=== PATIENT | female | born 1955 | race Caucasian/White ===

== ENCOUNTER 2023-11-24 10:09 | Outpatient (OUT) | payer MEDICARE, OTHER, SELFPAY ==
--- NOTE | 2023-11-24 | XR_ITS ---
The [address] [address] Patient Name: VIKTORIA HIDALGO MRN: [id number] date: 1955 Sex: F Assigned Patient Location: Current Patient Location: Accession/Order Number: [id number] Exam Date: 11/24/2023 10:10 Report Date: 11/25/2023 06:16 At the request of: JEEVAN RASCON Procedure: XR foot LT min 3V PROCEDURE: XR foot LT min 3V HISTORY: LEFT FOOT PAIN ; follow-up 5th metatarsal fracture COMPARISON: XR foot left 11/01/2023 FINDINGS: BONES:Stable mild medial displacement of the oblique fracture involving the neck of the 5th metatarsal. No appreciable callus formation or increased density of the fracture line. No articular surface involvement. Bunion formation of the first metatarsal head. SOFT TISSUES:Mild lateral soft tissue swelling. EFFUSION:None visible. OTHER: Negative. XR/XR foot LT min 3V IMPRESSION: 1. Stable 5th metatarsal fracture without radiographic evidence of bone healing. No change in alignment. Electronically authenticated by: SURI TUTTLE Date: 11/25/2023 06:16
== END 2023-11-24 10:10 | disposition home or self-care (01) ==
LOC: EC 10:09
PROVIDERS: PCP Family Medicine; Visit Provider Podiatrist Foot & Ankle Surgery
DX: M79.672 Pain in left foot (principal); S92.352A Displaced fracture of fifth metatarsal bone, left foot, initial encounter for closed fracture
CPT/HCPCS: 73630

== ENCOUNTER 2023-12-15 10:21 | Outpatient (OUT) | payer MEDICARE, OTHER, SELFPAY ==
--- NOTE | 2023-12-15 | XR_ITS ---
The [address] [address] Patient Name: VIKTORIA HIDALGO MRN: [id number] date: 1955 Sex: F Assigned Patient Location: Current Patient Location: Accession/Order Number: [id number] Exam Date: 12/15/2023 10:35 Report Date: 12/17/2023 04:33 At the request of: JEEVAN RASCON Procedure: XR foot CHEMA min 3V EXAMINATION: XR foot CHEMA min 3V HISTORY: BILATERAL FOOT PAIN COMPARISON: XR foot left 11/24/2023 FINDINGS: RIGHT FINDINGS: BONES: Mild degenerative change of the first metatarsophalangeal joint. Prominent calcaneal plantar spur. SOFT TISSUES: No visible soft tissue swelling. OTHER: Negative. LEFT FINDINGS: BONES: Mildly displaced oblique 5th metatarsal fracture with mild callus formation and slightly increased density of the fracture line. Mild bunion formation. Prominent calcaneal plantar spur. SOFT TISSUES: No visible soft tissue swelling. OTHER: Negative. XR/XR foot CHEMA min 3V IMPRESSION: RIGHT CONCLUSION: 1. Mild degenerative changes. No acute abnormality. LEFT CONCLUSION: 1. Stable mildly displaced 5th metatarsal fracture with evidence of early bone healing. No intra-articular extension. 2. Mild degenerative changes. Electronically authenticated by: SURI TUTTLE Date: 12/17/2023 04:33
--- OUTSIDE RECORDS SUMMARY | 2023-12-15 10:42 | XMS_ITS | CCD ---
Author Organization [facility] Care Team Providers Care Tool Maker Name Role Phone Svetlanadiogenesherber Benito S Primary Care Provider Wilmer Johnson Unavailable Unknown, Referring Provider Unavailable Unav ailable Unavailable Unavailable Unavailable Unavailable Unavailable Unavailable Inocencio Rosado Unavailable UNKNOWN, PCP Primary Care Unavailable Flower Nguyễn Attending Unavailable Flower Nguyễn Attending Unavailable Inocencio Rosado Primary Care Unavailab le TorFlower lan Attending Unavailable Inocencio Rosado Primary Care Unavailab le Torer, Ms. Crenshaw Attending Unavailable Torer, Ms. Crenshaw Referring Unavailable Ashlee, Dr. Inocencio Hairston Primary [facility] Unava ilable Torer, Ms. Crenshaw Attending Unavailable Toreliseo, Ms. Crenshaw Referring Unavailable Ashlee, Dr. Inocencio Hairston [facility] Care Unava ilable Torer, Ms. Crenshaw Referring Unavailable Torer, MsMaximiliano Crenshaw Attending Unavailable Ashlee, Dr. Inocencio Hairston Primary Care Unava ilable Torer, MsMaximiliano Crenshaw Referring Unavailable Torer, MsMaximiliano Crenshaw Attending Unavailable Ashlee, Dr. Inocencio Hairston [facility] Care Unava ilable Torer, Ms. Crenshaw Attending Unavailable Ashlee, Dr. Inocencio Hairston Primary [facility] Unava ilable Torer, MsMaximiliano Crenshaw Referring Unavailable Torer, MsMaximiliano Crenshaw Attending Unavailable Torer, MsMaximiliano Crenshaw Referring Unavailable Ashlee, Dr. Inocencio Hairston [facility] Unava ilable Torer, Ms. Crenshaw Attending Unavailable Torer, Ms. Crenshaw Referring Unavailable Cadigan, Dr. Inocencio Hairston [facility] Unava ilable Unavailable Unavailable Calderon, Dr. Aundrea Guadalupe Attending Vanessa vailable Calderon, Dr. Aundrea Guadalupe Referring Vanessa vailable Cadigan, Dr. Inocencio Hairston [facility] Unava ilable TORELISEO, TAMMI CAMPA Attending Unavailable TORELISEO, TAMMI CAMPA Referring Unavailable Cadigan, Dr. Inocencio Hairston [facility] Unava ilable Zoie Crump Attending Unavailable Zoie Crump Referring Unavailable Cadigan, Dr. Inocencio Hairston [facility] Unava ilable Astor, Ms. Griselda Attending Unavailable Cassius, Ms. Griselda Referring Unavailable Cadigan, Dr. Inocencio Hairston [facility] Unava ilable Yakelin Acosta Attending Unavailable Cassius, Ms. Griselda Referring Unavailable Cadigan, Dr. Inocencio Hairston [facility] Monique Unava ilable Cassius, Ms. Griselda Attending Unavailable Cassius, Ms. Griselda Referring Unavailable Cadigan, Dr. Inocencio Hairston [facility] Monique Unava ilable Cassius, Ms. Griselda Attending Unavailable Astor, Ms. Griselda Referring Unavailable Cadigan, Dr. Inocencio Hairston [facility] Unava ilable Astor, Ms. Griselda Attending Unavailable Cassius, Ms. Griselda Referring Unavailable Cadigan, Dr. Inocencio Hairston [facility] Unava ilable Zoie Crump Attending Unavailable Zoie Crump Referring Unavailable Cadigan, Dr. Inocencio Hairston [facility] Monique Unava ilable Karie, Ms. Cosme Jaeger Attending Unava ilable Zoie Crump Referring Unavailable Cadigan, Dr. Inocencio Hairston [facility] Monique Unava ilable Karie, Ms. Cosme Jaeger Attending Unava ilable Zoie Crump Referring Unavailable Cadigan, Dr. Inocencio Hairston [facility] Unava ilable Astor, Ms. Griselda Attending Unavailable Astor, Ms. Griselda Referring Unavailable Cadigan, Dr. Inocencio Hairston [facility] Unava ilable Eve Mccollum Attending Unavailable ProsEve wilkins Referring Unavailable Cadigan, Dr. Inocencio Hairston [facility] Unava ilable Cassius, Ms. Griselda Attending Unavailable Astor, Ms. Griselda Referring Unavailable Cadigan, Dr. Inocencio Hairston [facility] Unava ilable Cassius, Ms. Griselda Attending Unavailable Cassius, Ms. Griselda Referring Unavailable Cadigan, Dr. Inocencio Hairston [facility] Unava ilable Astor, Ms. Grieslda Attending Unavailable Astor, Ms. Griselda Referring Unavailable Cadigan, Dr. Inocencio Hairston [facility] Unava ilable Daniel Jimenez Attending Unavailable Cadigan, Dr. Inocencio Hairston Referring Unava ilable Cadigan, Dr. Inocencio Hairston [facility] Unava ilable Daniel Jimenez Attending Unavailable TORER, TAMMI SESAYIANA Referring Unavailable Cadigan, Dr. Inocencio Hairston [facility] Unava ilable Astor, Ms. Griselda Attending Unavailable Astor, Ms. Griselda Referring Unavailable Cadigan, Dr. Inocencio Hairston [facility] Unava ilable Prosak, Eve Attending Unavailable Prosak, Eve Referring Unavailable Cadigan, Dr. Inocencio Hairston [facility] Unava ilable Cassius, Ms. Griselda Attending Unavailable Cassius, Ms. Griselda Referring Unavailable Cadigan, Dr. Inocencio Hairston [facility] Unava ilable Prosak, Eve Attending Unavailable Prosak, Eve Referring Unavailable Cadigan, Dr. Inocencio Hairston [facility] Unava ilable Prosak, Eve Attending Unavailable Prosak, Eve Referring Unavailable Cadigan, Dr. Inocencio Hairston [facility] Unava ilable BRADESCA, PAC LISSA ELIANA Attending Unavai lable BRADESCA, PAC LISSA ELIANA Referring Unavai lable Cadigan, Dr. Inocencio Hairston [facility] Unava ilable Devon, Dr. Xavier Bianchi Attending Unavail able Trager, Dr. Xavier Bianchi Referring Unavail able Cadigan, Dr. Inocencio Hairston [facility] Unava ilable Trager, Dr. Xavier Bianchi Attending Unavail able Trager, Dr. Xavier Bianchi Referring Unavail able Cadigan, Dr. Inocencio Hairston [facility] Unava ilable BRADESCA, PAC LISSA ELIANA Attending Unavai lable BRADESCA, PAC LISSA ELIANA Referring Unavai lable Cadigan, Dr. Inocencio Hairston [facility] Unava ilable Astor, Ms. Griselda Attending Unavailable Cassius, Ms. Griselda Referring Unavailable Cadigan, Dr. Inocencio Hairston [facility] Unava ilable Cassius, Ms. Griselda Attending Unavailable Astor, Ms. Griselda Referring Unavailable Cadigan, Dr. Inoecncio Hairston Primary Care Unava ilable Cassius, . Griselda Attending Unavailable Astor, Ms. Griselda Referring Unavailable Cadigan, Dr. Inocencio Hairston Primary Care Unava ilable Astor, MsMaximiliano Villalobos Attending Unavailable Cassius, Ms. Griselda Referring Unavailable Cadigan, Dr. Inocencio Hairston Primary Care Unava ilable Astor, MsMaximiliano Villalobos Attending Unavailable Astor, Ms. Griselda Referring Unavailable Ashlee, Dr. Inocencio Hairston Primary Care MD Inocencio Austin Primary Care Provider ORLANDO Goff Attending Provider Ashu Goff Attending Unavailab Ashu Willis Admitting Unavailab caridad Rosado, Inocencio Gilmore Primary Care Unavailable Inocencio Rosado MD Primary Care Provider Inocencio Rosado MD Attending Unavailable Inocencio Rosado MD Primary Care Unavailable HOUSE, NICOLE P Primary Care Unavailable HOUSE, NICOLE P Primary Care Unavailable HOUSE, NICOLE P Primary Care Unavailable HOUSE, NICOLE P Primary Care Unavailable HOUSE, DO NICOLE P Admitting Unavailable HOUSE, DO NICOLE P Attending Unavailable Moser, Patricio L Attending Unavailable HOUSE, NICOLE P Primary Care Unavailable Moser, Patricio Silverio Admitting Unavailable HOUSE, DO NICOLE P Attending Unavailable HOUSE, NICOLE P Primary Care Unavailable HOUSE, DO NICOLE George Admitting Unavailable Inocencio Rosado MD Primary Care Unavailable Shell, Ashu Admitting Unavailable Ashu Goff Attending Unavailable HOUSE, NICOLE P Primary Care Unavailable HOUSE, DO NICOLE P Attending Unavailable HOUSE, DO NICOLE P Attending Unavailable Inocencio Rosado MD Primary Care Unavailable HOUSE, DO NICOLE P Admitting Unavailable HOUSE, DO NICOLE P Attending Unavailable HOUSE, NICOLE P Primary Care Unavailable Inocencio Rosado MD Attending Unavailable Inocencio Rosado MD Primary Care Unavailable Medications Current Medications Medication Drug Class(es) Dates Sig (Normalized) Sig (Original) azelastine hydrochloride 0.137 mg/actuat metered dose nasal spray (20 sources) Histamine-1 Receptor Antagonist Start: 09-10-2021 azelastine (Astelin) 137 mcg (0.1 %) nasal spray Administer into affected nostril(s). 0 09/10/2021 Active Start: 06-07-2017 End: 07-14-2021 Azelastine Discontinued 2 SP RAY INTRANASAL As Directed June 07, 2017 12:00am July 14, 2021 7:41am azelastine (ASTE MAKSIM) 0.1% nasal spray Use 1 Colt in each nostril as needed. 0 Active 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: Use 1 Colt in each nostril as needed. Calcium (20 sources) Phosphate Binder, Calcium Start: 06-07-2017 take 1 tablet by mouth three times daily Fy-N7-Hfa-Zinc-Buffer Operator- Cesar-Nehalem (Caltrate 600-D Plus Minerals) 600 mg calcium- 800 unit-40 mg Tablet,Chewable Active 1 TAB PO Three times daily June 07, 2017 12:00am Calcium + D TABS Quantity: 0 Refills: 0 Ordered: 16-Oct-2021 DO Active CALCIUM CITRATE-VITAMIN D3 ORAL (1 source) CALCIUM CITRATE-VITAMIN D3 ORAL Take by mouth. 0 Active cetirizine hydrochloride 10 mg oral tablet (20 sources) Histamine-1 Receptor Antagonist Start: 06-07-19 take 1 tablet by mouth every twenty-four hours as needed cetirizine (ZyrTEC) 10 mg tablet Take 1 tablet (10 mg) by mouth once daily as needed. 0 10/06/2021 Active cetirizine HCl ( ZYRTEC ORAL) Take by mouth. 0 Active 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: Take by mouth. chlorzoxazone 500 mg oral tablet (1 source) Muscle Relaxant Start: take 1 tablet by mouth four times daily as needed chlorzoxazone (PARAFON FORTE DSC) 500 mg tablet Indications: Migraine without aura and without status migrainosus, not intractable , Cervical paraspinal muscle spasm , Occipital neuralgia of right side Take 1 tablet by mouth four times daily as needed. 20 tablet 0 09/19/2021 Active Start: 09-19-2021 take 1 tablet by joey th four times daily as needed chlorzoxazone (PARAFON FORTE DSC) 500 mg tablet Indications: Migraine without aura and without status migrainosus, not intractable , Cervical paraspinal muscle spasm , Occipital neuralgia of right side Take 1 tablet by mouth four times daily as needed. 20 tablet 0 09/19/2021 Active 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: Take 1 tablet by joey th four times daily as needed. esomeprazole 40 mg delayed release oral capsule (1 source) Proton Pump Inhibitor Start: 3 take 1 capsule by mouth once daily esomeprazole (NexIUM) [address] capsule Take 1 capsule (40 mg) by mouth once daily. 0 06/04/2022 Active eszopiclone 3 mg oral tablet (20 sources) Start: 8 take 1 tablet by mouth once daily at bedtime Lunesta 3 mg tablet Take 1 tablet (3 mg) by mouth once daily at bedtime. 0 10/06/2021 Active eszopiclone (ROBERTO ESTA ORAL) Take by mouth. 0 Active 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: Take by mouth. ferrous sulfate 325 mg oral tablet (3 sources) Start: 07-14-2021 take 1 tablet by mouth twice daily Ferrous Sulfate (Iron (Ferrous Sulfate)) 325 mg (65 mg iron) Tablet Active 325 MG PO Twice daily July 13, 2021 11:00pm 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: 325 mg twice daily. LORazepam 0.5 mg oral tablet (20 sources) Benzodiazepine Start: 10-06-2021 take 1 tablet by mouth every twenty-four hours as needed Ativan 0.5 mg tablet Take 1 tablet (0.5 mg) by mouth once daily as needed. 0 10/06/2021 Active Start: 06-22-2021 LORazepam (ATI VAN) 0.5 mg 0.5 mg as needed. anxiety 0 06/22/2021 Active 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: 0.5 mg as needed. an xiety magnesium oxide 400 mg oral tablet (1 source) magnesium oxide (Mag-Ox) 400 mg tablet Take by mouth. 0 Active niacinamide 500 mg oral tablet (20 sources) Start: 10-06-2021 take 1 tablet by mouth once daily niacinamide 500 mg tablet Take 1 tablet (500 mg) by mouth once daily. 0 10/06/2021 Active Start: 07-14-2021 take 500 mg by mouth twice daily Niacinamide Active 500 MG PO Twice daily July 13, 2021 11:00pm NON FORMULARY (1 source) NON FORMULARY Vy epti 100 mg/ml intravenous solution infuse 300mg in 100 ml naci 0.9% iv over 30 min every 3 months 0 Active omeprazole 20 mg delayed release oral capsule (2 sources) Proton Pump Inhibitor Start: 07-14-2021 take 20 mg by mouth once daily Omeprazole Active 20 MG PO Daily July 13, 2021 11:00pm Start: 05-03-2021 Omeprazole 20 MG Oral Capsule Delayed Release Quantity: 90 Refills: 0 Ordered: 03-May-2021 DO Start : 03-May-2021 Active predniSONE 10 mg oral tablet (20 sources) Start: 09-24-2022 predniSONE (De ltasone) 10 mg tablet Take by mouth. 0 09/24/2022 Active Start: 09-24-2022 take 2 tablets by mo [facility] every other day, then take 4 tablets by mouth every other day, then take 3 tablets by mouth once daily, then take 2 tablets by mouth once daily predniSONE 10 MG Oral Tablet Take 60MG PO dailyX 2 days,50MG PO dailyx 2 days, 40MG PO dailyx 2 days, 30MG PO daily X2days, 20MG PO daily x2days,10MG PO x2 days Quantity: 45 Refills: 0 Ordered: 24-Sep-2022 Zoie Estrada Start : 24-Sep-2022 Active Start: 10-15-2021 take 2 tablets by mo uth every other day, then take 4 tablets by mouth every other day, then take 3 tablets by mouth once daily, then take 2 tablets by mouth once daily predniSONE 10 MG Oral Tablet Take 60MG PO dailyX 2 days,50MG PO dailyx 2 days, 40MG PO dailyx 2 days, 30MG PO daily X2days, 20MG PO daily x2days,10MG PO x2 days Quantity: 45 Refills: 0 Ordered: 17-Dec-2021 Zoie Estrada Start : 15-Oct-2021 Active Qulipta 60 mg tablet tablet (1 source) take 1 tablet by mouth once daily Qulipta 60 mg tablet tablet Take 1 tablet (60 mg) by mouth once daily. With or without food 0 Active RABEprazole sodium 20 mg delayed release oral tablet (20 sources) Proton Pump Inhibitor RABEprazol e (Aciphex) EC tablet Take by mouth. 0 Active RABEprazole Sodi um 20 MG Oral Tablet Delayed Release Quantity: 0 Refills: 0 Ordered: 12-Nov-2021 DO Active RABEprazole Sodi um 20 MG Oral Tablet Delayed Release Quantity: 0 Refills: 0 Ordered: 16-Oct-2021 DO Active topiramate 25 mg oral tablet (2 sources) Start: 07-14-2021 take 25 mg by mouth once daily Topiramate Active 25 MG PO Daily July 13, 2021 11:00pm Start: 06-18-2021 Topiramate 25 MG Oral Tablet Quantity: 60 Refills: 0 Ordered: 18-Jun-2021 DO Start : 18-Jun-2021 Complete verapamil hydrochloride 120 mg oral tablet (1 source) Calcium Channel [place] Start: 07-14-2021 take 120 mg by mouth once daily Verapamil Active 120 MG PO Daily July 13, 2021 11:00pm Completed/Discontinued Medications Medication Drug Class(es) Dates Sig (Normalized) Sig (Original) acetaminophen 325 mg / butalbital 50 mg oral tablet (4 sources) Barbiturate Start: 10-06-2021 Butalbital-Acetami nophen 50-325 MG Oral Tablet TAKE 1 TABLET EVERY 3-4 HOURS NEEDED FOR COMFORT. Quantity: 0 Refills: 0 Ordered: 06-Oct-2021 DO Start : 06-Oct-2021 Active butalb/acetaminophen/ caffeine (BUTALBITAL-ACETAMINO PHEN-CAFF ORAL) (1 source) Start: 07-03-2021 End: 08-06-2021 butalb/acetaminoph en/caffeine (BUTALBITAL-ACETAM INOPHEN-CAFF ORAL) calcium carb/vit D3/minerals (CALCIUM-VITAMIN D ORAL) (2 sources) calcium carb/vit D3/minerals (CALCIUM-VITAMIN D ORAL) Take by mouth. 0 Active 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: Take by mouth. calcium citrate 1190 mg / cholecalciferol 0.005 mg oral tablet (1 source) Vitamin D Start: 06-07-2017 End: 07-14-2021 take 1 tablet by mouth once daily Calcium Citrate-Vitamin D3 (Citracal Regular) 250 mg calcium- 200 unit Tablet Discontinued 1 TAB PO Daily June 07, 2017 12:00am July 14, 2021 7:45am Bouwxkt-Ymmrogqnm-Ecc rodriguez D 600-300-400 Oral Liquid (13 sources) Start: 10-06-2021 Calcium-Magnesium- Vitamin D 600-300-400 Oral Liquid Quantity: 0 Refills: 0 Ordered: 06-Oct-2021 DO Start : 13-Bruce-2022 Active ciprofloxacin 500 mg oral tablet (1 source) Quinolone Antimicrobial Start: 10-07-2021 Ciprofloxacin HCl - 500 MG Oral Tablet Quantity: 14 Refills: 0 Ordered: 07-Oct-2021 DO Start : 07-Oct-2021 Complete DULoxetine 60 mg delayed release oral capsule (1 source) Serotonin and Norepinephrine Reuptake Inhibitor Start: 07-01-2021 take 1 capsule by mouth at bedtime DULoxetine HCl - 60 MG Oral Capsule Delayed Release Particles take 1 capsule by mouth at bedtime Quantity: 30 Refills: 1 Ordered: 15-Oct-2021 Zoie Estrada Start : 01-Jul-2021 Active 1 ml eptinezumab-jjmr 100 mg/ml injection (13 sources) Start: 10-28-2022 Vyepti 100 MG/ML Intravenous Solution INFUSE 300 MG Intravenous Quantity: 0 Refills: 0 Ordered: 28-Oct-2022 Zoie Estrada Start : 28-Oct-2022 Complete Start: 06-11-2022 Vyepti 100 MG/ ML Intravenous Solution Infuse Vyepti 300mg (= 3mL) in 100ml NaCl 0.9% IV over 30 min every 3 months. Quantity: 3 Refills: 3 Ordered: 23-Sep-2022 Zoie Estrada Start : 11-Jun-2022 Active Please note increased dosage...failed beta-blockers, SSRI, anticonvulsant. Nurtec and injectable CGRP medications co-pays are greater than $500 per month Start: 06-11-2022 inject 100 mg intrav enously every month Vyepti 100 MG/ML Intravenous Solution Infuse 100mg (1ml) IV every 3 months Quantity: 1 Refills: 3 Ordered: 11-Jun-2022 Zoie Estrada Start : 11-Jun-2022 Active Failed beta-blockers, SSRI, anticonvulsant. Nurtec and injectable CGRP medications co-pays are greater than $500 per month escitalopram 10 mg oral tablet (1 source) Serotonin Reuptake Inhibitor Start: 06-07-2017 End: 07-14-2021 take 1 tablet by mouth once daily Escitalopram Oxalate (Lexapro) 10 mg Tablet Discontinued 10 MG PO Daily June 07, 2017 12:00am July 14, 2021 7:43am 1.5 ml fremanezumab-vfrm 150 mg/ml auto-injector (2 sources) Start: 06-08-2022 inject 225 mg by subcutaneous injection every month Ajovy 225 MG/1.5ML Subcutaneous Solution Auto-injector Take 225mg SC monthly Quantity: 1 Refills: 5 Ordered: 08-Jun-2022 Zoie Estrada Start : 08-Jun-2022 Active gabapentin 300 mg oral capsule (6 sources) Anti-epileptic Agent Start: 08-06-2021 End: 11-05-2021 take 1 capsule by mouth three times daily Gabapentin 300 MG Oral Capsule TAKE 1 CAPSULE 3 TIMES DAILY. Quantity: 0 Refills: 0 Ordered: 06-Oct-2021 DO Start : 06-Oct-2021 Active 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: Take 1 capsule at be dtime for 5-7 days, then increase to 1 capsule twice daily for 5-7 days, then increase to 1 capsule three times daily and continue hydrocortisone 25 mg/ml topical cream (1 source) Corticosteroid Start: 06-07-2017 End: 07-14-2021 Hydrocortisone Discontinued June 07, 2017 12:00am July 14, 2021 7:45am indomethacin 25 mg oral capsule (1 source) Nonsteroidal Anti-inflammator y Drug Start: 05-30-2021 Indomethacin 25 MG Oral Capsule Quantity: 126 Refills: 0 Ordered: 30-May-2021 DO Start : 30-May-2021 Complete ketorolac tromethamine 10 mg oral tablet (3 sources) Nonsteroidal Anti-inflammator y Drug, Cyclooxygenase Inhibitor Start: 10-15-2021 take 1 tablet by mouth every six hours at mealtime Ketorolac Tromethamine 10 MG Oral Tablet TAKE 1 TABLET EVERY 6 HOURS WITH FOOD. Quantity: 20 Refills: 0 Ordered: 15-Oct-2021 Zoie Estrada Start : 15-Oct-2021 Active Magnesium (20 sources) Magnesium TABS Quantity: 0 Refills: 0 Ordered: 16-Oct-2021 DO Active methylsulfonylmethane (2 sources) methylsulfonylme elizabeth (MSM ORAL) Take by mouth. 0 Active 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: Take by mouth. MSM CAPS (20 sources) MSM CAPS Quantit y: 0 Refills: 0 Ordered: 16-Oct-2021 DO Active NIACIN, BULK, MISC (2 sources) NIACIN, BULK, [place] SC Qulipta 60 MG Oral Tablet (20 sources) Start: 10-15-2021 take 1 tablet by mouth once daily Qulipta 60 MG Oral Tablet Take one Tablet daily with our without food Quantity: 90 Refills: 3 Ordered: 15-Oct-2021 Zoie Estrada Start : 15-Oct-2021 Active Failed beta-blockers, SSRIs, injectable CGRP's, topiramate, Effexor, gabapentin rimegepant 75 mg disintegrating oral tablet (1 source) Start: 06-03-2022 take 1 tablet by mouth every other day Nurtec 75 MG Oral Tablet Disintegrating Take 75mg PO every other day Quantity: 16 Refills: 5 Ordered: 03-Jun-2022 Zoie Estrada Start : 03-Jun-2022 Active Failed beta-blockers, SSRIs, topiramate, gabapentin, Effexor rizatriptan 10 mg oral tablet (15 sources) Serotonin-1b and Serotonin-1d Receptor Agonist Start: 10-06-2021 take 1 tablet by mouth every two hours as needed, then take 3 tablets by mouth every twenty-four hours as needed Rizatriptan Benzoate 10 MG Oral Tablet TAKE 1 TABLET AT ONSET OF HEADACHE. MAY REPEAT EVERY 2 HOURS NEEDED. MAXIMUM 3 TABLETS IN 24 HOURS. Quantity: 0 Refills: 0 Ordered: 06-Oct-2021 DO Start : 06-Oct-2021 Active Start: 08-06-2021 take 1 tablet by joey th every two hours as needed for headache rizatriptan (MAXALT) 10 mg tablet Indications: Migraine without aura and without status migrainosus, not intractable Take 1 tablet by mouth as needed for migraine headache (see administration instructions). AT ONSET OF HEADACHE. MAY REPEAT AFTER 2 HOURS. DO NOT TAKE MORE THAN 10 DAYS/MONTH. 12 tablet 2 08/06/2021 Active 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: Take 1 tablet by joey th as needed for migraine headache (see administration instructions). AT ONSET OF HEADACHE. MAY REPEAT AFTER 2 HOURS. DO NOT TAKE MORE THAN 10 DAYS/MONTH. 24 hr divalproex sodium 500 mg extended release oral tablet (5 sources) Mood Stabilizer, Anti-epileptic Agent Start: take 1 tablet by mouth at bedtime Divalproex Sodium ER 500 MG Oral Tablet Extended Release 24 Hour TAKE 1 TABLET AT BEDTIME. Quantity: 0 Refills: 0 Ordered: 06-Oct-2021 DO Start : 06-Oct-2021 Active Start: 07-25-2021 End: 08-06-2021 divalproex ER (DEPAKOTE ER) 500 mg 24 hr tablet 500 mg. 0 07/25/2021 08/06/2021 Discontinued 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: 500 mg. 24 hr venlafaxine 37.5 mg extended release oral capsule (20 sources) Serotonin and Norepinephrine Reuptake Inhibitor Start: 10-25-19 take 1 capsule by mouth once daily Venlafaxine HCl ER 37.5 MG Oral Capsule Extended Release 24 Hour Take 1 cap by mouth daily with 75mg effexor for a total dose of 112.5mg Quantity: 30 Refills: 1 Ordered: 24-Oct-2021 Joana Silverman Start : 24-Oct-2021 Active Start: 10-16-2021 take 1 capsule by mo uth once daily venlafaxine XR (Effexor-XR) 150 mg 24 hr capsule Take 1 capsule (150 mg) by mouth once daily. 0 10/16/2021 Active Start: 10-16-2021 take 1 capsule by mo uth once daily Venlafaxine HCl ER 75 MG Oral Capsule Extended Release 24 Hour take 1 capsule by mouth once daily Quantity: 30 Refills: 1 Ordered: 16-Oct-2021 Joana Silverman Start : 16-Oct-2021 Active Start: 10-06-2021 take 1 capsule by mo uth once daily at mealtime Effexor XR 37.5 MG Oral Capsule Extended Release 24 Hour TAKE 1 CAPSULE ONCE DAILY WITH FOOD. Quantity: 0 Refills: 0 Ordered: 06-Oct-2021 DO Start : 06-Oct-2021 Active Start: 07-14-2021 venlafaxine (E FFEXOR) 37.5 mg tablet Problems Active Problems Problem Classification Problem Date Documented Da te Episodic/Chronic Anxiety disorders (20 sources) Anxiety disorder; Translations: [Anxiety state, unspecified] Onset: 12-15-2021 Chronic Headache; including migraine (20 sources) Migraine without aura, not refractory ; Translations: [Migraine without aura, not intractable, without status migrainosus] Onset: 12-15-2021 Resolved: 04-06-2022 Chronic Mood disorders (1 source) Mood disorders; Translations: [Depression, unspecified] Onset: 12-15-2021 Nutritional deficiencies (12 sources) Vitamin D deficiency; Translations: [Unspecified vitamin D deficiency] Onset: 01-27-2023 01-27-2023 Chronic Other connective tissue disease (2 sources) Spasm of cervical paraspinous muscle; Translations: [Other muscle spasm] Episodic Other infections; including parasitic (20 sources) Late effects of other and unspecified infectious and parasitic diseases; 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 Other infections; including parasitic (20 sources) Personal history of other infectious and parasitic diseases; Translations: [Personal history of COVID-19] Episodic Residual codes; unclassified (20 sources) Obstructive sleep apnea syndrome; Translations: [Obstructive sleep apnea (adult)(pediatric)] Onset: 01-27-2023 Resolved: 04-06-2022 05-24-2023 Chronic Residual codes; unclassified (1 source) Obstructive sleep apnea (adult) (pediatric); Translations: [Obstructive sleep apnea (adult) (pediatric)] Onset: 12-15-2021 Chronic Residual codes; unclassified (1 source) Hypersomnia, unspecified; Translations: [Hypersomnia, unspecified] Onset: 10-06-2021 Chronic Residual codes; unclassified (1 source) Family history of cancer of colon; Translations: [Family history of malignant neoplasm of digestive organs] 06-08-2017 Episodic Spondylosis; intervertebral disc disorders; other back problems (20 sources) Cervico-occipital neuralgia; Translations: [Occipital neuralgia] Episodic Unclassified (2 sources) Personal history of COVID-19; Translations: [Personal history of COVID-19] Onset: 10-06-2021 Unclassified (1 source) Post COVID-19 condition, unspecified; Translations: [Post COVID-19 condition, unspecified] Onset: 04-06-2022 Unclassified (1 source) Ocular pain, right eye; Translations: [Ocular pain, right eye] Onset: 03-30-2023 Past or Other Problems Problem Classification Problem Date Documented Da te Episodic/Chronic Cardiac dysrhythmias (20 sources) Palpitations; Translations: [Palpitations] Onset: 10-06-2021 Episodic Conditions associated with dizziness or vertigo (20 sources) Lightheadedness; Translations: [Dizziness and giddiness] Onset: 12-15-2021 Episodic Malaise and fatigue (20 sources) Fatigue; Translations: [Other malaise and fatigue] Onset: 12-15-2021 01-27-2023 Episodic Mood disorders (20 sources) Depressive disorder; Translations: [Depressive disorder, not elsewhere classified] Resolved: 04-06-2022 Chronic Other bone disease and musculoskeletal deformities (15 sources) Ankylosis of sacroiliac joint; Translations: [Disorders of sacrum] Onset: 01-27-2023 01-27-2023 Episodic Other bone disease and musculoskeletal deformities (20 sources) Segmental and somatic dysfunction; Translations: [Nonallopathic lesions, thoracic region] Onset: 01-27-2023 01-27-2023 Episodic Other connective tissue disease (5 sources) Disorder of soft tissue; Translations: [Disorders of soft tissue, unspecified] Onset: 01-27-2023 01-27-2023 Episodic Other nervous system disorders (20 sources) Other symptoms and signs involving cognitive functions and awareness; Translations: [Cognitive changes] Onset: 12-15-2021 01-27-2023 Episodic Residual codes; unclassified (20 sources) Hypersomnia; Translations: [Hypersomnia, unspecified] Resolved: 04-06-2022 Chronic Residual codes; unclassified (20 sources) Generalized aches and pains; Translations: [Generalized pain] Onset: 01-27-2023 01-27-2023 Episodic Residual codes; unclassified (1 source) H/O: vertigo; Translations: [Personal history of other disorders of nervous system and sense organs] Resolved: 04-06-2022 Episodic Residual codes; unclassified (18 sources) History of palpitations; Translations: [Personal history of other diseases of circulatory system] Resolved: 04-06-2022 Episodic Residual codes; unclassified (1 source) Pain, unspecified; Translations: [Pain, unspecified] Onset: 10-06-2021 Episodic Residual codes; unclassified (10 sources) Reduced libido; Translations: [Decreased libido] Onset: 01-27-2023 01-27-2023 Episodic Residual codes; unclassified (10 sources) Postmenopausal state; Translations: [Asymptomatic postmenopausal status (age-related) (natural)] Onset: 01-27-2023 01-27-2023 Episodic Screening and history of mental health and substance abuse codes (20 sources) H/O: depression; Translations: [Personal history of other mental disorders] Resolved: 04-06-2022 Episodic Sprains and strains (5 sources) Strain of trapezius muscle; Translations: [Late effect of sprain and strain without mention of tendon injury] Onset: 01-27-2023 01-27-2023 Episodic Unclassified (1 source) Personal history of COVID-19; Translations: [Personal history of COVID-19] Onset: 10-06-2021 Unclassified (1 source) Onset: 05-24-2023 05-24-2023 Results Test Name Value Interpretation Reference Range Facility Coding Summaryon 11-30-2023 Coding Summary HTMLBase 64 EmwtqbbeIJf3tDh+PGhlYWQ+PE1F UHYtD57fzVCqsB8qX8WUMToYHqal VBTMCWjQYxSxkzMxHV8ztETdDMQb IC8+WD1sHYZmCdewrUUdr6G9lKG9 B34maz3oJDxfdBU5NYYdPvWtbivp n6yczMf7IXroKygaJrSu ANUbhL61LHJ8mW70Yf34vIZpgGNx r1bdhGv5UjUxCQTkOHB1fVkhYEyp g3SoYIAtI46hhQWxp5F9 SDPfnIktsXOaZtKlfYC9vS7cLHjh sfudd9hxhxbhIpq0fy98uKDnf2P4 wRE7J1JvcsZ8WBIefDXc McawvZRFwU5cznows0pnscpqEaRu VIMfDLd0FYu1FODqiQehJoCyZM56 XZR7JQJdumRlT0JrYEEp zYejFbS1g5R1Gw5FU8SYHiquQ5LV TUFSWTwvdGQ+ZN95yh26S3XrZdvo Lcg9TEQbIPB2xHF2iL3k AIZiDYxce7J3uIM2W0AiyrHvuu7j x6mmNCArGPskR94whTJbu2E6LZUw zEZ0KENzwXqkNsSrrB57 Oyc+YBLruWonb9HcCmuyl7syi1bk gKv6WqswSTVsfpWnnKtjGRB7v5Rt Ge9gXWKfvUK1rID4rL2r OuEmUxP1IJntJ886XiNpbUPzMkzi I79bZ8GloAZ+KOYtUem2SUZqpLuf WB2zR8BpHPHpovnxfHYw yThsNG0jNCLijojuNGXreI6yQIWq Y2o1XgRnTaD5SDhuE9YqKGEwngqq Bv62vO7kQpEyNiW8BOqi M5PhyrD3CMPawYWpLIguAPD9P86m h9Y4ZZUmWASlWSR7yQF2cM8tlRav bjogbGVmdDsgdmVydGlj NKirLPpwI847MUZoaOhqJjItCDmm ZyBEYXRlOiAgMDgvMDYvMjAyNDwv dGQ+LFVaONA3wNjvPHBj nXOuJTgdAx0qkCpwvRnbHD4iEYIt amqyQLIjfY0eBTPndBQjnYsxVA4k OANgrsdlk929JzCxBXL6 HAHmcGGtS2JlmR4cJkPgOKUxSSLw V5QfdVJhMPfoO804XAohVnZ6JGXq ehVcB6SfJVGjfIynGuX7 r4L0En6La2YisyklF0BctDJiPnGk IwqnHGy0Q0JmWfxrvXC+PA43IBJv TZ63MDe7LBU3rDuaNJle EKJtU5BjvU4sIqFjBSPdFRMuRdq+ PHRhYmxlIHdpZHRoPScxMDAlJyBz nYxzQM3cIu7hCVXbVHIk oMyxiCZxUiGjl0fsOJTzLNplYI8m dDbtZ5BgzDE7RFBta9e0Sl02X04a V9KqwJZ+SLMysYO4nKH4 jK4xCtGkJeN4VZgeU141DwKhjXMq Kkdyo7djb2dgmJv8AaS0QRUznzZm kWhkRYD6h2VyAh48D00x KIbmOJXvORVpIZAaZUCriCkryk9k aC2tDq3+VZNirUB4sUX1xO4vZwTp CgR9GTjgN065YuKbuQOo Bcqwa1tum0mbgSt0YoPbHNOfhrOd iEjfQKQ7q8SzNn29Y2OpsHbpj3Sp Ymt8ic53bGNjb4S8kWX3 T0CqTLRymvqntFIbwDiqME5iUSBd scpnTKGklF8oZWUoF9f9BfQjSuB4 XCweO2ShbaR5WJPqfNSf YSKgqAQEeS3honkus3habwbzOfNp FNGvQTh5YQr7NRDlpFvzQwNnOBP1 JhH0YVB8vESxsB5thNdu wrwuhA4jNba+NHN2eOEplRYKFJ5m OjwvdGQ+ULLiVAA6iCyqSLdaENDf yV8pWDGrZ1g0HzAxExV0 OGcfS4DxxrE3HPJlzLOoDFOyuKLQ fZ4wmpjwy6flpefaEaPyZTWiKVf9 NMw3JEQimCxtUeGaJCP0 NwT5BMC2xOScnA9czDvemenrvP3d Oyc+WlczvRxsLPT1JOd4U0OfWbk3 ZPWuuVpfTW1muGCtNItg Xf6qzAoyiWooGC0cEBHfxwimp013 VyLxk7toXRHtbXOkUKkhXOO4E15b d8E9OXXxAMGiQLB0gGL4 tY4ywKnitpsqzQKfuIijbhUfxSrr COqeNHngY327EMHmqFajRzGeIFj1 A3HtVjt0IEOgqVwoZM5i hDGeTMwfDc8fkBhzeXxsUT1sCMXf qdrjk321QdXpm3bzXQGebOEgEHwu RNP2O67mw4C0LQNiVTCf ZCF6wLH0jY1fuZnxfjiohNUyfOgg aqQrdEgcGJwaWSvoB459DWMiuHvg NkDyaRu1Y1GwFly2XODk hCkvWC2weKAsXNlbDr3bjHrgqQnx VU4pLQGgmufud903ScXgh5goPSIn pWHsOYpnBRI0F78xk8R4 HELoBCShCSU8xOS5vO7lbQuijalb yEXglGumfgNwdXvqTJrvFTlzQ204 IHRvcDsnPlBhdGllbnQg PWvlEIw2I8OzTxfgkCY+IK46VXEc JP17yKEijCYxz7nxxFn3VxGwXBZz WNK9sRxpOFvig8AbXMZn S98uwORkz9C5EUErlGfzwEWnOaEm fSA2uR6fYZrnkdbty3eniyfeZtoa m5eymv69hD33W47yNEml OZOrVOMnLLTjIQNceDqrsq1rxB9n Ii8+DXWkwYN8kNR1cN7yFMRtNvP1 JEvuK328BiShwYDdJvee x9kpi6xpuQv5YcY4GRVhbnNnfJmq AOT1t5EfIg60B92tPYoaZJFzTMNh HEZhGQKoiSygkg4kbI4g Ii8+CLUlcEB6tPN2fT9gUhGdJsC6 VQwwV766YpDbeQLwDipvL82zB4Og dXA+QOLtEgp9VIUitOgb BD3zdPQkOUnmPd9wNXJ4BuSfPqHo PGjxA2HmJLVikoytygulcNR9HAHu BPOxlF39Kl7gfKwvHCNh zNEKlU6eyydbk0nnmfozKjPiABSp EWk6HCr8XXUpfPvdDvBpQDB4FoF6 DYP5xPRucZ6qbQtvwmyy pL4gY6PjTSQglmdsOn76vT7yBtTx JzQ5TRpnUvn+B6TIA8sYMEHDJFrJ TSFJLj25R5CaIrq6NQIr kGkzHY9ciUJrOIgqVx5ngNguyHnk GQ0rYMXizrdjQDRneH0aBLKjlRSc tNmmHM5sPTQwamvrh438 VgSsOVG0DVVklUJjV7CsuV2rCoYl IGXoWRCjJ5TyoKUlREhqQ877BUha ZjD2SJIejrPpW4SgEHLs mIyfTrW2y3E8Ie0xXZ1rGG8eAGA2 FT42PP17eRKil1U0sUU3L5DpYZFv kxedeqyoiTV4LAHaMCDn pI19nLSsLQtoFu1nd2Z7o688JPWf AXAepC27Aa8adFdbMKPvcYTMfD2d nbeoy4wzotpsGaPcPJDs SEp4DWj5TQQcgPumJlHoQKN0HyS2 KDN2gUNnsH7uaUseftfmgS9mLso+ CzbaLZPylfF3C0LaDbr5 QNValLlwMC8gqHHbVWkbXw9jfYec wXwdUX2cSJZpyofwNCCqhH9vTOXj kPIqqSnlBP8sUXJgnoxb m696MhIvSYQ9ZOOmuJSoX3UykA9l ZwKdPFHsUGHtV3SdeTHxJIprR140 UJfkUjT5TPUmaeYhD9Pz BQCawCsrCmI1u0D5Xu6DFG9YKKP5 I0UfDjy3WNSurLlhTS6lcTFiTAqe Zy3rxGdbdMjfKB7hQAAu hkhqZZCjqJ7uJYXvvQYzkBsfVF6w AHNoehwcv602WqGeKSP3ATGfnWNw L7FfuT6pJxSkMUHrNETg K5DbiKBpVRanK436DBceEtM2JHXj ziFrP9CtVERyuAyqMwL7r0N9Wd8T UDwvdGQ+MD39et30I8Zr TrpmWak9RXSpNMT2gUT6sF6fPPFa DZkcm6V0gUG6G9DlvwRdkp1he4vr PSAnPHhlB84tqTCui6D9 DGBqgWE7BLTcdHczEzIgzO68Sts+ RHCbzFiew3NeBxpot2vvs3hepZj5 IjMwJSIgdmFsaWduPSJ0 m2XeZq56Q37bTCgeKJZcNCHyFVZf NWCmqIgdjf2xxC7zPw9+PGNvbCB3 yBQ0mY3lBiEyZtL2SPet P461YqLndHOuWoocg9dyc9tmzSq3 ZmSlWJPxaaUtnRkiNRN6j4TrCc46 L2MtsRlrl9HnSuq8sd45 tBLux8I6yKA8L0ZtTNMojrdhgEYd yVblGN4rBAIratboCUBnzM8eRSRg W1f7WsBmXfU2FIdtC5Ze ruV6TAJyrSTgSTPzvSYPwL3xheuj f0dqnaacGeKzCPNmSUz1JXn6GPOw cOoyQeVyYQY2VkM9OZD5 mGSbmR4fcBrifmudjX8aCng+UGh5 m5qqnPZdTX7jfDR0ZB50WG51rYDc z5H5gCU9Y5MrTZSzaydi pamouTB8YSZyBHZflB29Fw0akYus Hx8cEXXbCRD6WKQdjBMmC0QdsQ8n DmUpCGAlMMYfD4BfoXDm DFfxX580BFqyOvP4GYVxxhJzE0Rj XNAncMlqNoV2g9Y6Zu0VXV41KH22 QZ40tTBbp5J3rIR1E3In OHTsvfhhasijuHC8ZAXpSZEwxD88 Ml1kpMqjSw5lYXFeJAA2JQTfiKYb X9YysR3oQyAoIQMyGACm B8UirREkQWdsI879PFznBoA5VSGt dqLnM0QyEXUsfBekMyY1r0G9Xh4R Xy19AG24BG08lEDmj8I7 jWV2J7SvUOFwwpzzzfzaaSR6DHHp NOVsvY54Qp0esPevRk2bUWIiFAD6 GPDlkGTyE8FssK4sNkCx DQDsHLLxI9XamHKzMOedC026DFnz WyV0WGQzcqBaD0QkXCMkiCigKtO3 n3M8Jp5DVCczahf4J1Lf PjwvdHI+SE60DXHsMF31lSKhmOHs y1bgnGk0SpJoXQIsZAX0wYgkCBck c2GyYVQaW39hdWGmn2L7 IGN (more content not included)... [facility] Rad - Other Radiology Report on 11-25-2023 Rad - Other Radiology Report [id number] [facility] C Urineon 11-12-2023 C Urine Urine Culture ordere d as a result of parameters set on specific urine dip and urine microsopic results. >100,000 cfu/ml Escherichia coli ORGANISM EC SUSCEPTIBILITY ORGANISM ID: 1 ANTIBIOTIC INTERPRETATION YOLANDA STATUS ORGANISM ECEC Amik S <=16 Verified Amox/Cla S <=8/4 Verified Amp R >16 Verified Amp/Sul I 16/8 Verified Azt S <=4 Verified Cefaz S <=2 Verified Cefep S <=8 Verified Cefo S <=2 Verified Ceftaz S <=1 Verified Ceftri S <=1 Verified Cefur S <=4 Verified Cipro S <=1 Verified Ertap S <=0.5 Verified Gent S <=2 Verified Imi S <=1 Verified Levo S <=2 Verified Nitro S <=32 Verified Pip/Asaf S <=16 Verified Tetra R >8 Verified Tobra S <=4 Verified Tri/Sulf R >2/38 Verified Normal [facility] 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: Performed By: #### 6 [id number] ####[facility] (DEFAULT)[address] [place] [id number] ED Clinical Summaryon 2023 ED Clinical Summary [facility] ? Urgent Care [address] [place] [address] Clinical Summary PERSON INFORMATION Name: FLAQUITA ROBERTSON Age: 68 Years Sex: FEMALE : 1955 MRN: Acct#: Visit Reason: UC - Dysuria; URINARY FREQUENCY/PAIN, FLANK/PELVIC PAIN Arrival: 11/10/2023 19:27:17 Discharge: 11/10/2023 20:35:00 LOS: 000 01:08 Check In: 11/10/2023 19:27:17 Checkout: 11/10/2023 20:35:00 Address: [address] [place] [address] PCP: NICOLE PETERS DO PROVIDER INFORMATION Provider Role Assigned Unassigned Ashlee RN, Lisbeth ED Nurse 11/10/2023 19:29:13 Patricio Moser PA-C ED PA 11/10/2023 19:36:31 VITALS INFORMATION Vital Sign Triage Latest Temperature Tympanic Temperature Temporal Artery Pulse Rate O2 Sat 98 % 98 % Respiratory Rate Blood Pressure /85 mmHg /85 mmHg MEDICAL INFORMATION Medications Given: Allergy Information: No known allergies PHYSICIAN DOCUMENTATION DISCHARGE INFORMATION: Discharge Disposition: Home Discharge Location: Home PATIENT EDUCATION INFORMATION Instructions: Urinary Tract Infection, Adult, Rppg-rx-[id number] Follow-Up: With: Address: When: NICOLE PETERS [address] [place], [place] [id number] Business (1) Within 3 to 5 days DIAGNOSIS: UTI (urinary tract infection) Patient Understands: Yes - Patient/family/caregiver verbalizes understanding of instructions given Comment: Normal [facility] ED Patient Summaryon 024 ED Patient Summary [facility] ? Urgent Care [address] [place] [address] PATIENT DISCHARGE INSTRUCTIONS Patient Information Name: FLAQUITA ROBERTSON Age: 68 Years Date of : 1955 Reason For Visit: UC - Dysuria; URINARY FREQUENCY/PAIN, FLANK/PELVIC PAIN Arrival Time: 11/10/2023 19:27:17 Primary Care Physician: NICOLE PETERS DO Attending Physician: Patricio Moser PA-C Comment: Patient Education With: Address: When: NICOLE PETERS [address] [place] [id number] Business (1) Within 3 to 5 days Urinary Tract Infection, Adult A urinary tract infection (UTI) is an infection of any part of the urinary tract. The urinary tract includes: ? The kidneys. ? The ureters. ? The bladder. ? The urethra. These organs make, store, and get rid of pee (urine) in the body. What are the causes? This infection is caused by germs (bacteria) in your genital area. These germs grow and cause swelling (inflammation) of your urinary tract. What increases the risk? The following factors may make you more likely to develop this condition: ? Using a small, thin tube (catheter) to drain pee. ? Not being able to control when you pee or poop (incontinence). ? Being female. If you are female, these things can increase the risk: ? Using these methods to prevent : ? A medicine that kills sperm (spermicide). ? A device that blocks sperm (diaphragm). ? Having low levels of a female hormone (estrogen). ? Being . You are more likely to develop this condition if: ? You have genes that add to your risk. ? You are sexually active. ? You take antibiotic medicines. ? You have trouble peeing because of: ? A prostate that is bigger than normal, if you are male. ? A blockage in the part of your body that drains pee from the bladder. ? A kidney stone. ? A nerve condition that affects your bladder. ? Not getting enough to drink. ? Not peeing often enough. ? You have other conditions, such as: ? Diabetes. ? A weak disease-fighting system (immune system). ? Sickle cell disease. ? Gout. ? Injury of the spine. What are the signs or symptoms? Symptoms of this condition include: ? Needing to pee right away. ? Peeing small amounts often. ? Pain or burning when peeing. ? Blood in the pee. ? Pee that smells bad or not like normal. ? Trouble peeing. ? Pee that is cloudy. ? Fluid coming from the vagina, if you are female. ? Pain in the belly or lower back. Other symptoms include: ? Vomiting. ? Not feeling hungry. ? Feeling mixed up (confused). This may be the first symptom in older adults. ? Being tired and grouchy (irritable). ? A fever. ? Watery poop (diarrhea). How is this treated? ? Taking antibiotic medicine. ? Taking other medicines. ? Drinking enough water. In some cases, you may need to see a specialist. Follow these instructions at home: Medicines ? Take odpl-wzo-qtzhxio and prescription medicines only as told by your doctor. ? If you were prescribed an antibiotic medicine, take it as told by your doctor. Do not stop taking it even if you start to feel better. General instructions ? Make sure you: ? Pee until your bladder is empty. ? Do not hold pee for a long time. ? Empty your bladder after sex. ? Wipe from front to back after peeing or pooping if you are a female. Use each tissue one time when you wipe. ? Drink enough fluid to keep your pee pale yellow. ? Keep all follow-up visits. Contact a doctor if: ? You do not get better after 1?2 days. ? Your symptoms go away and then come back. Get help right away if: ? You have very bad back pain. ? You have very bad pain in your lower belly. ? You have a fever. ? You have chills. ? You feeling like you will vomit or you vomit. Summary ? A urinary tract infection (UTI) is an infection of any part of the urinary tract. ? This condition is caused by germs in your genital area. ? There are many risk factors for a UTI. ? Treatment includes antibiotic medicines. ? Drink enough fluid to keep your pee pale yellow. This information is not intended to replace advice given to you by your health care provider. Make sure you discuss any questions you have with your health care provider. Document Revised: 11/22/2020 Document Reviewed: 11/22/2020 [employer] Patient Education ? 2022 [employer] Medication Information: The exam and treatment you received today in the [facility] Emergency Department were for an urgent problem and are not intended as complete care. It is important for you to follow up with a doctor, nurse practitioner, or physician?s physician assistant primary care for ongoing care. If your symptoms become worse or you do not improve as expected and you are unable to reach your usual health care provider, you should return to the Emergency Depa (more content not included)... Normal [facility] UA [id number] 11-10-2023 UA Bacteria 1+ [facility] 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: Order Comment: Urina lysis Microscopic order added on by [employer] Rules system. Performed By: #### 6 [id number], [id number] ####[facility] (DEFAULT)[address] [place] [address] UA Mucous 1+ [facility] 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: Order Comment: Urina lysis Microscopic order added on by [employer] Rules system. Performed By: #### 6 [id number], [id number] ####[facility] (DEFAULT)[address] [place] [address] UA RBC >100 [facility] 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: Order Comment: Urina lysis Microscopic order added on by [employer] Rules system. Performed By: #### 6 [id number], [id number] ####[facility] (DEFAULT)[address] [place] [address] UA Squam Epi Few [facility] 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: Order Comment: Urina lysis Microscopic order added on by [employer] Rules system. Performed By: #### 6 [id number], [id number], [id number] ####[facility] (DEFAULT)[address] [place] [address] 04091 UA WBC >100 [facility] 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: Order Comment: Urina lysis Microscopic order added on by [employer] Rules system. Performed By: #### 6 [id number], [id number], [id number] ####[facility] (DEFAULT)[address] [place] [address] UA w Culture if Ind Standard on 11-10-2023 Breakpoint UA [facility] 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: Performed By: #### 6 [id number], [id number] ####[facility] (DEFAULT)[address] [place] [address] Color (U) Yellow [facility] 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: Performed By: #### 6 [id number], [id number], [id number] ####[facility] (DEFAULT)[address] [place] [address] Culture? Indicated Invalid Interpretation Code [facility] 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: Result Comment: Resu lt created by rule GL_MAGR_ADD_UA_CULT Result created by rule GL_MAGR_ADD_UA_CULT Result created by rule GL_MAGR_ADD_UA_CULT Performed By: #### 6 [id number], [id number], [id number] ####[facility] (DEFAULT)[address] [place] [address] Glucose (U) [Mass/Vol] Negative [facility] 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: Performed By: #### 6 [id number], [id number], [id number] ####[facility] (DEFAULT)[address] [place] [address]254 Ketones Ql (U) 15 [facility] 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: Performed By: #### 6 [id number], [id number], [id number] ####[facility] (DEFAULT)[address] [place] [address] Micro? Indicated Invalid Interpretation Code [facility] 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: Result Comment: Resu lt created by rule GL_MAGR_ADD_UA_MICRO Performed By: #### 6 [id number], [id number], [id number] ####[facility] (DEFAULT)[address] [place] [address]24 UA Bilirubin Negative [facility] 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: Performed By: #### 6 [id number], [id number], [id number] ####[facility] (DEFAULT)[address] [place] [address] UA Blood LARGE Abnormal NEGATIVE [facility] 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: Performed By: #### 6 [id number], [id number] ####[facility] (DEFAULT)[address] [place] [address]687 UA Clarity CLOUDY Abnormal CLEAR [facility] 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: Performed By: #### 6 [id number], [id number], [id number] ####[facility] (DEFAULT)[address] [place] [address]109 UA Leuk Est MODERATE Abnormal NEGATIVE [facility] 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: Performed By: #### 6 [id number], [id number], [id number] ####[facility] (DEFAULT)[address] [place] [address]7737 UA Nitrite Positive Abnormal NEGATIVE [facility] 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: Performed By: #### 6 [id number], [id number], [id number] ####[facility] (DEFAULT)[address] [place] [address] 99825 UA pH 6.0 Normal 5-8 [facility] 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: Performed By: #### 6 [id number], [id number], [id number] ####[facility] (DEFAULT)[address] [place] [address]377 UA Protein 100 Abnormal NEGATIVE [facility] 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: Performed By: #### 6 [id number], [id number], [id number] ####[facility] (DEFAULT)[address] [place] [address] 60862 UA Spec Grav >=1.030 Normal 1.001-1.[address] [place] [address] 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: Performed By: #### 6 [id number], [id number], [id number] ####[facility] (DEFAULT)[address] [place] [address] 24346 UA Urobilinogen 0.2 mg/dL Normal 0.2-1.0 [facility] 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: Performed By: #### 6 [id number], [id number], [id number] ####[facility] (DEFAULT)[address] [place] [address] Urine Source Clean Catch Normal [facility] 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: Performed By: #### [id number] ####[facility] (DEFAULT)[address] [place] [address] Urgent Care Note- Provideron 11-10-2023 Urgent Care Note- Provider Patient: FLAQUITA ROBERTSON Age: 68 years Sex: FEMALE : 1955 Associated Diagnoses: UTI (urinary tract infection) Author: Patricio Moser PA-C History of Present Illness This is a 68-year-old who presents to the urgent care with concerns of a possible urinary tract infection. She states she will get these on occasion. This reminds her of other episodes of this. She admits to increased urinary frequency, dysuria, urgency and sensation of incomplete emptying x 4 days. No fevers, chills or malaise. No chest pains or shortness of breath. No cough. No nausea, vomiting. There is mild right lower back pain today. No abdominal pain. No skin rashes or lesions. No vaginal discharge or bleeding. There are no other associated symptoms. Nothing makes the symptoms better or worse. Symptoms are described as gradual onset, moderate in nature and persisting. Health Status Allergies: Allergic Reactions (Selected) No known allergies. Medications: (Selected) Prescriptions Prescribed Hydrocort cream 2.5% topical: 1 keshia, TOP, TID, PRN: rash, 60 gm, 3 Refill(s) LORazepam 0.5 mg oral tablet: 0.5 mg = 1 tab(s), PO, BID, PRN: as needed for anxiety, 60 tab(s), 0 Refill(s) Lunesta 3 mg oral tablet: 3 mg = 1 tab(s), PO, Once a day (at bedtime), for 30 day(s), PRN: for insomnia, 30 tab(s), 0 Refill(s) Lunesta 3 mg oral tablet: 3 mg = 1 tab(s), PO, Once a day (at bedtime), for 30 day(s), PRN: for insomnia, 30 tab(s), 0 Refill(s) azelastine 137 mcg/inh (0.1%) nasal spray: 2 spray(s), Nasal, BID, 1 EA, 5 Refill(s) venlafaxine 150 mg oral capsule, extended release: 1 cap(s), Oral, Daily, 90 cap(s), 1 Refill(s) Documented Medications Documented Calcium 500+D: 1 tab(s), PO, TID, 0 Refill(s) Varios OTC supplements: PO, Daily, 0 Refill(s) ZyrTEC 10 mg oral tablet: 10 mg = 1 tab(s), PO, Daily, PRN: for allergy symptoms, 10 tab(s), 0 Refill(s) eptinezumab-jjmr 100 mg/mL intravenous solution: 0 Refill(s). Past Medical/ Family/ Social History Medical history: Resolved Asthma, extrinsic ([id number]): Resolved. Osteoporosis (628000386): Resolved. Fibroid, uterine ([id number]): Resolved. Abnormal weight gain (879504670): Resolved. Viral wart on right thumb (9114921298): Resolved. Sternoclavicular joint strain (848.41): Resolved. Migraine (71396549): Resolved. (986119678): Resolved. (836662707): Resolved. Acute maxillary sinusitis (108849106): Resolved. 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 Rectal bleeding (575709145): Resolved. Iron deficiency (26809353): Resolved. Antral gastritis (3898444): Resolved. Esophagitis, reflux (654566735): Resolved. Hemorrhoids (968674614): Resolved.. Surgical history: MRI of brain ([id number]) on 06/02/2021 at 65 Years. Colonoscopy ([id number]) on 04/07/2021 at 65 Years. EGD - Esophagogastroduodenoscopy ([id number]) on 04/07/2021 at 65 Years. Removal of mole of skin by excision ([id number]) in the month of 11/2020 at 65 Years. Excision of skin carcinoma ([id number]) in the month of 03/2020 at 64 Years. Mammogram - screening ([id number]) on 02/08/2020 at 64 Years. Bone density scan ([id number]) on 05/30/2018 at 62 Years. Comments: 06/02/2018 15:04 Angélica Cole LPN report scanned Mammogram - screening ([id number]) on 01/14/2018 at 62 Years. Comments: 01/17/2018 15:38 Angélica Mcrae LPN WNL Colonoscopy ([id number]) on 06/08/2017 at 61 Years. Comments: 06/10/2017 8:23 Angélica Cole LPN normal Bone density scan ([id number]) on 12/10/2015 at 60 Years. Comments: 01/14/2016 7:45 EDT - Allegra Rosado Osteopenia Colonoscopy ([id number]) on 06/01/2011 at 55 Years. Comments: 08/13/2015 12:16 EDT - Miguelina Patel normal Cardiac catheterization ([id number]) in 2007 at 52 Years. Colonoscopy ([id number]) in 2006 at 51 Years. Appendectomy ([id number]) in 1978 at 23 Years. Total hysterectomy ([id number]).. Family history: Primary malignant neoplasm of colon Father Grandparent Diabetes mellitus type 2 Father Osteoporosis Mother Depression Mother CVA - Cerebrovascular accident Grandparent Coronary artery disease Father Alzheimer disease Grandparent Dementia.... Mother Hypertension.... Mother . 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 [facility] [address] Urgent Care Record [facility] ? Urgent Care [address] [place] [address] PATIENT DISCHARGE INSTRUCTIONS Patient Information Name: FLAQUITA ROBERTSON Age: 68 Years Date of : 1955 Reason For Visit: UC - Dysuria; URINARY FREQUENCY/PAIN, FLANK/PELVIC PAIN Arrival Time: 11/10/2023 19:27:17 Primary Care Physician: NICOLE PETERS DO Attending Physician: Patricio Moser PA-C Comment: Visit Diagnosis: Diagnoses This Visit UC - Dysuria ([id number]) UTI (urinary tract infection) (N39.0) If you received any narcotics, sedation, or any other medication that causes drowsiness for the next 24 hours, unless otherwise directed: ? Do not drive a car. ? Do not operate machinery such as power tools, lawn mowers, drills, sewing machines, or stoves ? Avoid alcoholic beverages and drugs for allergies, nerves, or sleep ? Do not make important personal or business decisions or sign any legal documents With: Address: When: NICOLE PETERS [address] [place] [id number] Business (1) Within 3 to 5 days Medication Information: The exam and treatment you received today in the [facility] were for an urgent problem and are not intended as complete care. It is important for you to follow up with a doctor, nurse practitioner, or physician?s physician assistant primary care for ongoing care. If your symptoms become worse or you do not improve as expected and you are unable to reach your usual health care provider, you should return to the Emergency Department, we are available 24 hours a day. For those patients who have received Radiology results, the interpretation of your X-ray as given to you by our Urgent Care physician is only a preliminary report. The Radiologist will review your films and if there is a change in the diagnosis you will be notified by phone. Please make sure you have provided a working phone number so we can reach you if necessary. In the event that you had a lab culture while you were a patient in the Urgent Care, you will be notified by phone if there is a need to change your antibiotic. Please make sure you have provided a working phone number so we can reach you if necessary. [facility] has provided you with a complete list of medications post discharge. Please inform your commissions analyst/provider of your visit and for further instruction on these medications. Any specific questions regarding your chronic medications and dosages should be discussed with your primary care physician(s) and/or pharmacist. New Medications [id number], [address] [place] [id number], [phone] nitrofurantoin (Macrobid 100 mg oral capsule) 1 cap(s) Oral (given by mouth) 2 times per day for 7 Days. Refills: 0. phenazopyridine (Pyridium 200 mg oral tablet) 1 tab(s) Oral (given by mouth) 3 times per day for 2 Days. Refills: 0. Medications to Continue That Have Not Changed Other Medications azelastine nasal (azelastine 137 mcg/inh (0.1%) nasal spray) 2 spray(s) Nasal 2 times per day. Refills: 5. calcium-vitamin D (Calcium 500+D) 1 tab(s) Oral (given by mouth) 3 times per day. eptinezumab (eptinezumab-jjmr 100 mg/mL intravenous solution) eszopiclone (Lunesta 3 mg oral tablet) 1 tab(s) Oral (given by mouth) once a day (at bedtime) as needed for insomnia for 30 Days. Refills: 0. hydrocortisone topical (Hydrocort cream 2.5% topical) 1 keshia Topical (on the skin) 3 times per day as needed rash. Refills: 3. LORazepam (LORazepam 0.5 mg oral tablet) 1 tab(s) Oral (given by mouth) 2 times per day as needed as needed for anxiety. Refills: 0. meloxicam (meloxicam 15 mg oral tablet) 1 tab(s) Oral (given by mouth) every day. Template Non-Formulary (Varios OTC supplements) Oral (given by mouth) every day. venlafaxine (venlafaxine 150 mg oral capsule, extended release) 1 cap(s) Oral (given by mouth) every day. Refills: 1. Visit Information Allergies: Substance Reaction Symptoms Type Comments No known allergies Drug Vital Signs: Vitals and Measurements this Visit (last charted value for your 11/10/2023 visit) Vital Signs This Visit Temperature Oral: 36.8 DegC Peripheral Pulse Rate: 83 bpm Respiratory Rate: 18 br/min Systolic Blood Pressure: 137 mmHg Diastolic Blood Pressure: 85 mmHg SpO2: 98 % Oxygen Therapy: Room air Blood Pressure Method: Automatic Measurements This Visit Height/Length Measured: 152.4 cm Weight Measured: 74.84 kg Weight Dosin.840 kg Body Mass Index: 32.22 kg/m2 BSA Measured: 1.78 m2 Problems List: Problem Onset Comments Actinic keratoses Adult general medical examination Ankle pain Anxiety Cognitive dysfunction Depression Diverticulosis of colon Flexor Tenosynovitis Of Thumb Gastroesophageal reflux Insomnia Long COVID Migraine Osteopenia Rhinitis Right carpal tunnel syndrome Seborrheic keratoses Sleep apnea Patient Education (more content not included)... [facility] Coding Summaryon 09-30-2023 Coding Summary HTMLBase 64 QyapefkqCMe1oTz+PGhlYWQ+PE1F RAFtC20phRNghF4eD4PIACpORanm IOBCVLnKVyVlsoYnCL8jtCGoRCBj IC8+MZ1bQPEeCeyuhAWyp8U2gZL8 I85rwh0oTKsypAT9DVTmTpWgzfqe b8orsHc5XVdpAlvaGdMy JJPtoA16BOB7sP19Mp04zCYinZLy w6jpxEr1NqFzZNJfCPH1kRqrPLmp e4IrTGPcD95vjNYjk4P7 PGWriXilhICxGnOrrLJ2fS7sPCjh jjqni1vntqxtSxg1ob65bMCjg1G9 lTV3N4EryrX1AYIaaFZf VbsidFRUvT1zidwic4mnybsgOdMd QGKfPVd5FRx4JSDvsYhkJlKdWO25 OAO4MOBpknZwU1LvNWDs gEfoZrS2o6W0Ao4FO0RXZtnfY3FY TUFSWTwvdGQ+FN14pk60F1DaXakz Zhm7OCAtGAM2qOM7gI3j HBSgRVxxo9Y8qIR6P5ZwnxPvju7b f6ytLTIwKHziW77ziPPte1Q0EFRo iFE4EOOovKjrVwKcbB24 Oyc+JHShvAnwe1CxCqzeb4wbi8yp jHq6XpjdCXNipyThvAxiEUW2t3Ze Pl8qGLCwfKJ2fSD1bF0y QlNkJrV6QXdzX966RrSsaEVfUlzu D57yD1FvoXX+ABJoDhm1TPJdqSdh TY7kQ4OvXPJxqekfaRZa lMtvYC9pWQQrqzkfUJYggU6lQLCt D8a2ApIdWeU7JKohK2LoRVLahtmb Pv87nH2oMoJoZrI4HVbn Q7NmnaE1LOQxtDByIWtxDUM6X80a l9D2ZVYvSIFhGCW1cKP2oZ5mdWjc bjogbGVmdDsgdmVydGlj EZeiICdxP444DJDxyOzkMeCkAWez ZyBEYXRlOiAgMDYvMDYvMjAyNDwv dGQ+CKUrXBU5xMukXQWr bWLkCDloLn4ooEfhnNcoKV9eVIKc fjqlVKZttY8cNAUnlSNkdAhqRN5e HWRbfajde406KzSlINK4 SKUkbJKqE3VrrC3zHuPoSAHxEVSb A9XnmCKiRUgyN411CTumNrD3OXMf waZaH6CqGQXnwZndSiQ0 o1G1Py2Nw3BmpbbmJ6GxiNMcTjSe QuwoGMl3G7FtFvcamOP+KP08EXLk FB06DRv2NKT6fCfnPZin ATLmX9JtaS3pFoJfNNBgAIHrMyo+ PHRhYmxlIHdpZHRoPScxMDAlJyBz rQgvPO8lHa9aACUqDAWq hJdwcNNoFeXlp9faNENfEVinVJ7s ePfkK9XynUB8QQSot8q8Sf49Z40a N6CesNW+SJFloGW3cXD6 rV3ePhPaBzC3OWofZ883YnNosTUy Agswa3vst7ypbPp4ChK5WQZctoHx kMiwYVH1q0QlXz95U77x NPhsSGPhCFHtXIAtVYZuzGordf3g sQ5bNh4+VKJaoCS2oKP4jR8mHdLg RtO2QTnfD467GiVjeSGo Zwije1joz2uehTl7TwBzYLNlowEy ePwmUFI0s0OoPs81Y3EzeCygy5Iu Hzz3jr66jQMwr5S5iEX2 Q6GmHNOaqskowTSflXzhOO4kDYGn tgikUAKukO1jNTIbU1j8XmNqBaJ1 LXgiW7SfbwM3KWZbsYHg JRAgwEJGrJ5jgaitf8bouplzPzMv DJKxIJc5BNz0SRZpiXefLgJwWFD8 DhI6MVA1rLEbcE9uzHei oqencI6kAfl+KWH2mTSjoIUUXW4w OjwvdGQ+JSNaHBT0yFkkCJrbOPMc kP3tOIGcG7l9OmQuNjV6 UBytZ6VellB1IOFqhJFcCZHmzURL eR6uvhcna3rnllneCeHtSJMvZOe0 XPn5RBPhnXfsYyTwSCX7 RkE3NWY8eZZkwD6iaZgyxvsgsI5t Oyc+AruhaTplSDT8JYf6U1EkDmv4 SEXqfYnaLA8cpUSfVEkx Yr3abRkrkJrvXQ8dWMVfgvaub417 RuMnz4rgEZBysYYhBGqrQSL2C38n h7W3ACRrJRYuASM5pCW9 eR5uiItrosayfIWziPljukPawWvx ERpxPLutO550QBYgvZfhNnXmYNd0 I5KeWvu5PQVemOftDD7s bCPgTSxuVr5lrCcbgWkoHN9xHZWv gvyph353DtUah0lsYLAwqFLlMZjv XNN8H33cc7X6ERKaXGTh ALN9bIV4bR9biVvlsqkbvEEuqKom ozPpfPemQSvrDQhdE810ABBgeXsb QdVqjWs1V3TmHoa3PBFe vGezBM9miZMqEZxaAx8fzCnsjEax ZP2nCKDkfhjix203JqPxu4hbXPCk pVZwSMhgHYB2F22xn1E1 KBHlEBCuVYS7eJJ0fN6ivHcvddiu qAKeuYmpzkCzcNrcKFwiMEbkI418 IHRvcDsnPlBhdGllbnQg TDgcYFd7H3AcDzxfoNL+ZW08VRRi FR16iDShlRVat8jnaGq6SpEjNUMt SRK1jEyqNEmej4OhCROo G36aqMJqx1S5IVQzxCureASzTqJh xEA8aH1lDRsvstfsb5coknqqPgjp r7gmic33zH98Z75jGUel AQTlWLUwSLZqIZPgrMmubm8jwW1t Ii8+XSOihEW0xGA2sG3aYEScTfR6 XTltW878ElGvxPMcHiqn d8ijb1mvkTs8BeT4UHFbfcIyxBmi HIJ2m9BoUo07P34eARhdRMXiDOCv UNWmOLRccJltht6kiS9k Ii8+XXKnsKC6yUX5lX1jCyCiZxE5 RUydJ685BoQrcVNzAobvZ01oM4Sz dXA+BPZvNfo9GFWqgAaq IB6hnMJoFPqrUx4oZFJ0ZmVtNmIl BXxoY6KyTRPejzuylanjtZV4JFMj NJKgwN81Il6ysNabKDRq xVQFvX9eempnb7wmeqhiMbSxIFTw CAc9HGm4CKHlmRgjJmLtGYD9WsJ3 OZA8lIIekS3pzJhimfmt qT8eG5JkPLFuqjhzTx69yI6yPlWt WfZ9JAelSmk+E7ARW9zQWZMKVPsJ IYRJUc22K8RgMld0ZPVd kNkhAM6ewHXbTTxoOg2ebJcxjBrx DZ4pLQIanpfeXCMqvE6uVVKcjBCm uGmaZR7yPNOdpgfzr543 AbMtCFT5VGClrDQkY1RygE5eWtKs VXPpGXEvO9PncFZuECvtX248RNwv ErQ4EOVgohLtT3XnNMIw pGzzJpI2s1N7Cg3iZM6xQP9nQOM0 TZ27EM52gIIch6S8uKH6U4ZzTRIs ckfopxsbpAM8DVFoHNKf iC20eOWcZEppWf5in0H2q526VTOw GANorB68Ep2yqJaqEXHsbYVTsO9e eiehj3bzvlhvQqIoSADf ZVi0SJq2RXBhuNeyLgUuSMD6JaB7 PTW0qWEvaK8fbYsxvirjkD8wVqi+ QuuiMVHdzmT1V5UrBwq2 XLGstAimSN6luQSwEAbvSm3rxEtw kThxFL0kBXBthoecKZYheZ3pMWQd zRPmdAyfYO6bUFKvubge c194PdSsVVP0YELseZDhG4MpfC7o OkFqZEXvKVRbQ9AunAVwBFhxE525 BPikNkP8RMVxlgNaF5Cu HWYxuGkhUuT5y3U4Zw9MTS5AIVF2 J2HkRhq6LJHmtSkvYW9jnYDpXWud Rh0zrYowyHcnYY3uDJWd mhmbCORguN0hWYEwnOKmxOraMD1b SUPxaapid641SfFeYGP2RDWpbRSd B6RwvT9mQbMnCLEfESLn T3HciDRrWZuqE990AWidGqP4LJIu qpVjV5WpFFAkeFipGmC8q3R8Uh8B UDwvdGQ+LA67zq75K5Dr RcwoQwf1BFVpXUE2bKF2pX2lEOEy DBwom8J3gPQ5X8EpqkFgnz8du0cd GDIbSMbnH32eoNLrt6T9 XPBjkSG1BLYnpZhcJxVxuL22Bqp+ DRXehMusr5StOvncf3axv1yxbSl3 IjMwJSIgdmFsaWduPSJ0 p4NrSh74G60qNTvwWUJxHYIaAMQo FEUtuAdako0sdG7tVi7+PGNvbCB3 zHH3wV5lNaZlEeG0OMgp H087TeUbgHZoHsseq3xlg5zwxBs0 MfFsULIvndKqkNdnCPX1p3DeDd72 Z9PvvBtjb8JdQcu7rm53 fLSnm9H2lXS1S0SuHVNmnnvggTMp jGciQC5qPYGzaequNPDdeA5kBXMm V4k9KoFpGgJ8ABbsJ0Lo ikT2VOMruIRyGAHmzVCPgU3doyrj o1dmisnzXwHrLQOkGKt7GXn7VJRe oKshKmGbCHZ2JdJ2WEC1 uBTkrJ1lhJldqhjgqH7cPlz+UGh5 f3bbhNWoBG4poNQ1YB52GX48dEIv u6C2kOF3K9YtORMbpznl givkuFD5YNFnCKTauW09Ed8esQzp Bh5bFNDtIDH5XQFylMXvJ3DocC0p MbOoUBWmXOFtA9YfoZFd FNolB564WIoqAkY4OPSjpxUkP4Te CWVqgPdrAeC1a6K2Xn4SCJ65KF17 ZJ64dWLpx0H8tZF2Z9Ys NTYanzvjycvmyPZ8BEYoWXHbhE97 Bu0lcZkgWv8cQJQzALP4ZZLvaPHr D5YkeI4jLuZxOWUjRJVx N4DyrFNcHCrfD940YLdvLxP9DMTf gjSbT8VbKGJzaNzfIcB7h7V3Wf4M Dj86PB74OP28xSQgn9X6 wGL8L2BjYWUwvizeephiyTT3BWZf ZMAzyW23Hs5nfRjsMg8aEBLxGNH1 MWHraZUeT2OzpR4yVvNy CWIhJHWfE7ZizZSyAEutM322CHoj QoF1HAJepkIuR1HuVWReiNafNaV5 c9Q7Um3ACJjeygn9N0Tv PjwvdHI+MD81ZOXdDP59oMZksZIg u9jtpPb1NtKuDHGnEKL9pWyyLVxa h4AiUXTaI60doOVsi3D7 IGN (more content not included)... [facility] Reminder Messageson 09-28-19 24 Reminder Messages - From: NICOLE PETERS DO To: [facility] Clinical Pool ([facility]); Sent: 09/27/2023 14:04:18 EDT ! Show up: 09/27/2023 14:04:18 EDT Subject: Results Follow Up Actions: Call the patient with result(s) Due Date/Time: 09/28/2023 14:04:00 EDT Reminder Comments: looks good ...not gout Results: Date Result Name Value Ref Range 09/27/2023 11:20 Uric Acid 5.1 mg/dL (2.6 - 8.0) pt notified of results [facility] Uric Acidon 09-27-2023 Urate [Mass/Vol] 5.1 mg/dL Normal 2.6-8.0 [facility] 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: Performed By: #### [id number] ####[facility] (DEFAULT)[address] [place] [address] Documentationon 08-25-2023 Documentation [id number] Ling Robertson 1955 F Date Provider Department Center 08/25/2023 JuanjoseCRISTÓBAL [facility] Anthony Heal No family history on file [facility] Controlled Substances Agreem entson 06-29-2023 Controlled Substances Agreements [id number] [facility] Coding Summaryon 05-11-2023 Coding Summary HTMLBase 64 UotinzdcCAx3dEw+PGhlYWQ+PE1F PDJaA41baEKvwV0aS1XEFRxLHmgy UUVMDBnSOmQxbuAoFC1naPXxGQQe IC8+NP1yLWIfJyjpcZSrk2D5bAT6 T11uge4zZIdggCZ6OEYuTsMrgqio t0duqWx7APopTpiiEfTw ZSOjsU16ZNG1vG10Rs68qDOaiZUb o4ipgGt8BfNjAHOpINH6tAktZFco l3WwKBTgB04uoFGnr5E7 DUEyhZoenDVxYbXqpAY6eE0iYWle sqatv7cyojbkOns3lz20cXNux0X2 lJB0H2XptvO1AWDypVQn MnbvaITFvF2gibzwi6nafazdRjYu PKDwTQw0SCr5MEMknHwlZlIaQE20 EHJ8ANHonhGjH8PrVEPg yCetUnY3r2B5Cc9CO5HQJyfsC6BM TUFSWTwvdGQ+FC26ao34O6ScVjcw Maj6CXHxKQE7iSG7vO8k GMTdSOwey8D7zAU6K0TcjwXcgs8a j9zsKPVeWBsoG82jnNDzj0I3UZRc gQK7TDAxmTuyWqMccJ18 Oyc+WCCjjZyor7DgAoqix7ubx1nn bGa8LcnwXOYtmrOkxRxuPOJ0c0Mv Rz8sNOVaiIK6oLU0uD6v NdWaLdP8EXvyN541KqYhxVNlDkzr Q33rN4QnlMX+DAUmDua8GAWlyOgx AL3kC3RwZQBlcrgvfDHw fSmsES5wBTCpxinaNITgnD4bWOWt I7p0CkOxQcA9JJgzF9VdWJRtmnkt Nd67pP9mEeSeMrF2HVyv G7FvalT6ALQefWXuJDzgRDA1T19p q7K2JCSdXQLtGSA8yRG9dQ8zpSor bjogbGVmdDsgdmVydGlj PYwyWMqeT465ZVHkiOcmMrWwBPjn ZyBEYXRlOiAgMDEvMTYvMjAyNDwv dGQ+RBGvWOH3lWpjWAUt mUDuCRirCu8qhEoobDknLM7fCNSd siinUODihA0uEZOdpOFbwZcsCX5y BUHnamfgm838VpUjEIM0 NTQyfAKrI4MfjX5dKlRaUSLsHUQy W3JxuNUmRYeoQ114ATmwCmJ2SMCt afGcH3VsKXJucXkbWeF8 q1U4Dp0It6UxrtmoW1SrfASaHuTs OssaSBc0W8DoXjlopLY+TV09DUOy UM60VCj5RLG5pTysPEmt PHInD3PunK1sWdKkUFDtHKOoRvl+ PHRhYmxlIHdpZHRoPScxMDAlJyBz hPtzPM1ePr5yOHXeXRHo bAaqvBSqCaQcb5geKTKoALqlGA8c rJopJ5YgnDN0XIWkt3f5In22N08q R6IerEV+UKHmgPW9tJX2 vS1oQjMdHcW6SBbnC228SoEeeGQg Vgbno4ebp4lnnNh6NqG6EYCtwuVj lZbpMFR8h6ReRk39M49a TJksLICiPMApSTFmYBUyyXjjvg3t aG3bIj6+SMZfdMO7tLA8nL7jPlBy WcZ5ZJiiU153AlAebBEe Azxmq0tnr9gxlGt1CnCdSEIvftIi rLhrHUP4e8BpNg78J7NvlNxvu5Sn Gbx3ij39oTNjj3C9vWB6 J6RzDZIvldiqhHGktNokJK7cCAMq ftqwOPLomQ9hYYZuW4k0QpNlNzE5 IDneQ5NdalA1JYJdyIMe KLUfkQJMlI1gdwhit5bbtpwnMgAl QEDgJIo0MCm3LAYfhHcuZsGfOGM8 MbD3RJI8pTBlgM4ohPen vltldB9oRrq+OTK5wGZevWUBLI5r OjwvdGQ+KOFbGMV7qWriHVaqFRJu xT8uGABqS9r2SfGsRgW7 WPloE0JsxiB0YHAvrCPhLBMikOZD mL4skdzme3blmtndPpWvGKCvFRa5 FVr4VRLqaBdkQvLnXIV5 XsT1RXN6sJQrnC8faIwvhpkpnN8u Oyc+NsogmYizQHP6DHg8Y3QfSui2 WUPxpXtsAG3xjZZcNMnh Gv3beOaseXwkIY5kYOTskqbft818 QhKkz9myUJAgoUHlLUwhFFA5X64z t1T0FAWcWWOySZA0zFB2 iK3ksSmidpnkiHHvcHqhjtEivXat IChkZDgbJ747NHMioXqnGqKfKGh4 S3JaNco3UWRthGomPQ4h zOGtPPuuQr9ilNblmOglUY3rCKLq qpgzp899YmYha9gdJSUyqYBpIEtb QEM4R21jk9X5KRCyFADy WJQ4vUG2rM3snCianvvuiOKttVht crBunNfxLPfeYRhnI545EJNthCgw ZrGpxRp9K0OcMtd6ZYQp lNvjOW6naOYjMIrrBi8ciOoxfMxt OR9gQIOhfofhk086WdUtf6znEPEc wIRmHFiiBRW2S34wj4Z4 XLRvEEDwDQU3iKQ6qF2yvKkqlryt sDIdvBoxguLarXimOWrvZUsaT153 IHRvcDsnPlBhdGllbnQg HZriGIs3K0AgFmtdmSK+OU82YKXz TX97lAFadCBmi8eqkVy6RcChQZPr MON0bTacYIjki3FhQQMy H36fkYEdi3L0MRShoIizdDZpTxJd zUO4mX2gCOycxfqsi9chqqoaDtgh c8vlsk85oN14Y25cXGxn YPKkYGByQEGvQOZyxKtffy1wxW0k Ii8+SZKavHC1tRX7aZ4iFGScSyL1 ABfbG447MzRhrUByXdoa s8ixp5idhVl3OqJ2QDJzcvJguPej IGV9o9EdPn09U86gMWriMKOoLJQe EPKuKLKeiBzqxi4rfV1z Ii8+PIQqqKV3kON6wF3qIkHoDvC7 UCbiY644UkYxaKFqYmmbE89aF8Un dXA+TJRxDjh2DVWxmGrw CB1yuXIkMXtdWq0lLHG0RdGhMqWh UUwgW3MyYBHurexpjfdtsZE6BGMu WQBanP04Ar2tlTliONXj sZGRjP0rslkju3jhnjkwDzFoCVBk WBz4ZSd1LLKxeFdzAfHkMDL8LnL7 GUD7tLGgbJ1gxQnyaatg uP2sB3PwIMDyytvpRj71hI0yBsSu FjZ2BHamYrv+N9MCX1hEZKBTCXqD SUBTKn47A6PfGwx0MJUw dEceHN3bqSQjNHfrSs5cdJpvfWco SE0qLZHyssmzSTQnrQ0rWUNmkVQe eCnxTO9wJDWhqdqwj665 TuXfEAS6UMMnyNIzO3HazC9yKaLb MHFeSFFoJ1OhkHSlFNxcZ952YYpf QoS0FSSvlyTjP9ThOQPv mPwdSjL0y8N2Gx7kHM0sRS1pWAI6 MB32SL62vLWlf0N1jZA6Y1DjOHCv vmewxmiumDH8INHcSMGt dM44fMFwRQwjXf9qg4M3e816ZKFi IXHyzH09Bb2fcZcvVGKwcANZaI0l raohe2vqcjbiKiJbTZRq NQg8KXg9TTOmaSdoRlIaYTD2MrR5 OWP5gIVngV6qhBcvjymvnD4oJdx+ WmeaAQMffmM6D0WhElc0 PASxuKkdMR9gbPQnVNrnXp4hcVfs gYmvRJ8hEUFgcokxOQAepH8xAGPe hXNmpVkgZF8zRGZeqbti o412UlUzPWU3GVZdyVEzH3DvaY8a AaCgSUUnRPAzT3MmaVFqFCgcE792 DCbePzB8QIOvnpPrF7Zs CNLwpNxiAeJ1z0O2Yw4CHH1BMOH9 H9GzSlv7LVOikKiqIQ5ghDXoMMnz Cc8xkJxwmIsrQA3jZOYd ksunAZMtdR4qLGBkmDPgmGuzOJ2v VSYnvszkw751DtPrFSW6XAKcwHSz S6YjbL3rNdDwQWJgQQFf Z5NxfWNwLAgaJ350JOalRnX9WRLz ufWdI9BgXOZpaLqxZfU9p0Q9Xz3J UDwvdGQ+AK87ta05G1Zv YuaxDse0GKPsGUB0tJI8wM7iVMSh RArgt7M8dEY6V9LwzfUdlj3ro6ak GYWxRQbqR44vjRRrd2H9 SLQudQT2GYIgtUvgEdBxbY93Kzb+ AEIphUjuz2CuByfro8uex6qyvTk1 IjMwJSIgdmFsaWduPSJ0 q8FbOy55C42uSFqpQRTnQIToVKQk QWWobAeomq2nwU9rXn7+PGNvbCB3 aBC9uN3jKdLnEeE3RVmv B042ImRxkDGhVqpry8nrb9vvzZx7 TrOpRNTocoMimBmpQDU6c3MfKk75 A2EzyQget2IbQbj9vg88 rIXex9U9pFM3Y1NgJRQnnkvnqPUe xFqcWR6vENWejibxBEFulQ2fTSMs G4p8JfCkRfQ1NNuwU9Nv dzP3WPFrhCZwDHVtuLCWqL0jiyew b6jwincrOeOjQJJeHFa3OLd8BKEh iHsfJbXnPXE0MzY6BMU2 kIHhcB6wtYqpxuqwxF4vVzj+UGh5 d8hvxCQfMD8gwDP7LO98JY41oCHw v8L2oUE1L7PxULBzhdoj eypkzLD1ZYUdRTLbxQ73Lg6avYhp Js5rPTQhWZS8NCWysCJoT4VdzU2m UgFtUQKcWPWzO5LnmZQk YSsxN862LEgeAvV3DKPxpsCwN2Hx MXWguYkgNtE7t9C3Eg7ELG47SF15 MA00uTEnu6A5vQV8U4Lx YEYxzimjjbeboXZ5HRHeYBEebK34 Id4nsAvgYu9rUOXaGYT0AVXhpKOo M5UloP2hWmBeUARbVNDd B4YpbIVpJBaoV312VUviKaF4PBYg scTkE4GoCLLtpYcuUfX0j1K2Jw6P Ed16OY67CO94jODlv9V8 zCW4T0HyQISgaixdmekqoXU2RWLx FCOpcW94Yw9agPobEi0pTPEwKMC7 ATAicBSeJ7KfgO2gRfJs PICwOOSfQ6ScjMAjPNxpD342TPby NyH8XRRxcxUeI7UsDZMmzXsaItE1 w0L6Ay8LZMluexd5O8Bd PjwvdHI+FC60BRJuMD50sZKpyHEq b1zheVh3TwOkMGQeQYE3oTlbNRdm v8YqRXFtD44rzURyv9X0 IGN (more content not included)... Normal [facility] Reminder Messageson 05-11-19 24 Reminder Messages - From: NICOLE PETERS DO To: [facility] Clinical Pool ([facility] Sent: 05/05/2023 16:39:25 EST ! Show up: 05/05/2023 16:39:25 EST Subject: Results Follow Up Actions: Call the ordering provider with results Due Date/Time: 05/06/2023 16:38:00 EST Reminder Comments: some osteopenia not osteoporosis yet Results: Date Result Type Result Name 05/05/2023 15:48 Radiology BD Bone Density DEXA Study LVM to return call to office Patient called and notified of results. Left VM. [facility] Reminder Messageson 05-06-19 24 Reminder Messages - From: NICOLE PETERS DO To: [facility] Clinical Pool ([facility]); Sent: 05/06/2023 13:54:58 EST ! Show up: 05/06/2023 13:54:58 EST Subject: Results Follow Up Actions: Call the patient with result(s) Due Date/Time: 05/07/2023 13:54:00 EST Reminder Comments: Birads 1...totally normal mammo recheck 1 year Results: Date Result Type Result Name 05/06/2023 12:36 Radiology ID Mammo Screening 3D Bilateral. Patient called and notified of results. Left VM Normal [facility] Mammo Screening 3D Bilate ral.on 05-05-2023 ID Mammo Screening 3D Bilateral. CLINICAL HISTORY: Screening Mammogram COMPARISON: 04/09/2021 RESULT: 3-D tomosynthesis imaging of the bilateral breasts was performed. There are scattered fibroglandular densities. No suspicious mass, asymmetries, areas of architectural distortion or suspicious areas of microcalcifications. CAD analysis was performed and used in the interpretation. IMPRESSION: BI-RADS 1: NEGATIVE MAMMOGRAM. Follow-up: ROUTINE FOLLOW-UP MAMMOGRAPHY IS SUGGESTED IN ONE YEAR. Board Certified Radiologists. Accredited by the ACR and FDA. MAMMOGRAPHY IS VERY IMPORTANT TO YOUR HEALTH. THE [employer] GUIDELINES RECOMMEND THAT WOMEN 40 YEARS OF AGE AND OLDER SHOULD HAVE A MAMMOGRAM EVERY YEAR. A REMINDER LETTER WILL BE SENT AT THE APPROPRIATE TIME. THIS FACILITY UTILIZES A REMINDER SYSTEM TO ENSURE ALL PATIENTS RECEIVE REMINDER NOTIFICATIONS AT THE APPROPRIATE TIME BASED ON THE RECOMMENDATIONS OF THIS EXAM. THIS INCLUDES REMINDERS FOR ROUTINE SCREENING MAMMOGRAMS, DIAGNOSTIC MAMMOGRAMS IN WHICH THE PATIENT IS ASKED TO RETURN FOR ADDITIONAL VIEWS, OR OTHER BREAST IMAGING INTERVENTIONS WHEN APPROPRIATE. THE PATIENT WILL BE PLACED IN THE APPROPRIATE REMINDER SYSTEM INCLUDING A REMINDER AT THE APPROPRIATE TIME FOR ANY PENDING ADDITIONAL VIEWS. Final Signed (Electronic Signature): Inocencio Joshua MD 05/06/23 12:36 p Technologist: NIDA Assessment: 1-Negative Recommendation: Normal interval follow-up [facility] Coding Summaryon 04-01-2023 Coding Summary HTMLBase 64 LrzhigspZTb7sFl+PGhlYWQ+PE1F XIVsA88zaOCopX1kF6JLLLmBUwgp ABVFUYwUBvPhmsLiXA3bhCUmLIKm IC8+LG7zMZUkZawhgKVsy8F3mLE9 V46onc7hZBqqyEI7BQZvXrUfvbsm g9bodFv4RKnaDhkjNqTp EGRnyG90FHI6hP59Ms43aKHtsPIc i9cllSs8ImYzWDVtNJN7jWlmMVuz y9VpQDIfM19rrHDbq4H5 IJTtwGefjJQwDyDalTB3iQ4eXFgs pcmwa6pqvcvvJmo5mh67iDKhy2C9 sED1B6YnzgV3KFAgfQVn AnrmrSIFvL2gdxsat3egkbyeZaVf SXSlGXu0TZz4RCOhdJgzTcFrVA38 IRF3PHXpemDqE7CxDWQn sDvhUvU8x8E5Fs9JT6OADyxmF3EJ TUFSWTwvdGQ+YY72fb04R5IwZsrd Vly3CMOsSQA7xIH3lB3e NAXsUSpbr8H5rOE3R5CcpxLzfl5t b1daRISeTDqdP19yaMXsa0O1TFEp yRH2EZZclSnbXkAidZ46 Oyc+KAAmqNsly2WoEpuih6txj4zq eWp6VrbeVPSkurBbaQjvGJG5d6Gc Iw4dAKBtgZS1zAG5pY3i ToRsSlK4UQouG750OrHjfBClQihr O89wP5OhqHJ+ZMZnTtb9PPMvsIes FM8sX2CrQEPnkekmgAKb fAdhQR5rLGQkdxpuQORxqQ3pKQOq R0c6LlQkHcD3HQpiN7YaYVGsoxwg Vl15wL7dJxPbPmN4QOcw F6SldwS2BVUbiLMuBJsfMSR4C14q g5S6AYMbLLXvEYF3vEP2lI5pcNaf bjogbGVmdDsgdmVydGlj ZTjyFJqiN194UBSeeNupFiHaRGqf ZyBEYXRlOiAgMTIvMDcvMjAyMzwv dGQ+JVXpTRP1jLwnAFXl eEMkWVlnVa6glRbmtEcaGX3fFZQs vayoXTNhgR6eCPKdxRMeuGozYI1h SRJxviecg998GpHgZSV9 GXRpzXOqN8AeoK9bUcTbSVIsSHEr N9SqaVXqKMutA718ATrfSxN2LTDj xfRhK4AbLMOlvDfaHdD6 x7Q6Ns5Vr8NczemsK1BhkHXjFgWl LbzhWLq9W6UxMrjtqVP+RH11PAIg BJ40LJb2VCD8jMkhDApu IVPoD0EufK8yErAwPGDzEZVpJst+ PHRhYmxlIHdpZHRoPScxMDAlJyBz aXlnAY7sPe7vAGJzQKLw tIfciKDyIwSnm2hjUVJnSJceFX4k iEcgW4GrlAP9XRMsk7v1Zx49E50x C1YvfPQ+VCYxdZE9eGN6 eO0eAsWlPxC9OWjjA832PzZxiSTk Nooab7wcb5craId0FdZ2CSVddzIp eVjeAHV1j5ZwDm19K56g AWkpOLMzSYWvDHHuNFBfiRxujq4n hO4iMd4+MHBnjCI9dTU4pW6hCpPf BkK0IDfqR143HaZtoBWz Mxppb6oqj1mvzEa1KeGjYJXgogVm pLweDID6k8AkPd75X6OlrKqex6Fv Ebr5gd99jAPna3I9kBW8 X5ZrOMXpjwjjbIVvfWrjTX7bOCFp dkirGGYanG0eYOQeF1r0BsKfMyF2 TGytR8DixcF2VJExwLSj QTMxfXMMxL3ljydwv6iuzuczNbUm PNWyBGg8GTf0BCCvvFmcUwQcTEI6 YeZ6XXP4lOYldO0weVbb ndlmuC9qCql+KAI7wOJdzRWEPJ4p OjwvdGQ+PCOwHXY2hGnvZVueCZLv yN5vSCEmQ6y6TtLuBwW0 MUggX9KyjbJ0ZWMwjPQeEOVviUBW pT8iobfcc8eijqabRgSbGJUwXTe8 HPh2DJQgiNtqFxUuRZG4 AuK0OJW1jHXpvT7keWdfsvpppA2v Oyc+IavqmOiqAFV7TQy8M4GhIen3 FYCpfVzbSP3ixPZlJBgd Ua5zyOlzdHybIM3jGLBckdnzn488 UnEgy4enAGHfoSOrPIrvVWE6U91w t4C1RQIqZLSlUNL7eBM1 vM5cfDlvaxndzHSwePizzlBviSsq RFdgTVuxX077EBIgjBvbKgKgVBg1 N8LnTgc2HCNscQwyNY8y mWOqHWsbQq3rjCwcxPfyEC7oTFWx rmmmm318VhVvo8ybSEJrdFWnXZey YLX2K55on7Z0YJCdTRCf WYO4wDM8zE8ptVqiurptdNXpxLuh crUgmWetVTulPXwrO513PEAljDda XbUwzTs9J8RdZqm1APSn zHwgAA2uiCZzCSeeCf1hyNynsJbz EK7mDILvoserc494GuGjs2clLRKk cWAxJTxlISW5X90sl3M8 CAKnMLUtKME6hZD9yH7adKsjwuwu sITrvZqkivLgyFlyFQteFBbyR338 IHRvcDsnPlBhdGllbnQg UGtqMBf7X1TsGpuglBQ+UK56CWMh AP84aTRrxOLqm1iozKd7GfEiIMAs VDK8sUjgWLett3KaWJFe N69noZSwb1S7SQJrsMofmGNtGdPr yFB8jB0uBGatmumnz0tzrcrqTngm q7jaii44sJ97V62yWHsi TAQvEKCcSOQvJXPyoRjuau6bbY1g Ii8+HHBaaBL5hXF1mZ3dCCLaPxR5 MWymT962HeImyJUsAxus z9mga1juoNd9YxC7HNKzldIsmMgg ZLZ8j4CyMd59R75kPLxtPEAzQSYo MRCzTZDstXizds1vcT3h Ii8+FFRrtTI5uWL2dW2oPyPlJbM1 DQtbN496OyHxzSDxMsdrC35xE0Cj dXA+CGHpZde5QVMsnXyu AF4arXIlVChoRb7oVQC7DsDyAbUx NXtgF0VrWSZvnciecqorgIE3DBOe LKDpmD41Wd0upSsmPMMg hFHTsP5usztrt7caypamVhLqMDEt GIz7SNl2HQWgyRxoBlUgPYY9EzH8 STS2cUXegY5ukTylejeu kC1uP2NnEELmcwgcDj79aQ8qLaCm KqY1NPsxBmv+M5GVX1lAWHZJWXaC CVHMDk59H9DiRcn1BNGc rFliNA5znCIhMBmxUm5uiZdezWzq DV1fQOTgxbqvKXCqwV3cOJEyzGVq jDctPR7tGYGslfohk427 NhLjTAL8VQLftVMxS9TdsT7yZqOy UMJlEZFcV8OoeENjBQoeD602XNaw HnS9ZYTqcgCdR4PdJXQz cRsaLaK8a6N5Ab7iCA5mUR5xEOU7 KZ43YE59zSPva6W3uJM9D8DbSQWt gihmjjputBV7ARPzWWBo dK82eIRkOWsfBr0cw3P4p192JDYp KPTqzE31As0grNqdWGJteFXYiO2q wnbzm6vweiklImKlSDRj ZLs1LAo9DSOriVixZrUdBSP4VdP8 QPX3aXEtxU8kwYmpgmuekL0oJhs+ HnktTANsuzB6M7GfAbn3 WPGweKjfIC4goJKhCGmhUa7dhEfr uSinKE6wBUNgeiviEHGynQ2pJXPs ePGgwShiCI1bVDTxqrpd p067IsEhKHL3TRKkoWIwU2IweI0i GuZmLETrCROnB4FcsMFuLHjkJ072 STfjGgH8BRPlklVlS3Vv QRDmrGcyPzS4m4Z5Aj0ABG4PJBE8 H0MsCjv0NRVhxVsoYZ4zsLMrVSos Ui1veZulpKtiBY8jSZLb cjftGDVffV2iPQNdsBYwmUlaJF9w SLImuiwms469DhQgANE1CGJimTVo M0XyyB5iThBtKHEaMWTg E6VieGBxWMljS829KMuyApY4OYPp cyYkP9OzNCRgeTipBoA9u4L6Xj4I UDwvdGQ+PB80lt85P5Xs DhljOay4RWCxHZD5dMT4vB5aVMJm XKxyp4H0jGR9D9CcpmJtmb9ej9dg HAUqIPahF75klJCxk4K1 INWkmQG8OFKudKbbVwEelR04Ssv+ ZQEisPepw9MfZxcfu2wbt4yfmUs4 IjMwJSIgdmFsaWduPSJ0 j2IzVo65B54gSFkdTQRnVNFsKIUd QDUkeRkocq6djM6hPt0+PGNvbCB3 kZU3jB1aJwEvCkM3ZPeu A027HhImqSDrJzlkb2xhz1wbrHl9 ScPrBXIdwaPgcUpqAHT8b1EsHp91 G4BvlOfwd1FjDvb1cs16 nTZpi8X2cFB9P2YyRACnaevqeLWg lTfiKK2xNBHftxnpIFHgtY0uHYQa R6v9SgJgLkK7LJauR3Wm evU3NNCpyVMrNKHbiBLPeK7hfzxx o6ehlopfOeJiTDUeRZd4KFk2LFRa wIueMkTeEUK1JiC2SIU2 yCWuiD0rrFymqisjxQ3vSqr+UGh5 q6ozwGUsHW0hkRQ2TC45QL68hYGk b3J0cYL8J9DyEXBhjcxh houevPY0RDPjWLAbxV41Ur9jeBsd Yd6nWJBjNZB7CNRtwCHwU2SmvQ0e LtVdGYAwCQTbA0NcmSEc AHueQ485BHpoRdJ4NXQkczXsA5Kz OLVutGzeGtM2f7G9Wb5BSU94MO88 YZ76dWOzh2E2oXC4Q7Gx JSCiaithmzkalLM0YQUbDALawV20 Bp4nvBhbNv3tDJMtOGT5PVZysQId H5HlmY6tMjNpMNZfCFKt A4FijFGyZJgoU967QZkoViM8DPWd daLgJ0YlWLGktXrqTwH3g8K2Od1W Nf03GD05WH90gXQqd6W5 eBZ3L3IiVUFqpvvkaawtcOR4NNQd KOYrkG04Oh0kmRmzIo3iCBJtACV6 MQKlvJTqU0XfrM5nBwNw SREhOIDxN6YaaCNtRHgeX699DKwl QjN9MBEgcqSnC2KrHKUhuUqrNlK8 o3T0Of5LEHhmwgi0Y2Ra PjwvdHI+PE34ZBDqDV47xJMpzYYs n4eupWl6NkUfYVBgGOE5dXxpVWmk k1InHDQqD20cfXVko2A4 IGN (more content not included)... [facility] Coding Summary HTMLBase 64 BdwzppmjCOl6hZx+PGhlYWQ+PE1F WFBwN64cbXTirO3uO2TBMMkHBxgb ZAVZTAlTRaUwjfYjNX6tjIHzOXTo IC8+TB4eKBFdTmpxeCOpv5Z8mPK9 A33izt7kDHhuwGX8ZFWvWsOvcwmq c9haeHz6VVmnYfnvNvFa CNOyjX18IWP0tX51Qy60iOHwtUJf x9ktjVf1YnElYUKqAXS2vHgeEBea m4XgZRTvU91viNLts2K3 AVPrwWgtsWZrWxKkfVB2dI6iXRku oqkmh9mijkseMco6qb67jJCti8W2 kVE3Y9SdosK0DALfyQTo TxexcOKHuA1rdtwkw1enndcnKyZw FKJhMBh0PVe8LHYhzEihLyYjTL69 FWP7FKHhksSkE3FtRJKb vHovKwF6o6V7Xk6NG4PDZrkeP0QE TUFSWTwvdGQ+FM28mq32X9FhPbty Qye2PTGjURJ3cGP5nI5y EAIpDHztw8M3nBR5J5ZyqrPotz1c l6wkFNWpGWyoH12tcPAix9H3DJEm yPR0SFWzqFchZhVzcM65 Oyc+HODnkBjej9PqLkpqj3myp8nn kMp7XomgPGTuwfBceKftDQC1h9Fr Cv9mKCSelVJ0nLN2gO4z KbGuOhI5OKtvZ089KiUldSZxKtac Q39lW4TypUL+WTJeLik7OKFxsNsy IM0xT1XwZJLawtosrINz zUrmVQ1yMHDzhznwFHEukN9jQEQv R7v0NoVdPoO5LXkcQ9XiJLMfywlw Hm27dM0aXtHpDxJ5FJti K3QdhrP2UXGxkZHcSGoeYEO0L66t q1S4WQVqPBWqRQE7aJX6lW9ciTsh bjogbGVmdDsgdmVydGlj DEwnXRsuB324MAAxdXvnCtUrYEoa ZyBEYXRlOiAgMTIvMDcvMjAyMzwv dGQ+LMQtTVZ0bAhpFZWd zBPtHNoqDx7guCxckKjfAN0fADJw ekjqXDHadU5dNTGouJXacRmhIL3f RRNmktnpx459LcViUZE5 FSVxgMTjQ2EhwS2iPnKqCRXdHFKo V5FzgXUcQYbgG486NOqaDdI5DCRv kpAkW0HoCQUmqBfzChE6 w9W6Yt8Ux4UxjkafV2NqvRPkVxSh EcjfUMh4Q2EgVmlwaWN+JP16CDSo IK20BEv8NQY1rGsgGWmx NBOzW4PrfM0wXgZvVNAbHLPcFlu+ PHRhYmxlIHdpZHRoPScxMDAlJyBz uGwyLZ7bBp9nEQEkVYPt aWetiDNpBoUzd3baHWFbPRuyYY9n bIdsG8MpwHV9DYZrn8m8Kj84S52d W2VozAS+VIBttXP5pQN7 rK7aTyGrIlJ7QBkvR936VoCleOYe Ettym6dwe6vpjVw8GqQ0ZACospXc xLvyDIV9z8MdAt05X20x RBvzMWTiAUEcBNJdSTUboUhydd3l sM5gCz5+UVShnON6yVD4gG7jHtGb KhD2UOusM493MgJoiJQb Pafhv4icp1ytlQa2SmMmDMFbloAs bNhuNVQ3k9HeRt07B7IsyEvqv3Au Lmb3bh98wVMgp8A3qUV5 O3QwIPGmswymkPJwyHsxNA9bWUTu oobyBJKpeI9oNOEaF3g1XeXdIrH9 KOjfO8QpqbQ7RZNhgGWv FWOshINNvN3vuwpkd2resrvaJnJr YQAnYVf9TWw0OHJjhEkqYyEbMKT5 QmJ0HTV6rOBaeF6upMtg reprnJ4aUet+AWS9jMUugUMNUZ7u OjwvdGQ+PCPsQXA4nKwrWPoyUTTf iL1aSIBoI4f5SyHyEfD3 NIkxL6ZuydO0KKDpqLHhINVdlWAP rO3wrxnvl8cbssxaVnOxVGDnLBi5 FHq5ICHpcRnwMnFuIDU7 WvU8RJD5sABpgX7pjLhfudbjgO3r Oyc+HwkunIsuYLD8JTw8R8HiNzr1 DEAulQnuJY2xqCHqBIsj Xm1dcBuivNchWH1uMXNkfpmmj764 BjYfe2coCGPqxGZeUTacHNI6I10m s4O5SWFtKLYbAXV0iPQ1 jF6yzLspjvjljPNgxYifhlIwsOvz IAczQQopR668GUPmaYpoFsUyZZl9 N9KrWtz1XXWjcZinXO1s aYBsPHfdVg4xxHuljZgpGM0oHLYi ahfiz233AfVdb8mwXNBhiKKeKFml IYK9I18yd1V9AQDaKQRg MWL0zAP4pI4ykSmezjfgcDIklRrp hcRzcXmgKDyrUMlqK593LYUsbMjn MoPonPe9Z1DtTmi5FSZo aLvdTS0viBZzIBjxJp8vyAruhDwf SR1lFZRlufhdh515QpWgh0ayZQLy cLUmKUdgKHG1Y70aj4S5 VZWaCONbVEU5pQD4lZ9wtStsuvpe hNUuwDfbcrLmeCprHHgkFFcyQ889 IHRvcDsnPlBhdGllbnQg BKlgRLt2E1IqXbcezTJ+NL12DXLe ZN03wXMfmDGyv4eyfSy3PwWqYEFk GLJ8rCfzYVkgc6TpEKHh M95wyWKxw6K3TZCigNdjcCVcScSf vIH9xM4aFIvdpyfeh5vlvdtiMhme o7wxzv21oM23X88yQCyl RZFrJPLqFOVfDPLfbZcxpw8reR9d Ii8+OANzfHA1nPU5cI5eCHRyBmD1 NPjyG094MxXifSDlDqlr p2syh8jwhPn8CfH8LQWlcxYxsJyj HLR3z6OlXw84Z48gFPwjCMWzDCVz ORNhOKIvnRybfh1loV2m Ii8+HHOcuOI3aAB9cX1gKwGkYjO4 YDybS171XyWggUBvZumbA61sV5Rs dXA+BEAbSdx1MPCgqJst MK6udAKqOOytCw7xBOB7MrQmPnPk NFxjN3DcLWTboecvhklxyUZ4IHQz HORfjG04Vv1hlFvyWTSn rLAWyE1gmltly6ytnoxpAfOgCHXy QEr2LYz8QLAjfDizDvEcDLJ6AfT0 OTM5yFEqyQ7yvJzajjwv cN4aM6FyBQTgvhmtDi19lX5iGsYl GjS6WMdcYat+O7SIR3xVHJZJQUhF BEQAWk60Y0MjPkb2UDPu rTraKB4cqXBwBBqmNf6shBobiJfj RF3dBLUnjmjsHZMnrW2bYRHifZXx xVcaJD2fODElmvhkl354 IoQqLYX5SZXbyHEwL4ReiH1pSsAy YYIhWIFeK3UdnFJjQOyfY914FAiv WkY0PQBfzqXtG5LjBFVh sGmoOtI8x3L8Ud9kMN4mGG5rMAS9 KK45FA76jPCwb3W3tHU4Q0ItIYCx qanmoekjhLY8RRQtKOQx xW15mYUpXRceWa7lo3U8y877EQPp CGWpsK78Ga9opAloUYJjhOMTyB2x ogebu2jfgmysVmIoAPMx LTs5SYt8RPCfjLthNzMfFBZ3YhZ5 XQL2iACxzH3mvWevxktwyS4lLym+ OnugFFHcsjS9P3AdXdh2 VUWhcZmiEA5quJRaLYgtUk1ulNpb sDvuFF5aZWQdppqrJONfuV1gRUTo jTYdhYioHR9vFVFwqnls a318QaZbTNA5DTQvlPJiJ9ZgnG1i DgYbEWCdGKHlI6CnsKNuWQdwX950 ARgiKqF2ACExdbHaD0Sd FAEioPsqTlQ0b3B5Fq0SYZ6XIHQ6 R6WsOyz3QWUnzOjcOG7hvWWwNRuf Vm1auDvwiLvnPH9eDSRh titmCYCxuX5vTCTxmFJraZnsCI7p VJVmjgxby118QfLbKKU4IVLzwGRm D4VcgZ2eJeVoJNDaQNBb A6VgfURvJUbtN844CZdnRfV8RDHg udXjR3ZoIWAwcRmoReW6k6Q3Ic7U UDwvdGQ+DI73vt38Z6Ll SgtvQno6QATgKMY2fJR4aX6rKKZe FXnes7M3cBB2D7JlvdHlso1jt7pd KQPlKYvlC13bzWDwn4Q5 IPFauIH6NTZzmDfkPjNjnS17Wmc+ MEDprVkmt9OsXoled9gtd0vwlCs2 IjMwJSIgdmFsaWduPSJ0 s3JrFk07O22vGTpwRMXfJDSlAXNc VKCouKurdl0fnN4uKk2+PGNvbCB3 iIY8rC5ePaTaAwX4WJrb B283McEvyDElUlprd0qli9eheXm8 IdTwIVWzxbPpcLseHRU8v3IjUo01 N9WzqLlzc8CyTzw0tc76 sSFtm5U1aOS1L7SpJCXrikbtfLLn fQwfHQ2fTOIdgzdlZZWbgZ5sMHJi H4v4ZmFuIxS9CMheR0Kb bpV3AFUpsJCaXSEbwSHYhD6tlxpo h0vxscanLbWnFAZbASy8RWo0AGPw yPmdExQrMYA3DtV3HAU9 wCIliK2ucGxdtlqplJ9eLxp+UGh5 w0myiLYpGT2ktPF6FW50WG44rIBc c4P7wXA9V7FhSKRjrhau ioiedVP5OFUhGNHeuZ04Or2xuKbo Fe3tMKWdUKQ2NMGjcBPyO4ZdnH6u ItEiCVUmVGMtG4IrvLJu FCngJ480JWptMaH7GCYbooYiQ7Aj GNVdrOtaAqH4k5C1Sd9FZY73LT29 VI93fPAdh3U9oJP5L9Tl KPOtrcfcrdbycGW8AXUfWUNwlZ39 Xn1dnTkvAv6qLPQxXKI9ARPouSJc A9WziK3qEcIeGQZfIURf B6VqhEGkFJbpR996QZgbBfO9OCRl rmUeJ4YpVZQnnLtsKiL3t7L7Ec0P Yj73NR76CB31yGOba9J0 fEV5R1XnAKXykszwxowukFC5RIRk RHLimE05Io2ybFyhIu3lCIPgEPQ7 LOFlbEOzW6GnkY1aCcOd QNByQBHoK8TdhVIiVMllU556OHyd GxD5SUZkjhXkB8ZvILDtyPxlHiU2 l8G8Xs0DVYpyknx9T4Wt PjwvdHI+BW29IUUfVD81oYXzrEQc n0qbpUl7OrMrYNIdBRD2rTbcEPyw f6XeOCMuF16tmHFha6N7 IGN (more content not included)... Normal [facility] MR head/brain wo/w conon MR head/brain wo/w con [facility] [place] [address] MRI Report Signed Patient: Flaquita Robertson MR#: [id number] 47 : 1955 Acct:[id number] Age/Sex: 67 / F ADM Date: 03/30/23 Loc: MR Room: Type: [facility] Attending Dr: Ashu Goff OD Copies to: Ashu Goff OD Ordering Provider: Ashu Goff OD Date of Service: 03/30/23 MR/MR head/brain wo/w con: H57.11 ([id number]) MR/MR orbit wo/w con: H57.11 MR orbit wo/w con, MR head/brain wo/w con 03/30/2023 6:17 PM SIGN AND SYMPTOMS: Pain in right orbit with visual disturbances PROTOCOL: Multiplanar multisequence MR images of the brain were obtained with and without IV contrast CONTRAST: 15 mL of intravenous ProHance COMPARISON: 06/02/2021 FINDINGS: Extra axial spaces: There is mild diffuse age-related mild loss similar to the prior exam. Hemorrhage: None. Ventricular system: Within normal limits. Basal cisterns: Within normal limits and not effaced. Cerebral parenchyma: Periventricular and subcortical white matter T2 and FLAIR hyperintense foci are noted similar to the prior exam. Midline shift: None.. Cerebellum: Within normal limits. Brainstem: Within normal limits. OTHER: Calvarium: Normal marrow signal. Vascular system: Satisfactory flow voids within the anterior and posterior circulation. Visualized Paranasal sinuses: Within normal limits. Visualized Orbits: Within normal limits. Visualized upper cervical spine: Within normal limits. Sella and skull base: Within normal limits. MR/MR orbit wo/w con IMPRESSION: No acute intracranial pathology or abnormal postcontrast enhancement. The orbits are within normal limits. Periventricular and subcortical white matter T2 and FLAIR hyperintense foci are noted similar to the prior exam. Mild diffuse age-related cortical atrophy is redemonstrated. Impression dictated by: Diaz Quintero M.D.03/31/2023 9:24 AM Dictation Location: [place] [address] Transcribed By: [facility] 03/31/23923 Dictated By: Diaz Quintero II, MD 03/31/23903 Signed By: 03/31/23923 [facility] .Auto Diff 03-30-2023 Auto Bertie % 9 % Normal 05-07 [facility] 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: Performed By: #### 1 [id number], [id number], [id number], 84426826, 3777371, 8865097 ####[facility] (DEFAULT)[address] [place] [address] 28644 Baso Abs# 0.0 x10 Normal 0.0-0.2 [facility] 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: Performed By: #### 1 [id number], 5352224377, 2764269097, 10400564, 0836878, 4564072 ####[facility] (DEFAULT)[address] [place] [address] 08828 Basophils/100 WBC (Bld) 0.9 % Normal 0.2-2.0 [facility] 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: Performed By: #### 1 [id number], [id number], 4572233881, 93719731, 0219281, 6640077 ####[facility] (DEFAULT)[address] [place] [address] 42666 Eos Abs# 0.1 x10 Normal 0.0-0.4 [facility] 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: Performed By: #### 1 1549896, 6271097007, 5770112594, 99658568, 5561187, 9611875 ####[facility] (DEFAULT)[address] [place] [address] 29819 Eosinophils/100 WBC (Bld) 1.8 % Normal 0.9-4.0 [facility] 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: Performed By: #### 1 3382601, 5456613221, 3962458870, 86418135, 8547355, 9577404 ####[facility] (DEFAULT)[address] [place] [address] Lymph Abs# 1.8 x10 Normal 1.3-2.9 [facility] 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: Performed By: #### 1 8166865, 6278494171, 6564892420, 59226651, 8180062, 1227199 ####[facility] (DEFAULT)[address] [place] [address] Lymphocytes/100 WBC (Bld) 33 % Normal 14-48 [facility] 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: Performed By: #### 1 4542353, 6779038045, 5107983751, 30760944, 5160579, 3970143 ####[facility] (DEFAULT)[address] [place] [address] Bertie Abs# 0.5 x10 Normal 0.0-0.8 [facility] 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: Performed By: #### 1 8026575, 1004077309, 4965513258, 31918577, 8630422, 7315338 ####[facility] (DEFAULT)[address] [place] [address] Neut Abs# 3.0 x10 Normal 1.5-9.2 [facility] 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: Performed By: #### 1 8040939, 8895436039, 3805310644, 79281650, 8364178, 9757446 ####[facility] (DEFAULT)[address] [place] [address] Neutrophils/100 WBC (Bld) 55 % Normal 44-88 [facility] 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: Performed By: #### 1 9321283, 7972779915, 2468255440, 49003238, 9322062, 8900178 ####[facility] (DEFAULT)[address] [place] [address] CBC w/ Auto Diffon 3 Erythrocyte distribution width (RBC) [Ratio] 13.7 % Normal 11.5-15.0 [facility] 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: Performed By: #### 1 9604817, 5759542649, 4994305978, 57352304, 0709661, 4436101 ####[facility] (DEFAULT)[address] [place] [address] Hematocrit (Bld) [Volume fraction] 43.7 % High 33.7-40.4 [facility] 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: Performed By: #### 1 8744022, 1992810247, 5887514496, 33268061, 4077113, 0044103 ####[facility] (DEFAULT)[address] [place] [address] Hemoglobin (Bld) [Mass/Vol] 14.6 g/dL Normal 11.3-15.9 [facility] 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: Performed By: #### 1 5866955, 1717064380, 7503739858, 89703027, 1630256, 0211109 ####[facility] (DEFAULT)[address] [place] [address] Man Diff? Auto Invalid Interpretation Code [facility] 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: Performed By: #### 1 5509652, 8045099244, 5121156688, 03427900, 9652863, 6855423 ####[facility] (DEFAULT)[address] [place] [address] 70118 MCH (RBC) [Entitic mass] 32 pg Normal 24-34 [facility] 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: Performed By: #### 1 6610432, 5811868958, 5005532083, 25579230, 6595043, 8185793 ####[facility] (DEFAULT)[address] [place] [address] 49441 MCHC (RBC) [Mass/Vol] 33 g/dL Normal 26-37 [facility] 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: Performed By: #### 1 2687333, 4859219560, 7056580718, 32154804, 2537916, 6525797 ####[facility] (DEFAULT)[address] [place] [address] 41025 MCV (RBC) [Entitic vol] 95 fL Normal 81-100 [facility] 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: Performed By: #### 1 9535818, 5461915189, 7844800244, 87139903, 4565682, 1398786 ####[facility] (DEFAULT)[address] [place] [address] 27807 Platelet 305 x10 Normal 138-427 [facility] 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: Performed By: #### 1 3939886, 6812750467, 9777289205, 12932202, 4486120, 8559716 ####[facility] (DEFAULT)[address] [place] [address] 70958 Platelet mean volume (Bld) [Entitic vol] 7.8 fL Normal 6.3-10.2 [facility] 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: Performed By: #### 1 3152959, 1998117395, 5388436311, 04549503, 6368246, 8284000 ####[facility] (DEFAULT)[address] [place] [address] 74493 RBC 4.62 x10 Normal 3.70-5.30 [facility] 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: Performed By: #### 1 1189151, 3883703949, 6971621383, 21145845, 5269802, 4423035 ####[facility] (DEFAULT)[address] [place] [address] 08753 WBC 5.5 x10 Normal 3.5-10.5 [facility] 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: Performed By: #### 1 3689764, 5107493480, 4230767411, 69786777, 7595833, 8399233 ####[facility] (DEFAULT)[address] [place] [address] 26191 CMP Standardon 03-30-2023 eGFR Non AA >60 Invalid Interpretation Code [facility] 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: Performed By: #### 1 5435165, 6843215325, 3527447106, 25732654, 4525323, 8453477 ####[facility] (DEFAULT)[address] [place] [address] 77634 eGFR AA >60 Invalid Interpretation Code [facility] 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: Performed By: #### 1 6426313, 2212936857, 4192864615, 55158738, 3020438, 3447207 ####[facility] (DEFAULT)[address] [place] [address] 69207 Albumin [Mass/Vol] 4.0 g/dL Normal 3.5-5.0 [facility] 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: Performed By: #### 1 3027028, 7917799672, 6776089436, 06057311, 9390542, 6271835 ####[facility] (DEFAULT)[address] [place] [address] 81054 Albumin/Globulin [Mass ratio] 1.1 {ratio} Low 1.4-2.6 [facility] 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: Performed By: #### 1 5598870, 8103741330, 1988591393, 20183198, 1282580, 0614753 ####[facility] (DEFAULT)[address] [place] [address] 44475 Alk Phos 79 IU/L Normal 32-91 [facility] 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: Performed By: #### 1 2036297, 8327216420, 1266583678, 22821262, 8993037, 5781001 ####[facility] (DEFAULT)[address] [place] [address] 21974 ALT [Catalytic activity/Vol] 31.0 U/L Normal 14.0-54.0 [facility] 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: Performed By: #### 1 9596513, 5374568888, 3448175833, 79401631, 6360280, 1731461 ####[facility] (DEFAULT)[address] [place] [address] 42480 Anion gap [Moles/Vol] 9.6 mmol/L Normal 5.0-19.0 [facility] 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: Performed By: #### 1 5647830, 1800308492, 9144539225, 76072248, 5035546, 3938509 ####[facility] (DEFAULT)[address] [place] [address] 73799 AST [Catalytic activity/Vol] 25 U/L Normal 15-41 [facility] 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: Performed By: #### 1 2349962, 7260429208, 2309482130, 68146738, 6943287, 6097485 ####[facility] (DEFAULT)[address] [place] [address] 49171 Bili Total 0.6 mg/dL Normal 0.3-1.2 [facility] 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: Performed By: #### 1 8328944, 3389458076, 2993586683, 31210068, 1433375, 9427224 ####[facility] (DEFAULT)[address] [place] [address] 97836 Calcium [Mass/Vol] 8.9 mg/dL Normal 8.9-10.3 [facility] 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: Performed By: #### 1 8216185, 4176449550, 9588505169, 08661958, 2531735, 1297916 ####[facility] (DEFAULT)[address] [place] [address] 66926 Chloride [Moles/Vol] 109 mmol/L Normal 101-111 [facility] 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: Performed By: #### 1 [id number], [id number], 4650453932, 86678333, 4481305, 1849694 ####[facility] (DEFAULT)[address] [place] [address] 83347 CO2 [Moles/Vol] 26 mmol/L Normal 21-32 [facility] 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: Performed By: #### 1 [id number], [id number], 9845809187, 04478573, 0565079, 8639355 ####[facility] (DEFAULT)[address] [place] [address] 17520 Creatinine [Mass/Vol] 0.78 mg/dL Normal 0.60-1.30 [facility] 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: Performed By: #### 1 [id number], [id number], 1118780527, 25033541, 4492664, 6983999 ####[facility] (DEFAULT)[address] [place] [address] 64357 Globulin (S) [Mass/Vol] 3.5 g/dL Normal 1.5-4.3 [facility] 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: Performed By: #### 1 [id number], 7402305887, 4548104004, 49392530, 3955849, 2714023 ####[facility] (DEFAULT)[address] [place] [address] 74454 Glucose [Mass/Vol] 104.0 mg/dL Normal 74.0-118.0 [facility] 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: Performed By: #### 1 [id number], [id number], 6656671485, 31029398, 7671454, 2928657 ####[facility] (DEFAULT)[address] [place] [address] 28049 Osmolality 282 mOsm/L Invalid Interpretation Code [facility] 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: Performed By: #### 1 5784493, [id number], 2518763962, 62776308, 5024055, 3036030 ####[facility] (DEFAULT)[address] [place] [address] 67508 Potassium [Moles/Vol] 4.6 mmol/L Normal 3.6-5.1 [facility] 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: Performed By: #### 1 8640866, 7035165216, 8999810918, 08928895, 1795084, 9495807 ####[facility] (DEFAULT)[address] [place] [address] 60101 Protein [Mass/Vol] 7.5 g/dL Normal 6.5-8.1 [facility] 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: Performed By: #### 1 1543786, [id number], 6015173650, 51673800, 0546801, 1910382 ####[facility] (DEFAULT)[address] [place] [address] 81766 Sodium [Moles/Vol] 140.0 mmol/L Normal 136.0-144 . 0 [facility] 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: Performed By: #### 1 6463446, 1899190056, 2178850308, 04071428, 2994591, 2681853 ####[facility] (DEFAULT)[address] [place] [address] 72979 Urea nitrogen [Mass/Vol] 18 mg/dL Normal 8-26 [facility] 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: Performed By: #### 1 4073778, 0371822254, 8725904500, 82061736, 6516197, 5095884 ####[facility] (DEFAULT)[address] [place] [address] 35211 Urea nitrogen/Creatinine [Mass ratio] 23.0 mg/mg High 4.6-16.2 [facility] 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: Performed By: #### 1 6037484, 1593446759, 1122993492, 92163230, 0626489, 5234738 ####[facility] (DEFAULT)[address] [place] [address] 70069 CRPon 03-30-2023 CRP 0.5 mg/dL Normal <=0.5 [facility] 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: Performed By: #### 2 [id number], 6976492 #### [facility] (DEFAULT) [address] [place] [address] 52960 Creatinine (Bld) [Mass/Vol]O rdered By: Ashu Goff on 03-30-2023 Creatinine [Mass/Vol] 0.7 mg/dL 0.6-1.3 [facility] 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: ER/ESD physician is notified/shown all ISTAT results.Critical values may be confirmed by laboratory testing ifdeemed necessary by ER attending doctor. ISTAT XRay CREon 03-30-2023 Creatinine [Mass/Vol] 0.7 mg/dL Normal 0.6-1.3 [facility] 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: Result Comment: ER/E SD physician is notified/shown all ISTAT results. Critical values may be confirmed by laboratory testing if deemed necessary by ER attending doctor. Performed By: #### I SCRE #### [facility] [address] ISTAT GFR > 60.0 Normal [facility] 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: Result Comment: PERF ORMED BY: [place] [address] PATHOLOGIST [employer] SONNY CORDERO M.D. Performed By: #### I SCRE #### [address] Lipid Panel Standardon 03-30 Cholesterol [Mass/Vol] 251.0 mg/dL High 66.0-200.0 [facility] 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: Performed By: #### 1 [id number], [id number], 6141082530, 68563510, 2440578, 7868456 ####[facility] (DEFAULT)[address] [place] [address] 67544 Cholesterol in HDL [Mass/Vol] 71 mg/dL Normal 40-71 [facility] 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: Performed By: #### 1 6740073, 7514692853, 1524294539, 70042934, 0294167, 1914399 ####[facility] (DEFAULT)[address] [place] [address] 01251 Cholesterol in LDL [Mass/Vol] 156 mg/dL High 1-100 [facility] 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: Performed By: #### 1 3782079, 6086106962, 0442224371, 30555650, 9040058, 0583651 ####[facility] (DEFAULT)[address] [place] [address] 00919 Cholesterol.total/Ch olesterol in HDL [Mass ratio] 3.5 {ratio} Normal 0.0-4.5 [facility] 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: Performed By: #### 1 [id number], 2829406769, 6763750332, 57421229, 3183685, 0370502 ####[facility] (DEFAULT)[address] [place] [address] 35975 Triglyceride [Mass/Vol] 118.0 mg/dL Normal 0.0-150.0 [facility] 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: Performed By: #### 1 7735818, 1024586745, 1521543633, 78092627, 3525183, 4837331 ####[facility] (DEFAULT)[address] [place] [address] VLDL. 24 mg/dL Normal 5-40 [facility] 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: Performed By: #### 1 6089760, 6434550313, 1931532898, 15477375, 7631297, 3239826 ####[facility] (DEFAULT)[address] [place] [address] No Panel InformationOrdered By: Ashu Goff on 03-30-2023 Bedside Estimated GFR (eGFR) > 60.0 [facility] Provider Orderson 03-30-2023 Provider Orders [id number] Normal [facility] Reminder Messageson 03-30-20 Reminder Messages - From: NICOLE PETERS DO To: [facility] Clinical Pool ([facility]); Sent: 03/30/2023 12:31:24 EST ! Show up: 03/30/2023 12:31:24 EST Subject: Results Follow Up Actions: Call the patient with result(s) Due Date/Time: 03/31/2023 12:30:00 EST Reminder Comments: cholesterol a bit high. otherwise looks okay Results: Date Result Name Ind Value Ref Range 03/30/2023 10:18 Sodium Level 140.0 mmol/L (136.0 - 144.0) 03/30/2023 10:18 Potassium Level 4.6 mmol/L (3.6 - 5.1) 03/30/2023 10:18 Chloride Level 109 mmol/L (101 - 111) 03/30/2023 10:18 CO2 26 mmol/L (21 - 32) 03/30/2023 10:18 Anion Gap 9.6 mmol/L (5.0 - 19.0) 03/30/2023 10:18 Glucose Level 104.0 mg/dL (74.0 - 118.0) 03/30/2023 10:18 BUN 18 mg/dL (8 - 26) 03/30/2023 10:18 Creatinine Level 0.78 mg/dL (0.60 - 1.30) 03/30/2023 10:18 BUN/Creat Ratio ((H)) 23.0 (4.6 - 16.2) 03/30/2023 10:18 eGFR AA >60 mL/min/1.73m2 03/30/2023 10:18 eGFR Non AA >60 mL/min/1.73m2 03/30/2023 10:18 Calcium Level 8.9 mg/dL (8.9 - 10.3) 03/30/2023 10:18 Bili Total 0.6 mg/dL (0.3 - 1.2) 03/30/2023 10:18 Alk Phos 79 IU/L (32 - 91) 03/30/2023 10:18 AST/SGOT 25 IU/L (15 - 41) 03/30/2023 10:18 ALT/SGPT 31.0 IU/L (14.0 - 54.0) 03/30/2023 10:18 Protein Total 7.5 gm/dL (6.5 - 8.1) 03/30/2023 10:18 Albumin Level 4.0 gm/dL (3.5 - 5.0) 03/30/2023 10:18 Globulin 3.5 gm/dL (1.5 - 4.3) 03/30/2023 10:18 A/G Ratio ((L)) 1.1 (1.4 - 2.6) 03/30/2023 10:18 Osmolality 282 mOsm/L 03/30/2023 10:18 Cholesterol ((H)) 251.0 mg/dL (66.0 - 200.0) 03/30/2023 10:18 HDL 71 mg/dL (40 - 71) 03/30/2023 10:18 Chol/HDL Ratio 3.5 (0.0 - 4.5) 03/30/2023 10:18 LDL ((H)) 156 mg/dL (1 - 100) 03/30/2023 10:18 Trig 118.0 mg/dL (0.0 - 150.0) 03/30/2023 10:18 VLDL. 24 mg/dL (5 - 40) 03/30/2023 10:18 T4 7.56 mcg/dL (6.09 - 12.23) 03/30/2023 10:18 TSH 2.02 mcIU/mL (0.45 - 5.33) 03/30/2023 10:18 WBC 5.5 x103/mcL (3.5 - 10.5) 03/30/2023 10:18 RBC 4.62 x106/mcL (3.70 - 5.30) 03/30/2023 10:18 Hgb 14.6 gm/dL (11.3 - 15.9) 03/30/2023 10:18 Hct ((H)) 43.7 % (33.7 - 40.4) 03/30/2023 10:18 MCV 95 fL (81 - 100) 03/30/2023 10:18 MCH 32 pg (24 - 34) 03/30/2023 10:18 MCHC 33 gm/dL (26 - 37) 03/30/2023 10:18 RDW 13.7 % (11.5 - 15.0) 03/30/2023 10:18 Platelet 305 x103/mcL (138 - 427) 03/30/2023 10:18 MPV 7.8 fL (6.3 - 10.2) 03/30/2023 10:18 Auto Neut % 55 % (44 - 88) 03/30/2023 10:18 Auto Lymph % 33 % (14 - 48) 03/30/2023 10:18 Auto Bertie % 9 % (1 - 12) 03/30/2023 10:18 Auto Eos % 1.8 % (0.9 - 4.0) 03/30/2023 10:18 Auto Baso % 0.9 % (0.2 - 2.0) 03/30/2023 10:18 Neut Abs# 3.0 x103/mcL (1.5 - 9.2) 03/30/2023 10:18 Lymph Abs# 1.8 x103/mcL (1.3 - 2.9) 03/30/2023 10:18 Bertie Abs# 0.5 x103/mcL (0.0 - 0.8) 03/30/2023 10:18 Eos Abs# 0.1 x103/mcL (0.0 - 0.4) 03/30/2023 10:18 Baso Abs# 0.0 x103/mcL (0.0 - 0.2) Patient called and notified of results. Verbalized understanding. Normal [facility] Sed Rateon 03-30-2023 Sed Rate 11 mm/hr Normal 0-20 [facility] 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: Performed By: #### 2 [id number] #### [facility] (DEFAULT) [address] [place] [address] T4, Totalon 03-30-2023 T4 [Mass/Vol] 7.56 ug/dL Normal 6.09-12.23 [facility] 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: Performed By: #### 1 [id number] ####[facility] (DEFAULT)[address] [place] [id number] TSHon 03-30-2023 TSH Qn 2.02 m[IU]/L Normal 0.45-5.33 [facility] 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: Performed By: #### 1 [id number] ####[facility] (DEFAULT)[address] [place] [address] Controlled Substances Agreem entson 12-24-2022 Controlled Substances Agreements [id number] Normal [facility] Infusion Flowsheeton 023 Infusion Flowsheet 130/79 MG-Amb ulato ry Infusion [place] [address] DO Work Phone: Infusion Flowsheet 82 1 MG-Amb ulato ry Infusion [facility] [address] DO Work Phone: Infusion Flowsheet 16 1 MG-Amb ulato ry Infusion [facility] 1600 DO Work Phone: Infusion Flowsheet 96.8 1 MG-Amb ulato ry Infusion [facility] 1600 DO Work Phone: Infusion Flowsheet 95 1 MG-Amb ulato ry Infusion [facility] 1600 DO Work Phone: Infusion Flowsheet 300 MG VYEPTI MG- Ambulato ry Infusion [facility] 1600 DO Work Phone: Infusion Flowsheet NORMAL SALINE 125 ML MG-Ambulato ry Infusion [place] [address] DO Work Phone: Infusion Flowsheet ZERO MEDICATION WASTED MG-Ambulato ry Infusion [place] [address] DO Work Phone: Infusion Flowsheet INFUSION COMPLETE. L INE FLUSHED WITH 30 ML NORMAL SALINE MG-Ambulato ry Infusion [place] [address] DO Work Phone: Infusion Flowsheet LM MG-Amb ulato ry Infusion [place] [address] DO Work Phone: Infusion Flowsheet VYEPTI 300 MG MG- Ambulato ry Infusion [place] [address] DO Work Phone: Infusion Flowsheet NORMAL SALINE 100 ML MG-Ambulato ry Infusion [place] [address] DO Work Phone: Infusion Flowsheet Infusion Started MG-Ambulato ry Infusion [place] [address] DO Work Phone: Infusion Flowsheet 200 ML//HR MG-Amb ulato ry Infusion [place] [address] DO Work Phone: Infusion Flowsheet PT WITHOUT SIGNS OR SYMPTOMS OF REACTION MG-Ambulato ry Infusion [place] [address] DO Work Phone: Infusion Flowsheet LM MG-Amb ulato ry Infusion [place] [address] DO Work Phone: Nurse Visit (Infusion-Inject ion Services)on 10-28-2022 Nurse Visit (Infusion-Injection Services) Orders-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 Patient is here for Infusion. Name of Medication: VYEPTI 300 MG. Diagnosis Assessed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 mobility/ROM, improved posture and improved knowledge and understanding of condition. Patient was able to complete today's treatment with some difficulty. Adult Risk Screening Initial Fall Risk Screening: FLAQUITA has not fallen in the last 6 months. FLAQUITA does not have a fear of falling. She does not need assistance with sitting, standing or walking. Does not need assistance walking in her home. She does not need assistance in an unfamiliar setting. The patient is not using an assistive device. Please identify location of pain: Right muscle tension headache. 10/10 at worst. Pain Quality: aching. Insurance Insurance reviewed Visit number: 6 Approved number of visits: 6 Authorization not required after evaluation Subjective Patient reports:. Reports her dizziness is still a lot better. Headaches: 0-10 to 3/10 at worst Much better . Home program performing as directed: Yes. Precautions: Fall Risk: none History of Migraines. Objective Ortho No dizziness today. ROM / Joint Mobility (Range of Motion in degrees) Cervical: ([place]: P! Denotes Pain with Movement) Side Flexion: R Active 43, L Active 43. Rotation: R Active 72, L Active 74. Treatment Time in clinic started at 9:15 am Time in clinic ended at 10:00 am Total time in clinic is 45 minutes. Total timed code time is 40 minutes. Therapeutic exercise (19394): timed minutes 30, units 2 . UBE 3 min fwd. 1.0 level Pulleys: [address] pec stretches in door 2 x 30 sec each Midrows: new peace TT 15 x pulldowns: new PTT 15 x Shld add 0-60 PTT 12 x each Shlds ER / IR resistive Iso: PTT 15 x each each arm R UT stretches: 3 x 30 sec NT R Levator stretches: 3 x 30 sec NT added Lemperts maneuver to HEP. Manual Therapy (54154): timed minutes 10, units 1 . STM to rigjht Scalenes, Levator, UT suboccipital releases with gentle traction includes vestibular testing . 'Scores and Scales' Signatures Electronically signed by : Manish Kramer PT; May 04 2022 12:25PM EST (Author) Normal [facility] Office Visit (Formerly [facility])on 04-13-2022 Follow-up visit Diagnoses/Problems Assessed Personal history of COVID-19 (V12.09) (Z86.16) 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) Fatigue (780.79) (R53.83) Patient Discussion/Summary Frequency of visits: Return as needed for sx management; treatment recommendation may change depending on the severity and/or duration of symptoms. Diet/lifestyle suggestions: Drink enough water over the next few days Please feel free to contact me with any questions or concerns Please note: Dictation software was used while completing this note and may contain spelling, grammatical, and/or syntax errors. Please contact me with any questions. To clinicians, I am always happy to partner with you in the care of your patients. Do not hesitate to call the office or contact me directly regarding any further consultations or with questions regarding the plan of care outlined or patient progress. Chief Complaint cc: migraine History of Present Illness cc: migraine Patient continues to improve, stating that she feels so much better ; she rates her pain today as 3/10; she noted having 2 weeks of very low pain while she was on vacation in [place]; returning to [place], she is feeling a slight increase in pain due to the weather Her dizziness has improved with PT, and patient noted that she has her last PT visit in approximately 3 weeks She was also discharged from the COVID recovery clinic because of all of her positive progress, and was told to return if her symptoms worsen Initial intake (10/08/2021) Pt came in today seeking treatment for her chronic migraine as well as lingering COVID-19 symptoms; she was referred by Flower Nguyễn CNP, from the COVID recovery clinic; please refer to 's notes for more extensive details Patient was diagnosed with COVID 03/16; amongst her lingering symptoms, her main complaint is migraine; patient stated that the pain level varies in intensity throughout the day, though it is generally worse at the end of the day; she stated that she is sensitive to light and noise, and migraine episodes generally cause nausea, vomiting, lightheadedness, and disorientation; the pain is primarily on her right side; she rates her pain today as 4/10; patient reports having tried Emgality, Ajovy, and Ubrelvy She has been seen by a headache specialist at [facility], who diagnosed her with occipital neuralgia; she stated that she did 5 weeks of PT, and then plateaued ; the PT also attempted dry needling , which she found ineffective; she stated that she will be getting a second opinion with neurology next week; patient also visited a chiropractor in [place] who is a cervical specialist ; she was told that her neck was off by 3 degrees but after her adjustment she is now aligned Patient also complains of ongoing sleep issues, coughing diagnosed as reflux, mood swings, and fatigue and noted that she is getting a second opinion with neurology next week Active Problems Problems Body aches (780.96) (R52) Cognitive changes (799.59) (R41.89) Fatigue (780.79) (R53.83) Light headed (780.4) (R42) MYRIAM (obstructive sleep apnea) (327.23) (G47.33) Personal history of COVID-19 (V12.09) (Z86.16) 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) Vertigo (780.4) (R42) Personal history of COVID-19 (V12.09) (Z86.16) Migraines (346.90) (G43.909) 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) Personal history of COVID-19 (V12.09) (Z86.16) Migraines (346.90) (G43.909) 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) Migraines (346.90) (G43.909) 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) Migraines (346.90) (G43.909) Palpitations (785.1) (R00.2) Vertigo (780.4) (R42) Vertigo (780.4) (R42) Past Medical History Problems History of anxiety disorder (V11.8) (Z86.59) Resolved Date: 06 Apr 2022 History of depression (V11.8) (Z86.59) Resolved Date: 06 Apr 2022 History of palpitations (V12.59) (Z87.898) Resolved Date: 06 Apr 2022 History of Hypersomnolence (780.54) (G47.10) Resolved Date: 06 Apr 2022 History of MDD (major depressive disorder), recurrent episode (296.30) (F33.9) Resolved Date: 06 Apr 2022 History of Migraines (346.90) (G43.909) Resolved Date: 06 Apr 2022 History of Mild obstructive sleep apnea (327.23) (G47.33) Resolved Date: 06 Apr 2022 Surgical History Problems History of Appendectomy History of Colonoscopy History of Endoscopy History of Hysterectomy History of Oophorectomy bilateral History of Tonsillectomy with adenoidectomy History of Tubal ligation Family History Mother Family history of depression (V17.0) (Z81.8) mother with history of ECT tx Father Family history of Family history of congestive heart failure (V17.49) (Z82.49) Family history of malignant neoplasm of colon (V16.0) (Z80.0) Family history of Type 2 diabetes, diet controlled Sister Family history of depression ( (more content not included)... Normal [facility] PT Progress Noteon 2 PT Progress Note Therapy Diagnosis Assessed Vertigo (780.4) (R42) Plan 1 more visit in 3 weeks. Progress with POC, as tolerated. Assessment No dizziness with any change of position after second Adelaide's trial.. Patient would benefit from P.T. to continue to address impairments in order to improve vestibular function,strength, flexibility, posture, and body mechanics, and to decrease symptoms and increase overall function. Response to treatment: decreased pain, improved joint mobility/ROM, improved posture and improved knowledge and understanding of condition. Patient was able to complete today's treatment with some difficulty. Adult Risk Screening Initial Fall Risk Screening: FLAQUITA has not fallen in the last 6 months. FLAQUITA does not have a fear of falling. She does not need assistance with sitting, standing or walking. Does not need assistance walking in her home. She does not need assistance in an unfamiliar setting. The patient is not using an assistive device. Please identify location of pain: Right muscle tension headache. 10/10 at worst. Pain Quality: aching. Insurance Insurance reviewed Visit number: 5 Approved number of visits: 6 Authorization not required after evaluation Subjective Patient reports:. Reports her dizziness is still a lot better. Still occasional dizziness with sitting up that is very short-lived. Home program performing as directed: Yes. Precautions: Fall Risk: none History of Migraines. Objective Ortho positive Hallpike [place] for right ear horizontal BPPV. added Lemperts maneuver to HEP. Treatment Time in clinic started at 8:30 am Time in clinic ended at 9:15 am Total time in clinic is 45 minutes. Total timed code time is 40 minutes. Therapeutic exercise (28813): timed minutes 25, units 2 . UBE 3 min fwd. 1.0 level Pulleys: [address] pec stretches in door 2 x 30 sec each Midrows: new peace TT 15 x pulldowns: new peace TT 15 x Shld add 0-60 new peace TT 12 x each Shlds ER / IR resistive Iso: peace TT 15 x each each arm R UT stretches: 3 x 30 sec NT R Levator stretches: 3 x 30 sec NT added Lemperts maneuver to HEP. Manual Therapy (61752): timed minutes 15, units 1 . Lemperts maneuver 2x for right ear. includes vestibular testing . 'Scores and Scales' Signatures Electronically signed by : Manish Kramer PT; Apr 13 2022 9:26AM EST (Author) [facility] ( [facility])on 04-06-2022 SARS-CoV-2 (COVID-19) RNA NEHA+probe Ql (Unsp spec) Diagnoses/Problems Assessed Personal history of COVID-19 (V12.09) (Z86.16) 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) Orders SocHx: Never smoker Tobacco Use Screening; Status:Complete; Done: [id number] Perform:Not Applicable;Ordered; For:SocHx: Never smoker; Ordered By:Julita Acosta; Patient Discussion/Summary It was my pleasure seeing you in the COVID Recovery Clinic today. I am glad your symptoms have improved! Please continue your current recovery strategies and follow-up with us as needed. 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 Inocencio Rosado, Neurologist Dr. Wilmer Carrillo and TAMMI Crump and Dr. Villalta at [facility], Psychiatry Dr. Tejeda, [facility] Young, Psychology Cristóbal Garcia, Sleep Medicine Dr. Jimenez Survey scores: 09/2021 -> 03/2022 PHQ-9: 21 -> 7 CARL-7: 9 -> 3 Sleep Wellness: 9 snores -> 14 FSS average: 5.778 -> 2.778 Modified ECog average: 2.333 -> 2.167 MOCA: Overall Health: [age]yo female with h/o COVID-19 in February 2021, anxiety and depression, GERD, obesity, insomnia, migraines, occipital neuralgia, presents for follow-up at the [facility] Recovery Clinic reporting significant improvement in her post-COVID headaches, cognitive changes, vertigo, fatigue, anxiety and depression. Much improved overall Acupuncture most helpful Medications are helping as well Working with PT on vestibular rehab, going well, wishes she had done it sooner Has CPAP for the past month, wearing it nightly, sleeping better, no improvement in regards to energy during the day Meeting with marine mammal trainer twice per week to exercise [place] notices improvement on cognitive abilities Not 100% pain free, still 1-2/10, can still function, that helps with mood and energy levels Still has to pace herself, this is helpful Weather changes seem to affect her symptoms Relevant Hx: -05/2021 ED for headache and panic attack -07/2021 Neurology at [facility] for headaches suspects cervical paraspinal mm spasms as cause of right-sided occipital neuralgia that seems to be triggering recurrence of migrainous headaches with autonomic features, started gabapentin, future options include CHRISTELLE block or cervical facet block through pain management -09/2021 Neurology for second opinion regarding headaches, plan to titrate down Effexor and gabapentin, OK to resume Cymbalta, prescribed prednisone taper and 5-day course of ketorolac along with Qulipta -10/2021 [facility] recommended probiotic, mindfulness, bety chi, pacing, sleep hygiene, acupuncture -10/2021 Psychiatry increased Effexor, encouraged CBT -11/2021 Neurology notes significant improvement on Qulipta -12/2021 Sleep Medicine ordered Autopap and recommended weight loss -02/2022 Psychiatry notes improvement in anxiety and depression, continue treatment for at least 1 year before attempting titration -02/2022 PT vestibular rehab notes improvement Imaging: -03/2021 CXR clear -05/2021 MRI/MRV brain shows chronic age-related neurodegenerative changes, no acute findings -06/2021 CT C-spine shows mild vertebral malalighnment, disc space narrowing and degenerative changes, anterior epidural defects r/t posterior disc bulging in the lower thoracic and lumbar spine -09/2021 HSAT shows mild MYRIAM with O2 everette 82.3% -10/2021 quality assurance monitor final normal Blood work: -06/2021 spinal tap -08/2021 ferritin 50, iron studies, CBC/D with Hct 42.8%, TPO, thyroglobulin Antb -09/2021 CMP, Vitamin D 39, TSH, CRP, CBC/D with Hct 45.3%, ESR, Mag, Corisol, BACILIO, SPEP shows asymmetrical gamma, CCp Ab elevated, Tryptase, Vitamin B1, Vitamin B6 Exercise: 30 minutes twice per week Diet: Weight pre/post-COVID: 150/160 -> 165lbs -> 165lbs Substance use: denies Social: Family Hx: DM, CAD, rectal CA, HTN, depression Surgical Hx: hysterectomy 2001, squamous cell carcinoma 2020 Scores and Scales MOCA [id number] 12:46PM IF NO, USE SLUMS EXAM Visuospatial/ Executive (5) Naming (3) I have been Certified to use this cognitive screening instrument, via training on [email or web address].org.Yes Memory (0)0 Attention: Read List of Digits (2)2 Attention: Read List of Letters (1)1 Attention: Serial Sevens (3)3 Language: Repeat (2)1 Language: Fluency (1)0 Abstraction (2)2 Delayed Recall (5)4 Orientation (6)6 Total Score (30)19 Comments:Modified [place] Active Problems Problems Body aches (780.96) (R52) Cognitive changes (799.59) (R41.89) Fatigue (780.79) (R53.83) Light headed (780.4) (R42) MYRIAM (obstructive sleep apnea) (327.23) (G47.33) Personal history of COVID-19 (V12.09) (Z86.16) Post-acute sequelae of (more content not included)... Normal [facility] PT Progress Noteon 2 PT Progress Note Therapy Diagnosis Assessed History of vertigo (V12.49) (Z87.898) Plan Progress with POC, as tolerated. Assessment No dizziness with any change of position after second Adelaide's trial.. Patient would benefit from P.T. to continue to address impairments in order to improve vestibular function,strength, flexibility, posture, and body mechanics, and to decrease symptoms and increase overall function. Response to treatment: decreased pain, improved joint mobility/ROM, improved posture and improved knowledge and understanding of condition. Patient was able to complete today's treatment with some difficulty. Adult Risk Screening Initial Fall Risk Screening: FLAQUITA has not fallen in the last 6 months. FLAQUITA does not have a fear of falling. She does not need assistance with sitting, standing or walking. Does not need assistance walking in her home. She does not need assistance in an unfamiliar setting. The patient is not using an assistive device. Please identify location of pain: Right muscle tension headache. 10/10 at worst. Pain Quality: aching. Insurance Insurance reviewed Visit number: 4 Approved number of visits: 6 Authorization not required after evaluation Subjective Patient reports:. Reports her dizziness has been a lot better. Still occasional dizziness with sitting up that is very short-lived. Home program performing as directed: Partially. Precautions: Fall Risk: none History of Migraines. Objective Ortho positive Hallpike [place] for right ear BPPV Patient 20 mins late for session today. Treatment Time in clinic started at 9:25 am Time in clinic ended at 10:00 am Total time in clinic is 25 minutes. Total timed code time is 25 minutes. Manual Therapy (90986): timed minutes 25, units 2 . Adelaide's maneuver x 2 for right posterior canal BPPV. 'Scores and Scales' Signatures Electronically signed by : Manish Kramer, PT; Apr 06 2022 12:34PM EST (Author) Normal [email or web address] Tobacco Screening.on 022 Fall risk assessment a) No falls within the last year Rehab Services-[facility] Work Phone: Tobacco use status [facility] b) No [facility] Work Phone: Office Visit (Former[facility])on 03-11-2022 Follow-up visit Diagnoses/Problems Assessed Migraines (346.90) (G43.909) Patient Discussion/Summary Frequency of visits: Return as needed for sx management; treatment recommendation may change depending on the severity and/or duration of symptoms. Diet/lifestyle suggestions: Drink enough water over the next few days Please feel free to contact me with any questions or concerns Please note: Dictation software was used while completing this note and may contain spelling, grammatical, and/or syntax errors. Please contact me with any questions. To clinicians, I am always happy to partner with you in the care of your patients. Do not hesitate to call the office or contact me directly regarding any further consultations or with questions regarding the plan of care outlined or patient progress. Chief Complaint cc: migraine History of Present Illness cc: migraine Patient stated that she is doing well overall She rates her headache as 3/10 today; she also noted that her dizziness has improved Patient stated that she had a tough week, activity ibarra , and notes that she is feeling exhausted She has also started using her CPAP since her last visit, and is still adjusting to it Patient saw her PCP yesterday and has been switched to Nexium 40 mg; she will be starting that med today Initial intake (10/08/2021) Pt came in today seeking treatment for her chronic migraine as well as lingering COVID-19 symptoms; she was referred by Flower Nguyễn CNP, from the COVID recovery clinic; please refer to 's notes for more extensive details Patient was diagnosed with COVID 03/16; amongst her lingering symptoms, her main complaint is migraine; patient stated that the pain level varies in intensity throughout the day, though it is generally worse at the end of the day; she stated that she is sensitive to light and noise, and migraine episodes generally cause nausea, vomiting, lightheadedness, and disorientation; the pain is primarily on her right side; she rates her pain today as 4/10; patient reports having tried Emgality, Ajovy, and Ubrelvy She has been seen by a headache specialist at [facility], who diagnosed her with occipital neuralgia; she stated that she did 5 weeks of PT, and then plateaued ; the PT also attempted dry needling , which she found ineffective; she stated that she will be getting a second opinion with neurology next week; patient also visited a chiropractor in [place] who is a cervical specialist ; she was told that her neck was off by 3 degrees but after her adjustment she is now aligned Patient also complains of ongoing sleep issues, coughing diagnosed as reflux, mood swings, and fatigue and noted that she is getting a second opinion with neurology next week Active Problems Problems Anxiety disorder, unspecified (300.00) (F41.9) Body aches (780.96) (R52) Cognitive changes (799.59) (R41.89) Depression (311) (F32.A) Fatigue (780.79) (R53.83) Hypersomnolence (780.54) (G47.10) Light headed (780.4) (R42) MDD (major depressive disorder), recurrent episode (296.30) (F33.9) Migraines (346.90) (G43.909) Mild obstructive sleep apnea (327.23) (G47.33) MYRIAM (obstructive sleep apnea) (327.23) (G47.33) Palpitations (785.1) (R00.2) Personal history of COVID-19 (V12.09) (Z86.16) 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) Vertigo (780.4) (R42) Personal history of COVID-19 (V12.09) (Z86.16) Migraines (346.90) (G43.909) 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) Personal history of COVID-19 (V12.09) (Z86.16) Migraines (346.90) (G43.909) 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 No Known Drug Allergies Recorded By: Ashley Key; 10/06/2021 1:19:30 PM Current Meds Medication NameInstruction Ativan 0.5 MG Oral TabletTAKE 1 TABLET DAILY NEEDED. Azelastine HCl - 137 MCG/SPRAY Nasal Solution Calcium + D TABS Lunesta 3 MG Oral TabletTAKE 1 TABLET AT BEDTIME. Magnesium TABS MSM CAPS Niacinamide 500 MG Oral TabletTAKE 1 TABLET DAILY DIRECTED. predniSONE 10 MG Oral TabletTake 60MG PO dailyX 2 days,50MG PO dailyx 2 days, 40MG PO dailyx 2 days, 30MG PO daily X2days, 20MG PO daily x2days,10MG PO x2 days Qulipta 60 MG Oral TabletTake one Tablet daily with our without food RABEprazole Sodium 20 MG Oral Tablet Delayed Release Venlafaxine HCl ER 150 MG Oral Capsule Extended Release 24 (more content not included)... Normal [facility] PT Progress Noteon 2 PT Progress Note Therapy Diagnosis Assessed Vertigo (780.4) (R42) Plan Progress with POC, as tolerated. Assessment No dizziness with any change of position today. C1 thru C4 FRSR. all corrected with METs decreased tone right UT, Levator, SCM, Suboccipitals, Scalenes after manual therapy with improved cervical AROM. Patient would benefit from P.T. to continue to address impairments in order to improve vestibular function,strength, flexibility, posture, and body mechanics, and to decrease symptoms and increase overall function. Response to treatment: decreased pain, improved joint mobility/ROM, improved posture and improved knowledge and understanding of condition. Adult Risk Screening Initial Fall Risk Screening: FLAQUITA has not fallen in the last 6 months. FLAQUITA does not have a fear of falling. She does not need assistance with sitting, standing or walking. Does not need assistance walking in her home. She does not need assistance in an unfamiliar setting. The patient is not using an assistive device. Please identify location of pain: Right muscle tension headache. 10/10 at worst. Pain Quality: aching. Insurance Insurance reviewed Visit number: 3 Approved number of visits: 6 Authorization not required after evaluation Subjective Patient reports:. Reports her dizziness has been a lot better. 2/10 right sided headache today, but that has become much better. Home program performing as directed: Partially. Precautions: Fall Risk: none History of Migraines. Objective Ortho C1 thru C4 FRSR. increased tone right UT, Levator, SCM, Suboccipitals, Scalenes. Negative Hallpike [place] for left posterior BPPV. Issued HEP: 3 way pec stretches in the doorway, mid-rows, pull-downs, and shoulder reactive IR and ER isometrics. Treatment Time in clinic started at 8:30 am Time in clinic ended at 9:15 am Total time in clinic is 45 minutes. Total timed code time is 40 minutes. Therapeutic exercise (59522): timed minutes 25, units 2 . Pulleys: [address] pec stretches in door 2 x 30 sec each Midrows: PTT 12 x pulldowns: PTT 12 x Shlds ER / IR resistive Iso: PTT 10 x each each arm R UT stretches: 3 x 30 sec R Levator stretches: 3 x 30 sec. Manual Therapy (46305): timed minutes 15, units 1 . C1 thru C4 FRSR. corrections with METs STM right UT, Levator, SCM, Suboccipitals, Scalenes. 'Scores and Scales' Signatures Electronically signed by : Manish Kramer PT; Mar 11 2022 9:34AM EST (Author) Normal [facility] Office Visit (Formerly [facility])on 03-04-2022 Follow-up visit Diagnoses/Problems Assessed Migraines (346.90) (G43.909) Personal history of COVID-19 (V12.09) (Z86.16) 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) Patient Discussion/Summary Frequency of visits: Return as needed for sx management; treatment recommendation may change depending on the severity and/or duration of symptoms. Diet/lifestyle suggestions: Drink enough water over the next few days Please feel free to contact me with any questions or concerns Please note: Dictation software was used while completing this note and may contain spelling, grammatical, and/or syntax errors. Please contact me with any questions. To clinicians, I am always happy to partner with you in the care of your patients. Do not hesitate to call the office or contact me directly regarding any further consultations or with questions regarding the plan of care outlined or patient progress. Chief Complaint cc: migraine History of Present Illness cc: migraine Patient stated that her head has been improving ; she noted that she has more days where she feels better than days where she feels worse; she is not 100% pain-free , but has made significant improvements She has resumed taking Q lift, noting that she is having no adverse side effects She also described her vertigo as better , though she still occasionally has dizzy spells; patient stated when she performs exercises given by her PT the vertigo resolves Initial intake (10/08/2021) Pt came in today seeking treatment for her chronic migraine as well as lingering COVID-19 symptoms; she was referred by Flower Nguyễn CNP, from the COVID recovery clinic; please refer to 's notes for more extensive details Patient was diagnosed with COVID 03/16; amongst her lingering symptoms, her main complaint is migraine; patient stated that the pain level varies in intensity throughout the day, though it is generally worse at the end of the day; she stated that she is sensitive to light and noise, and migraine episodes generally cause nausea, vomiting, lightheadedness, and disorientation; the pain is primarily on her right side; she rates her pain today as 4/10; patient reports having tried Emgality, Ajovy, and Ubrelvy She has been seen by a headache specialist at [facility], who diagnosed her with occipital neuralgia; she stated that she did 5 weeks of PT, and then plateaued ; the PT also attempted dry needling , which she found ineffective; she stated that she will be getting a second opinion with neurology next week; patient also visited a chiropractor in [place] who is a cervical specialist ; she was told that her neck was off by 3 degrees but after her adjustment she is now aligned Patient also complains of ongoing sleep issues, coughing diagnosed as reflux, mood swings, and fatigue and noted that she is getting a second opinion with neurology next week Active Problems Problems Anxiety disorder, unspecified (300.00) (F41.9) Body aches (780.96) (R52) Cognitive changes (799.59) (R41.89) Depression (311) (F32.A) Fatigue (780.79) (R53.83) Hypersomnolence (780.54) (G47.10) Light headed (780.4) (R42) MDD (major depressive disorder), recurrent episode (296.30) (F33.9) Migraines (346.90) (G43.909) Mild obstructive sleep apnea (327.23) (G47.33) MYRIAM (obstructive sleep apnea) (327.23) (G47.33) Palpitations (785.1) (R00.2) Personal history of COVID-19 (V12.09) (Z86.16) 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) Vertigo (780.4) (R42) Personal history of COVID-19 (V12.09) (Z86.16) Migraines (346.90) (G43.909) 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) Personal history of COVID-19 (V12.09) (Z86.16) Migraines (346.90) (G43.909) 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 No Known Drug Allergies Recorded By: Ashley Key; 10/06/2021 1:19:30 PM Current Meds Medication NameInstruction Ativan 0.5 MG Oral TabletTAKE 1 TABLET DAILY NEEDED. Azelastine HCl - 137 MCG/SPRAY Nasal Solution Calcium + D TABS Lunesta 3 MG Oral TabletTAKE 1 TABLET AT BEDTIME. Magnesium TABS MSM CAPS Niacinamide 500 MG Oral TabletTAKE 1 TABLET DAILY DIRECTED. predniSONE 10 MG Oral TabletTake 60MG PO dailyX 2 days,50MG PO dailyx 2 days, 40MG PO dailyx 2 days, 30MG PO daily X2days, 20MG PO daily x2days,10MG PO x2 days Qulipta 60 MG Oral TabletTake one Tablet daily (more content not included)... Normal [facility] PT Progress Noteon 2 PT Progress Note Therapy Diagnosis Assessed Vertigo (780.4) (R42) Plan Progress with POC, as tolerated. Assessment No dizziness with any change of position with second Adelaide's maneuver. O/A FSL, C1 thru C4 FRSR. all corrected with METs decreased tone right UT, Levator, SCM, Suboccipitals, Scalenes after manual therapy with improved cervical AROM. Patient would benefit from P.T. to continue to address impairments in order to improve vestibular function,strength, flexibility, posture, and body mechanics, and to decrease symptoms and increase overall function. Response to treatment: decreased pain, improved joint mobility/ROM, improved posture and improved knowledge and understanding of condition. Adult Risk Screening Initial Fall Risk Screening: FLAQUITA has not fallen in the last 6 months. FLAQUITA does not have a fear of falling. She does not need assistance with sitting, standing or walking. Does not need assistance walking in her home. She does not need assistance in an unfamiliar setting. The patient is not using an assistive device. Please identify location of pain: Right muscle tension headache. 10/10 at worst. Pain Quality: aching. Insurance Insurance reviewed Visit number: 2 Approved number of visits: 6 Authorization not required after evaluation Subjective Patient reports:. Reports her dizziness has been a lot better. 2/10 headache today, but that has become much better. Home program performing as directed: Partially. Precautions: Fall Risk: none History of Migraines. Objective Ortho O/A FSL, C1 thru C4 FRSR. increased tone right UT, Levator, SCM, Suboccipitals, Scalenes. Positive Hallpike [place] for left posterior BPPV. Added right UT stretches to HEP. Treatment Time in clinic started at 8:30 am Time in clinic ended at 9:05 am Total time in clinic is 35 minutes. Total timed code time is 30 minutes. Manual Therapy (14112): timed minutes 30, units 2 . Adelaide's maneuver 2 trials for left BPPV. O/A FSL, C1 thru C4 FRSR. corrections with METs STM right UT, Levator, SCM, Suboccipitals, Scalenes. 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) Orders Anxiety disorder, unspecified, MDD (major depressive disorder), recurrent episode, Post-acute sequelae of COVID-19 (PASC) Renew: Venlafaxine HCl ER 150 MG Oral Capsule Extended Release 24 Hour (Effexor XR); TAKE ONE CAPSULE BY MOUTH DAILY Patient Discussion/Summary Plan - continue effexor ER 150mg 1 cap PO QAM refilled 30 day supply 4 refills - Follow up with physical health providers as scheduled - Patient encouraged to follow up with individual therapy (CBT) as scheduled - Follow up Friday June 03, 2022 at 11am virtual with this policy writer typist - May follow up sooner if experiences worsening symptoms by calling Psychiatry at - Patient verbalized an understanding to call [facility] at ([facility]), 211, or 911/go to the nearest emergency room if experiences thoughts of harm to self or others. Medication: venlafaxine ER. Medication Consent:. Risks, benefits, and potential side effects were reviewed. Patient/Guardian Consent:. Patient expressed understanding and consent obtained. Provider Impressions MDD/anxiety unspecified, post acute sequelae of COVID infection probable CARL Stable. Patient is being seen for follow up for MDD/unspecified anxiety with post acute sequelae of COVID infection and she reports managing her mood/anxiety/pain issues better with the use of medications, following up with her physical health providers/individual therapist, and improved self care activities. She denies any substance use. Plan discussed to continue effexor ER 150mg at the current dose. discussed recommendation is to achieve symptom stability for 1 year prior to discussing any titrating off the medication, which she verbalizes an understanding. She is encouraged to keep following up with her individual therapist and physical health provider appointments as scheduled. Imminent risk of harm to self or others at this time is low. Protective factors include family/responsibilities and patient's motivation to get better. Chief Complaint An interactive audio and video telecommunication system which permits real time communications between the patient (at the originating site) and provider (at the distant site) was utilized to provide this telehealth service. Verbal consent was requested and obtained from FLAQUITA ROBERTSON on this date, 03/02/2022 09:30 AM , for a telehealth visit. Start Time: 930 End Time: 951 Duration: 21 minutes Patient identified by name, , and address. CC: it's going well History of Present Illness Patient is being seen for follow up for MDD/anxiety unspecified, post acute sequelae of COVID infection last seen November 12, 2021. Patient states it's going well. Patient states things are improving. She is still waiting for her first pain free day, but instead of her pain ranging from an 8-10, her highs currently are around 5-6, which she states is much improved . She is having more energy, has some days she can tackle quite a few projects, but the following day she pays for it. Overall, things are going much better. Her mental health is a work in progress. She is meeting with her therapist weekly and loves it. They have been discussing trauma starting from her childhood to present and reviewing current things that are brewing . She has been learning new tools to help her handle things that are bothering her. Patient feels her depression/anxiety have been manageable. If her pain gets to the 5-6 range, she finds herself getting frustrated, but overall she feels that has been better. Mindfulness has been helpful where she identifies she is always tense, which she feels resulted from when her passed. She is working on trying to figure out how to release/relax. Sleep is a work in progress . She has started using a CPAP machine this past week, where she has used it twice. Patient is totaling about 8 hours of sleep, but it is in increments, so she hopes the CPAP helps her get more hours at the same time. Her energy levels are hit or miss , but overall she feels it is improved. Patient states her appetite remains the same/good, but she is still trying to lose some weight. She is meeting with a color strainer once a week and this week she is increasing to twice a week. Patient has found she enjoys water aerobics so she is trying to get to a class weekly. She has also found she enjoys knitting and she has been connecting more with her sister over it by texting. She denies any issues with SI/HI/psychotic or elevated mood symptoms. Patient denies any substance use. She is taking the venlafaxine 150mg daily as scheduled and she denies any side effectgs. Patient has been curious about decreasing her venlafaxine as she is feeling good at this time, so she is not sure if she should leave the medication the same (more content not included)... 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 Diet/lifestyle suggestions: Drink enough water over the next few days Please feel free to contact me with any questions or concerns Please note: Dictation software was used while completing this note and may contain spelling, grammatical, and/or syntax errors. Please contact me with any questions. To clinicians, I am always happy to partner with you in the care of your patients. Do not hesitate to call the office or contact me directly regarding any further consultations or with questions regarding the plan of care outlined or patient progress. Chief Complaint cc: migraine History of Present Illness cc: migraine Patient stated that her head pain is currently 3/10, and is experiencing some mild vertigo She noted that her GI issues may have been caused by Qulipta; she has been taking it for approximately 4 months, and has not taken it for 1 week and is noticing a difference Patient leaves tomorrow on vacation for 1 week in [place] Initial intake (10/08/2021) Pt came in today seeking treatment for her chronic migraine as well as lingering COVID-19 symptoms; she was referred by Flower Nguyễn CNP, from the COVID recovery clinic; please refer to 's notes for more extensive details Patient was diagnosed with COVID 03/16; amongst her lingering symptoms, her main complaint is migraine; patient stated that the pain level varies in intensity throughout the day, though it is generally worse at the end of the day; she stated that she is sensitive to light and noise, and migraine episodes generally cause nausea, vomiting, lightheadedness, and disorientation; the pain is primarily on her right side; she rates her pain today as 4/10; patient reports having tried Emgality, Ajovy, and Ubrelvy She has been seen by a headache specialist at [facility], who diagnosed her with occipital neuralgia; she stated that she did 5 weeks of PT, and then plateaued ; the PT also attempted dry needling , which she found ineffective; she stated that she will be getting a second opinion with neurology next week; patient also visited a chiropractor in [place] who is a cervical specialist ; she was told that her neck was off by 3 degrees but after her adjustment she is now aligned Patient also complains of ongoing sleep issues, coughing diagnosed as reflux, mood swings, and fatigue and noted that she is getting a second opinion with neurology next week *Active Problems Problems Anxiety disorder, unspecified (300.00) (F41.9) Body aches (780.96) (R52) Cognitive changes (799.59) (R41.89) Depression (311) (F32.A) Fatigue (780.79) (R53.83) Hypersomnolence (780.54) (G47.10) Light headed (780.4) (R42) MDD (major depressive disorder), recurrent episode (296.30) (F33.9) Mild obstructive sleep apnea (327.23) (G47.33) MYRIAM (obstructive sleep apnea) (327.23) (G47.33) Palpitations (785.1) (R00.2) Personal history of COVID-19 (V12.09) (Z86.16) Migraines (346.90) (G43.909) 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) Personal history of COVID-19 (V12.09) (Z86.16) Migraines (346.90) (G43.909) 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 No Known Drug Allergies Recorded By: Ashley Key; 10/06/2021 1:19:30 PM Current Meds Medication NameInstruction Ativan 0.5 MG Oral TabletTAKE 1 TABLET DAILY NEEDED. Azelastine HCl - 137 MCG/SPRAY Nasal Solution Calcium + D TABS Lunesta 3 MG Oral TabletTAKE 1 TABLET AT BEDTIME. Magnesium TABS MSM CAPS Niacinamide 500 MG Oral TabletTAKE 1 TABLET DAILY DIRECTED. predniSONE 10 MG Oral TabletTake 60MG PO dailyX 2 days,50MG PO dailyx 2 days, 40MG PO dailyx 2 days, 30MG PO daily X2days, 20MG PO daily x2days,10MG PO x2 days Qulipta 60 MG Oral TabletTake one Tablet daily with our without food RABEprazole Sodium 20 MG Oral Tablet Delayed Release Venlafaxine HCl ER 150 MG Oral Capsule Extended Release 24 HourTAKE ONE CAPSULE BY MOUTH DAILY ZyrTEC Allergy 10 MG Oral TabletTAKE 1 TABLET DAILY NEEDED. Physical Exam Patient had a negative entrance screeni (more content not included)... 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 Diet/lifestyle suggestions: Drink enough water over the next few days Please feel free to contact me with any questions or concerns Please note: Dictation software was used while completing this note and may contain spelling, grammatical, and/or syntax errors. Please contact me with any questions. To clinicians, I am always happy to partner with you in the care of your patients. Do not hesitate to call the office or contact me directly regarding any further consultations or with questions regarding the plan of care outlined or patient progress. Chief Complaint cc: migraine History of Present Illness cc: migraine Patient stated that her head pain is currently low , rating it 3/10 She noted that her vertigo is not so good ; she saw vestibular PT, noting that it went fine ; the PT found issues on her right side; she will be seeing PT 1 time per week for 6 weeks She also noted that her GI symptoms have improved since her last visit Initial intake (10/08/2021) Pt came in today seeking treatment for her chronic migraine as well as lingering COVID-19 symptoms; she was referred by Flower Nguyễn CNP, from the COVID recovery clinic; please refer to 's notes for more extensive details Patient was diagnosed with COVID 03/16; amongst her lingering symptoms, her main complaint is migraine; patient stated that the pain level varies in intensity throughout the day, though it is generally worse at the end of the day; she stated that she is sensitive to light and noise, and migraine episodes generally cause nausea, vomiting, lightheadedness, and disorientation; the pain is primarily on her right side; she rates her pain today as 4/10; patient reports having tried Emgality, Ajovy, and Ubrelvy She has been seen by a headache specialist at [facility], who diagnosed her with occipital neuralgia; she stated that she did 5 weeks of PT, and then plateaued ; the PT also attempted dry needling , which she found ineffective; she stated that she will be getting a second opinion with neurology next week; patient also visited a chiropractor in [place] who is a cervical specialist ; she was told that her neck was off by 3 degrees but after her adjustment she is now aligned Patient also complains of ongoing sleep issues, coughing diagnosed as reflux, mood swings, and fatigue and noted that she is getting a second opinion with neurology next week Active Problems Problems Anxiety disorder, unspecified (300.00) (F41.9) Body aches (780.96) (R52) Cognitive changes (799.59) (R41.89) Depression (311) (F32.A) Fatigue (780.79) (R53.83) Hypersomnolence (780.54) (G47.10) Light headed (780.4) (R42) MDD (major depressive disorder), recurrent episode (296.30) (F33.9) Migraines (346.90) (G43.909) Mild obstructive sleep apnea (327.23) (G47.33) MYRIAM (obstructive sleep apnea) (327.23) (G47.33) Palpitations (785.1) (R00.2) Personal history of COVID-19 (V12.09) (Z86.16) 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) Vertigo (780.4) (R42) Personal history of COVID-19 (V12.09) (Z86.16) Migraines (346.90) (G43.909) 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 No Known Drug Allergies Recorded By: Ashley Key; 10/06/2021 1:19:30 PM Current Meds Medication NameInstruction Ativan 0.5 MG Oral TabletTAKE 1 TABLET DAILY NEEDED. Azelastine HCl - 137 MCG/SPRAY Nasal Solution Calcium + D TABS Lunesta 3 MG Oral TabletTAKE 1 TABLET AT BEDTIME. Magnesium TABS MSM CAPS Niacinamide 500 MG Oral TabletTAKE 1 TABLET DAILY DIRECTED. predniSONE 10 MG Oral TabletTake 60MG PO dailyX 2 days,50MG PO dailyx 2 days, 40MG PO dailyx 2 days, 30MG PO daily X2days, 20MG PO daily x2days,10MG PO x2 days Qulipta 60 MG Oral TabletTake one Tablet daily with our without food RABEprazole Sodium 20 MG Oral Tablet Delayed Release Venlafaxine HCl ER 150 MG Oral Capsule Extended Release 24 HourTAKE ONE CAPSULE BY MOUTH DAILY ZyrTEC Allergy 10 MG Oral TabletTAKE 1 TABLET DAILY NEEDED. Physical Exam Patient had a negative entrance screening in (more content not included)... Normal [facility] PT Initial Evaluationon 10- PT Initial Evaluation Therapy Diagnosis Assessed Vertigo (780.4) (R42) Plan of Care Goals: Goals set and discussed today. By discharge FLAQUITA ROBERTSON will achieve the following goals: 1) Patient will report a 90 % improvement in dizziness with any change of position. 2) Patient's cervical AROM Rotation will improve to at least 65 degrees, and Sidebending will improve to at least 35 degrees bilaterally. 3) Patient will be independent with home program in order to advance function while at home. 4) Patient will report no more than 2/10 headache at 2 consecutive visits. 5) Patient will sit and stand with improved head and shoulder posture to decrease strain on cervical spine and improve vestibular function. Planned interventions include: canalith repositioning, cryotherapy, dry needling, education/instruction, electrical stimulation, gait training, home program, hot pack, kinesiotaping, manual therapy, mechanical traction, neuromuscular re-education, therapeutic activities, therapeutic exercises, ultrasound and vasopneumatic device w/ cold. Frequency and duration: 1 time(s) a week, for 6 weeks, for 6 visits. Potential to achieve rehab goals is good Plan of care was developed with input and agreement by the patient. Assessment Right ear posterior canal BPPV with testing today, possible horizontal canal, as well. No dizziness with any change of position following two trials of Adelaide's maneuver. Patient would benefit from P.T. to address impairments in order to improve vestibular function, flexibility, posture, and body mechanics, to decrease headache symptoms and increase overall function. Interdisciplinary Team Communication: Physical Therapy and MD . Clinical Presentation: Stable and/or uncomplicated characteristics. Level of Complexity: low Problem List: activity limitations, decreased functional level, decreased knowledge of HEP, dizziness/vertigo, flexibility, pain, posture, range of motion/joint mobility, sensory and strength. Reason For Visit Initial Evaluation . Patient is a 66 y/o female, who presented to the clinic today for a Physical therapy evaluation, with complaints of dizziness, nausea, and headaches, that began in February of last year, after being diagnosed with COVID. Referred by: Flower Nguyễn, [employer]LECT[employer]STRUCTION PROJECT MANAGER Adult Risk Screening Initial Fall Risk Screening: FLAQUITA has not fallen in the last 6 months. FLAQUITA does not have a fear of falling. She does not need assistance with sitting, standing or walking. Does not need assistance walking in her home. She does not need assistance in an unfamiliar setting. The patient is not using an assistive device. Pain Scale: On a scale of 0 to 10, the patient rates the pain at 5. Please identify location of pain: Right muscle tension headache. 10/10 at worst. Pain Quality: aching. Insurance Insurance reviewed Visit number: 1 Approved number of visits: 6 Authorization not required after evaluation Subjective Current Episode of Functional Impairment and/or Pain Date of onset: 02-24-2021 Mechanism of Injury: insidious onset . Patient reports right headache 5/10 pain levels at rest and 10/10 at worst. Describes pain as intense ache. Light and noise sensitive, . Pain Exacerbating Factors: repetitive motion . Light and noise sensitive. Pain Relieving Factors: rest, over the counter medication and lying. Precautions: Fall Risk: none History of Migraines. Functional Assessment Prior level of function: Independent. Functional limitations: work related responsibilities , participation in hobbies , sitting up from supine, participation in leisure activities and participation in home management . Dominant Hand: right. Exercise: She does not exercise. Patient stated goal(s) for treatment include:. Help with my dizziness and headaches. . 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 Current Status: unchanged. Patient Awareness: Patient is aware of her diagnosis and prognosis. Living Environment: multi-story home and stairs with rails. Social Support: lives with spouse. Objective Ortho Forward bend test: veer to right Hallpike-Luis Miguel Down right: upward rotational nystagmus Hallpike-[place] Down left: negative Hallpike-Luis Miguel Up right: horizontal nystagmus to right Hallpike-[place] Up left: right horizontal nystagmus Head turns Right: dizziness without nystagmus Head turns Left: dizziness without nystagmus Eye movement Right normal tracking, Left, Superior, Inferior nys with return. Cervical AROM: Flexion,32 Extension 48, Sidebending R. 31 L.42 Rotation R. decreased L. Palpation:increased tone right SCM, Suboccipitals, Scalenes. Treatment Time in clinic started at 9:15 am Time in clinic ended at 10:00 am Total time in clinic is 45 minutes. Total timed code time is 0 minutes. Treatment Performed Today:. Adelaide's maneuver x 2 for right posterior canal. Issued HEP: side-lying to each side 3x for 30 seconds with 30 second sit between 3 right then 3 left, Nodding (more content not included)... 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 Treatment recommendation may change depending on the severity and/or duration of symptoms. Diet/lifestyle suggestions: Drink enough water over the next few days Please feel free to contact me with any questions or concerns Please note: Dictation software was used while completing this note and may contain spelling, grammatical, and/or syntax errors. Please contact me with any questions. To clinicians, I am always happy to partner with you in the care of your patients. Do not hesitate to call the office or contact me directly regarding any further consultations or with questions regarding the plan of care outlined or patient progress. Chief Complaint cc: migraine History of Present Illness cc: migraine Patient stated that her migraines have been so much better ; she noted having more days with less pain, rating today is 2/10 She is experiencing slight vertigo today, though has noticed improvement; she has vestibular testing on Wednesday She also noted that her GI symptoms have begun to improve somewhat; she still experiencing nausea and reflux but cannot find any pattern, i.e. food; patient is taking omeprazole, but she is unsure if it is still effective Initial intake (10/08/2021) Pt came in today seeking treatment for her chronic migraine as well as lingering COVID-19 symptoms; she was referred by Flower Nguyễn CNP, from the COVID recovery clinic; please refer to 's notes for more extensive details Patient was diagnosed with COVID 03/16; amongst her lingering symptoms, her main complaint is migraine; patient stated that the pain level varies in intensity throughout the day, though it is generally worse at the end of the day; she stated that she is sensitive to light and noise, and migraine episodes generally cause nausea, vomiting, lightheadedness, and disorientation; the pain is primarily on her right side; she rates her pain today as 4/10; patient reports having tried Emgality, Ajovy, and Ubrelvy She has been seen by a headache specialist at [facility], who diagnosed her with occipital neuralgia; she stated that she did 5 weeks of PT, and then plateaued ; the PT also attempted dry needling , which she found ineffective; she stated that she will be getting a second opinion with neurology next week; patient also visited a chiropractor in [place] who is a cervical specialist ; she was told that her neck was off by 3 degrees but after her adjustment she is now aligned Patient also complains of ongoing sleep issues, coughing diagnosed as reflux, mood swings, and fatigue and noted that she is getting a second opinion with neurology next week Active Problems Problems Anxiety disorder, unspecified (300.00) (F41.9) Body aches (780.96) (R52) Cognitive changes (799.59) (R41.89) Depression (311) (F32.A) Fatigue (780.79) (R53.83) Hypersomnolence (780.54) (G47.10) Light headed (780.4) (R42) MDD (major depressive disorder), recurrent episode (296.30) (F33.9) Migraines (346.90) (G43.909) Mild obstructive sleep apnea (327.23) (G47.33) MYRIAM (obstructive sleep apnea) (327.23) (G47.33) Palpitations (785.1) (R00.2) Personal history of COVID-19 (V12.09) (Z86.16) 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) Vertigo (780.4) (R42) Personal history of COVID-19 (V12.09) (Z86.16) Migraines (346.90) (G43.909) 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 No Known Drug Allergies Recorded By: Ashley Key; 10/06/2021 1:19:30 PM Current Meds Medication NameInstruction Ativan 0.5 MG Oral TabletTAKE 1 TABLET DAILY NEEDED. Azelastine HCl - 137 MCG/SPRAY Nasal Solution Calcium + D TABS Lunesta 3 MG Oral TabletTAKE 1 TABLET AT BEDTIME. Magnesium TABS MSM CAPS Niacinamide 500 MG Oral TabletTAKE 1 TABLET DAILY DIRECTED. predniSONE 10 MG Oral TabletTake 60MG PO dailyX 2 days,50MG PO dailyx 2 days, 40MG PO dailyx 2 days, 30MG PO daily X2days, 20MG PO daily x2days,10MG PO x2 days Qulipta 60 MG Oral TabletTake one Tablet daily with our without food RABEprazole Sodium 20 MG Oral Tablet Delayed Release Venlafaxine HCl ER 150 MG Oral Capsule Extende (more content not included)... Normal [facility] Chart Updateon 01-27-2022 Chart Update Diagnoses/Problems Vertigo (780.4) (R42) Orders Vertigo Physical Therapy - Vestibular Referral Evaluation and Treatment Evaluate AND Treat Status: Hold For - Scheduling Requested for: 27Jan2022 Ordered;For: Vertigo; Ordered By: Flower Nguyễn Performed: Due: [id number] Chart Update Patient requests referral to PT for vestibular rehab to address vertigo Signatures Electronically signed by : JOSSE Cardona; Jan 27 2022 6:04AM EST (Author) Normal [facility] Office Visit (Formerly [facility])on 01-27-2022 Follow-up visit Diagnoses/Problems Assessed Migraines (346.90) (G43.909) Personal history of COVID-19 (V12.09) (Z86.16) 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 Treatment recommendation may change depending on the severity and/or duration of symptoms. Diet/lifestyle suggestions: Drink enough water over the next few days Please feel free to contact me with any questions or concerns Please note: Dictation software was used while completing this note and may contain spelling, grammatical, and/or syntax errors. Please contact me with any questions. To clinicians, I am always happy to partner with you in the care of your patients. Do not hesitate to call the office or contact me directly regarding any further consultations or with questions regarding the plan of care outlined or patient progress. Chief Complaint cc: migraine History of Present Illness cc: migraine Patient stated that she felt like she was still on the struggle bus over the weekend, though she noted her pain began to improve yesterday and is feeling okay today; she rates her migraine pain 2/10 today She noted that the most prevalent issue today is her vertigo Patient has begun a knitting project, which she is enjoying, but is noting some difficulty with continued brain fog and cognitive function Initial intake (10/08/2021) Pt came in today seeking treatment for her chronic migraine as well as lingering COVID-19 symptoms; she was referred by Flower Nguyễn CNP, from the COVID recovery clinic; please refer to 's notes for more extensive details Patient was diagnosed with COVID 03/16; amongst her lingering symptoms, her main complaint is migraine; patient stated that the pain level varies in intensity throughout the day, though it is generally worse at the end of the day; she stated that she is sensitive to light and noise, and migraine episodes generally cause nausea, vomiting, lightheadedness, and disorientation; the pain is primarily on her right side; she rates her pain today as 4/10; patient reports having tried Emgality, Ajovy, and Ubrelvy She has been seen by a headache specialist at [facility], who diagnosed her with occipital neuralgia; she stated that she did 5 weeks of PT, and then plateaued ; the PT also attempted dry needling , which she found ineffective; she stated that she will be getting a second opinion with neurology next week; patient also visited a chiropractor in [place] who is a cervical specialist ; she was told that her neck was off by 3 degrees but after her adjustment she is now aligned Patient also complains of ongoing sleep issues, coughing diagnosed as reflux, mood swings, and fatigue and noted that she is getting a second opinion with neurology next week *Active Problems Problems Anxiety disorder, unspecified (300.00) (F41.9) Body aches (780.96) (R52) Cognitive changes (799.59) (R41.89) Depression (311) (F32.A) Fatigue (780.79) (R53.83) Hypersomnolence (780.54) (G47.10) Light headed (780.4) (R42) MDD (major depressive disorder), recurrent episode (296.30) (F33.9) Mild obstructive sleep apnea (327.23) (G47.33) MYRIAM (obstructive sleep apnea) (327.23) (G47.33) Palpitations (785.1) (R00.2) Vertigo (780.4) (R42) Personal history of COVID-19 (V12.09) (Z86.16) Migraines (346.90) (G43.909) 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 No Known Drug Allergies Recorded By: Ashley Key; 10/06/2021 1:19:30 PM Current Meds Medication NameInstruction Ativan 0.5 MG Oral TabletTAKE 1 TABLET DAILY NEEDED. Azelastine HCl - 137 MCG/SPRAY Nasal Solution Calcium + D TABS Lunesta 3 MG Oral TabletTAKE 1 TABLET AT BEDTIME. Magnesium TABS MSM CAPS Niacinamide 500 MG Oral TabletTAKE 1 TABLET DAILY DIRECTED. predniSONE 10 MG Oral TabletTake 60MG PO dailyX 2 days,50MG PO dailyx 2 days, 40MG PO dailyx 2 days, 30MG PO daily X2days, 20MG PO daily x2days,10MG PO x2 days Qulipta 60 MG Oral TabletTake one Tablet daily with our without food RABEprazole Sodium 20 MG Oral Tablet Delayed Release Venlafaxine HCl ER 150 MG Oral Capsule Extended Release 24 HourTAKE ONE CAPSULE BY MOUTH DAILY ZyrTEC Allergy 10 MG Oral TabletTAKE 1 TABLET DAILY NEEDED. Physical Exam Patient had a negative entrance screening including te (more content not included)... 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 Treatment recommendation may change depending on the severity and/or duration of symptoms. Diet/lifestyle suggestions: Drink enough water over the next few days Please feel free to contact me with any questions or concerns Please note: Dictation software was used while completing this note and may contain spelling, grammatical, and/or syntax errors. Please contact me with any questions. To clinicians, I am always happy to partner with you in the care of your patients. Do not hesitate to call the office or contact me directly regarding any further consultations or with questions regarding the plan of care outlined or patient progress. Chief Complaint cc: migraine History of Present Illness cc: migraine Patient stated that her pain has increased, especially to do not having regular acupuncture treatments in the past few weeks; she describes having no pain-free days since February She stated that she is experiencing a migraine today, and continues to be frustrated with her lack of improvement in pain Initial intake (10/08/2021) Pt came in today seeking treatment for her chronic migraine as well as lingering COVID-19 symptoms; she was referred by Flower Nguyễn CNP, from the COVID recovery clinic; please refer to 's notes for more extensive details Patient was diagnosed with COVID 03/16; amongst her lingering symptoms, her main complaint is migraine; patient stated that the pain level varies in intensity throughout the day, though it is generally worse at the end of the day; she stated that she is sensitive to light and noise, and migraine episodes generally cause nausea, vomiting, lightheadedness, and disorientation; the pain is primarily on her right side; she rates her pain today as 4/10; patient reports having tried Emgality, Ajovy, and Ubrelvy She has been seen by a headache specialist at [facility], who diagnosed her with occipital neuralgia; she stated that she did 5 weeks of PT, and then plateaued ; the PT also attempted dry needling , which she found ineffective; she stated that she will be getting a second opinion with neurology next week; patient also visited a chiropractor in [place] who is a cervical specialist ; she was told that her neck was off by 3 degrees but after her adjustment she is now aligned Patient also complains of ongoing sleep issues, coughing diagnosed as reflux, mood swings, and fatigue and noted that she is getting a second opinion with neurology next week *Active Problems Problems Anxiety disorder, unspecified (300.00) (F41.9) Body aches (780.96) (R52) Cognitive changes (799.59) (R41.89) Depression (311) (F32.A) Fatigue (780.79) (R53.83) Hypersomnolence (780.54) (G47.10) Light headed (780.4) (R42) MDD (major depressive disorder), recurrent episode (296.30) (F33.9) Migraines (346.90) (G43.909) Mild obstructive sleep apnea (327.23) (G47.33) MYRIAM (obstructive sleep apnea) (327.23) (G47.33) Palpitations (785.1) (R00.2) Personal history of COVID-19 (V12.09) (Z86.16) 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 No Known Drug Allergies Recorded By: Ashley Key; 10/06/2021 1:19:30 PM Current Meds Medication NameInstruction Ativan 0.5 MG Oral TabletTAKE 1 TABLET DAILY NEEDED. Azelastine HCl - 137 MCG/SPRAY Nasal Solution Calcium + D TABS Lunesta 3 MG Oral TabletTAKE 1 TABLET AT BEDTIME. Magnesium TABS MSM CAPS Niacinamide 500 MG Oral TabletTAKE 1 TABLET DAILY DIRECTED. predniSONE 10 MG Oral TabletTake 60MG PO dailyX 2 days,50MG PO dailyx 2 days, 40MG PO dailyx 2 days, 30MG PO daily X2days, 20MG PO daily x2days,10MG PO x2 days Qulipta 60 MG Oral TabletTake one Tablet daily with our without food RABEprazole Sodium 20 MG Oral Tablet Delayed Release Venlafaxine HCl ER 150 MG Oral Capsule Extended Release 24 HourTAKE ONE CAPSULE BY MOUTH DAILY ZyrTEC Allergy 10 MG Oral TabletTAKE 1 TABLET DAILY NEEDED. Physical Exam Patient had a negative entrance screening including temperature and symptom check for COVID-19. Procedure Acupuncture points: B LIV4 R LIV8 L LU5 B KM Immune x2 B ST36 R GB4 (more content not included)... Normal [facility] Office Visit (Sleep Medicine )on 01-12-2022 Follow-up visit Diagnoses/Problems Assessed MYRIAM (obstructive sleep apnea) (327.23) (G47.33) Orders MYRIAM (obstructive sleep apnea) Positive Airway Pressure (PAP) Therapy; Status:Active; Requested for:12Jan2022; Perform:(Preferred) [employer]; Due:[id number];Ordered; For:MYRIAM (obstructive sleep apnea); Ordered By:Daniel Jimenez; Staff Performing Instructions (new machine setup only) : Please fax patient's demographics, current insurance information, recent testing (home sleep apnea test, in-lab sleep study, or oximetry test), and signed clinic note summary along with this order to the corresponding DME company. Additional Instructions to DME : Please enroll patient's name in [facility] or [employer] if applicable. Performing Instructions to DME Supplier : For new machine setup or recent adjustment of current PAP settings, please fax 30-day PAP adherence download data to the office. Heated PAP tubing ([id number]), non-heated PAP tubing ([id number]) - 1 per 6 months : Yes Water chamber (A7046), Non-disposable filters (A7039) (if applicable) - 1 per 6 months : Yes Headgear used with PAP mask (A7035), Chin Strap (A7036) - 1 per 6 months : Yes Full face cushions (A7031) - 1 per month : Yes Nasal cushions (A7032), nasal pillows (A7033), disposable filters (A7038) - 2 per month : Yes Nasal mask (A7034), Pillow mask (A7034), Full face mask (A7030) - 1 per 3 months : Yes New PAP supplies: Order / Replace as needed, whichever is applicable, as per insurance schedule : Yes Heated Humidification (E0562) (applies only if PAP device is ordered) : Yes Pressure range in cm H2O : 5-15 AutoCPAP (E0601) : Yes Order Type : New setter cold rolling machine, new PAP supplies, and PAP education Length of Need : 99 months Patient Discussion/Summary It was good to see you today! Obstructive Sleep Apnea (MYRIAM) is a disorder characterized by recurrent apneas during sleep despite efforts to breathe. It is due to upper airway obstruction. These respiratory pauses may induce high levels of carbon dioxide or low oxygen levels. Cardiac arrhythmia and elevation of blood pressure in the body and the lungs may occur. Frequent partial arousals occur during a nights sleep resulting in sleep deprivation and daytime sleepiness. It has been associated with an increased risk of cardiovascular disease, stroke, hypertension, and insulin resistance. Positional therapy was advised. Avoid sleeping on your back. Diet, exercise, and weight loss were encouraged. Avoid alcohol late in the evening as it can make sleep apnea worse. Avoid driving and operating heavy equipment while sleepy. Drowsy driving may lead to life-threatening motor vehicle accident. Treatment options for sleep apnea include weight loss, positional therapy, PAP therapy, oral appliance therapy, and surgery. Please use your machine every time you sleep to feel your best. Insurance expects at least 4 hours of use 5 out of 7 nights per week. Call [facility] at [phone] for any questions or concerns. As a general guideline, please replace your: -CPAP cushions every 2-4 weeks -CPAP mask every 3-6 months -CPAP hose every 3-6 months -Filter every 2-4 weeks -CPAP/BiPAP/ASV replacements every 5-7+ years Bring all equipment with you to follow-up appointments. Follow up: I would like to see you back in 4 months or sooner as needed to see how you are doing. For Questions and Concerns: In case of difficulty with your PAP device or mask interface, please FIRST contact your [employer] company. [employer] can be reached at [phone]. For questions concerning your SLEEP CLINIC appointment: Call [phone] . SLEEP LAB [phone] or [phone]. CAUTIONS for New PAP users: 1. You should know the CMS compliance criteria if you have Medicare or Medicaid. We must see you back between 30 and 90 days from the time you receive your PAP device. Otherwise, your PAP device will be reclaimed by your PAP vendor at 90 days. 2. You must also use your PAP device for more than 4 hours 70% of the time (21 days for a period of 30 days). If you fail all three trials (90 days), your PAP device will be reclaimed. Many insurance companies also follow the same compliance rule. 3. You may be able to swap masks with your PAP vendor within 30 days without being charged for a new mask from the time you receive your PAP device. You should take the advantage of this offer if you have a hard time finding the right mask, as there are many mask options. Please do not get discouraged if you do not like the first one! 4. You must clean your PAP device regularly per instructions from your PAP vendor. Helpful Web Sites: For patients with ALL SLEEP DISORDERS: [employer] (more content not included)... Normal [facility] Tobacco Screening.on 022 Fall risk assessment a) No falls within the last year [facility] Work Phone: Tobacco use status [facility] b) No [facility] Work Phone: Office Visit (Neuro-General) on 12-17-2021 Follow-up visit Patient Discussion/S haritha Discussed role of medicine, importance of taking medications, potential risks, benefits, and precautions to be taken. Reviewed sleep hygiene and dietary modifications. Follow-up in 6 months. Diagnoses/Problems Assessed Migraines (346.90) (G43.909) Orders Migraines Renew: predniSONE 10 MG Oral Tablet; Take 60MG PO dailyX 2 days,50MG PO dailyx 2 days, 40MG PO dailyx 2 days, 30MG PO daily X2days, 20MG PO daily x2days,10MG PO x2 days Chief Complaint Migraine Neurologic Evaluation. An interactive audio and video telecommunication system which permits real time communications between the patient (at the originating site) and provider (at the distant site) was utilized to provide this telehealth service. Verbal consent was requested and obtained from FLAQUITA ROBERTSON on this date, 12/17/2021 09:30 AM , for a telehealth visit. History of Present Illness Patient being assessed today for follow-up of migraines. Patient reports that her migraine activity has significantly improved and when she gets a breakthrough headache it is a minor headaches that she is able to manage easily. Denies any side effects from the Qulipta. Would like to continue the Qulipta as she has been taking it. Discussed role of medicine, controlled substance policy,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 Zhukhary DO Work Phone: [facility] 05-24-2023 15:01-0500 Body weight 76.93 kg Daniel Zhukhary DO Work Phone: [facility] 05-24-2023 15:01-0500 Diastolic blood pressure 95 mm[Hg] Daniel Zhukhary DO Work Phone: [facility] 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: had a stressful morning 05-24-2023 15:01-0500 Heart rate 76 /min Daniel Zhukhary DO Work Phone: [facility] 05-24-2023 15:01-0500 Respiratory rate 18 /min Daniel Zhukhary DO Work Phone: [facility] 05-24-2023 15:01-0500 SaO2% (BldA) [Mass fraction] 97 % Daniel Andersonary DO Work Phone: [facility] 05-24-2023 15:01-0500 Systolic blood pressure 159 mm[Hg] Daniel Andersonary DO Work Phone: [facility] 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: had a stressful morning 10-28-2022 11:00-0400 Body temperature 98.8 [degF] Inocencio Rosado Work Phone: [facility] [place] [address] DO Work Phone: 10-28-2022 11:00-0400 Diastolic blood pressure 90 mm[Hg] Inocencio Rosado Work Phone: [facility] [place] [address] DO Work Phone: 10-28-2022 11:00-0400 Heart rate 86 /min Inocencio Rosado Work Phone: [facility] [place] [address] DO Work Phone: 10-28-2022 11:00-0400 Respiratory rate 16 /min Inocencio Rosado Work Phone: [facility] [place] [address] DO Work Phone: 10-28-2022 11:00-0400 SaO2% (BldA) [Mass fraction] 96 % Inocencio G Ashlee Work Phone: [facility] [place] [address] DO Work Phone: 10-28-2022 11:00-0400 Systolic blood pressure 136 mm[Hg] Inocencio G Ashlee Work Phone: [facility] [place] [address] DO Work Phone: 07-29-2022 11:00-0400 Body mass index (BMI) [Ratio] 33.54 kg/m2 Inocencio G Ashlee Work Phone: [facility] [place] [address] DO Work Phone: 07-29-2022 11:00-0400 Body surface area Derived from formula 1.75 m2 Inocencio Rosado Work Phone: [facility] [address] DO Work Phone: 07-29-2022 11:00-0400 Body temperature 97.9 [degF] Inocencio G Ashlee Work Phone: [facility] [address] DO Work Phone: 07-29-2022 11:00-0400 Body weight 77.9 kg Inocencio G Ashlee Work Phone: [facility] [place] [address] DO Work Phone: 07-29-2022 11:00-0400 Diastolic blood pressure 80 mm[Hg] Inocencio Rosado Work Phone: [facility] [address] DO Work Phone: 07-29-2022 11:00-0400 Heart rate 79 /min Inocencio Rosado Work Phone: [facility] [address] DO Work Phone: 07-29-2022 11:00-0400 Respiratory rate 16 /min Inocencio Rosado Work Phone: [facility] [place] [address] DO Work Phone: 07-29-2022 11:00-0400 SaO2% (BldA) [Mass fraction] 99 % Inocencio Rosado Work Phone: [facility] [place] [address] DO Work Phone: 07-29-2022 11:00-0400 Systolic blood pressure 138 mm[Hg] Inocencio Rosado Work Phone: [facility] [place] [address] DO Work Phone: 05-11-2022 11:19-0500 Body height 152.4 cm Inocencio Rosado Work Phone: [facility] [facility] Work Phone: 05-11-2022 11:19-0500 Body mass index (BMI) [Ratio] 32.22 kg/m2 Inocencio Rosado Work Phone: [facility] [facility] Work Phone: 05-11-2022 11:19-0500 Body surface area Derived from formula 1.72 m2 Inocencio Rosado Work Phone: [facility] [facility] Work Phone: 05-11-2022 11:19-0500 Body weight 74.84 kg Inocencio Rosado Work Phone: [facility] [facility] Work Phone: 05-11-2022 11:19-0500 Diastolic blood pressure 91 mm[Hg] Inocencio Rosado Work Phone: [facility] [facility] Work Phone: 05-11-2022 11:19-0500 Heart rate 80 /min Inocencio Rosado Work Phone: [facility] [facility] Work Phone: 05-11-2022 11:19-0500 Respiratory rate 18 /min Inocencio Rosado Work Phone: [facility] [facility] Work Phone: 05-11-2022 11:19-0500 SaO2% (BldA) [Mass fraction] 98 % Inocencio Rosado Work Phone: [facility] [facility] Work Phone: 05-11-2022 11:19-0500 Systolic blood pressure 149 mm[Hg] Inocencio Rosado Work Phone: [facility] [facility] Work Phone: 05-11-2022 11:19-0500 0 1 Inocencio Rosado Work Phone: [facility] Work Phone: 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: [facility] 04-06-2022 11:45-0500 Body height 152.4 cm Inocencio Rosado Work Phone: [facility] Work Phone: 04-06-2022 11:45-0500 Body mass index (BMI) [Ratio] 32.81 kg/m2 Inocencio Rosado Work Phone: [facility] Work Phone: 04-06-2022 11:45-0500 Body surface area Derived from formula 1.73 m2 Inocencio Rosado [facility] Work Phone: 04-06-2022 11:45-0500 Body temperature 96.8 [degF] Inocencio Rosado Work Phone: [facility] Work Phone: 04-06-2022 11:45-0500 Body weight 76.2 kg [facility]ocencio [facility] Work Phone: 04-06-2022 11:45-0500 Diastolic blood pressure 95 mm[Hg] Inocencio Rosado [facility] Work Phone: 04-06-2022 11:45-0500 Heart rate 77 /min Inocencio Rosado [facility] Work Phone: 04-06-2022 11:45-0500 Respiratory rate 16 /min Inocencio Rosado [facility] Work Phone: 04-06-2022 11:45-0500 SaO2% (BldA) [Mass fraction] 99 % Inocencio Rosado [facility] Work Phone: 04-06-2022 11:45-0500 Systolic blood pressure 139 mm[Hg] Inocencio Rosado [facility] Work Phone: 01-12-2022 11:11-0400 Body mass index (BMI) [Ratio] 32.03 kg/m2 Inocencio Rosado Work Phone: [facility] Work Phone: 01-12-2022 11:11-0400 Body surface area Derived from formula 1.72 m2 Inocencio G Jonahchristiano Work Phone: [facility] Work Phone: 01-12-2022 11:11-0400 Body weight 74.39 kg Inocencio Rosado Work Phone: [facility] Work Phone: 01-12-2022 11:11-0400 Diastolic blood pressure 97 mm[Hg] Inocencio Rosado Work Phone: [facility] Work Phone: 01-12-2022 11:11-0400 Heart rate 91 /min Inocencio Rosado Work Phone: [facility] Work Phone: 01-12-2022 11:11-0400 SaO2% (BldA) [Mass fraction] 97 % Inocencio Rosado Work Phone: [facility] Work Phone: 01-12-2022 11:11-0400 Systolic blood pressure 135 mm[Hg] Inocencio Rosado Work Phone: [facility] Work Phone: 01-12-2022 11:11-0400 0 1 Inocencio Rosado Work Phone: [facility] Work Phone: 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: [facility] 12-15-2021 11:40-0400 Body height 152.4 cm Inocencio Rosado Work Phone: [facility] [address] [place] Work Phone: 12-15-2021 11:40-0400 Body mass index (BMI) [Ratio] 32.03 kg/m2 Inocencio Rosado Work Phone: [facility] [address] [place] Work Phone: 12-15-2021 11:40-0400 Body surface area Derived from formula 1.72 m2 Inocencio Rosado Work Phone: [facility] [place] Work Phone: 12-15-2021 11:40-0400 Body temperature 97.8 [degF] Inocencio Rosado Work Phone: [facility] [place] Work Phone: 12-15-2021 11:40-0400 Body weight 74.39 kg Inocencio Rosado Work Phone: [facility] [address] [place] Work Phone: 12-15-2021 11:40-0400 Diastolic blood pressure 89 mm[Hg] Inocencio Rosado Work Phone: [facility] [address] [place] Work Phone: 12-15-2021 11:40-0400 Heart rate 75 /min Inocencio Rosado Work Phone: [facility] [address] [place] Work Phone: 12-15-2021 11:40-0400 SaO2% (BldA) [Mass fraction] 97 % Inocencio Rosado Work Phone: [facility] [address] [place] Work Phone: 12-15-2021 11:40-0400 Systolic blood pressure 136 mm[Hg] Inocencio Rosado Work Phone: [facility] [address] [place] Work Phone: 10-16-2021 15:42-0400 Body height 152.4 cm Referring Provider Unknown [employer] Work Phone: 10-16-2021 15:42-0400 Body mass index (BMI) [Ratio] 32.22 kg/m2 Referring Provider Unknown [employer] Work Phone: 10-16-2021 15:42-0400 Body surface area Derived from formula 1.72 m2 Referring Provider Unknown [employer] Work Phone: 10-16-2021 15:42-0400 Body weight 74.84 kg Referring Provider Unknown [facility] Work Phone: 10-06-2021 12:49-0400 Body height 152.4 cm Referring Provider Unknown [facility] [address] [place] Work Phone: 10-06-2021 12:49-0400 Body mass index (BMI) [Ratio] 32.22 kg/m2 Referring Provider Unknown [facility] [address] [place] Work Phone: 10-06-2021 12:49-0400 Body surface area Derived from formula 1.72 m2 Referring Provider Unknown [facility] [address] [place] Work Phone: 10-06-2021 12:49-0400 Body temperature 98 [degF] Referring Provider Unknown [facility] [address] [place] Work Phone: 10-06-2021 12:49-0400 Body weight 74.84 kg Referring Provider Unknown [facility] [address] [place] Work Phone: 10-06-2021 12:49-0400 Diastolic blood pressure 87 mm[Hg] Referring Provider Unknown [facility] [address] [place] Work Phone: 10-06-2021 12:49-0400 Heart rate 96 /min Referring Provider Unknown [facility] [address] [place] Work Phone: 10-06-2021 12:49-0400 SaO2% (BldA) [Mass fraction] 99 % Referring Provider Unknown [facility] [address] [place] Work Phone: 10-06-2021 12:49-0400 Systolic blood pressure 126 mm[Hg] Referring Provider Unknown [facility] [address] [place] Work Phone: 08-06-2021 09:10-0400 Body height 152.4 cm Nancy Villalta DO Work Phone: [facility] 08-06-2021 09:10-0400 Body weight 74.84 kg Nancy Villalta DO Work Phone: [facility] 08-06-2021 09:10-0400 Diastolic blood pressure 83 mm[Hg] Nancy Villalta DO Work Phone: [facility] 08-06-2021 09:10-0400 Heart rate 91 /min Nancy Villalta DO Work Phone: [facility] 08-06-2021 09:10-0400 Systolic blood pressure 143 mm[Hg] Nancy Villalta DO Work Phone: [facility] Encounters Encounter Date Encounter Type Care Provider Facility Start: 11-10-2023 End: 11-10-2023 ambulatory Patricio Moser Facility:[facility] Start: 10-12-2023 End: 10-12-2023 ambulatory NICOLE P FRAN Facility:[facility] Start: 10-11-2023 End: 10-11-2023 ambulatory NICOLE P HOUSE Facility:[facility] Start: 10-07-2023 End: 10-07-2023 ambulatory NICOLE P HOUSE Facility:[facility] Start: 09-27-2023 End: 09-27-2023 ambulatory NICOLE P FRAN Facility:[facility] Start: 06-29-2023 End: 06-29-2023 ambulatory DO NICOLE P HOUSE Facility:[facility] Start: 05-24-2023 End: 05-24-2023 Office outpatient visit 15 minutes Daniel Jimenez DO Work Phone: [facility] 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: MYRIAM (obstructive sle ep apnea) (Primary Dx) Start: 05-05-2023 End: 05-05-2023 ambulatory DO NICOLE P FRAN Facility:[facility] Start: 03-30-2023 End: 03-30-2023 ambulatory Ashu Goff Facility:[facility] Start: 03-30-2023 End: 03-30-2023 ambulatory MD Inocencio Rosado Work Phone: [facility] Work Phone: Start: 03-30-2023 End: 03-30-2023 Patient encounter procedure MD Inocencio Rosado Work Phone: [facility] [place] Work Phone: Start: 03-30-2023 End: 03-30-2023 ambulatory Inocencio Rosado MD Facility:[facility] Start: 03-30-2023 End: 03-30-2023 ambulatory Inocencio Rosado MD Facility:[facility] Start: 12-24-2022 End: 12-24-2022 ambulatory Inocencio Rosado MD Facility:[facility] Start: 10-28-2022 Patient encounter procedure Inocencio Rosado Work Phone: [facility] 6[address] DO Work Phone: Start: 10-28-2022 ambulatory Ms. Cosme Dawn hangjerri Karie Facility: Start: 10-22-2022 ambulatory Eve Prosak Facility:[id number] Start: 09-24-2022 AUDIT Inocencio Blanchard an Work Phone: YD-Stvuzilmr-Iaacxbrd [address] Work Phone: Start: 09-23-2022 AUDIT Inocencio Blanchard an Work Phone: IX-Lxspjtsng-Jidyxtsn [address] Work Phone: Start: 09-17-2022 ambulatory Eve Prosak Facility:[id number] Start: 09-01-2022 ambulatory Eve Prosak Facility:[id number] Start: 07-29-2022 ambulatory Ms. Griselda Hammonds Facil ity:[id number] Start: 07-29-2022 Patient encounter procedure Inocencio Rosado Work Phone: [facility] [place] 1202 DO Work Phone: Start: 07-29-2022 ambulatory Ms. Cosme Dawn hangjerri Arundedra Facility: Start: 07-15-2022 Patient encounter procedure Inocencio Rosado Work Phone: [facility] Work Phone: Start: 07-15-2022 ambulatory PAC LISSA KELLI YOUNG Facility:[id number] Start: 06-11-2022 AUDIT Inocencio Blanchard an Work Phone: DS-Llfxuevnz-Clboyuph [address] Work Phone: Start: 06-10-2022 TRA, Provider : Griselda Hammonds, Status: Pen, Time: 5:00 PM Inocencio Rosado Work Phone: ED-Wjtzxnpru-Lhkhnpnw [address] Work Phone: Start: 06-10-2022 FUV, Provider: Lissa Young, Status: Pen, Time: 4:00 PM Inocencio Rosado Work Phone: AG-Wkowdskib-Fhpnqdkd [address] Work Phone: Start: 06-10-2022 Office outpatient vi sit 40 minutes Inocencio Rosado Work Phone: [facility] Work Phone: Start: 06-10-2022 Patient encounter procedure Inocencio Rosado Work Phone: [facility] Work Phone: Start: 06-10-2022 ambulatory Ms. Griselda Hammonds [facility] ity:[id number] Start: 06-10-2022 MERLE, Provider: Xavier Osorio, Status: Pen, Time: 2:20 PM Inocencio Rosado Work Phone: BR-Prymrnzau-Pnzixrpe [address] Work Phone: Start: 06-08-2022 AUDIT Inocencio Blanchard an Work Phone: AK-Grlmfnhzp-Gcbkpzim [address] Work Phone: Start: 06-03-2022 Office outpatient vi sit 25 minutes Inocencio Rosado Work Phone: FL-Fyhrahssn-Ssamaziy [address] Work Phone: Start: 06-03-2022 ambulatory Zoie Crump Facility:[id number] Start: 05-29-2022 Office outpatient ne w 30 minutes Inocencio Rosado Work Phone: [facility] Work Phone: Start: 05-29-[address] Xavier Osorio Facility:[id number] Start: 05-25-2022 ambulatory Ms. Griselda Hammonds Facil ity:[id number] Start: 05-11-2022 ambulatory Nardine Justinary Facilit y:[id number] Start: 05-11-2022 Current tobacco non-user cad cap copd pv dm Inocencio Rosado Work Phone: [facility] [facility] Work Phone: Start: 05-04-2022 ambulatory Ms. Griselda Hammonds Facil ity:[id number] Start: 05-04-2022 ambulatory Ms. Flower Nguyễn Facil ity:[id number] Start: 05-04-2022 Patient encounter procedure Inocencio Rosado Work [facility] Work Phone: Start: 04-13-2022 ambulatory Ms. Griselda Hammonds Facil ity:[id number] Start: 04-13-2022 ambulatory Ms. Flower Nguyễn Facil ity:[id number] Start: 04-13-2022 Patient encounter procedure [facility]ocencio Rosado [facility] Work Phone: Start: 04-06-2022 ambulatory Flower Nguyễn Facility: [facility][note 3] Start: 04-06-2022 ambulatory Ms. Flower Nguyễn Facil ity:[id number] Start: 04-06-2022 Patient encounter procedure [facility]ocencio Rosado [facility] Work Phone: Start: 03-11-2022 ambulatory Ms. Griselda Hammonds Facil ity:[id number] Start: 03-11-2022 ambulatory Ms. Flower Nguyễn Facil ity:[id number] Start: 03-11-2022 Patient encounter procedure Inocencio Rosado Work Phone: [facility] Work Phone: Start: 03-04-2022 TRA, Provider : Griselda Hammonds, Status: Pen, Time: 11:00 AM Inocencio Rosado Work Phone: [facility] [address] [place] Work Phone: Start: 03-04-2022 ambulatory Ms. Griselda Hammonds Facil ity:[id number] Start: 03-04-2022 Patient encounter procedure Inocencio Rosado Work Phone: [facility] Work Phone: Start: 03-04-2022 PTFUADULT4, Provider : Manish Kramer, Status: Pen, Time: 8:30 AM Inocencio G Jonahchristiano Work Phone: [facility] [address] [place] Work Phone: Start: 03-04-2022 ambulatory Ms. Flower Castillo ity:[id number] Start: 03-02-2022 Office outpatient vi sit 15 minutes Inocencio G Jonahchristiano Work Phone: [facility] [address] [place] Work Phone: Start: 02-18-2022 ambulatory Ms. Flower Castillo ity:[id number] Start: 02-18-2022 PTFUADULT4, Provider : Manish Kramer, Status: Pen, Time: 9:15 AM Inocencio G Jonahchristiano Work Phone: [facility] Work Phone: Start: 02-17-2022 ambulatory Ms. Griselda Hammonds Facil ity:[id number] Start: 02-17-2022 Patient encounter procedure Inocencio Gilmore Jonahchristiano Work Phone: [facility] Work Phone: Start: 02-09-2022 Patient encounter procedure Inocencio Mckenziechristiano Work Phone: [facility] Work Phone: Start: 02-09-2022 ambulatory Ms. Griselda Hammonds Facil ity:[id number] Start: 02-09-2022 Patient encounter procedure Inocencio Gilmore Jonahchristiano Work Phone: [facility] Work Phone: Start: 02-09-2022 ambulatory Ms. Flower Nguyễn Facil ity:[id number] Start: 02-05-2022 ambulatory Ms. Griselda Hammonds Facil ity:[id number] Start: 01-27-2022 AUDIT Inocencio Blanchard an Work Phone: [facility] Work Phone: Start: 01-27-2022 ambulatory Ms. Griselda Hammonds Facil ity:[id number] Start: 01-20-2022 Patient encounter procedure Inocencio Mckenziechristiano Work Phone: [facility] Work Phone: Start: 01-20-2022 ambulatory Ms. Griselda Hammonds Facil ity:[id number] Start: 01-13-2022 Rx Renewal Inocencio Blanchard an Work Phone: [facility]-[address]fe[address] [place] Work Phone: Start: 01-12-2022 Current tobacco non-user cad cap copd pv dm Inocencio Rosado Work Phone: [facility] [address] [place] Work Phone: Start: 01-12-2022 ambulatory Nardine Barbara Facilit [id number] Start: 12-17-2021 RICK, Provider : Zoie Crump, Status: Pen, Time: 9:30 AM Inocencio Rosado Work Phone: [facility] 130 [place] Work Phone: Start: 12-17-2021 ambulatory Zoie Crump Facility:[id number] [phone] Start: 12-16-2021 ambulatory Ms. Griselda Hammonds Facil [id number] Start: 12-16-2021 TRA, Provider : Griselda Hammonds, Status: Pen, Time: 10:30 AM Inocencio Rosado Work Phone: [facility] 130 [place] Work Phone: Start: 12-16-2021 Patient encounter procedure Inocencio Rosado Work Phone: Puneet Ross [facility] Work Phone: Start: 12-15-2021 Patient encounter procedure Inocencio Rosado Work Phone: [facility] 130 [place] Work Phone: Start: 12-15-2021 ambulatory Flower Nguyễn Facility: [facility][note 3] Start: 11-21-[address] Aundrea goode Calderon Facility: Start: 11-18-2021 ambulatory Ms. Griselda Hammonds Facil [id number] Start: 11-18-2021 Patient encounter procedure Inocencio Rosado Work Phone: Puneet Ross [facility] Work Phone: Start: 11-12-2021 Patient encounter procedure Inocencio Rosado Work Phone: Puneet Ross [facility] Work Phone: Start: 11-12-2021 ambulatory [facility] Facility:[facility] Start: 11-04-2021 ambulatory Ms. Griselda Hammonds Facil [id number] Start: 11-04-2021 Patient encounter procedure Inocencio Rosado Work Phone: Located within [facility] [address] [place] Work Phone: Start: 11-04-2021 ambulatory TAMMI NGUYỄN Facil ity: Start: 10-24-2021 Office outpatient ne w 60 minutes Referring Provider Unknown [facility] Work Phone: Start: 10-24-2021 Telephone encounter Referring Provider Unknown [facility] [address] [place] Work Phone: Start: 10-17-2021 Patient encounter procedure Referring Provider Unknown [facility] 130 [place] Work Phone: Start: 10-16-2021 VIRTIFFANY, Provider : Joana Tejeda, Status: Pen, Time: 3:00 PM Referring Provider Unknown UA-Erbxnkgix-Utznwjkr B 101 Work Phone: Start: 10-16-2021 FUVACUPUNC, Provider : Griselda Hammonds, Status: Pen, Time: 11:30 AM Referring Provider Unknown XF-Kxiskvosb-Eelacvlk B 101 Work Phone: Start: 10-15-2021 Office outpatient ne w 45 minutes Referring Provider Unknown QC-Rlyiinemu-Nnitpayh B 101 Work Phone: Start: 10-08-2021 AUDIT Referring Prov ider Unknown -Pulm [facility] 3100 Work Phone: Start: 10-08-2021 NPVACUPUNC, Provider : Griselda Hammonds, Status: Pen, Time: 1:00 PM Referring Provider Unknown [facility] 130 [place] Work Phone: Start: 10-08-2021 Patient encounter procedure Referring Provider Unknown [facility] Work Phone: Start: 10-06-2021 Patient encounter procedure Referring Provider Unknown [facility] 130 [place] Work Phone: Start: 10-06-2021 ambulatory PCP UNKNOWN Facility:[facility] Start: 09-19-2021 Orders Only Nancy Wetzel Work Phone: Neurology 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: Migraine without aur a and without status migrainosus, not intractable (Primary Dx); Cervical paraspinal muscle spasm; Occipital neuralgia of right side Start: 08-06-2021 End: 08-06-2021 Patient encounter procedure Nancy Villalta DO Work Phone: Neurology 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: Occipital neuralgia of right side (Primary Dx); Cervical paraspinal muscle spasm; Migraine without aura and without status migrainosus, not intractable Start: 07-24-2021 Telephone encounter Neurology Provid er Neurology 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: Received Outside Med ical Records (Imaging reports) Start: 07-15-2021 Telephone encounter Neurology Provid er Neurology 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: Received Outside Med ical Records ([facility] referral to Headache & Facial Pain) Procedures Date Procedure Procedure Detail Performing Clinician Start: 10-01-2022 Follow-up visit Start: 07-29-2022 Follow-up visit Start: 07-30-2021 Adult depression scr eening assessment Nancy Villalta DO Work Phone: Start: 04-07-2021 Colonoscopy Daniel franco DO Work Phone: Start: 02-08-2020 Mammography Daniel franco DO Work Phone: Appendectomy Inocencio graff Work Phone: Colonoscopy Inocencio graff Work Phone: Endoscopy Inocencio graff Work Phone: Hysterectomy Referring Provi bailey Unknown Ligation of fallopian tube D magali Rosado Work Phone: Tonsillectomy and adenoidectomy Inocencio Rosado Work Phone: Plan of Treatment Date Care Activity Detail Author Start: 04-07-2031 Screening for malignant neoplasm of colon [facility] Start: 11-18-2025 DTaP/Tdap/Td Vaccines (2 - Td or Tdap) DTaP/Tdap/Td Vaccines (2 - Td or Tdap) [facility] Start: 07-30-2023 End: 07-30-2023 ambulatory 07/30/2023 11:00 AM EDT Infusion [facility] [address] [place] [address] [facility] Start: 05-10-2023 FUV, Provider: Daniel Jimenez, Status: Pen, Time: 11:00 AM FUV, Provider: Daniel Jimenez, Status: Pen, Time: 11:00 AM MG-Pulm [facility] 2300 Work Phone: Start: 03-30-2023 MR Orbit WO and W contrast IV [facility] Start: 03-30-2023 MRI of orbit with contrast MR orbit wo/w con [facility] Start: 03-30-2023 MR Unspecified body region [facility] Start: 03-30-2023 MRI of head MR head/brain wo/w [facility] Start: 01-28-2023 [id number], Provider: Prerna [facility] [id number], Status: Pen, Time: 11:00 AM [id number], Provider: Prerna [facility] [id number], Status: Pen, Time: 11:00 AM MG-Ambulatory Infusion [facility] [address] [place] Work Phone: Start: 12-25-2022 COVID-19 Vaccine () COVID-19 Vaccine () [facility] Start: 11-12-2022 FUVACUPUNC, Provider: Griselda Hammonds, Status: Pen, Time: 11:00 AM FUVACUPUNC, Provider: Griselda Hammonds, Status: Pen, Time: 11:00 AM IW-Qejxriagz-Vfuyehzy B 101 Work Phone: Start: 11-12-2022 FUVCHIRO, Provider: Eve Mccollum, Status: Pen, Time: 10:40 AM FUVCHIRO, Provider: Eve Mccollum, Status: Pen, Time: 10:40 AM DH-Zeczcszfy-Ytgvmhyl B 101 Work Phone: Start: 10-28-2022 [id number], Provider: Prerna [facility] [id number], Status: Pen, Time: 11:00 AM [id number], Provider: Prerna [facility] [id number], Status: Pen, Time: 11:00 AM MG-Ambulatory [facility]fusion [facility] [address] [place] Work Phone: Start: 10-22-2022 FUVACUPUNC, Provider: Astor,Griselda, Status: Pen, Time: 11:30 AM FUVACUPUNC, Provider: Griselda Hammonds, Status: Pen, Time: 11:30 AM EN-Ivvazxmkb-Tqpccctg B 101 Work Phone: Start: 10-22-2022 FUVCHIRO, Provider: Eve Mccollum, Status: Pen, Time: 11:00 AM FUVCHIRO, Provider: Eve Mccollum, Status: Pen, Time: 11:00 AM NL-Cuulzgqlw-Vxurhpee B 101 Work Phone: Start: 10-01-2022 FUVACUPUNC, Provider: Griselda Hammonds, Status: Pen, Time: 11:00 AM FUVACUPUNC, Provider: Griselda Hammonds, Status: Pen, Time: 11:00 AM [facility] Work Phone: Start: 10-01-2022 FUVCHINII, Provider: Eve Mccollum, Status: Pen, Time: 10:20 AM FUVCHIRO, Provider: Eve Mccollum, Status: Pen, Time: 10:20 AM [facility] Work Phone: Start: 09-17-2022 FUVACUPUNC, Provider: Griselda Hammonds, Status: Pen, Time: 11:00 AM FUVACUPUNC, Provider: Griselda Hammonds, Status: Pen, Time: 11:00 AM [email or web address] Work Phone: Start: 09-17-2022 FUVCHIRO, Provider: Eve Mccollum, Status: Pen, Time: 10:20 AM FUVCHIRO, Provider: Eve Mccollum, Status: Pen, Time: 10:20 AM [email or web address] Work Phone: Start: 09-01-2022 FUVACUPUNC, Provider: Griselda Hammonds, Status: Pen, Time: 12:00 PM FUVACUPUNC, Provider: Griselda Hammonds, Status: Pen, Time: 12:00 PM [facility] Work Phone: Start: 09-01-2022 FUVCHIRO, Provider: Eve Mccollum, Status: Pen, Time: 11:40 AM FUVCHIRO, Provider: Eve Mccollum, Status: Pen, Time: 11:40 AM [employer] Phone: Start: 08-20-2022 FUVACUPUNC, Provider: Griselda Hammonds, Status: Pen, Time: 2:00 PM FUVACUPUNC, Provider: Griselda Hammonds, Status: Pen, Time: 2:00 PM [employer] Phone: Start: 08-20-2022 FUVCHINII, Provider: Eve Mccollum, Status: Pen, Time: 1:40 PM FUVCHIRO, Provider: Eve Mccollum, Status: Pen, Time: 1:40 PM [employer] Phone: Start: 07-30-2022 Adult depression screening assessment DEPRESSION SCREENING [facility] Start: 07-29-2022 FUVACUPUNC, Provider: Griselda Hammonds, Status: Pen, Time: 3:00 PM FUVACUPUNC, Provider: Griselda Hammonds, Status: Pen, Time: 3:00 PM [employer] Phone: Start: 07-29-2022 FUVCHINII, Provider: Eve Mccollum, Status: Pen, Time: 2:20 PM FUVCHIRO, Provider: Eve Mccollum, Status: Pen, Time: 2:20 PM [employer] Phone: Start: 07-15-2022 FUVACUPUNC, Provider: Griselda Hammonds, Status: Pen, Time: 12:30 PM FUVACUPUNC, Provider: Griselda Hammonds, Status: Pen, Time: 12:30 PM [employer] Phone: Start: 07-15-2022 MARCELLAVCSTEPHEN, Provider: Xavier Osorio, Status: Pen, Time: 12:00 PM FUVCHIRO, Provider: Xavier Osorio, Status: Pen, Time: 12:00 PM [facility] Work Phone: Start: 07-03-2022 FUVCHIRO, Provider: Xavier Osorio, Status: Pen, Time: 2:20 PM FUVCHIRO, Provider: Xavier Osorio, Status: Pen, Time: 2:20 PM [facility] [address] Work Phone: Start: 07-01-2022 FUVACUPUNC, Provider: Griselda Hammonds, Status: Pen, Time: 3:00 PM FUVACUPUNC, Provider: Griselda Hammonds, Status: Pen, Time: 3:00 PM [facility] Work Phone: Start: 07-01-2022 FUVCHIRO, Provider: Xavier Osorio, Status: Pen, Time: 2:40 PM FUVCHIRO, Provider: Xavier Osorio, Status: Pen, Time: 2:40 PM [facility] Work Phone: Start: 06-10-2022 FUVACUPUNC, Provider: Griselda Hammonds, Status: Pen, Time: 5:00 PM FUVACUPUNC, Provider: Griselda Hammonds, Status: Pen, Time: 5:00 PM [facility] Work Phone: Start: 06-10-2022 FUV, Provider: Lissa Young, Status: Pen, Time: 4:00 PM FUV, Provider: Lissa Young, Status: Pen, Time: 4:00 PM MP-Kwesi [facility] Work Phone: Start: 06-10-2022 FUVCHIRO, Provider: Xavier Osorio, Status: Pen, Time: 2:20 PM FUVCHIRO, Provider: Xavier Osorio, Status: Pen, Time: 2:20 PM [facility] Work Phone: Start: 02-08-2023 VIRFUVHOME, Provider: Joana Tejeda, Status: Pen, Time: 11:00 AM VIRFUVHOME, Provider: Joana Tejeda, Status: Pen, Time: 11:[address] Work Phone: Start: 06-03-2022 VIRFUVHOME, Provider: Zoie Crump, Status: Pen, Time: 9:30 AM VIRFUVHOME, Provider: Zoie Crump, Status: Pen, Time: 9:30 AM [facility] Work Phone: Start: 05-25-2022 FUVACUPUNC, Provider: Griselda Hammonds, Status: Pen, Time: 11:00 AM FUVACUPUNC, Provider: Griselda Hammonds, Status: Pen, Time: 11:00 AM [facility] Work Phone: Start: 05-11-2022 FUV, Provider: Daniel Jimenez, Status: Pen, Time: 11:00 AM FUV, Provider: Daniel Jimenez, Status: Pen, Time: 11:00 AM -Pulmonary [address] Work Phone: Start: 05-04-2022 FUVACUPUNC, Provider: Griselda Hammonds, Status: Pen, Time: 12:00 PM FUVACUPUNC, Provider: Griselda Hammonds, Status: Pen, Time: 12:00 PM [facility] Work Phone: Start: 05-04-2022 PTFUADULT4, Provider: Manish Kramer, Status: Pen, Time: 9:15 AM PTFUADULT4, Provider: Manish Kramer, Status: Pen, Time: 9:15 AM [facility] Work Phone: Start: 04-22-2022 PTFUADULT4, Provider: Manish Kramer, Status: Pen, Time: 8:30 AM PTFUADULT4, Provider: Manish Kramer, Status: Pen, Time: 8:30 AM [facility] Work Phone: Start: 04-13-2022 FUVACUPUNC, Provider: Griselda Hammonds, Status: Pen, Time: 11:00 AM FUVACUPUNC, Provider: Griselda Hammonds, Status: Pen, Time: 11:00 AM [facility] Work Phone: Start: 04-13-2022 PTFUADULT4, Provider: Manish Kramer, Status: Pen, Time: 8:30 AM PTFUADULT4, Provider: Manish Kramer, Status: Pen, Time: 8:30 AM [facility] Work Phone: Start: 04-06-2022 Patient encounter procedure FUVCOVID, Provider: [facility],[id number], Status: Pen, Time: 11:[address] [facility] [address] [place] Work Phone: Start: 04-06-2022 PTFUADULT4, Provider: Manish Kramer, Status: Pen, Time: 9:15 AM PTFUADULT4, Provider: Manish Kramer, Status: Pen, Time: 9:15 AM [facility] Work Phone: Start: 04-01-2022 PTFUADULT4, Provider: Manish Kramer, Status: Pen, Time: 2:00 PM PTFUADULT4, Provider: Manish Kramer, Status: Pen, Time: 2:00 PM [facility] Work Phone: Start: 04-01-2022 FUVACUPUNC, Provider: Griselda Hammonds, Status: Pen, Time: 10:30 AM FUVACUPUNC, Provider: Griselda Hammonds, Status: Pen, Time: 10:30 AM [facility] Work Phone: Start: 04-01-2022 PTFUADULT4, Provider: Manish Kramer, Status: Pen, Time: 8:30 AM PTFUADULT4, Provider: Manish Kramer, Status: Pen, Time: 8:30 AM [facility] Work Phone: Start: 03-11-2022 FUVACUPUNC, Provider: Griselda Hammonds, Status: Pen, Time: 11:00 AM FUVACUPUNC, Provider: Griselda Hammonds, Status: Pen, Time: 11:00 AM [facility] Work Phone: Start: 03-11-2022 PTFUADULT4, Provider: Manish Kramer, Status: Pen, Time: 8:30 AM PTFUADULT4, Provider: Manish Kramer, Status: Pen, Time: 8:30 AM [facility] Work Phone: Start: 03-05-2022 FUVACUPUNC, Provider: Griselda Hammonds, Status: Pen, Time: 11:00 AM FUVACUPUNC, Provider: Griselda Hammonds, Status: Pen, Time: 11:00 AM [facility] Work Phone: Start: 03-04-2022 FUVACUPUNC, Provider: Griselda Hammonds, Status: Pen, Time: 11:00 AM FUVACUPUNC, Provider: Griselda Hammonds, Status: Pen, Time: 11:00 AM [facility] Work Phone: Start: 03-04-2022 PTFUADULT4, Provider: Manish Kramer, Status: Pen, Time: 8:30 AM PTFUADULT4, Provider: Manish Kramer, Status: Pen, Time: 8:30 AM [facility] Work Phone: Start: 03-02-2022 VIRFUVHOME, Provider: Joana Tejeda, Status: Pen, Time: 9:30 AM VIRFUVHOME, Provider: Joana Tejeda, Status: Pen, Time: 9:30 [address] Work Phone: Start: 02-17-2022 FUVACUPUNC, Provider: Griselda Hammonds, Status: Pen, Time: 11:00 AM FUVACUPUNC, Provider: Griselda Hammonds, Status: Pen, Time: 11:00 AM [facility] Work Phone: Start: 02-10-2022 FUVACUPUNC, Provider: Griselda Hammonds, Status: Pen, Time: 2:30 PM FUVACUPUNC, Provider: Griselda Hammonds, Status: Pen, Time: 2:30 PM [facility] Work Phone: Start: 02-09-2022 PTEVAADULT, Provider: Manish Kramer, Status: Pen, Time: 9:15 AM PTEVAADULT, Provider: Manish Kramer, Status: Pen, Time: 9:15 AM [facility] Work Phone: Start: 02-05-2022 FUVACUPUNC, Provider: Griselda Hammonds, Status: Pen, Time: 10:30 AM FUVACUPUNC, Provider: Griselda Hammonds, Status: Pen, Time: 10:30 AM [facility] Work Phone: Start: 01-27-2022 FUVACUPUNC, Provider: Griselda Hammonds, Status: Pen, Time: 10:30 AM FUVACUPUNC, Provider: Griselda aHmmonds, Status: Pen, Time: 10:30 AM [facility] Work Phone: Start: 01-20-2022 FUVACUPUNC, Provider: Griselda Hammonds, Status: Pen, Time: 3:00 PM FUVACUPUNC, Provider: Griselda Hammonds, Status: Pen, Time: 3:00 PM [facility] Work Phone: Start: 01-12-2022 NPV, Provider: Daniel Jimenez, Status: Pen, Time: 11:00 AM NPV, Provider: Daniel Jimenez, Status: Pen, Time: 11:00 AM [facility] 250 DO Work Phone: Start: 12-24-2021 VIRFUVHOME, Provider: Joana Tejeda, Status: Pen, Time: 8:00 AM VIRFUVHOME, Provider: Joana Tejeda, Status: Pen, Time: 8:00 AM [facility] Work Phone: Start: 12-17-2021 VIRFUVHOME, Provider: Zoie Crump, Status: Pen, Time: 9:30 AM VIRFUVHOME, Provider: Zoie Crump, Status: Pen, Time: 9:30 AM YC-Ailvoyhxe-Pqnjyvah B 101 Work Phone: Start: 12-16-2021 FUVACUPUNC, Provider: Griselda Hammonds, Status: Pen, Time: 10:30 AM FUVACUPUNC, Provider: Griselda Hammonds, Status: Pen, Time: 10:30 AM [facility] Work Phone: Start: 12-15-2021 Patient encounter procedure FUVCOVID, Provider: [id number] [facility] RM1,[id number], Status: Pen, Time: 11:30 AM [facility] [address] [place] Work Phone: Start: 12-11-2021 NPV, Provider: Daniel Jimenez, Status: Pen, Time: 11:30 AM NPV, Provider: Daniel Jimenez, Status: Pen, Time: 11:30 AM [facility] Work Phone: Start: 12-02-2021 FUVACUPUNC, Provider: Griselda Hammonds, Status: Pen, Time: 10:30 AM FUVACUPUNC, Provider: Griselda Hammonds, Status: Pen, Time: 10:30 AM [facility] Work Phone: Start: 11-25-2021 FUVACUPUNC, Provider: Griselda Hammonds, Status: Pen, Time: 10:00 AM FUVACUPUNC, Provider: Griselda Hammonds, Status: Pen, Time: 10:00 AM [facility] Work Phone: Start: 11-18-2021 FUVACUPUNC, Provider: Griselda Hammonds, Status: Pen, Time: 10:30 AM FUVACUPUNC, Provider: Griselda Hammonds, Status: Pen, Time: 10:30 AM MG-Pulm [facility] 3100 Work Phone: Start: 11-12-2021 VIRFUVHOME, Provider: Joana Tejeda, Status: Pen, Time: 3:30 PM VIRFUVHOME, Provider: Joana Tejeda, Status: Pen, Time: 3:30 PM [facility] Work Phone: Start: 11-12-2021 FUVACUPUNC, Provider: Yakelin Acosta, Status: Pen, Time: 10:00 AM FUVACUPUNC, Provider: Yakelin Acosta, Status: Pen, Time: 10:00 AM MG-Pulm [facility] 3100 Work Phone: Start: 11-04-2021 FUVACUPUNC, Provider: Griselda Hammonds, Status: Pen, Time: 1:30 PM FUVACUPUNC, Provider: Griselda Hammonds, Status: Pen, Time: 1:30 PM MG-Pulm [facility] 3100 Work Phone: Start: 11-04-2021 HOLTER MON, Provider: RAINA ROOT SENIOR RESEARCH MANAGER 1,[id number], Status: Pen, Time: 10:30 AM HOLTER MON, Provider: RAINA ROOT SENIOR RESEARCH MANAGER 1,[id number], Status: Pen, Time: 10:30 AM [facility] [address] [place] Work Phone: Start: 10-24-2021 VIRNPVHOME, Provider: Lissa Young, Status: Pen, Time: 2:00 PM VIRNPVHOME, Provider: Lissa Young, Status: Pen, Time: 2:[address] Work Phone: Start: 10-16-2021 VIRNPVPAPIE, Provider: Joana Tejeda, Status: Pen, Time: 3:00 PM VIRNPVKIARRA, Provider: Joana Tejeda, Status: Pen, Time: 3:00 PM [facility] Work Phone: Start: 10-16-2021 FUVACUPUNC, Provider: Griselda Hammonds, Status: Pen, Time: 11:30 AM FUVACUPUNC, Provider: Griselda Hammonds, Status: Pen, Time: 11:30 AM -[facility] 3100 Work Phone: Start: 10-14-2021 NPVGENERAL, Provider: Xavier Mai, Status: Pen, Time: 8:30 AM NPVGENERAL, Provider: Xavier Mai, Status: Pen, Time: 8:[address] Work Phone: Start: 04-26-2021 ADVANCE DIRECTIVE DISCUSSION ADVANCE DIRECTIVE DISCUSSION [facility] Start: 02-07-2021 Screening for malignant neoplasm of breast Mammogram [facility] Start: 12-25-2020 Influenza vaccination INFLUENZA (#1) [facility] Start: 11-29-2020 COVID-19 VACCINE (3 - Booster for Pfizer series) COVID-19 VACCINE (3 - Booster for Pfizer series) [facility] Start: 09-13-2020 BONE DENSITY BONE DENSITY [facility] Start: 09-13-2020 PNEUMOCOCCAL: 65+ (1 - PCV) PNEUMOCOCCAL: 65+ (1 - PCV) [facility] Start: 09-13-2020 PNEUMOVAX AGE 65 AND OVER WITH 5YR LOOKBACK (#1) PNEUMOVAX AGE 65 AND OVER WITH 5YR LOOKBACK (#1) [facility] Start: 09-13-2005 SHINGRIX VACCINE (1 of 2) SHINGRIX VACCINE (1 of 2) [facility] Start: 09-13-2005 Zoster Vaccines (1 of 2) Zoster Vaccines (1 of 2) [facility] Start: 09-13-2000 COLOGUARD (FIT-DNA) COLOGUARD (FIT-DNA) [facility] Start: 09-13-2000 Colonoscopy COLONOSCOPY [facility] Start: 09-13-2000 COLORECTAL CANCER SCREENING COLORECTAL CANCER SCREENING [facility] Start: 09-13-[address] COLONOGRAPHY [facility] Start: 09-13-2000 DIABETES SCREEN DIABETES SCREEN [facility] Start: 09-13-2000 FECAL OCCULT BLOOD FECAL OCCULT BLOOD [facility] Start: 09-13-2000 LIPID SCREEN LIPID SCREEN [facility] Start: 09-13-2000 SIGMOIDOSCOPY SIGMOIDOSCOPY [facility] Start: 1995 Mammography MAMMOGRAM [facility] Start: 09-13-1974 Urine microalbumin profile DTAP,TDAP,TD (1 - Tdap) [facility] Start: 09-13-1973 Diabetes mellitus screening Diabetes Screening [facility] Start: 09-13-1973 HEPATITIS C SCREENING HEPATITIS C SCREENING [facility] Start: 09-13-1973 Hepatitis C screening Hepatitis C Screening [facility] Start: 09-13-1973 HIV SCREENING HIV SCREENING [facility] Start: 1967 Adult depression screening assessment DEPRESSION SCREENING [facility] Start: 09-13-1960 COVID-19 VACCINE (1) COVID-19 VACCINE (1) [facility] Start: 1955 Lipid panel Lipid Panel [facility] Start: 1955 Medicare Annual Wellness Visit Medicare Annual Wellness Visit (AWV) [facility] Start: 1955 Screening for malignant neoplasm of colon [facility] Start: 1955 Screening for osteoporosis Bone Density Scan [facility] Immunizations Immunization Date Immunization Notes Care Provider Fa cili 03-10-2022 Fluad Quadrivalent 0 .5 ML Intramuscular Prefilled Syringe Inocencio Rosado Work Phone: [facility] 03-10-2022 pneumococcal polysaccharide vaccine, 23 valent Inocencio Rosado Work Phone: [facility] 02-04-2022 Pfizer COVID-19 Vac Bivalent 30 MCG/0.3ML Intramuscular Suspension Inocencio Rosado Work Phone: [facility] Work Phone: 08-08-2021 Comirnaty 30 MCG/0.3 ML Intramuscular Suspension Referring Provider Unknown [facility] [address] [place] Work Phone: 08-08-2021 Pfizer-BioNTech COVI D-19 Vacc 30 MCG/0.3ML Intramuscular Suspension Referring Provider Unknown [facility] [address] [place] Work Phone: 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: Series: 01-24-2021 Fluad Quadrivalent 0 .5 ML Intramuscular Prefilled Syringe Referring Provider Unknown [facility] 01-24-2021 influenza, seasonal, injectable MD Inocencio Rosado Work Phone: [facility] 01-24-2021 pneumococcal conjuga te vaccine, 13 valent Referring Provider Unknown [facility] 06-29-2020 Pfizer-BioNTech COVI D-19 Vacc 30 MCG/0.3ML Intramuscular Suspension Referring Provider Unknown [facility] 06-08-2020 Pfizer-BioNTech COVI D-19 Vacc 30 MCG/0.3ML Intramuscular Suspension Referring Provider Unknown [facility] 01-24-2020 influenza, injectabl e, quadrivalent, preservative free Referring Provider Unknown [facility] Payers Date Payer Category Payer Self-pay [id number] 2022 Medicare [id number] 2022 Unknown [id number] 2020 Medicare MEDICARE MEDICAR E A AND B [id number] 2020-Present [phone] [address] [address] [place] [address] Medicare [id number]. [id number] 2020 Medicare [id number]. 1.13.647.2.7.3. [id number] 2020 Unknown MMO MMO MEDICARE SUPPLEMENT [id number] 2020-Present [phone] [address] [place] [address] Indemnity [id number] [id number]. [id number] 1955 Unknown [id number] 2.16.840.1.869770.3.579.2. 1955 Unknown [id number] 2.16.840.1.219358.3.579.2. 1955 Unknown [id number] 2.16.840.1.136222.3.579.2. 1955 Unknown [id number] 2.16.840.1.722419.3.579.2.1067 1955 Unknown [id number] 2.16.840.1.978726.3.579.2.1067 1955 Unknown [id number] 2.16.840.1.948062.3.579.2.1067 1955 Unknown [id number] 2.16.840.1.512077.3.579.2.1067 1955 Unknown [id number] 2.16.840.1.246636.3.579.2.1067 1955 Unknown [id number] 2.16.840.1.859971.3.579.2.1067 1955 Unknown [id number] 2.16.840.1.388053.3.579.2.1067 1955 Unknown [id number] 2.16.840.1.074750.3.579.2. 1955 Unknown [id number] 2.16.840.1.166057.3.579.2. 1955 Unknown [id number] 2.16.840.1.918592.3.579.2. 1955 Unknown [id number] 2.16.840.1.654533.3.579.2. 1955 Unknown [id number] 2.16.840.1.915316.3.579.2. 1955 Unknown [id number] 2.16.840.1.431903.3.579.2. 1955 Unknown [id number] 2.16.840.1.513045.3.579.2. 1955 Unknown [id number] 2.16.840.1.290369.3.579.2. 1955 Unknown [id number] 2.16.840.1.657967.3.579.2. 1955 Unknown [id number] 2.16.840.1.956404.3.579.2. 1955 Unknown [id number] 2.840.1.633066.3.579.2. 1955 Unknown [id number] 2.16840.1.722909.3.579.2. 1955 Unknown [id number] 2..840.1.367910.3.579.2. 1955 Unknown [id number] 2.16.840.1.484105.3.579.2. 1955 Unknown [id number] 2.16.840.1.710816.3.579.2. 1955 Unknown [id number] 2.16840.1.919950.3.579.2. 1955 Unknown [id number] 2.16.840.1.835301.3.579.2. 1955 Unknown [id number] 2.16.840.1.119805.3.579.2. 1955 Unknown [id number] 2.16.840.1.457605.3.579.2. 1955 Unknown [id number] 2.16.840.1.461378.3.579.2.356 1955 Unknown [id number] 2.16.840.1.250252.3.579.2.356 1955 Unknown [id number] 2.16.840.1.621865.3.579.2. 1955 Unknown [id number] 2.16.840.1.707951.3.579.2. 1955 Unknown [id number] 2.16.840.1.604347.3.579.2. 1955 Unknown [id number] 2.16840.1.929797.3.579.2. 1955 Unknown [id number] 2.16840.1.142035.3.579.2. 1955 Unknown [id number] 2.840.1.761173.3.579.2. 1955 Unknown [id number] 2.16840.1.804752.3.579.2. 1955 Unknown [id number] 2.16840.1.041676.3.579.2. 1955 Unknown [id number] 2.16840.1.548851.3.579.2. 1955 Unknown [id number] 2.16840.1.642203.3.579.2. 1955 Unknown [id number] 2.16.840.1.198019.3.579.2. 1955 Unknown [id number] 2.16.840.1.453029.3.579.2. 1955 Unknown [id number] 2.16.840.1.474234.3.579.2. 1955 Unknown [id number] 2.16840.1.366135.3.579.2. 1955 Unknown [id number] 2.16.840.1.749677.3.579.2.718 1955 Unknown [id number] 2.16.840.1.430462.3.579.2.8 1955 Unknown [id number] 2.16.840.1.887128.3.579.2. 1955 Unknown [id number] 2.16.840.1.577871.3.579.2.8 1955 Unknown [id number] 2.16.840.1.141924.3.579.2.8 1955 Unknown [id number] 2.16.840.1.012449.3.579.2. Self-pay 112 Self-pay 1234 Unknown Unknown [id number] 2.16.840.1.574602.3.579.2.531 Social History Date Type Detail Facility Tobacco smoking stat us FLIS Tobacco smoking consumption unknown [facility] Start: 1955 Sex Assigned At Not on file [facility] Start: 07-08-2021 End: 05-24-2023 Exposure to SARS-CoV-2 (event) Not sure [facility] Start: 08-06-2021 End: 05-24-2023 Tobacco smoking status FLIS Never smoked tobacco [facility] Start: 08-06-2021 End: 05-24-2023 Tobacco use and exposure Smokeless tobacco non-user [facility] Start: 1955 Sex Assigned At Female [facility] Work Phone: 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 Work Phone: Start: 05-24-2023 Alcohol Comment ocassionally [facility] Work Phone: Gender identity Not on file [facility] Work Phone: Start: 01-11-2023 Sexual orientation Choose not to dis close [facility] Work Phone: Clinical Notes 02-24-2021 to 12-08-2023 Daniel Jimenez, DO - 05/24/2023 3:00 PM ESTPatient InstructionsPatient InstructionsNancy Villalta, DO - 08/06/2021 9:30 AM EDTTelephone Encounter - Joy Kearney - 07/24/2021 4:36 PM EDT Note Date & Type Note Facility 12-08-2023 Note - From: NICOLE PETERS DO To: [facility] Clinical Pool ([facility]); Sent: 12/07/2023 14:53:55 EDT Subject: FW: Medication Management Due Date/Time: 12/08/2023 14:28:00 EDT Caller Name: ROCKY CHAR; Caller Number: , --------- [id number] To: NICOLE PETERS DO Sent: December 07, 2023 1:28:26 PM CDT Subject: Medication Management Due: December 08, 2023 10:00:01 AM CDT On Hold Pending Signature Drug: eszopiclone (eszopiclone 3 mg oral tablet), TAKE 1 TABLET BY MOUTH AT BEDTIME NEEDED FOR INSOMNIA Quantity: 30 tab(s) Days Supply: 0 Refills: 0 Substitutions Allowed Notes from Pharmacy: Dispensed Drug: eszopiclone (eszopiclone 3 mg oral tablet), TAKE 1 TABLET BY MOUTH AT BEDTIME NEEDED FOR INSOMNIA Quantity: 30 tab(s) Days Supply: 30 Refills: 0 Substitutions Allowed Notes from Pharmacy: On Hold Pending Signature Drug: LORazepam (LORazepam 0.5 mg oral tablet), TAKE 1 TABLET BY MOUTH 2 TIMES A DAY NEEDED FOR ANXIETY Quantity: 60 tab(s) Days Supply: 0 Refills: 0 Substitutions Allowed Notes from Pharmacy: Dispensed Drug: LORazepam (LORazepam 0.5 mg oral tablet), TAKE 1 TABLET BY MOUTH 2 TIMES A DAY NEEDED FOR ANXIETY Quantity: 60 tab(s) Days Supply: 30 Refills: 0 Substitutions Allowed Notes from Pharmacy: --------- From: Radha Ferraro To: [facility] [id number] Sent: 12/08/2023 13:52:25 EDT Subject: FW: Medication Management Not Approved: proposed to provider eszopiclone (ESZOPICLONE 3 MG TABLET) TAKE 1 TABLET BY MOUTH AT BEDTIME NEEDED FOR INSOMNIA Qty: 30 tab(s) Days Supply: 30 Refills: 0 Substitutions Allowed Route To Pharmacy - [facility] [id number] Signed by Radha Ferraro Not Approved: proposed to provider LORazepam (LORazepam 0.5 MG TABLET) TAKE 1 TABLET BY MOUTH 2 TIMES A DAY NEEDED FOR ANXIETY Qty: 60 tab(s) Days Supply: 30 Refills: 0 Substitutions Allowed Route To [facility] [id number] Signed by Radha Ferraro [facility] 11-10-2023 Note Patient Education Ma terials Follows:and Gynecology Urinary Tract Infection, Adult A urinary tract infection (UTI) is an infection of any part of the urinary tract. The urinary tract includes: ? The kidneys. ? The ureters. ? The bladder. ? The urethra. These organs make, store, and get rid of pee (urine) in the body. What are the causes? This infection is caused by germs (bacteria) in your genital area. These germs grow and cause swelling (inflammation) of your urinary tract. What increases the risk? The following factors may make you more likely to develop this condition: ? Using a small, thin tube (catheter) to drain pee. ? Not being able to control when you pee or poop (incontinence). ? Being female. If you are female, these things can increase the risk: ? Using these methods to prevent : ? A medicine that kills sperm (spermicide). ? A device that blocks sperm (diaphragm). ? Having low levels of a female hormone (estrogen). ? Being . You are more likely to develop this condition if: ? You have genes that add to your risk. ? You are sexually active. ? You take antibiotic medicines. ? You have trouble peeing because of: ? A prostate that is bigger than normal, if you are male. ? A blockage in the part of your body that drains pee from the bladder. ? A kidney stone. ? A nerve condition that affects your bladder. ? Not getting enough to drink. ? Not peeing often enough. ? You have other conditions, such as: ? Diabetes. ? A weak disease-fighting system (immune system). ? Sickle cell disease. ? Gout. ? Injury of the spine. What are the signs or symptoms? Symptoms of this condition include: ? Needing to pee right away. ? Peeing small amounts often. ? Pain or burning when peeing. ? Blood in the pee. ? Pee that smells bad or not like normal. ? Trouble peeing. ? Pee that is cloudy. ? Fluid coming from the vagina, if you are female. ? Pain in the belly or lower back. Other symptoms include: ? Vomiting. ? Not feeling hungry. ? Feeling mixed up (confused). This may be the first symptom in older adults. ? Being tired and grouchy (irritable). ? A fever. ? Watery poop (diarrhea). How is this treated? ? Taking antibiotic medicine. ? Taking other medicines. ? Drinking enough water. In some cases, you may need to see a specialist. Follow these instructions at home: Medicines ? Take izoh-qau-pvlgguu and prescription medicines only as told by your doctor. ? If you were prescribed an antibiotic medicine, take it as told by your doctor. Do not stop taking it even if you start to feel better. General instructions ? Make sure you: ? Pee until your bladder is empty. ? Do not hold pee for a long time. ? Empty your bladder after sex. ? Wipe from front to back after peeing or pooping if you are a female. Use each tissue one time when you wipe. ? Drink enough fluid to keep your pee pale yellow. ? Keep all follow-up visits. Contact a doctor if: ? You do not get better after 1?2 days. ? Your symptoms go away and then come back. Get help right away if: ? You have very bad back pain. ? You have very bad pain in your lower belly. ? You have a fever. ? You have chills. ? You feeling like you will vomit or you vomit. Summary ? A urinary tract infection (UTI) is an infection of any part of the urinary tract. ? This condition is caused by germs in your genital area. ? There are many risk factors for a UTI. ? Treatment includes antibiotic medicines. ? Drink enough fluid to keep your pee pale yellow. This information is not intended to replace advice given to you by your health care provider. Make sure you discuss any questions you have with your health care provider. Document Revised: 11/22/2020 Document Reviewed: 11/22/2020 [employer] Patient Education ? 2022 [place]. [facility] 11-08-2023 Note - From: NICOLE PETERS DO To: [facility] Clinical Pool ([facility]); Sent: 11/08/2023 07:40:19 EDT Subject: FW: Medication Management Due Date/Time: 11/08/2023 21:09:00 EDT Caller Name: FLAQUITA ROBERTSON; Caller Number: H , --------- [facility] [id number] To: NICOLE PETERS DO Sent: November 07, 2023 8:09:49 PM CDT Subject: Medication Management Due: November 08, 2023 12:07:33 AM CDT On Hold Pending Signature Drug: eszopiclone (eszopiclone 3 mg oral tablet), TAKE 1 TABLET BY MOUTH AT BEDTIME NEEDED FOR INSOMNIA Quantity: 30 tab(s) Days Supply: 0 Refills: 0 Substitutions Allowed Notes from Pharmacy: Dispensed Drug: eszopiclone (eszopiclone 3 mg oral tablet), TAKE 1 TABLET BY MOUTH AT BEDTIME NEEDED FOR INSOMNIA Quantity: 30 tab(s) Days Supply: 30 Refills: 0 Substitutions Allowed Notes from Pharmacy: --------- From: Radha Ferraro To: [facility] [id number] Sent: 11/08/2023 08:28:25 EDT Subject: FW: Medication Management Not Approved: proposed to provider eszopiclone (ESZOPICLONE 3 MG TABLET) TAKE 1 TABLET BY MOUTH AT BEDTIME NEEDED FOR INSOMNIA Qty: 30 tab(s) Days Supply: 30 Refills: 0 Substitutions Allowed Route To Pharmacy - [facility] [id number] Signed by Radha Ferraro [facility] 11-03-2023 Note - From: NICOLE PETERS DO To: [facility] Clinical Pool ([facility]); Sent: 11/03/2023 07:34:17 EDT Subject: FW: Medication Management Due Date/Time: 11/03/2023 17:13:00 EDT Caller Name: FLAQUITA ROBERTSON; Caller Number: H , --------- [facility] [id number] To: NICOLE PETERS DO Sent: November 02, 2023 4:13:46 PM CDT Subject: Medication Management Due: November 03, 2023 12:02:00 AM CDT On Hold Pending Signature Drug: LORazepam (LORazepam 0.5 mg oral tablet), TAKE 1 TABLET BY MOUTH 2 TIMES A DAY NEEDED FOR ANXIETY Quantity: 60 tab(s) Days Supply: 0 Refills: 0 Substitutions Allowed Notes from Pharmacy: Dispensed Drug: LORazepam (LORazepam 0.5 mg oral tablet), TAKE 1 TABLET BY MOUTH 2 TIMES A DAY NEEDED FOR ANXIETY Quantity: 60 tab(s) Days Supply: 30 Refills: 0 Substitutions Allowed Notes from Pharmacy: --------- From: Griselda Smith MA To: [facility] [id number] Sent: 11/03/2023 08:43:22 EDT Subject: FW: Medication Management Not Approved: Refill not appropriate, proposal sent to provider LORazepam (LORazepam 0.5 MG TABLET) TAKE 1 TABLET BY MOUTH 2 TIMES A DAY NEEDED FOR ANXIETY Qty: 60 tab(s) Days Supply: 30 Refills: 0 Substitutions Allowed Route To [facility]acy [facility]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 been seen by a headache specialist at [facility], who diagnosed her with occipital neuralgia; she stated that she did 5 weeks of PT, and then plateaued ; the PT also attempted dry needling , which she found ineffective; she stated that she will be getting a second opinion with neurology next week; patient also visited a chiropractor in [place] who is a cervical specialist ; she was told that her neck was off by 3 degrees but after her adjustment she is now aligned Patient also complains of ongoing sleep issues, coughing diagnosed as reflux, mood swings, and fatigueand noted that she is getting a second opinion with neurology next week [employer] Phone: 08-03-2021 History of Present illness Narrative cc: migrainePatient stated that she is not so great today; she stated that she is currently experiencing a migraine, most likely due to stress; patient stated that her mother has dementia, and she has been busy taking care of her, which has been difficultPatient stated that she is currently experiencing pain on the right side of her head, rating it 4/10; she noted that her migraines had been improving until she needed to take some time away from treatment in order to care for her mother; she also mentioned that she is feeling nauseated as well as stressed kind of all over She had an appointment yesterday with the COVID recovery clinic, noting that she has made good progress , however stress can exacerbate her long COVID symptomsInitial intake (10/08/2021)Pt came in today seeking treatment for her chronic migraine as well as lingering COVID-19 symptoms; she was referred by Flower Nguyễn CNP, from the COVID recovery clinic; please refer to 's notes for more extensive detailsPatient was diagnosed with COVID 03/16; amongst her lingering symptoms, her main complaint is migraine; patient stated that the pain level varies in intensity throughout the day, though it is generally worse at the end of the day; she stated that she is sensitive to light and noise, and migraine episodes generally cause nausea, vomiting, lightheadedness, and disorientation; the pain is primarily on her right side; she rates her pain today as 4/10; patient reports having tried Emgality, Ajovy, and UbrelvyShe has been seen by a headache specialist at [facility], who diagnosed her with occipital neuralgia; she stated that she did 5 weeks of PT, and then plateaued ; the PT also attempted dry needling , which she found ineffective; she stated that she will be getting a second opinion with neurology next week; patient also visited a chiropractor in [place] who is a cervical specialist ; she was told that her neck was off by 3 degrees but after her adjustment she is now aligned Patient also complains of ongoing sleep issues, coughing diagnosed as reflux, mood swings, and fatigueand noted that she is getting a second opinion with neurology next week [employer] Phone: 07-25-2021 History of Present illness Narrative Patient being assessed today for initial evaluation and second opinion regarding migraine headaches. Patient's was being followed by [facility] neurology and was last seen in July by them. She is now seeking a second opinion as she has had no relief. Patient reports that she had a history of migraines 30 years ago and then was diagnosed with COVID in February 2021 and since that time she has had a headache every day. It varies in intensity and increases throughout the day. The intensity also increases with any type of activity. She states that it is behind her right eye or the right amish area and describes it as an aching and burning sensation. Endorses nausea. Endorses vomiting. Endorses photophobia. Endorses phonophobia. Endorses lightheadedness. Denies vision changes. Endorses speech and language deficits. Denies numbness and tingling. She has tried multiple pharmaceutical interventions in the past. These include beta-wilmar, Depakote, Emgality, Ajovy, butalbital, Ubrelvy which have all been ineffective. She is currently on Effexor, gabapentin, rizatriptan all of which are ineffective. We will titrate her down to discontinue the Effexor as well as the gabapentin. Verbally explained this to patient who verbalized understanding. Okay for patient to resume the Cymbalta that she was previously taking. Patient also had CT, MRI, MRV, lumbar puncture and she reports those were all within normal limits. Patient also is established with [facility] and receives acupuncture and has a second appointment pending with them. In order to try to break her daily cycle that she has been would like to try her on a high dose of tapering prednisone and a 5-day course of ketorolac. We will also try her on preventative of Qulipta. Discussed role of medicine, controlled substance policy, abuse potential, importance of taking medications, potential risks, benefits, and precautions to be taken. Reviewed sleep hygiene and dietary modifications. Follow-up in 2 to 3 months.This note was created with voice recognition software and was not corrected for typographical or grammatical errors [id number] [employer] Phone: 07-24-2021 Miscellaneous Notes Received reports from CT myelogram of complete spine. Uploaded to chart in [employer]. documented in this encounter [facility] 07-15-2021 Miscellaneous Notes Images from the original note were not included. OSH NI referral from Dr. Wilmer Carrillo, [facility], [place], [place] DX: intractable headache,migraines, borderline intracranial hypotension RFV: Evaluate and treat Scheduling instructions: Patient can see first available Headache specialist Patient to have CT myelogram spine [facility] with Dr. Ingrid. Outside records will be uploaded to chart in Scanned Docs. documented in this encounter [facility] 06-05-2021 History of Present illness Narrative cc: migrainePatient stated that she feels her pain levels are lowering overall , and that she is seeing benefit and improvement with acupuncture; she stated that her pain level is approximately 2/10, elevating to 4/10, but then reduces back to 2/10She stated that driving does make her migraines worse, and that she is experiencing some pain todayShe also noted that her venlafaxine was increased last week to 150 mg; patient reports no adverse side effectsPatient mentioned that her stress levels are currently elevated, noting that her fell and bruised his ribInitial intake (10/08/2021)Pt came in today seeking treatment for her chronic migraine as well as lingering COVID-19 symptoms; she was referred by Flower Nguyễn CNP, from the COVID recovery clinic; please refer to 's notes for more extensive detailsPatient was diagnosed with COVID 03/16; amongst her lingering symptoms, her main complaint is migraine; patient stated that the pain level varies in intensity throughout the day, though it is generally worse at the end of the day; she stated that she is sensitive to light and noise, and migraine episodes generally cause nausea, vomiting, lightheadedness, and disorientation; the pain is primarily on her right side; she rates her pain today as 4/10; patient reports having tried Emgality, Ajovy, and UbrelvyShe has been seen by a headache specialist at [facility], who diagnosed her with occipital neuralgia; she stated that she did 5 weeks of PT, and then plateaued ; the PT also attempted dry needling , which she found ineffective; she stated that she will be getting a second opinion with neurology next week; patient also visited a chiropractor in [place] who is a cervical specialist ; she was told that her neck was off by 3 degrees but after her adjustment she is now aligned Patient also complains of ongoing sleep issues, coughing diagnosed as reflux, mood swings, and fatigueand noted that she is getting a second opinion with neurology next week [facility] [address] [facility] Phone: 02-24-2021 History of Present illness Narrative Covid-19 infection date: 02/24/2021 (sx: cough, fatigue, headache - no hospitalization, treated with monoclonal antibody infusion in [place])Covid-19 vaccine status: Pfizer 06/07/20, 06/29/20, 08/08/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 Inocencio Rosado, local Neurologist Dr. Wilmer Carrillo, Francisca Taylor, [employer]LECT[employer] PROJECT MANAGER, [facility] scores:PHQ-9: 21GAD-7: 9Sleep Wellness: 9 snoresFSS average: 5.778Modified ECog average: 2.333MOCA: yo female with h/o COVID-19 in February 2021, anxiety and depression, GERD, obesity, insomnia, migraines, occipital neuralgia, presents to establish care at [facility] with c/o fatigue, body aches, migraines, cognitive changes, feeling disoriented/light headed, nausea, vertigo, depression, palpitations.Fatigue, can sleep all day, tries to stay busy but has to lay down, yesterday was laying down or sleeping most of the daySleeps well at night, 45% rested in the morning, snores, snoring arouses her from deep sleep occasionally, not waking up SOBHad sleep apnea test 6 years ago due to snoring and insomnia, was normalHas taken sleeping pills for a long time and wanted to get off of thisShe is on gabapentin which made her tired when she first took this, prescribed by NeurologyAlso went through PT for occipital neuralgiaMigraine pain on right forehead, light sensitivity, noise sensitivity, feels light headed and disorientedFeels that bracing herself for migraines brought on occipital neuralgiaPT treatments included massage, exercises, dry needlingMassage therapist once per month, specializes in cranial massage therapyContacted Dr. Villalta to let him know that there is not significant change, responded that they could increase the gabapentin but this is making her tired, so prescribed muscle relaxer which is not helpingFUV is in October with Neurology [facility] 20s, then were stress related, lasted 24 hours and resolvedDaily headaches since COVID is causing her to feel stressed and depressedWhen pain level is severe then she feels hyper/agitated, was diagnosed with panic attack in ED at one of these episodes and was prescribed Ativan PRN, used 40tabs since prescription in that panic is brought on by severity of pain, cannot tolerate it any longerDenies SI as she cannot do this to her familyPrior to COVID, she was on Cymbalta for depression and anxiety, Neurology switched this to Effexor to help with headaches, feels this is not effective enough for depression so dose was increased, still not adequately treating mood and not improving headachesHad her vision checked, vision fluctuates, sometimes goes without glasses due to migraines, sometimes uses stronger glassesVison in right is being affected more so than the leftCognitive changes, describes them as word finding difficulties, cannot do math without calculator anymore, cannot keep checkbooks to balance at home and work, prior to COVID she was much more fluid in her speechCognitive changes seem to be worse when she is fatiguedFeeling disoriented at times as well, describes this as feeling light headed, sometimes dizzy, unbalanced, gait is offFeeling disoriented/light headed happens out of nowhere, when she tilts her head back or is at the salon and when she stands up, or when she hugs her and then he steps away, also gets light headed when things are moving in her environment, has to close her eyesDue to current headaches cannot undergo vestibular rehab at this timeHad several CT scans MRI/MRV, spinal tap and looking for leaks in her spinal columnMedications that have been tried and are not effective: prednisone, propranolol, toradol, Phenergan, Adjovy, verapamil, topiramate, indomethacin, emgality, ubrelvy, Ativan, reglanUsed to exercise with Dez, yoga, bety chi, pilates, HIT but has not been able to do this since COVID, Gained weight, cannot fit clothes anymore, would like to restart exercises with a marine mammal trainer who specializes in helping patients with BOX SEALING MACHINE FEEDER dysfunctionHas to lay on her left, cannot lay on her right side due to headacheOverall has been suffering from body aches since COVID, unsure if r/t more sedentary lifeNausea occurs when she is feeling light headedConstipation eased up since not taking iron supplements anymoreWas on iron supplements due to hemorrhoid bleedingBack on omeprazole due to inflammation in stomach and related coughing and acid reflux, follows with PCP on thatTinnitus is not new, has dissipatedDidn t lose taste or smellNo respiratory problemsOccasional palpitations or heart racing, not correlated with feeling light headedHeart racing happens 10 times in a month, sitting down and all of a sudden feels her heart racing, at times with activity as wellAlso notices that when she is activeRelevant Hx:-05/2021 ED for headache and panic attack-07/2021 Neurology at [facility] for headaches suspects cervical paraspinal mm spasms as cause of right-sided occipital neuralgia that seems to be triggering recurrence of migrainous headaches with autonomic features, started gabapentin, future options include CHRISTELLE block or cervical facet block through pain managementImaging:-03/2021 CXR clear-05/2021 MRI/MRV brain shows chronic age-related neurodegenerative changes, no acute findings-06/2021 CT C-spine shows mild vertebral malalighnment, disc space narrowing and degenerative changes, anterior epidural defects r/t posterior disc bulging in the lower thoracic and lumbar spineBlood work:-06/2021 spinal tap-08/2021 ferritin 50, iron studies, CBC/D with Hct 42.8%, TPO, thyroglobulin AntbExercise: 0Diet:Weight pre/post-COVID: 150/160Substance use: deniesSocial: marriedFamily Hx: DM, CAD, rectal CA, HTN, depressionSurgical Hx: hysterectomy 2001, squamous cell carcinoma [facility] [address] [place] Work Phone: 02-24-2021 History of Present illness Narrative Covid-19 infection date: 02/24/2021 (sx: cough, fatigue, headache - no hospitalization, treated with monoclonal antibody infusion in [place])Covid-19 vaccine status: [employer] 06/07/20, 06/29/20, 08/08/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 Inocencio Rosado, local Neurologist Dr. Wilmer Carrillo, Francisca Taylor, ELECTRICAL CONSTRUCTION PROJECT MANAGER, [facility] scores:PHQ-9: 21GAD-7: 9Sleep Wellness: 9 snoresFSS average: 5.778Modified ECog average: 2.333MOCA: 6yo female with h/o COVID-19 in February 2021, anxiety and depression, GERD, obesity, insomnia, migraines, occipital neuralgia, [facility] with c/o fatigue, body aches, migraines, cognitive changes, feeling disoriented/light headed, nausea, vertigo, depression, palpitations.Fatigue, can sleep all day, tries to stay busy but has to lay down, yesterday was laying down or sleeping most of the daySleeps well at night, 45% rested in the morning, snores, snoring arouses her from deep sleep occasionally, not waking up SOBHad sleep apnea test 6 years ago due to snoring and insomnia, was normalHas taken sleeping pills for a long time and wanted to get off of thisShe is on gabapentin which made her tired when she first took this, prescribed by NeurologyAlso went through PT for occipital neuralgiaMigraine pain on right forehead, light sensitivity, noise sensitivity, feels light headed and disorientedFeels that bracing herself for migraines brought on occipital neuralgiaPT treatments included massage, exercises, dry needlingMassage therapist once per month, specializes in cranial massage therapyContacted Dr. Villalta to let him know that there is not significant change, responded that they could increase the gabapentin but this is making her tired, so prescribed muscle relaxer which is not helpingFUV is in October with Neurology at [facility] but [place] [facility] [place] [facility] opinion [place] her late teens/early 20s, then were stress related, lasted 24 hours and resolvedDaily headaches since COVID is causing her to feel stressed and depressedWhen pain level is severe then she feels hyper/agitated, was diagnosed with panic attack in ED at one of these episodes and was prescribed Ativan PRN, used 40tabs since prescription in JulyFe that panic is brought on by severity of pain, cannot tolerate it any longerDenies SI as she cannot do this to her familyPrior to [place], she was on Cymbalta for depression and anxiety, Neurology switched this to Effexor to help with headaches, feels this is not effective enough for depression so dose was increased, still not adequately treating mood and not improving headachesHad her vision checked, vision fluctuates, sometimes goes without glasses due to migraines, sometimes uses stronger glassesVison in right is being affected more so than the leftCognitive changes, describes them as word finding difficulties, cannot do math without calculator anymore, cannot keep checkbooks to balance at home and work, prior to COVID she was much more fluid in her speechCognitive changes seem to be worse when she is fatiguedFeeling disoriented at times as well, describes this as feeling light headed, sometimes dizzy, unbalanced, gait is offFeeling disoriented/light headed happens out of nowhere, when she tilts her head back or is at the salon and when she stands up, or when she hugs her and then he steps away, also gets light headed when things are moving in her environment, has to close her eyesDue to current headaches cannot undergo vestibular rehab at this timeHad several CT scans MRI/MRV, spinal tap and looking for leaks in her spinal columnMedications that have been tried and are not effective: prednisone, propranolol, toradol, Phenergan, Adjovy, verapamil, topiramate, indomethacin, emgality, ubrelvy, Ativan, reglanUsed to exercise with Dez, yoga, bety chi, pilates, HIT but has not been able to do this since COVID, Gained weight, cannot fit clothes anymore, would like to restart exercises with a marine mammal trainer who specializes in helping patients with BOX SEALING MACHINE FEEDER dysfunctionHas to lay on her left, cannot lay on her right side due to headacheOverall has been suffering from body aches since COVID, unsure if r/t more sedentary lifeNausea occurs when she is feeling light headedConstipation eased up since not taking iron supplements anymoreWas on iron supplements due to hemorrhoid bleedingBack on omeprazole due to inflammation in stomach and related coughing and acid reflux, follows with PCP on thatTinnitus is not new, has dissipatedDidn t lose taste or smellNo respiratory problemsOccasional palpitations or heart racing, not correlated with feeling light headedHeart racing happens 10 times in a month, sitting down and all of a sudden feels her heart racing, at times with activity as wellAlso notices that when she is activeRelevant Hx:-05/2021 ED for headache and panic attack-07/2021 Neurology at [facility] for headaches suspects cervical paraspinal mm spasms as cause of right-sided occipital neuralgia that seems to be triggering recurrence of migrainous headaches with autonomic features, started gabapentin, future options include CHRISTELLE block or cervical facet block through pain managementImaging:-03/2021 CXR clear-05/2021 MRI/MRV brain shows chronic age-related neurodegenerative changes, no acute findings-06/2021 CT C-spine shows mild vertebral malalighnment, disc space narrowing and degenerative changes, anterior epidural defects r/t posterior disc bulging in the lower thoracic and lumbar spineBlood work:-06/2021 spinal tap-08/2021 ferritin 50, iron studies, CBC/D with Hct 42.8%, TPO, thyroglobulin AntbExercise: 0Diet:Weight pre/post-COVID: 150/160Substance use: deniesSocial: marriedFamily Hx: DM, CAD, rectal CA, HTN, depressionSurgical Hx: hysterectomy 2001, squamous cell carcinoma 2020 [facility] Work Phone: 02-24-2021 History of Present illness Narrative Covid-19 infection date: 02/24/2021 (sx: cough, fatigue, headache - no hospitalization, treated with monoclonal antibody infusion in [place])Covid-19 vaccine status: Pfizer 06/07/20, 06/29/20, 08/08/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 Inocencio Rosado, local Neurologist Dr. Wilmer Carrillo, Francisca Taylor, ELECTRICAL CONSTRUCTION PROJECT MANAGER, [facility] scores:PHQ-9: 21GAD-7: 9Sleep Wellness: 9 snoresFSS average: 5.778Modified ECog average: 2.333MOCA: [age]yo female with h/o COVID-19 in February 2021, anxiety and depression, GERD, obesity, insomnia, migraines, occipital neuralgia, [facility] with c/o fatigue, body aches, migraines, cognitive changes, feeling disoriented/light headed, nausea, vertigo, depression, palpitations.Fatigue, can sleep all day, tries to stay busy but has to lay down, yesterday was laying down or sleeping most of the daySleeps well at night, 45% rested in the morning, snores, snoring arouses her from deep sleep occasionally, not waking up SOBHad sleep apnea test 6 years ago due to snoring and insomnia, was normalHas taken sleeping pills for a long time and wanted to get off of thisShe is on gabapentin which made her tired when she first took this, prescribed by NeurologyAlso went through PT for occipital neuralgiaMigraine pain on right forehead, light sensitivity, noise sensitivity, feels light headed and disorientedFeels that bracing herself for migraines brought on occipital neuralgiaPT treatments included massage, exercises, dry needlingMassage therapist once per month, specializes in cranial massage therapyContacted Dr. Villalta to let him know that there is not significant change, responded that they could increase the gabapentin but this is making her tired, so prescribed muscle relaxer which is not helpingFUV is in October with Neurology at [facility] but [facility] 20s, then were stress related, lasted 24 hours and resolvedDaily headaches since COVID is causing her to feel stressed and depressedWhen pain level is severe then she feels hyper/agitated, was diagnosed with panic attack in ED at one of these episodes and was prescribed Ativan PRN, used 40tabs since prescription in JulyFeels that panic is brought on by severity of pain, cannot tolerate it any longerDenies SI as she cannot do this to her familyPrior to COVID, she was on Cymbalta for depression and anxiety, Neurology switched this to Effexor to help with headaches, feels this is not effective enough for depression so dose was increased, still not adequately treating mood and not improving headachesHad her vision checked, vision fluctuates, sometimes goes without glasses due to migraines, sometimes uses stronger glassesVison in right is being affected more so than the leftCognitive changes, describes them as word finding difficulties, cannot do math without calculator anymore, cannot keep checkbooks to balance at home and work, prior to COVID she was much more fluid in her speechCognitive changes seem to be worse when she is fatiguedFeeling disoriented at times as well, describes this as feeling light headed, sometimes dizzy, unbalanced, gait is offFeeling disoriented/light headed happens out of nowhere, when she tilts her head back or is at the salon and when she stands up, or when she hugs her and then he steps away, also gets light headed when things are moving in her environment, has to close her eyesDue to current headaches cannot undergo vestibular rehab at this timeHad several CT scans MRI/MRV, spinal tap and looking for leaks in her spinal columnMedications that have been tried and are not effective: prednisone, propranolol, toradol, Phenergan, Adjovy, verapamil, topiramate, indomethacin, emgality, ubrelvy, Ativan, reglanUsed to exercise with Dez, yoga, bety chi, pilates, HIT but has not been able to do this since COVID, Gained weight, cannot fit clothes anymore, would like to restart exercises with a marine mammal trainer who specializes in helping patients with BOX SEALING MACHINE FEEDER dysfunctionHas to lay on her left, cannot lay on her right side due to headacheOverall has been suffering from body aches since COVID, unsure if r/t more sedentary lifeNausea occurs when she is feeling light headedConstipation eased up since not taking iron supplements anymoreWas on iron supplements due to hemorrhoid bleedingBack on omeprazole due to inflammation in stomach and related coughing and acid reflux, follows with PCP on thatTinnitus is not new, has dissipatedDidn t lose taste or smellNo respiratory problemsOccasional palpitations or heart racing, not correlated with feeling light headedHeart racing happens 10 times in a month, sitting down and all of a sudden feels her heart racing, at times with activity as wellAlso notices that when she is activeRelevant Hx:-05/2021 ED for headache and panic attack-07/2021 Neurology at [facility] for headaches suspects cervical paraspinal mm spasms as cause of right-sided occipital neuralgia that seems to be triggering recurrence of migrainous headaches with autonomic features, started gabapentin, future options include CHRISTELLE block or cervical facet block through pain managementImaging:-03/2021 CXR clear-05/2021 MRI/MRV brain shows chronic age-related neurodegenerative changes, no acute findings-06/2021 CT C-spine shows mild vertebral malalighnment, disc space narrowing and degenerative changes, anterior epidural defects r/t posterior disc bulging in the lower thoracic and lumbar spineBlood work:-06/2021 spinal tap-08/2021 ferritin 50, iron studies, CBC/D with Hct 42.8%, TPO, thyroglobulin AntbExercise: 0Diet:Weight pre/post-COVID: 150/160Substance use: deniesSocial: marriedFamily Hx: DM, CAD, rectal CA, HTN, depressionSurgical Hx: hysterectomy 2001, squamous cell carcinoma 2020 [facility] Work Phone: 02-24-2021 History of Present illness Narrative 66 y/o female with PMH anxiety, depression, migraines, insomnia, PASC presents for initial consultation. Referred by covid clinic, Erlin Nguyễn. 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 Lives with . Two children (42, 41- both live out of state). Accompanied by daughter, Radha. Social Support- familySchedule: unable to go to office since covid 02/2021 due to cognitive limitations and migraines.Goal of Visit: reduce chronic migraines- Tried acup and chiroSomatic Complaints:- Covi 02/24/2021- cough, fatigue, h/a- no hospitalization- tx with monoclonal antibody infusion- Migraines- right sided, associated with swelling to the right side of the face, upper back/neck tightness which led to occipital neuralgia.Since covid infection, has not had a day without pain. Pain level is 5-8/10 daily- nothing has been effective. Has tried many medications, PT with dry needling, massage, craniosacral massage. Activity causes symptoms to worsen- even with talking, thinking. Improves with sunglasses, noise reduction.- Trembling in arms and legs spontaneously.- weight gain- 10 lbs- fatigue- can sleep all day- nausea, heartburn- prior to covid, had belching, then after covid, she developed smoker's cough - Diarrhea and constipation- hx anemia, needed iron causing constipation; mild inflammation in esophagus and stomach per patient- started rabeprazoleSleep Hygiene: averages 8-10 hours, low energy levels. Sometimes has to sleep during the day (uses this as an escape). Sleep onset- 30+ minutes. Maintenance- 2-3x per night naturally, listens to audiobook. Recommend worrying journal. Wind down- video games on her phone. Coffee- one in AM. Discussed importance of sleep optimization for healing and recovery.Physical Activity: none. Used to be very active- 2-3x per week, HIIT, dez, jazzercise, yoga.Stress Management: Mom had a nervous break down when she was 16 y/o, and she had to take care of her younger sisters. of first . when young, two children by age 23, [place]-- felt depression begin. 2009- Dad had end-of-life health issues, and she was able to help him out. Granddaughter in [place] with Down syndrome and heart issues- had open heart surgery. 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 Sees psychiatrist and will see therapist for CBT and biofeedback.Discussed autonomic nervous system, acute vs. chronic stress in the body, neuroscience of mindfulness, and different mindfulness practices.Toxic Substance Use: noneNutrition: Interested in keto diet- discussed pros/cons. Daughter asked if certain food triggers could be aggravating migraines.Breakfast- protein shake with almond milk, PB2 or oatmeal with cinnamon, almond milk, berriesLunch- spinach salad with chicken, feta cheese, and blueberries with strawberry balsamic vinegarDinner- protein (pork, chicken, salmon, tilapia) an vegSnacks- yogurt, walnuts, [id number]-5-9 glasses of water; 1-2 coffees [facility] [address] [facility] Phone: 02-24-2021 History of Present illness Narrative Covid-19 infection date: 02/24/2021 (sx: cough, fatigue, headache - no hospitalization, treated with monoclonal antibody infusion in [place])Covid-19 vaccine status: Pfizer 06/07/20, 06/29/20, 08/08/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 Inocencio Rosado, local Neurologist Dr. Wilmer Carrillo, Francisca Taylor, ELECTRICAL CONSTRUCTION PROJECT MANAGER, [facility] scores:PHQ-9: 21GAD-7: 9Sleep Wellness: 9 snoresFSS average: 5.778Modified ECog average: 2.333MOCA: yo female with h/o COVID-19 in February 2021, anxiety and depression, GERD, obesity, insomnia, migraines, occipital neuralgia, [facility] with c/o fatigue, body aches, migraines, cognitive changes, feeling disoriented/light headed, nausea, vertigo, depression, palpitations.Fatigue, can sleep all day, tries to stay busy but has to lay down, yesterday was laying down or sleeping most of the daySleeps well at night, 45% rested in the morning, snores, snoring arouses her from deep sleep occasionally, not waking up SOBHad sleep apnea test 6 years ago due to snoring and insomnia, was normalHas taken sleeping pills for a long time and wanted to get off of thisShe is on gabapentin which made her tired when she first took this, prescribed by NeurologyAlso went through PT for occipital neuralgiaMigraine pain on right forehead, light sensitivity, noise sensitivity, feels light headed and disorientedFeels that bracing herself for migraines brought on occipital neuralgiaPT treatments included massage, exercises, dry needlingMassage therapist once per month, specializes in cranial massage therapyContacted Dr. Villalta to let him know that there is not significant change, responded that they could increase the gabapentin but this is making her tired, so prescribed muscle relaxer which is not helpingFUV is in October with Neurology at [facility] but [facility] 20s, then were stress related, lasted 24 hours and resolvedDaily headaches since COVID is causing her to feel stressed and depressedWhen pain level is severe then she feels hyper/agitated, was diagnosed with panic attack in ED at one of these episodes and was prescribed Ativan PRN, used 40tabs since prescription in JulyFeels that panic is brought on by severity of pain, cannot tolerate it any longerDenies SI as she cannot do this to her familyPrior to COVID, she was on Cymbalta for depression and anxiety, Neurology switched this to Effexor to help with headaches, feels this is not effective enough for depression so dose was increased, still not adequately treating mood and not improving headachesHad her vision checked, vision fluctuates, sometimes goes without glasses due to migraines, sometimes uses stronger glassesVison in right is being affected more so than the leftCognitive changes, describes them as word finding difficulties, cannot do math without calculator anymore, cannot keep checkbooks to balance at home and work, prior to COVID she was much more fluid in her speechCognitive changes seem to be worse when she is fatiguedFeeling disoriented at times as well, describes this as feeling light headed, sometimes dizzy, unbalanced, gait is offFeeling disoriented/light headed happens out of nowhere, when she tilts her head back or is at the salon and when she stands up, or when she hugs her and then he steps away, also gets light headed when things are moving in her environment, has to close her eyesDue to current headaches cannot undergo vestibular rehab at this timeHad several CT scans MRI/MRV, spinal tap and looking for leaks in her spinal columnMedications that have been tried and are not effective: prednisone, propranolol, toradol, Phenergan, Adjovy, verapamil, topiramate, indomethacin, emgality, ubrelvy, Ativan, reglanUsed to exercise with Dez, yoga, bety chi, pilates, HIT but has not been able to do this since COVID, Gained weight, cannot fit clothes anymore, would like to restart exercises with a marine mammal trainer who specializes in helping patients with BOX SEALING MACHINE FEEDER dysfunctionHas to lay on her left, cannot lay on her right side due to headacheOverall has been suffering from body aches since COVID, unsure if r/t more sedentary lifeNausea occurs when she is feeling light headedConstipation eased up since not taking iron supplements anymoreWas on iron supplements due to hemorrhoid bleedingBack on omeprazole due to inflammation in stomach and related coughing and acid reflux, follows with PCP on thatTinnitus is not new, has dissipatedDidn t lose taste or smellNo respiratory problemsOccasional palpitations or heart racing, not correlated with feeling light headedHeart racing happens 10 times in a month, sitting down and all of a sudden feels her heart racing, at times with activity as wellAlso notices that when she is activeRelevant Hx:-05/2021 ED for headache and panic attack-07/2021 Neurology at [facility] for headaches suspects cervical paraspinal mm spasms as cause of right-sided occipital neuralgia that seems to be triggering recurrence of migrainous headaches with autonomic features, started gabapentin, future options include CHRISTELLE block or cervical facet block through pain managementImaging:-03/2021 CXR clear-05/2021 MRI/MRV brain shows chronic age-related neurodegenerative changes, no acute findings-06/2021 CT C-spine shows mild vertebral malalighnment, disc space narrowing and degenerative changes, anterior epidural defects r/t posterior disc bulging in the lower thoracic and lumbar spineBlood work:-06/2021 spinal tap-08/2021 ferritin 50, iron studies, CBC/D with Hct 42.8%, TPO, thyroglobulin AntbExercise: 0Diet:Weight pre/post-COVID: 150/160Substance use: deniesSocial: marriedFamily Hx: DM, CAD, rectal CA, HTN, depressionSurgical Hx: hysterectomy 2001, squamous cell carcinoma 2020 [facility] Work Phone: Chief complaint Narrative - Reported HeadacheNeurologic Evaluation.An interactive audio and video telecommunication system which permits real time communications between the patient (at the originating site) and provider (at the distant site) was utilized to provide this telehealth service.Verbal consent was requested and obtained from FLAQUITA ROBERTSON on this date, 10/15/2021 10:30 AM , for a telehealth visit. [id number] [address] Work Phone: Chief complaint Narrative - Reported 1 vpcyThe patient was cleared by a COVID-19 screening questionnaire and temperature scan, which showed temperature at or below 99.5F [facility] Work Phone: Chief complaint Narrative - Reported MigraineNeurologic Evaluation.An interactive audio and video telecommunication system which permits real time communications between the patient (at the originating site) and provider (at the distant site) was utilized to provide this telehealth service.Verbal consent was requested and obtained from FLAQUITA ROBERTSON on this date, 06/03/2022 09:30 AM , for a telehealth visit. PM-Xvhubqtuw[facility]vqf[facility] Work Phone: Chief complaint Narrative - Reported 2 vpcyThe patient was cleared by a COVID-19 screening questionnaire and temperature scan, which showed temperature at or below 99.5F [facility] Work Phone: Chief complaint Narrative - Reported Visit 3 MedicareThe patient was cleared by a COVID-19 screening questionnaire upon entry to the suite.Please note: Voice to text software was used when completing this note. While the note was proofread, portions may include grammatical errors. Please contact me with any questions/concerns as it relates to these types of errors. [employer] Work Phone: Evaluation note Diagnosis Occipital neuralgia of right side- Primary Cervical paraspinal muscle spasm Spasm of muscle Migraine without aura and without status migrainosus, not intractable Migraine without aura, without mention of intractable migraine without mention of status migrainosus documented in this encounter [facility] Diagnosis Migraine without aura and without status migrainosus, not intractable- Primary Migraine without aura, without mention of intractable migraine without mention of status migrainosus Cervical paraspinal muscle spasm Spasm of muscle Occipital neuralgia of right side documented in this encounter [facility] noteNo assessment information availableOhio[facility] Work Phone: Evaluation note* Diagnosis MYRIAM (obstructive sleep apnea)- Primary Obstructive sleep apnea (adult) (pediatric) documented in this encounter [facility] Work Phone: History of Present illness Narrative* cc: migraine * Pt came in today seeking treatment for her chronic migraine as well as lingering COVID-19 symptoms;she was referred by Flower Nguyễn CNP, from the COVID recovery clinic; please refer to 's notes for more extensive details * Patient was diagnosed with COVID 03/16; amongst her lingering symptoms, her main complaint is migraine; patient stated that the pain level varies in intensity throughout the day, though it is generally worse at the end of the day; she stated that she is sensitive to light and noise, and migraine epi sodes generally cause nausea, vomiting, lightheadedness, and disorientation; the pain is primarily on her right side; she rates her pain today as 4/10; patient reports having tried Emgality, Ajovy, and Ubrelvy * She has been seen by a headache specialist at [facility], who diagnosed her with occipital neuralgia; she stated that she did 5 weeks of PT, and then plateaued ; the PT also attempted dry needling , whichshe found ineffective; she stated that she will be getting a second opinion with neurology [place]; patient also visited a chiropractor in [place] who is a cervical specialist ; she was told that her neck was off by 3 degrees but after her adjustment she is now aligned * Patient also complains of ongoing sleep issues, coughing diagnosed as reflux, mood swings, and fatigue * and noted that she is getting a second opinion with neurology next week [facility] Work Phone: History of Present illness Narrative* 66 year F with pmhx including depression, migraines, vertigo, GERD, seasonal allergies, s/p COVID. * Patient had a sleep study due to migraines and snoring. * Patient is on Lunesta, it helps her fall asleep faster and stay asleep. * She tried Ambien it helped her fall asleep faster but not stay asleep thus it was stopped. * Tried otc meds but they did not help. * Weekdays/Work/School Days: usual bed time: 11pm, usual wake time: 8am and falls asleep at about: 11:30pm . * Weekends/Off Work/Vacation Days: same as above schedule. 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 * Naps:. 2x per week, around afternoon, 1-2hrs. Naps are refreshing. * SLEEP DURATION: 8hrs. * SLEEP INITIATION: Takes 30min to fall asleep. but varies. * SLEEP MAINTENANCE: 1-5x per night; variable lengths. * Problems staying asleep associated with nocturia and unknown. * BREATHING DURING SLEEP: Snoring during sleep. No witnessed apneas. No gasping/choking for air. Nasal congestion during sleep. on azelastine . No nocturnal gastroesophageal reflux. No nocturnal cough. * Sleep Positioning: side. * MORNING SYMPTOMS: Morning headaches. No morning dry mouth. No morning sore throat. Unrefreshing sleep. Patient denies stimulant use. * DAYTIME: Daytime sleepiness. sometimes . Fatigue. sometimes . No drowsy driving. No history of car accidents due to drowsy driving. * CAFFEINE USAGE: rarely. * HYPERSOMNIA: No sleep paralysis. No cataplexy. No sleep related hallucinations. * LEGS AT NIGHT: No symptoms of restless legs syndrome (RLS). * MOVEMENTS IN SLEEP: No bruxism (teeth grinding). * PARASOMNIA: No sleeptalking. No sleepwalking. Does not act out of dream. No nightmares. -Pulmonary Medicine-[address] Work Phone: History of Present illness Narrative* Right ear posterior canal BPPV with testing today, possible horizontal canal, as well. * No dizziness with any change of position following two trials of Adelaide's maneuver. * Patient would benefit from P.T. to address impairments in order to improve vestibular function, flexibility, posture, and body mechanics, to decrease headache symptoms and increase overall function. * Interdisciplinary Team Communication: Physical Therapy and MD . * Clinical Presentation: Stable and/or uncomplicated characteristics. * Level of Complexity: low * Problem List: activity limitations, decreased functional level, decreased knowledge of HEP, dizziness/vertigo, flexibility, pain, posture, range of motion/joint mobility, sensory and strength. [facility] Work Phone: History of Present illness Narrative* cc: migraine * Patient stated that her head pain is currently low , rating it 3/10 * She noted that her vertigo is not so good ; she saw vestibular PT, noting that it went fine ; thePT found issues on her right side; she will be seeing PT 1 time per week for 6 weeks * She also noted that her GI symptoms have improved since her last visit * Initial intake (10/08/2021) * Pt came in today seeking treatment for her chronic migraine as well as lingering COVID-19 symptoms;she was referred by Flower Nguyễn CNP, from the COVID recovery clinic; please refer to 's notes for more extensive details * Patient was diagnosed with COVID 03/16; amongst her lingering symptoms, her main complaint is migraine; patient stated that the pain level varies in intensity throughout the day, though it is generally worse at the end of the day; she stated that she is sensitive to light and noise, and migraine epi sodes generally cause nausea, vomiting, lightheadedness, and disorientation; the pain is primarily on her right side; she rates her pain today as 4/10; patient reports having tried Emgality, Ajovy, and Ubrelvy * She has been seen by a headache specialist at [facility], who diagnosed her with occipital neuralgia; she stated that she did 5 weeks of PT, and then plateaued ; the PT also attempted dry needling , whichshe found ineffective; she stated that she will be getting a second opinion with neurology next [place]; patient also visited a chiropractor in [place] who is a cervical specialist ; she was told that her neck was off by 3 degrees but after her adjustment she is now aligned * Patient also complains of ongoing sleep issues, coughing diagnosed as reflux, mood swings, and fatigue * and noted that she is getting a second opinion with neurology next week [employer] [facility] Work Phone: History of Present illness Narrative* cc: migraine * Patient stated that her head pain is currently 3/10, and is experiencing some mild vertigo * She noted that her GI issues may have been caused by Qulipta; she has been taking it for approximately 4 months, and has not taken it for 1 week and is noticing a difference * Patient leaves tomorrow on vacation for 1 week in [place] * Initial intake (10/08/2021) * Pt came in today seeking treatment for her chronic migraine as well as lingering COVID-19 symptoms;she was referred by Flower Nguyễn CNP, from the COVID recovery clinic; please refer to 's notes for more extensive details * Patient was diagnosed with COVID 03/16; amongst her lingering symptoms, her main complaint is migraine; patient stated that the pain level varies in intensity throughout the day, though it is generally worse at the end of the day; she stated that she is sensitive to light and noise, and migraine epi sodes generally cause nausea, vomiting, lightheadedness, and disorientation; the pain is primarily on her right side; she rates her pain today as 4/10; patient reports having tried Emgality, Ajovy, and Ubrelvy * She has been seen by a headache specialist at [facility], who diagnosed her with occipital neuralgia; she stated that she did 5 weeks of PT, and then plateaued ; the PT also attempted dry needling , whichshe found ineffective; she stated that she will be getting a second opinion with neurology next [place]; patient also visited a chiropractor in [place] who is a cervical specialist ; she was told that her neck was off by 3 degrees but after her adjustment she is now aligned * Patient also complains of ongoing sleep issues, coughing diagnosed as reflux, mood swings, and fatigue * and noted that she is getting a second opinion with neurology next week [facility] Work Phone: History of Present illness Narrative* No dizziness with any change of position with second Adelaide's maneuver. * O/A FSL, C1 thru C4 FRSR. all corrected with METs * decreased tone right UT, Levator, SCM, Suboccipitals, Scalenes after manual therapy with improved cervical AROM. * Patient would benefit from P.T. to continue to address impairments in order to improve vestibular function,strength, flexibility, posture, and body mechanics, and to decrease symptoms and increase overall function. * Response to treatment: decreased pain, improved joint mobility/ROM, improved posture and improved knowledge and understanding of condition. [facility] Work Phone: history of Present illness Narrative* No dizziness with any change of position today. * C1 thru C4 FRSR. all corrected with METs * decreased tone right UT, Levator, SCM, Suboccipitals, Scalenes after manual therapy with improved cervical AROM. * Patient would benefit from P.T. to continue to address impairments in order to improve vestibular function,strength, flexibility, posture, and body mechanics, and to decrease symptoms and increase overall function. * Response to treatment: decreased pain, improved joint mobility/ROM, improved posture and improved knowledge and understanding of condition. [facility] Work Phone: history of Present illness Narrative* No dizziness with any change of position after second Adelaide's trial.. * Patient would benefit from P.T. to continue to address impairments in order to improve vestibular function,strength, flexibility, posture, and body mechanics, and to decrease symptoms and increase overall function. * Response to treatment: decreased pain, improved joint mobility/ROM, improved posture and improved knowledge and understanding of condition. * Patient was able to complete today's treatment with some difficulty. [facility] Work Phone: history of Present illness Narrative* No dizziness with any change of position after second Adelaide's trial.. * Patient would benefit from P.T. to continue to address impairments in order to improve vestibular function,strength, flexibility, posture, and body mechanics, and to decrease symptoms and increase overall function. * Response to treatment: decreased pain, improved joint mobility/ROM, improved posture and improved knowledge and understanding of condition. * Patient was able to complete today's treatment with some difficulty. [facility] Work Phone: history of Present illness Narrative* No dizziness with any change of position today. * Patient has met most goals and is independent with their home program progression. * They are being discharged to their [facility]. * Response to treatment: decreased pain, improved joint mobility/ROM, improved posture and improved knowledge and understanding of condition. * Patient was able to complete today's treatment with some difficulty. [facility] Work Phone: history of Present illness Narrative* 66 year F with pmhx including depression, migraines, vertigo, GERD, seasonal allergies, s/p COVID. * Patient had a sleep study due to migraines and snoring. * Patient is on Lunesta, it helps her fall asleep faster and stay asleep. * She tried Ambien it helped her fall asleep faster but not stay asleep thus it was stopped. * Tried otc meds but they did not help. * Today,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 Comments:mother with history of ECT tx; Status:Active Family history of congestive heart failure: Father(V17.49, Z82.49) Status:Active : Father Status:Active Unknown Family Member Name Dates Details Family history of depression : Mother, Sister(V17.0, Z81.8) Comments:mother with history of ECT tx; Status:Active Family history of congestive heart failure: Father(V17.49, Z82.49) Status:Active : Father Status:Active Unknown Family Member Name Dates Details Family history of depression : Mother, Sister(V17.0, Z81.8) Comments:mother with history of ECT tx; Status:Active Family history of congestive heart failure: Father(V17.49, Z82.49) Status:Active : Father Status:Active Unknown Family Member Name Dates Details Family history of depression : Mother, Sister(V17.0, Z81.8) Comments:mother with history of ECT tx; Status:Active Family history of congestive heart failure: Father(V17.49, Z82.49) Status:Active : Father Status:Active Unknown Family Member Name Dates Details Family history of depression : Mother, Sister(V17.0, Z81.8) Comments:mother with history of ECT tx; Status:Active Family history of congestive heart failure: Father(V17.49, Z82.49) Status:Active : Father Status:Active Unknown Family Member Name Dates Details Family history of depression : Mother, Sister(V17.0, Z81.8) Comments:mother with history of ECT tx; Status:Active Family history of congestive heart failure: Father(V17.49, Z82.49) Status:Active : Father Status:Active Unknown Family Member Name Dates Details Family history of depression : Mother, Sister(V17.0, Z81.8) Comments:mother with history of ECT tx; Status:Active Family history of congestive heart failure: Father(V17.49, Z82.49) Status:Active : Father Status:Active Unknown Family Member Name Dates Details Family history of depression : Mother, Sister(V17.0, Z81.8) Comments:mother with history of ECT tx; Status:Active Family history of congestive heart failure: Father(V17.49, Z82.49) Status:Active : Father Status:Active Unknown Family Member Name Dates Details Family history of depression : Mother, Sister(V17.0, Z81.8) Comments:mother with history of ECT tx; Status:Active Family history of congestive heart failure: Father(V17.49, Z82.49) Status:Active : Father Status:Active Unknown Family Member Name Dates Details Family history of depression : Mother, Sister(V17.0, Z81.8) Comments:mother with history of ECT tx; Status:Active Family history of congestive heart failure: Father(V17.49, Z82.49) Status:Active : Father Status:Active Family history of malignant neoplasm of colon: Father(V16.0, Z80.0) Status:Active Type 2 diabetes, diet contro lled: Father Status:Active Unknown Family Member Name Dates Details Family history of depression : Mother, Sister(V17.0, Z81.8) Comments:mother with history of ECT tx; Status:Active Family history of congestive heart failure: Father(V17.49, Z82.49) Status:Active : Father Status:Active Family history of malignant neoplasm of colon: Father(V16.0, Z80.0) Status:Active Type 2 diabetes, diet contro lled: Father Status:Active Unknown Family Member Name Dates Details Family history of depression : Mother, Sister(V17.0, Z81.8) Comments:mother with history of ECT tx; Status:Active Family history of congestive heart failure: Father(V17.49, Z82.49) Status:Active : Father Status:Active Family history of malignant neoplasm of colon: Father(V16.0, Z80.0) Status:Active Type 2 diabetes, diet contro lled: Father Status:Active Unknown Family Member Name Dates Details Family history of depression : Mother, Sister(V17.0, Z81.8) Comments:mother with history of ECT tx; Status:Active Family history of congestive heart failure: Father(V17.49, Z82.49) Status:Active : Father Status:Active Family history of malignant neoplasm of colon: Father(V16.0, Z80.0) Status:Active Type 2 diabetes, diet contro lled: Father Status:Active Unknown Family Member Name Dates Details Family history of depression : Mother, Sister(V17.0, Z81.8) Comments:mother with history of ECT tx; Status:Active Family history of congestive heart failure: Father(V17.49, Z82.49) Status:Active : Father Status:Active Family history of malignant neoplasm of colon: Father(V16.0, Z80.0) Status:Active Type 2 diabetes, diet contro lled: Father Status:Active Unknown Family Member Name Dates Details Family history of depression : Mother, Sister(V17.0, Z81.8) Comments:mother with history of ECT tx; Status:Active Family history of congestive heart failure: Father(V17.49, Z82.49) Status:Active : Father Status:Active Family history of malignant neoplasm of colon: Father(V16.0, Z80.0) Status:Active Type 2 diabetes, diet contro lled: Father Status:Active Unknown Family Member Name Dates Details Family history of depression : Mother, Sister(V17.0, Z81.8) Comments:mother with history of ECT tx; Status:Active Family history of congestive heart failure: Father(V17.49, Z82.49) Status:Active : Father Status:Active Family history of malignant neoplasm of colon: Father(V16.0, Z80.0) Status:Active Type 2 diabetes, diet contro lled: Father Status:Active Unknown Family Member Name Dates Details Family history of depression : Mother, Sister(V17.0, Z81.8) Comments:mother with history of ECT tx; Status:Active Family history of congestive heart failure: Father(V17.49, Z82.49) Status:Active : Father Status:Active Family history of malignant neoplasm of colon: Father(V16.0, Z80.0) Status:Active Type 2 diabetes, diet contro lled: Father Status:Active Unknown Family Member Name Dates Details Family history of depression : Mother, Sister(V17.0, Z81.8) Comments:mother with history of ECT tx; Status:Active Family history of congestive heart failure: Father(V17.49, Z82.49) Status:Active : Father Status:Active Family history of malignant neoplasm of colon: Father(V16.0, Z80.0) Status:Active Type 2 diabetes, diet contro lled: Father Status:Active Unknown Family Member Name Dates Details Family history of depression : Mother, Sister(V17.0, Z81.8) Comments:mother with history of ECT tx; Status:Active Family history of congestive heart failure: Father(V17.49, Z82.49) Status:Active : Father Status:Active Family history of malignant neoplasm of colon: Father(V16.0, Z80.0) Status:Active Type 2 diabetes, diet contro lled: Father Status:Active Unknown Family Member Name Dates Details Family history of depression : Mother, Sister(V17.0, Z81.8) Comments:mother with history of ECT tx; Status:Active Family history of congestive heart failure: Father(V17.49, Z82.49) Status:Active : Father Status:Active Family history of malignant neoplasm of colon: Father(V16.0, Z80.0) Status:Active Type 2 diabetes, diet contro lled: Father Status:Active Unknown Family Member Name Dates Details Family history of depression : Mother, Sister(V17.0, Z81.8) Comments:mother with history of ECT tx; Status:Active Family history of congestive heart failure: Father(V17.49, Z82.49) Status:Active : Father Status:Active Family history of malignant neoplasm of colon: Father(V16.0, Z80.0) Status:Active Type 2 diabetes, diet contro lled: Father Status:Active Unknown Family Member Name Dates Details Family history of depression : Mother, Sister(V17.0, Z81.8) Comments:mother with history of ECT tx; Status:Active Family history of congestive heart failure: Father(V17.49, Z82.49) Status:Active : Father Status:Active Family history of malignant neoplasm of colon: Father(V16.0, Z80.0) Status:Active Type 2 diabetes, diet contro lled: Father Status:Active Unknown Family Member Name Dates Details Family history of depression : Mother, Sister(V17.0, Z81.8) Comments:mother with history of ECT tx; Status:Active Family history of congestive heart failure: Father(V17.49, Z82.49) Status:Active : Father Status:Active Family history of malignant neoplasm of colon: Father(V16.0, Z80.0) Status:Active Type 2 diabetes, diet contro lled: Father Status:Active Unknown Family Member Name Dates Details Family history of depression : Mother, Sister(V17.0, Z81.8) Comments:mother with history of ECT tx; Status:Active Family history of congestive heart failure: Father(V17.49, Z82.49) Status:Active : Father Status:Active Family history of malignant neoplasm of colon: Father(V16.0, Z80.0) Status:Active Type 2 diabetes, diet contro lled: Father Status:Active Unknown Family Member Name Dates Details Family history of depression : Mother, Sister(V17.0, Z81.8) Comments:mother with history of ECT tx; Status:Active Family history of congestive heart failure: Father(V17.49, Z82.49) Status:Active : Father Status:Active Family history of malignant neoplasm of colon: Father(V16.0, Z80.0) Status:Active Type 2 diabetes, diet contro lled: Father Status:Active Unknown Family Member Name Dates Details Family history of depression : Mother, Sister(V17.0, Z81.8) Comments:mother with history of ECT tx; Status:Active Family history of congestive heart failure: Father(V17.49, Z82.49) Status:Active : Father Status:Active Family history of malignant neoplasm of colon: Father(V16.0, Z80.0) Status:Active Type 2 diabetes, diet contro lled: Father Status:Active Unknown Family Member Name Dates Details Family history of depression : Mother, Sister(V17.0, Z81.8) Comments:mother with history of ECT tx; Status:Active Family history of congestive heart failure: Father(V17.49, Z82.49) Status:Active : Father Status:Active Family history of malignant neoplasm of colon: Father(V16.0, Z80.0) Status:Active Type 2 diabetes, diet contro lled: Father Status:Active Advance Directives No Advanced Directives Records Found Advance Directive Response Recorded Date/ Time Advance Directives No June 02, 2017 2:55pm Chief Complaint 02/24/21 brain fog, headache different in severity, swelling in face with headaches on right side, light and sound sensitivity, vomiting, muscle/joint pain with exercise, swollen glands, fatigue, slurring and slow speech when experiencing pain, extreme cognitive issues,02/24/21 brain fog, headache different in severity, swelling in face with headaches on right side, light and sound sensitivity, vomiting, muscle/joint pain with exercise, swollen glands, fatigue, slurring and slow speech when experiencing pain, extreme cognitive issues,02/24/21 brain fog, headache different in severity, swelling in face with headaches on right side, light and sound sensitivity, vomiting, muscle/joint pain with exercise, swollen glands, fatigue, slurring and slow speech when experiencing pain, extreme cognitive issues,cc: /01/21 brain fog, headache different in severity, swelling in face with headaches on right side, l ight and sound sensitivity, vomiting, muscle/joint pain with exercise, swollen glands, fatigue, slurring and slow speech when experiencing pain, extreme cognitive issues,02/24/21 brain fog, headache different in severity, swelling in face with headaches on right side, light and sound sensitivity, vomiting, muscle/joint pain with exercise, swollen glands, fatigue, slurring and slow speech when experiencing pain, extreme cognitive issues,cc: migrainecc: migraine FUV: Symptoms are improving , pain has lessened,cc: migrainereview sleep study cc: migrainecc: migrainecc: migrainesleep apnea66 y/o female presents for follow upcc: migraine Chief Complaint and Reason for Visit Chief Complaint r51.9 Additional Source Comments Source Comments (unrecognize d section and content) In the event this informatio n is protected by the Federal Confidentiality of Alcohol and Drug Abuse Patient Records regulations: The Federal rules restrict any use of the information to criminally investigate or prosecute any alcohol or drug abuse patient.[facility] the event this information is protected by the Federal Confidentiality of Alcohol and Drug Abuse Patient Records regulations: The Federal rules restrict any use of the information to criminally investigate or prosecute any alcohol or drug abuse patient.[facility] the event this information is protected by the Federal Confidentiality of Alcohol and Drug Abuse Patient Records regulations: The Federal rules restrict any use of the information to criminally investigate or prosecute any alcohol or drug abuse patient.[facility] the event this information is protected by the Federal Confidentiality of Alcohol and Drug Abuse Patient Records regulations: The Federal rules restrict any use of the information to criminally investigate or prosecute any alcohol or drug abuse patient.[facility] Reason for Visit (unrecogniz ed section and content) Reason Comments Received Outside Medical Records O[facility] NI referral to Headache & Facial Pain Reason Comments Received Outside Medical Records Imaging reports Reason Comments New Patient Reason Comments Follow-up Everything is good w ith cpap machine supplies are good will order supplies soon Care Teams (unrecognized sec tion and content) Tool Maker Relationship Specialty Start Date End Date Benito Diaz [address] [place] [address] PCP - General 08/04/00 [address] [place], [place] [id number] [place] Referring Team Neurology 07/15/21 Tool Maker Relationship Specialty Start Date End Date Benito Diaz [address] [place] [address] PCP - General 08/04/00 Wilmer Carrillo [address] [place] [address] NI Referring Team Neurology 07/15/21 Tool Maker Relationship Specialty Start Date End Date Benito Diaz [address] [place] [address] PCP - General 08/04/00 Wilmer Carrillo [address] [place], [place] [id number] NI Referring Team Neurology 07/15/21 Tool Maker Relationship Specialty Start Date End Date Benito Diaz [address] [place] [address] PCP - General 08/04/00 Wilmer Carrillo [address] [place], [place] [id number] NI Referring Team Neurology 07/15/21 Team Status: Active Member Role Status Dates Inocencio Rosado MD Primary Care Provider Active Team Status: Inactive Member Role Status Dates Inocencio Rosado MD Primary Care Provider Active Ashu Goff , OD Attending Provider Active Tool Maker Relationship Specialty Start Date End Date Inocencio Rosado MD [address] [place] [address] [place] [address] PCP - General 04/26/99 INFORMATION SOURCE (unrecogn ized section and content) DATE CREATED AUTHOR 08/27/2021 [facility] DATE CREATED AUTHOR AUTHOR'S ORGANIZ ATION 04/15/2022 [facility] DATE CREATED AUTHOR AUTHOR'S ORGANIZ ATION 05/06/2022 [facility] DATE CREATED AUTHOR AUTHOR'S ORGANIZ ATION 10/28/2022 [facility] DATE CREATED AUTHOR AUTHOR'S ORGANIZ ATION 11/13/2022 [employer] DATE CREATED AUTHOR AUTHOR'S ORGANIZ ATION 04/07/2023 [facility] DATE CREATED AUTHOR AUTHOR'S ORGANIZ ATION 08/26/2023 [facility] DATE CREATED AUTHOR AUTHOR'S ORGANIZ ATION 12/09/2023 [facility] Goals (unrecognized section and content) Goals may be documented in a n alternate section FOR RECORDS PERTAINING TO PATIENTS WHO ARE OR HAVE BEEN ENROLLED IN A CHEMICAL DEPENDENCY/SUBSTANCEABUSE PROGRAM, SOME INFORMATION MAY BE OMITTED. This clinical summary was aggregated from multiple sources. Caution should be exercised in using it in the provision of clinical care. This summary normalizes information from multiple sources, and as a consequence, information in this document may materially change the coding, format and clinical context of patient data. In addition, data may be omitted in some cases. CLINICAL DECISIONS SHOULD BE BASED ON THE PRIMARY CLINICAL RECORDS. [employer] provides no warranty or guarantee of the accuracy or completeness of information in this document.
== END 2023-12-15 10:22 | disposition home or self-care (01) ==
LOC: EC 10:22
PROVIDERS: PCP Family Medicine; Visit Provider Podiatrist Foot & Ankle Surgery
DX: M79.672 Pain in left foot (principal); S92.352D Displaced fracture of fifth metatarsal bone, left foot, subsequent encounter for fracture with routine healing
CPT/HCPCS: 73630

== ENCOUNTER 2024-01-25 10:31 | Outpatient (OUT) | payer MEDICARE, OTHER, SELFPAY ==
--- NOTE | 2024-01-25 | XR_ITS ---
The [address] [address] Patient Name: VIKTORIA HIDALGO MRN: [id number] date: 1955 Sex: F Assigned Patient Location: Current Patient Location: Accession/Order Number: [id number] Exam Date: 01/25/2024 10:32 Report Date: 01/26/2024 07:26 At the request of: JEEVAN RASCON Procedure: XR foot LT min 3V PROCEDURE: XR foot LT min 3V COMPARISON: 11/24/2023 HISTORY: LEFT FOOT PAIN FINDINGS: BONES:Stable displaced oblique fracture through the distal diaphysis of the fifth metatarsal with distraction up to 2.7 mm. Some minimal bone formation proximally with partial bony bridging. Degenerative changes most significant first metatarsal-phalangeal joint. Moderate enthesopathic spurring plantar calcaneus SOFT TISSUES:Negative. No visible soft tissue swelling. EFFUSION:None visible. OTHER: Negative. XR/XR foot LT min 3V IMPRESSION: Minimal interval healing of a fifth metatarsal fracture Electronically authenticated by: DARREN LUNA Date: 01/26/2024 07:26
--- OUTSIDE RECORDS SUMMARY | 2024-01-25 10:54 | XMS_ITS | CCD ---
Author Organization [facility] Care Team Providers Care Coding Tech Name Role Phone Svetlanadiogenesherber Benito S Primary [...] Referring Unavailable Ashlee, Dr. Inocencio Hairston Primary [facility] Unava ilable Torer, Ms. Crenshaw Attending Unavailable Toreliseo, Ms. Crenshaw Referring Unavailable Ashlee, Dr. Inocencio Hairston [facility] Care Unava ilable Torer, Ms. Crenshaw Referring Unavailable Torer, MsMaximiliano Crenshaw Attending Unavailable Ashlee, Dr. Inocencio Hairston Primary Care Unava ilable Torer, MsMaximiliano Crenshaw Referring Unavailable Torer, MsMaximiliano Crenshaw Attending Unavailable Ashlee, Dr. Inocencio Hairston [facility] Care Unava ilable Torer, Ms. Crenshaw Attending Unavailable Ashlee, Dr. Inocencio Hairston Primary [facility] Unava ilable Torer, MsMaximiliano Crenshaw Referring Unavailable Torer, MsMaximiliano Crenshaw Attending Unavailable Torer, MsMaximiliano Crenshaw Referring Unavailable Ashlee, Dr. Inocencio Hairston [facility] Unava ilable Torer, Ms. Crenshaw Attending Unavailable Torer, Ms. Crenshaw Referring Unavailable Cadigan, Dr. Inocencio Hairston [facility] Unava ilable Unavailable Unavailable Calderon, Dr. Aundrea Guadalupe Attending Vanessa vailable Calderon, Dr. Aundrea Guadalupe Referring Vanessa vailable Cadigan, Dr. Inocencio Hairston [facility] Unava ilable TORELISEO, TAMMI CAMPA Attending Unavailable TORELISEO, TAMMI CAMPA Referring Unavailable Cadigan, Dr. Inocencio Hairston [facility] Unava ilable Zoie Tejeda Attending Unavailable Zoie Tejeda Referring Unavailable Cadigan, Dr. Inocencio Hairston [facility] Unava ilable [place], Ms. Griselda Attending Unavailable Cassius, Ms. Griselda Referring Unavailable Cadigan, Dr. Inocencio Hairston [facility] Unava ilable Yakelin Acosta Attending Unavailable Cassius, Ms. Griselda Referring Unavailable Cadigan, Dr. Inocencio Hairston [facility] Monique Unava ilable Cassius, Ms. Griselda Attending Unavailable Cassius, Ms. Griselda Referring Unavailable Cadigan, Dr. Inocencio Hairston [facility] Monique Unava ilable Cassius, Ms. Griselda Attending Unavailable [place], Ms. Griselda Referring Unavailable Cadigan, Dr. Inocencio Hairston [facility] Unava ilable [place], Ms. Griselda Attending Unavailable Cassius, Ms. Griselda Referring Unavailable Cadigan, Dr. Inocencio Hairston [facility] Unava ilable Zoie Tejeda Attending Unavailable Zoie Tejeda Referring Unavailable Cadigan, Dr. Inocencio Hairston [facility] Monique Unava ilable Karie, Ms. Cosme Jaeger Attending Unava ilable Zoie Tejeda Referring Unavailable Cadigan, Dr. Inocencio Hairston [facility] Monique Unava ilable Karie, Ms. Cosme Jaeger Attending Unava ilable Zoie Tejeda Referring Unavailable Cadigan, Dr. Inocencio Hairston [facility] Unava ilable [place], Ms. Griselda Attending Unavailable [place], Ms. Griselda Referring Unavailable Cadigan, Dr. Inocencio Hairston [facility] Unava ilable Eve Mccollum Attending Unavailable ProsEve wilkins Referring Unavailable Cadigan, Dr. Inocencio Hairston [facility] Unava ilable Cassius, Ms. Griselda Attending Unavailable [place], Ms. Griselda Referring Unavailable Cadigan, Dr. Inocencio Hairston [facility] Unava ilable Cassius, Ms. Griselda Attending Unavailable Cassius, Ms. Griselda Referring Unavailable Cadigan, Dr. Inocencio Hairston [facility] Unava ilable [place], Ms. Griselda Attending Unavailable [place], Ms. Griselda Referring Unavailable Cadigan, Dr. Inocencio Hairston [facility] Unava ilable Daniel Jimenez Attending Unavailable Cadigan, Dr. Inocencio Hairston Referring Unava ilable Cadigan, Dr. Inocencio Hairston [facility] Unava ilable Daniel Jimenez Attending Unavailable TORER, TAMMI SESAYIANA Referring Unavailable Cadigan, Dr. Inocencio Hairston [facility] Unava ilable [place], Ms. Griselda Attending Unavailable [place], Ms. Griselda Referring Unavailable Cadigan, Dr. Inocencio Hairston [facility] Unava ilable Prosak, Eve Attending Unavailable Prosak, Eve Referring Unavailable Cadigan, Dr. Inocencio Hairston [facility] Unava ilable Cassius, Ms. Griselda Attending Unavailable Cassius, Ms. Griselda Referring Unavailable Cadigan, Dr. Inocencio Hairston [facility] Unava ilable Prosak, Eve Attending Unavailable Prosak, Eve Referring Unavailable Cadigan, Dr. Inocencio Hairston [facility] Unava ilable Prosak, Eve Attending Unavailable Prosak, Eve Referring Unavailable Cadigan, Dr. Inocencio Hairston [facility] Unava ilable BRADESCA, PAC LISSA ELIANA Attending Unavai lable BRADESCA, PAC LISSA ELIANA Referring Unavai lable Cadigan, Dr. Inocencio Hairston [facility] Unava ilable Devon, Dr. Xavier Bianchi Attending Unavail able Trager, Dr. Xavier Bianchi Referring Unavail able Cadigan, Dr. Inocencio Hairston [facility] Unava ilable Trager, Dr. Xavier Bianchi Attending Unavail able Trager, Dr. Xavier Bianchi Referring Unavail able Cadigan, Dr. Inocencio Hairston [facility] Unava ilable BRADESCA, PAC LISSA ELIANA Attending Unavai lable BRADESCA, PAC LISSA ELIANA Referring Unavai lable Cadigan, Dr. Inocencio Hairston [facility] Unava ilable [place], Ms. Griselda Attending Unavailable Cassius, Ms. Griselda Referring Unavailable Cadigan, Dr. Inocencio Hairston [facility] Unava ilable Cassius, Ms. Griselda Attending Unavailable [place], Ms. Griselda Referring Unavailable Cadigan, Dr. Inocencio Hairston Primary Care Unava ilable Cassius, Ms. Griselda Attending Unavailable [place], Ms. Griselda Referring Unavailable Ashlee, Dr. Inocencio Hairston Primary Care Unava ilable [place], Ms. Griselda Attending Unavailable Cassius, Ms. Griselda Referring Unavailable Cadchristiano, Dr. Inocencio Hairston Primary Care Unava ilable [place], Ms. Griselda Attending Unavailable [place], Ms. Griselad Referring Unavailable Ashlee, Dr. Inocencio Hairston Primary Care MD Inocencio Austin Primary Care Provider ORLANDO Goff Attending Provider [phone] Ashu Goff Attending Unavailab Ashu Willis Admitting Unavailab caridad Rosado, Inocencio Gilmore Primary Care Unavailable Inocencio Rosado MD Primary Care Provider HOUSE, NICOLE P Primary Care Unavailable HOUSE, NICOLE P Primary Care Unavailable HOUSE, DO NICOLE Vazquez Attending Unavailable Inocencio Rosado MD Primary Care Unavailable HOUSE, DO NICOLE P Admitting Unavailable Moser, Patricio Silverio Attending Unavailable HOUSE, NICOLE P Primary Care Unavailable Moser, Patricio L Admitting Unavailable HOUSE, NICOLE P Primary Care Unavailable HOUSE, DO NICOLE P Admitting Unavailable HOUSE, DO NICOLE P Attending Unavailable HOUSE, DO NICOLE P Attending Unavailable HOUSE, DO NICOLE P Admitting Unavailable HOUSE, NICOLE P Primary Care Unavailable HOUSE, NICOLE P Primary Care Unavailable Inocencio Rosado MD Primary Care Unavailable Shell, Ashu Admitting Unavailable Ashu Goff Attending Unavailable HOUSE, NICOLE P Primary Care Unavailable HOUSE, DO NICOLE P Attending Unavailable HOUSE, DO NICOLE P Attending Unavailable HOUSE, NICOLE P Primary Care Unavailable Inocencio Rosado MD Attending Unavailable Inocencio Rosado MD Primary Care Unavailable HOUSE, NICOLE P Primary Care Unavailable HOUSE, DO NICOLE George Attending Unavailable Medications Current Medications Medication Drug Class(es) [...] (ASTE MAKSIM) 0.1% nasal spray Use 1 [place] in each nostril as needed. 0 Active 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: Use 1 [place] in each nostril as needed. Calcium (20 sources) Phosphate Binder, Calcium Start: 06-07-2017 take 1 tablet by mouth three times daily [id number]-Zinc-Residential Appliance Repair Technician- Cesar-[place] (Caltrate 600-D Plus Minerals) 600 mg calcium- 800 unit-40 mg Tablet,Chewable Active 1 TAB PO Three times daily June 07, 2017 12:00am Calcium + D TABS Quantity: 0 Refills: 0 Ordered: 16-Oct-2021 DO Active CALCIUM CITRATE-VITAMIN D3 ORAL (1 source) CALCIUM CITRATE-VITAMIN D3 ORAL Take by mouth. 0 Active cetirizine hydrochloride 10 mg oral tablet (20 sources) Histamine-1 Receptor Antagonist Start: 06-07-19 18 take 1 tablet by mouth every twenty-four [...] Start: 09-24-2022 take 2 tablets by mo [facility] every other day, then take 4 tablets [...] Start: 10-15-2021 take 2 tablets by mo [facility] every other day, then take 4 tablets [...] 07, 2017 12:00am July 14, 2021 7:45am Tysrhzi-Zokbhgkcp-Zjo rodriguez D 600-300-400 Oral Liquid (13 sources) Start: 10-06-2021 Calcium-Magnesium- Vitamin D 600-300-400 Oral Liquid Quantity: 0 Refills: 0 Ordered: 06-Oct-2021 DO Start : 06-Oct-2021 Active ciprofloxacin 500 mg oral tablet (1 [...] NIACIN, BULK, MISC (2 sources) NIACIN, BULK, WI SC Qulipta 60 MG Oral Tablet (20 sources) Start: 10-15-2021 take 1 tablet by mouth once daily Qulipta 60 MG Oral Tablet Take one Tablet daily with our without food Quantity: 90 Refills: 3 Ordered: 15-Oct-2021 Theron LOAIZA, Zoie Start : 15-Oct-2021 Active Failed beta-blockers, SSRIs, injectable CGRP's, topiramate, Effexor, gabapentin rimegepant 75 mg disintegrating oral tablet (1 source) Start: 06-03-2022 take 1 tablet by mouth every other day Nurtec 75 MG Oral Tablet Disintegrating Take 75mg PO every other day Quantity: 16 Refills: 5 Ordered: 03-Jun-2022 Theron ZAYAS-TAMMI, Zoie Start : 03-Jun-2022 Active Failed beta-blockers, SSRIs, [...] Test Name Value Interpretation Reference Range Facility Rad - Other Radiology Report on 12-20-2023 Rad - Other Radiology Report [id number] 11-30-2023 Coding Summary HTMLBase 64 JwjjkuygMLm9pBo+PGhlYWQ+PE1F DXKgV26piZPvvD5pN6SZTMhIOdwd ISMJEQqWJxUwwyDcFS7nxXVgFKGj IC8+GS3aENJnWrflkUWqm2X0pJJ9 W84boy0jCZpinVX9VZJrFwXwgqwj p8zwcPj8FNvjUtoyLcIa JYTmmK44ASB2yU82Zi52iWXejXRl j1ysqSj0HtYwTVLuZAO0jXtgYMdh t0NeULHeF78eiOOqi1D9 THSkwSoywAWvGtJhzCH3qC1dPQzs sevgh2crbrdoMcc6cr68qSBcw7F9 nST5X9PgsiW9KMBpmWHt QdymoRMOwK1vtwxna0pknriySoIw PDWxZZv9JKk0LQHsuFxrDnAiJW14 BDG9GRNziuVsX4EbJIWd qTgxEnO5p6M0Sl0VI4PFOqaxY9LY TUFSWTwvdGQ+YV68wm08F2TtKzit Gss0CAEnFYJ3gCH8qQ8z VKVmBCkia5B5nMN5A8HhepQihd5u l1xqEVUtIQtfJ26khEJaj1E2GOTt kYG6DAJmkMpcHkZbfI74 Oyc+BZGriChmd9QnPqdjz0tlx0mi sUe4RvhzRBJonfThfKojYZF8s6Hu Zi8iBXZnyLS8eJD8lR7e ErOoHtD8JJmwD315LmUmlFKaOuzx P79uE2EfyVD+UBBjDpa1GJXqiQlc XE7lX1RrLWZatdtgvWWx qMtgKK2gJZXgrfviSMColT2iTFSf K7o4XhRiOzO3EVskI6ToJCScvmyk Qn13dP6tJlYkOvG3IVbo J9FniyZ7DZBjtRDzRKldBIU3F12u w4M7RMHyKDPzFLP5hRR0cX5gvKrw bjogbGVmdDsgdmVydGlj OXufBMueF243MJLucJnnItMgOIdx ZyBEYXRlOiAgMDgvMDYvMjAyNDwv dGQ+BOZrIWY1dDjrOPZs lFDpKBxqTi9hbWqxcIcaWT6oHKDu ylfhWGYrtJ0zSRMjzNFpwPviCB7p ZBXuhxpon853ItGjLRO3 BZGpkRYfX4KkdO1rNwJdVIDbWJAg I1CfuGEoJVqnZ401QJzjXtR3ONKo itOcB0BbCUJhjYthRgU5 y5M9Oj3Hi2WtpsgmO5ZwaALhBhLq CvkyWZx9L3IrVtvcqHI+RJ93AYJj BR41BGb0UCM1tAomULam TQCcY6AufF4jTlOoUPFuSMWvYjo+ PHRhYmxlIHdpZHRoPScxMDAlJyBz dEntNR9dDv7cSKViSCCv mTmzsIYrFwCzx6xjNSMaRZxhQG9j sSxsY8QiyJS0KORwt9p7Ef71X69i H8QqaBB+PJDzsAE5nTH3 pI6rLeHjYrT5ZNlvI836FuYsxAUl Nytok7sak7ppgAh7ZsM4RWWlbnKk zQfiBOJ8a1UsLr90G65i THjhDAVfRBOuAYInACBbaOueed1h dF3qDo7+OZMlrJS1jFQ5kK6wEtMy IyN5YVioD995IeYqkXHg Kswgz2fwz5bhgJt5AqXdNEFaudJt sYigAVG1a4IuUg35J4CukOwoq4Ux Oci2eg63jNTns3E4vHB4 M4TtGWWkkspddFBlwTlfJI2vBQOr ysrdYOOrdF2nFZGxA8f3ZjHhSuS5 URzkX9CzalW3AANubUDr WZNibBECkQ8hogvsb9kjpbskPrSv MOAaHHy7CLi5OQOpfTwpSmHsJQC5 HhJ5ZQT1yUJhoH2tsQfu qmmwwT1kMdr+OEA5bUKrhPXPRQ5v OjwvdGQ+DZXsCDY7hIzjYBfrTEHg hG7aNGNvP4f7DyRzIbZ4 NQuzN0BsmqJ2ZYKodCUcDUTyyXII zL0ryveya2iocxruOtVhAFFhHEc6 KBj5XMKajHlaEfPvGVE3 OjT8BOT0jAYdvI5kxQvxxanpqW5t Oyc+SdtcmFxaJNV1VKy3D5JbPdt3 NQQjbWdoAK0yuZOdSWcx Gq3amGdynTmdZU3rXSRmsseis651 RgPlw7alLANkaCTqEIzaGYP2D36k g8W1WCGfHPZuJBP1cGH7 vW8ndNvbxzwguAMzpMaemnZrsKmr EOupDOdqJ669LIFmpXgnCtRnGIp3 S3DiTyo6RIWntUfbQY0a lYYfYCihVb4jvDayaRgyTD9pYQOq ypurp367GeJlb0ndVPUhvPJaBZdp WPN1L18uf9G8UAGkCCHg DJL3eLE4wN3rzPakughozBBqvUlk rkJjtAnqKWmwEJevR035UKMnbCuo WjSjwBx4G7IsPkx4VMDa iAckJM9skVWkAQviBj0aeVulxXfy VI1lLYRdwqohi924EgQuy9kgIMVp gBXwBQzxWUF7J92no4O2 XPPaCCReZIQ3kPP8nC3fhXfovqgf yWYjwEaxxbPfxKyuWFkaCYedJ001 IHRvcDsnPlBhdGllbnQg PRthYHx5M9VmSxwpaTN+SG42GGOz YH80oYNloQAkk4pdfWe4EmUsMPAd TMI2fLoaYYlsv4LtTHFq O73pgCFlc8Q9SZGquXpufBEjDkKd zKE7kL8yJSlnarzmh9xothabOdnk q3ihtb42sP47X93xJNpm EWAvANFmQGEjODBusPdwmy7emI2e Ii8+SAFzmLL6aKE6gE0uMXHcOuN7 MRuaO658DbNnzKGwQedn j3tpt9qxeZy7DjI2DLXyqmRrkGng ZEI1e0BqYv26I51aSEagPYJsFIHw VLSeITQcuGyxdv1ssE0k Ii8+YDYzpPS4hZY1sC9mJuSqPnK8 RHrmQ297HfKkgRFoBprqG43gG5Cq dXA+PVBcDbq3FYQdhHkf DG8hvUAgLSokQs2kFIW5SyNkVwMm FGmiV5GtAEWgdpieatmngXE8IIUu RUSpwX25Vz5csNuoVJAg tVOPlA5poyjyy3ujfuotUnYoGWTu VRd3XXo8MTHmtHcrJeSbCLE7DcF0 VTF0gUDlzT3wuAksxnbn iL5tC6RuNDWnlcypRw56vT3pIkWo IlD1DVdjWts+G9CZH9dTCFJQVJnB RUNKRv67I0DcPmx1IFGl mFrwSL3xkWIlHKniGt4qbCkkpEst FC6nNXVsptmcWCDyjI8sZYAzzRDk tPrePS6iPGCvjjjej090 MfVmGDV9EGObsGKlG2FdbE3vAgQm WLOtJOMlD6KrqKQpYBtwW545DEkk PxD9GFYyylIuZ6OqVHRd pNpeGnC1g9Q6Ss4gWM6uEC8yHBF4 BC52SJ84nCZka1V9kKA9J2PqYMCk estdbrbozJB4XLAfPNQt eO11rANbSNskHl0vt1N7h109VGMe IUYqdH38Lo0niEfqGYNblPXLiC4p kyaem1mrnwraCrErTNDi DQw4MHf1DLYwlOxqTsVsSZK7ShY6 JMR5qPSkmG8laJulzbglqW2rUyk+ AideLMTwdiL6Q7NhXya3 PAZwbZbmWI4kaYWnCSwdEl1xkSxm lGduGM6aXWOpkozsLCHlzF9oLJDy wRDtvTvtFD8oHMYcvutg z391CpVjIFW6YTNzrUUzF7VupP7b WuGiGGIcKNTkY8PsgXMwENxoR563 KCigYbK8EOSjihNmU2Tz XAJfoAryWlT6l1W8Iv6NEC9AFZE1 T0LdFcn2LROkaPdkHY8afSEeRFqt Vn5juLrumHypGC8pRDVy cymwAKLekX4hWQPteNBdbRsySY0l FOJeilzbf283PwAcFSG8VFGxhXHw W2OikZ8fQrNpRNRxPYJp F0QnsRChAVguK608LEqiTrL2QYEi unSpP4FiDQPxoNcoIqM2b2P5Hn7R UDwvdGQ+YV63wj32F7Up DynhPiw4ADOuWST6mWP5lZ8xADQm DIlnk4L9eSS6U7AcbyPsah9si7cm UNFqQMqfK21teWTvi6M9 JTHgvDS6QDLhoRfuTqKziY52Bns+ ATOpvZlsq5KwWxcdi3wxq5pwjZx3 IjMwJSIgdmFsaWduPSJ0 n9QcCp34U61nGNzgAPIpSYIyUSBj XXXyzWwicv5uoV9eOt1+PGNvbCB3 iLP9iK8tNiWsUlG1EBdw S828VbRdeFPzXgrzd5bpv4gmdGq5 VuQwKSBewiMhuRzfAUJ5j4YvDf79 C8DfvWqfw6InGog3wy75 zXIts1C8rKB3Y6FqMHMwutycdXGg mTnxCK3oPOHoemldWTNpvM9sOIKp C0z7DmCuAcM1LVxmA9Uc hrY9VEZcqYNeNZCjiQIEhL1ohvhd u0djixcoRpTpXMVoJCt9WRb1NEGd sPkjCiTzGOZ5OcY6SLP4 eJDkbY2igFghjeefhF8jQeh+UGh5 v0vfdZNzIM8fmGF4NY85RF96yMCs a3D5gQG1A8NoLXJcdfoi wggdwNB8OAWwAFHerG87Ve7cfQpe Nh4pTIQtJMK3AXTftBBbK6KawT4z OtOrCITgWMTfW8XdqDAl OGbfR308LDkeYfF9XIPuidIaS2Iy ENAvaWnuSxC7f5J9Sn1SEV44YY66 WV76yGKhq7J5zFC5W2Qm SQHykohmhxiabLV5FXNjXAHkxM57 Sc1xcAsmXd8aXBHsRKU3ZUQcoTNx A1XthG9zZoPaXYNsBVAy G4WlgOQjBEtfY454CYupFkY8NYKb ueGiR7UaCBKuzDjcZzI5s2Z8Cg9Z Rx27UX04TO10jZVsl6E7 dTV9A0IwRRLeajqrcybnlSR9FJBp QKResZ75Jm3lhBbyWs4rCHHlDFO4 GSZniKRhD0ZgqZ8jRrDp HXUfUUUrC6UelNWwUPurV765GMak DhB9MMZtvhGuV2SuTPCteFvqDpP5 c6K3Gr0TTUofzai0O3Tl PjwvdHI+UF76YLWlPL78uBSclEQw i0ctrDz3DgWsUUKcIJZ9eWumKYlx u5SiFCMvO43cyJVfo8S5 IGN (more content not included)... [facility] Rad - Other Radiology Report on 11-25-2023 Rad - Other Radiology Report [id number] [facility] C Urineon 11-12-2023 C Urine Urine Culture [...] <=4 Verified Tri/Sulf R >2/38 Verified Normal [facility] 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: Performed By: #### 6 [id number] ####[facility] (DEFAULT)[address] [place] [id number] ED Clinical Summaryon 2023 ED Clinical Summary [facility] ? Urgent Care [address] [place] [address] Clinical Summary PERSON INFORMATION Name: FLAQUITA ROBERTSON Age: 68 Years Sex: FEMALE : 1955 MRN: Acct#: Visit Reason: UC - Dysuria; URINARY FREQUENCY/PAIN, FLANK/PELVIC PAIN Arrival: 11/10/2023 19:27:17 Discharge: 11/10/2023 20:35:00 LOS: 000 01:08 Check In: 11/10/2023 19:27:17 Checkout: 11/10/2023 20:35:00 Address: [address] [place] [address] PCP: NICOLE PETERS DO PROVIDER INFORMATION Provider Role Assigned Unassigned Ashlee RN, Lisbeth ED Nurse 11/10/2023 19:29:13 Patricio Moser-C ED PA 11/10/2023 19:36:31 VITALS INFORMATION Vital Sign Triage Latest Temperature Tympanic Temperature Temporal Artery Pulse Rate O2 Sat 98 % 98 % Respiratory Rate Blood Pressure /85 mmHg /85 mmHg MEDICAL INFORMATION Medications Given: Allergy Information: No known allergies PHYSICIAN DOCUMENTATION DISCHARGE INFORMATION: Discharge Disposition: Home Discharge Location: Home PATIENT EDUCATION INFORMATION Instructions: Urinary Tract Infection, Adult, Yhed-zu-Cuer Follow-Up: With: Address: When: NICOLE PETERS [address] [place] [address] [phone] Business (1) Within 3 to 5 days DIAGNOSIS: UTI (urinary tract infection) Patient Understands: Yes - Patient/family/caregiver verbalizes understanding of instructions given Comment: Normal [facility] ED Patient Summaryon 024 ED Patient Summary [facility] ? Urgent Care [address] [place] [address] PATIENT DISCHARGE INSTRUCTIONS Patient Information Name: FLAQUITA ROBERTSON Age: 68 Years Date of : 1955 Reason For Visit: UC - Dysuria; URINARY FREQUENCY/PAIN, FLANK/PELVIC PAIN Arrival Time: 11/10/2023 19:27:17 Primary Care Physician: NICOLE PETERS DO Attending Physician: Patricio Moser PA-C Comment: Patient Education With: Address: When: NICOLE PETERS [address] [place] [phone] Business (1) Within 3 to 5 days [...] these instructions at home: Medicines ? Take dqsp-sux-mszlcja and prescription medicines only as told by [...] provider. Document Revised: 11/22/2020 Document Reviewed: 11/22/2020 Else[employer] Padded Room Patient Education ? 2022 [employer] Medication Information: The exam and treatment you received today in the [facility] Emergency Department were for an urgent problem and are not intended as complete care. It is important for you to follow up with a doctor, nurse practitioner, or physician?s esl instructional assistant for ongoing care. If your symptoms become worse or you do not improve as expected and you are unable to reach your usual health care provider, you should return to the Emergency Dep[facility] (more content not included)... [facility] UA Hyvgr5zj 11-10-2023 UA Bacteria 1+ [facility] 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: Order Comment: Urina lysis Microscopic order added on by [employer] Expert Rules system. Performed By: #### 6 [id number] ####[facility] (DEFAULT)[address] [place] [address] UA Mucous 1+ [facility] 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: Order Comment: Urina lysis Microscopic order added on by [employer] Expert Rules system. Performed By: #### 6 [id number], [id number] ####[facility] (DEFAULT)[address] [place] [address] UA RBC >[address] [facility] 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: Order Comment: Urina lysis Microscopic order added on by [employer] Expert Rules system. Performed By: #### 6 [id number], [id number] ####[facility] (DEFAULT)[address] [place] [address] UA Squam Epi Few [facility] 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: Order Comment: Urina lysis Microscopic order added on by [employer] Expert Rules system. Performed By: #### 6 [id number], [id number] ####[facility] (DEFAULT)[address] [place] [address] UA WBC >[address] [facility] 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: Order Comment: Urina lysis Microscopic order added on by [employer] Rules system. Performed By: #### 6 [id number], [id number] ####[facility] (DEFAULT)[address] [place] [address] UA w Culture if Ind Standard on 11-10-2023 Breakpoint UA [facility] 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: Performed By: #### 6 [id number], [id number] ####[facility] (DEFAULT)[address] [place] [address] Color (U) Yellow Normal [facility] 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: Performed By: #### 6 [id number], [id number] ####[facility] (DEFAULT)[address] [place] [address] Culture? Indicated Invalid Interpretation Code [facility] 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: Result Comment: Resu lt created by rule GL_MAGR_ADD_UA_CULT Result created by rule GL_MAGR_ADD_UA_CULT Result created by rule GL_MAGR_ADD_UA_CULT Performed By: #### 6 [id number], [id number] ####[facility] (DEFAULT)[address] [place] [address] Glucose (U) [Mass/Vol] Negative [facility] 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: Performed By: #### 6 [id number], [id number] ####[facility] (DEFAULT)[address] [place] [address] Ketones Ql (U) [address] [facility] 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: Performed By: #### 6 [id number], [id number], [id number] ####[facility] (DEFAULT)[address] [place] [address] Micro? Indicated Invalid Interpretation Code [facility] 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: Result Comment: Resu lt created by rule GL_MAGR_ADD_UA_MICRO Performed By: #### 6 [id number], [id number], [id number] ####[facility] (DEFAULT)[address] [place] [address] 23191 UA Bilirubin Negative Normal [facility] 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: Performed By: #### 6 [id number], [id number], [id number] ####[facility] (DEFAULT)[address] [place] [address] 98322 UA Blood LARGE Abnormal NEGATIVE [facility] 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: Performed By: #### 6 [id number], [id number], [id number] ####[facility] (DEFAULT)[address] [place] [address] 23271 UA Clarity CLOUDY Abnormal CLEAR [facility] 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: Performed By: #### 6 [id number], [id number], [id number] ####[facility] (DEFAULT)[address] [place] [address] 79514 UA Leuk Est MODERATE Abnormal NEGATIVE [facility] 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: Performed By: #### 6 [id number], [id number], [id number] ####[facility] (DEFAULT)[address] [place] [address] 43058 UA Nitrite Positive Abnormal NEGATIVE [facility] 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: Performed By: #### 6 [id number], [id number], [id number] ####[facility] (DEFAULT)[address] [place] [address] 74512 UA pH 6.0 Normal 5-8 [facility] 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: Performed By: #### 6 [id number], [id number], [id number] ####[facility] (DEFAULT)[address] [place] [address] 51571 UA Protein 100 Abnormal NEGATIVE [facility] 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: Performed By: #### 6 [id number], [id number], [id number] ####[facility] (DEFAULT)[address] [place] [address] 29675 UA Spec Grav >=1.030 Normal 1.001-1.[address] [place] [address] 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: Performed By: #### 6 [id number], [id number], [id number] ####[facility] (DEFAULT)[address] [place] [address] 44552 UA Urobilinogen 0.2 mg/dL Normal 0.2-1.0 [facility] 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: Performed By: #### 6 [id number], [id number], [id number] ####[facility] (DEFAULT)[address] [place] [address] Urine Source Clean Catch Normal [facility] 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: Performed By: #### 6 [id number], [id number], [id number] ####[facility] (DEFAULT)[address] [place] [address] Urgent Care Note- Provideron 11-10-2023 Urgent Care [...] Social History Medical history: Resolved Asthma, extrinsic ([id number]): Resolved. Osteoporosis ([id number]): Resolved. Fibroid, uterine ([id number]): Resolved. Abnormal weight gain ([id number]): Resolved. Viral wart on right thumb ([id number]): Resolved. Sternoclavicular joint strain (848.41): Resolved. Migraine (91873671): Resolved. (584359265): Resolved. (070909815): Resolved. Acute maxillary sinusitis (732355442): Resolved. 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 Rectal bleeding (471796359): Resolved. Iron deficiency (99647103): Resolved. Antral gastritis (3698927): Resolved. Esophagitis, reflux (288226967): Resolved. Hemorrhoids (391095227): Resolved.. Surgical history: MRI of brain (6927238256) on 06/02/2021 at 65 Years. Colonoscopy ([id number]) on 04/07/2021 at 65 Years. EGD - Esophagogastroduodenoscopy (8641763980) on 04/07/2021 at 65 Years. Removal of mole of skin by excision (893474015) in the month of 11/2020 at 65 Years. Excision of skin carcinoma (402533570) in the month of 03/2020 at 64 Years. Mammogram - screening ([id number]) on 02/08/2020 at 64 Years. Bone density scan ([id number]) on 05/30/2018 at 62 Years. Comments: 06/02/2018 15:04 Angélica Cole LPN report scanned Mammogram - screening ([id number]) on 01/14/2018 at 62 Years. Comments: 01/17/2018 15:38 Angélica Mcrae LPN WNL Colonoscopy ([id number]) on 06/08/2017 at 61 Years. Comments: 06/10/2017 8:23 Angélica Cole LPN normal Bone density scan ([id number]) on 12/10/2015 at 60 Years. Comments: 01/14/2016 7:45 EDT - Allegra Rosado Osteopenia Colonoscopy ([id number]) on 06/01/2011 at 55 Years. Comments: 08/13/2015 12:16 EDT - Miguelina Patel normal Cardiac catheterization (36143814) in 2007 at 52 Years. Colonoscopy (618762100) in 2006 at 51 Years. Appendectomy (127038423) in 1978 at 23 Years. Total hysterectomy (884287264).. Family history: Primary malignant neoplasm of colon Father Grandparent Diabetes mellitus type 2 Father Osteoporosis Mother Depression Mother CVA - Cerebrovascular accident Grandparent Coronary artery disease Father Alzheimer disease Grandparent Dementia.... Mother Hypertension.... Mother . 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 Normal [facility] [address] Urgent Care Record [facility] ? Urgent Care [address] [place] [address] PATIENT DISCHARGE INSTRUCTIONS Patient Information Name: FLAQUITA ROBERTSON Age: 68 Years Date of : 1955 Reason For Visit: UC - Dysuria; URINARY FREQUENCY/PAIN, FLANK/PELVIC PAIN Arrival Time: 11/10/2023 19:27:17 Primary Care Physician: NICOLE PETERS DO Attending Physician: Patricio Moser PA-C Comment: Visit Diagnosis: Diagnoses This Visit UC - Dysuria ([id number]) UTI (urinary tract infection) (N39.0) If you [...] legal documents With: Address: When: NICOLE PETERS [address] [place] [id number] Business (1) Within 3 to 5 days Medication Information: The exam and treatment you received today in the [facility] were for an urgent problem and are not intended as complete care. It is important for you to follow up with a doctor, nurse practitioner, or physician?s esl instructional assistant for ongoing care. If your symptoms become [...] so we can reach you if necessary. [facility] has provided you with a complete list of medications post discharge. Please inform your network services project manager/provider of your visit and for further instruction on these medications. Any specific questions regarding your chronic medications and dosages should be discussed with your primary care physician(s) and/or pharmacist. New Medications [id number], [address], [place] [id number], [phone] nitrofurantoin (Macrobid 100 mg oral capsule) 1 [...] apnea Patient Education (more content not included)... [facility] Coding Summaryon 09-30-2023 Coding Summary HTMLBase 64 TxybytvjNOv3yWk+PGhlYWQ+PE1F VFNrI99iaIGscE8wG8CYTGvQSubb ZEYUCWjOYdFdnuThME1mlIWdYKKm IC8+HC3vBOLrAtfaaCWvu7O7aHE1 Q67qew2bFYmkzBE3UOVcVtSpsyww l9rzxAs3GJjmPyicJpHn GYTxjG46BDH7fM69Lj41iOTkbNNr a3nhsFk1OoJeRHPsUOS9wAvjLQql j7YuLCDgJ14peWEci4I3 XBLtaPcbtRVeGmQcvYA6zT3dJXjp qfkpv2fthjlnYkt2dj15mSCsz3Y2 tGZ3A0MlfhV0CJRmzORw AypurTWOoR9ccljvv9vmyseyDwUp GJNiBJg1JIv9JVPliCbrNqOoDD22 ZAV5QOZtleXkN9MqMQUg oStaMfQ0g9X9Cd2IQ3QETafkD3HD TUFSWTwvdGQ+JP31by57N0NjUrbp Wun6FEDvLSJ2kBC3rJ4i MFXmFPvbu0Q0yMZ6T5RidlXmrk1f f3auWEGgWJdiO15bjDUsj5Y8ARJu hDY5STPamBplLpAdfG04 Oyc+WHHfoYbxd5TtLkmbr6ink0zx iXx7TepgCJJgkwAsjTutBRF4v5Qq Yv8uUBFbrUG0zYL5jL7o HeZmVwX7DHnlB034NgCghCUtBgvs B99yW2CjvFO+RDVhRqa9VSUsdGnj SX5gJ9GqBFVthkfqbNVk gVgxEB9cAVDugitxHPPxuO4mIEWs Z8r6SdRhDvL5PIklE9FtHQRftavi Qp00mO4bZaCqRoZ1VQhj T1VlftL6OTJjhMBhUJboSMB2V69b u3F2FXRpJDHhOMA0sXF4xF9ndEpj bjogbGVmdDsgdmVydGlj MDhsQGztW162KPSloLpkPzMnWGak ZyBEYXRlOiAgMDYvMDYvMjAyNDwv dGQ+VGFoSKH0cLvfLXEr aXFvZOrwKu0zbOlebAiiIH1wGZXm bjeoQFMpsH6kZSPebTRhfTgvQC8f IFCvyjmpn731VsDaZPM8 JYYbhOKxD8PmpU3hDtDqDMMxIQQk E5TasLEvBKjrS665LCbpTyW9QZUr fjWmM4JgTVLbcJxqZtH1 h9R3Eq4Rw2IewbcwF1JktVBxWaLv WodrEAi3N5JkXdzdbZZ+NS49VQLz DZ67BDn9RCR8yFwjKXek IRFpB0KwjE4eSvCxWLIdEGEpLks+ PHRhYmxlIHdpZHRoPScxMDAlJyBz bWfbCG9eVo5nLZShSXJn uKxevBNcUhIvt2mzWEKwHQbzDO1y mLzlT0KukSC7POLjy2r1Sd07X85q N5ClvYJ+LPDllQP6lWA7 gI6fSvAbHhP2LEwdR143LlQjpHMf Htgay6zqi7flfBy0YdI5BLMxqrFt gAmwSUH2i8IvDq60W04d FUhyMWRiIFFiGDYbJHUgoLyhin3y tB2gCq0+NDLucWC9pWO6mF6kVjOy SyP0DWooP426ZiZemXZs Fxhqs3xes3zxpBt1SnOwMVUfdsYv lDwpHAA9j0MoPq38L9RrnZbnn1Ng Ena2en07lDXqi3V9nCU9 R4CnSLBchzcbuNTfuFmrHD6rXVUu olwiHBTutC7zZQIaA6q8OgZhHcC4 ADrkV3PjxdA2OVZftTMz RRNtyGJGzS8bmfdwu0bdwmvjThPs XATwVLy5THa2VOMfoGbbNdAiGWG6 HwF4KGN4sKDurG4bvNfk nvunvZ7gWhb+WGA7vTAnjMNKEJ9k OjwvdGQ+IGKkDXQ3fBggHCihQTAk qL7lVNZiU2l2SsSqEnA9 VLwwL2IckuC6HIQcuVNvFZArcWCA xT8oqwxgf8hjpufrPwIbPZQtAUs3 SRf7TFJwjMicCpUpIPA2 WnZ9NUL6gAOubU9umGrpgkvbfL8l Oyc+IjutpQumTWI2IBj1Z5WiJfr2 BNChtZvzNO2yePXiEIzw Tc8neHugsNpeZR5sDAUisnyfm797 KbLfz5xcHIPseIDpKVccZQZ7Y89h n3Q2OSMlUNPlNJD6nQZ6 qC8pmWlvpioqbZKnfXsbmnYnyQlp ADidZVrvR972VLFwnKpmFwYnIJc8 D6LdZnz4GGNkjEugMU0t wZIhOPvmIi3eiEltgZomKR1uCLLx sqrgv731YtBtv0nuRWOhiBLrHIhb OKD6Y83af6N6JNDdRUHb PWI5lAM8nE7bwRmyvmvcoAYbbPkl ynSkiXnhULlfOPisS445MBGpoFzc OjZhxXj5T4FpAnm8KIHq hHyiPY9bpURdTDmcOk7cyZzgqCgp TG6sORTgislys175GpByr2rdHRSi nCEqORsyHQB4S77kd8Q7 URTqHCGsBES7qBH0xE8qcPkolgyd mEDwvJmjgeBsxTykXFkyIGamT254 IHRvcDsnPlBhdGllbnQg VErvIMs0Z5XvObnlpMV+PT45SELh GF23zEAfaFTby3qvqDx7NkZzTMZx YKW1nKuzRUsxz9WiWUBn P29weZVwo1I6DFYywUlizGRlTuWq vAL1oT6qQWxqyfaiu8aogojeFstv l0ssti81sH90C03dLBtt MBAnFWBeNDPwFYBtePdpbr3heZ0y Ii8+QKEpoNV7qNX4mB0qRDMgLdM2 SHykN216WmVwyDKtPnvk z9kud1yklBh0AvV0RQGdbxSkjWtz UTP6b9MzQu10T57fQXvgRHPqPZRb HRYgKCWttBrfgv7owW3i Ii8+CUKpgXE9zJX0aM2dIpRpKdD4 ZDvgF474DzTtgOYmHveiC17lB3Wp dXA+ZYVfZqb9VSDxaWvg JI5djVZeMJhbAf6wLKC4JxBuInJt IVfuO1DlUECybbwjztoraBR2OUCl YESmtM93Aw0bhDduTYRh uQLXkJ3aqkgzw8wfolbtGdPcNARv MSf5MIb4FFGbvMbrFuSsWKB9CzQ4 WHQ4xPOinZ9haUrxwtnd mQ8qQ5UsVDIcckacTr78jX7dInHu VvI2TMusGyl+R8STP5kEUEOMAOcW GOPSWa85B2VzYoy9XPVs fFklWY1ysAAjPLaqKi8wqKhiqJxh WJ9tFJVepuffZRBwyR5cRURktEZz kDiuPR4xEVMqpfudm731 OmOoVBF2CWSjvGPaJ8KhtB7eFpUq FGDsZPLsW2GjeJAtSOqeC197EPkl VmJ9FMTjruHtQ4QuNZVh jQpaKrY8r8J1Bd4zBX4vMD5fVJV3 FH55ZC66tEOkj2F6lSU3X8GhUEEb cbgtrwxwgFT2VHZtQEGg bW85lOAjPAjuHi8xg7W3z713BTAd YQZlaX19Dg7liTyxFRZnsRYAeV6h kmpps3adhivpArVkIALr TLg2UQw1IQOszMblQgWyQCQ2PmY0 HCH4bRTjeP8ypLqtrzbpuF3bKio+ NucjUUEyynN8X1DhMxv5 XKTbaQdlUJ1ifCMbVCncHt3lpNsy hUfaEJ9zUJFbxzqoJCRgoS9xVGRv dCRcqNhgHS6fCTDtzzxm b702BpSdAST1IJMbwWTuY1ZqhE1l YpEdAOQmGZPbS0LijFRkBIvyP682 NBilFaF2PMUkyyKwK9Fg FKYboFwgGpU7n6Q9Gq9YRN7XRHG5 H9MeXin9LQWcpRmzDL7gtTFlWPxf Ke2vjSnneTfvUW5qLUGf kwprUTSetO1xGFAraIYmrBzpHJ7x QGUjegkzy063HhOzXBO8KRGceVAs V4GolQ8zZaKvNRWaWVHe C5BqwPOsFGitM127ALorUqH8YOMh axPcR9ZiXRGfjJouRvN0j3I0Nd6K UDwvdGQ+JR95az07D0Nm XkpgFvn8ZCUpBDN1eHB4eB5yKZAu ZFpbo8I6gWM4Y3BsiwQnjw2hf3rp DQDqBSajO86lcSUst4M2 EMFqmUJ1MJRxtBpsRpCgdW91Ruv+ WFOyaByvt9CwFkcjb9cth0stoLy3 IjMwJSIgdmFsaWduPSJ0 b8QaZa01X35xIWfzIJNlWATyXNUl UVOrdLftyh0caX1eIy0+PGNvbCB3 vRK1yS3kCdTwThD2WGum Q284KsHihGWiRczcz3rwf5dquJc3 QjIpYBIgflLxjGprZYV3p9HtVx21 F0XczDgwt7XzDmy8lx34 eTFac1G4fQJ9M6BpZJWvtqpunNMs jWkyZR2hAEBdwuepNRDnvN4vRDBb A7y1GsReEbO7VVvsY1Lb vcY8KZJzsUIpUZXeyHMCoP2paczm b0pxavmrImHaWLNoHPo4DCr0URMm vDqwFsFwOWS3XmZ8NON4 hAGhoX5qtZnztsmnsE2uRtr+UGh5 f8katLMcNL0ryUW0CV75LV55fMCy k1Q4fXH5O5NySIDehbmy afiuwML6JMEwDXBguL37Ej8zbYhx Rq5lGSNpLWU7VRWwrOTlF1TjzB8a LkEgILKgFJBkH9LziVJz COknM712QCwjCvR5DLPjksKxM3Bs NLIhkOpbVmO6h5E3Kn0IDP19TS70 ZG65eEOim7C8zLP5B1Zr ZFSxdygqujvopFC1CWXiFRSqmE68 Cd0pgQsxSr0sQBFrELV6DJMllGFe S7RiyC8jIhDsKWJdJKHi T7TefCThABhxU818SVutSlZ6LTFn qqPlL3JmTZTgmDphTmD1x4D3Wb1E Ik96WW85DJ21hBAaz1R5 mLW6N1NnFOZbinrstqyfaFB8IHYv FULvuJ48Tr7nbLubEd0tICCkZJP5 ABIcmPRmH6IbuX8hBhLq BEUlMEAhW7TjhPSdPYnxB956SBdk LnB6WBGepyBmX2KzRTXscCjsViR3 n4R1Kq0QFZofezh9Y4Ko PjwvdHI+RL68DGKsCL44aELngPPn l3xflYw1TrIgRZRdFGX2cUakDBsg e8MhIRGqX42fyCSjn6J7 IGN (more content not included)... Normal [facility] Reminder Messageson 09-28-19 24 Reminder Messages - From: NICOLE PETERS DO To: [facility] Clinical Pool ([facility]); Sent: 09/27/2023 14:04:18 EDT ! Show up: 09/27/2023 14:04:18 EDT Subject: Results Follow Up Actions: Call the patient with result(s) Due Date/Time: 09/28/2023 14:04:00 EDT Reminder Comments: looks good ...not gout Results: Date Result Name Value Ref Range 09/27/2023 11:20 Uric Acid 5.1 mg/dL (2.6 - 8.0) pt notified of results [facility] Uric Acidon 09-27-2023 Urate [Mass/Vol] 5.1 mg/dL Normal 2.6-8.0 [facility] 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: Performed By: #### [id number] ####[facility] (DEFAULT)[address] [place] [address] Documentationon 08-25-2023 Documentation [id number] Ling Robertson 1955 F Date Provider Department Center 08/25/2023 [facility] Anthony Heal No family history on file Normal [facility] Controlled Substances Agreem entson 06-29-2023 Controlled Substances Agreements [id number] [facility] Coding Summaryon 05-11-2023 Coding Summary HTMLBase 64 WwuifwrmDKz8yXb+PGhlYWQ+PE1F IDWnT22vgEMizB4jK4PPUGbUHzcx BOHANWaMSxHfefAmQH6mgGLxZPHq IC8+HJ8uDNEdQkdzrXIxo5I2jMD1 S43jeb1bDFfwdCC5UIVmJnZxrurj x9fqpFj4NZzlNuywUfNd VFCqqG41VEG5uF04Tu90eICrkHXg f7ardVy7FfWySSPiWYK0pLhiBUom t4GeVFJhR14sfBJja6X2 NQQwnNkmtAGgFqZcrPM5dC2sXCht bfmac6pdmcpjUsl8jo39eJBhp2M2 uFS3L4QdunH8ZTXwlUZh BnahrVRRzN2ctqrem8yetkroTfKb SQEuKMs6DDr8UFYskHktBrWyKS66 NPY3RVRisrNbE1FcUMZk pUyfTxM0z1E9It7AI6WKVzlhW0JH TUFSWTwvdGQ+GR43vm53W1GrArag Ezg6MNVrUGV4nGU6zD7q PKBfRFvae0T0eNU9T5PqkxZvcw6n y3zzJWTsQWmqJ30ctIWtb6L3VEVv eSY4DNPbjJtxZfCdqB14 Oyc+JKAhbMhdh8FcDvaxp6mrf9ad jXk6GshgTYVbkgGbiOgbZXU8d9Ra Wx2eLINswSU5iLN9rJ4t GfCzNbC5HYgwM511UkHjaOBnWata M92cM9LajUI+RRPtOau0RKAgiSdz IJ0oO1CxTKVvwffwiWLx wAwtDR5jUMErvixkXTKoaT8jSLVx Z8i1HfYhDqE6DSzsA6BwZBHawbod Ef14hJ5yRiAyDkR8UXib R4AdklZ2HYOalTQkDWcmFDZ0S02d g3F7MFYuSOOtZYL8rCG0gQ6daXwd bjogbGVmdDsgdmVydGlj ETlqVNlaC766BEHmuYsqTaYmVMxo ZyBEYXRlOiAgMDEvMTYvMjAyNDwv dGQ+VYVhLNE2oTfvKCXh fDLxIUrvJc1laCttgDsvJE9xTMYl nvgkHYHohV1tQTCgoBKivKsmGQ9y IUUtpaxxq121MfPoWQI7 OGMutXTnG9WkcH0nSjWsLIEyVEHd E7NpnMOsAUatL799OOzqEkI5HHBf exHiQ7OkSXLfcUjvWnQ6 s8S4Kp0Oi3NegrzyX7ReiPPrKlZu PqinZKk1E7VyIqluuEO+YJ84UXLa CN73AVi7QGF4nWsbSAgv ILLgR8NucE5tDaFaVUFkYQSrLic+ PHRhYmxlIHdpZHRoPScxMDAlJyBz cNtfDM1xMe4fNLTaZMVq fBihzUNpQnKrn2hqOOWwPAkfTR9y sHthQ3JmrXD1IEClc6f1Qn49D47n E5AlzWY+WUQjvPK2eHK4 mD4xBfJiCqF5PKbyA913SsQonFYn Amard1qts3rsmWi4ZpC4EYRjbmZc nNikCZJ8y9RlEk01X95j APryKTBaNLOeVJOsATLscQrthg5x zM7fYz8+RXXqaNS4lHS6iY7sKzFh DbA0IUevF937UoEscYHf Xlnrf9eck4jjlIe4QsSmKTScvuUq tZtkYZE8g7AdLr91Q7HlkFlro3Wq Dqt2st62bZSeo9M5pNW0 V3XqUZGdfygpfKSjaWbdHN5pPJJe isdpGSBfdE0pGSEeK5x9EdHfTbK3 ATewY6CtioD8WUKmfQVz FOYxgJZMdT8gutehd1byzwzxRcDy SNWwQWf5YRn8GSTadTbfMfFsMTZ4 QhF3TGN3dJZnaZ6cgRzu xancxZ9oXrb+EOF4xXUwxBPLLP1k OjwvdGQ+LHQcXDH4eJjoZEqhUOHg bW7gUZTkC1d4AaQnHmX0 BTgdF2AyhcX0XCMjfPGkQNHoeXVW gM6twjgri5tkmlkgEfFkXVLhPEt5 TUt1LQQprKrvRsAgVZT9 LuV1IWZ7pOKekS4cbVoddkcccJ8m Oyc+JugcwFwqTSC0CXc3C1ItRod9 MKOcxWknAJ9ofSDsWGsr Ab5loMokcVaeEV1nKMUyvomea583 ShVmr3vhYRXuuPQeTMfcOGS1Z91f m9K8VRDbXUJzLNL0aFX3 tH8hkMnwdkvfxXNsiDzzgaXbqIsn FSwnCVkgD333EBCmbSguRuGsOYf5 A6IdEdo3VEFqvIqlAI5o zUDeCHafDh5ybCzprJwxYB9sONId mhlpu144WcIgw1ziUKTpnEJjAHtg AHJ2B07tj7X7SUJvTZNm YAT2iWR4sQ2nkZvfxzjedRVkvPge dsBizMroCCzrBFkcV701TSCbpLly YpSzbKr9F5XfGqj7NYXt cGpfGQ6urMObNBhuJy0gbShwoMtp KE6lSASipokyd630UeUvr8glYWYu mDZiIKyrJES0M76hh5M0 NTNsXPDwTSG3kUQ2tR6imDcwufld sLOftRsukzEtkKjrROpkHJnhO426 IHRvcDsnPlBhdGllbnQg DGvfMAx5M0CdRdurlOI+CO76HVZb RO78tLDsvOCup3nezQw5EuRiLSNz IFM8xIfbKIvuw1PyBBVa N34uiVJjy0L2KSXwnCrtuMMpDfNl sTB0pU1eZZazgngvl3lbbmxiQajo t6cjqi71eE50R34wRWea OOQeMIZaICOkBPPbyXnsay1ptG6z Ii8+YADwkLP1mOD5eN6jQQIxSeD8 KObfU774PaRwiGTeErtr h6ygl6xtmGd7DrQ8KSKxxhMmoGxk YVB6d4IoCo35W25xVHdqWMIbEGFl RUKcGCHilZfymo4mgY0c Ii8+PFJcrBX8hPV3xW5zUnIqRwG3 FKfjU927DaRwrJIxKzihA33zI0Rs dXA+GZLzWqm3ZNRqsLha TS2bxJIoMAwuJw3nWNG1KkLuUpYl YQxfS5UdYPYhbqeehggytVI7YXBy URRddJ46Lj5qzFvuGBZf pNCZeL5miubdl3hzrjudNzMhQRIw GJu4TEg4USYdwMurClXqZHH1FnH5 PXR2vTBheY7lqDxjvomr dG3dX6EoTYWxzhpoUo48fK7sCcEm UyB6GQarFtj+U0ADF1fOETSUAMhB SMRXRp64A0DpNed5XAVf oMznHF8zvWApZPxdBa6leXrebAot EO4aQJIbhwazNRRbjE1vFUHvlHUy zDvdXH1cXINjymtzs837 SnFfNQP5DRWppAYvD0TphG5lDwZf WSLfSTLcV5GahCJxXDemA131GLtm WzS8INEekyFvH3ItXNKl yEsxIpJ6t0J1Sv9oFH0xUY9rHTM1 VM08TS77zKLvy5D1mAJ0S2UtOWNq pbcaqwpdgTN7TDSeATNo wH87nGCnXMikFp6uu0B4f081BOUt KSRyyF64Fi5yjWzoHRPjdHGZeI7t vsspb1fquuqfWsKmRPHx TUf0CMq4UFJpkGrtZwRhUGT1SzB4 QFF2eGOwuL5olRwpsyfzrZ4tJum+ OxedMBTytjY4N7YvJfr8 HCZoqBpmNG4igZCfUVffWn3caBgz nOpwQK1cNKOjioyuLJAxvU4cDLXt xOAwzQzwMK7jORWtvnih k867FeWzKPA2TMGcyPSxM4AipF3n XxGbCZUlWYEsR9CmtELsYTqzJ646 XLftNoX6ZKGlpuVhB6Jn QEPknKfcDbB4f7E8Gm0IGW1JQLX7 O9RzYks0BMEfaLkfDH7siBQyUDxu Da5kzPkggKpuDH6zZWPk zhcaJDTpkH7oYMAywQYouUwyJD9s LAEvbucqb995QjXvNTA3THEfiSDn G5XjtJ0mQeBmFQBqYQSq A5CipAOmVFdvJ621WAbyFlB8IJKz xbJkW6XkEQCaiZzeUxZ7u2C6Hg3D UDwvdGQ+VG36ca67Y9Or AphvBrw4OYZcUAV4eIR1tW2vFWBu GQzdx0O3eHZ5F2NbpiJiwv6lu3wo QOGlFVcsV22dnESgu6C6 OEOwyBY6VYKuiBrvRdHicQ04Jja+ WIAieKwef8RgGdixn5hcd8tcrTc5 IjMwJSIgdmFsaWduPSJ0 b8QdPw63M34oAOppSXYbGBOlAORq NLPuzSiukp2caN9rNn4+PGNvbCB3 uYL0bG8nZlZfJtN8XSna U597IsPtbRMiRsqoh8deo8tflIp6 CaVtNNWrysFqjTwbYJK0q5LmUz53 I7JfuCuog3AlOui0er76 uBHrs7K2iKU3T9HkQJNmvucbeUZs zTnwTC9dDHAkmmjqKIYwdM5zTCVd D5a8QnNjLsA8GMakY4Fy xtR9OALdxQMwBIYndDHRmQ8nublc o9rjrpgoUtSuDOZiOYm9QCs7SIAs vWbuJzAiMOB0KbB3RFY0 vPRsnL7otUtgmlldmV0oGkc+UGh5 a0wjfZRnOR8hbUQ8RG38DX32xRDx f3F3pGO1M4GnCSIgmrgw imwxmTH8WFRfQSViiT85Ll6jaKnh Hk2rLBEbGWL8OSQwmBKlI2JqyM3q OaGzBMWsLZZmY9XxxYEr YMnrO011CWkwFwH9RDEkepPmU1Ll RZHfpQcwOkD3z1K4Zy4BZM36NL78 ID43bJTul5R5mOY4X7Xo BZAftfisqlahvLI1TJKtHUQxhR85 Nd9agIcoHj4gTATeLBO9BOVnyZTo L4EixB2bAlStBZGfGYNy B3FdcCDwWNqtH257LBhhNwI3WNIh scMnV3MsTNPyuNpqSmH2l8H9Kv3W Ur06UV44FS35fKDwk5H1 aPN6A5VkYVHqxtookvsnhYJ9NAMw SWDzwJ07Ov1vfCcmBq4dELJkUUL6 ELNukZHnB4YusO2oUdVu GWQhUXHvS4CznGErZHvqW496OPzx AvV9XMGvejXfT4SbSJKkjXfhJpO1 j0J9It9QAPpwwpz3U0Nq PjwvdHI+YJ05PZVxPU22tMJflIGf d5hmaYn7BeRyXNKxPAU5iLomOHnv u5KfHBWaF12qiCNnd7E7 IGN (more content not included)... Normal [facility] Reminder Messageson 05-11-19 24 Reminder Messages - From: NIOCLE PETERS DO To: [facility] Clinical Pool ([facility]); Sent: 05/05/2023 16:39:25 EST ! Show up: 05/05/2023 16:39:25 EST Subject: Results Follow Up Actions: Call the ordering provider with results Due Date/Time: 05/06/2023 16:38:00 EST Reminder Comments: some osteopenia not osteoporosis yet Results: Date Result Type Result Name 05/05/2023 15:48 Radiology BD Bone Density DEXA Study LVM to return call to office Patient called and notified of results. Left VM. Normal [facility] Reminder Messageson 05-06-19 Reminder Messages - From: NICOLE PETERS DO To: [facility] Clinical Pool ([email or web address]); Sent: 05/06/2023 13:54:58 EST ! Show up: 05/06/2023 13:54:58 EST Subject: Results Follow Up Actions: Call the patient with result(s) Due Date/Time: 05/07/2023 13:54:00 EST Reminder Comments: Birads 1...totally normal mammo recheck 1 year Results: Date Result Type Result Name 05/06/2023 12:36 Radiology MA Mammo Screening 3D Bilateral. Patient called and notified of results. Left VM Normal [facility] Mammo Screening 3D Bilate ral.on 05-05-2023 MA Mammo Screening 3D Bilateral. CLINICAL HISTORY: Screening [...] IS VERY IMPORTANT TO YOUR HEALTH. THE [employer] GUIDELINES RECOMMEND THAT WOMEN 40 [...] NIDA Assessment: 1-Negative Recommendation: Normal interval follow-up [facility] Coding Summaryon 04-01-2023 Coding Summary HTMLBase 64 PcfzamalMEb6cBv+PGhlYWQ+PE1F EIBxD47whDHomR1qN3VGKVdODnfo VFSAFZyCOhQjbgXqER1gfIJyJEIj IC8+FP7mYJSkSqaxtICjq7D3pGD5 G54yab0xAImlpLS2SPXhVmBniqji m7ijsDg7TLbgYstrBfLq MTYzrC51ONM0cB12Ap07oGOgvWQm z8xurMn6LxSaMHLsAFM3xMtpBFht m4XtPYCqO03bqXWwg3H7 SNJfzJzmbJQqSbIwqAL2tL0nHRov mkwoa4arsgxxCpp8cq76wBYpj8Y7 dNE0K5SjraN1MACuyYCg FeiijKHAkF4xpvjru7oavycoPdYo SBUkZNy6UOj4YVLkiGjiWrUpQY13 KIQ5TCLtcqAiX5XkMCTy iNjaXpW3a6G6Fh3XU9JEWhzjT8BK TUFSWTwvdGQ+KA55gi01M8WeFxvu Rrk8MWNtTIP4dUS4jK2y VDXkZUtoe5B1eMV3Y4RukkVwjf8x t2czUCLqEClxH63fwAHwc9G4LHJk iAD2AQKagNzfPgGarM07 Oyc+CCYkyWpmm7PdSmaqw2xmz7yy aHg8BhedKMCdvgKmmWgbMGI4h5Hy Bf7zMFQueIO8xMD7oV1x FiPmJvO0IPmfG886JyAldSWqMzql P31fB8AjlMX+ZOBqOek7STCmbJku MM4gN4JcBBTjyvszlVGz tJmsHN2qSCNdecorPGYuwG6lROLw G8t0UxPzYmM6CVknG2AfHAUsvnmr Ur33sP7mHmGzKeX1FAbf U3UissP2CATwgMIfJPjeNFG0V06f e9M0WTWqZGYdBIF5tFF2jL8ccAle bjogbGVmdDsgdmVydGlj KQrvNVapO304GOWcwZspRgStQCii ZyBEYXRlOiAgMTIvMDcvMjAyMzwv dGQ+EYNbCWK0oOmhKYRb pKYoLTcmRa9vqUtgkAezJC6dXWFr cxreSGQyzK0nZPJwtIRgdWzlYZ0o LZBpvescp969EmHkMWP0 NXZxfNYpP0AfcW2iDaRdWYXrOUWz F0WpqNYfZHjyX626ASsaQaN7NANk ghQtX7VtLAFldFxbAbN7 l7G1Qs9Hs3AlkcbrE9XjmSOzQdHs VyfyDXv6G3XkFsjwbNJ+HW80PJGb ZD64SJd4VMV3fKduDPet KUEhK8UcoQ7eOlQoFIIbAQSwIlo+ PHRhYmxlIHdpZHRoPScxMDAlJyBz vUugYX9nSy3zVXAlGWDt vBiuiRNiYiHwf1cjIJChYHttYW5d wFlhY4FdvSG9GLGpo5d8Sb52Y52r A1WyxQR+PKKxjWQ3xPM7 bS0zNrWxMzK0SEsmC910LwRrtBGy Onwtb2flu9hhtTb6UbD0LYDycyWx cAklGGA3m4WeVw11I19e GFfoYNYgAPZtTIPiDNSugGhaxe9y qG6eGq0+JPIoqMD7yMM2dO6hZtZs HdO7SCkhA258LaWbjGIa Uhstl9nwm3rtuEm4BzXsPVPcimJx dYfnNUR7k8BqJh58R5CyjEihw2Xi Xxe6dk82dXJvy5O9lCZ0 T7TsGBEkiahanOZbjPptPM1jDODz obqhQGLakY7pJNGoU6f7OkKpBeL1 FNpqK5SyypI2TRLhyEUw YTMiaMGXlM3rjplau9yiiwasNeJi LUXpBRs0RGs4AYAgzLwkXkXuTRP4 XeA5NAN7zABdwJ2jsEjz fcuorW2lSzw+OEZ1aMMsiLAHIL0f OjwvdGQ+DDShXOF5gXyrRRufDLOz mF8xFTRnX7h0RzGvCqP6 AWxvL1WijhT8BONsnYQxLNUeqOQV uC7bkjtxd8bhqrmjMsTkOCIhGTr3 RIn2OFBtoBqxYtZzZPK6 GaJ4YNS5sCGrqP7ugMaieomjlO1v Oyc+SpdfyUpeNDY1JOt0B5XwWsu2 RTLcrNauVN8szLAxMYuz Ph4pjIfzjFdySB9fVUQtsylhg701 GqQyz9fwVEDaeIJrPRlyKDR7V16d g3D5JUUhWEBzNIC9kLP9 kV4rbJkyiubmqYErqUoxmuPxaEtt PWlhMNzzO687MTUsrYkyYbXyQKj8 U9FpWcd4DWWxqXaeQC8a tLRmIFpvSe9fdTgofChfEU5mBIXy pnxlh791HdTju4nrPKZotXBeMTdi ZFK8F73vf9D1QUPyMYOp KIW9sLI9nO8dlKcfftrioKWbgCqq deXkfLrrLImsTRhxS233TZSwwSiz FjGhdSq6Q3RfSbm0FKHe jFvcAH3snMQnHEqgHc4kgEzzrJmg GF4nJFDgngzwt815JgGbv9bvWTCn pDLnETqmSDZ5N44sr8M5 LSOdQTWqEHT7dCW5wZ1hrAmsoafb gPOvuElxsrAqaJmaHBpuWOnhY040 IHRvcDsnPlBhdGllbnQg AMrwLPu6D5WrLyokwPD+EV51DJGc PK26uYPwjMFzn8cdpMu6BrQeEYRj UDQ0cLxxUFgpx5OtPSRm X46ieDAex0K7GKJkhFhehRWiQpFf iVB9nJ5bNTzrnbrxs1cffxsqPwfx f6fgbk27jT38C06gTGbw DFBlHKHnIKWePGCkdQzunz6vbB4t Ii8+HULfhWE7rBJ3oZ0tWHTeMbK7 CJlfH508ThBbjGAkJblk j7ukr7jpnMa8CqD8KNYmcoQilXxf MXL0f2OyGr40D48iDMcvKWAfRELu NDZpPFSgzYraci3gsV2x Ii8+ZIZbqVB6nNL9vZ8gNqJuBpJ5 JDvnB602CnRifWLhWbyyM24uW9Ps dXA+TTKtEec9TMNueBix PH6svTBsBWgrLl6wMDU4NqClTbYs EBsiW5DjTNYqtkiyutbmxRS3WWZw WOBpmS84Ef2qlEzrUTDp pOTCiU6ryzsfy8mcdtnvSvTdRYNg HFh2ODv2SDTpcAqfNaRlQKS2VbD3 XIE7dIUumM5ppSjwsare zD4wS2FjYGClwyflBy25kI3gRnQi LxL9YZjmZqu+X7GYW7aOURDPSJxM JJBERq12S5ZiIio9RXOb eKoaNS9lxFBtUVvhFq4ptGrbcLfg CU4lBDFyaaxsPUTqlU6eURZftKSf aWubDS1eZBXrgwoxz828 QcDgRZD8LNBywIOlY6BunK3aHgDj OCFiXMEkK5IptZYyDEjqV071HMrf OmO1DFRclxLwM1CpDVTp zVgcMuK2w5D8Zn4nYG9tXF5fIYG5 AF03PR38tHWlo6X9uHQ0J2KyAHAw wuqghpobfAB8LTMeLOJx aV41bFReQFmhHh9ot1A1v935NWVv OUDtsO08Tt9zyMamPEYqlDJRjI9o zkvrt2rtpkkgHzHaBYXc IYz3ESd6MHPakVbaVcKxIKI1HpU2 NUM9tVLifK0fyGjmcwoyqV6vKtp+ JtxqQEZlmvD5J8KgFgd4 FSFyoXbuDA2dbROmOCweMy7rtMhg fDzgIY2kZKGgwllfWRIxoG1qQPFi nUJznHidZB4nFHIwnzgf z267YhMmGZM2KHSdzFRlT4SuxZ7o QdQxGTChWDKnO5MnoDNsFIigG309 RTlwDwO9ESGrwvBfC0Sd DRPnjPpuAoL8g5I8Kg6JNE1YBFA8 E7FyIsb2MSQgeYmdYI3oyHNmGBob Fo7qaVgedVnjRC8oYTDi tmcwZIHyqQ7kYAQfmSHycZueEL9l WYMqqawad443DsWjMEX0LGAodBSk N1FbwR2vOaWnKVIlMSOs J1JgxUDyQEvkF310XUenJsX8ZEZh jqGqR3RaXJKonVlfDbZ3s2S4It1P UDwvdGQ+CN74of16V5Rw ZhgzZph0UEOfKYH9sYZ0bN6kWFFc ECsfb0T7cOQ3Q0MbmxGzfn1ii0fi OSIbCOqiA52rmWYvv8N0 PPKzdYR2TANviKmwVzJmvQ66Fgi+ YNNgwKlop4FyEsggq3fsr8emrJc1 IjMwJSIgdmFsaWduPSJ0 v8VxFq17W14dSOrwNJAoHNHyFNEn ZPLpuBmfbd3pyQ6kNn8+PGNvbCB3 mXZ1vV3kClTcFyU4KUez L415MwIiaZCjLslps6una1mdePd1 HfXmWEWgcwWtlCrzDNO7z5EeAi04 Q9PenEtvq7VnPmn9ug99 xYMbr7C9dOJ3Y9ZgYQJqyzxreTXp vKboOA9iUGBjtedsAEMjpA4kHOFe S9z2PxNtQrT1HNkmI7Kh vlY7NVSrzFSsMDMlrDRLlB3nyspi p1akihseAeVfHHCdNDn1YLy1MZSo dDgkQmQnTXL6PxD1JKN0 mRRboD8vbCiequcffM3mNdk+UGh5 a0iixBAfYO8rlUW3ME36FC40aMAu e8A7bBW7E9NgYWTfffjc kjdbrJG4VUFiJXMdyD62Go1tfVyw Ti1kGREhIWU5SQTgyYLhF4KdoJ4a FzSqLVEjBCTrV2WwlHRm TAlnR518NVgzZoT6FUCaulJtW3Yc HVZrzXtdWoR6s4T4Zy7OXA12OY04 XX12iAXrs5C4dVA8V5Mh UMRlkaumjdehiTF1EQGdVKExyJ33 Us0kkRxkSf0oOTSiLDA7FOWapRUr U5NidF9nJtBaYTVlEQVt C2WjkGLmLFizQ408SSgeXgJ2FHZy qzQaC4SzZNFqxSasUpI5p8N0Ju1P Vh27YZ20CM48jDShn5N2 pIT2U2HmEIChznogfpgdrKP5VYBk MBVqaD86Bl9lrUghVc9tBJHlVWX1 CBSzhMLlO5GbrF1cWuMi FRBeELRxJ0IocAWgVKpsU757HTrd AvZ4RDGuraKbY1VmSUHxdWjfWvB4 y2V0Yu2GDSzimrl8B9Op PjwvdHI+AE99IUMiXN37aOQpdKJj n0nmfPv5JuCdVHRiZVW6yVpyXWsh g2GbHSSvC91qsKHxt2J9 IGN (more content not included)... [facility] Coding Summary HTMLBase 64 NelcffhvUYu1iDf+PGhlYWQ+PE1F JVOcV82eoROdlV7sZ5XRYZmIRooo UMONYWnZOiZhvsYoLT1cuNQeHKJp IC8+LZ6sFAZwSuoxkILjx5F4bQH9 K66fsc5iIQmfuIA4QPGaUxVlbkes c9muwVz6COuqBwcsWrRa VNKfcP45DIP7mN32Qb84dLJcoFHp b2dbgKc9ZuKjINAyZVY3uUubQFsy m8UpOWDnQ71pkXHtu9P9 ZSVjxLfxxHLlMkHjiVH4uC9pCMqe xuask4bdsrldWhw9vu57zEVby1S5 eCC6A8WsgbD6KKIrlYWq UyygaGZDjN0qcdtlx8vyywneTzJk TNTeZEp8KZe3MYLvuSidNgFiCF34 GKB6TGCzmgGaT4GuIYQm nBlkNhB1l2L3Lw2TX2EKFqagQ7JI TUFSWTwvdGQ+OK48jj31F4MxQzfp Uni5FVLzRSK5oLK9iM5o AAWwLVvxj3D5ySK6Y2JgccJrmx4j s2xoMVBoGXdlL28nwMBgr7F7JEZn xSP5CUGeeGhiSzFjgT30 Oyc+CVMfpLlji1SvYxmeu1fbd0py wVc5LwobWDSzlvHihHxeBIH3i9Qd Te8uLDAbnIB0rOG5eF7z KgOwWvW1RAxlI246AlMhiZAaBpnq C93dI6HnrDG+XORiMpr7IIFtsRoj HN0xK2SgHYKinvqowWMv mYxfQP7uGPHilmqlNQDpeN9qYLFp X7k5ViLyXdF3VOiaP9UpPADzbfmz Jc92nC9rHzYkEsW9FAca L8VadiP7XZMqpURtCNlhBWG8R12n z4B2OUDoFIUsRQJ4xOT5qE2ynVxz bjogbGVmdDsgdmVydGlj GTajTPywO160WSVigJlkOoSuIUzn ZyBEYXRlOiAgMTIvMDcvMjAyMzwv dGQ+HHDeWJE3pGnuLAXc lIGdPAmaTg1gyGlowUsxUM4aTJHh wybhVDAqdI2qDEErxYTpiGisRS6b CZGukquau848EcUmJHC8 SSCnpCHmG3EwcH1jDkEkVKJdGZAx F9BzbFMeWMzcT865UCqgGpN5NEJd juAxI8UtGZIomXwfZyQ8 y3N5Rp3Zb2VfkhuyE5JcnMRkDxUc SgmlHGo6K9UpQzxxcZT+TQ87SXHb HW50KGe3NGG2oLysFIsz MLXcD8BmvZ1kOlCbKSDtZYVmXwo+ PHRhYmxlIHdpZHRoPScxMDAlJyBz hVvuFS9mUs6qSRCdUOXu zZrbiKPaTlClc2yfMGJuYOvmUA7s gEetM9OkxSK1NQYgd9s5Xd86M32a E1DxyBZ+BWFskIR2mED2 gY5qDmDaEtC4XAwlN993BxNdvJEd Hxjng0vhi6mkrYo3AyV3EDXkykVj lKpmZFK0c9TaSg48D30o SSjcJRLoINPxHLPqPMLyfTptmi0m yA6uQc2+LDRohYM4qNM2xB1nMcEq HfJ8WXkiY409HyEkmUKt Qyyrr9vvf8mciSk9SyGtXIIjutCm hMgaNNO2j8ChRu56R3QaiVnjp5Jj Oym0fz63vIHrv3X0qQF0 L2AvFANkugomcNMefUrnKJ5vVWWs dewrTFQlkJ8mBBFlB3i2PwNzFqR5 LUsnP3LufaI3WMTxoSEs LQLkfGOMyU2lghbtp0sdwgydZuCu COAjYKj7QEg7MOUnuZcyYtWmCMK6 AoW8GLQ5sZZhyA4tjNsj onghxY3eKki+XPK3pCSjgYBGPH6o OjwvdGQ+XXXvIRL2zNqjCWjnQXSk dL7jDSRkW7i3TuTlXcZ9 ZNzbN7GcskH4NTOujYLjULHhzFZB sM4mymoxq8zcefkbEtGdVLIaNFz0 GKd2PJYvoQuzWnBnGIC6 GdE3BVR3xFSpuB8grIadudxwdW8w Oyc+PbpywLqwGGF4KRr0S8RkJep4 IDPdlVymBV2oqEUdARii Vy3hrPteyQktXY0xILHlseeot064 ZvCts7ewMBQhfHGwUVzrRVV8P89f v4G5SQSsWSRqJVQ7zMF7 aD1xpUzqqtuzaWKyjUsoeyQcnFbw DKulSEcnA207XYDgtQkjHyEtYZw6 P2KiEib0CFUqtEjtQK5n bIIqCIdqEb6zqYfuwPzkPC2mDGUd zcomf714IpWex4hsCGJpeDMeZLqw PFZ6M60az9Z5GYMtBHEk VQI4uQP1uL9fsOynxlrdaMWozVdr vzCdwLbbBBjzXSriA812ZHMxeElw BkCskRh5L3KiWuj3VYAz yHmfIJ8taCDzCEpyHc1otXfstMmr FP5nLDHihrysx736RtXxb8emURXd gXVkZFjcYUV1B12nh4H8 FJViDXDnIEH3aJL4wQ7bjTjybmku dNEiwSsduuZhvGrgJUuhIAgpX346 IHRvcDsnPlBhdGllbnQg BMabNJw0A8VkGradsKP+FI97FOSf XS78iZAnhCMrk1dfuJl7WjOxCKXf TRG8zCnoZCacm6TkNAMy J36geVGum0S3TQOazXhqyJYiPeRs aGS1lY1tZCrraluqd3fmflarEkow p1siut94tT99F21pNGqy ZPKdRJMuFGHmZEIzfSockm3adF1u Ii8+MQWcmKL3pZT8aH7cQNOdEuK9 CDpcI314UqGixHLgXiea q8yof3kqqQn4RsD1KYLrzjQeuSun JYN5f5WpJb93A61xFTumNLKwPORt FNBgVEOjgOmzva6zcS7h Ii8+ZFOnpEM4rDC9qX5mQfIxFcA9 CAjrD448JxMwfDXgQgajO40gQ7Ub dXA+VVJuPya8DBKngUcz TS8daDGwMDeuMj4kZZY8JyUnOqUl TQahS6RuCDNyvbtulcmqkZU7JGSz FYQgzB31Ye9ixYteMOAp vOBCrG6efsmcl3mrkpeqFtDyVKCt NVj4EPx8RLSsvKgdMsKbBAG2UeZ3 ZFT4kKIruV2duQznobkv iC7xW5KbBGJxrzkpDa07qW4jDnTx GpV6DBrcLda+W4DVA8jIZCLGYRlC SAFVPx50D4VpJuh0ENLn yShcNW4deBOpLDvdRf1plVyjdBuz BC3gGVQindfkYHLvhK8cROOmbPIs kYnnOJ6gHALyqhxol415 MrZfUUZ0DMOtoHEpN2JujJ7oUgWs SJPlLUObK6YtkEAhHAtyP360OZhq TqR7GQWxnnVwO5ExVXPu wWsdJbO0s8N8Dm1kKA2nOZ7rFON5 XT87EU80aKSxb7O4dMK2L4MkFMGu ditzbdvxlIQ1BBWsUOSk pM96hJVeLUjwUu7mz9J7g332FJNb QVLeiY40Dw6dlUxjTUYeiSRBkL0d rduth3hxwglkGqPkBCYe FXb0MRk0YKNriIohLuMdMGM3WvF0 MMD3gRYelG5rxIicxgyidG9lBae+ NycvAIOoitC0Z9CkOdb1 BPDvdRewWU0qoQAmYRveYj8gdMcq uGbhOA7gXHVeopziZDIkzI1zJDDy sUItyTbkLU9rFKSnevgt f787KrYeZRW8ICMpyFMoQ3XvmF4m CzEvIPPqCCExB9WgpZXxUGdgH648 FVuyBfS1YPEvskMiI2Vu VZLicBszVqF3t9X3Iw1MAR4AWVP3 J7HjSlk6LYRgnJszWF9vuMDcCJah Wv0yxOpthKyhGZ4aUZLi kowfNVQxmS8bAMOxkDHrjKxfIA8u KIDgnfzvh903NgIjCGI5BCDaqUDy O9QooD6tRgKrTHOdGFKb J7DcxMWaJXkzD812KSqwOeM4UTKy yqDrC8LjQPLziVwsWgL1x0G9Tj0J UDwvdGQ+NW10jk08N5Xr WenzNya0WAMaWVO1jES8wM5uJHFo KTffm4H9qYB4J2WlbaZkhh4nq5ad VZOvNGtvN76doQTex0B7 KWPbxMW9ZVFmxPgkOvBviP30Teg+ RBOtaSkhc7CkDafss4fci6sqhFb6 IjMwJSIgdmFsaWduPSJ0 s4GlKj77F47sMEjiZXSvFEJpWXVx AHLkuLsfte1yiO0uTj1+PGNvbCB3 hFB9kM3hBnLbQdP6KLfp G546ZvFfgRKmGvllk7tbf3trnIk2 FhKfMMJmseBcmFiiAOT0c3ZmUz17 E0JfcQymg3ZkXnf1el21 hYJdm9L5uZR5K3BpSLMdgdvdgYBl qJheLA5yYUBahodnBWJhiF4nSNHg S1a2VjMpTmQ1FDksS4Bv bpP2JXIpoCGwRAFjgFOSmF4mcnxd a0bxahlaOtCkTMCvXKp2VJv1RNRg uLorUcGtCNF2JtR7TAP0 qOExoE8fnZkrhtzcdO0nJpy+UGh5 m0mijYVuYT9lrXA6QL42DS25tYBo d7J0qKR6O3YzNXKwldxp jxeksFD9WARdACNvdF28Ed9wzEdr Oo9uFINsOQK0UGIaeLHaP3YwfZ9o VhVkPEJcWYNnK0LhpEKw PSfuT357UCccTkP5OIHzmxHjN4Ny RXYdfNtdTdV8q4D4Lb5TUV71RF63 EM58gBCye6J9jFC9O7Ku HJTucajuvwikhDN9VVLnULQydP73 Ls7abCdmVa5rWBBqCXZ8XLTacQCh S7NxwH7lIaPdLGWbSYHy D9OpgDTfOVotU664DQqbKlQ8JLPw ttZgH9QjXDLkbTyaUeJ5k5X2Xb1P Hk85IZ05OM01eWGgq2R2 bFH4A2MwQONawjtiuoxghRO1NPLt ZJMtiP21Rm1ocDszOg1uTVUnGKO9 SYCylSJpM6FkeY0mEnGc HXIkHZJrK8DdlNUePRfqA583VZih WpK5ZYUyacQeI0GkNUSlcBrbVkI1 w0M9Wq2ISGwjhlp8Z3Qa PjwvdHI+GW14ZOHdPT28qYGcnNKc m2medYj6BnTnCCNqFSF4aDdjCZme o5DdPSEiY93dbEHaa4X2 IGN (more content not included)... Normal [facility] MR head/brain wo/w conon MR head/brain wo/w con [facility] [place] [address] MRI Report Signed Patient: Flaquita Robertson MR#: [id number] 47 : 1955 Acct:[id number] Age/Sex: 67 / F ADM Date: 03/30/23 Loc: Room: Type: [facility] Attending Dr: Ashu Goff OD Copies to: Ahsu Goff OD Ordering Provider: Ashu Goff OD Date of Service: 03/30/23 MR/MR head/brain wo/w con: H57.11 ([id number]) MR/MR orbit wo/w con: H57.11 MR orbit [...] Diaz Quintero M.D.03/31/2023 9:24 AM Dictation Location: [place] [address] Transcribed By: [facility] 03/31/23923 Dictated By: Diaz Quintero II, MD 03/31/23903 Signed By: 03/31/23923 [facility] .Auto Diff 03-30-2023 Auto Gage % 9 % Normal 05-07 [facility] 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: Performed By: #### 1 [id number], [id number], 3373421800, 51130800, 6820697, 5854708 ####[facility] (DEFAULT)[address] [place] [address] Baso Abs# 0.0 x10 Normal 0.0-0.2 [facility] 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: Performed By: #### 1 6584622, 1873885302, 3026720455, 89131923, 4413418, 9392908 ####[facility] (DEFAULT)[address] [place] [address] Basophils/100 WBC (Bld) 0.9 % Normal 0.2-2.0 [facility] 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: Performed By: #### 1 9495086, 9876219465, 8246192134, 67080626, 3150114, 8158000 ####[facility] (DEFAULT)[address] [place] [address]479 Eos Abs# 0.1 x10 Normal 0.0-0.4 [facility] 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: Performed By: #### 1 4965694, 4538335677, 4821293594, 26478631, 5734363, 4786279 ####[facility] (DEFAULT)[address] [place] [address] Eosinophils/100 WBC (Bld) 1.8 % Normal 0.9-4.0 [facility] 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: Performed By: #### 1 8083941, 6816909903, 9090169208, 29629930, 2111096, 7018995 ####[facility] (DEFAULT)[address] [place] [address] 61996 Lymph Abs# 1.8 x10 Normal 1.3-2.9 [facility] 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: Performed By: #### 1 9836927, 0671169337, 5692457751, 78558453, 0548637, 0632146 ####[facility] (DEFAULT)[address] [place] [address] 15111 Lymphocytes/100 WBC (Bld) 33 % Normal 14-48 [facility] 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: Performed By: #### 1 5608964, 2222095723, 4594543870, 35386043, 8737383, 0917158 ####[facility] (DEFAULT)[address] [place] [address] Gage Abs# 0.5 x10 Normal 0.0-0.8 [facility] 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: Performed By: #### 1 2275740, 4408283361, 2374494241, 07614505, 5500799, 0049503 ####[facility] (DEFAULT)[address] [place] [address] Neut Abs# 3.0 x10 Normal 1.5-9.2 [facility] 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: Performed By: #### 1 6062417, 9439669846, 1387865815, 15167167, 5573346, 3012637 ####[facility] (DEFAULT)[address] [place] [address] Neutrophils/100 WBC (Bld) 55 % Normal 44-88 [facility] 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: Performed By: #### 1 2143257, 2021058103, 9332944092, 45174418, 9993065, 9659243 ####[facility] (DEFAULT)[address] [place] [address] CBC w/ Auto Diffon 3 Erythrocyte distribution width (RBC) [Ratio] 13.7 % Normal 11.5-15.0 [facility] 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: Performed By: #### 1 7507986, 9502663611, 7356979525, 43880764, 3338449, 6781748 ####[facility] (DEFAULT)[address] [place] [address] Hematocrit (Bld) [Volume fraction] 43.7 % High 33.7-40.4 [facility] 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: Performed By: #### 1 3398088, 8968225326, 6043275553, 41406846, 9600472, 2999805 ####[facility] (DEFAULT)[address] [place] [address] Hemoglobin (Bld) [Mass/Vol] 14.6 g/dL Normal 11.3-15.9 [facility] 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: Performed By: #### 1 5242213, 5877874388, 1076436315, 71973935, 6559383, 6220976 ####[facility] (DEFAULT)[address] [place] [address] Man Diff? Auto Invalid Interpretation Code [facility] 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: Performed By: #### 1 7592633, 5827349482, 9770809939, 80907349, 7104502, 5514322 ####[facility] (DEFAULT)[address] [place] [address] MCH (RBC) [Entitic mass] 32 pg Normal 24-34 [facility] 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: Performed By: #### 1 6399423, 7306319940, 2347731084, 54265624, 7796034, 2075112 ####[facility] (DEFAULT)[address] [place] [address] 29677 MCHC (RBC) [Mass/Vol] 33 g/dL Normal 26-37 [facility] 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: Performed By: #### 1 9249775, 1721915529, 4688711253, 46016620, 7949982, 9809604 ####[facility] (DEFAULT)[address] [place] [address] MCV (RBC) [Entitic vol] 95 fL Normal 81-100 [facility] 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: Performed By: #### 1 1664159, 5326482172, 3681595980, 08492990, 5208150, 1294728 ####[facility] (DEFAULT)[address] [place] [address] Platelet 305 x10 Normal 138-427 [facility] 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: Performed By: #### 1 5421339, 7290895001, 7109614049, 62492135, 1252890, 0365713 ####[facility] (DEFAULT)[address] [place] [address] Platelet mean volume (Bld) [Entitic vol] 7.8 fL Normal 6.3-10.2 [facility] 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: Performed By: #### 1 5163865, 6095105288, 4243296369, 67697178, 1585886, 6140436 ####[facility] (DEFAULT)[address] [place] [address] RBC 4.62 x10 Normal 3.70-5.30 [facility] 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: Performed By: #### 1 4199854, 2442974371, 4625136593, 64389268, 8306277, 3816381 ####[facility] (DEFAULT)[address] [place] [address] WBC 5.5 x10 Normal 3.5-10.5 [facility] 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: Performed By: #### 1 7343056, 2035659987, 4871156054, 84083902, 8534372, 8670609 ####[facility] (DEFAULT)[address] [place] [address] Standardon 03-30-2023 eGFR Non AA >60 Invalid Interpretation Code [facility] 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: Performed By: #### 1 6427970, 2274790645, 1123343015, 60232711, 9402674, 3807503 ####[facility] (DEFAULT)[address] [place] [address] 57774 eGFR AA >60 Invalid Interpretation Code [facility] 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: Performed By: #### 1 8214305, 1698741934, 9462231888, 31386627, 8998257, 1301444 ####[facility] (DEFAULT)[address] [place] [address] Albumin [Mass/Vol] 4.0 g/dL Normal 3.5-5.0 [facility] 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: Performed By: #### 1 5451713, 3728247868, 3840960670, 86770782, 0850525, 1391769 ####[facility] (DEFAULT)[address] [place] [address] Albumin/Globulin [Mass ratio] 1.1 {ratio} Low 1.4-2.6 [facility] 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: Performed By: #### 1 2657274, 7563281458, 9799968537, 19798240, 9240591, 9340676 ####[facility] (DEFAULT)[address] [place] [address] 11735 Alk Phos 79 IU/L Normal 32-91 [facility] 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: Performed By: #### 1 7168589, 2371222665, 9101569192, 02870015, 4740892, 3290731 ####[facility] (DEFAULT)[address] [place] [address] 82307 ALT [Catalytic activity/Vol] 31.0 U/L Normal 14.0-54.0 [facility] 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: Performed By: #### 1 2741411, 0800777279, 7021187182, 75721647, 8569362, 9621701 ####[facility] (DEFAULT)[address] [place] [address] 74634 Anion gap [Moles/Vol] 9.6 mmol/L Normal 5.0-19.0 [facility] 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: Performed By: #### 1 3426094, 8187514695, 7876308217, 41963073, 5579024, 2934293 ####[facility] (DEFAULT)[address] [place] [address] 82356 AST [Catalytic activity/Vol] 25 U/L Normal 15-41 [facility] 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: Performed By: #### 1 2890647, 7976345841, 2687755739, 65415219, 4636901, 5433216 ####[facility] (DEFAULT)[address] [place] [address] 43374 Bili Total 0.6 mg/dL Normal 0.3-1.2 [facility] 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: Performed By: #### 1 4141653, 4009517260, 3393457347, 77634532, 7920258, 3760132 ####[facility] (DEFAULT)[address] [place] [address] 82468 Calcium [Mass/Vol] 8.9 mg/dL Normal 8.9-10.3 [facility] 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: Performed By: #### 1 6700861, 7185962747, 7050356073, 29016577, 6318816, 1948609 ####[facility] (DEFAULT)[address] [place] [address] 69451 Chloride [Moles/Vol] 109 mmol/L Normal 101-111 [facility] 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: Performed By: #### 1 0914314, 7004951212, 7907930094, 19721488, 6302833, 1740244 ####[facility] (DEFAULT)[address] [place] [address] 14627 CO2 [Moles/Vol] 26 mmol/L Normal 21-32 [facility] 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: Performed By: #### 1 3737529, 4622515697, 5936907444, 95318376, 8464266, 8905155 ####[facility] (DEFAULT)[address] [place] [address] 98147 Creatinine [Mass/Vol] 0.78 mg/dL Normal 0.60-1.30 [facility] 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: Performed By: #### 1 7565848, 4075956607, 8318429147, 63934626, 7639073, 5806718 ####[facility] (DEFAULT)[address] [place] [address] 38415 Globulin (S) [Mass/Vol] 3.5 g/dL Normal 1.5-4.3 [facility] 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: Performed By: #### 1 7115420, 1282961785, 2970195053, 84758294, 9151691, 6164611 ####[facility] (DEFAULT)[address] [place] [address] 78035 Glucose [Mass/Vol] 104.0 mg/dL Normal 74.0-118.0 [facility] 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: Performed By: #### 1 8002493, 9052220017, 2571462981, 43863598, 8766511, 1680646 ####[facility] (DEFAULT)[address] [place] [address] 14248 Osmolality 282 mOsm/L Invalid Interpretation Code [facility] 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: Performed By: #### 1 0780562, 1536903930, 5315018808, 94841208, 9722616, 6921866 ####[facility] (DEFAULT)[address] [place] [address] 33689 Potassium [Moles/Vol] 4.6 mmol/L Normal 3.6-5.1 [facility] 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: Performed By: #### 1 2333718, 3117754823, 0137700570, 57552938, 8611937, 0868807 ####[facility] (DEFAULT)[address] [place] [address] 15134 Protein [Mass/Vol] 7.5 g/dL Normal 6.5-8.1 [facility] 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: Performed By: #### 1 9639401, 1514912072, 1824405869, 13169164, 6580559, 0933565 ####[facility] (DEFAULT)[address] [place] [address] 64465 Sodium [Moles/Vol] 140.0 mmol/L Normal 136.0-144 . 0 [facility] 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: Performed By: #### 1 0788886, 5178964542, 9516825714, 47708383, 4296150, 1987145 ####[facility] (DEFAULT)[address] [place] [address] 85630 Urea nitrogen [Mass/Vol] 18 mg/dL Normal 8-26 [facility] 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: Performed By: #### 1 6567606, 7791600525, 7704839710, 86323947, 4029392, 9118091 ####[facility] (DEFAULT)[address] [place] [address] 38945 Urea nitrogen/Creatinine [Mass ratio] 23.0 mg/mg High 4.6-16.2 [facility] 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: Performed By: #### 1 8789268, 5415325317, 6706331574, 80527638, 9247470, 0087218 ####[facility] (DEFAULT)[address] [place] [address] 42909 CRPon 03-30-2023 CRP 0.5 mg/dL Normal <=0.5 [facility] 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: Performed By: #### 2 163118, 9294002 #### [facility] (DEFAULT) [address] [place] [address] 05318 Creatinine (Bld) [Mass/Vol]O rdered By: Ashu Goff on 03-30-2023 Creatinine [Mass/Vol] 0.7 mg/dL 0.6-1.3 [facility] 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: ER/ESD physician is notified/shown all ISTAT results.Critical values may be confirmed by laboratory testing ifdeemed necessary by ER attending doctor. ISTAT XRay CREon 03-30-2023 Creatinine [Mass/Vol] 0.7 mg/dL Normal 0.6-1.3 [facility] 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: Result Comment: ER/E SD physician is notified/shown all ISTAT results. Critical values may be confirmed by laboratory testing if deemed necessary by ER attending doctor. Performed By: #### I SCRE #### [facility] [address] ISTAT GFR > 60.0 Normal [facility] 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: Result Comment: PERF ORMED BY: [address] [place] [address] PATHOLOGIST [employer]OMOTIVE GENERATOR REPAIRER SONNY CORDERO M.D. Performed By: #### I SCRE #### [facility] [address] Lipid Panel Standardon 03-30 Cholesterol [Mass/Vol] 251.0 mg/dL High 66.0-200.0 [facility] 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: Performed By: #### 1 1618771, 6859782945, 1487771093, 69717590, 3261606, 0931764 ####[facility] (DEFAULT)[address] [place] [address] 37434 Cholesterol in HDL [Mass/Vol] 71 mg/dL Normal 40-71 [facility] 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: Performed By: #### 1 9160282, 1618132109, 5145176984, 80692900, 6908035, 7348835 ####[facility] (DEFAULT)[address] [place] [address] 38280 Cholesterol in LDL [Mass/Vol] 156 mg/dL High 1-100 [facility] 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: Performed By: #### 1 1064483, 8532382178, 0225379360, 89438014, 0705526, 0006636 ####[facility] (DEFAULT)[address] [place] [address] 88776 Cholesterol.total/Ch olesterol in HDL [Mass ratio] 3.5 {ratio} Normal 0.0-4.5 [facility] 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: Performed By: #### 1 9822557, 9267485211, 2511631808, 21236655, 7306705, 3993458 ####[facility] (DEFAULT)[address] [place] [address] 67433 Triglyceride [Mass/Vol] 118.0 mg/dL Normal 0.0-150.0 [facility] 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: Performed By: #### 1 5376959, 4763297320, 6753534665, 07765992, 4584444, 4405803 ####[facility] (DEFAULT)[address] [place] [address] VLDL. 24 mg/dL Normal 5-40 [facility] 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: Performed By: #### 1 5127149, 6610284029, 3132666026, 80490400, 9186177, 2696640 ####[facility] (DEFAULT)[address] [place] [address] No Panel InformationOrdered By: Ashu Goff on 03-30-2023 Bedside Estimated GFR (eGFR) > 60.0 [facility] Provider Orderson 03-30-2023 Provider Orders [id number] Normal [facility] Reminder Messageson 03-30-20 Reminder Messages - From: NICOLE PETERS DO To: [facility] Clinical Pool ([facility]); Sent: 03/30/2023 12:31:24 EST ! Show up: [...] % (14 - 48) 03/30/2023 10:18 Auto Gage % 9 % (1 - 12) 03/30/2023 10:18 Auto Eos % 1.8 % (0.9 - 4.0) 03/30/2023 10:18 Auto Baso % 0.9 % (0.2 - 2.0) 03/30/2023 10:18 Neut Abs# 3.0 x103/mcL (1.5 - 9.2) 03/30/2023 10:18 Lymph Abs# 1.8 x103/mcL (1.3 - 2.9) 03/30/2023 10:18 Gage Abs# 0.5 x103/mcL (0.0 - 0.8) 03/30/2023 10:18 Eos Abs# 0.1 x103/mcL (0.0 - 0.4) 03/30/2023 10:18 Baso Abs# 0.0 x103/mcL (0.0 - 0.2) Patient called and notified of results. Verbalized understanding. Normal [facility] Sed Rateon 03-30-2023 Sed Rate 11 mm/hr Normal 0-20 [facility] 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: Performed By: #### 2 789781, 1067847 #### [facility] (DEFAULT) [address] [place] [address] 96329 T4, Totalon 03-30-2023 T4 [Mass/Vol] 7.56 ug/dL Normal 6.09-12.23 [facility] 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: Performed By: #### 1 8247223, 9394085098, 6993077096, 52919961, 2820560, 0241461 ####[facility] (DEFAULT)[address] [place] [address] 33687 TSHon 03-30-2023 TSH Qn 2.02 m[IU]/L Normal 0.45-5.33 [facility] 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: Performed By: #### 1 7900907, 2057982180, [id number] ####[facility] (DEFAULT)[address] [place] [id number] Infusion Flowsheeton 023 Infusion Flowsheet 130/79 [facility] [place] [address] DO Work Phone: Infusion Flowsheet 82 1 [facility] [place] [address] DO Work Phone: Infusion Flowsheet 16 1 [facility]fusion [place] [address] DO Work Phone: Infusion Flowsheet 96.8 1 [facility]fusion [place] [address] DO Work Phone: Infusion Flowsheet 95 1 [facility]fusion [place] [address] DO Work Phone: Infusion Flowsheet 300 MG VYEPTI [facility]- [facility]fusion [place] [address] DO Work Phone: Infusion Flowsheet NORMAL SALINE 125 ML [facility] [place] [address] DO Work Phone: Infusion Flowsheet ZERO MEDICATION WASTED [facility] [place] [address] DO Work Phone: Infusion Flowsheet INFUSION COMPLETE. L INE FLUSHED WITH 30 ML NORMAL SALINE [facility] [place] [address] DO Work Phone: Infusion Flowsheet LM [facility]fusion [place] [address] DO Work Phone: Infusion Flowsheet VYEPTI 300 MG [facility] Infusion [place] [address] DO Work Phone: Infusion Flowsheet NORMAL SALINE 100 ML [facility] [place] [address] DO Work Phone: Infusion Flowsheet Infusion Started [facility] [place] [address] DO Work Phone: Infusion Flowsheet 200 ML//HR [facility]fusion [place] [address] DO Work Phone: Infusion Flowsheet PT WITHOUT SIGNS OR SYMPTOMS OF REACTION [facility] [place] [address] DO Work Phone: Infusion Flowsheet LM [facility]fusion [place] [address] DO Work Phone: Nurse Visit (Infusion-Inject ion Services)on 10-28-2022 Nurse Visit (Infusion-Injection Services) Orders-[employer] Medications Administered: Vyepti 100 MG/ML Intravenous Solution Rx By: Zoie Tejeda;For: Migraines; Dose of 300 MG; Intravenous; ROCHELLE = N; Administered by: Bibiana Bower R.N.: 10/28/2022 11:15:00 AM; Last Updated By: Bibiana [...] TABLET DAILY NEEDED. Vitals Vital Signs Recorded: [id number] 11:00AM Mdfmgwyqgau74.8 F Heart Rate86 Nkllqygszbn02 Cfjzghps068, LUE, Sitting Hlunvadfe02, LUE, Sitting O2 Boikfhuqid39, RA Pre-Procedure Checklist Pre-Procedure Checklist Allergies were [...] infusion. Infusion Procedure PT PROVIDED WITH WRITTEN ([employer] PT EDUCATION SHEET) AND VERBAL EDUCATION REGARDING MEDICATION GIVEN. VERIFIED MEDICATION NAME WITH PATIENT AND DISCUSSED REASON FOR USE. BRIEFLY DISCUSSED HOW MEDICATION WORKS AND EDUCATED ON GOAL OF TREATMENT, FREQUENCY OF TREATMENT, ADVERSE RXN'S AND COMMON SIDE EFFECTS TO MONITOR FOR. INSTRUCTED PT TO ASSURE THAT ALL PROVIDERS INCLUDING DENTIS (more content not included)... Normal [employer] [facility] [...] upon patient improvement. Chief Complaint Visit 6 2022 Medicare Please note: Voice to text [...] back pain. She does workout with a operational trainer twice a week and tries to stay [...] leak and has visited several providers including [facility] (more content not included)... Normal [employer] Office Visit ([facility])on 10-22-2022 Follow-up visit Diagnoses/Problems Assessed Other [...] not effective she will consider returning to [facility], though her co-pay is preventatively high [...] been seen by a headache specialist at [facility], who diagnosed her with occipital neuralgia; she stated that she did 5 weeks of PT, and then plateaued ; the PT also attempted dry needling , which she found ineffective; she stated that she will be getting a second opinion with neurology next week; patient also visited a chiropractor in [place] who is a cervical specialist ; she [...] stiff, sharp and deep. Pre-Treatment Pain Level: 08/03. Flaquita presents today for the follow-up chiropractic [...] back pain. She does workout with a operational trainer twice a week and tries to stay [...] visited s (more content not included)... Normal [employer] Office Visit ([facility])on 09-17-2022 Follow-up visit Diagnoses/Problems Assessed Other [...] been seen by a headache specialist at [facility], who diagnosed her with occipital neuralgia; she stated that she did 5 weeks of PT, and then plateaued ; the PT also attempted dry needling , which she found ineffective; she stated that she will be getting a second opinion with neurology next week; patient also visited a chiropractor in [place] who is a cervical specialist ; she [...] Segmental an (more content not included)... Normal [facility] Office Visit (CMT - Chiropra ctic [...] back pain. She does workout with a operational trainer twice a week and tries to stay [...] in February 2021. Is under care with [facility] recovery clinic. Had extensive imaging and testing [...] some treatmen (more content not included)... [facility]on 09-01-2022 Follow-up visit Diagnoses/Problems Assessed Other [...] been seen by a headache specialist at [facility], who diagnosed her with occipital neuralgia; she stated that she did 5 weeks of PT, and then plateaued ; the PT also attempted dry needling , which she found ineffective; she stated that she will be getting a second opinion with neurology next week; patient also visited a chiropractor in [place] who is a cervical specialist ; she [...] (V11.8) (Z86.59) (more content not included)... Normal [facility] Infusion Flowsheeton 07-29- 023 Infusion Flowsheet 15 MIN POST INFUSION WAIT TIME COMPLETED. PT WITHOUT ILL S/S. [facility] [place] [address] DO Work Phone: Infusion Flowsheet CQ [facility] [place] [address] DO Work Phone: Infusion Flowsheet 113/74 [facility] [place] [address] DO Work Phone: Infusion Flowsheet 70 1 [facility] [place] [address] DO Work Phone: Infusion Flowsheet 16 1 [facility] [place] [address] DO Work Phone: Infusion Flowsheet 98.2 1 [facility] [place] [address] DO Work Phone: [phone] Infusion Flowsheet 100 1 [facility] [place] [address] DO Work Phone: Infusion Flowsheet VYEPTI 100 MG [facility] [place] [address] DO Work Phone: Infusion Flowsheet NS 100 ML [facility] [place] [address] DO Work Phone: Infusion Flowsheet Infusion Stopped [facility] [place] [address] DO Work Phone: Infusion Flowsheet ZERO [facility] [place] [address] DO Work Phone: [phone] Infusion Flowsheet DENIES ILL S/SX. NS 30 ML FLUSH GIVEN. 15 MIN POST INFUSION WAIT TIME BEGINGS. [facility] [place] [address] DO Work Phone: Infusion Flowsheet VYEPTI 100 MG [facility] [place] [address] DO Work Phone: Infusion Flowsheet NS 100 ML [facility] [place] [address] DO Work Phone: Infusion Flowsheet Infusion Started [facility] [place] [address] DO Work Phone: Infusion Flowsheet 200 ML/HR [facility] [place] [address] DO Work Phone: Infusion Flowsheet DENIES ILL S/S. MIGR YAHAIRA . [facility] [place] [address] DO Work Phone: Nurse Visit (Infusion-Inject ion Services)on 07-29-2022 Nurse Visit (Infusion-Injection Services) Orders-Cook Fish Eggs Medications Administered: Vyepti 100 MG/ML Intravenous Solution Rx By: Zoie Tejeda;For: Migraines; Dose of 100 MG; Intravenous; ROCHELLE = N; Administered by: Rebecca HarringtonN.: 07/29/2022 11:15:00 AM MED SUPPLIED BY [facility]. Reason For Visit PT HERE FOR VYEPTI 100 MG IV INFUSION. Ordered by ZOIE TEJEDA MD. FLAQUITA ROBERTSON accompanied by: SELF. Patient is here [...] TABLET DAILY NEEDED. Vitals Vital Signs Recorded: [id number] 11:00AM Cajmgsblslm68.9 F Heart Rate79 Zaopuuduztp24 Lpfuxixv845 Weaoknpcy42 Cbeygr295 lb 11.79 oz BMI Owmroecrbh85.54 kg/m2 BSA Calculated1.75 O2 Kewlutjspj41, RA Pre-Procedure Checklist Pre-Procedure Checklist Allergies were [...] complaint. Infusion Procedure PT PROVIDED WITH WRITTEN ([employer] PT EDUCATION SHEET) AND VERBAL EDUCATION REGARDING [...] IV s (more content not included)... Normal [facility] Office Visit (CMT - Chiropra ctic [...] back pain. She does workout with a operational trainer twice a week and tries to stay [...] content not included)... Normal [facility] Office Visit ([facility])on 07-29-2022 Follow-up visit Diagnoses/Problems Assessed Migraines [...] been seen by a headache specialist at [facility], who diagnosed her with occipital neuralgia; she stated that she did 5 weeks of PT, and then plateaued ; the PT also attempted dry needling , which she found ineffective; she stated that she will be getting a second opinion with neurology next week; patient also visited a chiropractor in [place] who is a cervical specialist ; she [...] heart failure (more content not included)... 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 Based on the patient's subjective complaints along [...] (780.79) (R53.83 (more content not included)... Normal [facility] Office Visit ([facility])on 07-15-2022 Follow-up visit Diagnoses/Problems Assessed Migraines [...] been seen by a headache specialist at [facility], who diagnosed her with occipital neuralgia; she stated that she did 5 weeks of PT, and then plateaued ; the PT also attempted dry needling , which she found ineffective; she stated that she will be getting a second opinion with neurology next week; patient also visited a chiropractor in [place] who is a cervical specialist ; she [...] (Z78.9) Ma (more content not included)... Normal [facility] Office Visit ([facility])on 06-10-2022 Follow-up visit Diagnoses/Problems Assessed Migraines [...] been seen by a headache specialist at 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 Rarely consumes alcohol [...] Complete Blood Count + Differential; Status:Active; Requested for:61Blg0402; Comprehensive Metabolic Panel; Status:Active; Requested for:11Fjp3037; Folate, Serum; Status:Active; Requested for:81Rdn4508; Insulin, Fasting; Status:Active; Requested for:58Gkb2530; TSH WITH REFLEX TO FREE T4 IF ABNORMAL; Status:Active; Requested for:07Cts3155; Vitamin B12, Serum; Status:Active; Requested for:92Xea7014; Low libido, Post-menopausal Sexual Medicine Referral Evaluation and Treatment Evaluate AND Treat Status: Hold For - Scheduling Requested for: 81Dts7878 Vitamin D deficiency Vitamin D 25-Hydroxy; Status:Active; Requested for:55Brm8755; Migraines (346.90) (G43.909) Post-acute sequelae of COVID-19 [...] presents for follow up History of Present Swajcjx8 y/o female with PMH anxiety, depression, migraines, insomnia, PASC presents for follow up. [facility] 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 Lives with . [...] no major impact on fatigue - Sees dog trainer- started pilates, TRX- twice weekly - [...] swelling to (more content not included)... 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 Based on the patient's subjective complaints along [...] of depression (more content not included)... Normal [facility] Office Visit ([facility])on 05-25-2022 Follow-up visit Diagnoses/Problems Assessed Post-acute [...] struggling Patient has been working with a operational trainer; she was using the Pilates reformer which [...] been seen by a headache specialist at 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 Normal [facility] Office Visit (Sleep Medicine )on 05-11-2022 Follow-up [...] DME : Please enroll patient's name in [employer] or [employer] if applicable. Performing Instructions to DME Supplier [...] out of 7 nights per week. Call [facility] at [phone] for any questions or concerns. As a [...] or mask interface, please FIRST contact your [employer] company. [employer]. can be reached at [phone]. For questions concerning your SLEEP CLINIC appointment: Call [phone] . SLEEP LAB [phone] or [phone]. CAUTIONS for New PAP users: 1. You should know the [facility] compliance criteria if you have Medicare or [...] Sites: For patients with ALL SLEEP DISORDERS: [place] [employer] http://sleepeducation.org; or National Sleep Foundation: https://sleepfoundation.org For (more content not included)... Normal [facility] Tobacco Screening.on 023 Fall risk assessment a) No falls within the last year [facility] [address] Work Phone: Tobacco use status CPHS b) No [facility] [address] Work Phone: Office Visit ([facility])on 05-04-2022 Follow-up visit Diagnoses/Problems Assessed Fatigue [...] been seen by a headache specialist at 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 Normal [facility] PT Progress Noteon 3 PT Progress Note No report was sent Normal [facility] PT Progress Note Therapy Diagnosis Assessed Vertigo [...] code time is 40 minutes. Therapeutic exercise (81751): timed minutes 30, units 2 . UBE [...] added Lemperts maneuver to HEP. Manual Therapy (94513): timed minutes 10, units 1 . STM to rigjht Scalenes, Levator, UT suboccipital releases with gentle traction includes vestibular testing . 'Scores and Scales' Signatures Electronically signed by : Manish Kramer, PT; May 04 2022 12:25PM EST (Author) Normal [facility] Office Visit ([facility])on 04-13-2022 Follow-up visit Diagnoses/Problems Assessed Personal [...] pain while she was on vacation in [place]; returning to [place], she is feeling a slight increase in [...] been seen by a headache specialist at [facility], who diagnosed her with occipital neuralgia; she stated that she did 5 weeks of PT, and then plateaued ; the PT also attempted dry needling , which she found ineffective; she stated that she will be getting a second opinion with neurology next week; patient also visited a chiropractor in [place] who is a cervical specialist ; she [...] History of Migraines. Objective Ortho positive Hallpike [place] for right ear horizontal BPPV. added Lemperts maneuver to HEP. Treatment Time in clinic started at 8:30 am Time in clinic ended at 9:15 am Total time in clinic is 45 minutes. Total timed code time is 40 minutes. Therapeutic exercise (72310): timed minutes 25, units 2 . UBE [...] added Lemperts maneuver to HEP. Manual Therapy (12216): timed minutes 15, units 1 . 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 Inocencio Rosado, Neurologist Dr. Wilmer Carrillo and TAMMI Tejeda and Dr. Villalta at [facility], Psychiatry Dr. Tejeda, [facility] PRAVIN Young, Psychology Cristóbal Garcia, Sleep Medicine [...] to energy during the day Meeting with dog trainer twice per week to exercise [place] notices improvement on cognitive abilities Not 100% pain free, still 1-2/10, can still function, that helps with mood and energy levels Still has to pace herself, this is helpful Weather changes seem to affect her symptoms Relevant Hx: -05/2021 ED for headache and panic attack -07/2021 Neurology at 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 Blood work: -06/2021 spinal tap -08/2021 [...] cell carcinoma 2020 Scores and Scales MOCA [id number] 12:46PM IF NO, USE SLUMS EXAM Visuospatial/ Executive (5) Naming (3) I have been Certified to use this cognitive screening instrument, via training on www.mocatest.org.Yes Memory (0)0 Attention: Read List of Digits (2)2 Attention: Read List of Letters (1)1 Attention: Serial Sevens (3)3 Language: Repeat (2)1 Language: Fluency (1)0 Abstraction (2)2 Delayed Recall (5)4 Orientation (6)6 Total Score (30)19 Comments:Modified [place] Active Problems Problems Body aches (780.96) (R52) [...] History of Migraines. Objective Ortho positive Hallpike [place] for right ear BPPV Patient 20 mins late for session today. Treatment Time in clinic started at 9:25 am Time in clinic ended at 10:00 am Total time in clinic is 25 minutes. Total timed code time is 25 minutes. Manual Therapy (41262): timed minutes 25, units 2 . Adelaide's maneuver x 2 for right posterior canal BPPV. 'Scores and Scales' Signatures Electronically signed by : Manish Kramer, PT; Apr 06 2022 12:34PM EST (Author) Normal [facility] Tobacco Screening.on Fall risk assessment a) No falls within the last year [facility] Work Phone: Tobacco use status CPHS b) No [facility] Work Phone: Office Visit ([facility])on 03-11-2022 Follow-up visit Diagnoses/Problems Assessed Migraines [...] been seen by a headache specialist at [facility], who diagnosed her with occipital neuralgia; she stated that she did 5 weeks of PT, and then plateaued ; the PT also attempted dry needling , which she found ineffective; she stated that she will be getting a second opinion with neurology next week; patient also visited a chiropractor in [place] who is a cervical specialist ; she [...] Release 24 (more content not included)... Normal [facility] PT Progress Noteon 2 PT Progress Note [...] UT, Levator, SCM, Suboccipitals, Scalenes. Negative Hallpike [place] for left posterior BPPV. Issued HEP: 3 way pec stretches in the doorway, mid-rows, pull-downs, and shoulder reactive IR and ER isometrics. Treatment Time in clinic started at 8:30 am Time in clinic ended at 9:15 am Total time in clinic is 45 minutes. Total timed code time is 40 minutes. Therapeutic exercise (86819): timed minutes 25, units 2 . Pulleys: [address] pec stretches in door 2 x 30 sec each Midrows: PTT 12 x pulldowns: PTT 12 x Shlds ER / IR resistive Iso: PTT 10 x each each arm R UT stretches: 3 x 30 sec R Levator stretches: 3 x 30 sec. Manual Therapy (96102): timed minutes 15, units 1 . C1 thru C4 FRSR. corrections with METs STM right UT, Levator, SCM, Suboccipitals, Scalenes. 'Scores and Scales' Signatures Electronically signed by : Manish Kramer PT; Mar 11 2022 9:34AM EST (Author) Normal [facility] Office Visit ([facility])on 03-04-2022 Follow-up visit Diagnoses/Problems Assessed Migraines [...] been seen by a headache specialist at [facility], who diagnosed her with occipital neuralgia; she stated that she did 5 weeks of PT, and then plateaued ; the PT also attempted dry needling , which she found ineffective; she stated that she will be getting a second opinion with neurology next week; patient also visited a chiropractor in [place] who is a cervical specialist ; she [...] Tablet daily (more content not included)... Normal [facility] PT Progress Noteon 2 PT Progress [...] UT, Levator, SCM, Suboccipitals, Scalenes. Positive Hallpike [place] for left posterior BPPV. Added right UT stretches to HEP. Treatment Time in clinic started at 8:30 am Time in clinic ended at 9:05 am Total time in clinic is 35 minutes. Total timed code time is 30 minutes. Manual Therapy (17044): timed minutes 30, units 2 . Adelaide's maneuver 2 trials for left BPPV. O/A FSL, C1 thru C4 FRSR. corrections with METs STM right UT, Levator, SCM, Suboccipitals, Scalenes. 'Scores and Scales' Signatures Electronically signed by : Manish Kramer, PT; Mar 04 2022 9:50AM EST (Author) Normal [facility] Psychiatry Adulton 2 Psychiatry Adult Diagnoses/Problems Assessed [...] 03, 2022 at 11am virtual with this designer/writer - May follow up sooner if experiences worsening symptoms by calling Psychiatry at - Patient verbalized an understanding to call [facility] at ([place]), 211, or 911/go to the nearest emergency [...] some weight. She is meeting with a operational trainer once a week and this week she [...] the same (more content not included)... Normal [facility] PT Progress Noteon 2 PT Progress Note No report was sent Normal [facility] Office Visit ([facility])on 02-17-2022 Follow-up visit Diagnoses/Problems Assessed Migraines [...] tomorrow on vacation for 1 week in [place] Initial intake (10/08/2021) Pt came in today [...] been seen by a headache specialist at [facility], who diagnosed her with occipital neuralgia; she stated that she did 5 weeks of PT, and then plateaued ; the PT also attempted dry needling , which she found ineffective; she stated that she will be getting a second opinion with neurology next week; patient also visited a chiropractor in [place] who is a cervical specialist ; she [...] entrance screeni (more content not included)... Normal [facility] Office Visit ([facility])on 02-09-2022 Follow-up visit Diagnoses/Problems Assessed Migraines [...] been seen by a headache specialist at [facility], who diagnosed her with occipital neuralgia; she stated that she did 5 weeks of PT, and then plateaued ; the PT also attempted dry needling , which she found ineffective; she stated that she will be getting a second opinion with neurology next week; patient also visited a chiropractor in [place] who is a cervical specialist ; she [...] screening in (more content not included)... Normal [facility] PT Initial Evaluationon 10- PT Initial [...] diagnosed with COVID. Referred by: Flower Nguyễn, BALANCE WHEEL MOTION INSPECTOR Adult Risk Screening Initial Fall Risk Screening: [...] dizziness and headaches. . Work Status: occupation: [employer]. Current Status: unchanged. Patient Awareness: Patient is aware of her diagnosis and prognosis. Living Environment: multi-story home and stairs with rails. Social Support: lives with spouse. Objective Ortho Forward bend test: veer to right Hallpike-Luis Miguel Down right: upward rotational nystagmus Hallpike[place] Down left: negative Hallpike[place] Up right: horizontal nystagmus to right Hallpike-Luis Miguel Up left: right horizontal nystagmus Head turns [...] left, Nodding (more content not included)... Normal [facility] Office Visit ([facility])on 02-05-2022 Follow-up visit Diagnoses/Problems Assessed Migraines [...] been seen by a headache specialist at [facility], who diagnosed her with occipital neuralgia; she stated that she did 5 weeks of PT, and then plateaued ; the PT also attempted dry needling , which she found ineffective; she stated that she will be getting a second opinion with neurology next week; patient also visited a chiropractor in [place] who is a cervical specialist ; she [...] Capsule Extende (more content not included)... Normal [facility] Chart Updateon 01-27-2022 Chart Update Diagnoses/Problems Vertigo (780.4) (R42) Orders Vertigo Physical Therapy - Vestibular Referral Evaluation and Treatment Evaluate AND Treat Status: Hold For - Scheduling Requested for: 27Jan2022 Ordered;For: Vertigo; Ordered By: Flower Nguyễn Performed: Due: [id number] Chart Update Patient requests referral to PT for vestibular rehab to address vertigo Signatures Electronically signed by : JOSSE Cardona; Jan 27 2022 6:04AM EST (Author) Normal [facility] Office Visit ([facility])on 01-27-2022 Follow-up visit Diagnoses/Problems Assessed Migraines [...] been seen by a headache specialist at [facility], who diagnosed her with occipital neuralgia; she stated that she did 5 weeks of PT, and then plateaued ; the PT also attempted dry needling , which she found ineffective; she stated that she will be getting a second opinion with neurology next week; patient also visited a chiropractor in [place] who is a cervical specialist ; she [...] including te (more content not included)... Normal [facility] Office Visit ([facility])on 01-20-2022 Follow-up visit Diagnoses/Problems Assessed Migraines [...] been seen by a headache specialist at [facility], who diagnosed her with occipital neuralgia; she stated that she did 5 weeks of PT, and then plateaued ; the PT also attempted dry needling , which she found ineffective; she stated that she will be getting a second opinion with neurology next week; patient also visited a chiropractor in [place] who is a cervical specialist ; she [...] R GB4 (more content not included)... Normal [facility] Office Visit (Sleep Medicine )on 01-12-2022 Follow-up visit Diagnoses/Problems Assessed MYRIAM (obstructive sleep apnea) (327.23) (G47.33) Orders MYRIAM (obstructive sleep apnea) Positive Airway Pressure (PAP) Therapy; Status:Active; Requested for:12Jan2022; Perform:(Preferred) [employer]; Due:[id number];Ordered; For:MYRIAM (obstructive sleep apnea); Ordered By:Daniel Jimenez; [...] (E0601) : Yes Order Type : New tapering machine operator, new PAP supplies, and PAP education Length [...] out of 7 nights per week. Call [facility] at [phone] for any questions or concerns. As a [...] or mask interface, please FIRST contact your [employer]. [employer] can be reached at [phone]. For questions concerning your SLEEP CLINIC appointment: Call [phone] . SLEEP LAB [phone] or [phone]. CAUTIONS for New PAP users: 1. You [...] Sites: For patients with ALL SLEEP DISORDERS: [place] Academy [employer] Sleep Medicin (more content not included)... Normal [facility] Tobacco Screening.on 022 Fall risk assessment a) No falls within the last year [facility] Work Phone: Tobacco use status CPHS b) No [facility] Work Phone: Office Visit (Neuro-General) on [...] Signatures Electronically signed by : JOSSE Mir; Dec 17 2021 9:43AM EST (Author) Normal [facility] Office Visit ([facility])on 12-16-2021 Follow-up visit Diagnoses/Problems Assessed Migraines [...] been seen by a headache specialist at [facility], who diagnosed her with occipital neuralgia; she stated that she did 5 weeks of PT, and then plateaued ; the PT also attempted dry needling , which she found ineffective; she stated that she will be getting a second opinion with neurology next week; patient also visited a chiropractor in [place] who is a cervical specialist ; she [...] DAILY NEE (more content not included)... Normal [employer] Office Visit ( [facility])on [...] to follow closely with neurology, Psychiatry, Psychology, [facility], Sleep Medicine, and their recommendations -consider vestibular [...] Thinking Changes after COVID-19 here: [email or web address] We will call you with the results of your tests. Further recommendations will follow based on testing results and your symptoms. Please return to [facility] in 3-6 months, call [phone] if needed. Please also consider attending PICS support group for long-COVID and post-ICU patients. To contact support group, email [email or web address] or call [phone] Chief Complaint FUV: Symptoms are improving , pain has lessened, Adult Risk Screening Spiritual and Cultural: Patient Declined. Initial Fall Risk Screening: FLAQUITA has not fallen in the last 6 months. 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 Inocencio Rosado, Neurologist Dr. Wilmer Carrillo and BALANCE WHEEL MOTION INSPECTOR Theron and Dr. Villalta at [facility], Francisca Taylor, BALANCE WHEEL MOTION INSPECTOR, Psychiatry Dr. Tejeda, [facility] Neela, Psychology Cristóbal Garcia Survey scores: [...] dissipated Rel (more content not included)... Normal [employer] Office Visit ([facility])on 11-18-2021 Follow-up visit Diagnoses/Problems Assessed Migraines [...] been seen by a headache specialist at [facility], who diagnosed her with occipital neuralgia; she stated that she did 5 weeks of PT, and then plateaued ; the PT also attempted dry needling , which she found ineffective; she stated that she will be getting a second opinion with neurology next week; patient also visited a chiropractor in [place] who is a cervical specialist ; she [...] GB41, L SJ5 TDP lamp: feet, 20min [place] in: 15 Needle (more content not included)... Normal [employer] MOCA (Colver Cognitive Ass essment)on 10-06-2021 MOCA (Zander Cognitive Assessment) Yes COVID Recovery [facility] an [address] [place] Work Phone: [phone] MOCA (Colver Cognitive Assessment) 19 1 COVID Recovery [facility] an [address] [place] Work Phone: MOCA (Colver Cognitive Assessment) 6 1 COVID Recovery [facility] an [address] [place] Work Phone: MOCA (Zander Cognitive Assessment) 0 1 COVID Recovery [facility] an [address] [place] Work Phone: [phone] MOCA (Zander Cognitive Assessment) 1 1 COVID Recovery [facility] an [address] [place] Work Phone: [phone] MOCA (Zander Cognitive Assessment) 4 1 COVID Recovery [facility] an [address] [place] Work Phone: MOCA (Zander Cognitive Assessment) Modified [place] COVID Recovery [facility] an [address] [place] Work Phone: MOCA (Zander Cognitive Assessment) 3 1 COVID [facility] an [address] [place] Work Phone: MOCA (Zander Cognitive Assessment) 2 1 COVID Recovery [facility] an [address] [place] Work Phone: CNOVon 08-06-2021 CNOV Office Visit (NHMNS2 ) FLAQUITA ROBERTSON ([id number]) 1955 F Date Time Provider Department 08/06/21 9:30 AM [facility]ALTA [facility] During your visit today, we recorded the following information about you: Pulse Blood pressure Weight Height 91/minute 143/83 74.8 kg 1.524 m Nancy Villalta DO 08/06/2021 10:46 AM Addendum Headache and Facial Pain Section [facility] [address] [place] [address] Referring: SELF PCP: Benito Diaz MD Neurology [...] unable to work - 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 Normal [facility] Nicolas 07-24-2021 CNPN Telephone (NIQ) FLAQUITA ROBERTSON ([id number]) 1955 F Date Time Provider Department 07/24/21 NEUROLOGY PROVIDER NIQ During your visit today, [...] Encounter Status:Closed by JOY KEARNEY on 07/24/21 [facility] CNPNon 07-15-2021 CNPN Telephone (NIQ) FLAQUITA ROBERTSON ([id number]) 1955 F Date Time Provider Department 07/15/21 NEUROLOGY PROVIDER NIQ During your visit today, we recorded the following information about you: Joy Kearney 07/15/2021 4:05 PM Signed OSH NI referral from Dr. Wilmer Carrillo, [facility], [place], [place] DX: intractable headache,migraines, borderline intracranial hypotension RFV: Evaluate and treat Scheduling instructions: Patient can see first available Headache specialist Patient to have CT myelogram spine at [facility] with Dr. Quintero. Outside records will be uploaded to chart in Scanned Docs. Allergies As of Date: 07/15/2021 (Not on File) Date Reviewed: Never Reviewed Reason for Visit: Received Outside Medical Records [[id number]] Cmt: OSH NI referral to Headache AND Facial Pain Problem List As Of Date: 07/15/2021 (None) Encounter Status:Closed by JOY KEARNEY on 07/15/21 [facility] Vital Signs Date Time Vital Sign Value Performing Clinician Facility 05-24-2023 15:01-0500 Body height 152.4 cm Daniel Jimenez DO Work Phone: [facility] 05-24-2023 15:01-0500 Body mass index (BMI) [Ratio] 33.12 kg/m2 Naralberta Zakhary DO Work Phone: [facility] 05-24-2023 15:01-0500 Body weight 76.93 kg Daniel Zhukhary DO Work Phone: [facility] 05-24-2023 15:01-0500 Diastolic blood pressure 95 mm[Hg] Daniel Zakhary DO Work Phone: [facility] 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: had a stressful morning 05-24-2023 15:01-0500 Heart rate 76 /min Daniel Zhukhary DO Work Phone: [facility] 05-24-2023 15:01-0500 Respiratory rate 18 /min Daniel Zakhary DO Work Phone: [facility] 05-24-2023 15:01-0500 SaO2% (BldA) [Mass fraction] 97 % Daniel Jimenez DO Work Phone: [facility] 05-24-2023 15:01-0500 Systolic blood pressure 159 mm[Hg] Daniel Andersonary DO Work Phone: [facility] 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: had a stressful morning 10-28-2022 11:00-0400 Body temperature 98.8 [degF] Inocencio Rosado Work Phone: [facility] [place] [address] DO Work Phone: 10-28-2022 11:00-0400 Diastolic blood pressure 90 mm[Hg] Inocencio Rosado Work Phone: [facility] [place] [address] DO Work Phone: 10-28-2022 11:00-0400 Heart rate 86 /min Inocencio Rosado Work Phone: [facility] [place] [address] DO Work Phone: 10-28-2022 11:00-0400 Respiratory rate 16 /min Inocencio G Cadigan Work Phone: [facility] [address] DO Work Phone: 10-28-2022 11:00-0400 SaO2% (BldA) [Mass fraction] 96 % Inocencio G Ashlee Work Phone: [facility] [address] DO Work Phone: 10-28-2022 11:00-0400 Systolic blood pressure 136 mm[Hg] Inocencio G Ashlee Work Phone: [facility] [address] DO Work Phone: 07-29-2022 11:00-0400 Body mass index (BMI) [Ratio] 33.54 kg/m2 Inocencio G Ashlee Work Phone: [facility] [address] DO Work Phone: 07-29-2022 11:00-0400 Body surface area Derived from formula 1.75 m2 Inocencio Rosado Work Phone: [facility] [address] DO Work Phone: 07-29-2022 11:00-0400 Body temperature 97.9 [degF] Inocencio G Ashlee Work Phone: [facility] [address] DO Work Phone: 07-29-2022 11:00-0400 Body weight 77.9 kg Inocencio G Ashlee Work Phone: [facility] [address] DO Work Phone: 07-29-2022 11:00-0400 Diastolic blood pressure 80 mm[Hg] Inocencio Rosado Work Phone: [facility] [address] DO Work Phone: 07-29-2022 11:00-0400 Heart rate 79 /min Inocencio Rosado Work Phone: [facility] [place] [address] DO Work Phone: 07-29-2022 11:00-0400 Respiratory rate 16 /min Inocencio Gilmore Ashlee Work Phone: [facility] [address] DO Work Phone: 07-29-2022 11:00-0400 SaO2% (BldA) [Mass fraction] 99 % Inocencio Gilmore Ashlee Work Phone: [facility] [place] [address] DO Work Phone: 07-29-2022 11:00-0400 Systolic blood pressure 138 mm[Hg] Inocencio Gilmore Ashlee Work Phone: [facility] [place] [address] DO Work Phone: 05-11-2022 11:19-0500 Body height 152.4 cm Inocencio Gilmore Ashlee Work Phone: [facility] [address]00 Work Phone: 05-11-2022 11:19-0500 Body mass index (BMI) [Ratio] 32.22 kg/m2 Inocencio G Ashlee Work Phone: [facility] [address]00 Work Phone: 05-11-2022 11:19-0500 Body surface area Derived from formula 1.72 m2 Inocencio Mando Ashlee Work Phone: [facility] [address]00 Work Phone: 05-11-2022 11:19-0500 Body weight 74.84 kg Inocencio G Ashlee Work Phone: [facility] Work Phone: 05-11-2022 11:19-0500 Diastolic blood pressure 91 mm[Hg] Inocencio Mando Ashlee Work Phone: [facility] [address]00 Work Phone: 05-11-2022 11:19-0500 Heart rate 80 /min Inocencio Rosado Work Phone: [facility] [facility] Work Phone: 05-11-2022 11:19-0500 Respiratory rate 18 /min Inocencio Rosado Work Phone: [facility] [facility] Work Phone: 05-11-2022 11:19-0500 SaO2% (BldA) [Mass fraction] 98 % Inocencio Rosado Work Phone: [facility] [address]00 Work Phone: 05-11-2022 11:19-0500 Systolic blood pressure 149 mm[Hg] Inocencio Rosado Work Phone: [facility] Work Phone: 05-11-2022 11:19-0500 0 1 Inocencio Rosado Work Phone: [facility] [facility]00 Work Phone: 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: [facility] 04-06-2022 11:45-0500 Body height 152.4 cm Inocencio Rosado [facility]: [facility] Work Phone: 04-06-2022 11:45-0500 Body mass index (BMI) [Ratio] 32.81 kg/m2 Inocencio Rosado Work Phone: [facility] Work Phone: 04-06-2022 11:45-0500 Body surface area Derived from formula 1.73 m2 Inocencio Rosado Work Phone: [facility] Work Phone: 04-06-2022 11:45-0500 Body temperature 96.8 [degF] Inocencio Rosado Work Phone: [facility] Work Phone: 04-06-2022 11:45-0500 Body weight 76.2 kg Inocencio Rosado Work Phone: [facility] Work Phone: 04-06-2022 11:45-0500 Diastolic blood pressure 95 mm[Hg] Inocencio Rosado Work Phone: [facility] Work Phone: 04-06-2022 11:45-0500 Heart rate 77 /min Inocencio Rosado Work Phone: [facility] Work Phone: 04-06-2022 11:45-0500 Respiratory rate 16 /min Inocencio Rosado Work Phone: [facility] Work Phone: 04-06-2022 11:45-0500 SaO2% (BldA) [Mass fraction] 99 % Inocencio Rosado Work Phone: [facility] Work Phone: 04-06-2022 11:45-0500 Systolic blood pressure 139 mm[Hg] Inocencio Rosado Work Phone: [facility] Work Phone: 01-12-2022 11:11-0400 Body mass index (BMI) [Ratio] 32.03 kg/m2 Inocencio Rosado Work Phone: [facility] [address] [place] Work Phone: 01-12-2022 11:11-0400 Body surface area Derived from formula 1.72 m2 Inocencio Rosado Work Phone: [facility] Work Phone: 01-12-2022 11:11-0400 [...] fraction] 97 % Inocencio Rosado Work Phone: [facility] Work Phone: 01-12-2022 11:11-0400 Systolic blood pressure 135 mm[Hg] Inocencio Rosado Work Phone: [facility] Work Phone: 01-12-2022 11:11-0400 0 1 Inocencio Rosado Work Phone: [facility] [address] [place] Work Phone: 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: [facility] 12-15-2021 11:40-0400 Body height 152.4 cm Inocencio Rosado Work Phone: [facility] [address] [place] Work Phone: 12-15-2021 11:40-0400 Body mass index (BMI) [Ratio] 32.03 kg/m2 Inocencio Rosado Work Phone: [facility] [address] [place] Work Phone: 12-15-2021 11:40-0400 Body surface area Derived from formula 1.72 m2 Inocencio Rosado Work Phone: [facility] [address] [place] Work Phone: 12-15-2021 11:40-0400 Body temperature 97.8 [degF] Inocencio G Ashlee [facility] [address] [place] Work Phone: 12-15-2021 11:40-0400 Body weight 74.39 kg Inocencio Rosado Work Phone: [facility] [address] [place] Work Phone: 12-15-2021 11:40-0400 Diastolic blood pressure 89 mm[Hg] Inocencio Rosado Work Phone: [facility] [address] [place] Work Phone: 12-15-2021 11:40-0400 Heart rate 75 /min Inocencio Rosado Work Phone: [facility] [address] [place] Work Phone: 12-15-2021 11:40-0400 SaO2% (BldA) [Mass fraction] 97 % Inocencio Mando Rosado Work Phone: [facility] [address] [place] Work Phone: 12-15-2021 11:40-0400 Systolic blood pressure 136 mm[Hg] Inocencio Rosado Work Phone: [facility] [address] [place] Work Phone: 10-16-2021 15:42-0400 Body height 152.4 cm Referring Provider Unknown [employer] Work Phone: 10-16-2021 15:42-0400 Body mass index (BMI) [Ratio] 32.22 kg/m2 Referring Provider Unknown [employer] Work Phone: 10-16-2021 15:42-0400 Body surface area Derived from formula 1.72 m2 Referring Provider Unknown [employer] [facility] Work Phone: 10-16-2021 15:42-0400 Body weight 74.84 kg Referring Provider Unknown Pune[facility] Work Phone: 10-06-2021 12:49-0400 Body height 152.4 cm Referring Provider Unknown [facility] [address] [place] Work Phone: 10-06-2021 12:49-0400 Body mass index (BMI) [Ratio] 32.22 kg/m2 Referring Provider Unknown [facility] [address] [place] Work Phone: 10-06-2021 12:49-0400 Body surface area Derived from formula 1.72 m2 Referring Provider Unknown [facility] [address] [place] Work Phone: 10-06-2021 12:49-0400 Body temperature 98 [degF] Referring Provider Unknown [facility] [address] [place] Work Phone: 10-06-2021 12:49-0400 Body weight 74.84 kg Referring Provider Unknown [facility] [address] [place] Work Phone: 10-06-2021 12:49-0400 Diastolic blood pressure 87 mm[Hg] Referring Provider Unknown [facility] [address] [place] Work Phone: 10-06-2021 12:49-0400 Heart rate 96 /min Referring Provider Unknown [facility] [address] [place] Work Phone: 10-06-2021 12:49-0400 SaO2% (BldA) [Mass fraction] 99 % Referring Provider Unknown [facility] [address] [place] Work Phone: 10-06-2021 12:49-0400 Systolic blood pressure 126 mm[Hg] Referring Provider Unknown [facility] [address] [place] Work Phone: 08-06-2021 09:10-0400 Body height 152.4 cm Nancy Villalta DO Work Phone: [facility] 08-06-2021 09:10-0400 Body weight 74.84 kg Nancy Villalta DO Work Phone: [facility] 08-06-2021 09:10-0400 Diastolic blood pressure 83 mm[Hg] Nancy Villalta DO Work Phone: [facility] 08-06-2021 09:10-0400 Heart rate 91 /min Nancy Villalta DO Work Phone: [facility] 08-06-2021 09:10-0400 Systolic blood pressure 143 mm[Hg] Nancy Villalta DO Work Phone: [facility] Encounters Encounter Date Encounter Type Care Provider Facility Start: 12-28-2023 End: 12-28-2023 ambulatory NICOLE P FRAN Facility:[facility] Start: 11-10-2023 End: 11-10-2023 ambulatory Patricio Moser Facility:[facility] Start: 10-12-2023 End: 10-12-2023 ambulatory NICOLE P FRAN Facility:[facility] Start: 10-11-2023 End: 10-11-2023 ambulatory NICOLE P HOUSE Facility:[facility] Start: 10-07-2023 End: 10-07-2023 ambulatory NICOLE P HOUSE Facility:[facility] Start: 09-27-2023 End: 09-27-2023 ambulatory NICOLE P HOUSE Facility:[facility] Start: 06-29-2023 End: 06-29-2023 ambulatory DO NICOLE P HOUSE Facility:[facility] Start: 05-24-2023 End: 05-24-2023 Office outpatient visit 15 minutes Daniel Jimenez DO Work Phone: [facility] 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: MYRIAM (obstructive sle ep apnea) (Primary Dx) Start: 05-05-2023 End: 05-05-2023 ambulatory DO NICOLE P FRAN Facility:[facility] Start: 03-30-2023 End: 03-30-2023 ambulatory Ashu Goff Facility:[facility] Start: 03-30-2023 End: 03-30-2023 ambulatory MD Inocencio Rosado Work Phone: [facility] Work Phone: Start: 03-30-2023 End: 03-30-2023 Patient encounter procedure MD Inocencio Rosado Work Phone: [facility] Work Phone: Start: 03-30-2023 End: 03-30-2023 ambulatory Inocencio Rosado MD Facility:[facility] Start: 03-30-2023 End: 03-30-2023 ambulatory Inocencio Rosado MD Facility:[facility] Start: 10-28-2022 Patient encounter procedure Inocencio Rosado Work Phone: [facility] [place] 3[address] DO Work Phone: Start: 10-28-2022 ambulatory Ms. Cosme Dawn randy Tiwari Facility: Start: 10-22-2022 ambulatory Eve Prosak Facility:[id number] Start: 09-24-2022 AUDIT Inocencio Blanchard an Work Phone: RF-Inzrdgysn-Ifixtkzq B 101 Work Phone: Start: 09-23-2022 AUDIT Inocencio Blanchard an Work Phone: EQ-Eqrflkmwi-Ufttdtkz B 101 Work Phone: Start: 09-17-2022 ambulatory Eve Prosak Facility:[id number] Start: 09-01-2022 ambulatory Eve Prosak Facility:[id number] Start: 07-29-2022 ambulatory Ms. Griselda Hammonds [facility] ity:[id number] Start: 07-29-2022 Patient encounter procedure Inocencio Rosado Work Phone: [facility] [place] 6[address] DO Work Phone: Start: 07-29-2022 ambulatory Ms. Cosme Dawn hangjerri Karie Facility: Start: 07-15-2022 Patient encounter procedure Inocencio Rosado Work Phone: [facility] Work Phone: Start: 07-15-2022 ambulatory PAC LISSAHIGINIO YOUNG Facility:[id number] Start: 06-11-2022 AUDIT Inocencio Blanchard an Work Phone: JX-Atwxnftui-Esetlulk B [address] Work Phone: Start: 06-10-2022 TRA, Provider : Griselda Hammonds, Status: Pen, Time: 5:00 PM Inocencio Rosado Work Phone: PG-Lapzzssid-Lfbjzanz B [address] Work Phone: Start: 06-10-2022 FUV, Provider: Lissa Young, Status: Pen, Time: 4:00 PM Inocencio Rosado Work Phone: IN-Qsnffldjk-Hdxodydf B 101 Work Phone: Start: 06-10-2022 Office outpatient vi sit 40 minutes Inocencio Rosado Work Phone: [facility] Work Phone: Start: 06-10-2022 Patient encounter procedure Inocencio Rosado Work Phone: [employer] Work Phone: Start: 06-10-2022 ambulatory Ms. Griselda Hammonds [facility] ity:[id number] Start: 06-10-2022 MERLE, Provider: Xavier Osorio, Status: Pen, Time: 2:20 PM Inocencio Rosado Work Phone: TV-Mvisyoghu-Hwunjwjq B [address] Work Phone: Start: 06-08-2022 AUDIT Inocencio Blanchard an Work Phone: PR-Yivwhieas-Pnnpwtsr B 101 Work Phone: Start: 06-03-2022 Office outpatient vi sit 25 minutes Inocencio Rosado Work Phone: YF-Hvsaaiwny-Tkpngejx B 101 Work Phone: Start: 06-03-2022 ambulatory Zoienavneet Tejeda Facility:9 [id number] Start: 05-29-2022 Office outpatient ne w 30 minutes Inocencio Rosado Work Phone: [facility] Work Phone: Start: 05-29-[address] Xavier Osorio Facility:[id number] Start: 05-25-2022 ambulatory Ms. Griselda Hammonds Facil ity:[id number] Start: 05-11-2022 ambulatory Daniel Jimenez Facilit y:[id number] Start: 05-11-2022 Current tobacco non-user cad cap copd pv dm Inocencio Rosado Work Phone: [facility] 2300 Work Phone: Start: 05-04-2022 ambulatory Ms. Griselda Hammonds Facil ity:[id number] Start: 05-04-2022 ambulatory Ms. Flower Nguyễn Facil ity:[id number] Start: 05-04-2022 Patient encounter procedure Inocencio Rosado [facility]: [facility] Work Phone: Start: 04-13-2022 ambulatory Ms. Griselda Hammonds Facil ity:[id number] Start: 04-13-2022 ambulatory Ms. Flower Nguyễn Facil ity:[id number] Start: 04-13-2022 Patient encounter procedure Inocencio Rosado Work Phone: [facility] Work Phone: Start: 04-06-2022 ambulatory Flower Nguyễn Facility: [facility] Start: 04-06-2022 ambulatory Ms. Flower Nguyễn Facil ity:[id number] Start: 04-06-2022 Patient encounter procedure Inocencio Rosado Work [facility]: [facility] Work Phone: Start: 03-11-2022 ambulatory Ms. Grisleda Hammonds Facil ity:[id number] Start: 03-11-2022 ambulatory Ms. Flower Nguyễn Facil ity:[id number] Start: 03-11-2022 Patient encounter procedure Inocencio Rosado Work Phone: [facility] Work Phone: Start: 03-04-2022 TRA, Provider : Griselda Hammonds, Status: Pen, Time: 11:00 AM Inocencio Rosado Work Phone: [facility] [address] [place] Work Phone: Start: 03-04-2022 ambulatory Ms. Griselda Hammonds Facil ity:[id number] Start: 03-04-2022 Patient encounter procedure Inocencio Rosado Work Phone: [facility] Work Phone: Start: 03-04-2022 PTFUADULT4, Provider : Manish Kramer, Status: Pen, Time: 8:30 AM Inocencio Rosado Work Phone: [facility] [address] [place] Work Phone: Start: 03-04-2022 ambulatory Ms. Flower Castillo ity:[id number] Start: 03-02-2022 Office outpatient vi sit 15 minutes Inocencio Rosado Work Phone: [facility] [address] [place] Work Phone: Start: 02-18-2022 ambulatory Ms. Flower Castillo ity:[id number] Start: 02-18-2022 PTFUADULT4, Provider : Manish Kramer, Status: Pen, Time: 9:15 AM Inocencio Rosado Work Phone: [facility] Work Phone: Start: 02-17-2022 ambulatory Ms. Griselda Hammonds Facil ity:[id number] Start: 02-17-2022 Patient encounter procedure Inocencio Rosado Work Phone: [facility] Work Phone: Start: 02-09-2022 Patient encounter procedure Inocencio Rosado Work Phone: [facility] Work Phone: Start: 02-09-2022 ambulatory Ms. Griselda Hammonds Facil ity:[id number] Start: 02-09-2022 Patient encounter procedure [facility]ocencio Rosado [facility] Work Phone: Start: 02-09-2022 ambulatory Ms. Flower Nguyễn Facil ity:[id number] Start: 02-05-2022 ambulatory Ms. Griselda Hammonds Facil ity:[id number] Start: 01-27-2022 AUDIT Inocencio Blanchard an Work Phone: [facility] Work Phone: Start: 01-27-2022 ambulatory Ms. Griselda Hammonds Facil ity:[id number] Start: 01-20-2022 Patient encounter procedure Inocencio Rosado Work Phone: [facility] Work Phone: Start: 01-20-2022 ambulatory Ms. Griselda Hammonds Facil ity:[id number] Start: 01-13-2022 Rx Renewal Inocencio Blanchard marco Work Phone: [facility]zzp[facility]Jvvqoh [facility] Work Phone: Start: 01-12-2022 Current tobacco non-user cad cap copd pv dm Inocencio Rosado Work Phone: [facility] [place] Work Phone: Start: 01-12-2022 ambulatory Nardine Barbara Facilit y:[id number] Start: 12-17-2021 RICK, Provider : Zoie Tejeda, Status: Pen, Time: 9:30 AM Inocencio Rosado Work Phone: [facility] [address] [place] Work Phone: Start: 12-17-2021 ambulatory Zoie Tejeda Facility:[id number] [phone] Start: 12-16-2021 ambulatory Ms. Griselda Hammonds Facil ity:[id number] Start: 12-16-2021 WILLEMUNC, Provider : Griselda Hammonds, Status: Pen, Time: 10:30 AM Inocencio Rosado Work Phone: [facility] [address] [place] Work Phone: Start: 12-16-2021 Patient encounter procedure Inocencio Rosado Work Phone: Puneet Ross [facility] Work Phone: Start: 12-15-2021 Patient encounter procedure Inocencio Rosado Work Phone: [facility] 130 [place] Work Phone: Start: 12-15-2021 ambulatory Flower Nguyễn Facility: [facility] Start: 11-21-[address] Aundrea Calderon Facility: Start: 11-18-2021 ambulatory Ms. Griselda Hammonds Facil ity:[id number] Start: 11-18-2021 Patient encounter procedure Inocencio Rosado Work Phone: Puneet Ross [facility] Work Phone: Start: 11-12-2021 Patient encounter procedure Inocencio Rosado Work Phone: Puneet Ross [facility] Work Phone: Start: 11-12-2021 ambulatory [facility] Facility:[facility] Start: 11-04-2021 ambulatory Ms. Griselda Hammonds Facil ity:[id number] Start: 11-04-2021 Patient encounter procedure Inocencio Rosado Work Phone: [facility] [address] [place] Work Phone: Start: 11-04-2021 ambulatory [employer] INSPECTOR LOKESH JANAKELISEO Facil ity: Start: 10-24-2021 Office outpatient ne w 60 minutes Referring Provider Unknown [facility] Work Phone: Start: 10-24-2021 Telephone encounter Referring Provider Unknown [facility] [address] [place] Work Phone: Start: 10-17-2021 Patient encounter procedure Referring Provider Unknown [facility] 130 [place] Work Phone: Start: 10-16-2021 VIRNPVKIARRA, Provider : Joana Tejeda, Status: Pen, Time: 3:00 PM Referring Provider Unknown WQ-Alxhgkhgc-Dngykkap B 101 Work Phone: Start: 10-16-2021 FUVACUPUNC, Provider : Griselda Hammonds, Status: Pen, Time: 11:30 AM Referring Provider Unknown XW-Jcqowvyst-Rpbaaxau B 101 Work Phone: Start: 10-15-2021 Office outpatient ne w 45 minutes Referring Provider Unknown WV-Sxvzuvxkc-Lmvkqsfq B 101 Work Phone: Start: 10-08-2021 AUDIT Referring Prov ider Unknown -[facility] 3100 Work Phone: Start: 10-08-2021 NPVACUPUNC, Provider : Griselda Hammonds, Status: Pen, Time: 1:00 PM Referring Provider Unknown [facility] [address] [place] Work Phone: Start: 10-08-2021 Patient encounter procedure Referring Provider Unknown [facility] Work Phone: Start: 10-06-2021 Patient encounter procedure Referring Provider Unknown [facility] 130 [place] Work Phone: Start: 10-06-2021 ambulatory PCP UNKNOWN Facility:[facility] Start: 09-19-2021 Orders Only Nancy Wetzel [...] 04-07-2031 Screening for malignant neoplasm of colon [facility] Start: 11-18-2025 DTaP/Tdap/Td Vaccines (2 - Td or Tdap) DTaP/Tdap/Td Vaccines (2 - Td or Tdap) [facility] Start: 07-30-2023 End: 07-30-2023 ambulatory 07/30/2023 11:[address] [facility] [address] [place] [address] [facility] Start: 05-10-2023 FUV, Provider: Daniel Jimenez, Status: Pen, Time: 11:00 AM FUV, Provider: Daniel Jimenez, Status: Pen, Time: 11:00 AM MG-P[facility] 2300 Work Phone: Start: 03-30-2023 MR Orbit WO and W contrast IV [facility] Start: 03-30-2023 MRI of orbit with contrast MR orbit wo/w con [facility] Start: 03-30-2023 MR Unspecified body region [facility] Start: 03-30-2023 MRI of head MR head/brain wo/w [facility] Start: 01-28-2023 [id number], Provider: Vivienne HULL INFUSION ROOM [id number], Status: Pen, Time: 11:00 AM [id number], Provider: Vivienne HULL INFUSION ROOM 01,[id number], Status: Pen, Time: 11:00 AM MG-Ambulatory Infusion [facility] [address] DO Work Phone: Start: 12-25-2022 COVID-19 Vaccine () COVID-19 Vaccine () [facility] Start: 11-12-2022 FUVACUPUNC, Provider: Griselda Hammonds, Status: Pen, Time: 11:00 AM FUVACUPUNC, Provider: Griselda Hammonds, Status: Pen, Time: 11:00 AM JN-Kwtgamrwi-Obvuxuzu B 101 Work Phone: Start: 11-12-2022 FUVCHIRO, Provider: Eve Mccollum, Status: Pen, Time: 10:40 AM FUVCHIRO, Provider: Eve Mccollum, Status: Pen, Time: 10:40 AM QK-Uxkclrfim-Rjojazch B 101 Work Phone: Start: 10-28-2022 [id number], Provider: Vivienne HULL INFUSION ROOM [id number], Status: Pen, Time: 11:00 AM [id number], Provider: Vivienne HULL INFUSION ROOM 04,[id number], Status: Pen, Time: 11:00 AM MG-Ambulatory Infusion Center-[facility] [address] [place] Work Phone: Start: 10-22-2022 FUVACUPUNC, Provider: Griselda Hammonds, Status: Pen, Time: 11:30 AM FUVACUPUNC, Provider: Griselda Hammonds, Status: Pen, Time: 11:30 AM TN-Lcldhcdmw-Diaifrzo B 101 Work Phone: Start: 10-22-2022 FUVCHIRO, Provider: Eve Mccollum, Status: Pen, Time: 11:00 AM FUVCHIRO, Provider: Eve Mccollum, Status: Pen, Time: 11:00 AM AQ-Piuqapntb-Wkrtntgx B 101 Work Phone: Start: 10-01-2022 FUVACUPUNC, Provider: Griselda Hammonds, Status: Pen, Time: 11:00 AM FUVACUPUNC, Provider: Griselda Hammonds, Status: Pen, Time: 11:00 AM [facility] Work Phone: Start: 10-01-2022 FUVCHIRO, Provider: Eve Mccollum, Status: Pen, Time: 10:20 AM FUVCHIRO, Provider: Eve Mccollum, Status: Pen, Time: 10:20 AM [facility] Work Phone: Start: 09-17-2022 FUVACUPUNC, Provider: Griselda Hammonds, Status: Pen, Time: 11:00 AM FUVACUPUNC, Provider: Griselda Hammonds, Status: Pen, Time: 11:00 AM [facility] Work Phone: Start: 09-17-2022 FUVCHIRO, Provider: Eve Mccollum, Status: Pen, Time: 10:20 AM FUVCHIRO, Provider: Eve Mccollum, Status: Pen, Time: 10:20 AM [facility] Work Phone: Start: 09-01-2022 FUVACUPUNC, Provider: Griselda Hammonds, Status: Pen, Time: 12:00 PM FUVACUPUNC, Provider: Griselda Hammonds, Status: Pen, Time: 12:00 PM [facility] Work Phone: Start: 09-01-2022 FUVCHIRO, Provider: Eve Mccollum, Status: Pen, Time: 11:40 AM FUVCHIRO, Provider: Eve Mccollum, Status: Pen, Time: 11:40 AM Kuaidi Dache Phone: Start: 08-20-2022 FUVACUPUNC, Provider: Griselda Hammonds, Status: Pen, Time: 2:00 PM FUVACUPUNC, Provider: Griselda Hammonds, Status: Pen, Time: 2:00 PM Kua[facility] Dache Phone: Start: 08-20-2022 FUVCHIRO, Provider: Eve Mccollum, Status: Pen, Time: 1:40 PM FUVCHIRO, Provider: Eve Mccollum, Status: Pen, Time: 1:40 PM Kuaidi Dache Phone: Start: 07-30-2022 Adult depression screening assessment DEPRESSION SCREENING [facility] Start: 07-29-2022 FUVACUPUNC, Provider: Griselda Hammonds, Status: Pen, Time: 3:00 PM FUVACUPUNC, Provider: Griselda Hammonds, Status: Pen, Time: 3:00 PM Kuaidi Dache Phone: Start: 07-29-2022 FUVCHIRO, Provider: Eve Mccollum, Status: Pen, Time: 2:20 PM FUVCHIRO, Provider: Eve Mccollum, Status: Pen, Time: 2:20 PM K[facility] Dache Phone: Start: 07-15-2022 FUVACUPUNC, Provider: Griselda Hammonds, Status: Pen, Time: 12:30 PM FUVACUPUNC, Provider: Griselda Hammonds, Status: Pen, Time: 12:30 PM Kuaidi Dache Phone: Start: 07-15-2022 FUVCHIRO, Provider: Xavier Osorio, Status: Pen, Time: 12:00 PM FUVCHIRO, Provider: Xavier Osorio, Status: Pen, Time: 12:00 PM [facility] Work Phone: Start: 07-03-2022 FUVCHIRO, Provider: Xavier Osorio, Status: Pen, Time: 2:20 PM FUVCHIRO, Provider: Xavier Osorio, Status: Pen, Time: 2:20 PM [facility] [address] Work Phone: Start: 07-01-2022 FUVACUPUNC, Provider: Griselda Hammonds, Status: Pen, Time: 3:00 PM FUVACUPUNC, Provider: Griselda Hammonds, Status: Pen, Time: 3:00 PM [facility] Work Phone: Start: 07-01-2022 FUVCHIRO, Provider: Xavier Osorio, Status: Pen, Time: 2:40 PM FUVCHIRO, Provider: Xavier Osorio, Status: Pen, Time: 2:40 PM [facility] Work Phone: Start: 06-10-2022 FUVACUPUNC, Provider: Griselda Hammonds, Status: Pen, Time: 5:00 PM FUVACUPUNC, Provider: Griselda Hammonds, Status: Pen, Time: 5:00 PM [facility] Work Phone: Start: 06-10-2022 FUV, Provider: Lissa Young, Status: Pen, Time: 4:00 PM FUV, Provider: Lissa Young, Status: Pen, Time: 4:00 PM [facility] Work Phone: Start: 06-10-2022 FUVCHIRO, Provider: Xavier Osorio, Status: Pen, Time: 2:20 PM FUVCHIRO, Provider: Xavier Osorio, Status: Pen, Time: 2:20 PM [facility] Work Phone: Start: 06-03-2022 RICK, Provider: Joy,Joana, Status: Pen, Time: 11:00 AM VIRFUVHOME, Provider: Joana Tejeda, Status: Pen, Time: 11:[address] Work Phone: Start: 06-03-2022 VIRFUVHOME, Provider: Zoie Tejeda, Status: Pen, Time: 9:30 AM VIRFUVHOME, Provider: Zoie Tejeda, Status: Pen, Time: 9:30 AM [facility] Work Phone: Start: 05-25-2022 FUVACUPUNC, Provider: Griselda Hammonds, Status: Pen, Time: 11:00 AM FUVACUPUNC, Provider: Griselda Hammonds, Status: Pen, Time: 11:00 AM [facility] Work Phone: Start: 05-11-2022 FUV, Provider: Daniel Jimenez, Status: Pen, Time: 11:00 AM FUV, Provider: Daniel Jimenez, Status: Pen, Time: 11:00 AM -Pulmonary Medicine[address] Work Phone: Start: 05-04-2022 FUVACUPUNC, Provider: Griselda Hammonds, Status: Pen, Time: 12:00 PM FUVACUPUNC, Provider: Griselda Hammonds, Status: Pen, Time: 12:00 PM [facility] Work Phone: Start: 05-04-2022 PTFUADULT4, Provider: Manish Kramer, Status: Pen, Time: 9:15 AM PTFUADULT4, Provider: Manish Kramer, Status: Pen, Time: 9:15 AM [facility] Work Phone: Start: 04-22-2022 PTFUADULT4, Provider: Manish Kramer, Status: Pen, Time: 8:30 AM PTFUADULT4, Provider: Manish Kramer, Status: Pen, Time: 8:30 AM [facility] Work Phone: Start: 04-13-2022 FUVACUPUNC, Provider: Griselda Hammonds, Status: Pen, Time: 11:00 AM FUVACUPUNC, Provider: Griselda Hammonds, Status: Pen, Time: 11:00 AM [facility] Work Phone: Start: 04-13-2022 PTFUADULT4, Provider: Manish Kramer, Status: Pen, Time: 8:30 AM PTFUADULT4, Provider: Manish Kramer, Status: Pen, Time: 8:30 AM [facility] Work Phone: Start: 04-06-2022 Patient encounter procedure FUVCOVID, Provider: [facility],[id number], Status: Pen, Time: 11:30 AM COVID [address] Work Phone: Start: 04-06-2022 PTFUADULT4, Provider: Manish Kramer, Status: Pen, Time: 9:15 AM PTFUADULT4, Provider: Manish Kramer, Status: Pen, Time: 9:15 AM [facility] Work Phone: Start: 04-01-2022 PTFUADULT4, Provider: Manish Kramer, Status: Pen, Time: 2:00 PM PTFUADULT4, Provider: Manish Kramer, Status: Pen, Time: 2:00 PM [facility] Work Phone: Start: 04-01-2022 FUVACUPUNC, Provider: Griselda Hammonds, Status: Pen, Time: 10:30 AM FUVACUPUNC, Provider: Griselda Hammonds, Status: Pen, Time: 10:30 AM [facility] Work Phone: Start: 04-01-2022 PTFUADULT4, Provider: Manish Kramer, Status: Pen, Time: 8:30 AM PTFUADULT4, Provider: Manish Kramer, Status: Pen, Time: 8:30 AM [facility] Work Phone: Start: 03-11-2022 FUVACUPUNC, Provider: Griselda Hammonds, Status: Pen, Time: 11:00 AM FUVACUPUNC, Provider: Griselda Hammonds, Status: Pen, Time: 11:00 AM Rehab [facility] Work Phone: Start: 03-11-2022 PTFUADULT4, Provider: Manish Kramer, Status: Pen, Time: 8:30 AM PTFUADULT4, Provider: Manish Kramer, Status: Pen, Time: 8:30 AM [facility] Work Phone: Start: 03-05-2022 FUVACUPUNC, Provider: Griselda Hammonds, Status: Pen, Time: 11:00 AM FUVACUPUNC, Provider: Griselda Hammonds, Status: Pen, Time: 11:00 AM [facility] Work Phone: Start: 03-04-2022 FUVACUPUNC, Provider: Griselda Hammonds, Status: Pen, Time: 11:00 AM FUVACUPUNC, Provider: Griselda Hammonds, Status: Pen, Time: 11:00 AM Rehab [facility] Work Phone: Start: 03-04-2022 PTFUADULT4, Provider: Manish Kramer, Status: Pen, Time: 8:30 AM PTFUADULT4, Provider: Manish Kramer, Status: Pen, Time: 8:30 AM Rehab [facility] Work Phone: Start: 03-02-2022 VIRFUVHOME, Provider: Joana Tejeda, Status: Pen, Time: 9:30 AM VIRFUVHOME, Provider: Joana Tejeda, Status: Pen, Time: 9:[address] Work Phone: Start: 10-25-2022 FUVACUPUNC, Provider: Griselda Hammonds, Status: Pen, Time: 11:00 AM FUVACUPUNC, Provider: Griselda Hammonds, Status: Pen, Time: 11:00 AM [facility] Work Phone: Start: 02-10-2022 FUVACUPUNC, Provider: Griselda Hammonds, Status: Pen, Time: 2:30 PM FUVACUPUNC, Provider: Griselda Hammonds, Status: Pen, Time: 2:30 PM [facility] Work Phone: Start: 02-09-2022 PTEVAADULT, Provider: Manish Kramer, Status: Pen, Time: 9:15 AM PTEVAADULT, Provider: Manish Kramer, Status: Pen, Time: 9:15 AM [facility] Work Phone: Start: 02-05-2022 FUVACUPUNC, Provider: Griselda Hammonds, Status: Pen, Time: 10:30 AM FUVACUPUNC, Provider: Griselda Hammonds, Status: Pen, Time: 10:30 AM [facility] Work Phone: Start: 01-27-2022 FUVACUPUNC, Provider: Griselda Hammonds, Status: Pen, Time: 10:30 AM FUVACUPUNC, Provider: Griselda Hammonds, Status: Pen, Time: 10:30 AM [facility] Work Phone: Start: 01-20-2022 FUVACUPUNC, Provider: Griselda Hammonds, Status: Pen, Time: 3:00 PM FUVACUPUNC, Provider: Griselda Hammonds, Status: Pen, Time: 3:00 PM [facility] Work Phone: Start: 01-12-2022 NPV, Provider: Daniel Jimenez, Status: Pen, Time: 11:00 AM NPV, Provider: Daniel Jimenez, Status: Pen, Time: 11:00 AM [facility] 250 DO Work Phone: Start: 12-24-2021 VIRFUVHOME, Provider: Joana Tejeda, Status: Pen, Time: 8:00 AM VIRFUVHOME, Provider: Joana Tejeda, Status: Pen, Time: 8:00 AM [facility] Work Phone: Start: 12-17-2021 VIRFUVHOME, Provider: Zoie Tejeda, Status: Pen, Time: 9:30 AM VIRFUVHOME, Provider: Zoie Tejeda, Status: Pen, Time: 9:30 AM FH-Qdydicmpz-Udkmyhwu B 101 Work Phone: Start: 12-16-2021 FUVACUPUNC, Provider: Griselda Hammonds, Status: Pen, Time: 10:30 AM FUVACUPUNC, Provider: Griselda Hammonds, Status: Pen, Time: 10:30 AM [facility] Work Phone: Start: 12-15-2021 Patient encounter procedure FUVCOVID, Provider[id number] [facility],[id number], Status: Pen, Time: 11:30 AM [facility] 130 [place] Work Phone: Start: 12-11-2021 NPV, Provider: Daniel Jimenez, Status: Pen, Time: 11:30 AM NPV, Provider: Daniel Jimenez, Status: Pen, Time: 11:30 AM [facility] Work Phone: Start: 12-02-2021 FUVACUPUNC, Provider: Griselda Hammonds, Status: Pen, Time: 10:30 AM FUVACUPUNC, Provider: Griselda Hammonds, Status: Pen, Time: 10:30 AM [facility] Work Phone: Start: 11-25-2021 FUVACUPUNC, Provider: Griselda Hammonds, Status: Pen, Time: 10:00 AM FUVACUPUNC, Provider: Griselda Hammonds, Status: Pen, Time: 10:00 AM [facility] Work Phone: Start: 11-18-2021 FUVACUPUNC, Provider: Griselda Hammonds, Status: Pen, Time: 10:30 AM FUVACUPUNC, Provider: Griselda Hammonds, Status: Pen, Time: 10:30 AM MG-Pulm [facility] 3100 Work Phone: Start: 11-12-2021 VIRFUVHOME, Provider: Joana Tejeda, Status: Pen, Time: 3:30 PM VIRFUVHOME, Provider: Joana Tejeda, Status: Pen, Time: 3:30 PM [facility] Work Phone: Start: 11-12-2021 FUVACUPUNC, Provider: Yakelin Acosta, Status: Pen, Time: 10:00 AM FUVACUPUNC, Provider: Yakelin Acosta, Status: Pen, Time: 10:00 AM MG-Pulm [facility] 3100 Work Phone: Start: 11-04-2021 FUVACUPUNC, Provider: Griselda Hammonds, Status: Pen, Time: 1:30 PM FUVACUPUNC, Provider: Griselda Hammonds, Status: Pen, Time: 1:30 PM MG-Pulm [facility] 3100 Work Phone: Start: 11-04-2021 HOLTER MON, Provider: RAINA ROOT TRAY SERVER 1,[id number], Status: Pen, Time: 10:30 AM [facility], Provider: RAINA ROOT TRAY SERVER 1,[id number], Status: Pen, Time: 10:30 AM [facility] [address] [place] Work Phone: Start: 10-24-2021 VIRNPVHOME, Provider: Lissa Young, Status: Pen, Time: 2:00 PM VIRNPVHOME, Provider: Lissa Young, Status: Pen, Time: 2:00 PM [facility] [address] [place] Work Phone: Start: 10-16-2021 VIRNPVPAPIE, Provider: Joana Tejeda, Status: Pen, Time: 3:00 PM VIRARLENEVKIARRA, Provider: Joana Tejeda, Status: Pen, Time: 3:00 PM [facility] Work Phone: Start: 10-16-2021 FUVACUPUNC, Provider: Griselda Hammonds, Status: Pen, Time: 11:30 AM FUVACUPUNC, Provider: Griselda Hammonds, Status: Pen, Time: 11:30 AM MG-Pulm [facility] 3100 Work Phone: Start: 10-14-2021 NPVGENERAL, Provider: Xavier Mai, Status: Pen, Time: 8:30 AM NPVGENERAL, Provider: Xavier Mai, Status: Pen, Time: 8:[address] Work Phone: Start: 04-26-2021 ADVANCE DIRECTIVE DISCUSSION ADVANCE DIRECTIVE DISCUSSION [facility] Start: 02-07-2021 Screening for malignant neoplasm of breast Mammogram [facility] Start: 12-25-2020 Influenza vaccination INFLUENZA (#1) [facility] Start: 11-29-2020 COVID-19 VACCINE (3 - Booster for Pfizer series) COVID-19 VACCINE (3 - Booster for Pfizer series) [facility] Start: 09-13-2020 BONE DENSITY BONE DENSITY [facility] Start: 09-13-2020 PNEUMOCOCCAL: 65+ (1 - PCV) PNEUMOCOCCAL: 65+ (1 - PCV) [facility] Start: 09-13-2020 PNEUMOVAX AGE 65 AND OVER WITH 5YR LOOKBACK (#1) PNEUMOVAX AGE 65 AND OVER WITH 5YR LOOKBACK (#1) [facility] Start: 09-13-2005 SHINGRIX VACCINE (1 of 2) SHINGRIX VACCINE (1 of 2) [facility] Start: 09-13-2005 Zoster Vaccines (1 of 2) Zoster Vaccines (1 of 2) [facility] Start: 09-13-2000 COLOGUARD (FIT-DNA) COLOGUARD (FIT-DNA) [facility] Start: 09-13-2000 Colonoscopy COLONOSCOPY [facility] Start: 09-13-2000 COLORECTAL CANCER SCREENING COLORECTAL CANCER SCREENING [facility] Start: 09-13-[address] COLONOGRAPHY [facility] Start: 09-13-2000 DIABETES SCREEN DIABETES SCREEN [facility] Start: 09-13-2000 FECAL OCCULT BLOOD FECAL OCCULT BLOOD [facility] Start: 09-13-2000 LIPID SCREEN LIPID SCREEN [facility] Start: 09-13-2000 SIGMOIDOSCOPY SIGMOIDOSCOPY [facility] Start: 1995 Mammography MAMMOGRAM [facility] Start: 09-13-1974 Urine microalbumin profile DTAP,TDAP,TD (1 - Tdap) [facility] Start: 09-13-1973 Diabetes mellitus screening Diabetes Screening [facility] Start: 09-13-1973 HEPATITIS C SCREENING HEPATITIS C SCREENING [facility] Start: 09-13-1973 Hepatitis C screening Hepatitis C Screening [facility] Start: 09-13-1973 HIV SCREENING HIV SCREENING [facility] Start: 1967 Adult depression screening assessment DEPRESSION SCREENING [facility] Start: 09-13-1960 COVID-19 VACCINE (1) COVID-19 VACCINE (1) [facility] Start: 1955 Lipid panel Lipid Panel [facility] Start: 1955 Medicare Annual Wellness Visit Medicare Annual Wellness Visit (AWV) [facility] Start: 1955 Screening for malignant neoplasm of colon [facility] Start: 1955 Screening for osteoporosis Bone Density Scan [facility] Immunizations Immunization Date Immunization Notes Care Provider Fa cilijeffery 03-10-2022 Fluad Quadrivalent 0 .5 ML Intramuscular Prefilled Syringe Inocencio Rosado Work Phone: [facility] 03-10-2022 pneumococcal polysaccharide vaccine, 23 valent Inocencio Rosado Work Phone: [facility] 02-04-2022 Pfizer COVID-19 Vac Bivalent 30 MCG/0.3ML Intramuscular Suspension Inocencio Rosado Work Phone: [facility] Work Phone: 04-15-2022 Comirnaty 30 MCG/0.3 ML Intramuscular Suspension Referring Provider Unknown [facility] [address] [place] Work Phone: 08-08-2021 Pfizer-BioNTech COVI D-19 Vacc 30 MCG/0.3ML Intramuscular Suspension Referring Provider Unknown [facility] 130 [place] Work Phone: 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: Series: 01-24-2021 Fluad Quadrivalent 0 .5 ML Intramuscular Prefilled Syringe Referring Provider Unknown [facility] 01-24-2021 influenza, seasonal, injectable MD Inocencio Rosado Work Phone: [facility] 01-24-2021 pneumococcal conjuga te vaccine, 13 valent Referring Provider Unknown [facility] 06-29-2020 Pfizer-BioNTech COVI D-19 Vacc 30 MCG/0.3ML Intramuscular Suspension Referring Provider Unknown [facility] 06-08-2020 Pfizer-BioNTech COVI D-19 Vacc 30 MCG/0.3ML Intramuscular Suspension Referring Provider Unknown [facility] 01-24-2020 influenza, injectabl e, quadrivalent, preservative free Referring Provider Unknown [facility] Payers Date Payer Category Payer Self-pay [id number] 2022 Medicare [id number] 2022 Unknown [id number] 2020 Medicare MEDICARE MEDICAR E A AND B [id number] 2020-Present [phone] [address] [address] [place] [address] Medicare [id number] 2020 Medicare [id number] 2020 Unknown MMO MMO MEDICARE SUPPLEMENT [id number] 2020-Present [phone] [address] [place] [address] Indemnity [id number] 1955 Unknown [id number] [id number]. 1955 Unknown [id number] [id number]. 1955 Unknown [id number] [id number]. 1955 Unknown [id number] [id number] 1955 Unknown [id number] 1955 Unknown [id number] [id number] 1955 Unknown [id number] [id number] 1955 Unknown [id number] [id number] 1955 Unknown [id number] [id number] 1955 Unknown [id number] [id number] 1955 Unknown [id number] [id number]. 1955 Unknown [id number] 2.16.840.1.931039.3.579.2. 1955 Unknown [id number] 2.16.840.1.548089.3.579.2. 1955 Unknown [id number] 2.16.840.1.449713.3.579.2. 1955 Unknown [id number] 2.16.840.1.866497.3.579.2. 1955 Unknown [id number] 2.16.840.1.611793.3.579.2. 1955 Unknown [id number] 2.16.840.1.193760.3.579.2. 1955 Unknown [id number] 2.840.1.852765.3.579.2. 1955 Unknown [id number] 2.16.840.1.695441.3.579.2. 1955 Unknown [id number] 2.840.1.208711.3.579.2. 1955 Unknown [id number] 2.840.1.985282.3.579.2. 1955 Unknown [id number] 2.840.1.800503.3.579.2. 1955 Unknown [id number] 2.840.1.589306.3.579.2. 1955 Unknown [id number] 2.840.1.098206.3.579.2. 1955 Unknown [id number] 2.840.1.739094.3.579.2. 1955 Unknown [id number] 2.840.1.671427.3.579.2. 1955 Unknown [id number] 2.840.1.287245.3.579.2. 1955 Unknown [id number] 2.16840.1.251207.3.579.2. 1955 Unknown [id number] 2.16.840.1.090429.3.579.2. 1955 Unknown [id number] 2.840.1.741168.3.579.2. 1955 Unknown [id number] 2.16840.1.628313.3.579.2.356 1955 Unknown [id number] 2.16840.1.560157.3.579.2. 1955 Unknown [id number] 2.840.1.282813.3.579.2. 1955 Unknown [id number] 2.16840.1.987876.3.579.2. 1955 Unknown [id number] 2.840.1.818667.3.579.2. 1955 Unknown [id number] 2.840.1.165816.3.579.2. 1955 Unknown [id number] 2.840.1.366333.3.579.2. 1955 Unknown [id number] 2.840.1.417673.3.579.2. 1955 Unknown [id number] 2.840.1.299062.3.579.2. 1955 Unknown [id number] 2.840.1.066865.3.579.2. 1955 Unknown [id number] 2.840.1.503758.3.579.2. 1955 Unknown [id number] 2.840.1.926030.3.579.2. 1955 Unknown [id number] 2.16840.1.355137.3.579.2. 1955 Unknown [id number] 2.840.1.231817.3.579.2. 1955 Unknown [id number] 2.840.1.260434.3.579.2. 1955 Unknown [id number] 2.16.840.1.614457.3.579.2.718 1955 Unknown [id number] 2.16.840.1.067302.3.579.2.718 1955 Unknown [id number] 2.16.840.1.745852.3.579.2.8 1955 Unknown [id number] 2.16.840.1.755059.3.579.2.8 1955 Unknown [id number] 2.16.840.1.119726.3.579.2.8 1955 Unknown [id number] 2.16.840.1.761209.3.579.2. Self-pay 112 Self-pay 1234 Unknown Unknown [id number] 2.16.840.1.461230.3.579.2.531 Social History Date Type Detail Facility Tobacco smoking stat us ORIS Tobacco smoking consumption unknown [facility] Start: 1955 Sex Assigned At Not on file [facility] Start: 07-08-2021 End: 05-24-2023 Exposure to SARS-CoV-2 (event) Not sure [facility] Start: 08-06-2021 End: 05-24-2023 Tobacco smoking status ORIS Never smoked tobacco [facility] Start: 08-06-2021 End: 05-24-2023 Tobacco use and exposure Smokeless tobacco non-user [facility] Start: 1955 Sex Assigned At Female [facility] Work Phone: 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: 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 [employer]; Start: 05-24-2023 Alcohol intake Current drinke r of alcohol (finding) [facility] Work Phone: Start: 05-24-2023 Alcohol Comment ocassionally [facility] Work Phone: Gender identity Not on file [facility] Work Phone: Start: 01-11-2023 Sexual orientation Choose not to dis close [facility] Work Phone: Clinical Notes 02-24-2021 to 01-10-2024 Daniel Jimenez, DO - 05/24/2023 3:00 PM ESTPatient InstructionsPatient InstructionsNancy Villalta, DO - 08/06/2021 9:30 AM EDTTelephone Encounter - Joy Kearney - 07/24/2021 4:36 PM EDT Note Date & Type Note Facility 01-10-2024 Note - From: NICOLE PETERS DO To: [facility] Sent: 01/07/2024 16:24:13 EDT Subject: FW: Medication Management Due Date/Time: 01/08/2024 10:38:00 EDT Caller Name: FLAQUITA ROBERTSON; Caller Number: , --------- From: [facility] [id number] To: NICOLE PETERS DO Sent: January 07, 2024 9:38:48 AM CDT Subject: Medication Management Due: January 08, 2024 12:14:44 AM CDT On Hold Pending Signature Drug: [...] from Pharmacy: On Hold Pending Signature Drug: eszopiclone (eszopiclone [...] Pharmacy: --------- From: Griselda Smith MA To: [facility] [id number] Sent: 01/10/2024 08:17:36 EDT Subject: FW: Medication Management Not Approved: Refill not appropriate, Proposal sent to provider eszopiclone (ESZOPICLONE 3 MG TABLET) TAKE 1 TABLET BY MOUTH AT BEDTIME NEEDED FOR INSOMNIA Qty: 30 tab(s) Days Supply: 30 Refills: 0 Substitutions Allowed Route To Pharmacy - [facility] [id number] Signed by Griselda Smith MA Not Approved: Refill not appropriate, Proposal sent to provider LORazepam (LORazepam 0.5 MG TABLET) TAKE 1 TABLET BY MOUTH 2 TIMES A DAY NEEDED FOR ANXIETY Qty: 60 tab(s) Days Supply: 30 Refills: 0 Substitutions Allowed Route To [facility] - [facility] [id number] Signed by Griselda Smith MA [facility] 12-08-2023 Note - From: NICOLE PETERS DO To: [facility] Clinical Pool ([facility]); Sent: 12/07/2023 14:53:55 EDT Subject: FW: Medication Management Due Date/Time: 12/08/2023 14:28:00 EDT Caller Name: ROCKY CHAR; Caller Number: , --------- From: [facility] [phone] To: NICOLE PETERS DO Sent: December 07, [...] from Pharmacy: --------- From: Radha Ferraro To: [facility] [id number] Sent: 12/08/2023 13:52:25 EDT Subject: FW: Medication Management Not Approved: proposed to provider eszopiclone (ESZOPICLONE 3 MG TABLET) TAKE 1 TABLET BY MOUTH AT BEDTIME NEEDED FOR INSOMNIA Qty: 30 tab(s) Days Supply: 30 Refills: 0 Substitutions Allowed Route To Pharmacy - [facility] [id number] Signed by Radha Ferraro Not Approved: proposed to provider LORazepam (LORazepam 0.5 MG TABLET) TAKE 1 TABLET BY MOUTH 2 TIMES A DAY NEEDED FOR ANXIETY Qty: 60 tab(s) Days Supply: 30 Refills: 0 Substitutions Allowed Route To Pharmacy - [facility] [id number] Signed by Radha Ferraro [facility] 11-10-2023 Note Patient Education Ma terials [...] these instructions at home: Medicines ? Take lbey-hxv-bmnrdzp and prescription medicines only as told by [...] provider. Document Revised: 11/22/2020 Document Reviewed: 11/22/2020 [employer] Patient Education ? 2022 [employer]. [facility] 11-08-2023 Note - From: NICOLE PETERS DO To: [facility] Clinical Pool ([facility]); Sent: 11/08/2023 07:40:19 EDT Subject: FW: Medication Management Due Date/Time: 11/08/2023 21:09:00 EDT Caller Name: FLAQUITA ROBERTSON; Caller Number: , M --------- From: [facility] [id number] To: NICOLE PETERS DO Sent: November 07, [...] from Pharmacy: --------- From: Radha Ferraro To: [facility] [id number] Sent: 11/08/2023 08:28:25 EDT Subject: FW: Medication Management Not Approved: proposed to provider eszopiclone (ESZOPICLONE 3 MG TABLET) TAKE 1 TABLET BY MOUTH AT BEDTIME NEEDED FOR INSOMNIA Qty: 30 tab(s) Days Supply: 30 Refills: 0 Substitutions Allowed Route To Pharmacy - [facility] [id number] Signed by Radha Ferraro [facility] 11-03-2023 Note - From: NICOLE PETERS DO To: [facility] Clinical Pool ([facility]); Sent: 11/03/2023 07:34:17 EDT Subject: FW: Medication Management Due Date/Time: 11/03/2023 17:13:00 EDT Caller Name: FLAQUITA ROBERTSON; Caller Number: , --------- From: [facility] [id number] To: NICOLE PETERS DO Sent: November 02, [...] Pharmacy: --------- From: Griselda Smith MA To: [facility] [id number] Sent: 11/03/2023 08:43:22 EDT Subject: FW: Medication Management Not Approved: Refill not appropriate, proposal sent to provider LORazepam (LORazepam 0.5 MG TABLET) TAKE 1 TABLET BY MOUTH 2 TIMES A DAY NEEDED FOR ANXIETY Qty: 60 tab(s) Days Supply: 30 Refills: 0 Substitutions Allowed Route To Pharmacy - [facility] [id number] Signed by Griselda Smith MA [facility] 09-26-2023 Note Entered by IDALIA PETERS DO on September 26, 2023 18:58:33 EDT From: NICOLE PETERS DO To: [facility] [id number] Sent: 09/26/2023 18:58:33 EDT Subject: Medication Management Submitted: Complete:venlafaxine (Effexor XR 150 mg oral capsule, extended release) Signed by NICOLE PETERS DO 09/26/2023 18:58:00 EDT Approved with modifications: venlafaxine (VENLAFAXINE HCL ER 150 MG CAP) TAKE 1 CAPSULE BY MOUTH DAILY Qty: 90 cap(s) Days Supply: 90 Refills: 1 Substitutions Allowed Route To Pharmacy - [facility] [id number] --------- From: [facility] [id number] To: NICOLE PETERS DO Sent: September 24, [...] 0 Substitutions Allowed Notes from Pharmacy: --------- [facility] 08-25-2023 Note Discharge/Transfer N ote Type [...] (electronically signed on 08/25/2023 at 9:11 AM) [facility] 08-05-2023 Note - From: NICOLE PETERS DO To: [facility] Clinical Pool ([facility]); Sent: 08/05/2023 13:18:50 EDT Subject: FW: Medication Management Due Date/Time: 08/06/2023 13:17:00 EDT Caller Name: FLAQUITA ROBERTSON; Caller Number: , --------- From: [facility] [id number] To: NICOLE PETERS DO Sent: August 05, [...] from Pharmacy: --------- From: Griselda Smith To: [facility] [id number] Sent: 08/05/2023 15:50:09 EDT Subject: FW: Medication Management Not Approved: Refill not appropriate, proposal sent to provider LORazepam (LORazepam 0.5 MG TABLET) TAKE 1 TABLET BY MOUTH TWICE A DAY NEEDED FOR ANXIETY Qty: 60 tab(s) Days Supply: 30 Refills: 0 Substitutions Allowed Route To Pharmacy - [facility] [id number] Signed by Griselda Smith [facility] 05-24-2023 History of Present illness Narrative Patient: Flaquita Robertson [id number] : 1955 -- AGE 67 y.o. Provider: DO Caren Celeste [facility] Service Date: 05/24/2023 [facility] Follow Visit Note HISTORY OF PRESENT ILLNESS HISTORY OF PRESENT ILLNESS Flaquita Robertson is a 67 y.o. 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 Preferred sleeping position: SLEEP POSITION: supine [...] conditions (11/05/2021). She is following up at [facility] for an evaluation of [...] sooner as needed. documented in this encounter [facility] Work Phone: 05-24-2023 Instructions Daniel Jimenez DO - 05/24/2023 3:00 PM EST Images from the original note were not included. [facility] DO [address] [facility] [address] [facility] [address] NAME: Flaquita Robertson DATE: 05/24/2023 Your Sleep Provider Today: Daniel Jimenez DO Your Primary Care Physician: Inocencio Rosado MD Your Referring Provider: No ref. provider found DIAGNOSIS: Thank you for coming to the Sleep Medicine Clinic today! Your sleep medicine provider today was: Daniel Jimenez DO Below is a summary of your [...] or as your insurance allows from your [employer] company. Replacement cushions for your PAP mask can be requested monthly if airseals are an issue. - Remember to clean your mask, tubings, and water chamber regularly as instructed. - Avoid driving or operating heavy machinery when drowsy. A person driving while sleepy is five (5) times more likely to have an accident. If you feel sleepy, well puller head and take a short power nap (sleep for less than 30 minutes). Otherwise, ask somebody to drive you. IMPORTANT INFORMATION Call 911 for medical emergencies. Our offices are generally open from Wednesday-Wednesday, 9 am - 5 pm. If you need to get in touch with me, you may either call me and my team(number is below) or you can use [email or web address]. If a referral for a test, for CPAP, or for another specialist was made, and you have not heard about scheduling this within a week, please call scheduling at [phone]). If you are unable to make your [...] Medicine Clinic Appointments (for Pediatric Sleep Clinic): [phone] - option 1 Appointments (for Adult Sleep Clinic): [phone]) - option 2 Appointments (For Sleep Studies): [phone]) - option 3 Behavioral Sleep Medicine: [phone] Sleep Surgery: [phone] ENT (Otolaryngology): [phone] Headache Clinic (Neurology): [phone] Neurology: [phone] Psychiatry: [phone] Pulmonary Function Testing (PFT) Center: [phone] Pulmonary Medicine: [phone] [employer] (DME): [employer] (DME): [phone] [facility] (DME): [phone] OUR ADULT SLEEP MEDICINE TEAM Please do not hesitate to call the office or sleep nurse with any questions between appointments: Adult Sleep Nurses (Lexy Paulino, EDILMA and Dilcia Jones RN): For clinical questions and refilling prescriptions: [phone] Email sleep diaries and other documents at: Adult Sleep Medicine Secretaries: Joy Sage (For Cece/Calderon/Krise/Strohl/Yeh/A dams): P: [phone] F: [phone] Arlette Ordonez (For Cisneros/Guggensofialer): P: Darya Salcedo (For Jurcevic/Blank): P: [phone] F: [phone] Chica Hairston (For [place]): P: [phone] F: [phone] Kellee Ray (For Carri/Amy/Zakhary): P: [phone] F: [phone] Yoko Ibanez (For Estrada/Deleon): P: [phone] F: [phone] Adult Sleep Medicine Advanced Practice Providers: Jim Arzola ([place], [place]) Shantell Reyes ([facility]) Miguelina Mike CNP ([place], [place], [place]) Gia De La Garza CNP ([place], [place], [place]) Loan Phan ([place], [place], [place]) Twila Deleon BALANCE WHEEL MOTION INSPECTOR ([place], [place]) OUR SLEEP TESTING LOCATIONS Our team will contact you to schedule your sleep study, however, you can contact us as follow: Main Phone Line (scheduling only): [phone] ([phone]), option 3 Adult and Pediatric Locations [facility] (6 years and older): [facility] - 4th floor ([address] [place] [address]) After hours line: [phone] [facility] (Main campus: All ages): [facility], 6th floor. After hours line: [phone] [place] (5 years and older; younger considered on oiuz-xh-rhup basis): [address]; [address], [address]. Scheduling After hours line: [phone] [place] (6 years and older): [address]; [address]; [address] [place] (6 years and older): [address] [facility] [address], [address] After hours line: [phone] [place] (13 years and older) in [place]: [address], 2nd floor After hours line: [phone] [place] (13 year and older): [address] After hours line: [phone] Adult Only Locations: Aishwarya (18 years and older): [address] [facility], 2nd floor [place] (18 years and older): [address] [facility]; 4th floor After hours line: [phone] Victor Manuel Sanders (18 years and older) at [place]: [address] [facility] After hours line: [phone] CONTACTING YOUR SLEEP MEDICINE PROVIDER Send a message directly to your provider through My Chart , which is the email service through your Records Account: [email or web address] Call [phone] and leave a message. One of the administrative assistants will forward the message to your sleep medicine provider through My Chart and/or email. Your sleep medicine provider for this visit was: Daniel Jimenez DO documented in this encounter [facility] Work Phone: 05-05-2023 Note HISTORY: Bone [...] Inocencio Joshua MD 05/05/23 3:48 pm Technologist: [facility] 04-27-2023 Note Entered by CIARAN SMITH on April 27, 2023 16:16:29 EST From: LILIBETH SMITH To: 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, who diagnosed her with occipital neuralgia; she stated that she did 5 weeks of PT, and then plateaued ; the PT also attempted dry needling , which she found ineffective; she stated that she will be getting a second opinion with neurology next week; patient also visited a chiropractor in [place] who is a cervical specialist ; she was told that her neck was off by 3 degrees but after her adjustment she is now aligned Patient also complains of ongoing sleep issues, coughing diagnosed as reflux, mood swings, and fatigueand noted that she is getting a second opinion with neurology next week [facility] [employer] Phone: 05-29-2022 History of Present illness Narrative Pre-Treatment Pain Level: 4/10.Neck and upper back pain 05/29/2022 -patient reports [...] no difference to her headache as well [facility] Work Phone: 05-04-2022 Note Therapy Diagnosis Assessed Vertigo [...] progression. They are being discharged to their [facility]. Response to treatment: decreased pain, improved joint [...] code time is 40 minutes. Therapeutic exercise (54680): timed minutes 30, units 2 . UBE [...] added Lemperts maneuver to HEP. Manual Therapy (57238): timed minutes 10, units 1 . STM to rigjht Scalenes, Levator, [place] suboccipital releases with gentle traction includes vestibular testing . 'Scores and Scales' Signatures Electronically signed by : Manish Kramer PT; May 04 2022 12:25PM EST (Author) [employer] 03-02-2022 Chief complaint Narrative - Reported An [...] name, , and address.CC: it's going well [address] Work Phone: 11-12-2021 History of Present illness [...] some weight. She is meeting with a operational trainer once a week and this week she [...] end of the day. She appreciates this designer/writer increasing the dose for the effexor. She [...] lives close to her mother is working senior project leader/team lead, which leaves the patient to care for [...] and is currently wearing a heart monitor. [address] Work Phone: 10-24-2021 Chief complaint Narrative [...] visit.66 y/o female presents for initial consultation. -[employer] Phone: 08-06-2021 Note HNO ID: [id number] Author: Nancy Villalta, DO Service: ? 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 [facility] 08-06-2021 Instructions Nancy Villalta, - 08/06/2021 [...] buy supplements cheaper (especially Coenzyme Q10) at www.[employer] or at [employer]. General Headache Instructions: 1) Maintain a headache diary; learn to identify and avoid triggers. 2) Limit use of acute treatments (cohy-gbp-lpkkwzu medications, triptans, etc.) to no more than [...] Zeynep Beth, Mug/A+W Root Beer, Minute [place]id [place], Slice are okay)) -Foods containing nitrates (deli meat, ham, corrales, sausage, hot dogs) -Tyramine (aged cheese; can only have Omani cheese, cottage cheese, Velveeta and fresh mozarella (most pizza uses aged mozarella)) -MSG (East Timorese/ foods, Doritos, all flavored chips and Ramen [...] Feverfew: Feverfew is a common garden herb [place] to [place] and popular in [facility] as a treatment for disorders typically controlled [...] The main way of communication is by Physiqt rather than phone lines, so if you have not signed up, please do so. Physiqt is also the way that you can [...] sentences, rather than multiple paragraphs of discussion. MyChart is not meant for, safe, or efficient [...] offering to allow you to have a agbe-al-ppcz conversation with your doctor for 15 minutes [...] WEBCAM CONNECTED: 1. Go to the URL: [email or web address] 2. Click on Sign Up and Create a patient account for yourself. 3. Please also follow the links to Test My Computer . 4. Follow the steps suggested, testing your Internet Speed, Webcam, Microphone, Speaker, and your video software. 5. Please make sure your video software is up-to-date. This is a safe, [facility] approved download, and will not harm your computer. ON AN IPHONE, IPAD, OR ANDROID DEVICE: 1. Open up the [employer] ([employer]) or Radialpoint and search [facility] Express Care Online. 2. Download and Install the Application. 3. Tap on Sign Up and create a patient account for yourself. 4. Please use an e-mail address that you frequently check, as you will receive an e-mail appointment from [facility] Express Care Online. Find our user guide, here: [email or web address] Important: Don t forget your password you [...] be connected to the provider. Please call [phone] prior to your visit if you have any questions regarding technology! documented in this encounter [facility] 08-06-2021 History of Present illness Narrative Images from the original note were not included. 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 Coordination: Finger-to- nose-finger intact bilaterally and Pyez-dm-hspi intact bilaterally. Gait: normal-based. IMPRESSION: Flaquita Robertson [...] August 25, 2021 documented in this encounter [facility] 08-03-2021 History of Present illness Narrative SELF PAY-----Baseline is 08/03, when she left acupuncture pain was 2/10. [...] been seen by a headache specialist at [facility], who diagnosed her with occipital neuralgia; she stated that she did 5 weeks of PT, and then plateaued ; the PT also attempted dry needling , which she found ineffective; she stated that she will be getting a second opinion with neurology next week; patient also visited a chiropractor in [place] who is a cervical specialist ; she was told that her neck was off by 3 degrees but after her adjustment she is now aligned Patient also complains of ongoing sleep issues, coughing diagnosed as reflux, mood swings, and fatigueand noted that she is getting a second opinion with neurology next week [facility] [employer] Phone: 08-03-2021 History of Present illness Narrative [...] been seen by a headache specialist at [facility], who diagnosed her with occipital neuralgia; she stated that she did 5 weeks of PT, and then plateaued ; the PT also attempted dry needling , which she found ineffective; she stated that she will be getting a second opinion with neurology next week; patient also visited a chiropractor in [place] who is a cervical specialist ; she was told that her neck was off by 3 degrees but after her adjustment she is now aligned Patient also complains of ongoing sleep issues, coughing diagnosed as reflux, mood swings, and fatigueand noted that she is getting a second opinion with neurology next week [employer] [employer] Phone: 08-03-2021 History of Present illness Narrative [...] been seen by a headache specialist at [facility], who diagnosed her with occipital neuralgia; she stated that she did 5 weeks of PT, and then plateaued ; the PT also attempted dry needling , which she found ineffective; she stated that she will be getting a second opinion with neurology next week; patient also visited a chiropractor in [place] who is a cervical specialist ; she was told that her neck was off by 3 degrees but after her adjustment she is now aligned Patient also complains of ongoing sleep issues, coughing diagnosed as reflux, mood swings, and fatigueand noted that she is getting a second opinion with neurology next week DONNIE-Kw[facility] [employer] [facility] [facility] Phone: 07-25-2021 History of Present illness Narrative Patient being assessed today for initial evaluation and second opinion regarding migraine headaches. Patient's was being followed by [facility] neurology and was last seen in [...] behind her right eye or the right baptism area and describes it as an aching [...] normal limits. Patient also is established with [facility] and receives acupuncture and has a second [...] not corrected for typographical or grammatical errors TR-Orlllwrgg-Uulcqbln [address] Work Phone: 07-24-2021 Miscellaneous Notes Received reports from CT myelogram of complete spine. Uploaded to chart in Scanned Docs. documented in this encounter [facility] 07-15-2021 Miscellaneous Notes Images from the original note were not included. OSH NI referral from Dr. Wilmer Carrillo, [facility], [place], [place] DX: intractable headache,migraines, borderline intracranial hypotension RFV: Evaluate and treat Scheduling instructions: Patient can see first available Headache specialist Patient to have CT myelogram spine at [facility] with Dr. Quintero. Outside records will be uploaded to chart in Scanned Docs. documented in this encounter [facility] 06-05-2021 History of Present illness Narrative cc: [...] been seen by a headache specialist at [facility], who diagnosed her with occipital neuralgia; she stated that she did 5 weeks of PT, and then plateaued ; the PT also attempted dry needling , which she found ineffective; she stated that she will be getting a second opinion with neurology next week; patient also visited a chiropractor in [place] who is a cervical specialist ; she was told that her neck was off by 3 degrees but after her adjustment she is now aligned Patient also complains of ongoing sleep issues, coughing diagnosed as reflux, mood swings, and fatigueand noted that she is getting a second opinion with neurology next week [facility] Phone: 02-24-2021 History of Present illness Narrative Covid-19 infection date: 02/24/2021 (sx: cough, fatigue, headache - no hospitalization, treated with monoclonal antibody infusion in [place])Covid-19 vaccine status: Pfizer 06/07/20, 06/29/20, 08/08/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 Inocencio Rosado, local Neurologist Dr. Wilmer Carrillo, Francisca Taylor, BALANCE WHEEL MOTION INSPECTOR, [facility]:PHQ-9: 21GAD-7: 9Sleep Wellness: 9 snoresFSS average: [...] helpingFUV is in October with Neurology at [facility], then were [...] would like to restart exercises with a dog trainer who specializes in helping patients with CHEMISTRY QUALITY CONTROL TECHNICIAN dysfunctionHas to lay on her left, cannot [...] for headache and panic attack-07/2021 Neurology at 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 Inocencio Rosado, local Neurologist Dr. Wilmer Carrillo, Francisca Taylor, BALANCE WHEEL MOTION INSPECTOR, [facility]:PHQ-9: 21GAD-7: 9Sleep Wellness: 9 snoresFSS average: [...] helpingFUV is in October with Neurology at [facility] but [facility]/early 20s, then were [...] would like to restart exercises with a dog trainer who specializes in helping patients with CHEMISTRY QUALITY CONTROL TECHNICIAN dysfunctionHas to lay on her left, cannot [...] for headache and panic attack-07/2021 Neurology at 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 Inocencio Rosado, local Neurologist Dr. Wilmer Carrillo, Francisca Taylor, BALANCE WHEEL MOTION INSPECTOR, [facility]:PHQ-9: 21GAD-7: 9Sleep Wellness: 9 snoresFSS average: [...] helpingFUV is in October with Neurology at [facility] but [facility]/early 20s, then were [...] would like to restart exercises with a dog trainer who specializes in helping patients with CHEMISTRY QUALITY CONTROL TECHNICIAN dysfunctionHas to lay on her left, cannot [...] for headache and panic attack-07/2021 Neurology at [facility] for headaches suspects cervical paraspinal mm [...] Hx: hysterectomy 2001, squamous cell carcinoma 2020 [facility] Work Phone: 02-24-2021 History of Present illness Narrative 66 y/o female with PMH anxiety, depression, migraines, insomnia, PASC presents for initial consultation. Referred by covid clinic, Erlin Nguyễn. 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 Lives with . [...] able to help him out. Granddaughter in [place] with Down syndrome and heart issues- had open heart surgery. 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 Inocencio Rosado, local Neurologist Dr. Wilmer Carrillo, Francisca Taylor, BALANCE WHEEL MOTION INSPECTOR, [facility]:PHQ-9: 21GAD-7: 9Sleep Wellness: 9 snoresFSS average: 5.778Modified ECog average: 2.333MOCA: /[age]yo female with h/o COVID-19 in February 2021, [...] helpingFUV is in October with Neurology at [facility] but [facility]/early 20s, then were [...] not been able to do this since [place], Gained weight, cannot fit clothes anymore, would like to restart exercises with a dog trainer who specializes in helping patients with CHEMISTRY QUALITY CONTROL TECHNICIAN dysfunctionHas to lay on her left, cannot lay on her right side due to headacheOveraashish has been suffering from body aches since [place], unsure if r/t more sedentary lifeNausea occurs [...] for headache and panic attack-07/2021 Neurology at [facility] for headaches suspects cervical paraspinal mm [...] Hx: hysterectomy 2001, squamous cell carcinoma 2020 [facility] Work Phone: Chief complaint Narrative - Reported HeadacheNeurologic Evaluation.An interactive audio and video telecommunication system which permits real time communications between the patient (at the originating site) and provider (at the distant site) was utilized to provide this telehealth service.Verbal consent was requested and obtained from FLAQUITA ROBERTSON on this date, 10/15/2021 10:30 AM , for a telehealth visit. PM-Oxijaryvg-Xvdstuls B [address] Work Phone: Chief complaint Narrative - Reported 1 vpcyThe patient was cleared by a COVID-19 screening questionnaire and temperature scan, which showed temperature at or below 99.5F -[facility] Work Phone: Chief complaint Narrative - Reported MigraineNeurologic Evaluation.An interactive audio and video telecommunication system which permits real time communications between the patient (at the originating site) and provider (at the distant site) was utilized to provide this telehealth service.Verbal consent was requested and obtained from FLAQUITA ROBERTSON on this date, 06/03/2022 09:30 AM , for a telehealth visit. XG-Bvposemaw-Metafmsd B [address] Work Phone: Chief complaint Narrative - Reported 2 vpcyThe patient was cleared by a COVID-19 screening questionnaire and temperature scan, which showed temperature at or below 99.5F -[facility] Work Phone: Chief complaint Narrative - Reported Visit 3 MedicareThe patient was cleared by a COVID-19 screening questionnaire upon entry to the suite.Please note: Voice to text software was used when completing this note. While the note was proofread, portions may include grammatical errors. Please contact me with any questions/concerns as it relates to these types of errors. -[facility] Work Phone: Evaluation note Diagnosis Occipital neuralgia of right side- Primary Cervical paraspinal muscle spasm Spasm of muscle Migraine without aura and without status migrainosus, not intractable Migraine without aura, without mention of intractable migraine without mention of status migrainosus documented [facility] Diagnosis Migraine without aura and without status migrainosus, not intractable- Primary Migraine without aura, without mention of intractable migraine without mention of status migrainosus Cervical paraspinal muscle spasm Spasm of muscle Occipital neuralgia of right side documented in this encounter [facility] noteNo assessment information availableSt. [facility] Work Phone: Evaluation note* Diagnosis MYRIAM (obstructive sleep apnea)- Primary Obstructive sleep apnea (adult) (pediatric) documented in this encounter [facility] Work Phone: History of Present illness [...] been seen by a headache specialist at [facility], who diagnosed her with occipital neuralgia; she stated that she did 5 weeks of PT, and then plateaued ; the PT also attempted dry needling , whichshe found ineffective; she stated that she will be getting a second opinion with neurology next w tuscarora; patient also visited a chiropractor in [place] who is a cervical specialist ; she was told that her neck was off by 3 degrees but after her adjustment she is now aligned * Patient also complains of ongoing sleep issues, coughing diagnosed as reflux, mood swings, and fatigue * and noted that she is getting a second opinion with neurology next week [facility] [employer] Phone: History of Present illness Narrative* 66 [...] 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 * Naps:. 2x per week, around [...] act out of dream. No nightmares. -[facility]-[address] Work Phone: History of Present illness [...] of motion/joint mobility, sensory and strength. [facility] Work Phone: History of Present illness Narrative* [...] been seen by a headache specialist at [facility], who diagnosed her with occipital neuralgia; she stated that she did 5 weeks of PT, and then plateaued ; the PT also attempted dry needling , whichshe found ineffective; she stated that she will be getting a second opinion with neurology next w tuscarora; patient also visited a chiropractor in [place] who is a cervical specialist ; she was told that her neck was off by 3 degrees but after her adjustment she is now aligned * Patient also complains of ongoing sleep issues, coughing diagnosed as reflux, mood swings, and fatigue * and noted that she is getting a second opinion with neurology next week [facility] Phone: History of Present illness Narrative* cc: [...] tomorrow on vacation for 1 week in [place] * Initial intake (10/08/2021) * Pt came [...] been seen by a headache specialist at [facility], who diagnosed her with occipital neuralgia; she stated that she did 5 weeks of PT, and then plateaued ; the PT also attempted dry needling , whichshe found ineffective; she stated that she will be getting a second opinion with neurology next w tuscarora; patient also visited a chiropractor in [place] who is a cervical specialist ; she was told that her neck was off by 3 degrees but after her adjustment she is now aligned * Patient also complains of ongoing sleep issues, coughing diagnosed as reflux, mood swings, and fatigue * and noted that she is getting a second opinion with neurology next [facility] Work Phone: History of Present illness [...] and improved knowledge and understanding of condition. [facility] Work Phone: history of Present illness Narrative* [...] and improved knowledge and understanding of condition. [facility] Work Phone: history of Present illness [...] to complete today's treatment with some difficulty. [facility] Work Phone: history of Present illness Narrative* [...] to complete today's treatment with some difficulty. [facility] Work Phone: History of Present illness Narrative* No dizziness with any change of position today. * Patient has met most goals and is independent with their home program progression. * They are being discharged to their [facility]. * Response to treatment: decreased pain, improved joint mobility/ROM, improved posture and improved knowledge and understanding of condition. * Patient was able to complete today's treatment with some difficulty. 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 * Naps:. 2x per week, around [...] decreased nocturnal awakenings and decreasedsnoring/ choking/ gasping. [facility] Work Phone: History of Present illness [...] issues patient had to pay over $800 [id number] for a 1 month prescription of the [...] was not corrected for typographical orgrammatical errors EX-Cwjiactbt-Qhoprqde B [address] Work Phone: History of Present illness Narrative* 66 y/o female with PMH anxiety, depression, migraines, insomnia, PASC presents for initial consultation. Referred by covut clinicErlin. 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 Lives with . [...] major impact on fatigue * - Sees dog trainer- started pilates, TRX- twice weekly * [...] able to help him out. Granddaughter in [place] with Down syndrome and heart issues- had open heart surgery. 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 Sees psychiatrist and [...] * Drinks-6-8 glasses of water; 1-2 coffees MP-[facility] [employer] Phone: History of Present illness Narrative* 66 y/o female with PMH anxiety, depression, migraines, insomnia, PASC presents for follow up. Referred by covid clinic, Erlin Nguyễn. 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 Lives with . Two children (42, 41- both live out of state). Accompanied by daughter, Radha. Social Support- family * Successes: * - [...] major impact on fatigue * - Sees dog trainer- started pilates, TRX- twice weekly * - Recognizes HR elevates quickly with exertion, so needs to modify exercise routine * - Has Feel Better in Five book, although has not yet read it * - Rarely uses ativan * - Taking C multivitamin with 500 mg Turmeric, and 1200 [...] able to help him out. Granddaughter in [place] with Down syndrome and heart issues- had open heart surgery. 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 Sees psychiatrist and [...] * Drinks-6-8 glasses of water; 1-2 coffees>>> [facility] Work Phone: History of Present illness Narrative* Pre-Treatment [...] in February 2021. Is under care with [facility] recovery clinic. Had extensive imaging and testing [...] no difference to her headache as well [facility] Work Phone: History of Present illness Narrative* [...] history? No contraindications based on patient's history [facility] [address] Work Phone: History of Present illness Narrative* Pain is described as ache, stiff, sharp and deep. * Pre-Treatment Pain Level: 6/10. * Flaquita presents today for the follow-up [...] back pain. She does workout with a operational trainer twice a week and tries to stay [...] in February 2021. Is under care with [facility] recovery clinic. Had extensive imaging and testing [...] no difference to her headache as well [facility] Phone: History of Present illness Narrative* Pre-Procedure [...] history? No contraindications based on patient's history -[facility] [address] Work Phone: History of [...] history? No contraindications based on patient's history ID-Hzdzvnszg-Tbqltaft B [address] Work Phone: Reason for visit Narrative* Initial Evaluation . Patient is a 66 y/o female, who presented to the clinic today for a Physical therapy evaluation, with complaints of dizziness, nausea, and headaches, that began in February of last year, after being diagnosed with COVID. * Referred by: Flower Nguyễn CNP [facility] Work Phone: Reason for Referral Specialty Diagnoses / Procedures Referred By Manpreet deluca Referred To Contact [facility] Diagnoses Occipital neuralgia of right side Cervical paraspinal muscle spasm Procedures CONSULT TO PHYSICAL THERAPY PHYSICAL THERAPY EVALUATION HIGH COMPLEX 45 MINS Neur Headache [address] [place] [address] [facility] [place] [address] [place] [address] Referral ID Status Reason Start Date Expiration Date Visits Requested Visits Authorized [id number] Pending Review PCP Requested Referral Auto-Generate d [...] or prosecute any alcohol or drug abuse patient.[facility] the event this information is protected by the Federal Confidentiality of Alcohol and Drug Abuse Patient Records regulations: The Federal rules restrict any use of the information to criminally investigate or prosecute any alcohol or drug abuse patient.[facility] the event this information is protected by the Federal Confidentiality of Alcohol and Drug Abuse Patient Records regulations: The Federal rules restrict any use of the information to criminally investigate or prosecute any alcohol or drug abuse patient.[facility] the event this information is protected by the Federal Confidentiality of Alcohol and Drug Abuse Patient Records regulations: The Federal rules restrict any use of the information to criminally investigate or prosecute any alcohol or drug abuse patient.[facility] Reason for Visit (unrecogniz ed section and content) Reason Comments Received Outside Medical Records OSH NI referral to Headache & Facial Pain Reason Comments Received Outside Medical Records Imaging reports Reason Comments New Patient Reason Comments Follow-up Everything is good w ith cpap machine supplies are good will order supplies soon Care Teams (unrecognized sec tion and content) Coding Tech Relationship Specialty Start Date End Date Benito Diaz [address] [place] [address] PCP - General 08/04/00 Wilmer Carrillo [address] [place] [address] NI Referring Team Neurology 07/15/21 Coding Tech Relationship Specialty Start Date End Date Benito Diaz [address] [place] [address] PCP - General 08/04/00 Wilmer Carrillo [address] [place] [address] NI Referring Team Neurology 07/15/21 Coding Tech Relationship Specialty Start Date End Date Benito Diaz [address] [place] [address] PCP - General 08/04/00 Wilmer Carrillo [address] [place] [address] NI Referring Team Neurology 07/15/21 Coding Tech Relationship Specialty Start Date End Date Gaganherber Benito S [address] [place] [address] PCP - General 08/04/00 Wilmer Carrillo [address] [place] [address] NI Referring Team Neurology 07/15/21 Team Status: Active Member Role Status Dates Inocencio Rosado MD Primary Care Provider Active Team Status: Inactive Member Role Status Dates Inocencio Rosado MD Primary Care Provider Active Ashu Goff OD Attending Provider Active Coding Tech Relationship Specialty Start Date End Date Inocencio Rosado MD [address] [place] [address] PCP - General 04/26/99 INFORMATION SOURCE (unrecogn ized section and content) DATE CREATED AUTHOR 08/27/2021 [facility] DATE CREATED AUTHOR AUTHOR'S ORGANIZ ATION 04/15/2022 [facility] DATE CREATED AUTHOR AUTHOR'S ORGANIZ ATION 05/06/2022 [facility] DATE CREATED AUTHOR AUTHOR'S ORGANIZ ATION 10/28/2022 [facility] DATE CREATED AUTHOR AUTHOR'S ORGANIZ ATION 11/13/2022 [facility] DATE CREATED AUTHOR AUTHOR'S ORGANIZ ATION 04/07/2023 [facility] DATE CREATED AUTHOR AUTHOR'S ORGANIZ ATION 08/26/2023 [facility] DATE CREATED AUTHOR AUTHOR'S ORGANIZ ATION 01/11/2024 [facility] l Goals (unrecognized section and content) Goals [...] BE BASED ON THE PRIMARY CLINICAL RECORDS. [facility]. provides no warranty or guarantee of the accuracy or completeness of information in this document.
== END 2024-01-25 10:32 | disposition home or self-care (01) ==
LOC: EC 10:31
PROVIDERS: PCP Family Medicine; Visit Provider Podiatrist Foot & Ankle Surgery
DX: M79.672 Pain in left foot (principal); S92.352D Displaced fracture of fifth metatarsal bone, left foot, subsequent encounter for fracture with routine healing
CPT/HCPCS: 73630

== ENCOUNTER 2024-03-29 09:52 | Outpatient (OUT) | payer MEDICARE, OTHER, SELFPAY ==
--- NOTE | 2024-03-29 | XR_ITS ---
The [address] [address] Patient Name: VIKTORIA HIDALGO MRN: [id number] date: 1955 Sex: F Assigned Patient Location: [facility] Current Patient Location: Accession/Order Number: [id number] Exam Date: 03/29/2024 09:53 Report Date: 03/30/2024 05:52 At the request of: JEEVAN RASCON Procedure: XR foot LT min 3V PROCEDURE: XR foot LT min 3V HISTORY: LEFT FOOT PAIN COMPARISON: XR foot left 01/25/2024, 02/08/2024 FINDINGS: BONES:Prior oblique fracture of 5th metatarsal diaphysis with increasing bone density and callus formation at site of fracture. Stable alignment with only mild medial displacement. SOFT TISSUES:No visible soft tissue swelling. EFFUSION:None visible. OTHER: Negative. XR/XR foot LT min 3V IMPRESSION: 1. Stable alignment and ongoing bone healing of 5th metatarsal fracture. Electronically authenticated by: SURI TUTTLE Date: 03/30/2024 05:52
--- OUTSIDE RECORDS SUMMARY | 2024-03-29 10:14 | XMS_ITS | CCD ---
Author Organization [facility] Care Team Providers Care Document Control Specialist Name Role Phone Svetlanadiogenesherber Benito S Primary [...] Referring Unavailable Ashlee, Dr. Inocencio Hairston Primary [facility] Unava ilable Torer, Ms. Crenshaw Attending Unavailable Toreliseo, Ms. Crenshaw Referring Unavailable Ashlee, Dr. Inocencio Hairston [facility] Care Unava ilable Torer, Ms. Crenshaw Referring Unavailable Torer, MsMaximiliano Crenshaw Attending Unavailable Ashlee, Dr. Inocencio Hairston Primary Care Unava ilable Torer, MsMaximiliano Crenshaw Referring Unavailable Torer, MsMaximiliano Crenshaw Attending Unavailable Ashlee, Dr. Inocencio Hairston [facility] Care Unava ilable Torer, Ms. Crenshaw Attending Unavailable Ashlee, Dr. Inocencio Hairston Primary [facility] Unava ilable Torer, MsMaximiliano Crenshaw Referring Unavailable Torer, MsMaximiliano Crenshaw Attending Unavailable Torer, MsMaximiliano Crenshaw Referring Unavailable Ashlee, Dr. Inocencio Hairston [facility] Unava ilable Torer, Ms. Crenshaw Attending Unavailable Torer, Ms. Crenshaw Referring Unavailable Cadigan, Dr. Inocencio Hairston [facility] Unava ilable Unavailable Unavailable Calderon, Dr. Aundrea Guadalupe Attending Vanessa vailable Calderon, Dr. Aundrea Guadalupe Referring Vanessa vailable Cadigan, Dr. Inocencio Hairston [facility] Unava ilable TORELISEO, TMAMI CAMPA Attending Unavailable TORELISEO, TAMMI CAMPA Referring Unavailable Cadigan, Dr. Inocencio Hairston [facility] Unava ilable Zoie Tejeda Attending Unavailable Zoie Tejeda Referring Unavailable Cadigan, Dr. Inocencio Hairston [facility] Unava ilable Cassius, Ms. Griselda Attending Unavailable Wyandotte, Ms. Griselda Referring Unavailable Cadigan, Dr. Inocencio Hairston [facility] Unava ilable Yakelin Acosta Attending Unavailable Cassius, Ms. Griselda Referring Unavailable Cadigan, Dr. Inocencio Hairston [facility] Monique Unava ilable Cassius, Ms. Griselda Attending Unavailable [place], Ms. Griselda Referring Unavailable Cadigan, Dr. Inocencio Hairston [facility] Monique Unava ilable Cassius, Ms. Griselda Attending Unavailable [place], Ms. Griselda Referring Unavailable Cadigan, Dr. Inocencio Hairston [facility] Unava ilable [place], Ms. Griselda Attending Unavailable [place], Ms. Griselda Referring Unavailable Cadigan, Dr. Inocencio Hairston [facility] Unava ilable Zoie Tejeda Attending Unavailable Zoie Tejeda Referring Unavailable Cadigan, Dr. Inocencio Hairston [facility] Monique Unava ilable Karie, Ms. Cosme Jaeger Attending Unava ilable Zoie Tejeda Referring Unavailable Cadigan, Dr. Inocencio Hairston [facility] Monique Unava ilable Karie, Ms. Cosme Jaeger Attending Unava ilable Zoie Tejeda Referring Unavailable Cadigan, Dr. Inocencio Hairston [facility] Unava ilable Cassius, Ms. Griselda Attending Unavailable Cassius, Ms. Griselda Referring Unavailable Cadigan, Dr. Inocencio Hairston [facility] Unava ilable Eve Mccollum Attending Unavailable ProsEve wilkins Referring Unavailable Cadigan, Dr. Inocencio Hairston [facility] Unava ilable Cassius, Ms. Griselda Attending Unavailable Cassius, Ms. Griselda Referring Unavailable Cadigan, Dr. Inocencio Hairston [facility] Unava ilable Cassius, Ms. Griselda Attending Unavailable [place], Ms. Griselda Referring Unavailable Cadigan, Dr. Inocencio Hairston [facility] Unava ilable [place], Ms. Griselda Attending Unavailable Cassius, Ms. Griselda Referring Unavailable Cadigan, Dr. Inocencio Hairston [facility] Unava ilable Daniel Jimenez Attending Unavailable Cadigan, Dr. Inocencio Hairston Referring Unava ilable Cadigan, Dr. Inocencio Hairston [facility] Unava ilable Daniel Jimenez Attending Unavailable TORER, TAMMI SESAYIANA Referring Unavailable Cadigan, Dr. Inocencio Hairston [facility] Unava ilable Cassius, Ms. Griselda Attending Unavailable [place], Ms. Griselda Referring Unavailable Cadigan, Dr. Inocencio Hairston [facility] Unava ilable Prosak, Eve Attending Unavailable Prosak, Eve Referring Unavailable Cadigan, Dr. Inocencio Hairston [facility] Unava ilable Cassius, Ms. Griselda Attending Unavailable [place], Ms. Griselda Referring Unavailable Cadigan, Dr. Inocencio Hairston [facility] Unava ilable Prosak, Eve Attending Unavailable Prosak, Eve Referring Unavailable Cadigan, Dr. Inocencio Hairston [facility] Unava ilable Prosak, Eve Attending Unavailable Prosak, Eve Referring Unavailable Cadigan, Dr. Inocencio Hairston [facility] Unava ilable BRADESCA, PAC LISSA ELIANA Attending Unavai lable BRADESCA, PAC LISSA ELIANA Referring Unavai lable Cadigan, Dr. Inocencio Hairston [facility] Unava ilable Devon, Dr. Xavier Bianchi Attending Unavail able Trager, Dr. Xavier Bianchi Referring Unavail able Cadigan, Dr. Inocencio Hairston [facility] Unava ilable Trager, Dr. Xavier Bianchi Attending Unavail able Trager, Dr. Xavier Bianchi Referring Unavail able Cadigan, Dr. Inocencio Hairston [facility] Unava ilable BRADESCA, PAC LISSA ELIANA Attending Unavai lable BRADESCA, PAC LISSA ELIANA Referring Unavai lable Cadigan, Dr. Inocencio Hairston [facility] Unava ilable Cassius, Ms. Griselda Attending Unavailable [place], Ms. Griselda Referring Unavailable Cadigan, Dr. Inocencio Hairston [facility] Unava ilable [place], Ms. Griselda Attending Unavailable Cassius, Ms. Grsielda Referring Unavailable Cadigan, Dr. Inocencio Hairston Primary Care Unava ilable Cassius, . Griselda Attending Unavailable [place], Ms. Griselda Referring Unavailable Cadigan, Dr. Inocencio Hairston Primary Care Unava ilable Cassius, MsMaximiliano Villalobos Attending Unavailable [place], Ms. Griselda Referring Unavailable Cadigan, Dr. Inocencio Hairston Primary Care Unava ilable [place], MsMaximiliano Villalobos Attending Unavailable [place], Ms. Griselda Referring Unavailable Ashlee, Dr. Inocencio [...] Unavailable Inocencio Rosado MD Primary Care Unavailable Ashu Goff Admitting Unavailable Ashu Goff Attending Unavailable HOUSE, DO NICOLE P Attending Unavailable HOUSE, DO NICOLE P Admitting Unavailable HOUSE, NICOLE P Primary Care Unavailable Jean-Claude, Francesco P Primary Care Unavailable Jean-Claude, Francesco P Primary Care Unavailable [facility], Mendoza Tapia Admitting [facility]available [facility] Mendoza Tapia Attending Unavailable HOUSE, NICOLE P Primary Care Unavailable Ehsan, Patricio Silverio Admitting Unavailable Ehsan, Patricio Silverio Attending Unavailable Jean-Claude, Francesco P Attending Unavailable Jean-Claude, Francesco P Primary Care Unavailable HOUSE, NICOLE P Primary Care Unavailable Jean-Claude, Francesco P Attending Unavailable HOUSE, DO NICOLE Vazquez Attending Unavailable Inocencio Rosado MD Primary Care Unavailable HOUSE, DO NICOLE Vazquez Admitting Unavailable Inocencio Rosado MD Attending Unavailable Inocencio Rosado MD Primary Care Unavailable HOUSE, DO NICOLE P Attending Unavailable HOUSE, NICOLE P Primary Care Unavailable HOUSE, NICOLE P Primary Care Unavailable HOUSE, NICOLE P Primary Care Unavailable Medications Current Medications Medication Drug Class(es) Dates Sig (Normalized) Sig (Original) azelastine hydrochloride 0.137 mg/actuat metered dose nasal spray (20 sources) Histamine-1 Receptor Antagonist Start: 09-10-2021 azelastine (Astelin) 137 mcg (0.1 %) nasal spray Administer into affected nostril(s). 09/10/2021 Active Start: 06-07-2017 End: 07-14-2021 Azelastine Discontinued 2 SP RAY INTRANASAL As Directed June 07, 2017 12:00am July 14, 2021 7:41am azelastine (ASTE MAKSIM) 0.1% nasal spray Use 1 Dalton in each nostril as needed. 0 Active 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: Use 1 Dalton in each nostril as needed. Calcium (20 sources) Phosphate Binder, Calcium Start: 06-07-2017 take 1 tablet by mouth three times daily Kt-K7-Vhe-Zinc-Bedspread Inspector- Cesar-Rut[place] (Caltrate 600-D Plus Minerals) 600 mg calcium- 800 unit-40 mg Tablet,Chewable Active 1 TAB PO Three times daily June 07, 2017 12:00am Calcium + D TABS Quantity: 0 Refills: 0 Ordered: 16-Oct-2021 DO Active CALCIUM CITRATE-VITAMIN D3 O RAL (2 sources) CALCIUM CITRATE- VITAMIN D3 ORAL Take by mouth. Active CALCIUM CITRATE- VITAMIN D3 ORAL Take by mouth. 0 Active cetirizine hydrochloride 10 mg oral tablet (20 sources) Histamine-1 Receptor Antagonist Start: 06-07-2017 take 1 tablet by mouth every twenty-four hours as needed cetirizine (ZyrTEC) 10 mg tablet Take 1 tablet (10 mg) by mouth once daily as needed. 10/06/2021 Active cetirizine HCl ( ZYRTEC ORAL) Take by mouth. 0 Active 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: Take by mouth. chlorzoxazone 500 mg oral tablet (1 source) Muscle Relaxant Start: 2 take 1 tablet by mouth four times daily as needed chlorzoxazone (PARAFON FORTE DSC) 500 mg tablet Indications: Migraine without aura and without status migrainosus, not intractable , Cervical paraspinal muscle spasm , Occipital neuralgia of right side Take 1 tablet by mouth four times daily as needed. 20 tablet 0 09/19/2021 Active Start: 09-19-2021 take 1 tablet by joey four times daily as needed chlorzoxazone (PARAFON FORTE DSC) 500 mg tablet Indications: Migraine without aura and without status migrainosus, not intractable , Cervical paraspinal muscle spasm , Occipital neuralgia of right side Take 1 tablet by mouth four times daily as needed. 20 tablet 0 09/19/2021 Active 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: Take 1 tablet by [facility] four times daily as needed. esomeprazole 40 mg delayed release oral capsule (2 sources) Proton Pump Inhibitor Start: 3 take 1 capsule by mouth once daily esomeprazole (NexIUM) [address] capsule Take 1 capsule (40 mg) by mouth once daily. 06/04/2022 Active eszopiclone 3 mg oral tablet (20 sources) Start: 8 take 1 tablet by mouth once daily at bedtime Lunesta 3 mg tablet Take 1 tablet (3 mg) by mouth once daily at bedtime. 10/06/2021 Active eszopiclone (ROBERTO ESTA ORAL) Take [...] mg) by mouth once daily as needed. 10/06/2021 Active Start: 06-22-2021 LORazepam (ATI VAN) 0.5 mg 0.5 mg as needed. anxiety 0 06/22/2021 Active 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: 0.5 mg as needed. an xiety magnesium oxide 400 mg oral tablet (2 sources) magnesium oxide (Mag-Ox) 400 mg tablet Take by mouth. Active methylPREDNISolone (1 source) Corticosteroid Start: 2023 End: 2023 methylPREDNISolone (Medrol Dospak) 4 mg tablets Indications: Migraine without aura and without status migrainosus, not intractable Follow schedule on package instructions 21 tablet 01/31/2024 02/07/2024 Active niacinamide 500 mg oral tablet (20 sources) Start: 2021 take 1 tablet by mouth once daily niacinamide 500 mg tablet Take 1 tablet (500 mg) by mouth once daily. 10/06/2021 Active Start: 07-14-2021 take 500 mg by mouth twice daily Niacinamide Active 500 MG PO Twice daily July 13, 2021 11:00pm NON FORMULARY (2 sources) NON FORMULARY Vy epti 100 mg/ml intravenous solution infuse 300mg in 100 ml naci 0.9% iv over 30 min every 3 months Active NON FORMULARY Vy epti 100 mg/ml intravenous [...] ltasone) 10 mg tablet Take by mouth. 09/24/2022 Active Start: 09-24-2022 take 2 tablets by mo uth every [...] 15-Oct-2021 Active Qulipta 60 mg tablet tablet (2 sources) take 1 tablet by joey th once daily Qulipta 60 mg tablet tablet Take 1 tablet (60 mg) by mouth once daily. With or without food Active take 1 tablet by mouth once jory y Qulipta 60 mg tablet tablet Take 1 tablet (60 mg) by mouth once daily. With or without food 0 Active RABEprazole sodium 20 mg delayed release oral tablet (20 sources) Proton Pump Inhibitor RABEprazol e (Aciphex) EC tablet Take by mouth. Active RABEprazole Sodi um 20 MG Oral [...] 07, 2017 12:00am July 14, 2021 7:45am Lrbrkbh-Voecsbfre-Odx rodriguez D 600-300-400 Oral Liquid (13 sources) [...] NIACIN, BULK, MISC (2 sources) NIACIN, BULK, [place] SC Qulipta 60 MG Oral Tablet (20 [...] Start: 10-16-2021 take 1 capsule by mo ut once daily venlafaxine XR (Effexor-XR) 150 mg 24 hr capsule Take 1 capsule (150 mg) by mouth once daily. 10/16/2021 Active Start: 10-16-2021 take 1 capsule by mo uth once daily Venlafaxine HCl ER 75 MG Oral Capsule Extended Release 24 Hour take 1 capsule by mouth once daily Quantity: 30 Refills: 1 Ordered: 16-Oct-2021 Joana Silverman Start : 16-Oct-2021 Active Start: 10-06-2021 take 1 capsule by mo [facility] once daily at mealtime Effexor XR 37.5 [...] Translations: [Depression, unspecified] Onset: 12-15-2021 Nutritional deficiencies (13 sources) Vitamin D deficiency; Translations: [Unspecified vitamin [...] Chronic Other bone disease and musculoskeletal deformities (16 sources) Ankylosis of sacroiliac joint; Translations: [Disorders of sacrum] Onset: 01-27-2023 01-27-2023 Episodic Other bone disease and musculoskeletal deformities (20 sources) Segmental and somatic dysfunction; Translations: [Nonallopathic lesions, thoracic region] Onset: 01-27-2023 01-27-2023 Episodic Other connective tissue disease (6 sources) Disorder of soft tissue; Translations: [Disorders [...] unspecified] Onset: 10-06-2021 Episodic Residual codes; unclassified (11 sources) Reduced libido; Translations: [Decreased libido] Onset: 01-27-2023 01-27-2023 Episodic Residual codes; unclassified (11 sources) Postmenopausal state; Translations: [Asymptomatic postmenopausal status (age-related) (natural)] Onset: 01-27-2023 01-27-2023 Episodic Screening and history of mental health and substance abuse codes (20 sources) H/O: depression; Translations: [Personal history of other mental disorders] Resolved: 04-06-2022 Episodic Sprains and strains (6 sources) Strain of trapezius muscle; Translations: [Late effect of sprain and strain without mention of tendon injury] Onset: 01-27-2023 01-27-2023 Episodic Unclassified (1 source) Personal history of COVID-19; Translations: [Personal history of COVID-19] Onset: 10-06-2021 Unclassified (2 sources) Onset: 05-24-2023 05-24-2023 Results Test Name Value Interpretation Reference Range Facility QuantiFERON-TB Gold Pluson 1 05-03-2023 QuantiFERON Incubation Incubation performed. Invalid Interpretation Code [facility] 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: Result Comment: Perf ormed At: [facility] [address] [id number] Rocky Giang PhD Ph:[phone] Performed By: #### 4 [id number] #### [facility] (DEFAULT) [address] [place] [address] QuantiFERON-TB Gold Plus Negative Invalid Interpretation Code Negative [facility] 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: Result Comment: No r esponse to M tuberculosis antigens detected. Infection with M tuberculosis is unlikely, but high risk individuals should be considered for additional testing (ATS/IDSA/CDC Clinical Practice Guidelines, 2017). The reference range is an Antigen minus Nil result of <0.35 IU/mL. Chemiluminescence immunoassay methodology Performed At: [facility] [id number] Rocky Giang PhD Ph:[phone] Performed By: #### 5 [id number] #### [facility] ([facility] [address] [place] [address] Coding Summaryon 02-10-2024 Coding Summary HTMLBase 64 VzjpxbluBVk0rXy+PGhlYWQ+PE1F IZHrF12rdAIvrL8fE4OJMYkAWnfy KSGIKUkPXmGhoqVeLC5rhEIzCSAv IC8+QB6wDTSrYzpjlAAap1Y3kTT9 G55qtn5rFZmifUY3VDVtTsQizemw u1ipxEw5YLzmTlkrRoTn FHMqjY31TWM4gU06Pa81zQJjvWWd x7chjXj1TjRbSQDdKLX8pNenZJef q1CiYANbU09mnPJre7U0 NNLuoHbpqHYzZzZmiNV4bX5gAWak mnira3igcyjgNjn1uj79bYIpa5E5 jPC4B0VcslW8JFQwkEWt CxfdtPZUzM6kvlqrh9cgpsnbQmBj FDTuGAv1NLo9PIKycPnmWwSkSV49 UMY4JCSeigGpP5HxMMAn yLtoEgA0w9T7Lz1FA6YUQnjtC4WI TUFSWTwvdGQ+AW12oi42W1JhDgdh Klk4LERhTOU3fVI3rI7s CPVpGKpze1Z7pLO8W3ElhxRozt0h i1zuHFNhPVxsZ80kqCIiq3L9QVRg zAY6QPOiaGqjKtJkxI31 Oyc+GHDsdRqbn4UmPkivj5sbl5jy iCz0QmvoMGGecgQppAioJPE3e6Xe Oa1gMLUwrYM9jIA0sM4b BbKpRpU7CFykB091BiDfnTFhBhrs P07eJ7VzwGQ+JLBvUns3EVJnqFtv XZ7pW0GzQJQagfplrIJd hXpsOY1zKNKwgqjuVRYeoE4wFFMm T3q1WlGoVkU8VBdgQ3WqZJEtwqix Wv70gQ8aKlVjLxJ7SSsd D2QfwkN3OGFzkEPoNWmqMHN8V16c e2A3KQYqFMEiSUA4kAC0oO1ukBcx bjogbGVmdDsgdmVydGlj XEtqCOxgE919HODszZqeYyYaAVni ZyBEYXRlOiAgMTAvMTcvMjAyNDwv dGQ+FWFgMJG6lUjiSOFx bIUwEKlxQz3iwWnrkImuZR3eIKDm byixPEKaeH7zKVPriOPfoFlhHT2c HGVjiecbh490SuGjIGN2 AFExaHAuJ9GrcN7oIgOlMJBsUAZi D2UovKMhLOnmS522SQskVfH2TPUo ysNmR7FgEZGgdGujCeB2 a2U8Sv8Hu6GlrqegJ9OniUMdVcXc QxvrSDs4G2AsPeakjGN+HK05GNKj RN90UOq9MLL5bOuxLEvl RGFjK3DmvE5lXjObZYKuDRAaIxd+ PHRhYmxlIHdpZHRoPScxMDAlJyBz vAhrVS3qCn4bHIBiCFYv tZhucCUxHrAly8imMEJyUImgVJ8q cDbnD1FtfLY8ZLUxt7u0Dr53M26w V4CukDY+QQVhtAU2kYX9 fE4bKnDtCzB8RRlkL884JcAhmSLl Eatlx1uey2vmtEv8YpH7TPFucgLd tWbzVYK8o2OnXp97I89q WLlzBVKqCBPxMFUhENNilHdior4t hX2uOg1+NYTxfGC6oFZ6hK5yJaEd JxB9PDxbH123BeLbmJNa Gwmmi3fmz5ouqEt5FoWjRGVypqFq fAmfOJZ5z0TpBw10I2AfdQxbs2Qx Mcx9lx97rKKyk8I3jCF1 W0WfJOPpdauywCWsfQfeUF8rCKMg iirrNJIfhI9wEYKjQ6j0TaUdOzE3 QSgnM7TaniA3LOXzqVPt EBHkxKBNaO3fznpni2yuhckdWzTc GMCnPRo3EOf0EKPkoOpqHpCnUWI2 GdY4ITM3lHMwzC9zdMbv yapzaH9zLbu+HWU0pUQwpGRNXM6m OjwvdGQ+MSOlSLE3aJkdVXqvWUZy tN8iEFKvG2a8IaZzQbC4 FVitI5AojcY3TRQliWHkZJPlfIKY qL7kktlpx6tytkvzHnSlKGPwDUq8 SRw1UCOqmDtsQhUiYEQ0 EnC8CHW2cQCvjI9luVxnlplhhD4q Oyc+OiuidOqkCYH1IXl8K0HhLes5 QNQqwPmkIL7wzTOqSLjj Uv1knMszjGhlII0rDDTuxkpss280 ZdZap1vsHOOuhMLnDZiaVEJ9D98d f1J5LXPqLMQcWGE5hZQ3 wE7nsSbatlzyhRNjoSwjcbEwxCsl UIgpLCcqO966VBEorEcvMnVsWId3 R8GkZit7RFDryEdyZL6a bVHwCUkpUc6kyNetrUxlYT1zBUMl cyycp685GsXtb1fqDTVrsFOlMZji ZIF4Y25qd5M1BMNoWWFm UHT3xVE9uL0ftMmriktupAIyyAqe wjTswZlmYXeqUXdcY346IEGclMeh UlNmpGf4O1WlDho8ZDSz qLydQS7phPFuQKsqVc3dhZjmpBhf JI0dSQOoswmbq193FbRuj5olHNAz eQKtDYylGBD1C58sc2L1 RAYlXJInBZQ5wKK3oV2waRyhidbi pRKdaEwfwtNzmVmfSDyjQCzuI666 IHRvcDsnPlBhdGllbnQg YMwsRRc2P8UiBmpzrOC+VZ28MWMk HJ91uSJdgWRyk7jgsGc6NuVkVDVj TMN0sNajBIvrb2PlNBSo Y62ixLHzp2I7TOUngEsexCXxAuAa yJX2mU7xFFauslwey9mtzsvpZtor g0upqo21pK24U04cDWel WCWeJCYwJEZzBPYjxJmmff6egZ6f Ii8+NQPjqVZ2gMK0oE8hKFCbEzQ0 EDsqG575HxNejTNrFhmx b0kvy3knsDz7QlK6JXUfupNfkJpd KAE3u5CuEg48K26rYScpGMNpGUVl JRIzBIVbcVtbcs1vgI5d Ii8+OXXhvTV4ySK5wW7rXcIaFsW4 EJaaR692OvJwfGPrIbtbD92yJ9Sm dXA+SPDxSzi6FHLwvOvc AU8ulJCjVGelLl0hORA5SjEaXjWr PTzaX0TeABLsgyksgxfprVE1BURa YZJmmV19Ff6dhAjzPZNu xUEHyD1buuaak4utxrjaXyQpNIDl TXu6ECl3MWEcuVjjUeFsBOB9TmJ7 BNV3uYPvjX2hdDovoftv zL4hL0FiDQRwbwuxJy07gX6wUmSq RiX5ZUymUvn+Z6NLM7rBFEUNTPpY IAGUXe63I7KoDwl5PVUt zDnrBH7jmYLoRJbfUe3oxJjseBmk NE6cBUGqszjbUZFgtT4kDIOxqAZz kLgxWV1yPDXzbylbp473 NlOaEQV6SZHihNIdI3UbcF4pCyEm VJQdPSDdP2WahAGiLWeaW689KLci DxT5JMPjhbRcL9BkOLEq vAmsImB1f7J7Qe1mMF0gHZ9lICC0 XJ42ZG69sXJuy0P4cOV9R4TmPYAp vrqskrtvvEG9TPVgGEQx bO45wGKcYDxmVv3db3A6w007SWGe OBMvgW45Kl9dcSlaSFWunEWUsY7j psabu9tkuqblXcEdJCDp YSi4CZb7TNBahCqsHdDxPSD7ZyQ0 NBD2eUKapQ8wqCvqcgwroK5fFtd+ ZayhARZwdtQ9W9HyPyv8 LIHyvOtxMV3qaFPxHHidSh3naMvi tBmvBM1hFVSvqyvsSXWcpX5pYUXy sUQblYgySL1oMRRntonj v894MtRbZOE0SFYfhOTzP7McnC1i LrMiCPTbYCZcC3OdjKSxXJyvH137 WPuvQlA1LJUdxcUaF8Uu FQCfyRcqAsC4y8U9Vd9OUM7PEIU3 Z5GcZwa5DIRekWafBJ6faIYvPCme Ej4fqOzpsAjeBJ2gQOBs uvyzXHHkpP9hYQRgcQPhgDpuTZ6o GARpvxvmb922BwPcHUK0QPHbuKWt Q8EsxF8jNlGmPKNcVBOk S3EvpJPoSHmkV331WLsjKiJ0YAUv txWyT4JeSFYdjKupHpB0g5E2Rx4B UDwvdGQ+KE97qh71C4Au ObdyTnx5EIBdUNS0yJI8tE3sAXVp ITvjk6G3uUB3W6ZdtuGbga9zl2vc SQDhLDvtH34cdDWoo2N5 QKFutHG3QXNapAgfJpZxfC05Umo+ LSWhaRvyp8HpHdbzy4plz9cpzZm1 IjMwJSIgdmFsaWduPSJ0 z4NyYl95I01aVMgjMHRrEPQwYMGj QHWiuFysel6niQ9uBf9+PGNvbCB3 uAR6cO9mEbKcWeX1SSxl C549UiGkuVYvRymkm7dnc7pzrNi6 SuLwDNFxypAgcHaqIOE4y6QfZb11 E3EcwWhhs2NlMbf1qw41 kFNkk9V8vXD3R8QiQCFrozuxkQYb pFjiXD7gVTRywgdpGVPriT1sRXWd A9m7JfIdZjV3TIjbF1Qy nnZ7LLBvqEDgUPZakHWXwY2tpryk d8yndfpzErYhMDLzQWb7FJg8UYCx nWqsFsTiUGK5XxB3QSP8 eWKzjC9lxBqpalkbhI0vOeu+UGh5 j2subSLaJL9euXV4HK66OU05jFPq j6L2zQI9S6ZqSYQzasdw xkrtbJY9MNGmUFUwfN34Sj5isCnl Rq0dBGNkZPR7MDWxqGNaB4LelK7m GsQuNDMvKMGtR0PfnRUh RZuyA871UXylPyR9KXTfudAhD2As FAYykWadZnZ0t5L2Uq5QZM10RF57 DJ85mXMso0C9cMD1H9Hq FYAhqdpvfrrfmSZ1XCDsEMAbmO22 Ez4frJhtAi6vTOXlIGG6TYKipMXp W9PkrE2qIjBfTCIbJAWe C4PidOOuVPbcA900GRnaMrE3VOHi wnKfB4BuUSNuoMhkQxD2v2W4Zv6G Sy36LU79XO69eZQsh2O0 vBP1L7NmHRUybsonompfnWP8EGBb YEGtbL38Fo7guMiuUs4xCXFwCRX8 OBEdrIXpC9GlvS5ePrOu TEXuKZSlD1GscZOjVStpQ117IPhd ZwG7YINniaNlQ0NmFKJmjUgdEsA1 o6P7Ry5WZRaffws7V5Yg PjwvdHI+WI69ISCmOV41pVLcdSBk d2whuWn3MoBxRJVdIPU6sKffLRzi u7DdEOLwP27muYRda8W1 IGN (more content not included)... [facility] Provider Orderson 02-08-2024 Provider Orders [id number] Rad - Other Radiology Report [id number]#1.00[facility] Rad - Other Radiology Report on 12-20-2023 Rad - Other Radiology Report [id number]#1.00[facility] Coding Summaryon 11-30-2023 Coding Summary HTMLBase 64 ChgdskjfDRz3aHl+PGhlYWQ+PE1F GBEkC97mrEFlnW2kN0TYZJtMQapp ARWBJDoPLsKuepLgHG2hbHTcJYFb IC8+QP9yDVPsQtffpSGrj6O5dJW0 L71gvp7vTQvngRU5RDRuVtGzxwys u5gmrFo8JVubBvxsLmKz CXIahR69HDF6aT73Zo31oFXvnHZl q4nmhLd6UnWiKDZfWGN4bJwdBWyl p8CbJMMoG77pfWWsh8C7 CEPyxRgpcOUjFeYkgBF7hZ0aFDoq dudcq3dnzxccTsb7dk20lMEwf0U2 hHI1O8PjnzX0HRKplTSo DfqejMQQqH0jmfhoj2qjicuxNeHv QOJjOXj8ZTu2WPEwaQvtIaIdCK61 ZOZ7WYXbcwOnE3IlLWCr iFmpHsD1g6O6It4BY5GMZswsL7VT TUFSWTwvdGQ+QJ85gi30D0FxCxia Seq5UHEkYKG7kWX6lF3t DERwIVdln6V9iIN8X4RtneDszf8s x8zpRVOkBPqyR77zhXLwm2K3OUZa vDK4SPPweJrdBoDrpT02 Oyc+BMSgcEgxn2AqVcgll0asu2gl dGs5SfokUBUmraMdbXrtRPW6w3Dj Vm0kNNAydNL6pDG1yI2r DtRfRdK7UJdhM328UvZxjCEvQjhm H33tO7SnxLQ+SLFkYtq1FTWjuKvz KT2iI9NsPYXwjsxkpPMu uDkjTM7iYQQteurvKECppH4bGAMj E2m5TgXqXbK1KDeiO6KnOYUwxhbz Rs30sR3hXdPeKfR1NXbi Z2GqhlV7AFHtmJPaTBqlSSK4S55t o6M5OVWiJGAqOFR6aPK9fQ2bcCyu bjogbGVmdDsgdmVydGlj HVrnOPpnS925RAWjiBrcIyMzINsb ZyBEYXRlOiAgMDgvMDYvMjAyNDwv dGQ+BVQlONJ1iBecCZTy aIOdHGylBh8uhPrvxTmpYE2vLEUt qdtcCKDajA1uBODhrLLlmXmkDN9l UQOannlip111MhAvZLV7 XGKgdPCeI2MoyQ7vUbPfJXAhRJSa G4DstUPyOGtlS479JQgdYbA9HXEi xfOfC5ChMPGiwHrcWrM5 m5G0Xa4Zd1PiatdzT1OssUEeJaEk GioxRJp6X2PlDxvhnLR+XS10KQRt IW12HXt6YYN2eGofYClt QTDwB3ShyU3pXvOzYNVnQTGzMer+ PHRhYmxlIHdpZHRoPScxMDAlJyBz wYeoSP1gTl6gXTKlCTQz wKwtdVAmYlOhv9skSPRhLKpuPP8f rWdoY8ApvXD4WYGkq4h2Dr44L06o C5SdcHK+ZYMwyXQ8pCR8 kN0oSiZbDxM9RXukA979ElCmxRYz Mcimo3vsc8frgYg9MhK2UCFkzuWm yPmaQPK0w1YtPp95I41j EYnaDXRhNQVoNSPpGCWtaMlvot0c pW6eYb0+SOZulZD4lPT9gO4aDpYk TfK0JLzxK090ChPtoNHb Bmwub9mar0yxgGs0LvNvWMAvfpTd zNtfTYO9z7ScGs55G3XclUyrj6Cy Udc6pa24xYBrh1H9vTQ3 N7FmQQGpcfwiaJUvuIpaHZ3tBDKv bzxtGAPyuJ5uRLXuL1f3BuHoQrI6 NQvxC0ZecsJ9JBAzeIHs XTLukWAHeO0fjqcuz8klxuanQdYp LLXxFSi8MCt8LASnzNxaHvMqKMB0 NfC4AFK3nMOecP1wfIhm vbevpG4aFcz+ICH5bYTfeKUHQA6c OjwvdGQ+TSRrEMJ2cIojAIspNYEz eT8aMFEkE4g7LoTuGzB9 NUjpS2JceqE8EPBsrPOvYTNocGJX dS3eigtrg6nqlnsaLkBmQGMmANr5 LYt1OCIeuSixLwCzDCO0 SzE4ODU7nLBjuY6ozHqkfybleD9y Oyc+SynrlOhuOKN1TPv3I7KiQrr8 YJEzbYztHJ4lkJKnCFcq Gh6vbCpudSzsKZ4qNMLqdloee776 OnSzs0dmLUKojMTiYClvFIQ9Z75i c6V3UOGjRTSxEDU3sDQ2 lU7vsQvkjzpcvWBduDyiqxOrlAmv ZZjeQEagC254QQKsfFbtXoAfPOx9 Z1NcJbp8VMWipVrrEE3u tEKiFYgwPm2kwFiwwDisCF3bRDHr wqvcw213PhDom9swSMKsgLTvTQap CRN9W63bx6C2ADLxOSDr OGD1sLC3aI5jgWfdkbbvtHHyqKah tnCbaHzvEXfqTActV443OVYfdQgh BvIgxAe7B0WjDit9IHRz kIsfFR4paDYpOShvFm5yvTjgoYut LF6sRBZkyrgra000KdJhw5htXSAa nXOcWMxpORF6Z49bc4W6 DBSmBORdSKD3dIK1dB7doUynwutj oKUxhDolnvWelHrzMDndMCbeZ193 IHRvcDsnPlBhdGllbnQg SQqnYGr3A0OkJzyxrCT+US68QEAu ZU03kFRqdQJbk5cydQn5EyZtZOXb YKJ0jSytQAtsf2QiOAKw B34xyDQft7P0UHJzeGdakICwVsMc qHW1rU0iQUtsgwkpf8zdfuurXvzi y8ejbl29dW00K17gFIra ZWZoQRQcODIxTHSnqImetx0ivM1b Ii8+NQNdkSJ1cOO1sP6zVWLlIsB1 LBxuE587MlTxkUWaIhkj m9btg1beoVh1BdM7QCDchvDqfKwj QPO6t0CqZn13K16cKPweLIDfCEZn ETGmLHEfcZjbob5vvN2p Ii8+XPBnjTY9pLG2oA5sBlKnNxZ2 UNxjR069ScQbiUWxZguyK78xS0Ib dXA+DXRmIba6LGAcoUaf DP4heXAjOXitDx2uIUR5IaBuAePh RYqvQ1CeTOCgituncalrhGE1BVIf YYEtwP21Mi8arGwqEBTo dZKGzJ5eodlsg4iwgjfdQiQoLVUh WBy4MMk3OJZyhYpjHzFzARV4LrC0 XQL5fOXklG9twZofsntz nM1eQ1LyDDDdqokjUq49qZ7oFaCg MsE9WFqyTgf+F0NGW6xPDNIKCJiL GFLDTl96O0TiAlp3FJJx yOfnDT1qhQQgRLwzOs8sgWakbBxw CW9fVWIwaiuwLVZovC4zYEZhkUQx oCskTW7eQIBgirzmq130 NsEtUOO9HLHdlWWhB7FwrO6iYmSm FDPaAVBmH0PqoCSvNCxqB827ZUcg KlB9DKZlvmUvM2DbNPZv yXvjWmJ7u5V0Mn7qNR5fZN2dSSU9 SR61JM65fFJby2T7mLS7Q8KaSPYl lhklhxobkOG6ADRqYAGj kL94kUNgQOwuPl8qx1O7x671YPIa PCKcyM33Zs6abMdrMXVwwYZKzO3n ccemd4clakucKcRbXJOp FFz6WQf9JEEpkKtiTwKdOHL2LaX2 DCK3vGDnrB8crGivxruroJ1cOqb+ ZumqWXGuqgM0D3UjOyu8 YLZhsToqIM9reLXbWMtdOy1rzLux sGovIZ1nYERrjutkUWWruX6nDPBg cRSgyBayMZ6mSESrsvdu d807YbXyRHV4BWShqOXjU0GwuK2i OpYtOCEuNIRtE7OrpJGzHZpxL795 IGsgTiU6DXDkhaKnC9Xw CUEgaCabXpP2u1S9Wd2SWR7BMYO6 Y0ImGsz5ILKjmVqrXL9vsPStBVyx Nc0jaVwkoKpdKB8eZZSr qjkvEADsqY4wPBXxyHQxyLouYK9d RGBrusxfm025DjWbWMW2BXEyyKKz F3GahS7mLnBhOAUrXLSr P9MvyAVhOMhwC111TKubIxO5CNQj qcCqS3VoNSWdpHsfHoC6n4Q6Ox0W UDwvdGQ+AC56tx09D7Mm YysiGyx2KLBnRJF7yOI0sO7kKOTj AWped5O0pZK4N9ZrmqIenz4ln6cm OKDbOAwtH08frVXlc5U6 TGQcoUA4XEDvkOlaIyJqgF31Kmo+ OXBjtBrba7TbYxzhr4yhm6xnxNn4 IjMwJSIgdmFsaWduPSJ0 l8EuAy68J30wOArrCLWhRWPgSSQl VIFpcGlnwj1hiH5zMc5+PGNvbCB3 kFT5xP4xRzQzKtF6QKnu L821GfAibJUdEslnf8uvz7asdLb2 BhFtCNQjnoYvhWkyXRH6s3YgXl74 L9SrhApqu9OhWuz3vr58 iMZbr6B7qGZ4Y7CrOCBrkkyokAXq tTdmRO5kIUMdaxdnAKOykO3rEKAo E7e7UmEiMxJ9YOnhU8Jg glU2QNAkeZAdVZVdnDPBsX0uqwmt z2luriqlMqDgNRGqKUl6VYk3GGCs yVutCwSyDZK0WhO6PTP5 rOQznO2waEfdpqtyoV2vNtl+UGh5 f6dpcHTvZC4tkPO3XU11DX29jAQx t7C9qTP3H5CoOBMzejkf eqmghLM2OARiAYBcvQ06Rc3btAqh Kp8hHIWbAUO8TJSfsJSfB7LiiF1i LyNfVUDjIDMzC3IlxQSi BPkoV997PAmpClV4QFMjhvKpV0Tb RAZcbUqnAwA4z4I2Kp3EWK59OU35 PJ14tSJfe2B6uDC5Q9Xj OIQhreakzxvteKJ4UWMcLKMwwW63 Vv8cbTnhYl7dZRFyQLP2XBBfcGMy Z3FffQ4yVhJgCRBqQEOe J8LjiQArKRolS647JXosYxW4NGXm bkYoC0TnFTAtbZjfLtZ8u3X4Yz1D Fx48ZY75TP97oVLev4W4 rPU3U5RcIELdnrxcgkozsJO5CZKz RAPyiX42Ua4xkEdgKm4uLMSkSSP1 AJKfdVVyI3XdsL5rVjTq CYDyDIXaK0IhuATvVNnfK196ZDwm KhZ3AXWdpcNtE4ReGTCqgGjsLiD2 p2K0Ak8WVKjegqa5F7Wq PjwvdHI+TB80PEWrEX60dLIohWJp p1ekgAv5McUbOEFdODQ9jTtkKXtp v8CyRYRnV88uhOBcl7E2 IGN (more content not included)... [facility] Rad - Other Radiology Report on 11-25-2023 Rad - Other Radiology Report [id number] Normal [facility] C Urineon 11-12-2023 C Urine Urine Culture [...] S <=4 Verified Tri/Sulf R >2/[address] [facility] 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: Performed By: #### 6 [id number], [id number], [id number] ####[facility] (DEFAULT)[address] [place] [address] ED Clinical Summaryon 2023 ED Clinical Summary [facility] ? Ur[facility] Care [address] [place] [address] Clinical Summary PERSON INFORMATION Name: FLAQUITA ROBERTSON Age: 68 Years Sex: FEMALE : 1955 MRN: Acct#: Visit Reason: UC - Dysuria; URINARY FREQUENCY/PAIN, FLANK/PELVIC PAIN Arrival: 11/10/2023 19:27:17 Discharge: 11/10/2023 20:35:00 LOS: 000 01:08 Check In: 11/10/2023 19:27:17 Checkout: 11/10/2023 20:35:00 Address: [address] [place] [address] PCP: NICOLE PETERS DO PROVIDER INFORMATION Provider Role Assigned Unassigned Ashlee FRANCELisbeth ED Nurse 11/10/2023 19:29:13 Patricio Moser PA-C [...] EDUCATION INFORMATION Instructions: Urinary Tract Infection, Adult, [id number]-[id number] Follow-Up: With: Address: When: NICOLE PETERS [address] [place] [address] Business (1) Within 3 to 5 days DIAGNOSIS: UTI (urinary tract infection) Patient Understands: Yes - Patient/family/caregiver verbalizes understanding of instructions given Comment: [facility] ED Patient Summaryon 024 ED Patient Summary [facility] ? Urgent Care [address] [place] [address] PATIENT DISCHARGE INSTRUCTIONS Patient Information Name: FLAQUITA ROBERTSON Age: 68 Years Date of : 1955 Reason For Visit: UC - Dysuria; URINARY FREQUENCY/PAIN, FLANK/PELVIC PAIN Arrival Time: 11/10/2023 19:27:17 Primary Care Physician: NICOLE PETERS DO Attending Physician: Patricio Moser PA-C Comment: Patient Education With: Address: When: NICOLE PETERS [facility] [place] [address] Business (1) Within 3 to 5 days [...] these instructions at home: Medicines ? Take cglt-vew-pwuvsye and prescription medicines only as told by [...] provider. Document Revised: 11/22/2020 Document Reviewed: 11/22/2020 [employer] Patient Education ? 2022 FTRANS. Medication Information: The exam and treatment you received today in the [facility] Emergency Department were for an urgent problem and are not intended as complete care. It is important for you to follow up with a doctor, nurse practitioner, or physician?s financial sales assistant for ongoing care. If your symptoms become worse or you do not improve as expected and you are unable to reach your usual health care provider, you should return to the Emergency Depa (more content not included)... [facility] UA [id number] 11-10-2023 [address]A Bacteria 1+ [facility] 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: Order Comment: Urina lysis Microscopic order added on by [employer] Rules system. Performed By: #### 6 [id number], [id number], [id number] ####[facility] (DEFAULT)[address] [place] [address] UA Mucous 1+ [facility] 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: Order Comment: Urina lysis Microscopic order added on by [employer] Rules system. Performed By: #### 6 [id number], [id number], [id number] ####[facility] (DEFAULT)[address] [place] [address] UA RBC >100 [facility] 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: Order Comment: Urina lysis Microscopic order added on by [employer] Rules system. Performed By: #### 6 [id number], [id number], [id number] ####[facility] (DEFAULT)[address] [place] [address] E[address] Few [facility] 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: Order Comment: Urina lysis Microscopic order added on by [employer] Rules system. Performed By: #### 6 [id number], [id number], [id number] ####[facility] (DEFAULT)[address] [place] [address] UA WBC >100 [facility] 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: Order Comment: Urina lysis Microscopic order added on by [employer] Rules system. Performed By: #### 6 [id number], [id number], [id number] ####[facility] (DEFAULT)[address] [place] [address] UA w Culture if Ind Standard on 11-10-[address] [facility] 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: Performed By: #### 6 [id number], [id number], [id number] ####[facility] (DEFAULT)[address] [place] [address] Color (U) Yellow [facility] 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: Performed By: #### 6 [id number], [id number], [id number] ####[facility] (DEFAULT)[address] [place] [address] Culture? Indicated Invalid Interpretation Code [facility] Comment on above: Result Comment: Resu lt created by rule GL_MAGR_ADD_UA_CULT Result created by rule GL_MAGR_ADD_UA_CULT Result created by rule GL_MAGR_ADD_UA_CULT Performed By: #### 6 [id number], [id number], [id number] ####[facility] (DEFAULT)[address] [place] [address] Glucose (U) [Mass/Vol] Negative [facility] Comment on above: Performed By: #### 6 [id number], [id number], [id number] ####[facility] (DEFAULT)[address] [place] [address]220[address] Ketones Ql (U) 15 Normal [facility] Comment on above: Performed By: #### 6 [id number], [id number], [id number] ####[facility] (DEFAULT)[address] [place] [address] Micro? Indicated Invalid Interpretation Code [facility] Comment on above: Result Comment: Resu lt created by rule GL_MAGR_ADD_UA_MICRO Performed By: #### 6 [id number], [id number], [id number] ####[facility] (DEFAULT)[address] [place] [address] UA Bilirubin Negative Normal [facility] Comment on above: Performed By: #### 6 [id number], [id number], [id number] ####[facility] (DEFAULT)[address] [place] [address]120 UA Blood LARGE Abnormal NEGATIVE [facility] Comment on above: Performed By: #### 6 404794, [id number], [id number] ####[facility] (DEFAULT)[address] [place] [address]15[address] UA Clarity CLOUDY Abnormal CLEAR [facility] Comment on above: Performed By: #### 6 [id number], [id number], [id number] ####[facility] (DEFAULT)[address] [place] [address] 09909 UA Leuk Est MODERATE Abnormal NEGATIVE [facility] Comment on above: Performed By: #### 6 [id number], [id number], [id number] ####[facility] (DEFAULT)[address] [place] [address] UA Nitrite Positive Abnormal NEGATIVE [facility] Comment on above: Performed By: #### 6 [id number], [id number], [id number] ####[facility] (DEFAULT)[address] [place] [address]9520 UA pH 6.0 Normal 5-8 [facility] Comment on above: Performed By: #### 6 [id number], [id number], [id number] ####[facility] (DEFAULT)[address] [place] [address] UA Protein 100 Abnormal NEGATIVE [facility] Comment on above: Performed By: #### 6 [id number], [id number], [id number] ####[facility] (DEFAULT)[address] [place] [address] UA Spec Grav >=1.030 Normal 1.001-1.03 5 [facility] Comment on above: Performed By: #### 6 [id number], [id number], [id number] ####[facility] (DEFAULT)[address] [place] [address] UA Urobilinogen 0.2 mg/dL Normal 0.2-1.0 [facility] Comment on above: Performed By: #### 6 [id number], [id number], [id number] ####[facility] (DEFAULT)[address] [place] [address]1252 Urine Source Clean Catch Normal [facility] Comment on above: Performed By: #### 6 [id number], [id number], [id number] ####[facility] (DEFAULT)[address] [place] [address] Urgent Care Note- Provideron 11-10-2023 Urgent Care [...] Social History Medical history: Resolved Asthma, extrinsic ([id number]): Resolved. Osteoporosis (248158666): Resolved. Fibroid, uterine ([id number]): Resolved. Abnormal weight gain (539573580): Resolved. Viral wart on right thumb (1811810790): Resolved. Sternoclavicular joint strain (848.41): Resolved. Migraine (89923252): Resolved. (254313540): Resolved. (901105735): Resolved. Acute maxillary sinusitis (659841152): Resolved. 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 Rectal bleeding (995099949): Resolved. Iron deficiency (89832366): Resolved. Antral gastritis (1247061): Resolved. Esophagitis, reflux (531840334): Resolved. Hemorrhoids (110135974): Resolved.. Surgical history: MRI of brain (6359268617) on 06/02/2021 at 65 Years. Colonoscopy (674894742) on 04/07/2021 at 65 Years. EGD - Esophagogastroduodenoscopy (5478097912) on 04/07/2021 at 65 Years. Removal of mole of skin by excision (331094666) in the month of 11/2020 at 65 Years. Excision of skin carcinoma (437367022) in the month of 03/2020 at 64 Years. Mammogram - screening (307063468) on 02/08/2020 at 64 Years. Bone density scan (521148195) on 05/30/2018 at 62 Years. Comments: 06/02/2018 15:04 Angélica Cole LPN report scanned Mammogram - screening (333626465) on 01/14/2018 at 62 Years. Comments: 01/17/2018 15:38 Angélica Mcrae LPN WNL Colonoscopy ([id number]) on 06/08/2017 at 61 Years. Comments: 06/10/2017 8:23 Angélica Cole LPN normal Bone density scan (456470913) on 12/10/2015 at 60 Years. Comments: 01/14/2016 7:45 EDT - Allegra Rosado Osteopenia Colonoscopy (511745019) on 06/01/2011 at 55 Years. Comments: 08/13/2015 12:16 EDT - Miguelina Patel normal Cardiac catheterization (25140146) in 2007 at 52 Years. Colonoscopy (341809713) in 2006 at 51 Years. Appendectomy (993101680) in 1978 at 23 Years. Total hysterectomy (123092471).. Family history: Primary malignant neoplasm of colon Father Grandparent Diabetes mellitus type 2 Father Osteoporosis Mother Depression Mother CVA - Cerebrovascular accident Grandparent Coronary artery disease Father Alzheimer disease Grandparent Dementia.... Mother Hypertension.... Mother . 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 Normal [facility] [place] 024 Urgent Care Record [facility] ? Urgent Care [address] [place] [address] PATIENT DISCHARGE INSTRUCTIONS Patient Information Name: FLAQUITA ROBERTSON Age: 68 Years Date of : 1955 Reason For Visit: UC - Dysuria; URINARY FREQUENCY/PAIN, FLANK/PELVIC PAIN Arrival Time: 11/10/2023 19:27:17 Primary Care Physician: NICOLE PETERS DO Attending Physician: Patricio Moser PA-C Comment: Visit Diagnosis: Diagnoses This Visit UC - Dysuria ([id number]) UTI (urinary tract infection) (N39.0) If you [...] legal documents With: Address: When: NICOLE PETERS [address] [place] [address] Business (1) Within 3 to 5 days Medication Information: The exam and treatment you received today in the [facility] were for an urgent problem and are not intended as complete care. It is important for you to follow up with a doctor, nurse practitioner, or physician?s financial sales assistant for ongoing care. If your symptoms [...] so we can reach you if necessary. [facility] has provided you with a complete list of medications post discharge. Please inform your roll cutter/provider of your visit and for further instruction on these medications. Any specific questions regarding your chronic medications and dosages should be discussed with your primary care physician(s) and/or pharmacist. New Medications [id number], [address], [place] [id number], [phone] nitrofurantoin (Macrobid 100 mg oral capsule) 1 [...] apnea Patient Education (more content not included)... [facility] Coding Summaryon 09-30-2023 Coding Summary HTMLBase 64 UkxqxlkpZEv7dOu+PGhlYWQ+PE1F EYLdC85sfSGdgR0lO8IKMKrIWjua VOXLLMxENpKtfrIxFU9ipWXsVDQt IC8+PG5oIMRuDhhncIDbt0C8fWR4 E52ddi2pAKqcnKB8BKAiTiVqzkwb i7uqyMv5QZszOikbRyIg JRXprX43LVD3kL20Dk90fLRdsBLk e7lwmOf1ZaQnJOMuDFG6tLezCEyw x8ZjJJMxT68iwPHsw1N5 XYKolOxalXIgTcTzfGD7nM0rQZgw hmoqr9wnyuriTuu7ij29sJXcm6U1 dZC6X2DmjbY2VJHbrDFn JjwapEQHlY1hmbhvm8dmoeoiLtBt MJPmVBo2KQy0NAAhiGenLsCyQE62 AIN0ECKvaeBdH7TlEFQw lHzhYjB9r8X3Fu6DK0UCJwfzP1GF TUFSWTwvdGQ+TJ31qf07W4EnVwzq Mpf8ELYdPBH3dMW5vT2h OSCdLAjye2U5ePB4K9JwclNmrq1s h9qgDYQyBVpnM12vzNTtn5V6NNQg vOC9VFJncPrlSoPwlU90 Oyc+VHOdbPhky6DqRkpir7bob9ko jZx2SbxgHGHbjcQkvGabNZB7d1Sq Lu1iVWBqaJZ0bGV9gH6k SaPpCmS6OOdmV144MpDqeONwIcdy W30vD7IvfQD+VHQqInw5ZLNurSbi HP4dK5OhITLynnpbaRDf uQmoTT8yLMCofskvCUSdzZ1uUPDr U9j3XoDxWlV7BGnsD6ZzMWVuahxj Qn73zZ0gKkYjQwG4LMvd F3QcijF7TKIykSMkJNdjOGY2I43x g1V2DJCyTPQkRIT0yEP5nR0rqChr bjogbGVmdDsgdmVydGlj SPbkIKusF341ACCvfUnnBaLrCTnh ZyBEYXRlOiAgMDYvMDYvMjAyNDwv dGQ+NKBrRUR8zMnqJOVr vKQxNKnvIs4nyFvkdIinMR8oNPRz pqifRORagC4pETEjyMAmySvjOR6k WJLmphlfz385ArLdTOM0 ZAToqXIuX3JpxN2jVoMrMBTgDTXa V6GitZYdMCldH844AQypUqY7CSOu keUuR2YzCDZjoRjoToT5 q2K8Ce3Jt2WuwdydG1UiiKUaZpJq EslsLUc6H4JgFgybkOK+ZD59OLIc ID68PVv9LCS5xHljACan TFRaV5KilI4kUdZnWZGdNALsFcz+ PHRhYmxlIHdpZHRoPScxMDAlJyBz lMzuHR3tIv7uBGLkNCZo sPoifWAfOnGtq9rsRTBcDEsxQF6g zFruG8TdhCZ8MJQan2h8Jv52L68j Y4IhpED+LOAshLH7vDY0 yP5kLeEqTmP1YUeqA922YgWbzWYf Niiyw0fxj8vyzPa0YpF6VICupvJw eHsjWEL6m5FhDy83M21p HFchGUMrACZvWFYkRWAezUgkyv6a gM0wIs7+OGYbjYI1lYH3tB2aZcWv JsH5LLnzB344DlArxMIo Gtjem6tlz4eqfEn9QuTfNAUzyjVx nJevPIK0h7FfBu62V3BqtSatg8Ug Uzu4bp50cJKkw2S8pYG9 Z8SsFWKuqhimfFEtmOjbIY6kVGPa qvozXNPzaP0gQBOwH5d5QaWvItZ9 ZNbpX3SzcpK1LPXnpUTr MKVyfDUCqP6vtpjsl5pxqgqfInGr TARpBLl8GGf5ZPZtqErfCyCvMNB3 CxP3FMV3mBUsaH5dnLfq vonufX5pBjx+GBO5bNYjfJDGOS3x OjwvdGQ+CSMnIOV0uIsyIOwuKPTx iE2eCCDsN3c0XdQfNyI3 ULnlG3VeuvW9VPLukJSzNOCjqCNJ jU7uuyvky2bbvsvwSdIcDBOwDHy2 TUj4BTGoxSuhCmMnGDE7 KhS5IBR7zQDakD5utWgkdvtuyL2s Oyc+QjbagPedPDZ3UVy0K5VjBaa8 NEXfcJyfVL4xlUKcFAwt We1isXqciCnfLS5qTDYomvqoc650 MuRev5rsILDpvBYcIYjeOED3E26z o2N2ZOPiJLJwOUO1rSS3 uS9ggIlumpjnhYFqeAglntBbpVis SBkfCNccS083FBOczNrgTbXuLBo3 A8VwSyg0IWDpqKpuAZ6m zOFmRVifDk9hbSuxjPtfYR5wGMTv qydhm410WwKka3rlKBXojNBmKHbi GHO7X53sq1K7TUQnNITj YVR5aWS3mA6bvHgrpctenYAekLlr jlGeuSqnUOvtHVtxI382YJSwlDnb MgIkhUb6A2MnNun6RMHs pOxkVN5swJMgHPjdAz6psUjoqVhe KW1jWMRsfkuux780OvYkn6skOWBq iKMlGQwhBLB8H45vu1U3 SXQgXUBtFNU2wWE6wK7mrPuptcqm rVYqzLqxfhIxzFtmEKspOQvoL513 IHRvcDsnPlBhdGllbnQg JJtyEIj9L7OyQfmoaKO+TA68MWQf WM91eNQjgRKvo6rgrCo9JxPeLUAz CUX2vWivURifq7OpAFMb J60cvBIyj8S3PWYhpNoogRCkNoEx aHD1kJ8eLYufoponr8kxxwdkTbvx l9ezmt69rM60T90wVDkl SXQmIEAlLKWtCFUtaHutma0vxO4y Ii8+VOKbiMU9gOT8nZ5iGOBuLcM7 RMxkR321ReWecIUmMopq a3zbu2vnkWd2HaD1TBOlmdDmnDbc RRE8e6QrWu12W76fIHfgMWPqGWEm XVAzPQOyrAnajj6skS2r Ii8+FSZlvQQ1mVT1nK0iQsPeZlM7 JZjqH112HaRdcJTuUnaxP94uT0Uh dXA+DIIhTni0BNHfuTzj ZQ4huLDoQZypHs6rVNV0RtQyHgMo NMtfD4ExGZYfigxlyjimkZU6FPNx AIXwqV31Om4tzDmjPJPh kCGBkB9gexfjr9yxvhblDzFxADIw MKi0LXo0GUAklGwbQyUrTGQ6FfI0 KOP9oVGeeT2lrMobtgmw lH6eV5HcDYCbngecUh85kK7yHdBg VbB1GNlkVmz+P1WFD2lECTKDIBjW NRYWWp87M5OgXpu2IRSk kAttTP8deLPlBRtvJh5hxHjbkThz TD5zAXUwuniaAFOuxV1jKXUtoOSg eIluWZ4jNBUsaxegc815 IdNoTML4EOKchAZyX1NisT8oOuUl DDOoXWFlN4YlrPPvWGjhI038HShr QfQ7KBBlisBdO1NjNCIo cZmiMqL4a6R3Vq0gSV3sWZ5fFUM6 WP94FB29kQIfz4H4oOE5A0SeTQZq yyhdjagcmDA0PWYoFHZq lI22vPBuZTvuVd8yb7K2l735CXSq YWIroX19Rk7ceGplITLyeFFLqG4q geqlu2wfskmcEhIcRRFf RCy0SPq3TNPrqPaaBwOuFYM5RtJ5 TJQ4kBJmfQ9moSxgupxjgY3xMnk+ RuzyTJWiziG1P2XlFcn1 QPFnhAqdQN9mzSJwEJxrTu0xpBiq aSujSA5iCOQkorshEXJtiU1dDKKh zAWmoXviNB8gYGEgyasf t285PdGtWMW5BZAegTNmB8UvqI4n NxKvNMXbMLObK1JdiCZuJOelD319 PSidOwB1HMFhrnWaA5Ba HJHdkAjrPjF0q8G6Vg5TTT2ZTFC0 Z9FaGov3NTLcoKpzNX0scBZyIAnl Ap9leSzacCbyEV9wKEGc xumdBNBnpS6aENKfoWHlhKxrOZ3j OESxzwcca107HiEgWYS5WNMyhDUp O1VkxQ7zGdOrOBMrLSJa G4JbvDEwAFhuO019ENdzYdZ2MMJw boCxL3RfFDRmuZqdFpW3b5W8Dk7A UDwvdGQ+KJ64vo16J0Qv KwvtPai7TIWlXYW8nDZ8mG7xDLBr TFpsm5B7qPJ5W3QtccAzhz2hs9em DHEaRHsgU25eeHHih9N9 WZFrvJH5LRFfvWgvDxDuuA42Ngc+ ONExaQoou2LkBsqld7fcu9eteNr9 IjMwJSIgdmFsaWduPSJ0 o1XqPu57A59aJKyuTSAgTBCeIKZm VTJqxWyjsv0lnM3wKv1+PGNvbCB3 vKJ3gA5aMcGlZtO3WMqz J250LpMccMVlSenef6dkb8viaJj1 TxQpSCIzcjLljBnwYHU1a6JeLq63 X8AbrXdbx0ItOgk4bo50 eRYuo3Q0fMQ6H5SaFWSwfmljvSRo tTsdPP4tFHCkukfbQZBkdW0rFUIn M9z3CrVjMwL9MJrvA8Xn zoB0UMZvyEXtPKQzzHBQvX2fcuya z4qvwlduHwSjNVJtZDz1SSz4JSNn oPlyHuNmGSX4XyR7JZE5 yILtdW9vcOphqerblC4oHqt+UGh5 y5ybrDMfAH8ohTI4YT61PJ95qWPf f4S8aUA3Y6OvNENyhtnv mpunfHS6USTxECVjrV51Nc3oiTvj Td4aYWIaATD4TJTcfRLhF8BnpI3q XkCyXSOePJCfL8WgvWWj ERsrN540JPwzRgP2ZERtttIfU1Ln PKMowTqrKsR5l9C2Ns3WCD53CF10 BT46qBUbv3A8qIO5M9Wu JVRsfppowoabzPI8GOPrOYHceJ02 Lr8chPecZp4jAECpELR6HHUfcQLc Y7WylC3pWfRtAQPmJMEs G9UdnAQvTBuxV950XRjqRoO0WOIv zgAbM5DvIGRxuLdeEkC8p0J3Wn6C Oq36AW77PA21uHJov7H6 lZU7Z6LfZPLsjxmmhcntnIF5EPKf UIYrnD44Oi7nxPqzMj8bXXXoYDL6 GVAbbNIpS1OhbC4qCuJq VDLpQMVtV4TupVHpIGlaN424PCaw MaJ3BMKcoxQeK5QkUHZweIqkNoP8 d3N9Sq5MSBairkk0L5Mq PjwvdHI+RJ48WMNiCJ53yJFacIMb x4cwtMd8HbXvQRRlLRY8uBwgPJfr g1OgVPRgF34ugBPpt8M4 IGN (more content not included)... [facility] Reminder Messageson 09-28-19 24 Reminder Messages - From: NICOLE PETERS DO To: [facility] Clinical Pool ([facility]); Sent: 09/27/2023 14:04:18 EDT ! Show up: 09/27/2023 14:04:18 EDT Subject: Results Follow Up Actions: Call the patient with result(s) Due Date/Time: 09/28/2023 14:04:00 EDT Reminder Comments: looks good ...not gout Results: Date Result Name Value Ref Range 09/27/2023 11:20 Uric Acid 5.1 mg/dL (2.6 - 8.0) pt notified of results [facility] Uric Acidon 09-27-2023 Urate [Mass/Vol] 5.1 mg/dL Normal 2.6-8.0 [facility] Comment on above: Performed By: #### [id number] ####[facility] (DEFAULT)[address] [place] [address] Documentationon 08-25-2023 Documentation [id number] Ling Robertson 1955 F Date Provider Department Center 08/25/2023 JuanjoseCRISTÓBAL GARCIA [facility] Anthony Heal No family history on file Normal [facility] Controlled Substances Agreem entson 06-29-2023 Controlled Substances Agreements [id number] [facility] Coding Summaryon 05-11-2023 Coding Summary HTMLBase 64 OxlorjfcEQm2gAr+PGhlYWQ+PE1F DTNmG52tpZNaoO2vI6WAQTgGBtmi ROYQPFeRHaWblsAxVT4nmBTaYGKa IC8+FE2aFTIxKtjmyRGlc1B2jEW3 N73axn3kZWskmSJ4YLIsDkAjklyx f4tzdDx5XRlpLkhjZrKt XSBpsH66HCW6kH57Ny24zZBrcTRq c2hdmIx4SxXrJITdCTJ9aXsaOOlm y4QpZUGyR31vqJIol7C9 WDUrkYfhxSIwUyYbxRE0iP0fDCkz pquon0zycffjLeq4sm61hAYuq2J4 cHJ4G3CiqvY0LLHtvFDe VmzmaXQSmI8ebfmud4szxvvwAaYg AYAtOLb2ZZm6YRYxgGkkZpKmMY32 UCA2AUUgcxVlI5DcDJTr eNtsWhR9n5I0Jy2YR1YXXbyqQ0VE TUFSWTwvdGQ+WV16qj94V3DqMiwf Rqk2XLAcFBH1nLD6mE0f OXKvJYmbo2W1nHR9K2MqrrXqsw5h i3cfYEWyVEfvU22bdZWmc6C0FBNt xFD3MUNpaBqsExYmeN22 Oyc+HRXqrZiom0LiYzqmp7nib1cu hSd2XcvlDAPkycIitYqnMBL2b7Eu Ot1eISNgzEF0kSH4zN8p UeIfHoK5JIecP206DaYzlMMoOsdj W48aL1XehKA+OQEhBpx5HNBgtPqm TS2xK7MmJIIqlpspuGSo nVzcFP5bBLXuygddVRFmkN8iHKFm H3v7RsJqFtK6BLyxK1KtNSNouzoz Rg54cW5tVqXlAeL2ULny O9YtxrZ0TKMfuHKlTSuiJIW9J88d j9L0YAWpACUfNAC3dPK4eF2tpIjk bjogbGVmdDsgdmVydGlj FKouXNwcI111EJVkmJyvJhVeNLee ZyBEYXRlOiAgMDEvMTYvMjAyNDwv dGQ+XOZfHWW3tJfhHFQj wMYfZAjcBi1esDrzaVzfLU4gSCWl pkpxQXDfnN1gRTMfrRNbqOkkZW7k JEJtxyyed003DbWsGNN2 UZKkeAIeZ8MuuL3rDtQyUIFqPHEl H8XlbUCvNEepL206UHhqNrN8SXMz leEoJ7GeVGCxvQidZmC4 r3G4Jh2Av1DsvpqcD9DihXXpBlBb KiwaLMq6Z0BrBkvpvTD+TY17PTEx SD54DJp9UBT5rRvuLJch MFIhX9KdrF0qTiTuASDjAZJrFba+ PHRhYmxlIHdpZHRoPScxMDAlJyBz jYzkLF2kMa6uAJWgZKOi uAccaDMiOlAix0zbONVvTZnzQO6y aHosG5MwbCJ4HIHjk6v6Wm42K86z D5MjwRF+THArfOS7kEF2 lE7bAcIxCrE6DHinA733QsQfmUPm Mukok5bzy0xugOt1LvO4KOSjlmJn oMaoYFN1g7TuMf35L37g FBcdTQIqOFUxOUYcNPTarQnwuu4h eI5fIb4+SHByfVD2dAU8qQ8mNqRp RqS7HGjqS103HvJddGIf Ecagz0iss1tquDr7GbWlYDHsjcGc uDljYKW4f8DyLh75I5JdzUqiu4Bs Tge5gm37cLJbj5J9kMI6 F0LjNLUhvkiqeHAspTqpAN0bGCMn dhozPWKktM8eHDPdZ9v3HiFfVmG4 NAreN3GyvwR9YYTqmJFd ORDjoDAXgI4yheqdo9fzqtnhUlUe CRFhTWa8PYx9DDJcmSvaHxLpUDR2 QiO0IIP8nMDiaY8vtHgh kbnveA2zWey+GMW7rFOafOSYMQ0u OjwvdGQ+HWHaUVB9sHcrFJwcAZUo gG8jFVKcO1e6JwOtPwR9 VAfuB4LigvY9QQIavTCbYIGduPAU tD0ocwnvi2lrsuojMbMtWUKaBIf8 SQd6ENKbyPprAwVxCMB4 MtW6BNU9xNErxT3dxEoapwzfgO3l Oyc+NpnvwPyiEBY3GZk9A4CbGeq5 ZLHcrTwwEK4xeBGcNUxr Yc3fcIkdqYloMN7rQLLtgwyxt086 WvWuq6apPIMtzUHyPBqhDWO4K11g f4V6BFLzGEZdZGB5vCY0 iR3vaKgtizghtOBzkOtpzkRlnZro XAorZAevA772XEHprMpqFgMdUHm7 Z2McMkb7RIWngTmqJY5b wWJqXLobTo4dxWnzgTldHR8nZMWc dhqzx648XgIhg4kfNPBpeFWbZGpm KCQ1I45ho5Y2UXBaFIYj AYB4dER2tT9zqTmgusrafQIweKka eiQtgLlyGMmxVDuiB895GIVxgBzo SrYyzJh2K2KjWgg5CFPm vHgaLE5wcPNfRJijBe8tyFmjxCpz MV0nHKXfnvedo192TaSxv3tdYTVn gCOpUPnwNJF8O67fr2X9 JQDnCOSnFNA8kJK0tX6uhFsithfr uTMdzOgkguDapRfuSWtpEKrxY163 IHRvcDsnPlBhdGllbnQg FSxkNPd3W5GtBktvqLH+WY19EXEy YA05qSFsyDBgl1sheXc2ZdIrJYLy WRC7yLebZVihn3RuFVEf I56scEFlh1K2MQUghRoibWHgHeBe jOW0bM0yWCawvngqy4zxbzzjJlnb d4jcdf50mM38M31fBWlz LXLoGOHzFJXaVNDunZithg5vfJ4x Ii8+WYOxxBV9vWK2bI4kJHScXlQ7 BVioF595BjFyiNEsUybs k6rob4avrFd1WhY2DXGxhlKmwTpb RBC1l8IsWh45K98zIXkoEKUbIXJn EPTjDMMrbFoqhh2ngI7y Ii8+FMKgxRX3fHJ5fY7zAgTeKwZ6 SKcgS305HePirQRjOybwM20hD6Hl dXA+USVaCwu1JZAglFgx FG5vnYPrCWxgOx1jMJD0NyOsSaXs ZKtuK9DfBVYfzvepzaolwSR6VORd XSZpgT21Nm8ntPbbTOFe gMXYcI3irngzh1nmxycuCxGaAFUs SEq0WEr2IIJvhMmlFxRsHQQ4OzD8 DQE0oLUvfT8mgSxdwpfl jG5xC7TqSNHbqdywRf83pS2uVzTd EsV3SMkdRfd+G9KVS5xWFTKZEVnQ JOEIMr02A9LcNmv8VFFf rBfvFZ8syDTdALbhVp9khMgrjZzs EI5jBFLdqnlnMOFptT7sASUynPKj sDqxSM6fLOLpdrapx920 MvKvUJH7JZLqnXWbX3NstT9oAyPc DPPxLURxG4RvtGUgIHzuU839MJhw CrT9XRGrudJsP7LoEHHo tLlbQsR8s9W6Al0jZU9kDO6nXWP6 UB10ZS93zAOfa6I9oLI3V1TnTWCz psxcbvygjMM1PBKcEBGf dN35eQGvMZbpAl8hq8D5d453MDUr KXJslM61Pm7noObzKEGxvHGEwO8y xahoe4fxxcapQmZiLWYn BEc3RJn7ZVSbjTwlPbUpSJR1MfI3 WNX4pTUjvD3dzPvmkvdojN7pAis+ VhekLJDpokC0L2BqFxb1 ONFquZmaMH0jfVBoMKriXk4mcIqv eAznZM4eVSRvmxdpCKLjyV3dYIXo uLBpfLpsXH4rSSNstpso n577TnYpRCZ2COJlqANtA1RpoX8b ZrQgDBFqHRImO5DjxRTaQYevD954 AXyxGhD4ZORxsqDbE1Oj RTVanQjsIyT8a8X0Or5CQW6OEBR9 N2NeMjj2PSGobSrnFK8yxYXpYWgr Rb9tiQjfqOchQP9rXBFt yblsJSSdqA3hTRHbuNYqoOfuOR3t ZEBigdbxy578FbLnZQM6BYRtgBUs G8FbgA0xBrEuWMCjGATz N9MccEXbSUmmW021CUztUpF1HXNe mqNqD9UaQZUziNluDeO5h5X5Vn6J UDwvdGQ+FE07md52I5Ze UzeuMsv7CVAyJVK7rMT9uM8dJTKm AVrji7C1iNO5M3OkhfJqfc9cf0us SRGwJVetU04kmPFcs7B9 EPBjjBR3APPgqFfjQuVxlK99Jrf+ UREywOjxc5OmHnrrg8nly6jcaBl2 IjMwJSIgdmFsaWduPSJ0 g4ZsZg31Z01wKRngFRMiOKBfFURj DKNruRflvq6byX1xHa0+PGNvbCB3 kDG8aK6dSiUeBxN7MLri F827JtVwuMKyCtqdx4lxm1xmvPm6 UiXyTKWwftQwlGeaKAM5n8GeZg47 R0AfsIbtk2AeNbo2ax32 nPPyc8V7yRD0X1FlRJByfofdvCVa wDmaRB8dCATjorpsLCWzoW2lBMKw N1k6MxUkFbL1VSdgH4Vg pnL3QWZtoJTmUQUjoFRDjK7axwxz i8vkuqxhUyLyDWYxMHq0AYf3OPTv jRwoOuZrRID2BoW2HZD1 yHNyyN1eiHftthndwD9aHqh+UGh5 u3tsxIHwGY4rgLY3UZ09HL76rJYf h2A2mBC5A4QuEPZscznz haijkPL2MSIvBMBqtW21Rs6ydCxg Cd3oLUMcEJO2NSHivHIkA4DetV4i ByLqZYVrZWQyD1DxePAc SNigU357FJfyZmD9ALDfdtVmN6Qk CERmiLpfTbP0p4Y6Da2EEE08VG57 CV68dMIcu1J3pRN1Y5Ue JULijycavhoajAN5QNSdFWRpqT08 Rn2feEbdMl4kIZLqYPK3LBBzhEUb C1GbcB6cLaSrQSWcOZIg S6ImwKHtFZwyY231URguWvL5JFSm uuJkN6NbYQVzfAbwWoP1n6W4Fy2X Ob49HK10ON88iSKrv7U5 bMS6H0PnIGJpdmtehijuhJQ9IHDc KKTplI07Fw5ghWnsUv0yMLRtYBF8 GSFpmTAhK0DbyA7pQqWf UETvDYSvS5QsjMFlPXywE011GNxe GhI6ZIXgdjWeB6CeNZPhgRgdDeS1 l6V5Zy0VVPwsuna2H5Zb PjwvdHI+BI63PYCaAA40gYPbuIDn f4chuZi4DdAuYDQdQYH3yEoySAos s1MjMNHhL55pbYUya3C2 IGN (more content not included)... Normal [facility] Reminder Messageson 05-11-19 24 Reminder Messages - From: NICOLE PETERS DO To: [facility] Clinical [employer] ([facility] [place] Sent: 05/05/2023 16:39:25 EST ! Show up: 05/05/2023 16:39:25 EST Subject: Results Follow Up Actions: Call the ordering provider with results Due Date/Time: 05/06/2023 16:38:00 EST Reminder Comments: some osteopenia not osteoporosis yet Results: Date Result Type Result Name 05/05/2023 15:48 Radiology BD Bone Density DEXA Study LVM to return call to office Patient called and notified of results. Left VM. [facility] Reminder Messageson 05-06-19 24 Reminder Messages - From: NICOLE PETERS DO To: [facility] Clinical [employer] ([facility]); Sent: 05/06/2023 13:54:58 EST ! Show up: 05/06/2023 13:54:58 EST Subject: Results Follow Up Actions: Call the patient with result(s) Due Date/Time: 05/07/2023 13:54:00 EST Reminder Comments: Birads 1...totally normal mammo recheck 1 year Results: Date Result Type Result Name 05/06/2023 12:36 Radiology [place] Mammo Screening 3D Bilateral. Patient called and notified of results. Left VM Normal [facility] Mammo Screening 3D Bilate ral.on 05-05-2023 [...] IS VERY IMPORTANT TO YOUR HEALTH. THE [employer] GUIDELINES RECOMMEND THAT WOMEN 40 [...] NIDA Assessment: 1-Negative Recommendation: Normal interval follow-up Normal [facility] Coding Summaryon 04-01-2023 Coding Summary HTMLBase 64 EwezbhixXTa9qPp+PGhlYWQ+PE1F RRYvD15ylHYcaI0sF5DPAZwHAcen OGRPUUcCHoToyzQwMU6xjGBtSTPi IC8+UK9nQPFiNgvwtGMwi0C5iZN7 Z30jqa6qVTnmcVI4UVKhYnPgwlwm t5dukJx1KSejNlanRdRd JMQnsO09JDW7uN17Cf70cOEccKEu l2bujKz1ReTgZNRvUMF6uIscNGjw r0FxKJQuP15seKJdv3J3 NTSjwUhisIQkXrJwbMJ3sK9bEHxh pgrzf1fsfprvLgv6oc52fZLgl2U2 eHD9X2JkcfQ4ORZmlWWl CzqzbECNmM3qiuwmf9tbwpevKtYx MWGbXKk3ONx1NWSbtGlmGgWpLL14 PFW7ZZWezuJxB4GwTABt yEqaJtL3t8S1Mg3DK2AUHhgqK7PL TUFSWTwvdGQ+PT94gb22K9PeXgjg Lsm1AUDiRRO4rEM3kR6j FVYpGCipr8A3xUN5L5OxwuZtlm6d b1cyENSxUAsaI33zoOCng4B5OMBb qDZ8HUXxhBzhPdRsvH78 Oyc+EFFtrLyen4JeEofwh2fxe5qj gDv7HzguAHLiwpSiqIhyJPI1j6Wz Sq0fMPAmuTD8nBO4tA4l IoEdWbP5TIwoY311ZqNutYUnXtxk V16nY8DepTB+ARMtHpq0LHZbkVes LJ7lV5DsUKGgqqgntUZr uFslBG2cEKPtjrvkIIPbwF4zPCYc X9o1GnBnYvM5MXmtX6DdSWSsdpyt Cr05rP0yHyRbYtS4OKao C5DqviS0DFNcqVGqKZcxNUU5L68h v0Z8JPUlLBQmGAS4rOR6hC0foLev bjogbGVmdDsgdmVydGlj PXkmMRoaD526DEWrqIemFjFoDZkj ZyBEYXRlOiAgMTIvMDcvMjAyMzwv dGQ+MNMxPKQ6pTawBDOq qSFyYKzqKq4lpVgwvRemTL6jQPBi fregRIAwtC4uBKBkrYPsdWpiNK1v FHCfhdznl582EgLlKQT2 MTTddJDtO9HhxR2tCfJzQVUoHOWq X5GrwGQjLByqP518AEcoVtN3BMRq viTeH0XnHCVyaQbmFaE6 g9K1Pp4Pq4FfugowF2KvgBJqQoFi UklpIHf3M9IhIpilaFD+IT28NNLo PX89SRj7EMY8xGobDChd TQIkJ3QcyS6wCpVkKESzAJHsWxf+ PHRhYmxlIHdpZHRoPScxMDAlJyBz gUkgQK7rEr8fHWYcCFQn nYwppSDyXfBtn7mzPLLaMGiyMM3g zUpaN9EbsEI9IITpm6p6We29N30y G6NisAX+MTJhmDN6uXI2 oM3lCwBwJjQ6RCdcG180FrZvaKNx Nqyck4gvh7ygxIp2QyV2XVXrssVg kAhtYGJ5k3NnDh29N35h UQxbEOEpRZZsQHJqANLtwJceyd9h qU1sCp4+XGCemXD3jNH1fV0wNvSc VwH5LBobR556KzZhxBMs Bzaar4ypk6orcHl6BrYlZMCqbaEq bVtoBHK8l3LkCe79Y4BywArfg0Av Xxl6hp84cEGcn0A5xGA3 A7XoWMPavuszpHLkgAcqDS1dPWZz bbmuNVPfdP3dWUUyV0k8TaHiTmY9 MRgaT4LvrgD1JBGzwJMv LZUvrNJSdH7xbpkry6iygmtxGrIt DXAcNSg4SIz5EKZzbZhyTiHfMNK5 SaF4XOP5uKRyiL4xiAli zlqfyG2bRpe+ZPE9xYBzbGBCMF7c OjwvdGQ+QRPvESK6gTztMNrvVPBo lW7sPGZeX3s3YkLaWzZ1 WAsbC2FoxpK0ACSrfCHvZKYrzEIK iR9itmbqf2xpxqwtFbZyVAGaIPw3 EUt0XLEfgValDkToMAP6 CkE7XAX2rTEhqY1jvTgogrlwdX8n Oyc+OueiiEylDVE2EOl5R8ZeTgd7 EBWxeCbpLM4qvGScKMra Cq0rbNazzJvlLQ4gNKEmymxmi447 MuIcj5hhVUNceHAvTTwuWPA4L33b t9G2CHNhQYZmGFI0yPF1 iX2atVziqzdauAFujWwimpQmgZpq YPndBCqaP525AMZiwNvgUhZkYLr2 C2PnYnm2UYEzsAfeMY3y jHNwVAzsRt3udIxdbFgcRV2vYTIc nhroh270UaIsy0pqXJFhgXXlMXhc QOO4T32kg5R4SNEhDORh EKW3uZG7gA4cdWnjkuctuMTdaUgp jxOlnQgkJXdbCBvzL118JAZkuLam OkVebBp4K1YkCrn5PJEf gTsnPE1vmTAaXYgdUi4afWwqdSoq MZ4hJELvibgnv123UqBui1zqSCWi gUJaGUuwPCN0N41nb9P5 WRYcPBHyYQJ6oWR4mD8mlErlhafr rXRmhXmspiHpcOwgDDlpXTxvG972 IHRvcDsnPlBhdGllbnQg RJdhPCx2Y8MrVshwaNL+LS61XKYk NM02kVJkmMRqs6vliWh1RcUcZIYq CPO0lKmaHQohr9YeDBJz L93ulNAun0W7IUXxnDnohBMkFnUs qPD5qG1aSCsnckbks0phbqhmRomh c6qxng83gP65B89yYPmk MZIlMLYtPXZyCLYwfUiemz2cnK4x Ii8+RDEkaQU0pYP4gJ1eKOBmKcC9 OAklC622KnQflDNxNfaa y1jge6bzzYy2NcU2JSQogzUsoIek VXU3p3EuOa58E53vUWiyJJDmEBFb RRZoOGJueLetjm0wlV4m Ii8+IWTgeKX6rMZ3oJ2rXpFvGjY4 UJvzO471IeTeaOEsDsscV30pL1Kx dXA+WDWjPsf1JZWvyAhc CO6joWRzHAhpQc4xGBR7OxPiSsMc OYkrD3LxCVOxiaoesmpyrGI3AJVq JDMqpH12Qr3moEdiUBZh eFSJpU4lyulks2vigjtcEoTtJXPg KUe7XXf1YYDfmTqnRhRbNFQ5RnE1 ASG4yRNbnX5hkGhdrqxg iS7mZ0HhGUJxnfbdRb45jN2oChHj SfE7DJvfKdd+E4GNC4zAKCSAACgM AZXZZe49M5WeRrw0CHId nMmgEA9zgPKbBFleUn9vfSyplMjw VW5fPHErczzuLKOfiO2hIXOirSPw oCgkLV8jOLJhfzbwj780 OwFaTNO0KMLtmHYdR5UstG9eFqQn UTKyAXTvU7YdeMWdWBsaX890VMry NzV7AVXybvFcY9YoHNWk kFujZoY2g7B3Pv7wCZ4vQX4fJYJ7 LG10TW18uAVfy2F6rRI7I3IsZIRz tyeieholuWE4PHFqJZUf vP85dRHnTXueOd5dc3H2q692VJWj SSYjwD71Zh0pwUmhFDMicTNRyQ1m isdlb2bdvgxmMdHuGXLw VZm4XOw4DMJawLtfAmDoJTC3FsR4 LCD5xDDhxP6giIywnrkvrA5vGvd+ ExfoTFKsmjZ0Y1RhAco2 YMTocVwnND7cxSUnHDvhRo6iiEij kUblAV0pPHQyqmsfZYJuxJ1fDZRl fTObxPdoXW0hIVPxyhes q030MmMlQVJ0URNxdSXzL8HwpT4m IsNzXUVoCJPiJ4WlfTPyNDxdX469 NChaSkC0ALBjykXuN5Il GYVdpOavHiS1e5K8Fj5ECB9UHSL4 Q2DySdd2HHWhbSjkNC8pqFUxAGik Lk5naJmrrOrpIS4mGIGx pcasYJMteD4gSKFqeFOdvSvxWJ9u ETKgnwjim263TlKjHJL6EMOsdDPd T2QoxM4bWoGeRXOdGDWh Y6QjmKLsDDxiU980BKxgKpX1XWLw rpFpS1EzHGWiuUojYkY4x4A9Zn4G UDwvdGQ+ZO15nx61N4Rr DucnMaz8JNQqJHD9lWP9rQ8xRZCt NKhog3F7qBB9N7OebtQfnt5mj7if BQBxLOsrS29glXSno5F5 KLQccBN8ZKLyiUgeCiDgbM74Frz+ QWQhbOeyr3JwKwhlv5ywf3muoIb4 IjMwJSIgdmFsaWduPSJ0 r2ShIq98A26lGTweKJZwZGTrQKMq XUVdwVulmd4knW5dFt7+PGNvbCB3 gFM6rJ6dZnFmWnY3WYfn R305WuVsuHDvIvrxt5ghi2eqdHf0 WmOfNHIssfXhlEnmTKV7b2AeUk74 D3SouPbnt3ZnSiz4fi10 tERry5D2nJK6A0NgDZVwrwhpvBBb zBemHF8cQFZmczxvZNQigQ0rCDFg P1w5YyTdNjR1BCnyI7Ln esE6EEKggRHqMOPqyJNPnG6kmzot c8xoleirEsHrGBXzGVc7XOe1GATe vGipBkLpFSA1XmB2KMF1 vTVgrE7pgBkxcqyvkQ2bAxo+UGh5 r7amoUFdZS5jpWH5MZ56MV34lVEc q8H1xBW6D5LoIVDnphfm xnjrdGB3JBLjPWQsdN16Ly0puZbd Yj2pYWOoMXG6QISzgGClO9JrnR0x VrJrETAmBYKaJ4CxaTNp YObxY688DUbbJgT0LGOsviWiJ5Rt UPRscPlvUjU3p8S5Sj1TDK47AX87 EM62eAPim0D4jOV6S0Gn HLLrasagiuzmbGY3AMVmEAVitO38 Mu4uaOcxDt9wBORgYUW4VITtrKJg Z4HzxU4tCwCsTEFvJUVv R3LbhXLkAAwlS587PAbiKlG2FAGx feCyY9YiDQJpfOxjNaL3z1K1Hg4D Iy25EQ48NT03sTQud7I0 aQW7J2KsAQSwdjtpdqxlnSY5AFDz QABvkM41Xf9ssWxtIi7kGJBqHXZ7 ZSRmvQApQ0WyzF2cPeFl GSTpJZTcV3UayUDjTSccZ737DXad BvD1RQAblcPdR3AqLRPfaRqgDxC3 q0D0Am2KFDufgmh2W0Ef PjwvdHI+DC62AFSoIY43bFUddSWc w0ifqAo8UyFjJEPyCTJ7lKsuCVab g9LfFJOuR52hfZYec5M1 IGN (more content not included)... [facility] Coding Summary HTMLBase 64 CmafxyntVUo3uCm+PGhlYWQ+PE1F HNKgE63woYJjeS1iG5ZLOTpSWmgb POGWOAuJPfJgjzMsOH8hiLAmVSFp IC8+LF0rQLXsHowcmRKdf8U6iVT2 Z63mhn4wOPuyoHY8OGWlTvVcsohe b6uqtPl8CJgwAuwcGqVt SIDwxM28BNV2yY94Oo65jZZgyRCh p3gqtYh0XiAbLVWyTOP9vExhFFcc s5LyMKDpP22geWBmu5P0 QYGevLthpLZqUiDgvXE5rA3eJByu aqgpc4pkgosgAfx1if67nCUlp6H5 bPV4O1VuasC1POLqgGYe RzvybUNTgY9gefitt6jykjciVmTj PSZiKMg6OIe9EYPwmUhzKtVmGD78 IVQ4XCLvaeMpA7XpAGXi qTndEeI4b1M1Vp8XY5XTCcwjX2QC TUFSWTwvdGQ+VS17ke84R9FlShbf Lmf4MJRsBNN3rGF3eB8a LOXeUPlaq8V5hVD9S1JkoiVdmq2a i1ttGMWeSDinD13lbLEco6G9MPGo rDF7DGXmiMksRjKpdH12 Oyc+EUXmuBkwz0QxMmnah1syx9mw pJx1WdyjNKSeosMvrZhqFUT6x3Oe Uw3kFRDebIG9fEF1uY9x IxWvRqW5QGlpT046WyOoqWMlIwjm Y12pA3GcuQK+NGFgKnh6OKWivWpl HY0cS4HhDQQtoaiuxWZr sNgvYE0kGYJeqrwrJTOxrJ1xMAKa D6k4CdZhGaA8AYhwC1LzTRTpnipj Uk89xK1jXzZuCkI5GJme G9XzjaQ4TOBaaVNtWKxvLSY1W62u h4M8YXCuMXAqXJD5rVJ8pA1neHef bjogbGVmdDsgdmVydGlj KAeoQAztP103VLXjrKjhGcDgLZas ZyBEYXRlOiAgMTIvMDcvMjAyMzwv dGQ+MYDtIUN6uVbcJYGk kQKfJUhhNh9nlTlixJqvWE6lESEs ssaqVUNrtB8uCODwhSQxpPfbWA2i HJPhdssaz271EdEdCVR3 XTImnKFjD0FiuB5rBkYvSIScFVQn I1RszPFcTExyQ537EOlySqJ9BDKk jzElS8KdADNwuTztDrH0 e1W8Vb1Cz4MbixezK8LluNTcLbWb NiabVNv9Y4TsQcisrDV+AO29THIc TW29PLv3XMP8pXdgKYsk FALbA0PwfK4sMpQzDNXiWKTyDxf+ PHRhYmxlIHdpZHRoPScxMDAlJyBz mOucJI0sVe2nCWBcINSy oRwxzFAvNlWbc5qbCEXiMZosSF6k aSieQ6VyaYZ7OWZew6t9Qk73P91v H8CisIH+YEGwcOD1uLN5 eE7xIhRwXmN9DLgnK475BvSbpQLt Uukbo5jvv5vrpJf9KpO5YMWlbmBq oOjiBXT4c5OtWn40F65u SDbpPLZzFGAkAEWmZPCdtYzgne7k vE2tAd7+TNXfoUL7hLM1wR0lEnHv OmZ1BBiiV729MtWpnWOw Otfeb7hio6dhuRs4DxBmWDKuixSs hVykZUW8t9VxEf06F7BwxEwja5Kx Sos7yh81qOFck1T7mUI1 F6NpKTDmwiduqBZofPclDG4mGVWr yutvJKVykM9sPZVpU3b0OiAeUdM9 FDlrT3NudsT0RAJlpIFx KGZbcKNQtQ6ngunuh3axxawdHdEb JMSmFAk2MOk7ENPbuJmiReQiRUJ4 CcG0ZVW8cTDjfG2mdSmh jdkaoR9lPfc+IBH4rOTbpTDRXT5v OjwvdGQ+BNBdSME2fEruHFtrXUOt qT4uRBGmK5w3KpNfYpI7 PGedW8HvmqS1DTWrrXOwYMRogQLD hE7wsgzkl9dmulgqMtSpQWSvAKg6 GTz9YKLufCdjKkCvBEW4 JjT9KMG4tYVccC9kpKbgsslbxD2d Oyc+BzpunWbqJBV4NQz7N6ZxVlo1 HGPueYmmMK3kpLPjRYnn Pt8qwIxhsPppWQ4kJSPujdlqn776 FpPds9giYETlrFQpAEhwMRT6M68n n9Y3MTXgMVOuAPS0pAF8 eL0ycUpeychqpIAchKullpWesKam JGxzYTkrN256ZEYqcTfpKdOxOPk2 H0FjNkg5GITwgJjhTS4y iUTmICdrAi7yyCyzlTmlNF7xGCTm nuxld486HfLyq2grUVNltWJnFWxc OAI4U95ul8L9FIOjYAMi KBD7yXJ8bS5fwKrmwiuwcBCsbJzi thWfgWmkJCtmSPbzP438VAZgbPlm NeQdxCp1N8QhWfy7VPJq sTttDR3vaUDgLLgdMg2bvDapsIcj FZ7nEPWljimli957NhPyz6zyQOPz eNFtHQeaNOI2Z88zi7B7 FJDiAQMbQEZ7rPO6xB5ufGvxldzp cCImiTfqajEeuNogPCkpXOuuZ618 IHRvcDsnPlBhdGllbnQg JCepBUs9H9EqKyvdvXD+AK01THHd SY49eQJmbIAlp8zdtSf5DvYeOIQk CRN3wVggPTdpo6KoMQDb M58fgIIwe6J7OBJjtDhmnYEqLlLb vAQ2bH8sOYhaixznl8ygxhbgSren y7cgbt51hE56Z25rHMww OJWpWOPsHAOrCXQqjSedmd4jvR9s Ii8+BMDecFY8iJU9qN1cBVBhFpW7 YPauD524CuHfmMByGbwf e0sni0cneKo9NfT4ENNgdvLzhLqo IJS6q8JzEj35E33lZMokGMKpERAr BHSvDAIwmRqujo4viU1d Ii8+UPAnaMT1wWJ4bU8jXqZbXkC1 UCyuK568VwRznVWeOntuI45cT3Bu dXA+YDFqBii9XVFxpHqy XE4agTJyJVzsMp6rGFE4HxDcEeTh PHtpF5ObSWHfycbsqimjnNA9UICg NPShrO50Bw2hgJpzMOWb pGPWpS2ykwzaw1cunizkJeItCAZh AVs8OPr5VYXopCmyVtOsKXP8UzB4 RQD3vSFrwH4hkTdhslim oG0lG9KtUQJqzsjrMy86nQ7bKxCc ThM4HTaiGfm+H9BYS4fIIBVPPVdW EUGXYh79E4VzYsi9YPRg rNfoDD6lzJPgBYueHy5nbWycgQyj NT1eXYQwivwfORFgqF1qYANpjAQj fAwcJJ0mOFGmoryac273 JqAfPUL6FRTfhEIdJ6CgcJ3wXkPn AYByRIXbA0ZpaOXwUJbcS200USeo JdB9CMButxQzQ8CrPMYv tWjvCtI9x9M0Qw4vMA3kST0yCZD0 PI28FR69zTFhm6G1iSE2C4VkTLXh txagppbtiHM3EJIzRXCm xC59iCTwUXgwKe6vk2A6z959GDQx ROHzuV72Ks9goTtjFNNuwPMXxI6e uylgy4qslkhkLjOjFLVl SDa0PHs3WOGqwCzsFhQsTBO7NgB3 NXC7qJMfiM3irIpraidclA4nElk+ XecgXRElkkF7E3YgDrb1 ENYrtAxxYZ2ngVFiMKepWr3vmPhh iGquTM8dULOqpheoNZGzcE8kVGDd qGDmuXjzIW7nBJRtzabo f625QpQiVCY5BPYmxDYwJ9RgxH7e XdFeWAHhKFVfZ3RxtSPiUYshV675 MSqkUvX2RKIgekIzY3Hq PYRaiUfrRaY0f1F4Bj3QNH4HLLP1 Z4KwHmf7OHNabIsoUB9bgMLdHCtd In9iiXyfoTahZA1aEGVj ncbjGRRqyO2eWCQzoMWpoJmuFK7e KITzarrhi686XvJcYTI5WFGswVEg J8EvfJ0zRpWqXXAdZLLa P2OylWOwAXdwV040NXqlAsK3BOLj biEoB9HtTHOvhDteJfA6p4O9Sk6J UDwvdGQ+XD79vd62X8Ni ZjmjHgc7LEBlOJZ3wNX1oY5oUYOu NPgho7M4hKV2M0GgjxQjwa8qf6qf DZObQNcnM24pxWCfs4N6 UHGgfNZ3KYFluVefXyZadN18Msl+ XNCvkJrac9JcStjzg0hmg1lzpYb1 IjMwJSIgdmFsaWduPSJ0 l2XgOk52D80oMRpoFSGiQPTlYPUp TFZcjHvudd1tbY7lKx8+PGNvbCB3 cIL3eM1qNhExPeM8SZfj H043BcMkiDSvLjyyk3hwv6gxeEn1 RsZqWKZmewWynDjcIZY6d2GzPu74 N6TgjUfov6DnRav8fx09 fNDze9W1jDX7Q2PrENWpihssbNPc pArlQP3gREPgqdbdVCZsxR6nRJMl Q4q2RzIuIxE4IPzmQ1Lm iyA6YENxtVBbOHKtlWLDbB1lfate h3efgawpXvQbCNYeKPs2LYw7PWEn lUbpPpSfICZ7UvD1KUC1 yRBfnB1jdFroljsdwI2oRvg+UGh5 t1stpTHcMA2rkRZ5SL09EM54rJYf f2T5aOR9Z1UeLXKbdvgh xreduBR6BNRgAMBbcB71Dp4uiJfn Cb9cKEMaBGH7OGVnpRXoX5VwlF5e NePqHCOrLVApU2ZgbUDz QYldH306SSnoTtV1GWXfazKhB0Wt JMVryQvzGrV8p9T8Kc9FKQ01AM45 NP93rBDyt6W8wGG1E9Rt NUMsifsyfpvidRA1VWKpFRMurP63 Vn3omDftZq9aOIOoKNZ5FXFsjMLz S5HhmE2cOiKsIXLwJNQj D3AotSRgVJejZ364ARpzDpZ8GPEy stKoE0PdXJZrtNejDaZ5k9B0Ti0Q Ox84YJ21LV29sLJyy0J6 yTC7W0SbBSGpqgtysbikdIB3DIFn JTAxeY51Cx3tnVplWk7sNUPpDPR6 RKAijRCdN7SkrI2vUnTq BDAlTTXuF0GqyAYdOGznQ851FRyi AqY5ATLygeHaL3JqERKqdGyrPxS3 y1C0Tj0VPPxdzeq4V9Yr PjwvdHI+II89IIDoCD11gTRbuAMl o4zjtMp2PiOdQBZaXUW0hJorLNzs e5BjGGWoG67fyVRgy4L9 IGN (more content not included)... [facility] MR head/brain wo/w [facility] MR head/brain wo/[place] [address] MRI Report Signed Patient: Flaquita Robertson MR#: [id number] 47 : 1955 Acct:[id number] Age/Sex: 67 / F ADM Date: 03/30/23 Loc: MR Room: Type: [facility] Attending Dr: Ashu Goff OD Copies to: Ashu Goff OD Ordering Provider: Ashu Goff OD Date of Service: 03/30/23 MR/MR head/brain wo/w con: H57.11 ([id number]) MR/MR orbit wo/w con: H57.11 MR orbit [...] Diaz Quintero M.D.03/31/2023 9:24 AM Dictation Location: [place] [address] Transcribed By: [facility] 03/31/23923 Dictated By: Diaz Quintero II, MD 03/31/23903 Signed By: 03/31/23923 [facility] .Auto Diff 103-30-2023 Auto [place] % 9 % Normal 05-07 [facility] Comment on above: Performed By: #### 1 [id number], 2620053623, 1644863969, 59452876, 0720088, 9310071 ####[facility] (DEFAULT)[address] [place] [address] Baso Abs# 0.0 x10 Normal 0.0-0.2 [facility] Comment on above: Performed By: #### 1 4369441, 5116242662, 7337320125, 37284340, 4472867, 3679525 ####[facility] (DEFAULT)[address] [place] [address] 66656 Basophils/100 WBC (Bld) 0.9 % Normal 0.2-2.0 [facility] Comment on above: Performed By: #### 1 4665752, 5561625212, 2854455448, 80224667, 4461881, 1227474 ####[facility] (DEFAULT)[address] [place] [address] 87616 Eos Abs# 0.1 x10 Normal 0.0-0.4 [facility] Comment on above: Performed By: #### 1 7302417, 9485877176, 4012329383, 26817935, 8926066, 9805008 ####[facility] (DEFAULT)[address] [place] [address] 71399 Eosinophils/100 WBC (Bld) 1.8 % Normal 0.9-4.0 [facility] Comment on above: Performed By: #### 1 3025026, 9522701243, 2757626908, 77048069, 4740324, 5658690 ####[facility] (DEFAULT)[address] [place] [address] 19386 Lymph Abs# 1.8 x10 Normal 1.3-2.9 [facility] Comment on above: Performed By: #### 1 2639506, 3037483538, 9191996531, 42395019, 2116167, 0539276 ####[facility] (DEFAULT)[address] [place] [address] 39339 Lymphocytes/100 WBC (Bld) 33 % Normal 14-48 [facility] Comment on above: Performed By: #### 1 0119164, 1431870216, 7226796794, 92688054, 4967869, 6542107 ####[facility] (DEFAULT)[address] [place] [address] 58566 [place] Abs# 0.5 x10 Normal 0.0-0.8 [facility] Comment on above: Performed By: #### 1 3264175, 6259844043, 9790969477, 04944682, 2676917, 0033560 ####[facility] (DEFAULT)[address] [place] [address] Neut Abs# 3.0 x10 Normal 1.5-9.2 [facility] Comment on above: Performed By: #### 1 4640054, 2194782242, 3968100486, 37328542, 1297846, 0172160 ####[facility] (DEFAULT)[address] [place] [address] Neutrophils/100 WBC (Bld) 55 % Normal 44-88 [facility] Comment on above: Performed By: #### 1 0836802, 6502201388, 8190410311, 59985580, 1730719, 4016966 ####[facility] (DEFAULT)[address] [place] [address] CBC w/ Auto Diffon 3 Erythrocyte distribution width (RBC) [Ratio] 13.7 % Normal 11.5-15.0 [facility] Comment on above: Performed By: #### 1 9125980, 2003530610, 3884991538, 84072975, 2698073, 9619755 ####[facility] (DEFAULT)[address] [place] [address] Hematocrit (Bld) [Volume fraction] 43.7 % High 33.7-40.4 [facility] Comment on above: Performed By: #### 1 1020846, 0729254744, 3048400087, 69898044, 0514778, 9963066 ####[facility] (DEFAULT)[address] [place] [address] Hemoglobin (Bld) [Mass/Vol] 14.6 g/dL Normal 11.3-15.9 [facility] Comment on above: Performed By: #### 1 6966322, 5571181244, 1165036749, 06548813, 7604489, 9676912 ####[facility] (DEFAULT)[address] [place] [address] 66845 Man Diff? Auto Invalid Interpretation Code [facility] Comment on above: Performed By: #### 1 2123209, 9767312398, 1505830810, 21121213, 6376693, 4983354 ####[facility] (DEFAULT)[address] [place] [address] 71736 MCH (RBC) [Entitic mass] 32 pg Normal 24-34 [facility] Comment on above: Performed By: #### 1 7023624, 6075682306, 1443730594, 63067988, 3826615, 8870726 ####[facility] (DEFAULT)[address] [place] [address] MCHC (RBC) [Mass/Vol] 33 g/dL Normal 26-37 [facility] Comment on above: Performed By: #### 1 0331041, 2002171803, 7084069959, 71849087, 7500332, 7814484 ####[facility] (DEFAULT)[address] [place] [address] 84597 MCV (RBC) [Entitic vol] 95 fL Normal 81-100 [facility] Comment on above: Performed By: #### 1 8149138, 2443545912, 6782942050, 78204813, 7635490, 3611090 ####[facility] (DEFAULT)[address] [place] [address] 87993 Platelet 305 x10 Normal 138-427 [facility] Comment on above: Performed By: #### 1 0583550, 4720020491, 6278290240, 10514266, 9743983, 3950283 ####[facility] (DEFAULT)[address] [place] [address] 55280 Platelet mean volume (Bld) [Entitic vol] 7.8 fL Normal 6.3-10.2 [facility] Comment on above: Performed By: #### 1 4012862, 2522555024, 0676370626, 29414561, 1221368, 9285242 ####[facility] (DEFAULT)[address] [place] [address] 49493 RBC 4.62 x10 Normal 3.70-5.30 [facility] Comment on above: Performed By: #### 1 0560222, 0060252311, 6856295114, 67826424, 7775483, 5134685 ####[facility] (DEFAULT)[address] [place] [address] WBC 5.5 x10 Normal 3.5-10.5 [facility] Comment on above: Performed By: #### 1 0598110, 9777792793, 2435301904, 67181244, 5349243, 9572327 ####[facility] (DEFAULT)[address] [place] [address] CMP Standardon 03-30-2023 eGFR Non AA >60 Invalid Interpretation Code [facility] Comment on above: Performed By: #### 1 4022888, 3655461905, 1758044084, 79173866, 6444754, 2736974 ####[facility] (DEFAULT)[address] [place] [address] eGFR AA >60 Invalid Interpretation Code [facility] Comment on above: Performed By: #### 1 8231374, 1317887455, 1672111519, 31205291, 6478640, 2830686 ####[facility] (DEFAULT)[address] [place] [address] Albumin [Mass/Vol] 4.0 g/dL Normal 3.5-5.0 [facility] Comment on above: Performed By: #### 1 4015298, 6846183993, 8710156964, 61798426, 2595388, 1718317 ####[facility] (DEFAULT)[address] [place] [address] 68900 Albumin/Globulin [Mass ratio] 1.1 {ratio} Low 1.4-2.6 [facility] Comment on above: Performed By: #### 1 8047470, 6303070365, 5144197268, 15783803, 3478493, 6997983 ####[facility] (DEFAULT)[address] [place] [address] Alk Phos 79 IU/L Normal 32-91 [facility] Comment on above: Performed By: #### 1 0835255, 3659613150, 1250770686, 60731114, 6378253, 9437729 ####[facility] (DEFAULT)[address] [place] [address] 70921 ALT [Catalytic activity/Vol] 31.0 U/L Normal 14.0-54.0 [facility] Comment on above: Performed By: #### 1 1618378, 5509188838, 9629255890, 90642205, 1756963, 0964161 ####[facility] (DEFAULT)[address] [place] [address] 02719 Anion gap [Moles/Vol] 9.6 mmol/L Normal 5.0-19.0 [facility] Comment on above: Performed By: #### 1 8964283, 4061102839, 2227030884, 87948261, 5521787, 2139502 ####[facility] (DEFAULT)[address] [place] [address] 35220 AST [Catalytic activity/Vol] 25 U/L Normal 15-41 [facility] Comment on above: Performed By: #### 1 5706789, 7410178454, 6321211460, 01719037, 1223674, 6794634 ####[facility] (DEFAULT)[address] [place] [address] 15870 Bili Total 0.6 mg/dL Normal 0.3-1.2 [facility] Comment on above: Performed By: #### 1 6860385, 2789395902, 0528875646, 58235696, 6046453, 6815817 ####[facility] (DEFAULT)[address] [place] [address] 01766 Calcium [Mass/Vol] 8.9 mg/dL Normal 8.9-10.3 [facility] Comment on above: Performed By: #### 1 0630332, 7351905131, 3802241588, 43137521, 3306671, 3961664 ####[facility] (DEFAULT)[address] [place] [address] 02532 Chloride [Moles/Vol] 109 mmol/L Normal 101-111 [facility] Comment on above: Performed By: #### 1 9456739, 3966211568, 8826241282, 59143957, 4259648, 5928035 ####[facility] (DEFAULT)[address] [place] [address] 06170 CO2 [Moles/Vol] 26 mmol/L Normal 21-32 [facility] Comment on above: Performed By: #### 1 0915630, 0075404672, 8108938460, 95394504, 5391178, 9108671 ####[facility] (DEFAULT)[address] [place] [address] Creatinine [Mass/Vol] 0.78 mg/dL Normal 0.60-1.30 [facility] Comment on above: Performed By: #### 1 8260867, 9169068657, 1434357667, 83569510, 7612126, 0477463 ####[facility] (DEFAULT)[address] [place] [address] Globulin (S) [Mass/Vol] 3.5 g/dL Normal 1.5-4.3 [facility] Comment on above: Performed By: #### 1 0051938, 5140338780, 6508471775, 51428654, 5860381, 7685889 ####[facility] (DEFAULT)[address] [place] [address] 52234 Glucose [Mass/Vol] 104.0 mg/dL Normal 74.0-118.[address] [facility] Comment on above: Performed By: #### 1 7998928, 5593262204, 3264042583, 27790995, 5625298, 2811326 ####[facility] (DEFAULT)[address] [place] [address] 63092 Osmolality 282 mOsm/L Invalid Interpretation Code [facility] Comment on above: Performed By: #### 1 6236480, 5726456905, 0637224327, 11450424, 5595475, 0951000 ####[facility] (DEFAULT)[address] [place] [address] 62000 Potassium [Moles/Vol] 4.6 mmol/L Normal 3.6-5.1 [facility] Comment on above: Performed By: #### 1 3784456, 2866407401, 1998717886, 82997406, 8275415, 1230183 ####[facility] (DEFAULT)[address] [place] [address] 08867 Protein [Mass/Vol] 7.5 g/dL Normal 6.5-8.1 [facility] Comment on above: Performed By: #### 1 7269057, 5518964551, 0617911958, 44642833, 3161299, 9906252 ####[facility] (DEFAULT)[address] [place] [address] 32071 Sodium [Moles/Vol] 140.0 mmol/L Normal 136.0-144 . 0 [facility] Comment on above: Performed By: #### 1 3225467, 1927069586, 2716805995, 58840016, 5233835, 5253593 ####[facility] (DEFAULT)[address] [place] [address] 49439 Urea nitrogen [Mass/Vol] 18 mg/dL Normal 8-26 [facility] Comment on above: Performed By: #### 1 1894712, 2475205531, 3652324134, 81161109, 2084068, 2682015 ####[facility] (DEFAULT)[address] [place] [address] 95250 Urea nitrogen/Creatinine [Mass ratio] 23.0 mg/mg High 4.6-16.2 [facility] Comment on above: Performed By: #### 1 7332597, 5927363963, 0256517358, 57508411, 7596319, 9037355 ####[facility] (DEFAULT)[address] [place] [address] 03019 CRPon 03-30-2023 CRP 0.5 mg/dL Normal <=0.5 [facility] Comment on above: Performed By: #### 2 920951, 9306254 #### [facility] (DEFAULT) [address] [place] [address] 91814 Creatinine (Bld) [Mass/Vol]O rdered By: Ashu Goff on 03-30-2023 Creatinine [Mass/Vol] 0.7 mg/dL 0.6-1.3 [facility] Comment on above: ER/ESD physician is notified/shown all ISTAT results.Critical values may be confirmed by laboratory testing ifdeemed necessary by ER attending doctor. ISTAT XRay CREon 03-30-2023 Creatinine [Mass/Vol] 0.7 mg/dL Normal 0.6-1.3 [facility] Comment on above: Result Comment: ER/E SD physician is notified/shown all ISTAT results. Critical values may be confirmed by laboratory testing if deemed necessary by ER attending doctor. Performed By: #### I SCRE #### [address] ISTAT GFR > 60.0 Normal [facility] Comment on above: Result Comment: PERF ORMED BY: [address] [place] [address] PATHOLOGIST CIRCULATION CLERK SONNY CORDERO M.D. Performed By: #### I SCRE #### [facility] [address] [place] [address] Lipid Panel Standardon 03-30 Cholesterol [Mass/Vol] 251.0 mg/dL High 66.0-200.0 [facility] Comment on above: Performed By: #### 1 [id number], [id number], [id number], [id number], [id number], [id number] ####[facility] (DEFAULT)[address] [place] [address] Cholesterol in HDL [Mass/Vol] 71 mg/dL Normal 40-71 [facility] Comment on above: Performed By: #### 1 [id number], [id number], [id number], [id number], [id number], [id number] ####[facility] (DEFAULT)[address] [place] [address] Cholesterol in LDL [Mass/Vol] 156 mg/dL High 1-100 [facility] Comment on above: Performed By: #### 1 [id number], [id number], [id number], [id number], [id number], [id number] ####[facility] (DEFAULT)[address] [place] [address] Cholesterol.total/Ch olesterol in HDL [Mass ratio] 3.5 {ratio} Normal 0.0-4.5 [facility] Comment on above: Performed By: #### 1 [id number], [id number], [id number], [id number], [id number], [id number] ####[facility] (DEFAULT)[address] [place] [address] Triglyceride [Mass/Vol] 118.0 mg/dL Normal 0.0-150.0 [facility] Comment on above: Performed By: #### 1 [id number], [id number], [id number], [id number], 8955539, [id number] ####[facility] (DEFAULT)[address] [place] [address] VLDL. 24 mg/dL Normal 5-40 [facility] Comment on above: Performed By: #### 1 [id number], [id number], [id number], [id number], [id number], [id number] ####[facility] (DEFAULT)[address] [place] [address] No Panel InformationOrdered By: Ashu Goff on 03-30-2023 Bedside Estimated GFR (eGFR) > 60.0 [facility] Provider Orderson 03-30-2023 Provider Orders [id number] Normal [facility] Reminder Messageson 03-30-20 23 Reminder Messages - From: NICOLE PETERS DO To: [facility] Clinical [facility] [place] Sent: 03/30/2023 12:31:24 EST ! Show up: [...] % (14 - 48) 03/30/2023 10:18 Auto [place] % 9 % (1 - 12) 03/30/2023 10:18 Auto Eos % 1.8 % (0.9 - 4.0) 03/30/2023 10:18 Auto Baso % 0.9 % (0.2 - 2.0) 03/30/2023 10:18 Neut Abs# 3.0 x103/mcL (1.5 - 9.2) 03/30/2023 10:18 Lymph Abs# 1.8 x103/mcL (1.3 - 2.9) 03/30/2023 10:18 [place] Abs# 0.5 x103/mcL (0.0 - 0.8) 03/30/2023 10:18 Eos Abs# 0.1 x103/mcL (0.0 - 0.4) 03/30/2023 10:18 Baso Abs# 0.0 x103/mcL (0.0 - 0.2) Patient called and notified of results. Verbalized understanding. Normal [facility] Sed Rateon 03-30-2023 Sed Rate 11 mm/hr Normal 0-20 [facility] Comment on above: Performed By: #### 2 [id number], [id number] #### [facility] (DEFAULT) [address] [place] [address] T4, Totalon 03-30-2023 T4 [Mass/Vol] 7.56 ug/dL Normal 6.09-12.23 [facility] Comment on above: Performed By: #### 1 [id number], [id number], [id number], [id number], [id number], [id number] ####[facility] (DEFAULT)[address] [place] [address] TSHon 03-30-2023 TSH Qn 2.02 m[IU]/L Normal 0.45-5.33 [facility] Comment on above: Performed By: #### 1 [id number], [id number], [id number], [id number], [id number], [id number] ####[facility] (DEFAULT)[address] [place] [address] Infusion [place]she[place] 023 Infusion Flowsheet 130/79 MG-Amb [facility] 1600 DO Work Phone: Infusion Flowsheet 82 1 MG-Amb ulato ry Infusion [place] [address] DO Work Phone: [phone] Infusion Flowsheet 16 1 MG-Amb ulato ry Infusion [place] [address] DO Work Phone: Infusion Flowsheet 96.8 1 MG-Amb ulato ry Infusion [place] [address] DO Work Phone: [phone] Infusion Flowsheet 95 1 MG-Amb ulato ry Infusion [place] [address] DO Work Phone: [phone] Infusion Flowsheet 300 MG VYEPTI [facility] [address] DO Work Phone: [phone] Infusion Flowsheet NORMAL SALINE 125 ML [facility]-Amb[facility] [place] [address] DO Work Phone: [phone] Infusion Flowsheet ZERO MEDICATION WASTED [facility]-Amb[facility] [place] [address] DO Work Phone: Infusion Flowsheet INFUSION COMPLETE. L INE FLUSHED WITH 30 ML NORMAL SALINE [facility]-Amb[facility] [place] [address] DO Work Phone: [phone] Infusion Flowsheet LM MG-Amb ulato ry [facility]fusion [place] [address] DO Work Phone: [phone] Infusion Flowsheet VYEPTI 300 MG MG- Ambulato ry [facility]fusion [place] [address] DO Work Phone: [phone] Infusion Flowsheet NORMAL SALINE 100 ML [facility] [place] [address] DO Work Phone: [phone] Infusion Flowsheet Infusion Started MG-Amb[facility] [place] [address] DO Work Phone: Infusion Flowsheet 200 ML//HR MG-Amb ulato ry Infusion [place] [address] DO Work Phone: [phone] Infusion Flowsheet PT WITHOUT SIGNS OR SYMPTOMS OF REACTION MG-Ambul[facility]fusion [place] [address] DO Work Phone: [phone] Infusion Flowsheet LM MG-Amb ulato ry Infusion [place] [address] DO Work Phone: Nurse Visit (Infusion-Inject ion Services)on 10-28-2022 Nurse Visit (Infusion-Injection Services) Orders-Security Solutions Engineer Medications Administered: Vyepti 100 MG/ML Intravenous Solution Rx By: Zoie Tejeda;For: Migraines; Dose of 300 MG; Intravenous; ROCHELLE = N; Administered by: Bibiana Bower R.N.: 10/28/2022 11:15:00 AM; Last Updated By: Bibiana Bower; 10/28/2022 11:29:40 AM MEDICATION SUPPLIED FROM [facility] Reason For Visit PT HERE FOR 300 MG VYEPTI INFUSION THIS IS A DOSE INCREASE FOR PT Ordered by ZOIE TEJEDA GARDEN EQUIPMENT MECHANIC. FLAQUITA ROCKY accompanied by: SELF. Patient is here for [...] TABLET DAILY NEEDED. Vitals Vital Signs Recorded: [id number] 11:00AM Upwlzyrtzzz56.8 F Heart Rate86 Lqnhcuczatj20 Jaxhyflz198, LUE, Sitting Pcicsbcnw04, LUE, Sitting O2 Xmtesepdvy24, RA Pre-Procedure Checklist Pre-Procedure Checklist Allergies were [...] infusion. Infusion Procedure PT PROVIDED WITH WRITTEN (Orecon PT EDUCATION SHEET) AND VERBAL EDUCATION REGARDING MEDICATION GIVEN. VERIFIED MEDICATION NAME WITH PATIENT AND DISCUSSED REASON FOR USE. BRIEFLY DISCUSSED HOW MEDICATION WORKS AND EDUCATED ON GOAL OF TREATMENT, FREQUENCY OF TREATMENT, ADVERSE RXN'S AND COMMON SIDE EFFECTS TO MONITOR FOR. INSTRUCTED PT TO ASSURE THAT ALL PROVIDERS INCLUDING DENTIS (more content not included)... Normal [facility] [...] back pain. She does workout with a agency trainer twice a week and tries to [...] in February 2021. Is under care with [facility]. Had extensive imaging and testing including advanced imaging with MRI and CT scan of the head and neck as well as testing to rule out CSF leak and has visited several providers including ian graff (more content not included)... Normal [facility] Office Visit ([facility])on 10-22-2022 Follow-up visit Diagnoses/Problems Assessed Other low [...] not effective she will consider returning to [employer], though her co-pay is preventatively high Patient [...] been seen by a headache specialist at [facility], who diagnosed her with occipital neuralgia; she stated that she did 5 weeks of PT, and then plateaued ; the PT also attempted dry needling , which she found ineffective; she stated that she will be getting a second opinion with neurology next week; patient also visited a chiropractor in [place] who is a cervical specialist ; she [...] stiff, sharp and deep. Pre-Treatment Pain Level: 10. Flaquita presents today for the follow-up chiropractic [...] back pain. She does workout with a agency trainer twice a week and tries to [...] visited s (more content not included)... Normal HelloFax Office Visit ([facility])on 09-17-2022 Follow-up visit Diagnoses/Problems Assessed Other low [...] been seen by a headache specialist at [facility], who diagnosed her with occipital neuralgia; she stated that she did 5 weeks of PT, and then plateaued ; the PT also attempted dry needling , which she found ineffective; she stated that she will be getting a second opinion with neurology next week; patient also visited a chiropractor in [place] who is a cervical specialist ; she [...] Segmental an (more content not included)... Normal [facility] [...] back pain. She does workout with a agency trainer twice a week and tries to [...] some treatmen (more content not included)... Normal [facility] Office Visit ([facility])on 09-01-2022 Follow-up visit Diagnoses/Problems Assessed Other low [...] been seen by a headache specialist at [facility], who diagnosed her with occipital neuralgia; she stated that she did 5 weeks of PT, and then plateaued ; the PT also attempted dry needling , which she found ineffective; she stated that she will be getting a second opinion with neurology next week; patient also visited a chiropractor in [place] who is a cervical specialist ; she [...] (V11.8) (Z86.59) (more content not included)... Normal Hello[facility]ax Infusion Flowsheeton -05-2 023 Infusion Flowsheet 15 MIN POST INFUSION WAIT TIME COMPLETED. PT WITHOUT ILL S/S. MG-[facility]ato [facility] [place] [address] DO Work Phone: Infusion Flowsheet CQ MG-Amb ulato ry Infusion [place] [address] DO Work Phone: Infusion Flowsheet 113/74 MG-Amb ulato ry Infusion [place] [address] DO Work Phone: Infusion Flowsheet 70 1 MG-Amb ulato ry Infusion [place] [address] DO Work Phone: Infusion Flowsheet 16 1 MG-Amb ulato ry Infusion [place] [address] DO Work Phone: Infusion Flowsheet 98.2 1 MG-Amb ulato ry Infusion [place] [address] DO Work Phone: Infusion Flowsheet 100 1 MG-Amb ulato ry Infusion [place] [address] DO Work Phone: Infusion Flowsheet VYEPTI 100 MG MG- Ambulato ry Infusion [place] [address] DO Work Phone: Infusion Flowsheet NS 100 ML MG-Amb ulato ry Infusion [place] [address] DO Work Phone: Infusion Flowsheet Infusion Stopped MG-Ambul[facility]fusion [place] [address] DO Work Phone: Infusion Flowsheet ZERO MG-Amb ulato ry Infusion [place] [address] DO Work Phone: Infusion Flowsheet DENIES ILL S/SX. NS 30 ML FLUSH GIVEN. 15 MIN POST INFUSION WAIT TIME BEGINGS. MG-Ambulato ry Infusion [place] [address] DO Work Phone: Infusion Flowsheet VYEPTI 100 MG MG- Ambulato ry Infusion [place] [address] DO Work Phone: Infusion Flowsheet NS 100 ML MG-Amb ulato ry Infusion [place] [address] DO Work Phone: Infusion Flowsheet Infusion Started MG-Ambulato ry [facility]fusion [place] [address] DO Work Phone: Infusion Flowsheet 200 ML/HR MG-Amb ulato ry Infusion [place] [address] DO Work Phone: Infusion Flowsheet DENIES ILL S/S. MIGR YAHAIRA 3-4/10. [facility]ulato [facility] [place] [address] DO Work Phone: Nurse Visit (Infusion-Inject ion Services)on 07-29-2022 Nurse Visit (Infusion-Injection Services) Orders-Security Solutions Engineer Medications Administered: Vyepti 100 MG/ML Intravenous Solution Rx By: Zoie Tejeda;For: Migraines; Dose of 100 MG; Intravenous; ORCHELLE = N; Administered by: Rebecca Harrington R.N.: 07/29/2022 11:15:00 AM MED SUPPLIED BY [facility]. Reason For Visit PT HERE FOR [...] TABLET DAILY NEEDED. Vitals Vital Signs Recorded: 29Jul2022 11:00AM Kkkzhmzcoiy10.9 F Heart Rate79 Uwetuzilouw30 Fotkrrdw228 Htbjclqro88 Ngfran303 lb 11.79 oz BMI Eyxtvycrou66.54 kg/m2 BSA Calculated1.75 O2 Qvdwzjvose98, RA Pre-Procedure Checklist Pre-Procedure Checklist Allergies were [...] complaint. Infusion Procedure PT PROVIDED WITH WRITTEN (Orecon PT EDUCATION SHEET) AND VERBAL EDUCATION REGARDING [...] IV s (more content not included)... Normal [facility] ([facility] - Chiropra ctic Manipulative Treatment)on 07-29-2022 Follow-up [...] back pain. She does workout with a agency trainer twice a week and tries to [...] Also unde (more content not included)... Normal [facility]ax Office Visit ([facility])on 07-29-2022 Follow-up visit Diagnoses/Problems Assessed Migraines (346.90) [...] been seen by a headache specialist at [facility], who diagnosed her with occipital neuralgia; she stated that she did 5 weeks of PT, and then plateaued ; the PT also attempted dry needling , which she found ineffective; she stated that she will be getting a second opinion with neurology next week; patient also visited a chiropractor in [place] who is a cervical specialist ; she [...] I discussed the risks and benefits of healthcare or medical. Based on the patient's subjective complaints along [...] contingent upon patient improvement. Post-Treatment Pain Level: 10. The patient noted relief of pain and [...] in February 2021. Is under care with [facility] recovery clinic. Had extensive imaging and testing [...] (780.79) (R53.83 (more content not included)... Normal [facility] Office Visit ([facility])on 07-15-2022 Follow-up visit Diagnoses/Problems Assessed Migraines (346.90) [...] been seen by a headache specialist at [facility], who diagnosed her with occipital neuralgia; she stated that she did 5 weeks of PT, and then plateaued ; the PT also attempted dry needling , which she found ineffective; she stated that she will be getting a second opinion with neurology next week; patient also visited a chiropractor in [place] who is a cervical specialist ; she [...] (Z78.9) Ma (more content not included)... Normal [facility] Office Visit ([facility])on 06-10-2022 Follow-up visit Diagnoses/Problems Assessed Migraines (346.90) [...] been seen by a headache specialist at [facility], who diagnosed her with occipital neuralgia; she stated that she did 5 weeks of PT, and then plateaued ; the PT also attempted dry needling , which she found ineffective; she stated that she will be getting a second opinion with neurology next week; patient also visited a chiropractor in [place] who is a cervical specialist ; she [...] illicit drug use Occasional caffeine consumption 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 No Known Drug Allergies Recorded By: Ashley Key; 10/07/19 (more content not included)... 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) Migraines (346.90) (G43.909) Vitamin D deficiency (268.9) (E55.9) Low libido (799.81) (R68.82) Post-menopausal (V49.81) (Z78.0) *Orders Cognitive changes, Health Maintenance, Fatigue Complete Blood Count + Differential; Status:Active; Requested for:48Tsi3990; Comprehensive Metabolic Panel; Status:Active; Requested for:42Xog6321; Folate, Serum; Status:Active; Requested for:15Oou5366; Insulin, Fasting; Status:Active; Requested for:00Tsa0276; TSH WITH REFLEX TO FREE T4 IF ABNORMAL; Status:Active; Requested for:38Zxp4005; Vitamin B12, Serum; Status:Active; Requested for:25Tkc7411; Low libido, Post-menopausal Sexual Medicine Referral Evaluation and Treatment Evaluate AND Treat Status: Hold For - Scheduling Requested for: 87Eat6952 Vitamin D deficiency Vitamin D 25-Hydroxy; Status:Active; Requested for:57Hda9533; Migraines (346.90) (G43.909) Post-acute sequelae of COVID-19 [...] presents for follow up History of Present Kfyjzvk8 y/o female with PMH anxiety, depression, migraines, insomnia, PASC presents for follow up. Referred by [facility] Erlin sanabria. 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 Lives with . [...] no major impact on fatigue - Sees retail personal banker- started pilates, TRX- twice weekly - Recognizes [...] swelling to (more content not included)... 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 Based on the patient's subjective complaints along [...] History of Present Illness Pre-Treatment Pain Level: 10. Neck and upper back pain 05/29/2022 -patient [...] in February 2021. Is under care with [facility]. Had extensive imaging and testing [...] of depression (more content not included)... Normal Hello[facility]ax Office Visit ([facility])on 05-25-2022 Follow-up visit Diagnoses/Problems Assessed Post-acute sequelae [...] struggling Patient has been working with a agency trainer; she was using the Pilates reformer [...] the COVID recovery clinic; please refer to er's notes for more extensive details Patient was [...] been seen by a headache specialist at [facility], who diagnosed her with occipital neuralgia; she stated that she did 5 weeks of PT, and then plateaued ; the PT also attempted dry needling , which she found ineffective; she stated that she will be getting a second opinion with neurology next week; patient also visited a chiropractor in [place] who is a cervical specialist ; she [...] illicit drug use Occasional caffeine consumption 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 Normal [facility] Office Visit (Sleep Medicine )on 05-11-2022 Follow-up [...] Please enroll patient's name in [facility] or [facility] if applicable. Performing Instructions to DME Supplier [...] out of 7 nights per week. Call [facility] at [phone] for any questions or concerns. As a [...] or mask interface, please FIRST contact your [employer] company. [employer] can be reached at [phone]. For questions concerning your SLEEP CLINIC appointment: Call [phone] . SLEEP LAB [phone] or [phone]. CAUTIONS for New PAP users: 1. You should know the [facility] compliance criteria if you have Medicare or [...] Sites: For patients with ALL SLEEP DISORDERS: [place] [employer] http://sleepeducation.org; or National Sleep Foundation: https://sleepfoundation.org For (more content not included)... Normal [facility] [place] Tobacco Screening.on Fall risk assessment a) No falls within the last year [facility] [address] Work Phone: Tobacco use status [facility] b) No [facility] [address] Work Phone: Office Visit ([facility])on 05-04-2022 Follow-up visit Diagnoses/Problems Assessed Fatigue (780.79) [...] been seen by a headache specialist at [facility], who diagnosed her with occipital neuralgia; she stated that she did 5 weeks of PT, and then plateaued ; the PT also attempted dry needling , which she found ineffective; she stated that she will be getting a second opinion with neurology next week; patient also visited a chiropractor in [place] who is a cervical specialist ; she [...] illicit drug use Occasional caffeine consumption 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 Normal HelloFax PT Progress Noteon 3 PT Progress Note No report was sent Normal HelloFax PT Progress Note Therapy Diagnosis Assessed Vertigo [...] progression. They are being discharged to their [facility]. Response to treatment: decreased pain, improved joint [...] code time is 40 minutes. Therapeutic exercise (39013): timed minutes 30, units 2 . UBE [...] added Lemperts maneuver to HEP. Manual Therapy (21867): timed minutes 10, units 1 . STM to rigjht Scalenes, [place]ator, [place] suboccipital releases with gentle traction includes vestibular testing . 'Scores and Scales' Signatures Electronically signed by : Manish Kramer, PT; May 04 2022 12:25PM EST (Author) Normal HelloFax Office Visit ([facility])on 04-13-2022 Follow-up visit Diagnoses/Problems Assessed Personal history [...] pain while she was on vacation in [place]; returning to [place], she is feeling a slight increase in [...] been seen by a headache specialist at [facility], who diagnosed her with occipital neuralgia; she stated that she did 5 weeks of PT, and then plateaued ; the PT also attempted dry needling , which she found ineffective; she stated that she will be getting a second opinion with neurology next week; patient also visited a chiropractor in [place] who is a cervical specialist ; she [...] History of Migraines. Objective Ortho positive Hallpike Franklin for right ear horizontal BPPV. added Lemperts maneuver to HEP. Treatment Time in clinic started at 8:30 am Time in clinic ended at 9:15 am Total time in clinic is 45 minutes. Total timed code time is 40 minutes. Therapeutic exercise (88174): timed minutes 25, units 2 . UBE [...] added Lemperts maneuver to HEP. Manual Therapy (08757): timed minutes 15, units 1 . 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 Inocencio Rosado, Neurologist Dr. Wilmer Carrillo and GARDEN EQUIPMENT MECHANIC Theron and Dr. Villalta at [facility], Psychiatry Dr. Tejeda, [facility] PRAV[facility] Young, Psychology Cristóbaldana Garcia, Sleep Medicine Dr. Jimenez Survey scores: [...] to energy during the day Meeting with retail personal banker twice per week to exercise Windshield Wiper Repairer notices improvement on cognitive abilities Not 100% pain free, still 1-2/10, can still function, that helps with mood and energy levels Still has to pace herself, this is helpful Weather changes seem to affect her symptoms Relevant Hx: -05/2021 ED for headache and panic attack -07/2021 Neurology at [facility] for headaches suspects cervical paraspinal mm [...] mild MYRIAM with O2 everette 82.3% -10/2021 surveillance monitor normal Blood work: -06/2021 spinal tap -08/2021 [...] cell carcinoma 2020 Scores and Scales MOCA Babt31Xpz4741 12:46PM IF NO, USE SLUMS EXAM Visuospatial/ Executive (5) Naming (3) I have been Certified to use this cognitive screening instrument, via training on www.mocatest.org.Yes Memory (0)0 Attention: Read List of Digits (2)2 Attention: Read List of Letters (1)1 Attention: Serial Sevens (3)3 Language: Repeat (2)1 Language: Fluency (1)0 Abstraction (2)2 Delayed Recall (5)4 Orientation (6)6 Total Score (30)19 Comments:Modified [place] Active Problems Problems Body aches (780.96) (R52) [...] code time is 25 minutes. Manual Therapy (78550): timed minutes 25, units 2 . Adelaide's maneuver x 2 for right posterior canal BPPV. 'Scores and Scales' Signatures Electronically signed by : Manish Kramer, PT; Apr 06 2022 12:34PM EST (Author) Normal [facility] [place] Tobacco Screening.on 022 Fall risk assessment a) No falls within the last year [facility] [place] Work Phone: Tobacco use status [facility] b) No [facility] [place] Work Phone: Office Visit ([facility])on 03-11-2022 Follow-up visit Diagnoses/Problems Assessed Migraines (346.90) [...] been seen by a headache specialist at [facility], who diagnosed her with occipital neuralgia; she stated that she did 5 weeks of PT, and then plateaued ; the PT also attempted dry needling , which she found ineffective; she stated that she will be getting a second opinion with neurology next week; patient also visited a chiropractor in [place] who is a cervical specialist ; she [...] Release 24 (more content not included)... Normal [facility] [...] UT, Levator, SCM, Suboccipitals, Scalenes. Negative Hallpike Franklin for left posterior BPPV. Issued HEP: 3 way pec stretches in the doorway, mid-rows, pull-downs, and shoulder reactive IR and ER isometrics. Treatment Time in clinic started at 8:30 am Time in clinic ended at 9:15 am Total time in clinic is 45 minutes. Total timed code time is 40 minutes. Therapeutic exercise (75641): timed minutes 25, units 2 . Pulleys: [address] pec stretches in door 2 x 30 sec each Midrows: PTT 12 x pulldowns: PTT 12 x Shlds ER / IR resistive Iso: PTT 10 x each each arm R UT stretches: 3 x 30 sec R Levator stretches: 3 x 30 sec. Manual Therapy (12287): timed minutes 15, units 1 . C1 thru C4 FRSR. corrections with METs STM right UT, Levator, SCM, Suboccipitals, Scalenes. 'Scores and Scales' Signatures Electronically signed by : Manish Kramer PT; Mar 11 2022 9:34AM EST (Author) Normal Touchworks Office Visit ([facility])on 03-04-2022 Follow-up visit Diagnoses/Problems Assessed Migraines (346.90) [...] been seen by a headache specialist at [facility], who diagnosed her with occipital neuralgia; she stated that she did 5 weeks of PT, and then plateaued ; the PT also attempted dry needling , which she found ineffective; she stated that she will be getting a second opinion with neurology next week; patient also visited a chiropractor in [place] who is a cervical specialist ; she [...] code time is 30 minutes. Manual Therapy (38435): timed minutes 30, units 2 . Adelaide's maneuver 2 trials for left BPPV. O/A FSL, C1 thru C4 FRSR. corrections with METs STM right UT, Levator, SCM, Suboccipitals, Scalenes. 'Scores and Scales' Signatures Electronically signed by : Manish Kramer, PT; Mar 04 2022 9:50AM EST (Author) Normal [facility] Psych[facility]ry Adulton 2 Psychiatry Adult Diagnoses/Problems Assessed [...] 03, 2022 at 11am virtual with this travel writer - May follow up sooner if experiences worsening symptoms by calling Psychiatry at - Patient verbalized an understanding to call [facility] at ([facility]), 211, or 761/go to the nearest emergency room if experiences [...] some weight. She is meeting with a agency trainer once a week and this week [...] the same (more content not included)... Normal HelloFax PT Progress Noteon 2 PT Progress Note No report was sent Normal Touchworks Office Visit ([facility])on 02-17-2022 Follow-up visit Diagnoses/Problems Assessed Migraines (346.90) [...] tomorrow on vacation for 1 week in [place] Initial intake (10/08/2021) Pt came in today [...] been seen by a headache specialist at [facility], who diagnosed her with occipital neuralgia; she stated that she did 5 weeks of PT, and then plateaued ; the PT also attempted dry needling , which she found ineffective; she stated that she will be getting a second opinion with neurology next week; patient also visited a chiropractor in [place] who is a cervical specialist ; she [...] entrance screeni (more content not included)... Normal HelloFax Office Visit ([facility])on 02-09-2022 Follow-up visit Diagnoses/Problems Assessed Migraines (346.90) [...] been seen by a headache specialist at [facility], who diagnosed her with occipital neuralgia; she stated that she did 5 weeks of PT, and then plateaued ; the PT also attempted dry needling , which she found ineffective; she stated that she will be getting a second opinion with neurology next week; patient also visited a chiropractor in [place] who is a cervical specialist ; she [...] included)... Normal [facility] PT Initial Evaluationon 01-24 PT Initial Evaluation Therapy Diagnosis Assessed Vertigo [...] diagnosed with COVID. Referred by: Flower Nguyễn, TAMMI Adult Risk Screening Initial Fall Risk Screening: [...] dizziness and headaches. . 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 Current Status: unchanged. Patient Awareness: Patient is aware of her diagnosis and prognosis. Living Environment: multi-story home and stairs with rails. Social Support: lives with spouse. Objective Ortho Forward bend test: veer to right Hallpike-Franklin Down right: upward rotational nystagmus Hallpike-Franklin Down left: negative Hallpike-Luis Miguel Up right: horizontal nystagmus to right Hallpike-Franklin Up left: right horizontal nystagmus Head turns [...] left, Nodding (more content not included)... Normal HelloFax Office Visit ([facility])on 02-05-2022 Follow-up visit Diagnoses/Problems Assessed Migraines (346.90) [...] been seen by a headache specialist at [facility], who diagnosed her with occipital neuralgia; she stated that she did 5 weeks of PT, and then plateaued ; the PT also attempted dry needling , which she found ineffective; she stated that she will be getting a second opinion with neurology next week; patient also visited a chiropractor in [place] who is a cervical specialist ; she [...] Capsule Extende (more content not included)... Normal HelloFax Chart Updateon 01-27-2022 Chart Update Diagnoses/Problems Vertigo (780.4) (R42) Orders Vertigo Physical Therapy - Vestibular Referral Evaluation and Treatment Evaluate AND Treat Status: Hold For - Scheduling Requested for: 27Jan2022 Ordered;For: Vertigo; Ordered By: Flower Nguyễn Performed: Due: 27Apr2022 Chart Update Patient requests referral to PT for vestibular rehab to address vertigo Signatures Electronically signed by : JOSSE Cardona; Jan 27 2022 6:04AM EST (Author) Normal Touchworks Office Visit ([facility])on 01-27-2022 Follow-up visit Diagnoses/Problems Assessed Migraines (346.90) [...] been seen by a headache specialist at [facility], who diagnosed her with occipital neuralgia; she stated that she did 5 weeks of PT, and then plateaued ; the PT also attempted dry needling , which she found ineffective; she stated that she will be getting a second opinion with neurology next week; patient also visited a chiropractor in [place] who is a cervical specialist ; she [...] including te (more content not included)... Normal Touchworks Office Visit ([facility])on 01-20-2022 Follow-up visit Diagnoses/Problems Assessed Migraines (346.90) [...] been seen by a headache specialist at [facility], who diagnosed her with occipital neuralgia; she stated that she did 5 weeks of PT, and then plateaued ; the PT also attempted dry needling , which she found ineffective; she stated that she will be getting a second opinion with neurology next week; patient also visited a chiropractor in [place] who is a cervical specialist ; she [...] R GB4 (more content not included)... Normal HelloFax Office Visit (Sleep Medicine )on 01-12-2022 Follow-up visit Diagnoses/Problems Assessed MYRIAM (obstructive sleep apnea) (327.23) (G47.33) Orders MYRIAM (obstructive sleep apnea) Positive Airway Pressure (PAP) Therapy; Status:Active; Requested for:[id number]; Perform:(Preferred) [employer]; Due:[id number];Ordered; For:MYRIAM (obstructive sleep apnea); Ordered By:Daniel Jimenez; Staff Performing Instructions (new machine setup only) : Please fax patient's demographics, current insurance information, recent testing (home sleep apnea test, in-lab sleep study, or oximetry test), and signed clinic note summary along with this order to the corresponding DME company. Additional Instructions to DME : Please enroll patient's name in [employer] or [employer]tor if applicable. Performing Instructions to DME Supplier [...] (E0601) : Yes Order Type : New masking machine feeder, new PAP supplies, and PAP education Length [...] out of 7 nights per week. Call [facility] at [phone] for any questions or concerns. As a [...] or mask interface, please FIRST contact your [employer] company. [employer] can be reached at [phone]. For questions concerning your SLEEP CLINIC appointment: Call [phone] . SLEEP LAB [phone] or [phone]. CAUTIONS for New PAP users: 1. You should know the [facility] compliance criteria if you have Medicare or [...] Sites: For patients with ALL SLEEP DISORDERS: [place] [employer] Medicin (more content not included)... Normal Touchworks Tobacco Screening.on 022 Fall risk assessment a) No falls within the last year [facility] [address] [place] Work Phone: Tobacco use status [facility] b) No [facility] [address] [place] Work Phone: Office Visit (Neuro-General) on 12-17-2021 [...] Dec 17 2021 9:43AM EST (Author) Normal HelloFax Office Visit ([facility])on 12-16-2021 Follow-up visit Diagnoses/Problems Assessed Migraines (346.90) [...] COVID-19 symptoms; she was referred by Flower Ngyuễn CNP, from the COVID recovery clinic; please [...] been seen by a headache specialist at [facility], who diagnosed her with occipital neuralgia; she stated that she did 5 weeks of PT, and then plateaued ; the PT also attempted dry needling , which she found ineffective; she stated that she will be getting a second opinion with neurology next week; patient also visited a chiropractor in [place] who is a cervical specialist ; she [...] DAILY NEE (more content not included)... Normal Touchworks Office Visit ( COVID Jet [...] to follow closely with neurology, Psychiatry, Psychology, [facility], Sleep Medicine, and their recommendations -consider vestibular [...] Thinking Changes after COVID-19 here: [email or web address] We will call you with the results of your tests. Further recommendations will follow based on testing results and your symptoms. Please return to COVID Recovery Clinic in 3-6 months, call [phone] if needed. Please also consider attending PICS support group for long-COVID and post-ICU patients. To contact support group, email [email or web address] or call [phone] Chief Complaint FUV: Symptoms are improving , pain has lessened, Adult Risk Screening Spiritual and Cultural: Patient Declined. Initial Fall Risk Screening: FLAQUITA has not fallen in the last 6 months. 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 Inocencio Rosado, Neurologist Dr. Wilmer Carrillo and TAMMI Tejeda and Dr. Villalta at [facility], Francisca Taylor, TAMMI, Psychiatry Dr. Tejeda, [facility] PRAVIN Young, Psychology Cristóbal Garcia Survey scores: PHQ-9: 21 [...] dissipated Rel (more content not included)... Normal HelloFax Office Visit ([facility])on 11-18-2021 Follow-up visit Diagnoses/Problems Assessed Migraines (346.90) [...] been seen by a headache specialist at [facility], who diagnosed her with occipital neuralgia; she stated that she did 5 weeks of PT, and then plateaued ; the PT also attempted dry needling , which she found ineffective; she stated that she will be getting a second opinion with neurology next week; patient also visited a chiropractor in [place] who is a cervical specialist ; she [...] GB41, L SJ5 TDP lamp: feet, 20min [place] in: 15 Needle (more content not included)... Normal Touchworks MOCA ([place] [facility])on 10-06-2021 MOCA ([place] Cognitive Assessment) Yes [facility] [address] [place] Work Phone: [phone] MOCA ([facility] Cognitive Assessment) 19 1 [facility] [address] [place] Work Phone: [phone] MOCA ([place] Cognitive Assessment) 6 1 [facility] [address] [place] Work Phone: [phone] MOCA ([facility] Cognitive Assessment) 0 1 [facility] [address] [place] Work Phone: [phone] MOCA ([facility] Cognitive Assessment) 1 1 [facility] [address] [place] Work Phone: [phone] MOCA ([facility] Cognitive Assessment) 4 1 [facility] [address] [place] Work Phone: [phone] MOCA ([place] Cognitive Assessment) Modified [facility] [address] [place] Work Phone: [phone] MOCA ([facility] Cognitive Assessment) 3 1 [facility] [address] [place] Work Phone: MOCA ([facility] Cognitive Assessment) 2 1 [facility] [address] [place] Work Phone: CNOVon 08-06-2021 CNOV Office Visit ([facility] ) FLAQUITA ROBERTSON ([id number]) 1955 F Date Time Provider Department 08/06/21 9:30 AM NANCY VILLALTA [facility] During your visit today, we recorded the following information about you: Pulse Blood pressure Weight Height 91/minute 143/83 74.8 kg 1.524 m Nancy Villalta DO 08/06/2021 10:46 AM Addendum Headache and Facial Pain [facility] [place] Charlene Ruiz [address] [address] Referring: SELF PCP: Benito iDaz MD Neurology was asked to evaluate Flaquita [...] unable to work - 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 Normal [facility] CNPLatia 07-24-2021 [facility] Telephone (NIQ) FLAQUITA ROBERTSON ([id number]) 1955 F Date Time Provider Department 07/24/21 NEUROLOGY PROVIDER NIQ During your visit today, we recorded the following information about you: Joy Kearney 07/24/2021 4:37 PM Signed Received reports from CT myelogram of complete spine. Uploaded to chart in Scanned Docs. Allergies As of Date: 07/24/2021 (Not on File) Date Reviewed: Never Reviewed Reason for Visit: Received Outside Medical Records [[id number]] Cmt: Imaging reports Problem List As Of Date: 07/24/2021 (None) Encounter Status:Closed by JOY KEARNEY on 07/24/[address] [facility] 07-15-2021 [facility] Telephone (NIQ) FLAQUITA ROBERTSON ([id number]) 1955 F Date Time Provider Department 07/15/21 NEUROLOGY PROVIDER NIQ During your visit today, we recorded the following information about you: Joy Kearney 07/15/2021 4:05 PM Signed OSH NI referral from Dr. Wilmer Carrillo, [facility], [place], [place] DX: intractable headache,migraines, borderline intracranial hypotension RFV: Evaluate and treat Scheduling instructions: Patient can see first available Headache specialist Patient to have CT myelogram spine at [facility] with Dr. Quintero. Outside records will be uploaded to chart in Scanned Docs. Allergies As of Date: 07/15/2021 (Not on File) Date Reviewed: Never Reviewed Reason for Visit: Received Outside Medical Records [[id number]] Cmt: OSH NI referral to Headache AND Facial Pain Problem List As Of Date: 07/15/2021 (None) Encounter Status:Closed by JOY KEARNEY on 07/15/21 Normal [facility] Vital Signs Date Time Vital Sign Value Performing Clinician Facility 05-24-2023 15:01-0500 Body height 152.4 cm Daniel Andersonary DO Work Phone: [facility] 05-24-2023 15:01-0500 Body mass index (BMI) [Ratio] 33.12 kg/m2 Naralberta Zhukhary DO Work Phone: [facility] 05-24-2023 15:01-0500 Body weight 76.93 kg Daniel Andersonary DO Work Phone: [facility] 05-24-2023 15:01-0500 Diastolic blood pressure 95 mm[Hg] Naralberta Zajeffersonary DO Work Phone: [facility] Comment on above: had a stressful morning 05-24-2023 15:01-0500 Heart rate 76 /min Daniel Zajeffersonary DO Work Phone: [facility] 05-24-2023 15:01-0500 Respiratory rate 18 /min Daniel Andersonary DO Work Phone: [facility] 05-24-2023 15:01-0500 SaO2% (BldA) [Mass fraction] 97 % Naralberta Andersonary DO Work Phone: [facility] 05-24-2023 15:01-0500 Systolic blood pressure 159 mm[Hg] Nardine Zakhary DO Work Phone: [facility] Comment on above: had a stressful morning 10-28-2022 11:00-0400 Body temperature 98.8 [degF] Inocencio Rosado Work Phone: [facility] [address] DO Work Phone: 10-28-2022 11:00-0400 Diastolic blood pressure 90 mm[Hg] Inocencio Rosado Work Phone: [facility] [address] DO Work Phone: 10-28-2022 11:00-0400 Heart rate 86 /min Inocencio Rosado Work Phone: [facility] [address] DO Work Phone: 10-28-2022 11:00-0400 Respiratory rate 16 /min Inocencio Rosado Work Phone: [facility] [address] DO Work Phone: 10-28-2022 11:00-0400 SaO2% (BldA) [Mass fraction] 96 % Inocencio Rosado Work Phone: [facility] [address] [place] Work Phone: 10-28-2022 11:00-0400 Systolic blood pressure 136 mm[Hg] Inocencio Rosado Work Phone: [facility] [address] DO Work Phone: 07-29-2022 11:00-0400 Body mass index (BMI) [Ratio] 33.54 kg/m2 Inocencio Rosado Work Phone: [facility] [address] DO Work Phone: 07-29-2022 11:00-0400 Body surface area Derived from formula 1.75 m2 Inocencio Gilmore Jonahchristiano Work Phone: [facility] [address] DO Work Phone: 07-29-2022 11:00-0400 Body temperature 97.9 [degF] Inocencio Gilmore Jonahchristiano Work Phone: [facility] [address] DO Work Phone: 07-29-2022 11:00-0400 Body weight 77.9 kg Inocencio Gilmore Ashlee Work Phone: [facility] [address] DO Work Phone: 07-29-2022 11:00-0400 Diastolic blood pressure 80 mm[Hg] Inocencio Gilmore Ashlee Work Phone: [facility] [address] DO Work Phone: 07-29-2022 11:00-0400 Heart rate 79 /min Inocencio Gilmore Ashlee Work Phone: [facility] [address] DO Work Phone: 07-29-2022 11:00-0400 Respiratory rate 16 /min Inocencio Gilmore Ashlee Work Phone: [facility] [address] DO Work Phone: 07-29-2022 11:00-0400 SaO2% (BldA) [Mass fraction] 99 % Inocencio Gilmore Ashlee Work Phone: [facility] [address] DO Work Phone: 07-29-2022 11:00-0400 Systolic blood pressure 138 mm[Hg] Inocencio Gilmore Ashlee Work Phone: [facility] [address] DO Work Phone: 05-11-2022 11:19-0500 Body height 152.4 cm Inocencio G Ashlee Work Phone: [facility] [address] Work Phone: 05-11-2022 11:19-0500 Body mass index (BMI) [Ratio] 32.22 kg/m2 Inocencio Mando Ashlee Work Phone: [facility] [facility] Work Phone: 05-11-2022 11:19-0500 Body surface area Derived from formula 1.72 m2 Inocencio Rosado Work Phone: [facility] [facility] Work Phone: 05-11-2022 11:19-0500 Body weight 74.84 kg Inocencio Rosado Work Phone: [facility] [facility] Work Phone: 05-11-2022 11:19-0500 Diastolic blood pressure 91 mm[Hg] Inocencio Rosado Work Phone: [facility] Work Phone: 05-11-2022 11:19-0500 Heart rate 80 /min Inocencio Rosado Work Phone: [facility] [facility] Work Phone: 05-11-2022 11:19-0500 Respiratory rate 18 /min Inocencio Rosaod Work Phone: [facility] [facility] Work Phone: 05-11-2022 11:19-0500 SaO2% (BldA) [Mass fraction] 98 % Inocencio Rosado Work Phone: [facility] [facility] Work Phone: 05-11-2022 11:19-0500 Systolic blood pressure 149 mm[Hg] Inocencio Rosado Work Phone: [facility] [facility] Work Phone: 05-11-2022 11:19-0500 0 1 Inocencio Rosado Work Phone: [facility] [facility] Work Phone: Comment on above: [facility] 04-06-20[facility] 11:45-0500 Body height 152.4 cm Inocencio Rosado [facility] Phone: [facility] Work Phone: 04-06-2022 11:45-0500 Body mass index (BMI) [Ratio] 32.81 kg/m2 Inocencio Rosado Work Phone: [facility] Work Phone: 04-06-2022 11:45-0500 Body surface area Derived from formula 1.73 m2 Inocencio Rosado Work Phone: [facility] Work Phone: 04-06-2022 11:45-0500 Body temperature 96.8 [degF] Inocencio Rosado Work Phone: [facility] Work Phone: 04-06-2022 11:45-0500 Body weight 76.2 kg Inocencio Rosado Work Phone: [facility] Work Phone: 04-06-2022 11:45-0500 Diastolic blood pressure 95 mm[Hg] Inocencio Rosado Work Phone: [facility] Work Phone: 04-06-2022 11:45-0500 Heart rate 77 /min Inocencio Rosado Work Phone: [facility] Work Phone: 04-06-2022 11:45-0500 Respiratory rate 16 /min Inocencio Rosado Work Phone: [facility] Work Phone: 04-06-2022 11:45-0500 SaO2% (BldA) [Mass fraction] 99 % Inocencio Rosado Work Phone: [facility] Work Phone: 04-06-2022 11:45-0500 Systolic blood pressure 139 mm[Hg] Inocencio Rosado Work Phone: [facility] Work Phone: 01-12-2022 11:11-0400 Body mass index (BMI) [Ratio] 32.03 kg/m2 Inocencio Rosado Work Phone: [facility] [address] [place] Work Phone: 01-12-2022 11:11-0400 Body surface area Derived from formula 1.72 m2 Inocencio Rosado Work Phone: [facility] [address] [place] Work Phone: 01-12-2022 11:11-0400 Body weight 74.39 kg Inocencio Rosado Work Phone: [facility] [address] [place] Work Phone: 01-12-2022 11:11-0400 Diastolic blood pressure 97 mm[Hg] Inocencio Rosado Work Phone: [facility] [address] [place] Work Phone: 01-12-2022 11:11-0400 Heart rate 91 /min Inocencio Rosado Work Phone: [facility] [address] [place] Work Phone: 01-12-2022 11:11-0400 SaO2% (BldA) [Mass fraction] 97 % Inocencio Rosado Work Phone: [facility] Work Phone: 01-12-2022 11:11-0400 Systolic blood pressure 135 mm[Hg] Inocencio Rosado Work Phone: [facility] [address] Work Phone: 01-12-2022 11:11-0400 0 1 Inocencio Rosado Work Phone: [facility] Work Phone: Comment on above: [facility] 12-15-2021 11:40-0400 Body height 152.4 cm Inocencio Rosado Work Phone: [facility] [address] [place] Work Phone: 12-15-2021 11:40-0400 Body mass index (BMI) [Ratio] 32.03 kg/m2 Inocencio Mando Rosado Work Phone: [facility] [address] [place] Work Phone: 12-15-2021 11:40-0400 Body surface area Derived from formula 1.72 m2 Inocencio Rosado Work Phone: [facility] [address] [place] Work Phone: 12-15-2021 11:40-0400 Body temperature 97.8 [degF] [facility]ado [facility] [place] Work Phone: 12-15-2021 11:40-0400 Body weight 74.39 kg Inocencio Rosado Work Phone: [facility] [address] [place] Work Phone: 12-15-2021 11:40-0400 Diastolic blood pressure 89 mm[Hg] Inocencio Rosado Work Phone: [facility] [address] [place] Work Phone: 12-15-2021 11:40-0400 Heart rate 75 /min Inocencio Rosado Work Phone: [facility] [address] [place] Work Phone: 12-15-2021 11:40-0400 SaO2% (BldA) [Mass fraction] 97 % Inocencio Rosado Work Phone: [facility] [address] [place] Work Phone: 12-15-2021 11:40-0400 Systolic blood pressure 136 mm[Hg] Inocencio Rosado Work Phone: [facility] [address] [place] Work Phone: 10-16-2021 15:42-0400 Body height 152.4 cm Referring Provider Unknown Puneet Ross [facility] Work Phone: 10-16-2021 15:42-0400 Body mass index (BMI) [Ratio] 32.22 kg/m2 Referring Provider Unknown Puneet Ross [facility] Work Phone: 10-16-2021 15:42-0400 Body surface area Derived from formula 1.72 m2 Referring Provider Unknown Puneet Ross [facility] Work Phone: 10-16-2021 15:42-0400 Body weight 74.84 kg Referring Provider Unknown Puneet Ross [facility] Work Phone: 10-06-2021 12:49-0400 Body height 152.4 cm Referring Provider Unknown [facility] [address] [place] Work Phone: 10-06-2021 12:49-0400 Body mass index (BMI) [Ratio] 32.22 kg/m2 Referring Provider Unknown [facility] [address] [place] Work Phone: 10-06-2021 12:49-0400 Body surface area Derived from formula 1.72 m2 Referring Provider Unknown [facility] [address] [place] Work Phone: 10-06-2021 12:49-0400 Body temperature 98 [degF] Referring Provider Unknown [facility] [address] [place] Work Phone: 10-06-2021 12:49-0400 Body weight 74.84 kg Referring Provider Unknown [facility] [address] [place] Work Phone: 10-06-2021 12:49-0400 Diastolic blood pressure 87 mm[Hg] Referring Provider Unknown [facility] [address] [place] Work Phone: 10-06-2021 12:49-0400 Heart rate 96 /min Referring Provider Unknown [facility] [address] [place] Work Phone: 10-06-2021 12:49-0400 SaO2% (BldA) [Mass fraction] 99 % [facility] [place] Work Phone: 10-06-2021 12:49-0400 Systolic blood pressure 126 mm[Hg] Ref[facility] [place] Work Phone: 08-06-2021 09:10-0400 Body height 152.4 cm Nancy Villalta DO Work Phone: [facility] 08-06-2021 09:10-0400 Body weight 74.84 kg Nancy Villalta DO Work Phone: [facility] 08-06-2021 09:10-0400 Diastolic blood pressure 83 mm[Hg] Nancy Villalta DO Work Phone: [facility] 08-06-2021 09:10-0400 Heart rate 91 /min Nancy Villalta DO Work Phone: [facility] 08-06-2021 09:10-0400 Systolic blood pressure 143 mm[Hg] Nancy Villalta DO Work Phone: [facility] Encounters Encounter Date Encounter Type Care Provider Facility Start: 03-01-2024 End: 03-01-2024 ambulatory Francesco Bermeo Facility:[facility] Start: 02-08-2024 End: 02-08-2024 ambulatory Francesco Vazquez Jean-Claude Facility:[facility] Start: 02-02-2024 End: 02-02-2024 [facility] Francesco Vazquez Jean-Claude Facility:[facility] Start: 01-31-2024 End: 01-31-2024 Office outpatient visit 25 minutes Zoie Tejeda 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 Work Phone: [facility] Comment on above: Migraine without aur a and without status migrainosus, not intractable (Primary Dx) Start: 12-28-2023 End: 12-28-2023 ambulatory NICOLE Vazquez [place] Facility:[facility] Start: 11-10-2023 End: 11-10-2023 ambulatory NICOLE P HOUSE Facility:[facility] Start: 10-12-2023 End: 10-12-2023 ambulatory NICOLE P HOUSE Facility:[facility] Start: 10-11-2023 End: 10-11-2023 ambulatory NICOLE P HOUSE Facility:[facility] Start: 10-07-2023 End: 10-07-2023 ambulatory NICOLE P HOUSE Facility:[facility] Start: 09-27-2023 End: 09-27-2023 ambulatory DO NICOLE P HOUSE Facility:[facility] Start: 06-29-2023 End: 06-29-2023 ambulatory DO NICOLE P HOUSE Facility:[facility] Start: 05-24-2023 End: 05-24-2023 Office outpatient visit 15 minutes Daniel Zhujeffersonlima DO Work Phone: [facility] Comment on above: MYRIAM (obstructive sle ep apnea) (Primary Dx) Start: 05-05-2023 End: 05-05-2023 ambulatory DO RIVERA P FRAN Facility:[facility] Start: 03-30-2023 End: 03-30-2023 ambulatory Ashu Goff Facility:[facility] Start: 03-30-2023 End: 03-30-2023 ambulatory MD Inocencio Rosado Work Phone: [facility] Work Phone: Start: 03-30-2023 End: 03-30-2023 Patient encounter procedure MD Inocencio Rosado Work Phone: [facility] [place] Work Phone: Start: 03-30-2023 End: 03-30-2023 ambulatory Inocencio Rosado MD Facility:[facility] Start: 03-30-2023 End: 03-30-2023 ambulatory Inocencio Rosado MD Facility:[facility] Start: 10-28-2022 Patient encounter procedure Inocencio Rosado Work Phone: [facility] [place] [address] [place] Work Phone: Start: 10-28-2022 ambulatory Ms. Cosme Dawn randy Tiwari Facility: Start: 10-22-2022 ambulatory Eve Prosak Facility:[id number] Start: 09-24-2022 AUDIT Inocencio Blanchard an Work Phone: UD-Cpsijeuvu-Iwtuexua [address] Work Phone: Start: 09-23-2022 AUDIT Inocencio lara Work Phone: IF-Lghiyffzw-Svfvqzpg [address] Work Phone: Start: 09-17-2022 ambulatory Eve Prosak Facility:[id number] Start: 09-01-2022 ambulatory Eve Prosak Facility:[id number] Start: 07-29-2022 ambulatory MsMaximiliano Villalobos [facility] ity:[id number] Start: 07-29-2022 Patient encounter procedure Inocencio Rosado Work Phone: [facility] Work Phone: Start: 07-29-2022 ambulatory Ms. Cosme Tiwari Facility: Start: 07-15-2022 Patient encounter procedure Inocencio Rosado Work Phone: [facility] Work Phone: Start: 07-15-2022 ambulatory PAC LISSA YOUNG Facility:[id number] Start: 06-11-2022 AUDIT Inocencio Blanchard an Work Phone: UM-Kpdvvlezn-Rtdxawge [address] Work Phone: Start: 06-10-2022 FUVACUPUNC, Provider : Griselda Hammonds, Status: Pen, Time: 5:00 PM Inocencio Rosado Work Phone: MV-Aihpqtztl-Tjhrrlhu [address] Work Phone: Start: 06-10-2022 FUV, Provider: Lissa Young, Status: Pen, Time: 4:00 PM Inocencio Rosado Work Phone: UA-Djbqplkla-Ofzfusdi [address] Work Phone: Start: 06-10-2022 Office outpatient vi sit 40 minutes Inocencio Rosado [facility] Work Phone: Start: 06-10-2022 Patient encounter procedure Inocencio Gilmore Ashlee Work Phone: [facility] Work Phone: Start: 06-10-2022 ambulatory Ms. Griselda Hammonds Facil ity:[id number] Start: 06-10-2022 MERLE, Provider: Xavier Osorio, Status: Pen, Time: 2:20 PM Inocencio Rosado Work Phone: BT-Niurvzvqy-Knmuonwh [address] Work Phone: Start: 06-08-2022 AUDIT Inocencio Blanchard an Work Phone: VT-Skoywmjvs-Wnndutzj [address] Work Phone: Start: 06-03-2022 Office outpatient vi sit 25 minutes Inocencio Rosado Work Phone: SV-Nziijepzj-Mfyxhmuk [address] Work Phone: Start: 06-03-2022 ambulatory Zoie Tejeda Facility:[id number] Start: 05-29-2022 Office outpatient ne w 30 minutes Inocencio Rosado Work Phone: [facility] Work Phone: Start: 05-29-[address] Xavier Osorio Facility:[id number] Start: 05-25-2022 ambulatory Ms. Griselda Hammonds Facil ity:[id number] Start: 05-11-2022 ambulatory Daniel Jimenez Facilit y:[id number] Start: 05-11-2022 Current tobacco non-user cad cap copd pv dm Inocencio Rosado Work Phone: [facility]-Pulm Sleep-[place] [address] Work Phone: Start: 05-04-2022 ambulatory Ms. Griselda Hammonds Facil ity:[id number] Start: 05-04-2022 ambulatory Ms. Flower Nguyễn Facil ity:[id number] Start: 05-04-2022 Patient encounter procedure Inocencio Rosado Work Phone: [facility] Work Phone: Start: 04-13-2022 ambulatory Ms. Griselda Hammonds Facil ity:[id number] Start: 04-13-2022 ambulatory Ms. Flower Nguyễn Facil ity:[id number] Start: 04-13-2022 Patient encounter procedure Inocencio Rosado Work Phone: [facility] Work Phone: Start: 04-06-2022 ambulatory Flower Nguyễn Facility: [facility] Start: 04-06-2022 ambulatory Ms. Flower Nguyễn Facil ity:[id number] Start: 04-06-2022 Patient encounter procedure Inocencio Rosado Work Phone: [facility] Work Phone: Start: 03-11-2022 ambulatory Ms. Griselda Hammonds Facil ity:[id number] Start: 03-11-2022 ambulatory Ms. Flower Nguyễn Facil ity:[id number] Start: 03-11-2022 Patient encounter procedure Inocencio Rosado Work Phone: [facility] Work Phone: Start: 03-04-2022 FUVACUPUNC, Provider : Griselda Hammonds, Status: Tyson, Time: 11:00 AM Inocencio Mckenziechristiano Work Phone: [address] Work Phone: Start: 03-04-2022 ambulatory Ms. Griselda Hammonds Facil ity:[id number] Start: 03-04-2022 Patient encounter procedure Inocencio Gilmore Ashlee Work Phone: [facility] Work Phone: Start: 03-04-2022 PTFUADULT4, Provider : Manish Kramer, Status: Pen, Time: 8:30 AM Inocencio G Ashlee Work Phone: [facility] [address] [place] Work Phone: Start: 03-04-2022 ambulatory Ms. Flower Nguyễn Facil ity:[id number] Start: 03-02-2022 Office outpatient vi sit 15 minutes Inocencio Mando Rosado Work Phone: [facility] [address] [place] Work Phone: Start: 02-18-2022 ambulatory Ms. Flower Castillo ity:[id number] Start: 02-18-2022 PTFUADULT4, Provider : Manish Kramer, Status: Pen, Time: 9:15 AM Inocencio Rosado Work Phone: [facility] Work Phone: Start: 02-17-2022 ambulatory Ms. Griselda Hammonds Facil ity:[id number] Start: 02-17-2022 Patient encounter procedure Inocencio Rosado Work Phone: [facility] Work Phone: Start: 02-09-2022 Patient encounter procedure Inocencio Rosado Work Phone: [facility] Work Phone: Start: 02-09-2022 ambulatory Ms. Griselda Hammonds Facil ity:[id number] Start: 02-09-2022 Patient encounter procedure [facility]ocencio Rosado Work [facility]: [facility] Work Phone: Start: 02-09-2022 ambulatory Ms. Flower Nguyễn Facil ity:[id number] Start: 02-05-2022 ambulatory Ms. Griselda Hammonds Facil ity:[id number] Start: 01-27-2022 AUDIT Inocencio lara Work Phone: [facility] Work Phone: Start: 01-27-2022 ambulatory Ms. Griselda Hammonds Facil ity:[id number] Start: 01-20-2022 Patient encounter procedure Inocencio Rosado Work Phone: [facility] Work Phone: Start: 01-20-2022 ambulatory Ms. Griselda Hammonds Facil ity:[id number] Start: 01-13-2022 Rx Renewal Inocencio Blanchard an Work Phone: HK-Whwldjgiro-Hzwhno [facility] Work Phone: Start: 01-12-2022 Current tobacco non-user cad cap copd pv dm Inocencio Gilmore Jonahchristiano Work Phone: [facility] [address] [place] Work Phone: Start: 01-12-2022 ambulatory Clayalberta Audrajeffersonlima Facilit y:[id number] Start: 12-17-2021 VIRBRIANA, Provider : Zoie Tejeda, Status: Pen, Time: 9:30 AM Inocencio G Jonahchristiano Work Phone: [facility] [address] [place] Work Phone: Start: 12-17-2021 ambulatory Zoie Tejeda Facility:[id number] Start: 12-16-2021 ambulatory Ms. Griselda Hammonds Facil ity:[id number] Start: 12-16-2021 FUVACUPJENARO, Provider : Griselda Hammonds, Status: Pen, Time: 10:30 AM Inocencio G Jonahchristiano Work Phone: [facility] [address] [place] Work Phone: Start: 12-16-2021 Patient encounter procedure Inocencio Gilmore Jonahchristiano Work Phone: [facility] Work Phone: Start: 12-15-2021 Patient encounter procedure Inocencio Gilmore Ashlee Work [facility]: [facility] [place] Work Phone: Start: 12-15-2021 ambulatory Flower Nguyễn Facility: [facility] Start: 11-21-[address] Aundrea goode [facility] Facility: Start: 11-18-2021 ambulatory Ms. Griselda Hammonds Facil ity:[id number] Start: 11-18-2021 Patient encounter procedure Inocencio Rosado Work Phone: [facility] Work Phone: Start: 11-12-2021 Patient encounter procedure Inocencio Rosado Work Phone: [facility] Work Phone: Start: 11-12-2021 ambulatory Yakelin Acosta Facility:[id number] Start: 11-04-2021 ambulatory Ms. Griselda Hammonds Facil ity:[id number] Start: 11-04-2021 Patient encounter procedure Inocencio Rosado Work Phone: [facility] [address] DO Work Phone: Start: 11-04-2021 ambulatory [employer]CH[employer] LOKESH NGUYỄN Facil ity: Start: 10-24-2021 Office outpatient ne w 60 minutes Referring Provider Unknown [facility] Work Phone: Start: 10-24-2021 Telephone encounter Referring Provider Unknown [facility] [address] [place] Work Phone: Start: 10-17-2021 Patient encounter procedure Referring Provider Unknown [facility] 130 [place] Work Phone: Start: 10-16-2021 SHANDA, Provider : Joana Tejeda, Status: Pen, Time: 3:00 PM Referring Provider Unknown YQ-Nkwattkwv-Zrkkeoiw B [address] Work Phone: Start: 10-16-2021 TRA, Provider : Griselda Hammonds, Status: Pen, Time: 11:30 AM Referring Provider Unknown BH-Reejixass-Cqupifzf B [address] Work Phone: Start: 10-15-2021 Office outpatient ne w 45 minutes Referring Provider Unknown HW-Ulgalydth-Psjyufwm [address] Work Phone: Start: 10-08-2021 AUDIT Referring Prov ider Unknown [facility]-Pulm Sleep-[facility] 3100 Work Phone: Start: 10-08-2021 NPVACUPUNC, Provider : Griselda Hammonds, Status: Pen, Time: 1:00 PM Referring Provider Unknown [facility] [address] [place] Work Phone: Start: 10-08-2021 Patient encounter procedure Referring Provider Unknown [facility] Work Phone: Start: 10-06-2021 Patient encounter procedure Referring Provider Unknown [facility] [address] [place] Work Phone: Start: 10-06-2021 ambulatory PCP UNKNOWN Facility:[facility] Start: 09-19-2021 Orders Only Nancy [...] Appendectomy Inocencio graff Work Phone: Colonoscopy Inocencio Gilmore Jp graff Work Phone: Endoscopy Inocencio G Jp graff Work Phone: Hysterectomy Referring Provi bailey Unknown Ligation of fallopian tube Regina Gilmore Ashlee Work Phone: Tonsillectomy and adenoidectomy Inocencio Gilmore Ashlee Work Phone: Plan of Treatment Date Care Activity Detail Author Start: 04-07-2031 Screening for malignant neoplasm of colon [facility] Start: 11-18-2025 DTaP/Tdap/Td Vaccines (2 - Td or Tdap) DTaP/Tdap/Td Vaccines (2 - Td or Tdap) [facility] Start: 05-25-2024 End: 05-25-2024 Patient encounter procedure 05/25/2024 3:00 PM EST Office Visit [facility] [address] [place] [id number] Daniel Jimenez DO [address] [place] [address] [facility] Start: 02-22-2024 Zoster Vaccines (2 of 2) Zoster Vaccines (2 of 2) [facility] Start: 02-08-2024 End: 02-08-2024 ambulatory 02/08/2024 10:00 AM EDT Infusion [facility] [address] [place] [id number] [facility] Start: 12-26-2023 COVID-19 Vaccine ( season) COVID-19 Vaccine ( season) [facility] Start: 12-26-2023 Influenza vaccination Influenza Vaccine (#1) [facility] Start: 07-30-2023 End: 07-30-2023 ambulatory 07/30/2023 11:00 AM EDT Infusion [facility] [address] [place] [id number] [facility] Start: 05-10-2023 FUV, Provider: Daniel Jimenez, Status: Pen, Time: 11:00 AM FUV, Provider: Daniel Jimenez, Status: Pen, Time: 11:00 AM [facility] [address] Work Phone: Start: 03-30-2023 MR Orbit WO and W contrast IV [facility] Start: 03-30-2023 MRI of orbit with contrast MR orbit wo/w con [facility] Start: 03-30-2023 MR Unspecified body region [facility] Start: 03-30-2023 MRI of head MR head/brain wo/w [facility] Start: 01-28-2023 [id number], Provider: [facility] INFUSION ROOM 01,[id number], Status: Pen, Time: 11:00 AM [id number], Provider: [facility] INFUSION ROOM 01,[id number], Status: Pen, Time: 11:00 AM [facility] [address] DO Work Phone: Start: 12-25-2022 COVID-19 Vaccine ( season) COVID-19 Vaccine ( season) [facility] Start: 11-12-2022 FUVACUPUNC, Provider: Griselda Hammonds, Status: Pen, Time: 11:00 AM FUVACUPUNC, Provider: Griselda Hammonds, Status: Pen, Time: 11:00 AM FA-Gzsxztfyh-Kqzirwgt B [address] Work Phone: Start: 11-12-2022 FUVCHIRO, Provider: Eve Mccollum, Status: Pen, Time: 10:40 AM FUVCHIRO, Provider: Eve Mccollum, Status: Pen, Time: 10:40 AM SN-Knguqjlhx-Rsnqvhsq B [address] Work Phone: Start: 10-28-2022 [id number], Provider: [facility] INFUSION ROOM 04,[id number], Status: Pen, Time: 11:00 AM [id number], Provider: [facility] INFUSION ROOM 04,[id number], Status: Pen, Time: 11:00 AM [facility] [place] [address] [place] Work Phone: Start: 10-22-2022 FUVACUPUNC, Provider: Griselda Hammonds, Status: Pen, Time: 11:30 AM FUVACUPUNC, Provider: Griselda Hammonds, Status: Pen, Time: 11:30 AM ZY-Mkplabuun-Uktjzrmi B [address] Work Phone: Start: 10-22-2022 FUVCHIRO, Provider: Eve Mccollum, Status: Pen, Time: 11:00 AM FUVCHIRO, Provider: Eve Mccollum, Status: Pen, Time: 11:00 AM JL-Kaqozvvls-Hpmbyttv [address] Work Phone: Start: 10-01-2022 FUVACUPUNC, Provider: Griselda Hammonds, Status: Pen, Time: 11:00 AM FUVACUPUNC, Provider: Griselda Hammonds, Status: Pen, Time: 11:00 AM [facility] Work Phone: Start: 10-01-2022 FUVCHIRO, Provider: Eve Mccollum, Status: Pen, Time: 10:20 AM FUVCHIRO, Provider: Eve Mccollum, Status: Pen, Time: 10:20 AM -[facility] Work Phone: Start: 09-17-2022 FUVACUPUNC, Provider: Griselda Hammonds, Status: Pen, Time: 11:00 AM FUVACUPUNC, Provider: Griselda Hammonds, Status: Pen, Time: 11:00 AM MP-[facility] Work Phone: Start: 09-17-2022 FUVCHINII, Provider: Eve Mccollum, Status: Pen, Time: 10:20 AM FUVCHIRO, Provider: Eve Mccollum, Status: Pen, Time: 10:20 AM [facility] Work Phone: Start: 09-01-2022 FUVACUPUNC, Provider: Griselda Hammonds, Status: Pen, Time: 12:00 PM FUVACUPUNC, Provider: Griselda Hammonds, Status: Pen, Time: 12:00 PM [employer] Phone: Start: 09-01-2022 FUVCHIRO, Provider: Eve Mccollum, Status: Pen, Time: 11:40 AM FUVCHIRO, Provider: Eve Mccollum, Status: Pen, Time: 11:40 AM [employer] Phone: Start: 08-20-2022 FUVACUPUNC, Provider: Griselda Hammonds, Status: Pen, Time: 2:00 PM FUVACUPUNC, Provider: Griselda Hammonds, Status: Pen, Time: 2:00 PM [employer] Phone: Start: 08-20-2022 FUVCHIRO, Provider: Eve Mccollum, Status: Pen, Time: 1:40 PM FUVCHIRO, Provider: Eve Mccollum, Status: Pen, Time: 1:40 PM [employer] Phone: Start: 07-30-2022 Adult depression screening assessment DEPRESSION SCREENING [facility] Start: 07-29-2022 FUVACUPUNC, Provider: Griselda Hammonds, Status: Pen, Time: 3:00 PM FUVACUPUNC, Provider: Griselda Hammonds, Status: Pen, Time: 3:00 PM [employer] Phone: Start: 07-29-2022 FUVCHIRO, Provider: Eve Mccollum, Status: Pen, Time: 2:20 PM FUVCHIRO, Provider: Eve Mccollum, Status: Pen, Time: 2:20 PM [employer] Phone: Start: 07-15-2022 FUVACUPUNC, Provider: Griselda Hammonds, Status: Pen, Time: 12:30 PM FUVACUPUNC, Provider: Griselda Hammonds, Status: Pen, Time: 12:30 PM [facility] Work Phone: Start: 07-15-2022 FUVCHIRO, Provider: Xavier Osorio, Status: Pen, Time: 12:00 PM FUVCHIRO, Provider: Xavier Osorio, Status: Pen, Time: 12:00 PM [facility] Work Phone: Start: 07-03-2022 FUVCHIRO, Provider: Xavier Osorio, Status: Pen, Time: 2:20 PM FUVCHIRO, Provider: Xavier Osorio, Status: Pen, Time: 2:20 PM GF-Scgosecdc-Rupbogob [address] Work Phone: Start: 07-01-2022 FUVACUPUNC, Provider: Griselda Hammonds, Status: Pen, Time: 3:00 PM FUVACUPUNC, Provider: Griselda Hammonds, Status: Pen, Time: 3:00 PM [facility] Work Phone: Start: 07-01-2022 FUVCHIRO, Provider: Xavier Osorio, Status: Pen, Time: 2:40 PM FUVCHIRO, Provider: Xavier Osorio, Status: Pen, Time: 2:40 PM [facility] Work Phone: Start: 06-10-2022 FUVACUPUNC, Provider: Griselda Hammonds, Status: Pen, Time: 5:00 PM FUVACUPUNC, Provider: Griselda Hammonds, Status: Pen, Time: 5:00 PM MP-[employer] [facility] Work Phone: Start: 06-10-2022 FUV, Provider: Lissa Young, Status: Pen, Time: 4:00 PM FUV, Provider: Lissa Young, Status: Pen, Time: 4:00 PM [facility] Work Phone: Start: 06-10-2022 FUVCHIRO, Provider: Xavier Osorio, Status: Pen, Time: 2:20 PM FUVCHIRO, Provider: Xavier Osorio, Status: Pen, Time: 2:20 PM [facility] Work Phone: Start: 06-03-2022 VIRFUVHOME, Provider: Joana Tejeda, Status: Pen, Time: 11:00 AM VIRFUVPAPIE, Provider: Joana Tejeda, Status: Pen, Time: 11:[address] Work Phone: Start: 06-03-2022 VIRFUVPAPIE, Provider: Zoie Tejeda, Status: Pen, Time: 9:30 AM VIRFUVHOME, Provider: Zoie Tejeda, Status: Pen, Time: 9:30 AM [facility] Work Phone: Start: 05-25-2022 FUVACUPUNC, Provider: Griselda Hammonds, Status: Pen, Time: 11:00 AM FUVACUPUNC, Provider: Griselda Hammonds, Status: Pen, Time: 11:00 AM [facility] Work Phone: Start: 05-11-2022 FUV, Provider: Daniel Jimenez, Status: Pen, Time: 11:00 AM FUV, Provider: Daniel Jimenez, Status: Pen, Time: 11:[address] Work Phone: Start: 05-04-2022 FUVACUPUNC, Provider: Griselda Hammonds, Status: Pen, Time: 12:00 PM FUVACUPUNC, Provider: Griselda Hammonds, Status: Pen, Time: 12:00 PM [facility] Work Phone: Start: 05-04-2022 PTFUADULT4, Provider: Manish Kramer, Status: Pen, Time: 9:15 AM PTFUADULT4, Provider: Manish Kramer, Status: Pen, Time: 9:15 AM [facility] Work Phone: Start: 04-22-2022 PTFUADULT4, Provider: Manish Kramer, Status: Pen, Time: 8:30 AM PTFUADULT4, Provider: Manish Kramer, Status: Pen, Time: 8:30 AM [facility] Work Phone: Start: 04-13-2022 FUVACUPUNC, Provider: Griselda Hammonds, Status: Pen, Time: 11:00 AM FUVACUPUNC, Provider: Griselda Hammonds, Status: Pen, Time: 11:00 AM [facility] Work Phone: Start: 04-13-2022 PTFUADULT4, Provider: Manish Kramer, Status: Pen, Time: 8:30 AM PTFUADULT4, Provider: Manish Kramer, Status: Pen, Time: 8:30 AM [facility] Work Phone: Start: 04-06-2022 Patient encounter procedure FUVCOVID, Provider: [id number], Status: Pen, Time: 11:30 AM COVID Recovery [address] Work Phone: Start: 04-06-2022 PTFUADULT4, Provider: Manish Kramer, Status: Pen, Time: 9:15 AM PTFUADULT4, Provider: Manish Kramer, Status: Pen, Time: 9:15 AM [facility] Work Phone: Start: 04-01-2022 PTFUADULT4, Provider: Manish Kramer, Status: Pen, Time: 2:00 PM PTFUADULT4, Provider: Manish Kramer, Status: Pen, Time: 2:00 PM [facility] Work Phone: Start: 04-01-2022 FUVACUPUNC, Provider: Griselda Hammonds, Status: Pen, Time: 10:30 AM FUVACUPUNC, Provider: Griselda Hammonds, Status: Pen, Time: 10:30 AM [facility] Work Phone: Start: 04-01-2022 PTFUADULT4, Provider: Manish Kramer, Status: Pen, Time: 8:30 AM PTFUADULT4, Provider: Manish Kramer, Status: Pen, Time: 8:30 AM [facility] Work Phone: Start: 03-11-2022 FUVACUPUNC, Provider: Griselda Hammonds, Status: Pen, Time: 11:00 AM FUVACUPUNC, Provider: Griselda Hammonds, Status: Pen, Time: 11:00 AM [facility] Work Phone: Start: 03-11-2022 PTFUADULT4, Provider: Manish Kramer, Status: Pen, Time: 8:30 AM PTFUADULT4, Provider: Manish Kramer, Status: Pen, Time: 8:30 AM [facility] Work Phone: Start: 03-05-2022 FUVACUPUNC, Provider: Griselda Hammonds, Status: Pen, Time: 11:00 AM FUVACUPUNC, Provider: Griselda Hammonds, Status: Pen, Time: 11:00 AM [facility] Work Phone: Start: 03-04-2022 FUVACUPUNC, Provider: Griselda Hammonds, Status: Pen, Time: 11:00 AM FUVACUPUNC, Provider: Griselda Hammonds, Status: Pen, Time: 11:00 AM [facility] Work Phone: Start: 03-04-2022 PTFUADULT4, Provider: Manish Kramre, Status: Pen, Time: 8:30 AM PTFUADULT4, Provider: Manish Kramer, Status: Pen, Time: 8:30 AM [facility] Work Phone: Start: 03-02-2022 VIRFUVKIARRA, Provider: Joana Tejeda, Status: Pen, Time: 9:30 AM VIRFUVHOME, Provider: Joana Tejeda, Status: Pen, Time: 9:30 AM -[address] Work Phone: Start: 02-17-2022 FUVACUPUNC, Provider: Griselda Hammonds, Status: Pen, Time: 11:00 AM FUVACUPUNC, Provider: Griselda Hammonds, Status: Pen, Time: 11:00 AM [facility] Work Phone: Start: 02-10-2022 FUVACUPUNC, Provider: Griselda Hammonds, Status: Pen, Time: 2:30 PM FUVACUPUNC, Provider: Griselda Hammonds, Status: Pen, Time: 2:30 PM [facility] Work Phone: Start: 02-09-2022 PTEVAADULT, Provider: Manish Kramer, Status: Pen, Time: 9:15 AM PTEVAADULT, Provider: Manish Kramer, Status: Pen, Time: 9:15 AM [facility] Work Phone: Start: 02-05-2022 FUVACUPUNC, Provider: Griselda Hammonds, Status: Pen, Time: 10:30 AM FUVACUPUNC, Provider: Griselda Hammonds, Status: Pen, Time: 10:30 AM [facility] Work Phone: Start: 01-27-2022 FUVACUPUNC, Provider: Griselda Hammonds, Status: Pen, Time: 10:30 AM FUVACUPUNC, Provider: Griselda Hammonds, Status: Pen, Time: 10:30 AM [facility] Work Phone: Start: 01-20-2022 FUVACUPUNC, Provider: Griselda Hammonds, Status: Pen, Time: 3:00 PM FUVACUPUNC, Provider: Griselda Hammonds, Status: Pen, Time: 3:00 PM [facility] Work Phone: Start: 01-12-2022 NPV, Provider: Daniel Jimenez, Status: Pen, Time: 11:00 AM NPV, Provider: Daniel Jimenez, Status: Pen, Time: 11:00 AM [facility] DO Work Phone: Start: 12-24-2021 VIRFUVHOME, Provider: Joana Tejeda, Status: Pen, Time: 8:00 AM VIRFUVHOME, Provider: Joana Tejeda, Status: Pen, Time: 8:00 AM [facility] Work Phone: Start: 12-17-2021 VIRFUVHOME, Provider: Zoie Tejeda, Status: Pen, Time: 9:30 AM VIRFUVHOME, Provider: Zoie Tejeda, Status: Pen, Time: 9:30 AM [facility] Work Phone: Start: 12-16-2021 FUVACUPUNC, Provider: Griselda Hammonds, Status: Pen, Time: 10:30 AM FUVACUPUNC, Provider: Griselda Hammonds, Status: Pen, Time: 10:30 AM [facility] Work Phone: Start: 12-15-2021 Patient encounter procedure FUVCOVID, Provider: [facility] [id number], Status: Pen, Time: 11:30 AM [facility] [address] [place] Work Phone: Start: 12-11-2021 NPV, Provider: Daniel Jimenez, Status: Pen, Time: 11:30 AM NPV, Provider: Daniel Jimenez, Status: Pen, Time: 11:30 AM [facility] Work Phone: Start: 12-02-2021 FUVACUPUNC, Provider: Griselda Hammonds, Status: Pen, Time: 10:30 AM FUVACUPUNC, Provider: Griselda Hammonds, Status: Pen, Time: 10:30 AM [facility] Work Phone: Start: 11-25-2021 FUVACUPUNC, Provider: Griselda Hammonds, Status: Pen, Time: 10:00 AM FUVACUPUNC, Provider: Griselda Hammonds, Status: Pen, Time: 10:00 AM [facility] Work Phone: Start: 11-18-2021 FUVACUPUNC, Provider: Griselda Hammonds, Status: Pen, Time: 10:30 AM FUVACUPUNC, Provider: Griselda Hammonds, Status: Pen, Time: 10:30 AM [facility] [address] Work Phone: Start: 11-12-2021 VIRFUVHOME, Provider: Joana Tejeda, Status: Pen, Time: 3:30 PM VIRFUVHOME, Provider: Joana Tejeda, Status: Pen, Time: 3:30 PM [facility] Work Phone: Start: 11-12-2021 FUVACUPUNC, Provider: Yakelin Acosta, Status: Pen, Time: 10:00 AM FUVACUPUNC, Provider: Yakelni Acosta, Status: Pen, Time: 10:00 AM [facility] [address] Work Phone: Start: 11-04-2021 FUVACUPUNC, Provider: Griselda Hammonds, Status: Pen, Time: 1:30 PM FUVACUPUNC, Provider: Griselda Hammonds, Status: Pen, Time: 1:30 PM [facility] [address] Work Phone: Start: 11-04-2021 HOLTER MON, Provider: RAINA ROOT CHIEF BUILDING INSPECTOR 1,[id number], Status: Pen, Time: 10:30 AM HOLTER MON, Provider: RAINA ROOT CHIEF BUILDING INSPECTOR 1,[id number], Status: Pen, Time: 10:30 AM [facility] [address] [place] Work Phone: Start: 10-24-2021 VIRNPVHOME, Provider: Lissa Young, Status: Pen, Time: 2:00 PM VIRNPVHOME, Provider: Lissa Young, Status: Pen, Time: 2:[address] Work Phone: Start: 10-16-2021 VIRNPVHOME, Provider: Joana Tejeda, Status: Pen, Time: 3:00 PM VIRNPVPAPIE, Provider: Joana Tejeda, Status: Pen, Time: 3:00 PM [facility] Work Phone: Start: 10-16-2021 FUVACUPUNC, Provider: Griselda Hammonds, Status: Pen, Time: 11:30 AM FUVACUPUNC, Provider: Griselda Hammonds, Status: Pen, Time: 11:30 AM [facility] [address] Work Phone: Start: 10-14-2021 NPVGENERAL, Provider: Xavier Mai, Status: Pen, Time: 8:30 AM NPVGENERAL, Provider: Xavier Mai, Status: Pen, Time: 8:[address] Work Phone: Start: 04-26-2021 ADVANCE DIRECTIVE DISCUSSION ADVANCE DIRECTIVE DISCUSSION [facility] Start: 02-07-2021 Screening for malignant neoplasm of breast Mammogram [facility] Start: 12-25-2020 Influenza vaccination INFLUENZA (#1) [facility] Start: 11-29-2020 COVID-19 VACCINE (3 - Booster for Pfizer series) COVID-19 VACCINE (3 - Booster for Pfizer series) [facility] Start: 09-13-2020 BONE DENSITY BONE DENSITY [facility] Start: 09-13-2020 PNEUMOCOCCAL: 65+ (1 - PCV) PNEUMOCOCCAL: 65+ (1 - PCV) [facility] Start: 09-13-2020 PNEUMOVAX AGE 65 AND OVER WITH 5YR LOOKBACK (#1) PNEUMOVAX AGE 65 AND OVER WITH 5YR LOOKBACK (#1) [facility] Start: 2015 RSV patients and/or patients aged 60+ years (1 - 1-dose 60+ series) RSV patients and/or patients aged 60+ years (1 - 1-dose 60+ series) [facility] Start: 09-13-2005 SHINGRIX VACCINE (1 of 2) SHINGRIX VACCINE (1 of 2) [facility] Start: 09-13-2005 Zoster Vaccines (1 of 2) Zoster Vaccines (1 of 2) [facility] Start: 09-13-2000 COLOGUARD (FIT-DNA) COLOGUARD (FIT-DNA) [facility] Start: 09-13-2000 Colonoscopy COLONOSCOPY [facility] Start: 09-13-2000 COLORECTAL CANCER SCREENING COLORECTAL CANCER SCREENING [facility] Start: 09-13-[address] COLONOGRAPHY [facility] Start: 09-13-2000 DIABETES SCREEN DIABETES SCREEN [facility] Start: 09-13-2000 FECAL OCCULT BLOOD FECAL OCCULT BLOOD [facility] Start: 09-13-2000 LIPID SCREEN LIPID SCREEN [facility] Start: 09-13-2000 SIGMOIDOSCOPY SIGMOIDOSCOPY [facility] Start: 1995 Mammography MAMMOGRAM [facility] Start: 09-13-1974 Urine microalbumin profile DTAP,TDAP,TD (1 - Tdap) [facility] Start: 09-13-1973 Diabetes mellitus screening Diabetes Screening [facility] Start: 09-13-1973 HEPATITIS C SCREENING HEPATITIS C SCREENING [facility] Start: 09-13-1973 Hepatitis C screening Hepatitis C Screening [facility] Start: 09-13-1973 HIV SCREENING HIV SCREENING [facility] Start: 1967 Adult depression screening assessment DEPRESSION SCREENING [facility] Start: 09-13-1960 COVID-19 VACCINE (1) COVID-19 VACCINE (1) [facility] Start: 1955 Lipid panel Lipid Panel [facility] Start: 1955 Medicare Annual Wellness Visit Medicare Annual Wellness Visit (AWV) [facility] Start: 1955 Screening for malignant neoplasm of colon 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 Work Phone: 03-10-2022 Fluad Quadrivalent 0 .5 ML Intramuscular Prefilled Syringe Inocencio Rosado Work Phone: [facility] 03-10-2022 pneumococcal polysaccharide vaccine, 23 valent Inocenciodedra Rosado Work Phone: [facility] 02-04-2022 Pfizer COVID-19 Vac Bivalent 30 MCG/0.3ML Intramuscular Suspension Inocencio Rosado Work Phone: [facility] Work Phone: 08-08-2021 Comirnaty 30 MCG/0.3 ML Intramuscular Suspension Referring Provider Unknown [address] Work Phone: 08-08-2021 Pfizer-BioNTech COVI D-19 Vacc 30 MCG/0.3ML Intramuscular Suspension Referring Provider Unknown [address] Work Phone: Comment on above: Series: 01-24-2021 Fluad Quadrivalent 0 .5 ML Intramuscular Prefilled Syringe Referring Provider Unknown [facility] 01-24-2021 influenza, seasonal, injectable MD Inocencio Rosado Work Phone: [facility] 01-24-2021 pneumococcal conjuga te vaccine, 13 valent Referring Provider Unknown [facility] 06-29-2020 Pfizer-BioNTech COVI D-19 Vacc 30 MCG/0.3ML Intramuscular Suspension Referring Provider Unknown [facility] 06-08-2020 Pfizer-BioNTech COVI D-19 Vacc 30 MCG/0.3ML Intramuscular Suspension Referring Provider Unknown [facility] 01-24-2020 influenza, injectabl e, quadrivalent, preservative free Referring Provider Unknown [facility] Payers Date Payer Category Payer Self-pay [id number] 2022 Medicare [id number] 2022 Unknown [id number] 2020 Medicare MEDICARE MEDICAR E A AND B [id number] 2020-Present [phone] [address] [address] [place] [address] Medicare [id number]. [id number] 2020 Medicare [id number] 1.13.647.2.7.3. [id number] 2020 Unknown MMO MMO MEDICARE SUPPLEMENT [id number] 2020-Present [phone] [address] [place] [address] Indemnity [id number] [id number].3. [id number] 1955 Unknown [id number] 2.16.840.1.881209.3.579.2.356 1955 Unknown [id number] 2.16.840.1.144033.3.579.2. 1955 Unknown [id number] 2.16.840.1.661335.3.579.2.356 1955 Unknown [id number] 2.16.840.1.412067.3.579.2.1067 1955 Unknown [id number] 2.16.840.1.784216.3.579.2.1067 1955 Unknown [id number] 2.16.840.1.465160.3.579.2.1067 1955 Unknown [id number] 2.16.840.1.285276.3.579.2.1067 1955 Unknown [id number] 2.16.840.1.773148.3.579.2.1067 1955 Unknown [id number] 2.16.840.1.210671.3.579.2.1067 1955 Unknown [id number] 2.16.840.1.477645.3.579.2.1068 1955 Unknown [id number] 2.16.840.1.061097.3.579.2. 1955 Unknown [id number] 2.16.840.1.956628.3.579.2. 1955 Unknown [id number] 2.16.840.1.929047.3.579.2. 1955 Unknown [id number] 2.16.840.1.133869.3.579.2. 1955 Unknown [id number] 2..840.1.649871.3.579.2. 1955 Unknown [id number] 2.840.1.945031.3.579.2. 1955 Unknown [id number] 2.16840.1.224877.3.579.2. 1955 Unknown [id number] 2.16.840.1.477276.3.579.2. 1955 Unknown [id number] 2.16.840.1.448054.3.579.2. 1955 Unknown [id number] 2.16.840.1.858666.3.579.2. 1955 Unknown [id number] 2.16840.1.542063.3.579.2. 1955 Unknown [id number] 2.16.840.1.167665.3.579.2. 1955 Unknown [id number] 2.16.840.1.357830.3.579.2. 1955 Unknown [id number] 2.16.840.1.636158.3.579.2. 1955 Unknown [id number] 2.16.840.1.988997.3.579.2.356 1955 Unknown [id number] 2.16.840.1.176347.3.579.2. 1955 Unknown [id number] 2.16.840.1.154966.3.579.2. 1955 Unknown [id number] 2.16.840.1.281940.3.579.2. 1955 Unknown [id number] 2.16.840.1.725670.3.579.2. 1955 Unknown [id number] 2.840.1.098599.3.579.2. 1955 Unknown [id number] 2.840.1.744297.3.579.2. 1955 Unknown [id number] 2.840.1.370426.3.579.2. 1955 Unknown [id number] 2.840.1.651812.3.579.2. 1955 Unknown [id number] 2.840.1.000637.3.579.2. 1955 Unknown [id number] 2.840.1.753138.3.579.2. 1955 Unknown [id number] 2.840.1.387929.3.579.2. 1955 Unknown [id number] 2.840.1.345688.3.579.2. 1955 Unknown [id number] 2.840.1.110300.3.579.2. 1955 Unknown [id number] 2.840.1.007335.3.579.2. 1955 Unknown [id number] 2.840.1.072422.3.579.2. 1955 Unknown [id number] 2.16.840.1.663296.3.579.2.356 1955 Unknown [id number] 2.16.840.1.616447.3.579.2.356 1955 Unknown [id number] 2.16.840.1.965172.3.579.2.8 1955 Unknown [id number] 2.16.840.1.413673.3.579.2. 1955 Unknown [id number] 2.16.840.1.525139.3.579.2. 1955 Unknown [id number] 2.16.840.1.476375.3.579.2. 1955 Unknown [id number] 2.16.840.1.820685.3.579.2.718 1955 Unknown [id number] 2.16.840.1.533826.3.579.2. 1955 Unknown [id number] 2.16.840.1.982516.3.579.2. 1955 Unknown [id number] 2.16.840.1.258277.3.579.2.8 1955 Unknown [id number] 2.16.840.1.660479.3.579.2.8 1955 Unknown [id number] 2.16.840.1.859171.3.579.2.8 Self-pay 112 Self-pay [id number] Unknown Unknown [id number] 2.16.840.1.396503.3.579.2.531 Social History Date Type [facility]ail [facility] Start: 1955 Sex Assigned At Not on file [facility] Start: 07-08-2021 End: 05-24-2023 Exposure to SARS-CoV-2 (event) Not sure [facility] Start: 08-06-2021 End: 05-24-2023 Tobacco smoking status NHIS Never smoked tobacco [facility] Start: 08-06-2021 End: 05-24-2023 Tobacco use and exposure Smokeless tobacco non-user [facility] Start: 1955 Sex Assigned At Female [facility] Start: 05-24-2023 [facility] 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 Work Phone: Start: 05-24-2023 Alcohol Comment ocassionally [facility] Work Phone: Start: 05-24-2023 Gender identity Not on file [facility] Work Phone: Start: 01-11-2023 Sexual orientation Choose not to dis close 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 - 01/31/2024 10:00 AM EDTDaniel Jimenez, DO - 05/24/2023 3:00 PM ESTPatient InstructionsPatient InstructionsNancy Villalta, - 08/06/2021 9:30 AM EDT Note Date & Type Note Facility 03-07-2024 Note - From: NICOLE PETERS DO To: [facility] Clinical Pool ([facility]); Sent: 03/07/2024 16:29:13 EST Subject: FW: Medication Management Due Date/Time: 03/08/2024 14:56:00 EST Caller Name: FLAQUITA RBOERTSON; Caller Number: H , --------- [facility] [id number] To: NICOLE PETERS DO Sent: March 07, 2024 1:56:59 PM LOG HAULER Subject: Medication Management Due: March 08, 2024 12:10:18 AM LOG HAULER On Hold Pending Signature Drug: eszopiclone (eszopiclone 3 mg oral tablet), TAKE 1 TABLET BY MOUTH EVERY NIGHT AT BEDTIME NEEDED FOR INSOMNIA Quantity: 30 tab(s) Days Supply: 0 Refills: 0 Substitutions Allowed Notes from Pharmacy: Dispensed Drug: eszopiclone (eszopiclone 3 mg oral tablet), TAKE 1 TABLET BY MOUTH EVERY NIGHT AT BEDTIME NEEDED FOR INSOMNIA Quantity: 30 tab(s) Days Supply: 30 Refills: 0 Substitutions Allowed Notes from Pharmacy: --------- From: Radha Ferraro To: [facility] [id number] Sent: 03/07/2024 16:48:11 EST Subject: FW: Medication Management Not Approved: proposed to provider eszopiclone (ESZOPICLONE 3 MG TABLET) TAKE 1 TABLET BY MOUTH EVERY NIGHT AT BEDTIME NEEDED FOR INSOMNIA Qty: 30 tab(s) Days Supply: 30 Refills: 0 Substitutions Allowed Route To Pharmacy - [facility] [id number] Signed by Radha Ferraro [facility] 02-08-2024 Note PROCEDURE: XR Foot C omplete Left COMPARISON: 01/25/2024 HISTORY: LEFT FOOT PAIN FINDINGS: BONES:Stable oblique extra-articular fracture distal diaphysis of the fifth metatarsal with distraction measuring up to 3 mm. No significant interval bone formation or progression of bony bridging . Mild hallux valgus SOFT TISSUES:Negative. No visible soft tissue swelling. EFFUSION:None visible. OTHER: Negative. IMPRESSION: Stable fifth metatarsal fracture with no interval bony bridging Final Dictated by: Patrice Sanders MD Dictated DT/TM: 02/09/24 3:02 Signed (Electronic Signature): Patrice Sanders MD 02/09/24 3:03 pm Technologist: Ian SO [facility] 02-03-2024 Note - From: NICOLE PETERS DO To: [facility] Clinical Pool ([facility]); Sent: 02/03/2024 14:42:29 EDT Subject: FW: Medication Management Due Date/Time: 02/04/2024 13:26:00 EDT Caller Name: FLAQUITA ROBERTSON; Caller Number: Dipesh , Kat --------- From: [facility] [id number] To: NICOLE PETERS DO Sent: February 03, 2024 12:26:07 PM CDT Subject: Medication Management Due: February 04, 2024 12:03:45 AM CDT On Hold Pending Signature Drug: [...] oral tablet), TAKE 1 TABLET BY MOUTH EVERY NIGHT AT BEDTIME NEEDED FOR INSOMNIA Quantity: 30 tab(s) Days Supply: 0 Refills: 0 Substitutions Allowed Notes from Pharmacy: Dispensed Drug: eszopiclone (eszopiclone 3 mg oral tablet), TAKE 1 TABLET BY MOUTH EVERY NIGHT AT BEDTIME NEEDED FOR INSOMNIA Quantity: 30 tab(s) Days Supply: 30 Refills: 0 Substitutions Allowed Notes from Pharmacy: --------- From: Radha Ferraro To: [facility] [id number] Sent: 02/03/2024 16:21:03 EDT Subject: FW: Medication Management Not Approved: proposed to provider LORazepam (LORazepam 0.5 MG TABLET) TAKE 1 TABLET BY MOUTH 2 TIMES A DAY NEEDED FOR ANXIETY Qty: 60 tab(s) Days Supply: 30 Refills: 0 Substitutions Allowed Route To Pharmacy - [facility] [id number] Signed by Radha Ferraro Not Approved: proposed to provider eszopiclone (ESZOPICLONE 3 MG TABLET) TAKE 1 TABLET BY MOUTH EVERY NIGHT AT BEDTIME NEEDED FOR INSOMNIA Qty: 30 tab(s) Days Supply: 30 Refills: 0 Substitutions Allowed Route To Pharmacy - [facility] [id number] Signed by Radha Ferraro [facility] 01-31-2024 History of Present illness Narrative Patient being assessed today for follow-up of migraine. She reports that since increasing the Vyepti to the 300 mg that she is essentially migraine free. Rarely she will have an episode related to the weather changes where she has a migraine that can last for several days. With all the abortive she has tried in the past none of them have been effective. The most effective for her has been a Medrol Dosepak. Will give her 1 of those to have on hand for her in case she needs it. Otherwise with the significant improvement of her migraine activity from more than 15 days/month to essentially 0, we will continue the Vyepti 300 mg every 3 months. She denies any side effects. Discussed role of medicine, importance of taking medications, potential risks, benefits, and precautions to be taken. Reviewed sleep hygiene and dietary modifications. Follow-up in 1 year or sooner if needed. This note was created with voice recognition software and was not corrected for typographical or grammatical errors documented in this encounter [facility] Work Phone: 01-10-2024 Note - From: NICOLE PETERS DO To: [facility] Clinical Pool ([facility]); Sent: 01/07/2024 16:24:13 EDT Subject: FW: Medication Management Due Date/Time: 01/08/2024 10:38:00 EDT Caller Name: FLAQUITA ROBERTSON; Caller Number: Dipesh , Kat --------- [facility] [id number] To: NICOLE PETERS Sent: January 07, 2024 9:38:48 AM CDT [...] Pharmacy: --------- From: Griselda Smith MA To: [facility] [id number] Sent: 01/10/2024 08:17:36 EDT Subject: FW: Medication Management Not Approved: Refill not appropriate, Proposal sent to provider eszopiclone (ESZOPICLONE 3 MG TABLET) TAKE 1 TABLET BY MOUTH AT BEDTIME NEEDED FOR INSOMNIA Qty: 30 tab(s) Days Supply: 30 Refills: 0 Substitutions Allowed Route To Pharmacy - [facility] [id number] Signed by Griselda Smith MA Not Approved: Refill not appropriate, Proposal sent to provider LORazepam (LORazepam 0.5 MG TABLET) TAKE 1 TABLET BY MOUTH 2 TIMES A DAY NEEDED FOR ANXIETY Qty: 60 tab(s) Days Supply: 30 Refills: 0 Substitutions Allowed Route To Pharmacy - [facility] [id number] Signed by Griselda Smith MA [facility] 12-08-2023 Note - From: NICOLE PETERS DO To: [facility] Clinical Pool ([facility]); Sent: 12/07/2023 14:53:55 EDT Subject: FW: Medication Management Due Date/Time: 12/08/2023 14:28:00 EDT Caller Name: FLAQUITA ROBERTSON; Caller Number: Dipesh , --------- From: [facility] [id number] To: NICOLE PETERS DO Sent: December 07, [...] from Pharmacy: --------- From: Radha Ferraro To: [facility] [id number] Sent: 12/08/2023 13:52:25 EDT Subject: FW: Medication Management Not Approved: proposed to provider eszopiclone (ESZOPICLONE 3 MG TABLET) TAKE 1 TABLET BY MOUTH AT BEDTIME NEEDED FOR INSOMNIA Qty: 30 tab(s) Days Supply: 30 Refills: 0 Substitutions Allowed Route To Pharmacy [facility] [id number] Signed by Radha Ferraro Not Approved: proposed to provider LORazepam (LORazepam 0.5 MG TABLET) TAKE 1 TABLET BY MOUTH 2 TIMES A DAY NEEDED FOR ANXIETY Qty: 60 tab(s) Days Supply: 30 Refills: 0 Substitutions Allowed Route To [facility] [id number] Signed by Radha Ferraro [facility] 11-10-2023 Note Patient Education Ma terials Follows:and [...] these instructions at home: Medicines ? Take yvky-tyj-vscywsb and prescription medicines only as told by [...] provider. Document Revised: 11/22/2020 Document Reviewed: 11/22/2020 [employer] Patient Education ? 2022 FTRANS. [facility] 11-08-2023 Note - From: NICOLE PETERS DO To: [facility] Clinical Pool ([facility]); Sent: 11/08/2023 07:40:19 EDT Subject: FW: Medication Management Due Date/Time: 11/08/2023 21:09:00 EDT Caller Name: ROBERTSONFLAQUITACHAR; Caller Number: , --------- From: [facility] [id number] To: NICOLE PETERS DO Sent: November 07, [...] from Pharmacy: --------- From: Radha Ferraro [facility] [id number] Sent: 11/08/2023 08:28:25 EDT Subject: FW: Medication Management Not Approved: proposed to provider eszopiclone (ESZOPICLONE 3 MG TABLET) TAKE 1 TABLET BY MOUTH AT BEDTIME NEEDED FOR INSOMNIA Qty: 30 tab(s) Days Supply: 30 Refills: 0 Substitutions Allowed Route To Pharmacy - [facility] [id number] Signed by Radha Ferraro [facility] 11-03-2023 Note - From: NICOLE PETERS DO To: [facility] Clinical Pool ([facility] Sent: 11/03/2023 07:34:17 EDT Subject: FW: Medication Management Due Date/Time: 11/03/2023 17:13:00 EDT Caller Name: FLAQUITA ROBERTSON; Caller Number: H , --------- From: [facility] [id number] To: NICOLE PETERS DO Sent: November 02, [...] Pharmacy: --------- From: Griselda Smith MA To: [facility] [id number] Sent: 11/03/2023 08:43:22 EDT Subject: FW: Medication Management Not Approved: Refill not appropriate, proposal sent to provider LORazepam (LORazepam 0.5 MG TABLET) TAKE 1 TABLET BY MOUTH 2 TIMES A DAY NEEDED FOR ANXIETY Qty: 60 tab(s) Days Supply: 30 Refills: 0 Substitutions Allowed Route To Pharmacy - [facility] [id number] Signed by Griselda Smith MA [facility] 09-26-2023 Note Entered by IDALIA PETERS DO on September 26, 2023 18:58:33 EDT From: NICOLE PETERS DO To: [facility] [id number] Sent: 09/26/2023 18:58:33 EDT Subject: Medication Management Submitted: Complete:venlafaxine (Effexor XR 150 mg oral capsule, extended release) Signed by NICOLE PETERS DO 09/26/2023 18:58:00 EDT Approved with modifications: venlafaxine (VENLAFAXINE HCL ER 150 MG CAP) TAKE 1 CAPSULE BY MOUTH DAILY Qty: 90 cap(s) Days Supply: 90 Refills: 1 Substitutions Allowed Route To Pharmacy - [facility] [id number] --------- From: [facility] [id number] To: NICOLE PETERS DO Sent: September 24, [...] 0 Substitutions Allowed Notes from Pharmacy: --------- [facility] 08-25-2023 Note Discharge/Transfer N ote Type of [...] (electronically signed on 08/25/2023 at 9:11 AM) [facility] 08-05-2023 Note - From: NICOLE PETERS DO To: [facility] [place] Sent: 08/05/2023 13:18:50 EDT Subject: FW: Medication Management Due Date/Time: 08/06/2023 13:17:00 EDT Caller Name: FLAQUITA ROBERTSON; Caller Number: Dipesh , Kat --------- From: [facility] [id number] To: NICOLE PETERS DO Sent: August 05, [...] from Pharmacy: --------- From: Griselda Smith To: [facility] [id number] Sent: 08/05/2023 15:50:09 EDT Subject: FW: Medication Management Not Approved: Refill not appropriate, proposal sent to provider LORazepam (LORazepam 0.5 MG TABLET) TAKE 1 TABLET BY MOUTH TWICE A DAY NEEDED FOR ANXIETY Qty: 60 tab(s) Days Supply: 30 Refills: 0 Substitutions Allowed Route To Pharmacy - [facility] [id number] Signed by Griselda Smith [facility] 05-24-2023 History of Present illness Narrative Patient: Flaquita Robertson [id number] : 1955 -- AGE 67 y.o. Provider: Daniel Jimenez DO Location [facility] Service Date: 05/24/2023 [facility] Follow Visit Note HISTORY OF PRESENT ILLNESS HISTORY OF PRESENT ILLNESS Flaquita Robertson is a 67 y.o. 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 Preferred sleeping position: SLEEP POSITION: supine [...] conditions (11/05/2021). She is following up at [facility] for an evaluation [...] sooner as needed. documented in this encounter [facility] Work Phone: 05-24-2023 Instructions Daniel Jimenez DO - 05/24/2023 3:00 PM EST Images from the original note were not included. [facility] Sleep [facility] DO [address] [id number] NAME: Flaquita Robertson DATE: 05/24/2023 Your Sleep [...] or as your insurance allows from your [employer] company. Replacement cushions for your PAP mask can be requested monthly if airseals are an issue. - Remember to clean your mask, tubings, and water chamber regularly as instructed. - Avoid driving or operating heavy machinery when drowsy. A person driving while sleepy is five (5) times more likely to have an accident. If you feel sleepy, puller machine and take a short power nap (sleep for less than 30 minutes). Otherwise, ask somebody to drive you. IMPORTANT INFORMATION Call 911 for medical emergencies. Our offices are generally open from Wednesday-Wednesday, 9 am - 5 pm. If you need to get in touch with me, you may either call me and my team(number is below) or you can use SideTour. If a referral for a test, for CPAP, or for another specialist was made, and you have not heard about scheduling this within a week, please call scheduling at [phone]). If you are unable to make your [...] Medicine Clinic Appointments (for Pediatric Sleep Clinic): [phone] - option 1 Appointments (for Adult Sleep Clinic): [phone]) - option 2 Appointments (For Sleep Studies): [phone]) - option 3 Behavioral Sleep Medicine: [phone] Sleep Surgery: [phone] ENT (Otolaryngology): [phone] Headache Clinic (Neurology): [phone] Neurology: [phone] Psychiatry: [phone] Pulmonary Function Testing (PFT) Center: [phone] Pulmonary Medicine: [phone] [employer] (DME): Contatta (DME): [phone] [facility] ([facility]): [phone] OUR ADULT SLEEP MEDICINE TEAM Please do not hesitate to call the office or sleep nurse with any questions between appointments: Adult Sleep Nurses (Lexy Paulino, EDILMA and Dilcia Jones RN): For clinical questions and refilling prescriptions: [phone] Email sleep diaries and other documents at: [email or web address] Adult Sleep Medicine Secretaries: Joy Sage (For Cece/Calderon/Krise/Strohl/Yeh/A dams): P: F: [phone] Arlette Ordonez (For Cisneros/Guggenbiller): P: [phone] Darya Salcedo (For Jurcevic/Blank): P: F: [phone] Chica Hairston (For [place]): P: [phone] F: [phone] Kellee Ray (For Carri/Amy/Zakhary): P: [phone] F: [phone] Yoko Ibanez (For Sean/Pancho): P: [phone] F: [phone] Adult Sleep Medicine Advanced Practice Providers: Jim Arzola ([place], [place]) Shantell Reyes ([facility]) Miguelina Mike CNP ([place], [place], [place]) Gia De La Garza CNP ([place], [place], [place]) Loan Phan ([place], [place], [place]) Twila Deleon CNP ([place], [place]) OUR SLEEP TESTING LOCATIONS Our team will contact you to schedule your sleep study, however, you can contact us as follow: Main Phone Line (scheduling only): [phone]), option 3 Adult and Pediatric Locations [facility] (6 years and older): [facility] - 4th floor ([address] [facility]) After hours line: [phone] [facility] (Main campus: All ages): [facility], 6th floor. After hours line: [phone] [place] (5 years and older; younger considered on kdwy-mi-ptwf basis): [address]; [address], [address]. Scheduling After hours line: [phone] [place] (6 years and older): [address]; [address]; [address] [place] (6 years and older): [address] [facility], [address] After hours line: [phone] [place] (13 years and older) in [place]: [address], 2nd floor After hours line: [phone] [place] (13 year and older): [address] After hours line: [phone] Adult Only Locations: [place] (18 years and older): [address] [facility], 2nd floor [place] (18 years and older): [address] [facility]; 4th floor After hours line: [phone] [facility] (18 years and older) at [place]: [address] [facility] After hours line: [phone] CONTACTING YOUR SLEEP MEDICINE PROVIDER Send a message directly to your provider through My Chart , which is the email service through your Records Account: [email or web address] Call [phone] and leave a message. One of the administrative assistants will forward the message to your sleep medicine provider through My Chart and/or email. Your sleep medicine provider for this visit was: Daniel Jimenez DO documented in this encounter [facility] Work Phone: 05-05-2023 Note HISTORY: [...] Inocencio Joshua MD 05/05/23 3:48 pm Technologist: [facility] 04-27-2023 Note Entered by CIARAN SMITH on April 27, 2023 16:16:29 EST From: LILIBETH SMITH To: [facility] [id number] Sent: 04/27/2023 16:16:29 EST Subject: Medication Management Not Approved: duplicate LORazepam (LORazepam 0.5 MG TABLET) TAKE 1 TABLET BY MOUTH TWICE A DAY NEEDED FOR ANXIETY Qty: 40 tab(s) Days Supply: 20 Refills: 0 Substitutions Allowed Route To Pharmacy - [facility] [id number] Signed by LILIBETH SMITH --------- From: [facility] [id number] To: Ashlee COOL, Inocencio Gilmore MD Sent: April 27, 2023 3:06:40 PM LOG HAULER Subject: Medication Management Due: April 28, 2023 12:07:25 AM LOG HAULER On Hold Pending Signature Drug: LORazepam (LORazepam [...] 0 Substitutions Allowed Notes from Pharmacy: --------- [facility] 08-03-2022 History of Present illness Narrative cc: [...] been seen by a headache specialist at [facility], who diagnosed her with occipital neuralgia; she stated that she did 5 weeks of PT, and then plateaued ; the PT also attempted dry needling , which she found ineffective; she stated that she will be getting a second opinion with neurology next week; patient also visited a chiropractor in [place] who is a cervical specialist ; she was told that her neck was off by 3 degrees but after her adjustment she is now aligned Patient also complains of ongoing sleep issues, coughing diagnosed as reflux, mood swings, and fatigueand noted that she is getting a second opinion with neurology next week [facility]uneet [facility] [facility] Work Phone: 05-29-2022 History of Present illness Narrative [...] in February 2021. Is under care with [facility] recovery clinic. Had extensive imaging and testing [...] no difference to her headache as well PETRONAKwesi Review Trackers [facility] Work Phone: 05-04-2022 Note Therapy Diagnosis Assessed [...] code time is 40 minutes. Therapeutic exercise (69287): timed minutes 30, units 2 . UBE [...] added Lemperts maneuver to HEP. Manual Therapy (71805): timed minutes 10, units 1 . [facility] to rigjht Scalenes, [place]ator, [place] suboccipital releases with gentle traction includes vestibular testing . 'Scores and Scales' Signatures Electronically signed by : Manish Kramer PT; May 04 2022 12:25PM EST (Author) Joanie 03-02-2022 Chief complaint Narrative - Reported An [...] name, , and address.CC: it's going well [place] [address] [place] Work Phone: 11-12-2021 History of Present [...] some weight. She is meeting with a agency trainer once a week and this week [...] end of the day. She appreciates this travel writer increasing the dose for the effexor. She feels it helped, but the past 2-3 days she still doesn't feel like herself where she doesn't feel asah or excitement, just blah/numb. She feels overall [...] close to her mother is working multimedia instructional designer, which leaves the patient to care for [...] first appointment with a therapist out of [facility] who specializes in CBT this Wednesday. Patient [...] and is currently wearing a heart monitor. [address] Work Phone: 10-24-2021 Chief complaint Narrative [...] visit.66 y/o female presents for initial consultation. [facility] Work Phone: 08-06-2021 Note HNO ID: [id number] Author: Nancy Villalta, DO Service: ? 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 [facility] 08-06-2021 Instructions Nancy Villalta, - 08/06/2021 10:26 [...] buy supplements cheaper (especially Coenzyme Q10) at www.Eye-Q or at Power2Switch. General Headache Instructions: 1) Maintain a headache diary; learn to identify and avoid triggers. 2) Limit use of acute treatments (tkiy-ihz-hkmwhcr medications, triptans, etc.) to no more than [...] Zeynep Beth, Mug/A+W Root Beer, Minute Maid [place], Slice are okay)) -Foods containing nitrates (deli meat, ham, corrales, sausage, hot dogs) -Tyramine (aged cheese; can only have South African cheese, cottage cheese, Velveeta and fresh mozarella (most pizza uses aged mozarella)) -MSG (Sammarinese/ foods, Doritos, all flavored chips and Ramen [...] Feverfew: Feverfew is a common garden herb [place] to [place] and popular in [facility] as a treatment for disorders typically controlled [...] The main way of communication is by Oscarhart rather than phone lines, so if you [...] offering to allow you to have a yukn-fj-ywfd conversation with your doctor for 15 minutes [...] patients, providers, and family members through a SkGiftikie -like connection for live audio and video [...] WEBCAM CONNECTED: 1. Go to the URL: [email or web address] 2. Click on Sign Up and Create a patient account for yourself. 3. Please also follow the links to Test My Computer . 4. Follow the steps suggested, testing your Internet Speed, Webcam, Microphone, Speaker, and your video software. 5. Please make sure your video software is up-to-date. This is a safe, [facility] approved download, and will not harm your computer. ON AN IPHONE, IPAD, OR ANDROID DEVICE: 1. Open up the Keshia Store or Google Deutsche Startupstore and search [facility] KabeExploration Online. 2. Download and Install the Application. 3. Tap on Sign Up and create a patient account for yourself. 4. Please use an e-mail address that you frequently check, as you will receive an e-mail appointment from [facility] KabeExploration Online. Find our user guide, here: [email or web address] Important: Don t forget your password you [...] be connected to the provider. Please call [phone] prior to your visit if you have any questions regarding technology! documented in this encounter [facility] 08-06-2021 History of Present illness Narrative Images from the original note were not included. 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 Coordination: Finger-to- nose-finger intact bilaterally and Baif-xj-wijh intact bilaterally. Gait: normal-based. IMPRESSION: Flaquita Robertson [...] August 25, 2021 documented in this encounter [facility] 08-03-2021 History of Present illness Narrative [...] been seen by a headache specialist at [facility], who diagnosed her with occipital neuralgia; she stated that she did 5 weeks of PT, and then plateaued ; the PT also attempted dry needling , which she found ineffective; she stated that she will be getting a second opinion with neurology next week; patient also visited a chiropractor in [place] who is a cervical specialist ; she was told that her neck was off by 3 degrees but after her adjustment she is now aligned Patient also complains of ongoing sleep issues, coughing diagnosed as reflux, mood swings, and fatigueand noted that she is getting a second opinion with neurology next week [employer] Phone: 08-03-2021 History of Present illness Narrative [...] been seen by a headache specialist at [facility], who diagnosed her with occipital neuralgia; she stated that she did 5 weeks of PT, and then plateaued ; the PT also attempted dry needling , which she found ineffective; she stated that she will be getting a second opinion with neurology next week; patient also visited a chiropractor in [place] who is a cervical specialist ; she was told that her neck was off by 3 degrees but after her adjustment she is now aligned Patient also complains of ongoing sleep issues, coughing diagnosed as reflux, mood swings, and fatigueand noted that she is getting a second opinion with neurology next week Puneet D[employer]Drop Phone: 08-03-2021 History of Present illness Narrative [...] been seen by a headache specialist at [facility], who diagnosed her with occipital neuralgia; she stated that she did 5 weeks of PT, and then plateaued ; the PT also attempted dry needling , which she found ineffective; she stated that she will be getting a second opinion with neurology next week; patient also visited a chiropractor in [place] who is a cervical specialist ; she was told that her neck was off by 3 degrees but after her adjustment she is now aligned Patient also complains of ongoing sleep issues, coughing diagnosed as reflux, mood swings, and fatigueand noted that she is getting a second opinion with neurology next week [facility]ON[facility] Biotech [facility]elliGeneScan Phone: 07-25-2021 History of Present illness Narrative Patient being assessed today for initial evaluation and second opinion regarding migraine headaches. Patient's was being followed by [facility] neurology and was last seen in July [...] behind her right eye or the right hindu area and describes it as an aching [...] normal limits. Patient also is established with [facility] and receives acupuncture and has a [...] not corrected for typographical or grammatical errors [place] [address] Work Phone: 07-24-2021 Miscellaneous Notes Received reports from CT myelogram of complete spine. Uploaded to chart in Scanned Docs. documented in this encounter [facility] 07-15-2021 Miscellaneous Notes Images from the original note were not included. OSH NI referral from Dr. Wilmer Carrillo, [facility], [place], [place] DX: intractable headache,migraines, borderline intracranial hypotension RFV: Evaluate and treat Scheduling instructions: Patient can see first available Headache specialist Patient to have CT myelogram spine at [facility] with Dr. Quintero. Outside records will be uploaded to chart in Scanned Docs. documented in this encounter [facility] 06-05-2021 History of Present illness Narrative [...] been seen by a headache specialist at [facility], who diagnosed her with occipital neuralgia; she stated that she did 5 weeks of PT, and then plateaued ; the PT also attempted dry needling , which she found ineffective; she stated that she will be getting a second opinion with neurology next week; patient also visited a chiropractor in [place] who is a cervical specialist ; she was told that her neck was off by 3 degrees but after her adjustment she is now aligned Patient also complains of ongoing sleep issues, coughing diagnosed as reflux, mood swings, and fatigueand noted that she is getting a second opinion with neurology next week DONNIE-Kwesi PlateJoy-GreenLight Phone: 02-24-2021 History of Present illness Narrative Covid-19 infection date: 02/24/2021 (sx: cough, fatigue, headache - no hospitalization, treated with monoclonal antibody infusion in [place])Covid-19 vaccine status: Pfizer 06/07/20, 06/29/20, 08/08/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 Inocencio Rosado, local Neurologist Dr. Wilmer Carrillo, Francisca Taylor, GARDEN EQUIPMENT MECHANIC, [facility] scores:PHQ-9: 21GAD-7: 9Sleep Wellness: 9 snoresFSS average: 5.778Modified ECog average: 2.333MOCA: [age]yo female with h/o COVID-19 in February 2021, [...] helpingFUV is in October with Neurology at [facility] 20[facility], then were [...] would like to restart exercises with a retail personal banker who specializes in helping patients with PULMONARY DISEASE SPECIALIST dysfunctionHas to lay on her left, cannot [...] for headache and panic attack-07/2021 Neurology at [facility] for headaches suspects cervical paraspinal mm [...] 2001, squamous cell carcinoma 2020 [facility] [address] [place] Work Phone: 02-24-2021 History of Present illness Narrative Covid-19 infection date: 02/24/2021 (sx: cough, fatigue, headache - no hospitalization, treated with monoclonal antibody infusion in [place])Covid-19 vaccine status: Pfizer 06/07/20, 06/29/20, 08/08/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 Inocencio Rosado, local Neurologist Dr. Wilmer Carrillo, Francisca Taylor, GARDEN EQUIPMENT MECHANIC, [facility] scores:PHQ-9: 21GAD-7: 9Sleep Wellness: 9 snoresFSS average: [...] helpingFUV is in October with Neurology at [facility] but would like a second opinion [...] would like to restart exercises with a retail personal banker who specializes in helping patients with PULMONARY DISEASE SPECIALIST dysfunctionHas to lay on her left, cannot [...] for headache and panic attack-07/2021 Neurology at [facility] for headaches suspects cervical paraspinal mm [...] Hx: hysterectomy 2001, squamous cell carcinoma 2020 [facility] Work Phone: 02-24-2021 History of Present illness Narrative Covid-19 infection date: 02/24/2021 (sx: cough, fatigue, headache - no hospitalization, treated with monoclonal antibody infusion in [place])Covid-19 vaccine status: GlobalLogic 06/07/20, 06/29/20, 08/08/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 Inocencio Rosado, local Neurologist Dr. Wilmer Carrillo, Francisca Taylor, GARDEN EQUIPMENT MECHANIC, [facility] scores:PHQ-9: 21GAD-7: 9Sleep Wellness: 9 snoresFSS average: [...] helpingFUV is in October with Neurology at [facility] but would like a second opinion [...] would like to restart exercises with a retail personal banker who specializes in helping patients with PULMONARY DISEASE SPECIALIST dysfunctionHas to lay on her left, cannot [...] for headache and panic attack-07/2021 Neurology at [facility] for headaches suspects cervical paraspinal mm [...] Hx: hysterectomy 2001, squamous cell carcinoma 2020 [facility] Work Phone: 02-24-2021 History of Present illness Narrative 66 y/o female with PMH anxiety, depression, migraines, insomnia, PASC presents for initial consultation. Referred by covid Erlin sanabria. 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 Lives with . [...] be very active- 2-3x per week, HIIT, edz, jazzercise, yoga.Stress Management: Mom had a nervous break down when she was 16 y/o, and she had to take care of her younger sisters. of first . when young, two children by age 23, [place]-- felt depression begin. 2009- Dad had end-of-life health issues, and she was able to help him out. Granddaughter in [place] with Down syndrome and heart issues- had open heart surgery. 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 Inocencio Rosado, local Neurologist Dr. Wilmer Carrillo, Francisca Taylor, GARDEN EQUIPMENT MECHANIC, [facility] scores:PHQ-9: 21GAD-7: 9Sleep Wellness: 9 snoresFSS average: [...] helpingFUV is in October with Neurology at [facility] but [facility] a [facility]/early 20s, then were [...] would like to restart exercises with a retail personal banker who specializes in helping patients with PULMONARY DISEASE SPECIALIST dysfunctionHas to lay on her left, cannot [...] for headache and panic attack-07/2021 Neurology at [facility] for headaches suspects cervical paraspinal mm [...] Hx: hysterectomy 2001, squamous cell carcinoma 2020 [facility] Work Phone: Chief complaint Narrative - Reported HeadacheNeurologic Evaluation.An interactive audio and video telecommunication system which permits real time communications between the patient (at the originating site) and provider (at the distant site) was utilized to provide this telehealth service.Verbal consent was requested and obtained from FLAQUITA ROBERTSON on this date, 10/15/2021 10:30 AM , for a telehealth visit. LF-Vpfntvbsl-Vgyqalhz [address] Work Phone: Chief complaint Narrative - Reported 1 vpcyThe patient was cleared by a COVID-19 screening questionnaire and temperature scan, which showed temperature at or below 99.5F [facility] Work Phone: Chief complaint Narrative - Reported MigraineNeurologic Evaluation.An interactive audio and video telecommunication system which permits real time communications between the patient (at the originating site) and provider (at the distant site) was utilized to provide this telehealth service.Verbal consent was requested and obtained from FLAQUITA ROBERTSON on this date, 06/03/2022 09:30 AM , for a telehealth visit. NE-Adetprfte-Bmvxyqfy [address] Work Phone: Chief complaint Narrative - Reported 2 vpcyThe patient was cleared by a COVID-19 screening questionnaire and temperature scan, which showed temperature at or below 99.5F [facility] Work Phone: Chief complaint Narrative - Reported Visit 3 MedicareThe patient was cleared by a COVID-19 screening questionnaire upon entry to the suite.Please note: Voice to text software was used when completing this note. While the note was proofread, portions may include grammatical errors. Please contact me with any questions/concerns as it relates to these types of errors. [employer] Work Phone: Evaluation note Diagnosis Occipital neuralgia of right side- Primary Cervical paraspinal muscle spasm Spasm of muscle Migraine without aura and without status migrainosus, not intractable Migraine without aura, without mention of intractable migraine without mention of status migrainosus [facility] Diagnosis Migraine without aura and without status migrainosus, not intractable- Primary Migraine without aura, without mention of intractable migraine without mention of status migrainosus Cervical paraspinal muscle spasm Spasm of muscle Occipital neuralgia of right side documented in this encounter [facility] noteNo assessment information availableSelect [facility] Work Phone: Evaluation note* Diagnosis MYRIAM (obstructive sleep apnea)- Primary Obstructive sleep apnea (adult) (pediatric) documented in this encounter [facility] Work Phone: Evaluation note* Diagnosis Migraine without aura and without status migrainosus, not intractable- Primary documented in this encounter [facility] Work Phone: History of Present [...] been seen by a headache specialist at [facility], who diagnosed her with occipital neuralgia; she stated that she did 5 weeks of PT, and then plateaued ; the PT also attempted dry needling , whichshe found ineffective; she stated that she will be getting a second opinion with neurology next w [place]; patient also visited a chiropractor in [place] who is a cervical specialist ; she was told that her neck was off by 3 degrees but after her adjustment she is now aligned * Patient also complains of ongoing sleep issues, coughing diagnosed as reflux, mood swings, and fatigue * and noted that she is getting a second opinion with neurology next week [facility] Work Phone: History of Present illness [...] 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 * Naps:. 2x per week, around [...] act out of dream. No nightmares. -Pulmonary Medicine-[address] Work Phone: History of Present illness [...] of motion/joint mobility, sensory and strength. [facility] Work Phone: History of Present illness Narrative* [...] been seen by a headache specialist at [facility], who diagnosed her with occipital neuralgia; she stated that she did 5 weeks of PT, and then plateaued ; the PT also attempted dry needling , whichshe found ineffective; she stated that she will be getting a second opinion with neurology next w [place]; patient also visited a chiropractor in [place] who is a cervical specialist ; she was told that her neck was off by 3 degrees but after her adjustment she is now aligned * Patient also complains of ongoing sleep issues, coughing diagnosed as reflux, mood swings, and fatigue * and noted that she is getting a second opinion with neurology next week [facility] Work Phone: History of Present illness Narrative* [...] tomorrow on vacation for 1 week in [place] * Initial intake (10/08/2021) * Pt came [...] been seen by a headache specialist at [facility], who diagnosed her with occipital neuralgia; she stated that she did 5 weeks of PT, and then plateaued ; the PT also attempted dry needling , whichshe found ineffective; she stated that she will be getting a second opinion with neurology next w [place]; patient also visited a chiropractor in [place] who is a cervical specialist ; she was told that her neck was off by 3 degrees but after her adjustment she is now aligned * Patient also complains of ongoing sleep issues, coughing diagnosed as reflux, mood swings, and fatigue * and noted that she is getting a second opinion with neurology next week [employer] Work Phone: History of Present illness Narrative* [...] and improved knowledge and understanding of condition. [facility] Work Phone: history of Present illness [...] and improved knowledge and understanding of condition. [facility] Work Phone: history of Present illness Narrative* [...] to complete today's treatment with some difficulty. [facility] Work Phone: history of Present illness Narrative* [...] to complete today's treatment with some difficulty. [facility] Work Phone: history of Present illness Narrative* No dizziness with any change of position today. * Patient has met most goals and is independent with their home program progression. * They are being discharged to their HEP. * Response to treatment: decreased pain, improved joint mobility/ROM, improved posture and improved knowledge and understanding of condition. * Patient was able to complete today's treatment with some difficulty. 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 * Naps:. 2x per week, around [...] decreased nocturnal awakenings and decreasedsnoring/ choking/ gasping. [facility] Work Phone: History of Present illness [...] issues patient had to pay over $800 [id number] for a 1 month prescription of the [...] was not corrected for typographical orgrammatical errors AV-Pneiqshjc-Sewap[facility]ni [address] Work Phone: History of Present illness Narrative* 66 y/o female with PMH anxiety, depression, migraines, insomnia, PASC presents for initial consultation. [facility]. 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 Lives with . [...] major impact on fatigue * - Sees retail personal banker- started pilates, TRX- twice weekly * - [...] able to help him out. Granddaughter in [place] with Down syndrome and heart issues- had open heart surgery. 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 Sees psychiatrist and [...] * Drinks-6-8 glasses of water; 1-2 coffees -[employer] Phone: History of Present illness Narrative* 66 y/o female with PMH anxiety, depression, migraines, insomnia, PASC presents for follow up. Referred by [facility] Erlin sanabria. 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 Lives with . [...] major impact on fatigue * - Sees retail personal banker- started pilates, TRX- twice weekly * - Recognizes HR elevates quickly with exertion, so needs to modify exercise routine * - Has Feel Better in Five book, although has not yet read it * - Rarely uses ativan * - Taking [facility] multivitamin with 500 mg Turmeric, and 1200 [...] able to help him out. Granddaughter in [place] with Down syndrome and heart issues- had open heart surgery. 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 Sees psychiatrist and [...] * Drinks-6-8 glasses of water; 1-2 coffees>>> [facility] Phone: History of Present illness Narrative* Pre-Treatment Pain Level: 4/10. * Patient reports that she felt better [...] in February 2021. Is under care with [facility] clinic. Had extensive imaging and testing [...] no difference to her headache as well [email or web address] Phone: History of Present illness Narrative* Pre-Procedure [...] contraindications based on patient's history -[facility] [place] [address] Work Phone: History of Present [...] back pain. She does workout with a agency trainer twice a week and tries to [...] no difference to her headache as well [facility] Phone: History of Present illness Narrative* Pre-Procedure [...] history? No contraindications based on patient's history [facility] [address] Work Phone: History of Present [...] history? No contraindications based on patient's history [facility] [address] Work Phone: Reason for visit Narrative* Initial Evaluation . Patient is a 66 y/o female, who presented to the clinic today for a Physical therapy evaluation, with complaints of dizziness, nausea, and headaches, that began in February of last year, after being diagnosed with COVID. * Referred by: Flower Nguyễn CNP [facility] Work Phone: Reason for Referral Specialty Diagnoses / Procedures Referred By Manpreet deluca Referred To Contact [facility] Diagnoses Occipital neuralgia of right side Cervical paraspinal muscle spasm Procedures CONSULT TO PHYSICAL THERAPY PHYSICAL THERAPY EVALUATION HIGH COMPLEX 45 MINS Neur Headache [address] [place] [address] [facility] [place] [address] [place] [address] Referral ID Status Reason Start Date Expiration Date Visits Requested Visits Authorized [id number] Pending Review PCP Requested Referral Auto-Generate d [...] speech when experiencing pain, extreme cognitive issues,cc: loirpcha48/01/21 brain fog, headache different in severity, swelling [...] or prosecute any alcohol or drug abuse patient.[facility] the event this information is protected by the Federal Confidentiality of Alcohol and Drug Abuse Patient Records regulations: The Federal rules restrict any use of the information to criminally investigate or prosecute any alcohol or drug abuse patient.[facility] HospitalIn the event this information is protected by the Federal Confidentiality of Alcohol and Drug Abuse Patient Records regulations: The Federal rules restrict any use of the information to criminally investigate or prosecute any alcohol or drug abuse patient.[facility] HospitalIn the event this information is protected by the Federal Confidentiality of Alcohol and Drug Abuse Patient Records regulations: The Federal rules restrict any use of the information to criminally investigate or prosecute any alcohol or drug abuse patient.[facility] Reason for Visit (unrecogniz ed section and content) Reason Comments Received Outside Medical Records OSH NI referral to Headache & Facial Pain Reason Comments Received Outside Medical Records Imaging reports Reason Comments New Patient Reason Comments Follow-up Everything is good w ith cpap machine supplies are good will order supplies soon Care Teams (unrecognized sec tion and content) Document Control Specialist Relationship Specialty Start Date End Date Benito Diaz [address] [place] [address] PCP - General 08/04/[address] [place] [address] NI Referring Team Neurology 07/15/21 Document Control Specialist Relationship Specialty Start Date End Date GaganadrienBenito theodore [address] [place] [address] PCP - General 08/04/[address] Carrillo [address] [place], [place] [id number] NI Referring Team Neurology 07/15/21 Document Control Specialist Relationship Specialty Start Date End Date GaganherberBenito [address] [place] [address] PCP - General 08/04/00 [address] Carrillo [address] [place], [place] [id number] NI Referring Team Neurology 07/15/21 Document Control Specialist Relationship Specialty Start Date End Date GaganadrienBenito theodore [address] [place] [address] PCP - General 08/04/00 Wilmer Carrillo [address] [place] [address] NI Referring Team Neurology 07/15/21 Team Status: Active Member Role Status Dates Inocencio Rosado MD Primary Care Provider Active Team Status: Inactive Member Role Status Dates Inocencio Rosado MD Primary Care Provider Active Ashu Goff OD Attending Provider Active Document Control Specialist Relationship Specialty Start Date End Date Inocencio Rosado MD [address] [place] [address] PCP - General 04/26/99 INFORMATION SOURCE (unrecogn ized section and content) DATE CREATED AUTHOR 08/27/2021 [facility] DATE CREATED AUTHOR AUTHOR'S ORGANIZ ATION 04/15/[address]22 [facility] DATE CREATED AUTHOR AUTHOR'S ORGANIZ ATION 05/06/2022 [facility] DATE CREATED AUTHOR AUTHOR'S ORGANIZ ATION 10/28/2022 [facility] DATE CREATED AUTHOR AUTHOR'S ORGANIZ ATION 11/13/2022 [employer] DATE CREATED AUTHOR AUTHOR'S ORGANIZ ATION 04/07/2023 [facility] DATE CREATED AUTHOR AUTHOR'S ORGANIZ ATION 08/26/2023 [facility] DATE CREATED AUTHOR AUTHOR'S ORGANIZ ATION 03/09/2024 [facility] l Goals (unrecognized section and content) Goals [...] BE BASED ON THE PRIMARY CLINICAL RECORDS. [employer] provides no warranty or guarantee of the accuracy or completeness of information in this document.
== END 2024-03-29 09:53 | disposition home or self-care (01) ==
LOC: RAD 09:52
PROVIDERS: PCP Family Medicine; Visit Provider Podiatrist Foot & Ankle Surgery
DX: M79.672 Pain in left foot (principal); S92.355D Nondisplaced fracture of fifth metatarsal bone, left foot, subsequent encounter for fracture with routine healing
CPT/HCPCS: 73630

== ENCOUNTER 2024-05-09 12:09 | Outpatient (OUT) | payer MEDICARE, OTHER, SELFPAY ==
--- NOTE | 2024-05-09 12:11 | XR_ITS ---
The [address] [address] Patient Name: VIKTORIA HIDALGO MRN: [id number] date: 1955 Sex: F Assigned Patient Location: [facility] Current Patient Location: Accession/Order Number: [id number] Exam Date: 05/09/2024 12:19 Report Date: 05/10/2024 05:06 At the request of: JEEVAN RASCON Procedure: XR foot LT min 3V PROCEDURE: XR foot LT min 3V HISTORY: Left Foot Pain ; follow-up 5th metatarsal fracture COMPARISON: XR foot left 03/29/2024 FINDINGS: BONES:Oblique fracture through distal 5th metatarsal with slight offset. Continuing increase in density of the fracture line compatible with ongoing bone healing. SOFT TISSUES:No visible soft tissue swelling. EFFUSION:None visible. OTHER: Negative. XR/XR foot LT min 3V IMPRESSION: 1. Stable alignment of the mildly displaced 5th metatarsal fracture with ongoing bone healing. Electronically authenticated by: SURI TUTTLE Date: 05/10/2024 05:06
--- OUTSIDE RECORDS SUMMARY | 2024-05-09 12:13 | XMS_ITS | CCD ---
Author Organization [facility] Care Team Providers Care Credit Card Clerk Name Role Phone Svetlanadiogenesherber Benito S Primary [...] Referring Unavailable Ashlee, Dr. Inocencio Hairston Primary [facility] Unava ilable Torer, Ms. Crenshaw Attending Unavailable Toreliseo, Ms. Crenshaw Referring Unavailable Ashlee, Dr. Inocencio Hairston [facility] Unava ilable Torer, Ms. Crenshaw Referring Unavailable Torer, MsMaximiliano Crenshaw Attending Unavailable Ashlee, Dr. Inocencio Hairston Primary Care Unava ilable Torer, MsMaximiliano Crenshaw Referring Unavailable Torer, MsMaximiliano Crenshaw Attending Unavailable Ashlee, Dr. Inocencio Hairston [facility] Care Unava ilable Torer, Ms. Crenshaw Attending Unavailable Ashlee, Dr. Inocencio Hairston Primary [facility] Unava ilable Torer, MsMaximiliano Crenshaw Referring Unavailable Torer, MsMaximiliano Crenshaw Attending Unavailable Torer, MsMaximiliano Crenshaw Referring Unavailable Ashlee, Dr. Inocencio Hairston [facility] Unava ilable Torer, Ms. Crenshaw Attending Unavailable Torer, Ms. Crenshaw Referring Unavailable Cadigan, Dr. Inocencio Hairston [facility] Unava ilable Unavailable Unavailable Calderon, Dr. Aundrea Guadalupe Attending Vanessa vailable Calderon, Dr. Aundrea Guadalupe Referring Vanessa vailable Cadigan, Dr. Inocencio Hairston [facility] Unava ilable TORELISEO, TAMMI CAMPA Attending Unavailable TORELISEO, TAMMI CAMPA Referring Unavailable Cadigan, Dr. Inocencio Hairston [facility] Unava ilable Zoie Tejeda Attending Unavailable Zoie Tejeda Referring Unavailable Cadigan, Dr. Inocencio Hairston [facility] Unava ilable Cassius, Ms. Griselda Attending Unavailable [place], Ms. Griselda Referring Unavailable Cadigan, Dr. Inocencio Hairston [facility] Unava ilable Yakelin Acosta Attending Unavailable Cassius, Ms. Griselda Referring Unavailable Cadigan, Dr. Inocencio Hairston [facility] Monique Unava ilable Cassius, Ms. Griselda Attending Unavailable [place], Ms. Griselda Referring Unavailable Cadigan, Dr. Inocencio Hairston [facility] Unava ilable Cassius, Ms. Griselda Attending Unavailable [place], Ms. Griselda Referring Unavailable Cadigan, Dr. Inocencio Hairston [facility] Unava ilable [place], Ms. Griselda Attending Unavailable [place], Ms. Griselda Referring Unavailable Cadigan, Dr. Inocencio Hairston [facility] Unava ilable Zoie Tejeda Attending Unavailable Zoie Tejeda Referring Unavailable Cadigan, Dr. Inocencio Hairston [facility] Unava ilable Karie, Ms. Cosme Jaeger Attending Unava ilable Zoie Tejeda Referring Unavailable Cadigan, Dr. Inocencio Hairston [facility] Unava ilable Karie, Ms. Cosme Jaeger Attending Unava ilable Zoie Tejeda Referring Unavailable Cadigan, Dr. Inocencio Hairston [facility] Unava ilable Cassius, Ms. Griselda Attending Unavailable Cassius, Ms. Griselda Referring Unavailable Cadigan, Dr. Inocencio Hairston [facility] Unava ilable Eve Mccollum Attending Unavailable ProsEve wilkins Referring Unavailable Cadigan, Dr. Inocencio Hairston [facility] Unava ilable Cassius, Ms. Griselda Attending Unavailable Cassius, Ms. Griselda Referring Unavailable Cadigan, Dr. Inocencio Hairston [facility] Unava ilable Cassius, Ms. Griselda Attending Unavailable [place], Ms. Griselda Referring Unavailable Cadigan, Dr. Inocencio Hairston [facility] Unava ilable [place], Ms. Griselda Attending Unavailable Cassius, Ms. Griselda Referring Unavailable Cadigan, Dr. Inocencio Hairston [facility] Unava ilable Daniel Jimenez Attending Unavailable Cadigan, Dr. Inocencio Hairston Referring Unava ilable Cadigan, Dr. Inocencio Hairston [facility] Unava ilable Daniel Jimenez Attending Unavailable TORER, TAMMI SESAYIANA Referring Unavailable Cadigan, Dr. Inocencio Hairston [facility] Unava ilable Cassius, Ms. Griselda Attending Unavailable [place], Ms. Griselda Referring Unavailable Cadigan, Dr. Inocencio Hairston [facility] Unava ilable Prosak, Eve Attending Unavailable Prosak, Eve Referring Unavailable Cadigan, Dr. Inocencio Hairston [facility] Unava ilable Cassius, Ms. Griselda Attending Unavailable [place], Ms. Griselda Referring Unavailable Cadigan, Dr. Inocencio Hairston [facility] Unava ilable Prosak, Eve Attending Unavailable Prosak, Eve Referring Unavailable Cadigan, Dr. Inocencio Hairston [facility] Unava ilable Prosak, Eve Attending Unavailable Prosak, Eve Referring Unavailable Cadigan, Dr. Inocencio Hairston [facility] Unava ilable BRADESCA, PAC LISSA ELIANA Attending Unavai lable BRADESCA, PAC LISSA ELIANA Referring Unavai lable Cadigan, Dr. Inocencio Hairston [facility] Unava ilable Devon, Dr. Xavier Bianchi Attending Unavail able Trager, Dr. Xavier Bianchi Referring Unavail able Cadigan, Dr. Inocencio Hairston [facility] Unava ilable Trager, Dr. Xavier Bianchi Attending Unavail able Trager, Dr. Xaiver Bianchi Referring Unavail able Cadigan, Dr. Inocencio Hairston [facility] Unava ilable BRADESCA, PAC LISSA ELIANA Attending Unavai lable BRADESCA, PAC LISSA ELIANA Referring Unavai lable Cadigan, Dr. Inocencio Hairston [facility] Unava ilable Cassius, Ms. Griselda Attending Unavailable [place], Ms. Griselda Referring Unavailable Cadigan, Dr. Inocencio Hairston [facility] Unava ilable [place], Ms. Griselda Attending Unavailable Cassius, Ms. Griselda Referring Unavailable Cadigan, Dr. Inocencio Hairston Primary Care Unava ilable Cassius, . Griselda Attending Unavailable [place], Ms. Griselda Referring Unavailable Cadchristiano, Dr. Inocencio Hairston Primary Care Unava ilable Cassius, MsMaximiliano Mathewsn Attending Unavailable [place], Ms. Griselda Referring Unavailable Cadigan, Dr. Inocencio Hairston Primary Care Unava ilable Cassius, MsMaximiliano Villalobos Attending Unavailable [place], Ms. Griselda Referring Unavailable Ashlee, Dr. Inocencio Hairston Primary Care MD Inocencio Austin Primary Care Provider [phone] ORLANDO Goff Attending Provider [phone] Ashu Goff Attending Unavailab Ashu Willis Admitting Unavailab Inocencio Fisher Primary Care Unavailable Inocencio Rosado MD Primary Care Provider HOUSE, NICOLE P Primary Care Unavailable HOUSE, NICOLE P Primary Care Unavailable HOUSE, NICOLE P Primary Care Unavailable [place], DO NICOLE P Attending Unavailable [place], NICOLE P Primary Care Unavailable [place], DO NICOLE P Attending Unavailable [place], NICOLE P Primary Care Unavailable Wyckoff, Francesco P Attending Unavailable Wyckoff, Francesco P Primary Care Unavailable Jean-Claude, Francesco P Admitting Unavailable Jean-Claude, Francesco P Attending Unavailable Wyckoff, Francesco P Primary Care Unavailable Wyck[place], Francesco P Admitting Unavailable Wyckoff, Francesco P Attending Unavailable Wyckoff, Francesco P Primary Care Unavailable [place], Patricio L Attending Unavailable [place], Patricio L Admitting Unavailable HOUSE, NICOLE P Primary Care Unavailable HOUSE, DO NICOLE P Admitting Unavailable [place], DO NICOLE P Attending Unavailable [place], NICOLE P Primary Care Unavailable Wyckoff, Francesco P Attending Unavailable [place]ck[place], Francesco P Primary Care Unavailable [place], NICOLE P Primary Care Unavailable Rl, Mendoza Tapia Attending Unavailable Jean-Claude, Francesco P Primary Care Unavailable Rl, Mendoza Tapia Admitting Unavailable Jean-Claude, Francesco P Attending Unavailable Jean-Claude, Francesco P Primary Care Unavailable Medications Current Medications [...] (ASTE MAKSIM) 0.1% nasal spray Use 1 [place] in each nostril as needed. 0 Active Comment on above: Use 1 [place] in each nostril as needed. Calcium (20 sources) Phosphate Binder, Calcium Start: 06-07-2017 take 1 tablet by mouth three times daily Ly-O8-Ovg-Zinc-Geophysical Prospecting Surveyor- Cesar-[place] (Caltrate 600-D Plus Minerals) 600 mg calcium- [...] Comment on above: Take 1 tablet by [facility] four times daily as needed. esomeprazole 40 [...] Start: 09-24-2022 take 2 tablets by mo [facility] every other day, then take [...] Active Start: 10-15-2021 take 2 tablets by nh ut every other day, then take 4 tablets [...] (2 sources) take 1 tablet by joey once daily Qulipta 60 mg tablet tablet [...] 07, 2017 12:00am July 14, 2021 7:45am Lhaopcc-Mfzmobpjm-Sqo rodriguez D 600-300-400 Oral Liquid (13 sources) [...] NIACIN, BULK, MISC (2 sources) NIACIN, BULK, SC SC Qulipta 60 MG Oral Tablet (20 [...] on above: Take 1 tablet by joey as needed for migraine headache (see administration [...] Start: 10-16-2021 take 1 capsule by mo [facility] once daily venlafaxine XR (Effexor-XR) 150 mg 24 hr capsule Take 1 capsule (150 mg) by mouth once daily. 10/16/2021 Active Start: 10-16-2021 take 1 capsule by mo [facility] once daily Venlafaxine HCl ER 75 MG Oral Capsule Extended Release 24 Hour take 1 capsule by mouth once daily Quantity: 30 Refills: 1 Ordered: 16-Oct-2021 Joana Silverman Start : 16-Oct-2021 Active Start: 10-06-2021 take 1 capsule by mo [facility] once daily at mealtime Effexor XR [...] Test Name Value Interpretation Reference Range Facility [facility] Standard 05-04-2024 eGFR Non AA >60 Invalid Interpretation Code [facility] Comment on above: Performed By: #### 1 [id number], [id number], [id number] ####[facility] [place] [address] 69341 eGFR AA >60 Invalid Interpretation Code [facility] Comment on above: Performed By: #### 1 [id number], [id number], [id number] ####[facility] [place] [address] 82093 Albumin [Mass/Vol] 4.2 g/dL Normal 3.5-5.0 [facility] Comment on above: Performed By: #### 1 [id number], [id number], [id number] ####[facility] [place] [address] 84516 Albumin/Globulin [Mass ratio] 1.2 {ratio} Low 1.4-2.6 [facility] Comment on above: Performed By: #### 1 [id number], [id number], [id number] ####[facility] [place] [address] 20330 Alk Phos 68 IU/L Normal 32-91 [facility] Comment on above: Performed By: #### 1 [id number], [id number], [id number] ####[facility] [place] [address] 69389 ALT [Catalytic activity/Vol] 24.0 U/L Normal 14.0-54.0 [facility] Comment on above: Performed By: #### 1 [id number], [id number], [id number] ####[facility] [place] [address] Anion gap [Moles/Vol] 12.8 mmol/L Normal 5.0-19.0 [facility] Comment on above: Performed By: #### 1 [id number], [id number], [id number] ####[facility] [place] [address] AST [Catalytic activity/Vol] 25 U/L Normal 15-41 [facility] Comment on above: Performed By: #### 1 [id number], [id number], [id number] ####[facility] [place] [address] 38962 Bili Total 1.0 mg/dL Normal 0.3-1.2 [facility] Comment on above: Performed By: #### 1 [id number], [id number], [id number] ####[facility] [place] [address] 83683 Calcium [Mass/Vol] 9.1 mg/dL Normal 8.9-10.3 [facility] Comment on above: Performed By: #### 1 [id number], [id number], [id number] ####[facility] [place] [address] 87883 Chloride [Moles/Vol] 104 mmol/L Normal 101-111 [facility] Comment on above: Performed By: #### 1 [id number], [id number], [id number] ####[facility] [place] [address] 47212 CO2 [Moles/Vol] 25 mmol/L Normal 21-32 [facility] Comment on above: Performed By: #### 1 [id number], [id number], [id number] ####[facility] [place] [address] 09825 Creatinine [Mass/Vol] 0.73 mg/dL Normal 0.60-1.30 [facility] Comment on above: Performed By: #### 1 [id number], [id number], [id number] ####[facility] [place] [address] 65806 Globulin (S) [Mass/Vol] 3.4 g/dL Normal 1.5-4.3 [facility] Comment on above: Performed By: #### 1 [id number], [id number], [id number] ####[facility] [place] [address] 28357 Glucose [Mass/Vol] 99.0 mg/dL Normal 74.0-118.0 [facility] Comment on above: Performed By: #### 1 [id number], [id number], [id number] ####[facility] [place] [address] 70486 Osmolality 275 mOsm/L Invalid Interpretation Code [facility] Comment on above: Performed By: #### 1 [id number], [id number], [id number] ####[facility] [place] [address] 96004 Potassium [Moles/Vol] 4.8 mmol/L Normal 3.6-5.1 [facility] Comment on above: Performed By: #### 1 [id number], [id number], [id number] ####[facility] (DEFAULT)[address] [place] [address] 65870 Protein [Mass/Vol] 7.6 g/dL Normal 6.5-8.1 [facility] Comment on above: Performed By: #### 1 [id number], [id number], [id number] ####[facility] [place] [address] 39789 Sodium [Moles/Vol] 137.0 mmol/L Normal 136.0-144 . 0 [facility] Comment on above: Performed By: #### 1 [id number], [id number], [id number] ####[facility] [place] [address] 12846 Urea nitrogen [Mass/Vol] 15 mg/dL Normal 8-26 [facility] Comment on above: Performed By: #### 1 [id number], [id number], [id number] ####[facility] [place] [address] 33601 Urea nitrogen/Creatinine [Mass ratio] 20.5 mg/mg High 4.6-16.2 [facility] Comment on above: Performed By: #### 1 [id number], [id number], [id number] ####[facility] [place] [address] 24226 Lipid Panel Standardon 05-04 Cholesterol [Mass/Vol] 233.0 mg/dL High 66.0-200.0 [facility] Comment on above: Performed By: #### 1 [id number], [id number], [id number] ####[facility] [place] [address] 95753 Cholesterol in HDL [Mass/Vol] 68 mg/dL Normal 40-71 [facility] Comment on above: Performed By: #### 1 [id number], [id number], [id number] ####[facility] [place] [address] 37784 Cholesterol in LDL [Mass/Vol] 149 mg/dL High 1-100 [facility] Comment on above: Performed By: #### 1 [id number], [id number], [id number] ####[facility] [place] [address] Cholesterol.total/Ch olesterol in HDL [Mass ratio] 3.4 {ratio} Normal 0.0-4.5 [facility] Comment on above: Performed By: #### 1 [id number], [id number], [id number] ####[facility] [place] [address] 92929 Triglyceride [Mass/Vol] 82.0 mg/dL Normal 0.0-150.0 [facility] Comment on above: Performed By: #### 1 [id number], [id number], [id number] ####[facility] [place] [address] VLDL. 16 mg/dL Normal 5-40 [facility] Comment on above: Performed By: #### 1 [id number], [id number], [id number] ####[facility] [place] [address] 27907 Reminder Messageson 05-04-19 25 Reminder Messages - From: Lana Tijerina APRN, CNP To: [facility]ree[facility] Ramirez [place] ([facility]); Sent: 05/04/2024 15:28:30 EST ! Show up: 05/04/2024 15:28:30 EST Subject: Results Follow Up Actions: Call the patient with result(s) Due Date/Time: 05/05/2024 15:28:00 EST Reminder Comments: ok Results: Date Result Name Ind Value Ref Range 05/04/2024 9:49 Sodium Level 137.0 mmol/L (136.0 - 144.0) 05/04/2024 9:49 Potassium Level 4.8 mmol/L (3.6 - 5.1) 05/04/2024 9:49 Chloride Level 104 mmol/L (101 - 111) 05/04/2024 9:49 CO2 25 mmol/L (21 - 32) 05/04/2024 9:49 Anion Gap 12.8 mmol/L (5.0 - 19.0) 05/04/2024 9:49 Glucose Level 99.0 mg/dL (74.0 - 118.0) 05/04/2024 9:49 BUN 15 mg/dL (8 - 26) 05/04/2024 9:49 Creatinine Level 0.73 mg/dL (0.60 - 1.30) 05/04/2024 9:49 BUN/Creat Ratio (H) 20.5 (4.6 - 16.2) 05/04/2024 9:49 eGFR AA >60 mL/min/1.73m2 05/04/2024 9:49 eGFR Non AA >60 mL/min/1.73m2 05/04/2024 9:49 Calcium Level 9.1 mg/dL (8.9 - 10.3) 05/04/2024 9:49 Bili Total 1.0 mg/dL (0.3 - 1.2) 05/04/2024 9:49 Alk Phos 68 IU/L (32 - 91) 05/04/2024 9:49 AST/SGOT 25 IU/L (15 - 41) 05/04/2024 9:49 ALT/SGPT 24.0 IU/L (14.0 - 54.0) 05/04/2024 9:49 Protein Total 7.6 gm/dL (6.5 - 8.1) 05/04/2024 9:49 Albumin Level 4.2 gm/dL (3.5 - 5.0) 05/04/2024 9:49 Globulin 3.4 gm/dL (1.5 - 4.3) 05/04/2024 9:49 A/G Ratio (L) 1.2 (1.4 - 2.6) 05/04/2024 9:49 Osmolality 275 mOsm/L 05/04/2024 9:49 Cholesterol (H) 233.0 mg/dL (66.0 - 200.0) 05/04/2024 9:49 HDL 68 mg/dL (40 - 71) 05/04/2024 9:49 Chol/HDL Ratio 3.4 (0.0 - 4.5) 05/04/2024 9:49 LDL (H) 149 mg/dL (1 - 100) 05/04/2024 9:49 Trig 82.0 mg/dL (0.0 - 150.0) 05/04/2024 9:49 VLDL. 16 mg/dL (5 - 40) 05/04/2024 9:49 T4 9.32 mcg/dL (6.09 - 12.23) 05/04/2024 9:49 T7 4.20 (1.94 - 5.91) 05/04/2024 9:49 TSH 2.09 mcIU/mL (0.45 - 5.33) 05/04/2024 9:49 T3 Uptake. 46 % (32 - 48) From: Lisseth Silver MA ([facility] ([facility] To: Jean-Claude [facility] ([facility]); Sent: 05/04/2024 15:52:43 EST Show up: 05/04/2024 15:52:00 EST Subject: RE: Results Follow Up portal message sent - tv Normal [facility] Thyroid Panel 4on 05-04-2024 T3 Uptake. 46 % Normal 32-48 [facility] Comment on above: Performed By: #### 1 [id number], [id number], [id number] ####[facility] [place] [address] 01076 T4 [Mass/Vol] 9.32 ug/dL Normal 6.09-12.23 [facility] Comment on above: Performed By: #### 1 [id number], [id number], [id number] ####[facility] [place] [address] 19338 T7 4.20 Normal 1.94-5.91 [facility] Comment on above: Performed By: #### 1 [id number], [id number], [id number] ####[facility] [place] [address] 19493 TSH Qn 2.09 m[IU]/L Normal 0.45-5.33 [facility] Comment on above: Performed By: #### 1 [id number], [id number], [id number] ####[facility] [place] [address] 51493 Outside Recordson 04-13-2024 Outside Records [id number] Normal [facility] QuantiFERON-TB Gold Pluson 1 05-03-2023 QuantiFERON Incubation Incubation performed. Invalid Interpretation Code [facility] Comment on above: Result Comment: Perf ormed At: [facility] [address] [place] [address] [id number] Rocky Giang PhD Ph:[phone] Performed By: #### 0 [id number] #### [facility] ([facility] [address] [place] [address] QuantiFERON-TB Gold Plus Negative Invalid Interpretation Code Negative [facility] Comment on above: Result Comment: No r esponse to M tuberculosis antigens detected. Infection with M tuberculosis is unlikely, but high risk individuals should be considered for additional testing (ATS/IDSA/CDC Clinical Practice Guidelines, 2017). The reference range is an Antigen minus Nil result of <0.35 IU/mL. Chemiluminescence immunoassay methodology Performed At: [facility] [address] [place], [place] [id number] Rocky Giang PhD Ph:[phone] Performed By: #### 6 [id number] #### [facility] (DEFAULT[facility] [address] [place] [address] 56404 Coding Summaryon 02-10-2024 Coding Summary [facility] TksathwbUBw1hId+PGhlYWQ+PE1F GHUyB87bgHXcyL5iJ5NEAGcASrwl JTBTSPhKTdMkqcWxCD4kcKDxGGRe IC8+CQ6oOLRwLkrecJYhg0K2dBF7 D75ffa8fOEfbpZN1JQFjHqYqghfp k6udgUy8QTjaSrdpIqRa HKWnoR99LAH3lU09Kx36gRZigOHc w0jwyXe1PlDmDWWdHGW4eHttAMqd u7ImISUaN04voZRve5B2 CGRnwHwjqQDqFmRqoRF1pZ6oZBnn snddo8dlunygIza8dt82rDSys7O8 dWC1C2AtipN1HZHuzDXy ZfjvqDBOgR0okrkxv8ycebepKhMe RTTaHFv2LEj0GOVpkNzuQmFqSN59 OUL2VQPtlfMuL8VbYEKl lAxbOgI1u5C0Ut8EX3VPFppxA0LX TUFSWTwvdGQ+AS33qa52F7KfHqkm Kxe4LJTbFLL4bJU8yV0w ZEDxPAtip6R6zLZ1R3GfuxAbvg1k z6cyZTAuSQdwO89gjQGjz1Z0VMGh hND7HIXyhHhwMyYxhW45 Oyc+RRSpbYbcn7CwKoqrq7wbh6za qYn9UhwwGNSocoPidSgbUPA8m0Ix Er9lLNOpoSW1tLU4nA2x TaXeFmU7FBwzN836LuAbgLLcWwit D81tZ4TbrWP+UOHkWdd0CUBpcBew ZH6pS6VoERMyqonvkICc fTnrPI6uYPXwpvqaVETslP2tOGFm Y1c7ZkIpIoQ4QYwlP9EpQUOyxksg Uv71nC4mUkWmIxV5RVyd L1CnpmV0KRVprJSmRUfbHFU3S67k c9K4FXGvTPShNEI5dOS3fP5kzTsu bjogbGVmdDsgdmVydGlj XOrjIHlqO961MLFkeOujZcJjUMsr ZyBEYXRlOiAgMTAvMTcvMjAyNDwv dGQ+TICeOSZ5aBijGTFz jRZtFMamTm0ocBlecJxyRW0yEKKu xgllDKQtdH1lDJLxjKHlmWbpYV3p RXZpqmwgf217NiPgSXR9 OWXgxVTgF8TlhW9sIoPeRXUqDEKk X9CjqZYdVLfnO249MThxRhV0XFEs rgHrO9CzCTAunHctIzL7 j8R3Ay0Qj0GbdemqF4IxxIXbUaWm CdivAFa9Q4PrNgbprCG+JU14SPXg YB56CFq5HAS6xMdeLIwd CQLiD4WhjK8cBeDlJJHeRSTaQae+ PHRhYmxlIHdpZHRoPScxMDAlJyBz eRwcYI4jUg4aRHSmPNQg aDpjdRRcMrImb4dqTGElEKdaTD2i tIurD5IehQI5DABgm8j1Or46A22c O1QpyIR+YCJylUQ2hSL5 nM0vMiKtDgR2OSnbZ822ChNbsJDr Hrhph6fyx3yizBk7HzH8HTZohyVh oZtuJJF9x2EjBs01N54s KMnuJAHjLRAxFWMlRDNpdKbfro7z wH4kZz5+YLVewDC2hKG1qK6bZcUm CjX5TWuxU979MyNsrAEy Fapeq3afq9vdfAz7ZkBsRUZrozGh tRrhGKM3z6SkDg26Y1MlfFuic4Wj Bpl9ev84hJYdo1Z0zEI1 S1IsOMBdjgfabBTzkGjxTY1kWNAa pkneXTCnlX1sZSNdX1w8XaVmLtI7 GIhqK1TleyL3NWNjnBUf XOKpuVEFzM7mewsxo8wjbenfYdRf RCDkBIl8OZm1RDUfuFcsLeHgGIX2 PdO4RPI2wPTxiL6dxKvr uaaxsL0dHdn+XKK3eHMybSWGHV2w OjwvdGQ+PVVcHNM6lQqdCGzcTZKp gC8hAOPgZ6g1PnVvQaZ1 ZCvxG5IijwV8GKPhbKWgRITjwICW nE6snevth2iklgpnPrOuWPKiNHb2 GOh7NLKaeRllTkEqPJJ3 PlS4SYW2sDQwuA7txDjcomsfiT9m Oyc+MhlkqWbkXCZ4FGh2V9ZmHzg1 TEKvgBbqMX3mbCGnJVff Al4rhAixkRzaYR8sKEUeygast751 RbHdo1qcRFGokNLgQIowHXR7Z55e e8D7LYIoMDJyPTG4qBU0 eF2joJzhrgkvzGXlnFvcijBctQzb OIksJZbsD145TJUsnQuwQnFpLXv4 C5MgBda9GCMrqLvgSG5z iQCcGCfgMn7dvGfyoKpoXT5jDENx uiexj120QlKky6ozOTDscFJqAInl NWY4C59qe0K1QMHgWRSa OWY6eTV8tP9wdUuzqdbpzFYofEaa jmMncVqgPOfuLElwO671JCNvyRlc SqTzeXe7K9YoNlv8OOYy tChtQS0dnWKrMZrdRh5yxOerbYeh VF5pPKUdhuqfx556WkGyt3rcWOLy eJQqZKrxGCJ5M13nz5O4 WTKpIAVoQEP0yPM7lK0lgPcadgqk eWHgkAnlbaBuqBdbWCgaIDbkD155 IHRvcDsnPlBhdGllbnQg FWsdFKb0X1VwUkpnqXE+HB71DXRo QE38hTTikJFti2xcxHu1UxWwHXTw KRA9sEarNLjpf9NvTOHy L81oeEZeh7W7QFIvzQknrDAaFcZb tXL8wR6bZHalykhco9cobkwyVpid g0ebqa66oI14T86mLQxk QVVcGNUuMCCdOWZtwRjzkv8oxL2u Ii8+ISPiuCC0lOD9tI6gOSMgNjR6 ZEwsN771CfRnzZRsUwfw f8pow1zlbHp4AzQ7TRQnnvWnaIny WZS2s7FiIe39Y22yAXpzAXNhXOSm ESPnZKJwwIyvho0zyU5w Ii8+NUVkaEP6sBX4mJ8rBfJpHiG7 PWgmH502ToBfhPWoRtmkA47hW3Ou dXA+GGIdYpu4DNHebYzr GJ8xzVOeEGcrTq0rJJB2OnEtQdFa DAogA9IlWZEcgeuqivawjZS8PDVv XMWrjK14Le0npAswSYVz eIGKuR4uaxzkl0gqzajmVoDdOCGs KMp1DGf0BACqnKozIxTwWXP1TbY1 ALW2sWIsrV2lxDqklyfl eT5dK2FhSKItzcztAz10zL1cRiVj RkH7HJkhBeo+C6KMP3cPQVZPSVcF ZIDKVe29Y3MoZri5OOCl jNdsPR3roHUrWWdcNm9tbZhhzXqz XI6rFSZdhbdhPRJsfV2hVDBepGOe yUgfUN1jJXYtlwtkr869 ZdUxTMX2VHXbmVNqD9JpkY0fNnOi ZLJsVFLsZ8UsqJWiIBpeF053UPuz UrP9LJVhdvXjY4FgLXJd iJyrJwJ0l4M4Ls8oWY7wRE3nBML1 NB79BX55kYAff2R9pSX0J8BnQRLm aanngjnjvES6SKGzMJIu lK96wRAuDIjkPp2ki8N0z363JRKw NAHlaZ27Bb5knHcoFDFolIYEeY1e cqhww6wjjrlnNwNrUIWe KWf3URv5EHDzyMrcXvKsSXI2ShF0 MVX3uPNbsA8nuJtyldontC5iVxu+ LasyOYUvdxY4M0CfWsm4 QPByaXoaCG3khRBcTIoiUm4qnLcu vFkwYY5xKITqddeyHHWtlG6fYUDk tETwqUysIM7gJIIwyybb w873MeDtGFS5DKQhdUIpW4UjmC9e SfIfQLNiSJRaJ3RbsAYfLOmzO406 TIjkBaM2PJOudyLwE2Nf XQFmhDirIiH8f6B8Sj4GKR0EYEO8 M3EiJsi4VWZmnYufWY7qrBSbEQve Mb2prSzohEsjNF1cNNKl ftljCHKncK1iDMLldIIwuSozYV9b HCGuifbaf704QaZhIBD7SJVflDNv A7HwgL3wWaTrZDMpXYDo P7BfcOKzPIioF790UUsxGaG3VOAw fqDoR6IpQBOfgIfkNwB4q0U6Fy7C UDwvdGQ+FY46an76Q3Oq FcopAcv4YCAlBYI2zVR8kM8aBZEk QVbxp4S4pDB2E5LnwyPasv7cm8oq RSRgZKbgE55vzXDsz9T4 PVXqpSU0GFTwsLszXvRnrV83Smq+ XSYbdXcwv7OnCftiu3xtw7jzlRq8 IjMwJSIgdmFsaWduPSJ0 f3YqMj04E06eQWkwPUJvYFVwEBFt CVLxpBlpjv2eyA7yDt9+PGNvbCB3 dKX5tV1yOmTqOxG9CHvi R787DuHhnRMpIupet0mos8aoxUv9 XjUdHQYeczZsrYzgJLL5b1WqXi50 U0XvuEneg4ZxYsb9ot40 vMUbg5S0dFA1M2ViGKMtjeabiGEi vVkeJO2xZMBhhpmdGVDzgG0xNFMy T6g9RgLaVzP9USbpP7Nf ezL4RTAfgVDxFGWxiSGQiK9jigwj g5iodveaGmSrXRTtRDe8KFp3UJQi pTpvLnGfCGC3RuH4XMJ8 iZVnjJ7xvPpcvisuaQ0sSam+UGh5 g5zcbMNmKQ9buRN4RV30HJ42kXQs d0C3wFP8B7YnEDMhrpkr gisgvJD9JRAdRFYceJ05Va5jlJnb Ws0dZEJsVZP0KUBteOPpG2TojP8v TkDdHSRxLMKoM3GvsGUw OJzoU904GCysYqS8YPGgrzSkE4Vn UEOfiXumIrL1n3K3Uq9JUT14HW78 YY10zOVnw6C6cDY0B1Vn PQHzdyswkrtowPM6IZReVABbpL06 He1ttPnhAb6tMBRnVZY9LAReuUQp I1JtyN3sZnPvOLZoSYGm W1UnbUXwPFgzR561OItnXzP8KISk aiLzA9TmSRIlmTxaSaP0b9S2Kw4I Ye12LV43ZD12eDSun4S8 jRN7R6LsMLMljnzrnktsiVW1WNWg MXMvjG07Cf5qwZeyFo6qVRHjOVH5 QVGfsQUzK3HvoG2yStYg BBYeMUQgF6WzdAFqAPgeB052BBcq UrU0VXLaynQxG0JzZZKpfAjxGuT5 m3M7Hb7QOBtnubz2O1Kf PjwvdHI+NL99NHIlIH01bZXgqFUi b1xwjAs6PyHrLGYzVZX3xDqtFTfy z7XbPVKlF15gsPYaa8Z9 IGN (more content not included)... [facility] Provider Orderson 02-08-2024 Provider Orders [id number] [facility] Rad - Other Radiology Report on 01-26-2024 Rad - Other Radiology Report [id number]#1.00OTGTIFF [facility] Rad - Other Radiology Report on 12-20-2023 Rad - Other Radiology Report [id number]#1.00OTGTIFF [facility] Coding Summaryon 11-30-2023 Coding Summary HTMLBase 64 AkmcylpiTLe3vYt+PGhlYWQ+PE1F WTMxX70kuGVulV0gQ0UKFFjMVyat CMCXUUzOUdMdtzGqXP0qbAVpNUUo IC8+BM1zJCBqZcjwtHSch3R0fEX6 L31kyk3oTQuluLY8JNFnNoOituvk u0pflRo9GAyaBvygXgSi HIJwmJ50FBX7gS56Wz25sFQpfULg y9fitFh6RyNcLZNbFAO3lJfcTTad i2IfUJDlS03wqFGls6F9 IJHolBrnaEGnMdQxmRW3uX7eYXpm kgtaq0nrscztQpv4mq57lMBzy9W6 hFT5N6UjvnZ2UNCzgAQr FavghCIZeT3jxbabl2foddpbNjOv UBBnGRj0SCy7IVWizNseYnWbLZ34 RTC8JJGvxpNuW6KjQABo cZmzTsZ5d6Y8Ux8TI0UZKoatZ9OV TUFSWTwvdGQ+MU72af16I0NwRdsy Cwb6UHOnOGT1iJX4iK6u CKDvKBwto0U5fLB8I3KyflWkci5d g8nqSWOmBPjqM24thALvw5P5RXDp oAN3ZGZrxJtyOlOusS60 Oyc+FFRcrSyse9VwLpzww1xay7kq gRi1BpdiNEIwioOxvBtpLIA1d9Ao Cr3yZXQbmRN1rAR3mT5f LoQcNfZ8UCazE161GjAjoESpApgr T50vM4KbaJV+TTPvMlf4AVRnxQxw YM6lO2JoGPAkbfztmOOx jOpuZZ0tCVZubbdvJICxpG0kTREn V7l7CuKpYhM2ZDerG2ArMUHwtvyz Dd97nT1tAcXrJkY4AXhd H7MsmfZ4CRZvlWYoYGenTXB5F49e b1H1PZLxFCDhNMP7hRL2cN5fhXxv bjogbGVmdDsgdmVydGlj CFabXSdfZ644VLFhjAktUaRwTCag ZyBEYXRlOiAgMDgvMDYvMjAyNDwv dGQ+BETbLSH1xPtuVMNd pHCwQBwoVa6njZqnuIbrXS8sFPAt tvsiCHPczK1xVDMcrSHnuMbuVM4i POIosjesj483ZoEeVFL7 TEEznFKjN9TcxJ1mTgRtDRAbUCMw C1BwzNZyKKqoQ496KDytYyZ1AOOe ptFoU0DhQUKppWjnQwF0 s2U9Ts4Ck0MfewecJ0YvfFYbRbEp MmghAAx6N7VeOyvljUA+UD04EGGc PP58WPa9ATO0qJvjRXzg JEPhL5BzzL4wCzVjQFAvYCQyNkn+ PHRhYmxlIHdpZHRoPScxMDAlJyBz qEpuQD5cFx1eDFUaGVJq cZpuiTBxOsHih4enAJLdKMshWA6c yQebU4RlkHE6XINec3i6Rr53Y62h U9BwjFK+UILskXQ1qRW0 zT6vTvLjZlX5XIbxW178EuTwgHVa Kldnd7fcs7gkoCn6OvT9EXZxgtTi oNbhBMP9n7NjYe98U49j XWgiOJDwPXQgODZwJTNtwRwgei1u oI2aZc8+GJFqtCT1hSL6mE9hViUa WpY7PNmfV421ChWonULb Dggdv2qgg9icfVc1CsTeGOLhrmMh bAcuEHJ9y9QpGq21Z0VbeJdmb5Fh Exu3db95jWHpv7W9lKK8 T0TcCWVybklrkWGetSzrXD4kRLIw mcdoJGEjcY5xUZLyR0q8LhKxRjZ2 YNjcQ3BbnfB4XFXicICw ZWYkcVHKvL4ynclac6ehuhzsXqOx KEFdDBm7LZo4UGAzuDbvJfKmQDB1 NuH2JWR1uJTsrM0qcAow dzyzjH6kNok+MUF9dYOmeUHYCV8p OjwvdGQ+DOQnFFK3rPevXEhgHWWc hZ2eCMNgM3j1RkRsYaG6 NRqgG2GmbxD8CHPhaYUrOOCytCEB gL8mzhzkc2kuehkeKzWmEUMoIYg0 BEw0YTBsnRoyLgBsZDV9 CwJ8DOD2nKFyaM2xwMxndrgsdJ9e Oyc+TvnntEwaPUK6DVs7P9BvVja8 OOXpeKzeZY5gdSBxVLrk Th4qvFqnmFrxPS0pRGEjqlqbu111 UoZkm2tiKBGywHTiNTxxEEM0W14r w2V7DGFlZVCoMZZ0eNI9 bI0wqKdgysaruBHzwPcqenHguIpk QDgjDRhgL594MGUqfBoaLmFnQFh2 A0OtUky5IENnaOdxWL7y oSEwGRhxYa2mfFpxeYyvSJ2xBCPr nnnvc376PdGgo7hjOSJyyOXqKRzv CGS8G57zj7N0BHEvADZz JBR5lLC6pL0viAyjcfdroMOkvPyu qdJmqCyeQAfmAHofB703ZBBvlIvq WgKedZs6H4CvUha8ULYq kWkzWR3haPMhKMcyLd4quIkzsGtw MY6gQYTftkzqh765IzGxm6cpHLZi rJLqBEjtXJP5A15ja5V7 JHEvOVGgPIL6bPG0jI1ceEilkmis hKHdfOqsfqOrmDyhMRaoTFgcR567 IHRvcDsnPlBhdGllbnQg FZwfYJx8B9YhKyyseWM+HQ98PFQe MV79aQWydXIep9hnwXb9NsGgNPUv GVF7xBkwRJyrn0WrZLEg H73wdDGrl4W6NLGzdLufpNJfYlXt nIK1wY1pCWjticaur3lloiuyEswj q6zsrg85sJ51E42gAKzs RGUxMQNqPCEjEXKxvLinod9veR8h Ii8+IOOujDC9aZX8iD0mEYHoNhZ9 MGszC725NpVbcUHzCohx a1pip1pbeAu8WcG7WVUetpSsoHdt PYM2m7SnWe86N29qSFccORAnJVJp VZQcBVTkiYykeo2cqB8d Ii8+EIMtlYH2gHW0sO9aXfCpPoI1 XUtdN451VmKtqVSpZscbX31kY0Nz dXA+PINiIvf4RQZdlYfg OW0tjWUfZAofUv8kLNX3XrFsYqTl FOogD6CmOGNkrtsgtvupeEB9DYUp FBBydC79Rj2wdUcxEIUr gJPYbH3oeuogg3qxqonhAfTwNJKw GCe2BQn7AAYxdPwlGqIrNLT7KlS4 HIK5bYPxaC4jtVrvmpyi xE4sX8IgOGFhwqbvGs79xT1mWjKm LkU9SZnyJfl+T1ALO8vDOUGFAXqO YPMZGs69N3MpBqn0VEHd vVsqQA8qbKDcYMwkWd3gfYameJlw HX4hHISvmjqeEGUazN1jGAPhwUVr nQppZR7yOWSsrdeiv835 SwXePGR6MCOrxQYaN5VfyB6lEpYk HIFjDXEvG1BlcVGhFTyhD040ZSgs PyE6WOYxlsWkD8JyLCVe wCzwMlC4a3H4Yw5uRM1hUO8aWCX7 CH78KS53xXFjr7I5gQH1E1QxZKFo qhwwkwcwdTT2YXYyIFYe cR48wJKpULlsLz9sf0G6a161NSLo CYKxkX64Qu7ifUvjBSGqxUVJeK5p jjrdo6nuqxlyIuBdZVKy BKo1QVu3ZSUxoPhsEpEnOJA1VjP4 FRS1oORqtS8qqOqedfglwZ4iQif+ LrebFIPoqjL0C3LpKcz1 ESYozAlxQA0yvGXxQGtmGw7bgLhq eSwuDX1sZUAxhfauOCFnsS8cMIOp jVKdxFwjPK2xFSJsquve x161QaJdXDP2OGHbfUAaH4YzpI2c RyEoRVTqTLXxA0VgzABqCAioO270 WDdaZqB5GVRbrpWhK4Se MIRjbKejUnL1h6Y9Ky8TRD0BZTM4 B6QiXai6MWDnzDduZG1bfQXaGEzf An7fxPgfjLbsCN5jNWOi bsddETSczT5lTZMbzMFzzGafBS4r ACPfntvxj372VvObMBO8CHVwfVJv X6JkdW4fBcLgDHCpKKSk K0QkvFBkDMxyB377BQgwOoM6SUPg hdUcA4GvWZWkwQqlVaA1h2J3Dd8S UDwvdGQ+TD20ab18U5Ba MamyJhh5XOTpSZV7aNW1hM9iVJQe JCdeb1B4yLN4Y5RndlCptp0oy0br RCSkDCzoC18dmPQgs4K2 JFJqwYE6YKPffRaqQkEbbP91Ddi+ VPKbuRlii0AgQults7cwn6kaaNz3 IjMwJSIgdmFsaWduPSJ0 o4TqLh35E05aQHziROClQMBdEFYr TIDhrXrcqw5ghP8zNy1+PGNvbCB3 zGK2aD3dZoZyMeM0WTio Z765JlMizVEjQinre0let1tatPr3 TyAsAKBqytHfzNtrOBR8w3YlTd28 P4GslTzae0LoPpq9nt47 yZSfw5F4vQQ2S6FiXNKgptfeuKSq fMaiUR0fSUNrrwoaZXMxiR5sQFHn A3x9PyYuPbE0CUzwK8Fd vlQ2DKGhvJElUULawYBSpL7duntm o6zecgdhByLdRCOhACp1OTr7QXKk dNlbJpPmSRB8EkX1ZBJ4 wMNatK2yvJzmttcggN6oDfu+UGh5 w9ssxQFoVQ6cyQU3PL89QF95mNLo i3A0zMF9A6AdKZKytxmu lxlwhFU1ICDbUTDytY87Dv5srMua Lt0dDTMjPTR1IVGhsPPkJ0LdxX9q XfVpYFThFHUjP1NxsFLy BStbV542HZpmEdE9WMPlpyBqV2Ce XHUxfVvoDaY6v5P2Hi3VNO98ON24 RS01kKNiu4V1zGQ3Z2Lr YCTfhwetwpejkCF9RHUqVLFukJ12 Km5zeAyaBs3yIPTgWBG4BLTsdCAm F6TawI6hHeSrFTQmCFJs C6OfqWZvAUgtM154KMvbSuH4VFQt tvWhP3TlVNBtyUgpPvM2j5K3Tg7D Ht92DD98PV26qZItr9C7 cSC6O5YuZROgzsfxagnhiFO0ACBi IGMjiF53Rx5isHsjFl8gGNKlBUX5 TQSyrDYhD9RtaQ2lSlVv ELHzSGRkR7FibODdPAkpL782DKrk YuT0FCRedxFjP2SrFMIivRexPnZ4 z8D1Mz0BHYmburw4C1Ct PjwvdHI+GG23ACYgSV85hXOvmDYv g4makWq4JdJaHUOxCMI0qVxhXBpb p8HoGLPvD99gbORyd8M9 IGN (more content not included)... [facility] Rad - Other Radiology Report on 11-25-2023 Rad - Other Radiology Report [id number] [facility] C Urineon 11-12-2023 C Urine Urine [...] <=4 Verified Tri/Sulf R >2/38 Verified Normal [facility] Comment on above: Performed By: #### 1 [id number], [id number], [id number] ####[facility] [place] [address] ED Clinical Summaryon 2023 ED Clinical Summary [facility] ? Urgent Care [address] [place] [address] Clinical Summary PERSON INFORMATION Name: FLAQUITA ROBERTSON Age: 68 Years Sex: FEMALE : 1955 MRN: Acct#: Visit Reason: UC - Dysuria; URINARY FREQUENCY/PAIN, FLANK/PELVIC PAIN Arrival: 11/10/2023 19:27:17 Discharge: 11/10/2023 20:35:00 LOS: 000 01:08 Check In: 11/10/2023 19:27:17 Checkout: 11/10/2023 20:35:00 Address: [address] [place] [address] PCP: NICOLE PETERS DO PROVIDER INFORMATION Provider Role Assigned Unassigned Ashlee FRANCE, Lisbeth ED Nurse 11/10/2023 19:29:13 Patricio Moser [...] EDUCATION INFORMATION Instructions: Urinary Tract Infection, Adult, Jcnn-[id number] Follow-Up: With: Address: When: NICOLE PETERS [address] [place] [address] [facility] (1) Within 3 to 5 days DIAGNOSIS: UTI (urinary tract infection) Patient Understands: Yes - Patient/family/caregiver verbalizes understanding of instructions given Comment: Normal [facility] ED Patient Summaryon 024 ED Patient Summary [facility] ? Urgent Care [address] [place] [address] PATIENT DISCHARGE INSTRUCTIONS Patient Information Name: FLAQUITA ROBERTSON Age: 68 Years Date of : 1955 Reason For Visit: UC - Dysuria; URINARY FREQUENCY/PAIN, FLANK/PELVIC PAIN Arrival Time: 11/10/2023 19:27:17 Primary Care Physician: NICOLE PETERS DO Attending Physician: Patricio Moser PA-C Comment: Patient Education With: Address: When: NICOLE Arroyo Kareem Pettit [place] [phone] Business (1) Within 3 to 5 days [...] these instructions at home: Medicines ? Take nreb-tfe-wuoxfoz and prescription medicines only as told by [...] provider. Document Revised: 11/22/2020 Document Reviewed: 11/22/2020 Elsevier Patient Education ? 2022 [employer] Medication Information: The exam and treatment you received today in the [facility] Emergency Department were for an urgent problem and are not intended as complete care. It is important for you to follow up with a doctor, nurse practitioner, or physician?s blood bank assistant for ongoing care. If your symptoms become worse or you do not improve as expected and you are unable to reach your usual health care provider, you should return to the Emergency Depa (more content not included)... [facility] UA Veytx4ya 11-10-2023 UA Bacteria 1+ [facility] Comment on above: Order Comment: Urina lysis Microscopic order added on by [employer] Expert Rules system. Performed By: #### 1 [id number], [id number] ####[facility] [place] [address] UA Mucous 1+ [facility] Comment on above: Order Comment: Urina lysis Microscopic order added on by [employer] Rules system. Performed By: #### 1 [id number], [id number], [id number] ####[facility] [place] [address] UA RBC >100 [facility] Comment on above: Order Comment: Urina lysis Microscopic order added on by [employer] Rules system. Performed By: #### 1 [id number], [id number], [id number] ####[facility] [place] [address] UA Squam Epi Few [facility] Comment on above: Order Comment: Urina lysis Microscopic order added on by [employer] Rules system. Performed By: #### 1 [id number], [id number], [id number] ####[facility] [place] [address] UA WBC >100 [facility] Comment on above: Order Comment: Urina lysis Microscopic order added on by [employer] Rules system. Performed By: #### 1 [id number], [id number], [id number] ####[facility] [place] [address] UA w Culture if Ind Standard on 11-10-2023 Breakpoint UA [facility] Comment on above: Performed By: #### 1 [id number], [id number], [id number] ####[facility] [place] [address] Color (U) Yellow [facility] Comment on above: Performed By: #### 1 [id number], [id number], [id number] ####[facility] [place] [address] Culture? Indicated Invalid Interpretation Code [facility] Comment on above: Result Comment: Resu lt created by rule GL_MAGR_ADD_UA_CULT Result created by rule GL_MAGR_ADD_UA_CULT Result created by rule GL_MAGR_ADD_UA_CULT Performed By: #### 1 [id number], [id number], [id number] ####[facility] [place] [address] Glucose (U) [Mass/Vol] Negative [facility] Comment on above: Performed By: #### 1 [id number], [id number], [id number] ####[facility] [place] [address] Ketones Ql (U) 15 Normal [facility] Comment on above: Performed By: #### 1 [id number], [id number], [id number] ####[facility] [place] [address] Micro? Indicated Invalid Interpretation Code [facility] Comment on above: Result Comment: Resu lt created by rule GL_MAGR_ADD_UA_MICRO Performed By: #### 1 [id number], [id number], [id number] ####[facility] [place] [address] UA Bilirubin Negative Normal [facility] Comment on above: Performed By: #### 1 [id number], [id number], [id number] ####[facility] [place] [address] UA Blood LARGE Abnormal NEGATIVE [facility] Comment on above: Performed By: #### 1 [id number], [id number], [id number] ####[facility] [place] [address] UA Clarity CLOUDY Abnormal CLEAR [facility] Comment on above: Performed By: #### 1 [id number], [id number], [id number] ####[facility] [place] [address] UA Leuk Est MODERATE Abnormal NEGATIVE [facility] Comment on above: Performed By: #### 1 [id number], [id number], [id number] ####[facility] [place] [address] UA Nitrite Positive Abnormal NEGATIVE [facility] Comment on above: Performed By: #### 1 [id number], [id number], [id number] ####[facility] [place] [address] UA pH 6.0 Normal 5-8 [facility] Comment on above: Performed By: #### 1 [id number], [id number], [id number] ####[facility] [place] [address] UA Protein 100 Abnormal NEGATIVE [facility] Comment on above: Performed By: #### 1 [id number], [id number], [id number] ####[facility] [place] [address] UA Spec Grav >=1.030 Normal 1.001-1.[address] [place] [address] Comment on above: Performed By: #### 1 [id number], [id number], [id number] ####[facility] [place] [address] UA Urobilinogen 0.2 mg/dL Normal 0.2-1.0 [facility] Comment on above: Performed By: #### 1 [id number], [id number], [id number] ####[facility] [place] [address] Urine Source Clean Catch Normal [facility] Comment on above: Performed By: #### 1 [id number], [id number], [id number] ####[facility] [place] [address] Urgent Care Note- Provideron 11-10-2023 Urgent Care [...] Social History Medical history: Resolved Asthma, extrinsic ([id number]): Resolved. Osteoporosis (838340669): Resolved. Fibroid, uterine ([id number] 8J0S147RY): Resolved. Abnormal weight gain (744719948): Resolved. Viral wart on right thumb (5312408386): Resolved. Sternoclavicular joint strain (848.41): Resolved. Migraine (51387119): Resolved. (306514504): Resolved. (200310793): Resolved. Acute maxillary sinusitis (812950166): Resolved. 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 Rectal bleeding (466062643): Resolved. Iron deficiency (37191419): Resolved. Antral gastritis (9797951): Resolved. Esophagitis, reflux (027243824): Resolved. Hemorrhoids (197412837): Resolved.. Surgical history: MRI of brain (8454505097) on 06/02/2021 at 65 Years. Colonoscopy (557255035) on 04/07/2021 at 65 Years. EGD - Esophagogastroduodenoscopy (2038972910) on 04/07/2021 at 65 Years. Removal of mole of skin by excision (050167131) in the month of 11/2020 at 65 Years. Excision of skin carcinoma (872214288) in the month of 03/2020 at 64 Years. Mammogram - screening ([id number]) on 02/08/2020 at 64 Years. Bone density scan (982473364) on 05/30/2018 at 62 Years. Comments: 06/02/2018 15:04 EST - Gulau, Angélica CARTON INSPECTOR report scanned Mammogram - screening ([id number]) on 01/14/2018 at 62 Years. Comments: 01/17/2018 15:38 EDT - Angélica Scruggs LPN WNL Colonoscopy ([id number]) on 06/08/2017 at 61 Years. Comments: 06/10/2017 8:23 EST - Angélica Scruggs LPN normal Bone density scan ([id number]) on 12/10/2015 at 60 Years. Comments: 01/14/2016 7:45 EDT - Allegra Rosado Osteopenia Colonoscopy ([id number]) on 06/01/2011 at 55 Years. Comments: 08/13/2015 12:16 EDT - Miguelina Patel normal Cardiac catheterization (36510914) in 2007 at 52 Years. Colonoscopy (161866521) in 2006 at 51 Years. Appendectomy (644707066) in 1978 at 23 Years. Total hysterectomy (663968260).. Family history: Primary malignant neoplasm of colon Father Grandparent Diabetes mellitus type 2 Father Osteoporosis Mother Depression Mother CVA - Cerebrovascular accident Grandparent Coronary artery disease Father Alzheimer disease Grandparent Dementia.... Mother Hypertension.... Mother . 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 Normal [facility] Recordon 07-17-2 024 Urgent Care Record [facility] ? Urgent Care [address] [place] [address] PATIENT DISCHARGE INSTRUCTIONS Patient Information Name: ROBERTSON, CHAR Age: 68 Years Date of : 1955 Reason For Visit: UC - Dysuria; URINARY FREQUENCY/PAIN, FLANK/PELVIC PAIN Arrival Time: 11/10/2023 19:27:17 Primary Care Physician: NICOLE PETERS DO Attending Physician: Patricio Moser PA-C Comment: Visit Diagnosis: Diagnoses This Visit UC - Dysuria ([id number]) UTI (urinary tract infection) (N39.0) If you [...] legal documents With: Address: When: NICOLE PETERS [address] [place], [place] [phone] Business (1) Within 3 to 5 days Medication Information: The exam and treatment you received today in the [facility] were for an urgent problem and are not intended as complete care. It is important for you to follow up with a doctor, nurse practitioner, or physician?s blood bank assistant for ongoing care. If your symptoms [...] so we can reach you if necessary. [facility] has provided you with a complete list of medications post discharge. Please inform your gas and oil servicer/provider of your visit and for further instruction on these medications. Any specific questions regarding your chronic medications and dosages should be discussed with your primary care physician(s) and/or pharmacist. New Medications [id number], [address], [place] [id number], [phone] nitrofurantoin (Macrobid 100 mg oral capsule) 1 [...] apnea Patient Education (more content not included)... [facility] Coding Summaryon 09-30-2023 Coding Summary HTMLBase 64 BblsspszJGq5lCj+PGhlYWQ+PE1F CVRcF00xzQVyfO3lL3NYERlWNojm HXKKVMnMHhRjozBoCC1hqVIlMUVp IC8+DM0jLAToDnweyGIml3N6hYE5 Y92drr9jPAhyhJU8GXSsMfWpaysq v3znsUq4UXdwWshmStSb PIZlbD47YTT3nB69Nw60lXWoqVMy f2fxuLz3EwPfBNOlEYC2oFktNRyk m6GaXTFtL90ucFCsn4V1 TRBpyGnwfOSxDdZyhAS5nG9kODsd shqhj7teknczItd3xk16tSTyp3G5 hYE7L8VsbpH2OHAdnFOk QlulwYHTlM5zsvyka6vsnforJhKd UQGvAYt2RHh8FEMfyCiuJaOdQF22 YBE1VZAzayRzU2ElRTMj pNmzZhT2y4C7Zz8QB8AXCnkxU4SY TUFSWTwvdGQ+CZ16se19A0RoOlfe Ecu1NYJvRTP4rKN8nT4q HMDaVJtew5F0cFN9U1RxgaQmwt5a v6icQEYxPFqaI88poUCxy0C3WXIp iPD0ITEioNogCwJsvP29 Oyc+SPWpiDlfe3GzIdckx3bvm0nq vGz3XcsvDXPttlDtePvrTFM5j0Ii Jq9gJZMuwBB6aFE5pR6t PzSzItM9GQooK274KmIvgGZgIeoo V13iB4EjpQX+VFZpHay1WJGxePbo KC4iA3FvEQCzgepnmEVc lKziHO0bRKAmrvaqGLMjxH8nTMFs H1v7YmZyYuQ7YCxvX3OvNGZcbnaj Dx42hN1qShRfFuE5MJbq M2CkavM5YJNhrPNmAAfoZME8U39k s9G5WFCgFTYuWEE5gAQ3cD5lkXng bjogbGVmdDsgdmVydGlj MUkfLXtxQ395OATccUwhYlJeMJnp ZyBEYXRlOiAgMDYvMDYvMjAyNDwv dGQ+FPCrSKW6gIqqVMIi gYKrWKmiWe7wrEbefJyhBH0nPUZr pyvtAPAabK6jJILcdZXtsYywVF3e ULQkleoxa263RtKmQWN4 UWSsvXYsH2RbzK3fSoLmANTjHFHl D3FpcQAoHOqnU944YRbaGcW5EKXt yxKdD5KnGSPwwYazFoN6 j4S6Yj2Op1EvdupcJ3FdrSKdIuFc MezxODw3G7QrHpbdrOE+ES41FYRb IL28CDs4VKI4sPowHXdi GDOyM0HjzB9uUaOjJQEoUMPlNab+ PHRhYmxlIHdpZHRoPScxMDAlJyBz vVbsRP7gVi3cGZCgEXHu vRnacYItBcLhz0geAZSrFGskWH4c wUthP3TzpSZ2LQWya7t2Kb94O38m P6VqjOB+EYNcjKJ0nPU7 dV6jLbOeXeB8OOnuO137GzYnkJYj Edont2qhd0cqgKb1EcL2ODSkzqZt fXehZQB9w7BqPv29V00k SPtxKUSdXTXwLAHyOFVuiIjuoi7f sF1zKm6+GJHlkDD2tYN4lR1mFsKi FlW5SCghE219VgGnoITy Wofab5ocx2fzlFd0BgOoTWUwgoGu wZnrKUX0q3CvDl70S6LqaSydn9Nf Hcj7qv55zUObd5Z0dBF6 X8MaUSUdxddfwBZdiHvcNX7jTDRp ellpQPAjgA2ePRGqX2q7InOdFnI6 TDusG8DwjkL3ZYFgiHAu BZRcsPBGhB8bobrkk2fwjnyfGdWm QRHtTXv9NVp6TVZwtGvnQnFvZIJ1 AoG2EAC9kTUzdU6ijDtn yghhgB1sOym+SHV7lTZwdFOEAW2y OjwvdGQ+KTJfDEY2dDfuUXnlIXWr vU4qTQAtL4d4XwAqTgA4 QCvnZ2ZbpbE2EPNmkTVsVZPbwQGT oT2daifuj1nmrximGyClSANhJFs8 LPu2UBSaxMzdQcVbPQH4 EhT5YEC2sHGtvG5fsPzryqyqkR6v Oyc+TutrfSkdOPV3GHg5B1LmOkn1 UGXwwDisOR4xsCWaVXom Nt9dpMrewRnuMF7zKRHtqsbqa464 GsCuv8swOYInxUKiIDboVSY3G21i t9U9ONFzPFJpXPP4sAS3 pR2myEpawufxlWLwqGjfreBhjDht QKjmEEanN504XOWweQpzShWeFPl9 K1MiNkd6OKPmuGlhAK3q nRVbDCwgCx5uhGdkxAvcCM2vJVCw mmgdg039SrIfh3cbKKOhrWMyKTem YTB0E08up2O0POBmBUBy IDZ6aOM4rA0rzFknqeleqGLtoWld zaRvjSjcOQtsVPiqU671CMPurSrl LpAeiGt6H9ZrDml5BFQm tAatOZ8juYTmCUzfDd2afBetgFmc XN5uNRJvlxxpp531StOzt8xyECOd oWMjZEvhCCD7W76pk6J3 BQFjRXPlGAT1iCF8rG1vpRatwltq sUZxuJsrxrSbrOibIHwxMDkjI254 IHRvcDsnPlBhdGllbnQg DMtvJRo5X5LsGpnskDC+AO73JCDh JU21nWJyrOAod6vdyNo6FfUkZKMj REA0oPhwMLacn9HgEAIo Y01iwMNvg2A0SRWccXqigYZlIkOe aYP4wY0tEFffjsczi6kahqnmKbqd o9tujz58gG67Z36yWYmn FMLuGSJeXDMuOBMikPolmz4yiW3q Ii8+GMNzgKY5mOG0fW9jIKRsIpI6 MJpjW256WeDjqTCmYxle t3rkr1wiqFj9XwB1ZHGddyFioJka TFJ4a7PtVp09K96iSLiqNWNwVBSp SMYiEHWwrMulpa9hsX0d Ii8+JBYxlMR3zBD7tC1mKdErBiE9 ZWhwY434PgWhcAQyDggqI83aK0Ah dXA+DEYfHif4ASGdxTqu WW2hpYFrNMdwSt8dMEA7BeVdNbGm CGwcR7GiYIWwkksboobqaZH7FRLb NYEirP53Pi1baDftIDDb bUFWyS0gtbdmt1biiigyUzTqHQJo FHz7TZa6NSHstZvzPqLrWBO2NpL0 BZB1zCSywA4ndXtuotcz oH1nS0BdUNLdwqayKx62iG7eSeIu FbK4COiaYes+C7YZH6fKVULRGHqN FULUQv38P0LbQgg9YBFn sMyeNB0vnCEfWHzsSi8dqZwnzTgm WJ1aTILorphgSIJblQ6oCMWdvVEt aVljUG8pEPGzngmmd238 ZmQvTNE4EWRfiOOcK5JujS9bMeNd IDMbXEFzB1AdnNYrGLtcM163RHsm WvF9NELsrnXgS1TzKBJg mYyfGzW3z2I8Eg2jFT7lSK5zSOY1 NP39PG68xGVja6U6kEK6H5PsCXSb folbksxulYT8WUYeXHBm kL77tMUvLGesFj9kh1F6z512FLXq IMIhzC97Cs3sjXpwRRXthRCJiZ4g oapdq2lhuajzVnAnGKKk JKu6FPz6VBFeeCjjIvUoMIW8QmH6 EDS6cRBsnQ4suQxtoiykoO2vVkl+ QicaCQWmnwU8S9JuSoc0 SDZjbIxlOL9zyBHkOQxgGk9wtCod wOwiFW3kLRXfygqlZAZnbN6fLAEb fFWxuNofXE4jRLBonzjl q393NkBdAGE9ZKAxvJEzU1VtwT2z XsUjIGTfHHOqZ0FjsTDgCNbsT704 ZNueKhF2CWEiteDfQ5Ug TQMopZzhFzT4n9Z8St5GDN5YYOX8 V6MsJbp5WASlrGprBP3mvCKzKNco Vd1vyNbktPyiHZ2xBUKy bxbnOCLjdH9aPUUplDPhjSaqFH5a PDZmdbnkj602AkVrDUL0YRMyfJEe E0CrqO7gHmMwIZZkDAPu Q4RufVCcAFjuM255LQumCvR0PKFx vgMwT2AwPXZuqVueZfX4r8Z2Fv0Q UDwvdGQ+QM19ld88P9Qd SewlLdw8BCRtZTQ5wWM2bP4tOPFh ZCynu5G4sJH1W1RzulXyxv0ug0tz QYAjZXugT65flOXay1K4 LDLpsZW8HRNudQceRnLpcA82Ock+ XLRooUlgo4UiDajov4etl6pblBs8 IjMwJSIgdmFsaWduPSJ0 g9XbAy20B34sWUtlGMTmRSJxQUJt PZEjrAwzkj0vkJ6sQk9+PGNvbCB3 bFD1cS7yBxYlZpD4MTjl F092SkUgcUWsSizaw4tjq5ytfDy8 RmXwQGXvarJufEbjPAK4h5SrEd84 B9JbiKezx1OvAqk0cn59 kJQuu4P1gOH5A5CeGWTzrnouhNHr lMvlKZ8bTMGuqhmrCEMnrM0uBQEn D0s2FmJqWlY5MEmdA2Xm hjS2ASJquOXeBEOpeQFDoZ5qhfoo a7huwawiPzPeMPMrSDq7AVw3QRWu mFpmMlFdIBK1AnD3MZI8 iKLhmL8bhNakbpeymK3cCgo+UGh5 u0farLDkIO2znEX7BV02ZE59dZLq l5Z2wKR1J9XiYAQvrahl ajycwNC2TAYuGVNelN69Aj1nfMmq Uj3dEXPnIXF0PCBrbWTmU7OmmV3p XmQbYCXoXRPaR8UbsIBj NIuqR830MYnbBaT3XERottSsR2Pv CYNudUsiBaG6v0R8Sc6QRV76YY43 LI59tUCij5N9iZB2O0Gy TVHinfzfpyqabMP8FCKzWVAcgT33 Vi6brIvmJk9vXKHmIUE6CWBpaNJw Y0UwtC8qIgAfUIKvAEPt Q0WqsGWrNIfiW463PTbcMmV3LTVr dqFhU6YhOTMprKzuYpD2x3U0Tx9O Gb52HT35EG60bCNjy5H1 zLX7B5RsNVZkaqimzijjnLD2OHNo VYTjvO37Yw5grKksBd8gFGCfPYQ1 POJheIGaK1JauJ8zCjFc FCRpYHIcF0ImzYEwANlyV479SLun ZqF5WFPqqtNtF3FyQPLblCcfTtW5 r3C9Ht0IPKscghd4I7Xa PjwvdHI+XF09GIBeGL07oNKhfSOl d6abpDs5LdLfQOJsHNU2nVwqTBev z8ItPGToN81veFXuw8Z6 IGN (more content not included)... Normal [facility] Reminder Messageson 09-28-19 24 Reminder Messages - From: NICOLE PETERS DO To: [facility] [place] Clinical Pool ([facility]); Sent: 09/27/2023 14:04:18 EDT ! Show up: 09/27/2023 14:04:18 EDT Subject: Results Follow Up Actions: Call the patient with result(s) Due Date/Time: 09/28/2023 14:04:00 EDT Reminder Comments: looks good ...not gout Results: Date Result Name Value Ref Range 09/27/2023 11:20 Uric Acid 5.1 mg/dL (2.6 - 8.0) pt notified of results Normal [facility] Uric Acidon 09-27-2023 Urate [Mass/Vol] 5.1 mg/dL Normal 2.6-8.0 [facility] Comment on above: Performed By: #### 2 [id number] #### [facility] (DEFAULT) [address] [place] [address] Documentationon 08-25-2023 Documentation [id number] Ling Robertson 1955 F Date Provider Department Center 08/25/2023 Edy-CRISTÓBAL GARCIA [facility] Anthony Heal No family history on file [facility] Controlled Substances Agreem entson 06-29-2023 Controlled Substances Agreements [id number] [facility] Coding Summaryon 05-11-2023 Coding Summary HTMLBase 64 SmqqhlbxSYp7iDc+PGhlYWQ+PE1F EWNlE86jtXFecG0nC7QMQKlWAjol ZMDKMZoMFjWqurFjJG7daZNhZPPu IC8+LB0vHMGaVbuwdNBob6S1mAN2 W22txu5bGHopgDL0ZCDiXjVidhct l3shuTc8ZWtvJzdvEsPr TMWjhC04CXU7zS17Sf56dNIjoUSb b8gfrJi8SxMgJBOrQJT7tClyCTlm u0EfAMMwQ04huOHag9J1 KABkjZgxxWIePyTjhBF8qA6cOTew eubsi0itzetbDpa7ne34iBJgj1V3 iIZ3N4AkdmZ6WTShhYSh XjnpoZLPlL3xyvpyd7nbdfokOoTg XMTiXNq7HHq4WGIcdNezDvRqCM48 PZB2SCBgouJdE3IbMOJh sXxlWoO7h7P6Le8SG8ZDTghoE6JX TUFSWTwvdGQ+SL49if27Y3GhGtmb Zlk1HMIzBAF1qWD5gR5p XWXpIZekr7U6tHU6U6LyfiZybo1d j2hdDYGbOLiaX75dhVAjy4M2UQQx bTD7JZLwnAckRyWkkO58 Oyc+UITtsIiwk4NvOogid7nnv7wk tYj6QrutRLScomYugGztAFW4v0Tv Lb9gAUUgqWE2kIR0vM3r ZbHtRfW8PTcxJ990UwWdzHMbQbtw E42fV0OydQP+KPPfDhm3KKNzqNla BP6wM7AuRLVewshbzMYf bSpfIS1bCYBchbllGQPyvM5mKPAb B6u3FuEkCbV7OFydO3VsQRTscktk Ke38iO4vXbAwFdV2EMlo N4ExilV3YPRozELuCDaoCSS3I80l k2J0FJGcYDUwEPO9dQE7uZ8zjLdi bjogbGVmdDsgdmVydGlj YVqgVEynV203ALKmwGrpOeDjHDpi ZyBEYXRlOiAgMDEvMTYvMjAyNDwv dGQ+KYGuAJU4dNbmNUKi iWCrVOpbRd2nxNfbyDlzRD8nHCRz sjbmUPYmmM7rSXLvoVQunBslBW7s TFSxmkhjh110JjUnNZD4 TJLvhYEyF3VkwA4xUcEiOPFbGPZz A3MhvKAbNGexQ429EGmjKnV6ZNRv ccMnF8DrOEEyiLeaNwB3 w7O0Le6Tc6YkyaedV3FlsHDfCqYu LwepQKf0V5BzFaihjRO+AV04CVQn XD05NAr9FQB5lPkbZWtj UTFlC7QgmM4fOoIgEJSyQOVkUmq+ PHRhYmxlIHdpZHRoPScxMDAlJyBz rQzfOQ7rMf7wXHZtCNGg pLlsjCWnXkXmy9kaNLDjPFtwBZ2z sKbsD5FowHY8LDAwu6z2Sh78H00x C7SepIK+FZGyvXH1bXW5 tE9sJsXdEeB7WFgkB897OcOnrFAe Qrnfy8iev8yfxEa2KrI8HDZfxrUa vYntRKK1n1VoGk16I28t TQscBANiVGZuRCAxLEVzvHmavi1w xT7zEv8+UFJezRB5iVL2sQ5sPzSl VoF4VBljX329RtKeyNQx Fvyka9wxc7mlsNv5KmRiBJOgwwBj yDyvQKJ9p0QnVe15X0PhaLtxg8Xt Zgz0ur60yWQtw4E9gMX2 Q3NcIGGhvizbfEHbjFldBM2hKAGn yjrcCNDnxT9eLUMoV9d3KsCkXuW6 LVfpV2KvefX3DDOqkKNb MHMczYDLnQ7gedisp2vexbbfRjRo BILqGXl5OHj3WSLpqNmfAqJiZUH4 UfC4JRU8lCTgqT8ggTys hgukxC7hJid+MBZ1cPCziLLVEQ0j OjwvdGQ+HEZwDUK9uPizEScbQSHu iZ4gPKKuM3k2AdFgQuB6 XAprR7ThvsB4CEJslXIhXCPhgQAC kV2hwaebv0lgjpmgLqGiPLVhVYu1 FOd9TTHvlPywRwWwVYF4 UyD8BCF5wAEtpK3xwKzlugajnH8n Oyc+CkcucDchXBQ0FXr8E8DkTls6 SLVknOekYL5yqTGsQUiv Fl6qcSperZyaJD9vEEIbjavql538 EmKdf1piGGOayZTtYAirTYE6B89z s3W2FJLgNVFeURE2jCG7 dA6hnFeqaxeqrMVvqYxvdpImnOff VConPEscF803NYXewZsoDzLgMCl5 N7RoCij5BHKmoFqxKE7i tIWcWVepAl7bnNuxxWfvOR8jQULx exjbx838CdFah9mdAWKwaZJcBIqf YXY3E56bu7J9BABxFJMw LKG1pDE1hL9wlZrdwjvuuPQsdOxy gbIumWuhZCqtYZvgU395QQAjfCsu FdJosBp6W9AkKrf1REGk dOgfNQ4lpZKgNZiiSc8nsKpvrEvh RM2lXPTnopanb361QmSxs3loBISu jXWfQDufVJH8N27ai8E7 XKMxTHPkKLM2iHI5yY4yfLxoqprr pHTayBxkuqLugCahVRxxMZlyV950 IHRvcDsnPlBhdGllbnQg KZzcHIy1F9KpAczflMY+BD50ERGs LS56iOEtdUOwv5dvwQm5JhWxTQWv SLM7bSgoGHeiq8CxXKBx K75txPFjz3O9OJJafHwotMQsVtVy bXI5kF0bTUbesthcz1ccasdwLrjg v0uzny43gN24J60aXVez WXGhGKVgCDNtOIGywWgrxu7tdH8v Ii8+BXScqGZ0dEC1oP4kSCOcKrQ7 HDzfC042NlCthJYvTtzh m8bsb5kysBg3OyB1PIPafpNmyHxi BRH3n5QuUu56C25zGUptLPZpXFXn ZXClKKBofJqsql4poJ6e Ii8+HEImpGI5qEQ3tZ1iEvGxDvT9 BBfpZ419XoFaoAYiKlvvX54kZ8Sy dXA+DCBkWll6IAWvhHjr HG6yxOHaTRnsIj7zYBM3VgDtMlSi BCntJ7JnUBBnhsitjmicrZZ9PZUq PHOzsV51Ju2jzGziPUVb qIZPyQ0vgaziq5doqsamMkAcYMTe CPu5QOv4XLXsaPhoAiBoKTD8EfG6 DAJ2qBLqfD0wnKgnzksi xV9oK8EzZFLqnjylHk73yZ5jXaOp VmZ2CJcpGyq+A3XED0rRXHMIQYxB DNKKXr81G4NmCzi4SALf mQpcWG9svLGdEZehWb1irSbqjFsr RL9cPMOloyohUXSszO4oXEBntQQf dEouXU1uSCJzukmzb038 TfNdDHP0WZDpvLVtR4VhjA5vImCd ELAcVYGrV9EzsTKlENmjO526AOhu BtJ6VRJpxkPpB7PpCLKn vSabDpP4y5P4Kq5dKB7qBU4lOQU4 WW73UH44yFWpb9U9tMA2P8GcCVIg pnvqvthdcIH3HZXuKVZx qG40sKIvFNevEb5io4S2r971ZQSb OUOtvS37Wf7adYywPRKjaAMVoO8m rsyer9xgfelaChDzTSPp UIr2BZn5FKXrfHmgGbNtXMR5NsF5 KNJ5jIZerM7clAcibmdaqU2gSqq+ SjerFMCjdiX7X4SlFcp8 DMCkxUliYE0woVLmCJtxHm3nrYco vDunJM0nKAFqqgqwMMNvyD5aCLIi vOYwvVxrPQ1kOKVpbelw w169UzVjBIV2GWSyvWOlM9KjrV3o MkDtDMNbSWOlW9BjjRBaMEwjQ714 HXykWhP5AZRudjJwF5Gg LHGqmBamWxW3f1S5Jg0LSE4QGRQ9 P8EhHcb9XMBtaKvlJC6jkHKoBKfy En1llVcxeFjiQC4cFJEx rzzzSOZjiI3mFCYfoFMxjVpqHD0h KCFabsphe025OuIjUUS7JHMwyFHz M1HftU9nAjToIRLjNDWw U0HtjBTwUHouF687EEpbFuG9UXGn dbYjE7EfLEEopWmmYvO1c0G2Gq8X UDwvdGQ+VJ44hk36N3Eu VzyiIyz5AVBpDBB1vNA3eN4pNSUm GIcfc3J8lCR4M5TbvfJtoc8fs4ku VAWaXAxfH49iwJNmk0D4 OWJedLO1PZHmjBhsMoIfnR26Ycg+ RDWtlTmrm2YtOtnkb2frk1nomPp5 IjMwJSIgdmFsaWduPSJ0 e8WmSg67B13nAKoaUDFnEUIzQECs JFOkvMdase1vpB7lRh1+PGNvbCB3 yKZ8zV3rUtLtJyL6JMzl M374QmOvrSTyMnjbm8nyu3bybEi0 TyMnIQPrlfLqeHuhIGY6s5YvMd51 G0EzsZhzt0GbVas4zw63 iUHtb1V3qJM0D7FaVIQdmndvoSLw rUvvHA0mVOAektuiHVHfcJ9iYERl F9g9QmIvAlV6TWeuX6Ae zoD7WEVebGZlVMUziTZJtM6euxid o1ihlptzZvTdXIGiWMx2GQe9VTRg sCkzNyXfLOD2WvJ0MMY8 kWEnqD3edZwdcqustY0jHke+UGh5 u9jdiIOwZB8deBS5AR15HD78nUFx w9W7bOH5O6RpWYRiaqvr naghrVS9GQThQTTpnE32Oh9boRyh Vh4xQCScGJR3DSTqoUVrX1IdkO4k BcEmSUWgWCUuL2LisSIp FTuqW360IUpqCvU9NTIufjEpI1Ad PVUmeUgbMfR0l7Y6Xh6CDF23GM25 OG57cCEgi3Z4jSF5K3Uq GPFmulhtyilfsRF7USHuAUHslE01 Ac4xfHhsQg6sJHNlYQH9MCLrkRWq S4LaoV7hNaGbBUQaKDRt X1WxwEAaDGnaW990MGrpGgB5RHOy nqQrL1EuYZFoxXnbMcK3e1Z8Hx5V Bn75ZS91NE21zKLbh5Q1 dCY4T2TtLWEirkzsehhttDP3JBWm IUSxcV47Cv9ehVlsFh1rKMDsRUV0 RKDtbMLjL8NkbM1vHhQe JBPeASUxA0IiaGYyPUpkX586LUqr UnC7IFUsyvTgU2VeTRLrvEybZiE8 u4F3Pz2XRNehjxe5Q4Yv PjwvdHI+GO97YRUoLY37tFVydUGi h1ffiQn3ZcSgVWSwFVI6hWxxAAxp d3IvALPtB47zsSRgv6Z9 IGN (more content not included)... Normal [facility] MR head/brain wo/w conon MR head/brain wo/w con [facility] [place] [address] MRI Report Signed Patient: Flaquita Robertson MR#: [id number] 47 : 1955 Acct:[id number] Age/Sex: 67 / F ADM Date: 03/30/23 Loc: Room: Type: [facility] Attending Dr: Ashu Goff OD Copies to: Ashu Goff OD Ordering Provider: Ashu Goff OD Date of Service: 03/30/23 MR/MR head/brain wo/w con: H57.11 ([id number]) MR/MR orbit wo/w con: H57.11 MR orbit [...] cortical atrophy is redemonstrated. Impression dictated by: Diza Quintero M.D.03/31/2023 9:24 AM Dictation Location: [place] [address] Transcribed By: [facility] 03/31/23923 Dictated By: Diaz Quintero II, MD 03/31/23903 Signed By: 03/31/23923 Normal [facility] Creatinine (Bld) [Mass/Vol]O rdered By: Ashu Goff on 03-30-2023 Creatinine [Mass/Vol] 0.7 mg/dL 0.6-1.3 [facility] Comment on above: ER/ESD physician is notified/shown all ISTAT results.Critical values may be confirmed by laboratory testing ifdeemed necessary by ER attending doctor. ISTAT XRay CREon 03-30-2023 Creatinine [Mass/Vol] 0.7 mg/dL Normal 0.6-1.3 [facility] Comment on above: Result Comment: ER/E SD physician is notified/shown all ISTAT results. Critical values may be confirmed by laboratory testing if deemed necessary by ER attending doctor. Performed By: #### I SCRE #### [address] ISTAT GFR > 60.0 Normal [facility] Comment on above: Result Comment: PERF ORMED BY: [place] [address] PATHOLOGIST PIANO ACCOMPANIST SONNY CORDERO M.D. Performed By: #### I SCRE #### [address] No Panel InformationOrdered By: Ashu Goff on 03-30-2023 Bedside Estimated GFR (eGFR) > 60.0 [facility] Infusion Flowsheeton 023 Infusion Flowsheet 130/79 [facility] [address] DO Work Phone: [phone] Infusion Flowsheet 82 1 [facility] [place] [address] DO Work Phone: [phone] Infusion Flowsheet 16 1 [facility] Work Phone: [phone] Infusion Flowsheet 96.8 1 [facility] Infusion [place] [address] DO Work Phone: [phone] Infusion Flowsheet 95 1 [facility]-Amb ulato ry Infusion [facility] 1599 DO Work Phone: [phone] Infusion Flowsheet 300 MG VYEPTI MG- Ambulato ry Infusion [facility] 1599 DO Work Phone: [phone] Infusion Flowsheet NORMAL SALINE 125 ML [facility] Infusion [facility] 1599 DO Work Phone: [phone] Infusion Flowsheet ZERO MEDICATION WASTED [facility]fusion [place] [address] DO Work Phone: [phone] Infusion Flowsheet INFUSION COMPLETE. L INE FLUSHED WITH 30 ML NORMAL SALINE [facility]-Amb[facility]ato [facility] Infusion [facility] 1599 DO Work Phone: Infusion Flowsheet LM [facility] Infusion [place] [address] DO Work Phone: [phone] Infusion Flowsheet VYEPTI 300 MG [facility]- Ambulato [facility] Infusion [facility] 1599 DO Work Phone: Infusion Flowsheet NORMAL SALINE 100 ML [facility]fusion [place] [address] DO Work Phone: [phone] Infusion Flowsheet Infusion Started [facility] Infusion [place] [address] DO Work Phone: Infusion Flowsheet 200 ML//HR MG-Amb ulato Infusion [facility] 1600 DO Work Phone: Infusion Flowsheet PT WITHOUT SIGNS OR SYMPTOMS OF REACTION [facility] Infusion [facility] 1600 DO Work Phone: Infusion Flowsheet LM MG-Amb ulato [facility] 1600 DO Work Phone: Nurse Visit (Infusion-Inject ion Services)on 10-28-2022 Nurse Visit (Infusion-Injection Services) Orders-Resource Coordinator Medications Administered: Vyepti 100 MG/ML Intravenous Solution Rx By: Zoie Tejeda;For: Migraines; Dose of 300 MG; Intravenous; ROCHELLE = N; Administered by: Bibiana Bower R.N.: 10/28/2022 11:15:00 AM; Last Updated By: Bibiana Bower; 10/28/2022 11:29:40 AM MEDICATION SUPPLIED FROM [facility] Reason For Visit PT HERE FOR 300 MG VYEPTI INFUSION THIS IS A DOSE INCREASE FOR PT Ordered by ZOIE TEJEDA CNP. FLAQUITA ROBERTSON accompanied by: SELF. Patient is [...] TABLET DAILY NEEDED. Vitals Vital Signs Recorded: 12Uvd3964 11:00AM Lqiuptrcrzg93.8 F Heart Rate86 Ocammwytusd85 Wclhvoda761, LUE, Sitting Zdgxqtpyt05, LUE, Sitting O2 Zsjrzvhpcm34, RA Pre-Procedure Checklist Pre-Procedure Checklist Allergies were [...] infusion. Infusion Procedure PT PROVIDED WITH WRITTEN ([employer] PT EDUCATION SHEET) AND VERBAL EDUCATION REGARDING MEDICATION GIVEN. VERIFIED MEDICATION NAME WITH PATIENT AND DISCUSSED REASON FOR USE. BRIEFLY DISCUSSED HOW MEDICATION WORKS AND EDUCATED ON GOAL OF TREATMENT, FREQUENCY OF TREATMENT, ADVERSE RXN'S AND COMMON SIDE EFFECTS TO MONITOR FOR. INSTRUCTED PT TO ASSURE THAT ALL PROVIDERS INCLUDING DENTIS (more content not included)... Normal [facility] Office Visit (CMT - Chiropra ctic Manipulative [...] back pain. She does workout with a parent trainer twice a week and tries to [...] in February 2021. Is under care with [facility] recovery clinic. Had extensive imaging and testing including advanced imaging with MRI and CT scan of the head and neck as well as testing to rule out CSF leak and has visited several providers including ian graff (more content not included)... Normal [employer] Office Visit ([facility])on 10-22-2022 Follow-up visit Diagnoses/Problems Assessed Other low [...] been seen by a [facility] specialist [facility], who diagnosed her with occipital neuralgia; she stated that she did 5 weeks of PT, and then plateaued ; the PT also attempted dry needling , which she found ineffective; she stated that she will be getting a second opinion with neurology next week; patient also visited a chiropractor in [place] who is a cervical specialist ; she [...] back pain. She does workout with a parent trainer twice a week and tries to [...] in February 2021. Is under care with [facility] recovery clinic. Had extensive imaging and testing including advanced imaging with MRI and CT scan of the head and neck as well as testing to rule out CSF leak and has visited s (more content not included)... Normal [facility] Office Visit ([facility])on 09-17-2022 Follow-up visit Diagnoses/Problems Assessed Other low [...] been seen by a headache specialist at [facility], who diagnosed her with occipital neuralgia; she stated that she did 5 weeks of PT, and then plateaued ; the PT also attempted dry needling , which she found ineffective; she stated that she will be getting a second opinion with neurology next week; patient also visited a chiropractor in [place] who is a cervical specialist ; she [...] Segmental an (more content not included)... Normal [facility] [employer] Office Visit (CMT - Chiropra ctic Manipulative [...] Visit: This is a Follow-Up. Neck and GRYE pain, R sacral pain. History of Present [...] back pain. She does workout with a parent trainer twice a week and tries to [...] some treatmen (more content not included)... Normal [employer] Office Visit ([facility])on 09-01-2022 Follow-up visit Diagnoses/Problems Assessed Other low [...] been seen by a headache specialist at [facility], who diagnosed her with occipital neuralgia; she stated that she did 5 weeks of PT, and then plateaued ; the PT also attempted dry needling , which she found ineffective; she stated that she will be getting a second opinion with neurology next week; patient also visited a chiropractor in [place] who is a cervical specialist ; she [...] (V11.8) (Z86.59) (more content not included)... Normal [facility] Infusion Flowshe[place] 023 Infusion Flowsheet 15 MIN POST INFUSION WAIT TIME COMPLETED. PT WITHOUT ILL S/S. [facility] Infusion [place] [address] DO Work Phone: Infusion Flowsheet CQ [facility] Infusion [place] [address] DO Work Phone: [phone] Infusion Flowsheet 113/74 [facility] Infusion [place] [address] DO Work Phone: Infusion Flowsheet 70 1 [facility] Infusion [place] [address] DO Work Phone: Infusion Flowsheet 16 1 [facility] Infusion [place] [address] DO Work Phone: [phone] Infusion Flowsheet 98.2 1 [facility] Infusion [place] [address] DO Work Phone: [phone] Infusion Flowsheet 100 1 [facility]fusion [place] [address] DO Work Phone: Infusion Flowsheet VYEPTI 100 MG [facility]- [facility] Infusion [place] [address] DO Work Phone: [phone] Infusion Flowsheet NS 100 ML [facility] Infusion [place] [address] DO Work Phone: [phone] Infusion Flowsheet Infusion Stopped [facility]fusion [place] [address] DO Work Phone: [phone] Infusion Flowsheet ZERO [facility] Infusion [place] [address] DO Work Phone: [phone] Infusion Flowsheet DENIES ILL S/SX. NS 30 ML FLUSH GIVEN. 15 MIN POST INFUSION WAIT TIME BEGINGS. [facility]fusion [place] [address] DO Work Phone: Infusion Flowsheet VYEPTI 100 MG [facility] 1600 DO Work Phone: Infusion Flowsheet NS 100 ML [facility] 1600 DO Work Phone: Infusion Flowsheet Infusion Started [facility]-Ambulato [facility] Infusion [facility] 1600 DO Work Phone: Infusion Flowsheet 200 ML/HR MG-Amb ulato ry Infusion [facility] 1600 DO Work Phone: Infusion Flowsheet DENIES ILL S/S. MIGR YAHAIRA . [facility] [place] [address] DO Work Phone: Nurse Visit (Infusion-Inject ion Services)on 07-29-2022 Nurse Visit (Infusion-Injection Services) Orders-Resource Coordinator Medications Administered: Vyepti 100 MG/ML Intravenous Solution Rx By: Zoie Tejeda;For: Migraines; Dose of 100 MG; Intravenous; ROCHELLE = N; Administered by: Rebecca HarringtonN.: 07/29/2022 11:15:00 AM MED SUPPLIED BY [facility]. Reason For Visit PT HERE FOR [...] TABLET DAILY NEEDED. Vitals Vital Signs Recorded: 24Ynp4603 11:00AM Jevxhrbxulf27.9 F Heart Rate79 Trdebpakmlu23 Gtttbdru891 Ckgwnpryf88 Vznhzx446 lb 11.79 oz BMI Vmjqxlojhm54.54 kg/m2 BSA Calculated1.75 O2 Vyrfpoyfsh83, RA Pre-Procedure Checklist Pre-Procedure Checklist Allergies were [...] complaint. Infusion Procedure PT PROVIDED WITH WRITTEN ([employer] PT EDUCATION SHEET) AND VERBAL EDUCATION REGARDING [...] IV s (more content not included)... Normal [facility] Office Visit ([facility] - Chiropra ctic Manipulative Treatment)on 07-29-2022 Follow-up [...] stiff, sharp and deep. Pre-Treatment Pain Level: 6/10. Flaquita presents today for the follow-up chiropractic [...] back pain. She does workout with a parent trainer twice a week and tries to [...] Also unde (more content not included)... Normal [employer] Office Visit ([facility])on 07-29-2022 Follow-up visit Diagnoses/Problems Assessed Migraines (346.90) [...] been seen by a headache specialist at [facility], who diagnosed her with occipital neuralgia; she stated that she did 5 weeks of PT, and then plateaued ; the PT also attempted dry needling , which she found ineffective; she stated that she will be getting a second opinion with neurology next week; patient also visited a chiropractor in [place] who is a cervical specialist ; she [...] heart failure (more content not included)... Normal [employer] Office Visit (CMT - Chiropra ctic Manipulative [...] I discussed the risks and benefits of medical care evaluation specialist. Based on the patient's subjective complaints [...] in February 2021. Is under care with [facility] recovery clinic. Had extensive imaging and testing [...] (780.79) (R53.83 (more content not included)... [facility])on 07-15-2022 Follow-up visit Diagnoses/Problems Assessed Migraines (346.90) [...] lingering COVID-19 symptoms; she was referred by Flwoer Nguyễn CNP, from the COVID recovery clinic; [...] been seen by a headache specialist at [facility], who diagnosed her with occipital neuralgia; she stated that she did 5 weeks of PT, and then plateaued ; the PT also attempted dry needling , which she found ineffective; she stated that she will be getting a second opinion with neurology next week; patient also visited a chiropractor in [place] who is a cervical specialist ; she [...] (Z78.9) Ma (more content not included)... Normal [facility] Office Visit ([facility])on 06-10-2022 Follow-up visit Diagnoses/Problems Assessed Migraines (346.90) [...] been seen by a headache specialist at [facility], who diagnosed her with occipital neuralgia; she stated that she did 5 weeks of PT, and then plateaued ; the PT also attempted dry needling , which she found ineffective; she stated that she will be getting a second opinion with neurology next week; patient also visited a chiropractor in [place] who is a cervical specialist ; she [...] Key; 10/07/19 (more content not included)... 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) Migraines (346.90) (G43.909) Vitamin D deficiency (268.9) (E55.9) Low libido (799.81) (R68.82) Post-menopausal (V49.81) (Z78.0) *Orders Cognitive changes, Health Maintenance, Fatigue Complete Blood Count + Differential; Status:Active; Requested for:95Sgx2340; Comprehensive Metabolic Panel; Status:Active; Requested for:04Vda7634; Folate, Serum; Status:Active; Requested for:96Iis6139; Insulin, Fasting; Status:Active; Requested for:01Bxq4907; TSH WITH REFLEX TO FREE T4 IF ABNORMAL; Status:Active; Requested for:14Kxk9107; Vitamin B12, Serum; Status:Active; Requested for:05Plx3354; Low libido, Post-menopausal Sexual Medicine Referral Evaluation and Treatment Evaluate AND Treat Status: Hold For - Scheduling Requested for: 40Xkt6970 Vitamin D deficiency Vitamin D 25-Hydroxy; Status:Active; Requested for:96Llx4071; Migraines (346.90) (G43.909) Post-acute sequelae of COVID-19 [...] presents for follow up History of Present Svbrwbd81 y/o female with PMH anxiety, depression, migraines, insomnia, PASC presents for follow up. Referred by covid clinic, Erlin Nguyễn. 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 Lives with . [...] no major impact on fatigue - Sees household personal assistant- started pilates, TRX- twice weekly - Recognizes [...] swelling to (more content not included)... Normal [employer] Office Visit (Neuro-General) on 06-03-2022 Follow-up visit [...] issues patient had to pay over $800 qqi-qh-wjwmjl for a 1 month prescription of the [...] NEEDED. Signatures Electronically signed by : Zoie Tejeda APRN-TAMMI; Jun 03 2022 10:39AM EST (Author) Normal [employer] Office Visit (CMT - Chiropra ctic Manipulative [...] I discussed the risks and benefits of medical care evaluation specialist. Based on the patient's subjective complaints [...] in February 2021. Is under care with [facility] recovery clinic. Had extensive imaging and testing [...] of depression (more content not included)... [facility] [employer] Office Visit ([facility])on 05-25-2022 Follow-up visit Diagnoses/Problems Assessed Post-acute sequelae [...] struggling Patient has been working with a parent trainer; she was using the PilOncovision reformer which exacerbated her vertigo, and they [...] been seen by a [facility] specialist [facility], who diagnosed her with occipital neuralgia; she stated that she did 5 weeks of PT, and then plateaued ; the PT also attempted dry needling , which she found ineffective; she stated that she will be getting a second opinion with neurology next week; patient also visited a chiropractor in [place] who is a cervical specialist ; she [...] 1 TABLET (more content not included)... [facility] Office Visit (Sleep Medicine )on 05-11-2022 Follow-up [...] DME : Please enroll patient's name in [employer] or [employer] if applicable. Performing Instructions to DME Supplier [...] out of 7 nights per week. Call [facility] [place] [phone] for any questions or concerns. As a [...] or mask interface, please FIRST contact your [employer]. [employer] can be reached at [phone]. For questions concerning your SLEEP CLINIC appointment: Call [phone] . SLEEP LAB [phone] or [phone]. CAUTIONS for New [employer] users: 1. You [...] Sites: For patients with ALL SLEEP DISORDERS: [employer] http://sleepeducation.org; or National Sleep Foundation: https://sleepfoundation.org For (more content not included)... [facility] [employer] Tobacco Screening.on Fall risk assessment a) No falls within the last year [facility] [address] Work Phone: Tobacco use status [facility] b) No [facility] [address] Work Phone: Office Visit ([facility])on 05-04-2022 Follow-up visit Diagnoses/Problems Assessed Fatigue (780.79) [...] been seen by a headache specialist [facility], who diagnosed her with occipital neuralgia; she stated that she did 5 weeks of PT, and then plateaued ; the PT also attempted dry needling , which she found ineffective; she stated that she will be getting a second opinion with neurology next week; patient also visited a chiropractor in [place] who is a cervical specialist ; she [...] Oral TabletTAKE (more content not included)... [facility] Progress Noteon 3 PT Progress Note No report was sent [facility] Progress Note Therapy Diagnosis Assessed Vertigo [...] progression. They are being discharged to their [facility]. Response to treatment: decreased pain, improved joint [...] code time is 40 minutes. Therapeutic exercise (19060): timed minutes 30, units 2 . UBE [...] added Lemperts maneuver to HEP. Manual Therapy (41815): timed minutes 10, units 1 . STM to rigjht Scalenes, Levator, UT suboccipital releases with gentle traction includes vestibular testing . 'Scores and Scales' Signatures Electronically signed by : Manish Kramer PT; May 04 2022 12:25PM EST (Author) [employer] Office Visit ([facility])on 04-13-2022 Follow-up visit Diagnoses/Problems Assessed Personal history [...] pain while she was on vacation in [place]; returning to [place], she is feeling a slight increase in [...] been seen by a headache specialist at [facility], who diagnosed her with occipital neuralgia; she stated that she did 5 weeks of PT, and then plateaued ; the PT also attempted dry needling , which she found ineffective; she stated that she will be getting a second opinion with neurology next week; patient also visited a chiropractor in [place] who is a cervical specialist ; she [...] History of Migraines. Objective Ortho positive Hallpike [place] for right ear horizontal BPPV. added Lemperts maneuver to HEP. Treatment Time in clinic started at 8:30 am Time in clinic ended at 9:15 am Total time in clinic is 45 minutes. Total timed code time is 40 minutes. Therapeutic exercise (90925): timed minutes 25, units 2 . UBE [...] added Lemperts maneuver to HEP. Manual Therapy (38333): timed minutes 15, units 1 . 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 Inocencio Rosado, Neurologist Dr. Wilmer Carrillo and TAMMI Tejeda and Dr. Villalta at [facility], Psychiatry Dr. Tejeda, 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 recommended probiotic, mindfulness, bety chi, pacing, sleep [...] mild MYRIAM with O2 everette 82.3% -10/2021 personnel monitor normal Blood work: -06/2021 spinal tap [...] cell carcinoma 2020 Scores and Scales MOCA [id number] 12:46PM IF NO, USE SLUMS EXAM Visuospatial/ Executive (5) Naming (3) I have been Certified to use this cognitive screening instrument, via training on [email or web address].org.Yes Memory (0)0 Attention: Read List of Digits (2)2 Attention: Read List of Letters (1)1 Attention: Serial Sevens (3)3 Language: Repeat (2)1 Language: Fluency (1)0 Abstraction (2)2 Delayed Recall (5)4 Orientation (6)6 Total Score (30)19 Comments:Modified [place] Active Problems Problems Body aches (780.96) (R52) Cognitive changes (799.59) (R41.89) Fatigue (780.79) (R53.83) Light headed (780.4) (R42) MYRIAM (obstructive sleep apnea) (327.23) (G47.33) Personal history of COVID-19 (V12.09) (Z86.16) Post-acute sequelae of (more content not included)... [facility] [employer] PT [...] History of Migraines. Objective Ortho positive Hallpike [place] for right ear BPPV Patient 20 mins late for session today. Treatment Time in clinic started at 9:25 am Time in clinic ended at 10:00 am Total time in clinic is 25 minutes. Total timed code time is 25 minutes. Manual Therapy (01463): timed minutes 25, units 2 . Adelaide's maneuver x 2 for right posterior canal BPPV. 'Scores and Scales' Signatures Electronically signed by : Manish Kramer PT; Apr 06 2022 12:34PM EST (Author) Normal [employer] Tobacco Screening.on 022 Fall risk assessment a) No falls within the last year [facility] [place] Work Phone: Tobacco use status [facility] b) No [facility] [place] Work Phone: Office Visit ([facility])on 03-11-2022 Follow-up visit Diagnoses/Problems Assessed Migraines (346.90) [...] been seen by a headache specialist at [facility], who diagnosed her with occipital neuralgia; she stated that she did 5 weeks of PT, and then plateaued ; the PT also attempted dry needling , which she found ineffective; she stated that she will be getting a second opinion with neurology next week; patient also visited a chiropractor in [place] who is a cervical specialist ; she [...] UT, Levator, SCM, Suboccipitals, Scalenes. Negative Hallpike [place] for left posterior BPPV. Issued HEP: 3 way pec stretches in the doorway, mid-rows, pull-downs, and shoulder reactive IR and ER isometrics. Treatment Time in clinic started at 8:30 am Time in clinic ended at 9:15 am Total time in clinic is 45 minutes. Total timed code time is 40 minutes. Therapeutic exercise (10551): timed minutes 25, units 2 . Pulleys: [address] pec stretches in door 2 x 30 sec each Midrows: PTT 12 x pulldowns: PTT 12 x Shlds ER / IR resistive Iso: PTT 10 x each each arm R UT stretches: 3 x 30 sec R Levator stretches: 3 x 30 sec. Manual Therapy (61259): timed minutes 15, units 1 . C1 thru C4 FRSR. corrections with METs STM right UT, Levator, SCM, Suboccipitals, Scalenes. 'Scores and Scales' Signatures Electronically signed by : Manish Kramer PT; Mar 11 2022 9:34AM EST (Author) [employer] Office Visit ([facility])on 03-04-2022 Follow-up visit Diagnoses/Problems Assessed Migraines (346.90) [...] been seen by a headache specialist at [facility], who diagnosed her with occipital neuralgia; she stated that she did 5 weeks of PT, and then plateaued ; the PT also attempted dry needling , which she found ineffective; she stated that she will be getting a second opinion with neurology next week; patient also visited a chiropractor in [place] who is a cervical specialist ; she [...] Tablet daily (more content not included)... [facility] [...] code time is 30 minutes. Manual Therapy (99924): timed minutes 30, units 2 . Adelaide's maneuver 2 trials for left BPPV. O/A FSL, C1 thru C4 FRSR. corrections with METs STM right UT, Levator, SCM, Suboccipitals, Scalenes. 'Scores and Scales' Signatures Electronically signed by : Manish Kramer PT; Mar 04 2022 9:50AM EST (Author) [facility] Psych[facility] Adult Diagnoses/Problems Assessed [...] 03, 2022 at 11am virtual with this leader writer - May follow up sooner if experiences worsening symptoms by calling Psychiatry at - Patient verbalized an understanding to call Mobile Crisis at ([facility]), 211, or 911/go to the nearest emergency [...] some weight. She is meeting with a parent trainer once a week and this week [...] the same (more content not included)... [employer] PT Progress Noteon PT Progress Note No report was sent [employer] Office Visit ([facility])on 02-17-2022 Follow-up visit Diagnoses/Problems Assessed Migraines (346.90) [...] tomorrow on vacation for 1 week in [place] Initial intake (10/08/2021) Pt came in today [...] been seen by a headache specialist at [facility], who diagnosed her with occipital neuralgia; she stated that she did 5 weeks of PT, and then plateaued ; the PT also attempted dry needling , which she found ineffective; she stated that she will be getting a second opinion with neurology next week; patient also visited a chiropractor in [place] who is a cervical specialist ; she [...] entrance screeni (more content not included)... [employer] Office Visit ([facility])on 02-09-2022 Follow-up visit Diagnoses/Problems Assessed Migraines (346.90) [...] been seen by a headache specialist at [facility], who diagnosed her with occipital neuralgia; she stated that she did 5 weeks of PT, and then plateaued ; the PT also attempted dry needling , which she found ineffective; she stated that she will be getting a second opinion with neurology next week; patient also visited a chiropractor in [place] who is a cervical specialist ; she [...] screening in (more content not included)... [employer] PT Initial Evaluationon 01-24 PT Initial Evaluation [...] diagnosed with COVID. Referred by: Flower Nguyễn, UNIT RECEPTIONIST Adult Risk Screening Initial Fall Risk Screening: [...] dizziness and headaches. . Work Status: occupation: [employer]. Current Status: unchanged. Patient Awareness: Patient is aware of her diagnosis and prognosis. Living Environment: multi-story home and stairs with rails. Social Support: lives with spouse. Objective Ortho Forward bend test: veer to right Hallpike-Luis Miguel Down right: upward rotational nystagmus Hallpike-Luis Miguel Down left: negative Hallpike-Brownville Up right: horizontal nystagmus to right Hallpike-Luis [...] left, Nodding (more content not included)... [employer] Office Visit ([facility])on 02-05-2022 Follow-up visit Diagnoses/Problems Assessed Migraines (346.90) [...] been seen by a headache specialist at [facility], who diagnosed her with occipital neuralgia; she stated that she did 5 weeks of PT, and then plateaued ; the PT also attempted dry needling , which she found ineffective; she stated that she will be getting a second opinion with neurology next week; patient also visited a chiropractor in [place] who is a cervical specialist ; she [...] Capsule Extende (more content not included)... [employer] Chart Updateon 01-27-2022 Chart Update Diagnoses/Problems Vertigo [...] Jan 27 2022 6:04AM EST (Author) [employer] Office Visit ([facility])on 01-27-2022 Follow-up visit Diagnoses/Problems Assessed Migraines (346.90) [...] been seen by a headache specialist at [facility], who diagnosed her with occipital neuralgia; she stated that she did 5 weeks of PT, and then plateaued ; the PT also attempted dry needling , which she found ineffective; she stated that she will be getting a second opinion with neurology next week; patient also visited a chiropractor in [place] who is a cervical specialist ; she [...] content not included)... [facility] [employer] Office Visit ([facility])on 01-20-2022 Follow-up visit Diagnoses/Problems Assessed Migraines (346.90) [...] been seen by a headache specialist at [facility], who diagnosed her with occipital neuralgia; she stated that she did 5 weeks of PT, and then plateaued ; the PT also attempted dry needling , which she found ineffective; she stated that she will be getting a second opinion with neurology next week; patient also visited a chiropractor in [place] who is a cervical specialist ; she [...] R GB4 (more content not included)... [employer] Office Visit (Sleep Medicine )on 01-12-2022 Follow-up visit Diagnoses/Problems Assessed MYRIAM (obstructive sleep apnea) (327.23) (G47.33) Orders MYRIAM (obstructive sleep apnea) Positive Airway Pressure (PAP) Therapy; Status:Active; Requested for:[id number]; Perform:(Preferred) [employer]; Due:[id number];Ordered; For:MYRIAM (obstructive sleep apnea); Ordered By:Daniel Jimenez; Staff Performing Instructions (new machine setup only) : Please fax patient's demographics, current insurance information, recent testing (home sleep apnea test, in-lab sleep study, or oximetry test), and signed clinic note summary along with this order to the corresponding DME company. Additional Instructions to DME : Please enroll patient's name in [employer] or [employer] if applicable. 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 Call [facility] [phone] for any questions or concerns. As a [...] or mask interface, please FIRST contact your [employer] company. [employer] can be reached at [phone]. For questions concerning your SLEEP CLINIC appointment: Call [phone] . SLEEP LAB [phone] or [phone]. CAUTIONS for New PAP users: 1. You should know the [facility] compliance criteria if you have Medicare [...] Sites: For patients with ALL SLEEP DISORDERS: [employer] Medicin (more content not included)... [employer] Tobacco Screening.on 022 Fall risk assessment a) No falls within the last year [facility] Work Phone: Tobacco use status CP b) No [facility] Work Phone: Office Visit (Neuro-General) on [...] Dec 17 2021 9:43AM EST (Author) [employer] Office Visit ([facility])on 12-16-2021 Follow-up visit Diagnoses/Problems Assessed Migraines (346.90) [...] been seen by a headache specialist at [facility], who diagnosed her with occipital neuralgia; she stated that she did 5 weeks of PT, and then plateaued ; the PT also attempted dry needling , which she found ineffective; she stated that she will be getting a second opinion with neurology next week; patient also visited a chiropractor in [place] who is a cervical specialist ; she [...] to follow closely with neurology, Psychiatry, Psychology, [facility], Sleep Medicine, and their recommendations -consider [...] Fatigue and Thinking Changes after COVID-19 here: [email or web address] We will call you with the results of your tests. Further recommendations will follow based on testing results and your symptoms. Please return to COVID Recovery Clinic in 3-6 months, call [phone] if needed. Please also consider attending PICS support group for long-COVID and post-ICU patients. To contact support group, email [email or web address] or call [phone] Chief Complaint FUV: Symptoms are improving , [...] and TAMMI Tejeda and Dr. Villalta at [facility], Francisca Taylor, TAMMI, Psychiatry Dr. Tejeda, [facility] PRAVIN Young, Psychology Cristóbal Garcia Survey scores: [...] recommended cognitive behavioral therapy Found someone in [place] and loves her, doing EMDR which has [...] dissipated Rel (more content not included)... [employer] Office Visit ([facility])on 11-18-2021 Follow-up visit Diagnoses/Problems Assessed Migraines (346.90) [...] been seen by a headache specialist at [facility], who diagnosed her with occipital neuralgia; she stated that she did 5 weeks of PT, and then plateaued ; the PT also attempted dry needling , which she found ineffective; she stated that she will be getting a second opinion with neurology next week; patient also visited a chiropractor in [place] who is a cervical specialist ; she [...] GB41, L SJ5 TDP lamp: feet, 20min [place] in: 15 Needle (more content not included)... [facility] MOCA ([place] Cognitive Ass essment)on 10-06-2021 MOCA ([place] Cognitive Assessment) Yes COVID [facility] [address] [place] Work Phone: [phone] MOCA ([place] Cognitive Assessment) 19 1 COVID [facility] [address] [place] Work Phone: [phone] MOCA ([place] Cognitive Assessment) 6 1 COVID Recovery [facility] [address] [place] Work Phone: [phone] MOCA ([place] Cognitive Assessment) 0 1 [facility] [address] [place] Work Phone: MOCA ([place] Cognitive Assessment) 1 1 [facility] [address] [place] Work Phone: MOCA ([place] Cognitive Assessment) 4 1 COVID Recovery [facility] [address] [place] Work Phone: MOCA ([place] Cognitive Assessment) Modified [place] COVID Recovery [facility] [address] [place] Work Phone: [phone] MOCA ([place] Cognitive Assessment) 3 1 COVID Recovery [facility] [address] [place] Work Phone: [phone] MOCA ([place] Cognitive Assessment) 2 1 COVID [facility] [address] [place] Work Phone: CNOVon 08-06-2021 CNOV Office Visit ([facility] ) FLAQUITA ROBERTSON ([id number]) 1955 F Date Time Provider Department 08/06/21 9:30 AM NANCY VILLALTA [facility] During your visit today, we recorded the following information about you: Pulse Blood pressure Weight Height 91/minute 143/83 74.8 kg 1.524 m Nancy VillaltaDO 08/06/2021 10:46 AM Addendum Headache [facility] Facial [facility] [place] [address] [address] Referring: SELF PCP: Benito Diaz MD Neurology [...] evidence o (more content not included)... [facility] (NIQ) FLAQUITA ROBERTSON ([id number]) 1955 F Date Time Provider Department 07/24/21 NEUROLOGY PROVIDER NI During your visit today, we recorded the following information about you: Joy Kearney 07/24/2021 4:37 PM Signed Received reports from CT myelogram of complete spine. Uploaded to chart in Scanned Docs. Allergies As of Date: 07/24/2021 (Not on File) Date Reviewed: Never Reviewed Reason for Visit: Received Outside Medical Records [[id number]] Cmt: Imaging reports Problem List As Of Date: 07/24/2021 (None) Encounter Status:Closed by JOY KEARNEY on 07/24/21 [facility] Tele[facility] (NIQ) FLAQUITA ROBERTSON ([id number]) 1955 F Date Time Provider Department 07/15/21 NEUROLOGY PROVIDER NINely During your visit today, we recorded the following information about you: Joy Kane 07/15/2021 4:05 PM Signed OSH NI referral from Dr. Wilmer Carrillo, [facility], [place], [place] DX: intractable headache,migraines, borderline intracranial hypotension RFV: Evaluate and treat Scheduling instructions: Patient can see first available Headache specialist Patient to have CT myelogram spine at [facility] with Dr. Quintero. Outside records will be uploaded to chart in Scanned Docs. Allergies As of Date: 07/15/2021 (Not on File) Date Reviewed: Never Reviewed Reason for Visit: Received Outside Medical Records [[id number]] Cmt: OSH NI referral to Headache AND Facial Pain Problem List As Of Date: 07/15/2021 (None) Encounter Status:Closed by JOY KEARNEY on 07/15/[address] [facility] Vital Signs Date Time Vital Sign Value Performing Clinician Facility 05-24-2023 15:01-0500 Body height 152.4 cm Clayalberta Justinary DO Work Phone: [facility] 05-24-2023 15:01-0500 Body mass index (BMI) [Ratio] 33.12 kg/m2 Clayalberta Audrakhary DO Work Phone: [facility] 05-24-2023 15:01-0500 Body weight 76.93 kg Daniel Andersonary DO Work Phone: [facility] 05-24-2023 15:01-0500 Diastolic blood pressure 95 mm[Hg] Daniel Zhukhary DO Work Phone: [facility] Comment on above: had a stressful morning 05-24-2023 15:01-0500 Heart rate 76 /min Daniel Zhukhary DO Work Phone: [facility] 05-24-2023 15:01-0500 Respiratory rate 18 /min Daniel Andersonary DO Work Phone: [facility] 05-24-2023 15:01-0500 SaO2% (BldA) [Mass fraction] 97 % Daniel Jimenez DO Work Phone: [facility] 05-24-2023 15:01-0500 Systolic blood pressure 159 mm[Hg] Clayalberta Barbara DO Work Phone: [facility] Comment on above: had a stressful morning 10-28-2022 11:00-0400 Body temperature 98.8 [degF] Inocencio Rosado Work Phone: [facility] [place] [address] DO Work Phone: 10-28-2022 11:00-0400 Diastolic blood pressure 90 mm[Hg] Inocencio Rosado Work Phone: [facility] [place] [address] DO Work Phone: 10-28-2022 11:00-0400 Heart rate 86 /min Inocencio Rosado Work Phone: [facility] [place] [address] DO Work Phone: 10-28-2022 11:00-0400 Respiratory rate 16 /min Inocencio Rosado Work Phone: [facility] [place] [address] DO Work Phone: 10-28-2022 11:00-0400 SaO2% (BldA) [Mass fraction] 96 % Inocencio Rosado Work Phone: [facility] [place] [address] DO Work Phone: 10-28-2022 11:00-0400 Systolic blood pressure 136 mm[Hg] Inocencio Rosado Work Phone: [facility] [place] [address] DO Work Phone: 07-29-2022 11:00-0400 Body mass index (BMI) [Ratio] 33.54 kg/m2 Inocencio Rosado Work Phone: [facility] [place] [address] DO Work Phone: 07-29-2022 11:00-0400 Body surface area Derived from formula 1.75 m2 Inocencio Gilmore Jonahchristiano Work Phone: [facility] [place] [address] DO Work Phone: 07-29-2022 11:00-0400 Body temperature 97.9 [degF] Inocencio Gilmore Jonahchristiano Work Phone: [facility] [address] DO Work Phone: 07-29-2022 11:00-0400 Body weight 77.9 kg Inocencio Gilmore Jonahchristiano Work Phone: [facility] [address] DO Work Phone: 07-29-2022 11:00-0400 Diastolic blood pressure 80 mm[Hg] Inocencio Gilmore Ashlee Work Phone: [facility] [address] DO Work Phone: 07-29-2022 11:00-0400 Heart rate 79 /min Inocencio Rosado Work Phone: [facility] [address] DO Work Phone: 07-29-2022 11:00-0400 Respiratory rate 16 /min Inocencio Rosado Work Phone: [facility] [address] DO Work Phone: 07-29-2022 11:00-0400 SaO2% (BldA) [Mass fraction] 99 % Inocencio Gilmore Jonahchristiano Work Phone: [facility] [place] [address] DO Work Phone: 07-29-2022 11:00-0400 Systolic blood pressure 138 mm[Hg] Inocencio Gilmore Ashlee Work Phone: [facility] [address] DO Work Phone: 05-11-2022 11:19-0500 Body height 152.4 cm Inocencio Gilmore Ashlee Work Phone: [facility] Work Phone: 05-11-2022 11:19-0500 Body mass index (BMI) [Ratio] 32.22 kg/m2 Inocencio Rosado Work Phone: [facility] Work Phone: 05-11-2022 11:19-0500 Body surface area Derived from formula 1.72 m2 Inocencio Rosado Work Phone: [facility] Work Phone: 05-11-2022 11:19-0500 Body weight 74.84 kg Inocencio Rosado Work Phone: [facility] Work Phone: 05-11-2022 11:19-0500 Diastolic blood pressure 91 mm[Hg] Inocencio Rosado Work Phone: [facility] Work Phone: 05-11-2022 11:19-0500 Heart rate 80 /min Inocencio Rosado Work Phone: [facility] Work Phone: 05-11-2022 11:19-0500 Respiratory rate 18 /min Inocencio Rosado Work Phone: [facility] Work Phone: 05-11-2022 11:19-0500 SaO2% (BldA) [Mass fraction] 98 % Inocencio Rosado Work Phone: [facility] Work Phone: 05-11-2022 11:19-0500 Systolic blood pressure 149 mm[Hg] Inocencio Rosado Work Phone: [facility] Work Phone: 05-11-2022 11:19-0500 0 1 Inocencio Mando Rosado Work Phone: [facility] Work Phone: Comment on above: [facility] 04-06-2022 11:45-0500 Body height 152.4 cm Inocencio Rosado [facility] Work Phone: 04-06-2022 11:45-0500 Body mass index (BMI) [Ratio] 32.81 kg/m2 Inocencio Rosado Work Phone: [facility] Work Phone: 04-06-2022 11:45-0500 Body surface area Derived from formula 1.73 m2 Inocencio Rosado Work Phone: [facility] Work Phone: 04-06-2022 11:45-0500 Body temperature 96.8 [degF] Inocencio G Ahslee Work Phone: [facility] [facility] Work Phone: 04-06-2022 11:45-0500 Body weight 76.2 kg Inocencio Mando Rosado Work Phone: [facility] Work Phone: 04-06-2022 11:45-0500 Diastolic blood pressure 95 mm[Hg] Inocencio Rosado Work Phone: [facility] Work Phone: 04-06-2022 11:45-0500 Heart rate 77 /min Inocencio Rosado Work Phone: [facility] Work Phone: 04-06-2022 11:45-0500 Respiratory rate 16 /min Inocencio Rosado Work Phone: [facility] Work Phone: 04-06-2022 11:45-0500 SaO2% (BldA) [Mass fraction] 99 % Inocencio Rosado Work Phone: [facility] Work Phone: 04-06-2022 11:45-0500 Systolic blood pressure 139 mm[Hg] Inocencio Rosado Work Phone: [facility] Work Phone: 01-12-2022 11:11-0400 Body mass index (BMI) [Ratio] 32.03 kg/m2 Inocencio Rosado Work Phone: [facility] Work Phone: 01-12-2022 11:11-0400 Body surface area Derived from formula 1.72 m2 Inocencio Rosado Work Phone: -[facility] Work Phone: 01-12-2022 11:11-0400 Body weight 74.39 kg Inocencio Rosado Work Phone: -[facility] Work Phone: 01-12-2022 11:11-0400 Diastolic blood pressure 97 mm[Hg] Inoecncio Rosado Work Phone: -[facility] Work Phone: 01-12-2022 11:11-0400 Heart rate 91 /min Inocencio Rosado Work Phone: -[facility] Work Phone: 01-12-2022 11:11-0400 SaO2% (BldA) [Mass fraction] 97 % Inocencio Rosado Work Phone: -[facility] Work Phone: 01-12-2022 11:11-0400 Systolic blood pressure 135 mm[Hg] Inocenciodedra Rosado Work Phone: [facility] [address] [place] Work Phone: 01-12-2022 11:11-0400 0 1 Inocencio Rosado Work Phone: [facility] Work Phone: Comment on above: [facility] 12-15-2021 11:40-0400 Body height 152.4 cm Inocencio Gilmore Jonahchristiano Work Phone: [facility] [address] [place] Work Phone: 12-15-2021 11:40-0400 Body mass index (BMI) [Ratio] 32.03 kg/m2 Inocencio G Jonahchristiano Work Phone: [facility] [address] [place] Work Phone: 12-15-2021 11:40-0400 Body surface area Derived from formula 1.72 m2 Inocencio G Jonahchristiano Work Phone: [facility] [address] [place] Work Phone: 12-15-2021 11:40-0400 Body temperature 97.8 [degF] Inocencio G Jonahchristiano Work Phone: [facility] [address] [place] Work Phone: 12-15-2021 11:40-0400 Body weight 74.39 kg Inocencio G Jonahchristiano Work Phone: [facility] [address] [place] Work Phone: 12-15-2021 11:40-0400 Diastolic blood pressure 89 mm[Hg] Inocencio Mckenzieigan Work Phone: [facility] [address] [place] Work Phone: 12-15-2021 11:40-0400 Heart rate 75 /min Inocencio Rosado Work Phone: [facility] [address] [place] Work Phone: 12-15-2021 11:40-0400 SaO2% (BldA) [Mass fraction] 97 % Inocencio Rosado Work Phone: [facility] [address] [place] Work Phone: 12-15-2021 11:40-0400 Systolic blood pressure 136 mm[Hg] Inocencio Rosado [facility] [place] Work Phone: 10-16-2021 15:42-0400 Body height 152.4 cm Referring Provider Unknown Susana Ross [facility] Work Phone: 10-16-2021 15:42-0400 Body mass index (BMI) [Ratio] 32.22 kg/m2 Referring Provider Unknown KhurramKwesileslie Ross [facility] Work Phone: 10-16-2021 15:42-0400 Body surface area Derived from formula 1.72 m2 Referring Provider Unknown Susana Ross [facility] Work Phone: 10-16-2021 15:42-0400 Body weight 74.84 kg Referring Provider Unknown [facility] Work Phone: 10-06-2021 12:49-0400 Body height 152.4 cm Referring Provider [facility] [place] Work Phone: 10-06-2021 12:49-0400 Body mass index (BMI) [Ratio] 32.22 kg/m2 Referring Provider [facility] [place] Work Phone: 10-06-2021 12:49-0400 Body surface area Derived from formula 1.72 m2 Referring Provider [facility] [place] Work Phone: 10-06-2021 12:49-0400 Body temperature 98 [degF] Referring Provider Unknown [facility] [address] [place] Work Phone: 10-06-2021 12:49-0400 Body weight 74.84 kg Referring Provider Unknown [facility] [address] [place] Work Phone: 10-06-2021 12:49-0400 Diastolic blood pressure 87 mm[Hg] Referring Provider Unknown [facility] [place] Work Phone: 10-06-2021 12:49-0400 Heart rate 96 /min Ref[facility] [place] Work Phone: 10-06-2021 12:49-0400 SaO2% (BldA) [Mass fraction] 99 % Referring Provider Unknown [facility] [address] [place] Work Phone: 10-06-2021 12:49-0400 Systolic blood pressure 126 mm[Hg] Referring Provider Unknown [facility] [address] [place] Work Phone: 08-06-2021 09:10-0400 Body height 152.4 cm Nancy Villalta DO Work Phone: [facility] 08-06-2021 09:10-0400 Body weight 74.84 kg Nanyc Villalta DO Work Phone: [facility] 08-06-2021 09:10-0400 Diastolic blood pressure 83 mm[Hg] Nancy Villalta DO Work Phone: [facility] 08-06-2021 09:10-0400 Heart rate 91 /min Nancy Villalta DO Work Phone: [facility] 08-06-2021 09:10-0400 Systolic blood pressure 143 mm[Hg] Nancy Villalta DO Work Phone: [facility] Encounters Encounter Date Encounter Type Care Provider Facility Start: 05-04-2024 ambulatory Francesco Castilloi ty:[facility] Start: 05-02-2024 End: 05-06-2024 ambulatory Francesco Bermeo Facility:[facility] Start: 04-11-2024 ambulatory Francesco Bermeo Facili [facility]: [facility] Start: 03-01-2024 End: 03-01-2024 ambulatory Francesco Bermeo Facility:[facility] Start: 02-08-2024 End: 02-08-2024 ambulatory Mendoza Shine Facility:[facility] Start: 02-02-2024 End: 02-02-2024 ambulatory Francesco Bermeo Facility:[facility] Start: 01-31-2024 End: 01-31-2024 Office outpatient visit 25 minutes Zoie Tejeda TECHNOLOGY APPLICATIONS CONSULTANT-UNIT RECEPTIONIST Work Phone: [facility] Comment on above: Migraine without aur a and without status migrainosus, not intractable (Primary Dx) Start: 12-28-2023 End: 12-28-2023 ambulatory NICOLE P FRAN Facility:[facility] Start: 11-10-2023 End: 11-10-2023 ambulatory Patricio Moser Facility:[facility] Start: 10-12-2023 End: 10-12-2023 ambulatory NICOLE P FRAN Facility:[facility] Start: 10-11-2023 End: 10-11-2023 ambulatory NICOLE P HOUSE Facility:[facility] Start: 10-07-2023 End: 10-07-2023 ambulatory NICOLE P HOUSE Facility:[facility] Start: 09-27-2023 End: 09-27-2023 ambulatory DO NICOLE P HOUSE Facility:[facility] Start: 06-29-2023 End: 06-29-2023 ambulatory NICOLE P HOUSE Facility:[facility] Start: 05-24-2023 End: 05-24-2023 Office outpatient visit 15 minutes Daniel Jimenez DO Work Phone: [facility] Comment on above: MYRIAM (obstructive sle ep apnea) (Primary Dx) Start: 03-30-2023 End: 03-30-2023 ambulatory Ashu Goff Facility:[facility] Start: 03-30-2023 End: 03-30-2023 ambulatory MD Inocencio Rosado Work Phone: [facility] Work Phone: Start: 03-30-2023 End: 03-30-2023 Patient encounter procedure MD Inocencio Rosado Work Phone: [facility] [place] Work Phone: Start: 10-28-2022 Patient encounter procedure Inocencio Rosado Work Phone: [facility] [address] [place] Work Phone: Start: 10-28-2022 ambulatory Ms. Cosme padilla Arundedra Facility: Start: 10-22-2022 ambulatory Eve Prosak Facility:1 5 Start: 09-24-2022 AUDIT Inocencio Blanchard an Work Phone: [facility]Ttyfxwcne-Pzelbxer [address] Work Phone: Start: 09-23-2022 AUDIT Inocencio Blanchard an Work Phone: RS-Cwrbcfoeq-Qtnvrobb [address] Work Phone: Start: 09-17-2022 ambulatory Eve Prosak Facility:1 5 Start: 09-01-2022 ambulatory Eve Prosak Facility:1 [id number] Start: 07-29-2022 ambulatory MsMaximiliano Griselda Hammonds [facility] ity:[id number] Start: 07-29-2022 Patient encounter procedure Inocencio Rosado Work Phone: [facility] 1600 [place] Work Phone: Start: 07-29-2022 ambulatory Ms. Cosme Dawn hangjerri Arundedra Facility: Start: 07-15-2022 Patient encounter procedure Inocencio Rosado Work Phone: [facility] Work Phone: Start: 07-15-2022 ambulatory PAC LISSA YOUNG Facility:[id number] Start: 06-11-2022 AUDIT Inocencio Blanchard an Work Phone: DJ-Knihqkgcj-Ylnrhnzn [address] Work Phone: Start: 06-10-2022 TRA, Provider : Griselda Hammonds, Status: Pen, Time: 5:00 PM Inocencio G Jonahchristiano Work Phone: CE-Gvnpufsup-Mlhoxjjv B 101 Work Phone: Start: 06-10-2022 JEWELL, Provider: Lissa Young, Status: Pen, Time: 4:00 PM Inocencio Mando Ashlee Work Phone: CC-Kebazekuf-Nlkhojcg B 101 Work Phone: Start: 06-10-2022 Office outpatient vi sit 40 minutes Inocencio G Ashlee Work Phone: [employer] Work Phone: Start: 06-10-2022 Patient encounter procedure Inocencio Rosado Work Phone: [employer] Work Phone: Start: 06-10-2022 ambulatory Ms. Griselda Hammonds Facil ity:[id number] Start: 06-10-2022 MERLE, Provider: Xavier Osorio, Status: Pen, Time: 2:20 PM Inocencio Rosado Work Phone: JD-Opzmxhctr-Yggtydkh B 101 Work Phone: Start: 06-08-2022 AUDIT Inocencio Blanchard an Work Phone: LM-Pgiqehsor-Tzzomzmp [address] Work Phone: Start: 06-03-2022 Office outpatient vi sit 25 minutes Inocencio Rosado Work Phone: SR-Irdmcxcry-Elcfmfmu [address] Work Phone: Start: 06-03-2022 ambulatory Zoie Tejeda Facility:9 536 Start: 05-29-2022 Office outpatient ne w 30 minutes Inocencio Rosado Work Phone: [employer] Work Phone: Start: 05-29-[address] Xavier Osorio Facility:[id number] Start: 05-25-2022 ambulatory Ms. Griselda Hammonds Facil ity:[id number] Start: 05-11-2022 ambulatory Daniel Jimenez Facilit y:[id number] Start: 05-11-2022 Current tobacco non-user cad cap copd pv dm Inocencio Rosado Work Phone: [facility] 2300 Work Phone: Start: 05-04-2022 ambulatory Ms. Griselda Hammonds Facil ity:[id number] Start: 05-04-2022 ambulatory Ms. Flower Nguyễn Facil ity:[id number] Start: 05-04-2022 Patient encounter procedure Inocencio G Ashlee Work Phone: [facility] Work Phone: Start: 04-13-2022 ambulatory Ms. Griselda Hammonds Facil ity:[id number] Start: 04-13-2022 ambulatory Ms. Flower Nguyễn Facil ity:[id number] Start: 04-13-2022 Patient encounter procedure Inocencio Mando Ashlee Work Phone: [facility] Work Phone: Start: 04-06-2022 ambulatory Flower Nguyễn Facility: [facility] Start: 04-06-2022 ambulatory Ms. Flower Nguyễn Facil ity:[id number] Start: 04-06-2022 Patient encounter procedure Inocencio G Jonahchristiano Work Phone: [facility] Work Phone: Start: 03-11-2022 ambulatory Ms. Griselda Hammonds Facil ity:[id number] Start: 03-11-2022 ambulatory Ms. Flower Nguyễn Facil ity:[id number] Start: 03-11-2022 Patient encounter procedure Inocencio Mando Ashlee Work Phone: [facility] Work Phone: Start: 03-04-2022 TRA, Provider : Griselda Hammonds, Status: Pen, Time: 11:00 AM Inocencio Rosado Work Phone: [facility] [address] [place] Work Phone: Start: 03-04-2022 ambulatory Ms. Griselda Hammonds Facil ity:[id number] Start: 03-04-2022 Patient encounter procedure Inocencio Gilmore Jonahchristiano Work Phone: [facility] Work Phone: Start: 03-04-2022 PTFUADULT4, Provider : Manish Kramer, Status: Pen, Time: 8:30 AM Inocencio Gilmore Jonahchristiano Work Phone: [place] [address] [place] Work Phone: Start: 03-04-2022 ambulatory Ms. Flower Castillo ity:[id number] Start: 03-02-2022 Office outpatient vi sit 15 minutes Inocencio G Ashlee Work Phone: [place] [address] [place] Work Phone: Start: 02-18-2022 ambulatory Ms. Flower Castillo ity:[id number] Start: 02-18-2022 PTFUADULT4, Provider : Manish Kramer, Status: Pen, Time: 9:15 AM Inocencio G Ashlee Work Phone: [facility] Work Phone: Start: 02-17-2022 ambulatory Ms. Griselda Hammonds Facil ity:[id number] Start: 02-17-2022 Patient encounter procedure Inocencio G Ashlee Work Phone: [facility] Work Phone: Start: 02-09-2022 Patient encounter procedure Inocencio G Ashlee Work Phone: [facility] Work Phone: Start: 02-09-2022 ambulatory Ms. Griselda Hammonds Facil ity:[id number] Start: 02-09-2022 Patient encounter procedure Inocencio G Ashlee Work Phone: [facility] Work Phone: Start: 02-09-2022 ambulatory Ms. Flower Nguyễn Facil ity:[id number] Start: 02-05-2022 ambulatory Ms. Griselda Hammonds Facil ity:[id number] Start: 01-27-2022 AUDIT Inocencio Blanchard an Work Phone: [facility] Work Phone: Start: 01-27-2022 ambulatory Ms. Griselda Hammonds Facil ity:[id number] Start: 01-20-2022 Patient encounter procedure Inocencio Rosado Work Phone: [facility] Work Phone: Start: 01-20-2022 ambulatory Ms. Griselda Hammonds Facil ity:[id number] Start: 01-13-2022 Rx Renewal Inocencio Blanchard an Work Phone: [address] Work Phone: Start: 01-12-2022 Current tobacco non-user cad cap copd pv dm Inocencio Rosado Work Phone: [facility] [address] [place] Work Phone: Start: 01-12-2022 ambulatory Daniel Jimenez Facilit y:[id number] Start: 12-17-2021 VIRBRIANA, Provider : Zoie Tejeda, Status: Pen, Time: 9:30 AM Inocencio Rosado Work Phone: [facility] [address] [place] Work Phone: Start: 12-17-2021 ambulatory Zoie Tejeda Facility:9 536 Start: 12-16-2021 ambulatory Ms. Griselda Hammonds Facil ity:[id number] Start: 12-16-2021 TRA, Provider : Griselda Hammonds, Status: Pen, Time: 10:30 AM Inocencio Rosado Work Phone: [facility] 130 [place] Work Phone: Start: 12-16-2021 Patient encounter procedure Inocencio Rosado Work Phone: Puneet Ross [facility] Work Phone: Start: 12-15-2021 Patient encounter procedure Inocencio Rosado Work Phone: [facility] 130 [place] Work Phone: Start: 12-15-2021 ambulatory Flower Nguyễn Facility: [facility] Start: 11-21-[address] Aundrea Jimenezahim Facility: Start: 11-18-2021 ambulatory Ms. Griselda Hammonds Facil ity:[id number] Start: 11-18-2021 Patient encounter procedure Inocencio Rosado Work Phone: Puneet Ross [facility] Work Phone: Start: 11-12-2021 Patient encounter procedure [facility]ocencio Rosado [facility] Work Phone: Start: 11-12-2021 ambulatory [facility] Facility:1 [facility] Start: 11-04-2021 ambulatory Ms. Griselda Hammonds Facil ity:[id number] Start: 11-04-2021 Patient encounter procedure Inocencio Rosado Work Phone: [facility] [address] [place] Work Phone: Start: 11-04-2021 ambulatory TAMMI NGUYỄN Facil ity: Start: 10-24-2021 Office outpatient ne w 60 minutes Referring Provider Unknown [facility] Work Phone: Start: 10-24-2021 Telephone encounter Referring Provider Unknown [facility] [address] [place] Work Phone: Start: 10-17-2021 Patient encounter procedure Referring Provider Unknown [facility] 130 [place] Work Phone: Start: 10-16-2021 SHANDA, Provider : Joana Tejeda, Status: Pen, Time: 3:00 PM Referring Provider Unknown KQ-Puryzobod-Oldkyxdc B [address] Work Phone: Start: 10-16-2021 FUVACUPUNC, Provider : Griselda Hammonds, Status: Tyson, Time: 11:30 AM Referring Provider Unknown NI-Dzfcigrnp-Xrrjfllm B 101 Work Phone: Start: 10-15-2021 Office outpatient ne w 45 minutes Referring Provider Unknown PJ-Smxkjwkxk-Ilmglzec B 101 Work Phone: Start: 10-08-2021 AUDIT Referring Prov ider Unknown [facility]-Pulm [facility] 3100 Work Phone: Start: 10-08-2021 NPVACUPJENARO, Provider : Griselda Hammonds, Status: Pen, Time: 1:00 PM Referring Provider Unknown [facility] 130 [place] Work Phone: Start: 10-08-2021 Patient encounter procedure Referring Provider Unknown [facility] Work Phone: Start: 10-06-2021 Patient encounter procedure Referring Provider Unknown [facility] 130 [place] Work Phone: Start: 10-06-2021 ambulatory PCP UNKNOWN Facility:[facility] Start: 09-19-2021 Orders Only Nancy Wetzel Work [...] Daniel franco DO Work Phone: Appendectomy Inocencio Blancharda n Work Phone: Colonoscopy Inocencio Gilmore Santoa n Work Phone: Endoscopy Inocencio Gilmore Santoa n Work Phone: Hysterectomy Referring Provi bailey Unknown Ligation of fallopian tube Regina Rosado Work Phone: Tonsillectomy and adenoidectomy Inocencio Rosado Work Phone: Plan of Treatment Date Care Activity Detail Author Start: 04-07-2031 Screening for malignant neoplasm of colon [facility] Start: 11-18-2025 DTaP/Tdap/Td Vaccines (2 - Td or Tdap) DTaP/Tdap/Td Vaccines (2 - Td or Tdap) [facility] Start: 05-25-2024 End: 05-25-2024 Patient encounter procedure 05/25/2024 3:00 PM EST Office Visit [facility] [address] [place] [id number] Daniel Jimenez DO [address] [place] [address] [facility] Start: 02-22-2024 Zoster Vaccines (2 of 2) Zoster Vaccines (2 of 2) [facility] Start: 02-08-2024 End: 02-08-2024 ambulatory 02/08/2024 10:00 AM EDT Infusion [facility] [address] [place] [address] [facility] Start: 12-26-2023 COVID-19 Vaccine ( season) COVID-19 Vaccine ( season) [facility] Start: 12-26-2023 Influenza vaccination Influenza Vaccine (#1) [facility] Start: 07-30-2023 End: 07-30-2023 ambulatory 07/30/2023 11:00 AM EDT Infusion [facility] [address] [place] [address] [facility] Start: 05-10-2023 FUV, Provider: Daniel Jimenez, Status: Pen, Time: 11:00 AM FUV, Provider: Daniel Jimenez, Status: Pen, Time: 11:00 AM [facility]00 Work Phone: Start: 03-30-2023 MR Orbit WO and W contrast IV [facility] Start: 03-30-2023 MRI of orbit with contrast MR orbit wo/w [facility] Start: 03-30-2023 MR Unspecified body region [facility] Start: 03-30-2023 MRI of head MR head/brain wo/w [facility] Start: 01-28-2023 [id number], Provider: [facility] INFUSION [facility] 01,[id number], Status: Pen, Time: 11:00 AM [id number], Provider: [facility] INF[facility] [id number], Status: Pen, Time: 11:00 AM [facility] [address] DO Work Phone: Start: 12-25-2022 COVID-19 Vaccine ( season) COVID-19 Vaccine ( season) [facility] Start: 11-12-2022 FUVACUPUNC, Provider: Griselda Hammonds, Status: Pen, Time: 11:00 AM FUVACUPUNC, Provider: Griselda Hammonds, Status: Pen, Time: 11:00 AM UJ-Ttyvktgqc-Tumcytmz B [address] Work Phone: Start: 11-12-2022 FUVCHIRO, Provider: Eve Mccollum, Status: Pen, Time: 10:40 AM FUVCHIRO, Provider: Eve Mccollum, Status: Pen, Time: 10:40 AM EK-Edpcwwcky-Hqnfwvzy [address] Work Phone: Start: 10-28-2022 [id number], Provider: [facility] INFUSION RO[facility] [id number], Status: Pen, Time: 11:00 AM [id number], Provider: [facility] IN[facility] 04,[id number], Status: Pen, Time: 11:00 AM [facility] [address] DO Work Phone: Start: 10-22-2022 FUVACUPUNC, Provider: Griselda Hammonds, Status: Pen, Time: 11:30 AM FUVACUPUNC, Provider: Griselda Hammonds, Status: Pen, Time: 11:30 AM OZ-Qnrszzavk-Yaocoxoe [address] Work Phone: Start: 10-22-2022 FUVCHIRO, Provider: Eve Mccollum, Status: Pen, Time: 11:00 AM FUVCHIRO, Provider: Eve Mccollum, Status: Pen, Time: 11:00 AM BK-Tcjazgsqm-Zygwmgyx [address] Work Phone: Start: 10-01-2022 FUVACUPUNC, Provider: Griselda Hammonds, Status: Pen, Time: 11:00 AM FUVACUPUNC, Provider: Griselda Hammonds, Status: Pen, Time: 11:00 AM [facility] Work Phone: Start: 10-01-2022 FUVCHIRO, Provider: Eve Mccollum, Status: Pen, Time: 10:20 AM FUVCHIRO, Provider: Eve Mccollum, Status: Pen, Time: 10:20 AM [facility] Work Phone: Start: 09-17-2022 FUVACUPUNC, Provider: Griselda Hammonds, Status: Pen, Time: 11:00 AM FUVACUPUNC, Provider: Griselda Hammonds, Status: Pen, Time: 11:00 AM [place] Phone: Start: 09-17-2022 FUVCHIRO, Provider: Eve Mccollum, Status: Pen, Time: 10:20 AM FUVCHIRO, Provider: Eve Mccollum, Status: Pen, Time: 10:20 AM [place] Phone: Start: 09-01-2022 FUVACUPUNC, Provider: Griselda Hammonds, Status: Pen, Time: 12:00 PM FUVACUPUNC, Provider: Griselda Hammonds, Status: Pen, Time: 12:00 PM [place] Phone: Start: 09-01-2022 FUVCHIRO, Provider: Eve Mccollum, Status: Pen, Time: 11:40 AM FUVCHIRO, Provider: Eve Mccollum, Status: Pen, Time: 11:40 AM [place] Phone: Start: 08-20-2022 FUVACUPUNC, Provider: Griselda Hammonds, Status: Pen, Time: 2:00 PM FUVACUPUNC, Provider: Griselda Hammonds, Status: Pen, Time: 2:00 PM [place] Phone: Start: 08-20-2022 FUVCHIRO, Provider: Eve Mccollum, Status: Pen, Time: 1:40 PM FUVCHIRO, Provider: Eve Mccollum, Status: Pen, Time: 1:40 PM [place] Phone: Start: 07-30-2022 Adult depression screening assessment DEPRESSION SCREENING [facility] Start: 07-29-2022 FUVACUPUNC, Provider: Griselda Hammonds, Status: Pen, Time: 3:00 PM FUVACUPUNC, Provider: Griselda Hammonds, Status: Pen, Time: 3:00 PM [place] Phone: Start: 07-29-2022 FUVCHIRO, Provider: Eve Mccollum, Status: Pen, Time: 2:20 PM FUVCHIRO, Provider: Eve Mccollum, Status: Pen, Time: 2:20 PM [facility] Work Phone: Start: 07-15-2022 FUVACUPUNC, Provider: Griselda Hammonds, Status: Pen, Time: 12:30 PM FUVACUPUNC, Provider: Griselda Hammonds, Status: Pen, Time: 12:30 PM [facility] Work [facility]: Start: 07-15-2022 FUVCHIRO, Provider: Xavier Osorio, Status: Pen, Time: 12:00 PM FUVCHIRO, Provider: Xavier Osorio, Status: Pen, Time: 12:00 PM [facility] Work Phone: Start: 07-03-2022 FUVCHIRO, Provider: Xavier Osorio, Status: Pen, Time: 2:20 PM FUVCHIRO, Provider: Xavier Osorio, Status: Pen, Time: 2:20 PM [facility] Work Phone: Start: 07-01-2022 FUVACUPUNC, Provider: Griselda Hammonds, Status: Pen, Time: 3:00 PM FUVACUPUNC, Provider: Griselda Hammonds, Status: Pen, Time: 3:00 PM [facility] Work Phone: Start: 07-01-2022 FUVCHIRO, Provider: Xavier Osorio, Status: Pen, Time: 2:40 PM FUVCHIRO, Provider: Xavier Osorio, Status: Pen, Time: 2:40 PM [facility] Work Phone: Start: 06-10-2022 FUVACUPUNC, Provider: Griselda Hammonds, Status: Pen, Time: 5:00 PM FUVACUPUNC, Provider: Griselda Hammonds, Status: Pen, Time: 5:00 PM [facility] Work Phone: Start: 06-10-2022 FUV, Provider: Lissa Young, Status: Pen, Time: 4:00 PM FUV, Provider: Lissa Young, Status: Pen, Time: 4:00 PM [facility] [facility] Work Phone: Start: 06-10-2022 FUVCHIRO, Provider: Xavier Osorio, Status: Pen, Time: 2:20 PM FUVCHIRO, Provider: Xavier Osorio, Status: Pen, Time: 2:20 PM [facility] Work Phone: Start: 06-03-2022 VIRFUVPAPIE, Provider: Joana Tejeda, Status: Pen, Time: 11:00 AM VIRFUVPAPIE, Provider: Joana Tejeda, Status: Pen, Time: 11:[address] Work Phone: Start: 06-03-2022 VIRFUVPAPIE, Provider: Zoie Tejeda, Status: Pen, Time: 9:30 AM VIRFUVPAPIE, Provider: Zoie Tejeda, Status: Pen, Time: 9:30 AM [facility] Work Phone: Start: 05-25-2022 FUVACUPUNC, Provider: Griselda Hammonds, Status: Pen, Time: 11:00 AM FUVACUPUNC, Provider: Griselda Hammonds, Status: Pen, Time: 11:00 AM [facility] Work Phone: Start: 05-11-2022 FUV, Provider: Daniel Jimenez, Status: Pen, Time: 11:00 AM FUV, Provider: Daniel Jimenez, Status: Pen, Time: 11:[address] Work Phone: Start: 05-04-2022 FUVACUPUNC, Provider: Griselda Hammonds, Status: Pen, Time: 12:00 PM FUVACUPUNC, Provider: Griselda Hammonds, Status: Pen, Time: 12:00 PM [facility] Work Phone: Start: 05-04-2022 PTFUADULT4, Provider: Manish Kramer, Status: Pen, Time: 9:15 AM PTFUADULT4, Provider: Manish Kramer, Status: Pen, Time: 9:15 AM [facility] Work Phone: Start: 04-22-2022 PTFUADULT4, Provider: Manish Kramer, Status: Pen, Time: 8:30 AM PTFUADULT4, Provider: Manish Kramer, Status: Pen, Time: 8:30 AM [facility] Work Phone: Start: 04-13-2022 FUVACUPUNC, Provider: Griselda Hammonds, Status: Pen, Time: 11:00 AM FUVACUPUNC, Provider: Griselda Hammonds, Status: Pen, Time: 11:00 AM [facility] Work Phone: Start: 04-13-2022 PTFUADULT4, Provider: Manish Kramer, Status: Pen, Time: 8:30 AM PTFUADULT4, Provider: Manish Kramer, Status: Pen, Time: 8:30 AM [facility] Work Phone: Start: 04-06-2022 Patient encounter procedure FUVCOVID, Provider: [id number], Status: Pen, Time: 11:30 AM COVID Recovery [facility] [address] [place] Work Phone: Start: 04-06-2022 PTFUADULT4, Provider: Manish Kramer, Status: Pen, Time: 9:15 AM PTFUADULT4, Provider: Manish Kramer, Status: Pen, Time: 9:15 AM [facility] Work Phone: Start: 04-01-2022 PTFUADULT4, Provider: Manish Kramer, Status: Pen, Time: 2:00 PM PTFUADULT4, Provider: Manish Kramer, Status: Pen, Time: 2:00 PM Rehab [facility] Work Phone: Start: 04-01-2022 FUVACUPUNC, Provider: Griselda Hammonds, Status: Pen, Time: 10:30 AM FUVACUPUNC, Provider: Griselda Hammonds, Status: Pen, Time: 10:30 AM [facility] Work Phone: Start: 04-01-2022 PTFUADULT4, Provider: Manish Kramer, Status: Pen, Time: 8:30 AM PTFUADULT4, Provider: Manish Kramer, Status: Pen, Time: 8:30 AM [facility] Work Phone: Start: 03-11-2022 FUVACUPUNC, Provider: Griselda Hammonds, Status: Pen, Time: 11:00 AM FUVACUPUNC, Provider: Griselda Hammonds, Status: Pen, Time: 11:00 AM [facility] Work Phone: Start: 03-11-2022 PTFUADULT4, Provider: Manish Kramer, Status: Pen, Time: 8:30 AM PTFUADULT4, Provider: Manish Kramer, Status: Pen, Time: 8:30 AM [facility] Work Phone: Start: 03-05-2022 FUVACUPUNC, Provider: Griselda Hammonds, Status: Pen, Time: 11:00 AM FUVACUPUNC, Provider: Griselda Hammonds, Status: Pen, Time: 11:00 AM [facility] Work Phone: Start: 03-04-2022 FUVACUPUNC, Provider: Griselda Hammonds, Status: Pen, Time: 11:00 AM FUVACUPUNC, Provider: Griselda Hammonds, Status: Pen, Time: 11:00 AM [facility] Work Phone: Start: 03-04-2022 PTFUADULT4, Provider: Manish Kramer, Status: Pen, Time: 8:30 AM PTFUADULT4, Provider: Manish Kramer, Status: Pen, Time: 8:30 AM [facility] Work Phone: Start: 03-02-2022 VIRFUVHOME, Provider: Joana Tejeda, Status: Pen, Time: 9:30 AM VIRFUVHOME, Provider: Joana Tejeda, Status: Pen, Time: 9:[address] Work Phone: Start: 02-17-2022 FUVACUPUNC, Provider: Griselda Hammonds, Status: Pen, Time: 11:00 AM FUVACUPUNC, Provider: Griselda Hammonds, Status: Pen, Time: 11:00 AM [facility] Work Phone: Start: 02-10-2022 FUVACUPUNC, Provider: Griselda Hammonds, Status: Pen, Time: 2:30 PM FUVACUPUNC, Provider: Griselda Hammonds, Status: Pen, Time: 2:30 PM [facility] Work Phone: Start: 02-09-2022 PTEVAADULT, Provider: Manish Kramer, Status: Pen, Time: 9:15 AM PTEVAADULT, Provider: Manish Kramer, Status: Pen, Time: 9:15 AM [facility] Work Phone: Start: 02-05-2022 FUVACUPUNC, Provider: Griselda Hammonds, Status: Pen, Time: 10:30 AM FUVACUPUNC, Provider: Griselda Hammonds, Status: Pen, Time: 10:30 AM [facility] Work Phone: Start: 01-27-2022 FUVACUPUNC, Provider: Griselda Hammonds, Status: Pen, Time: 10:30 AM FUVACUPUNC, Provider: Griselda Hammonds, Status: Pen, Time: 10:30 AM [facility] Work Phone: Start: 01-20-2022 FUVACUPUNC, Provider: Griselda Hammonds, Status: Pen, Time: 3:00 PM FUVACUPUNC, Provider: Griselda Hammonds, Status: Pen, Time: 3:00 PM [facility] Work Phone: Start: 01-12-2022 NPV, Provider: Daniel Jimenez, Status: Pen, Time: 11:00 AM NPV, Provider: Daniel Jimenez, Status: Pen, Time: 11:00 AM [facility] [address] [place] Work Phone: Start: 12-24-2021 VIRFUVHOME, Provider: Joana Tejeda, Status: Pen, Time: 8:00 AM VIRFUVHOME, Provider: Joana Tejeda, Status: Pen, Time: 8:00 AM [facility] Work Phone: Start: 12-17-2021 VIRFUVHOME, Provider: Zoie Tejeda, Status: Pen, Time: 9:30 AM VIRFUVHOME, Provider: Zoie Tejeda, Status: Pen, Time: 9:30 AM [facility] [address] Work Phone: Start: 12-16-2021 FUVACUPUNC, Provider: Griselda Hammonds, Status: Pen, Time: 10:30 AM FUVACUPUNC, Provider: Griselda Hammonds, Status: Pen, Time: 10:30 AM [facility] Work Phone: Start: 12-15-2021 Patient encounter procedure FUVCOVID, Provider: [facility] RM1,[id number], Status: Pen, Time: 11:30 AM [facility] [address] [place] Work Phone: Start: 12-11-2021 NPV, Provider: Daniel Jimenez, Status: Pen, Time: 11:30 AM NPV, Provider: Daniel Jimenez, Status: Pen, Time: 11:30 AM [facility] Work Phone: Start: 12-02-2021 FUVACUPUNC, Provider: Griselda Hammonds, Status: Pen, Time: 10:30 AM FUVACUPUNC, Provider: Griselda Hammonds, Status: Pen, Time: 10:30 AM [facility] Work Phone: Start: 11-25-2021 FUVACUPUNC, Provider: Griselda Hammonds, Status: Pen, Time: 10:00 AM FUVACUPUNC, Provider: Griselda Hammonds, Status: Pen, Time: 10:00 AM [facility] Work Phone: Start: 11-18-2021 FUVACUPUNC, Provider: Griselda Hammonds, Status: Pen, Time: 10:30 AM FUVACUPUNC, Provider: Griselda Hammonds, Status: Pen, Time: 10:30 AM MG-Pulm [facility] 3100 Work Phone: Start: 11-12-2021 VIRFUVPAPIE, Provider: Joana Tejeda, Status: Pen, Time: 3:30 PM VIRFUVHOME, Provider: Joana Tejeda, Status: Pen, Time: 3:30 PM [facility] Work Phone: Start: 11-12-2021 FUVACUPUNC, Provider: Yakelin Acosta, Status: Pen, Time: 10:00 AM FUVACUPUNC, Provider: Yakelin Acosta, Status: Pen, Time: 10:00 AM MG-Pulm [facility] 3100 Work Phone: Start: 11-04-2021 FUVACUPUNC, Provider: Griselda Hammonds, Status: Pen, Time: 1:30 PM FUVACUPUNC, Provider: Griselda Hammonds, Status: Pen, Time: 1:30 PM [facility] Work Phone: Start: 11-04-2021 HOLTER MON, Provider: RAINA ROOT PLASTIC PANEL INSTALLER 1,[id number], Status: Pen, Time: 10:30 AM [facility], Provider: RAINA ROOT PLASTIC PANEL INSTALLER 1,[id number], Status: Pen, Time: 10:[address] Work Phone: Start: 10-24-2021 VIRNPVHOME, Provider: Lissa Young, Status: Pen, Time: 2:00 PM VIRNPVHOME, Provider: Lissa Young, Status: Pen, Time: 2:[address] Work Phone: Start: 10-16-2021 VIRNPVHOME, Provider: Joana Tejeda, Status: Pen, Time: 3:00 PM VIRNPVPAPIE, Provider: Joana Tejeda, Status: Pen, Time: 3:00 PM [facility] Work Phone: Start: 10-16-2021 FUVACUPUNC, Provider: Griselda Hammonds, Status: Pen, Time: 11:30 AM FUVACUPUNC, Provider: Griselda Hammonds, Status: Pen, Time: 11:30 AM MG-Pulm [facility] 3100 Work Phone: Start: 10-14-2021 NPVGENERAL, Provider: Xavier Mai, Status: Pen, Time: 8:30 AM NPVGENERAL, Provider: Xavier Mai, Status: Pen, Time: 8:[address] Work Phone: Start: 04-26-2021 ADVANCE DIRECTIVE DISCUSSION ADVANCE DIRECTIVE DISCUSSION [facility] Start: 02-07-2021 Screening for malignant neoplasm of breast Mammogram [facility] Start: 12-25-2020 Influenza vaccination INFLUENZA (#1) [facility] Start: 11-29-2020 COVID-19 VACCINE (3 - Booster for Pfizer series) COVID-19 VACCINE (3 - Booster for Pfizer series) [facility] Start: 09-13-2020 BONE DENSITY BONE DENSITY [facility] Start: 09-13-2020 PNEUMOCOCCAL: 65+ (1 - PCV) PNEUMOCOCCAL: 65+ (1 - PCV) [facility] Start: 09-13-2020 PNEUMOVAX AGE 65 AND OVER WITH 5YR LOOKBACK (#1) PNEUMOVAX AGE 65 AND OVER WITH 5YR LOOKBACK (#1) [facility] Start: 2015 RSV patients and/or patients aged 60+ years (1 - 1-dose 60+ series) RSV patients and/or patients aged 60+ years (1 - 1-dose 60+ series) [facility] Start: 09-13-2005 SHINGRIX VACCINE (1 of 2) SHINGRIX VACCINE (1 of 2) [facility] Start: 09-13-2005 Zoster Vaccines (1 of 2) Zoster Vaccines (1 of 2) [facility] Start: 09-13-2000 COLOGUARD (FIT-DNA) COLOGUARD (FIT-DNA) [facility] Start: 09-13-[address] [facility] Start: 09-13-2000 COLORECTAL CANCER SCREENING COLORECTAL CANCER SCREENING [facility] Start: 09-13-[address] [facility] Start: 09-13-2000 DIABETES SCREEN DIABETES SCREEN [facility] Start: 09-13-2000 FECAL OCCULT BLOOD FECAL OCCULT BLOOD [facility] Start: 09-13-2000 LIPID SCREEN LIPID SCREEN [facility] Start: 09-13-[address] [facility] Start: [address] [facility] Start: 09-13-1974 Urine microalbumin profile DTAP,TDAP,TD (1 - Tdap) [facility] Start: 09-13-1973 Diabetes mellitus screening Diabetes Screening [facility] Start: 09-13-1973 HEPATITIS C SCREENING HEPATITIS C SCREENING [facility] Start: 09-13-1973 Hepatitis C screening Hepatitis C Screening [facility] Start: 09-13-1973 HIV SCREENING HIV SCREENING [facility] Start: 1967 Adult depression screening assessment DEPRESSION SCREENING [facility] Start: 09-13-1960 COVID-19 VACCINE (1) COVID-19 VACCINE (1) [facility] Start: 1955 Lipid panel Lipid Panel [facility] Start: 1955 Medicare Annual Wellness Visit Medicare Annual Wellness Visit (AWV) [facility] Start: 1955 Screening for malignant neoplasm of colon [facility] Start: 1955 Screening for osteoporosis Bone Density Scan [facility] Immunizations Immunization Date Immunization Notes Care Provider Fa cility 03-30-2023 influenza virus vacc ine, unspecified formulation Zoie Tejeda TECHNOLOGY APPLICATIONS CONSULTANT-UNIT RECEPTIONIST Work Phone: [facility] Work Phone: 03-10-2022 Fluad Quadrivalent 0 .5 ML Intramuscular Prefilled Syringe Inocencio Rosado Work Phone: [facility] 03-10-2022 pneumococcal polysaccharide vaccine, 23 valent Inocencio Rosado Work Phone: [facility] 02-04-2022 Pfizer COVID-19 Vac Bivalent 30 MCG/0.3ML Intramuscular Suspension Inocencio Rosado [facility] Work Phone: 08-08-2021 Comirnaty 30 MCG/0.3 ML Intramuscular Suspension Referring Provider Unknown [facility] [address] [place] Work Phone: 08-08-2021 Pfizer-BioNTech COVI D-19 Vacc 30 MCG/0.3ML Intramuscular Suspension Referring Provider Unknown [facility] [address] [place] Work Phone: Comment on above: Series: 01-24-2021 Fluad Quadrivalent 0 .5 ML Intramuscular Prefilled Syringe Referring Provider Unknown [facility] 01-24-2021 influenza, seasonal, injectable MD Inocencio Rosado Work Phone: [facility] 01-24-2021 pneumococcal conjuga te vaccine, 13 valent Referring Provider Unknown [facility] 06-29-2020 Pf[employer] COVI D-19 Vacc 30 MCG/0.3ML Intramuscular Suspension Referring Provider Unknown [facility] 06-08-2020 Pfizer-BioNTech COVI D-19 Vacc 30 MCG/0.3ML Intramuscular Suspension Referring Provider Unknown [facility] 01-24-2020 influenza, injectabl e, quadrivalent, preservative free Referring Provider Unknown [facility] Payers Date Payer Category Payer Self-pay [id number] 2022 Medicare [id number] 2022 Unknown [id number] 2020 Medicare MEDICARE MEDICAR E A AND B [id number] 2020-Present [phone] [address] [address] [place] [address] Medicare [id number]. [id number] 2020 Medicare [id number] 1.13.647.2.7.3. [id number] 2020 Unknown MMO MMO MEDICARE SUPPLEMENT [id number] 2020-Present [phone] [address] [place] [address] Indemnity [id number] 1.2.840.978987.1.13.159.2.7.3. [id number] 1955 Unknown [id number] 2.840.1.416108.3.579.2.356 1955 Unknown [id number] 2.16.840.1.018638.3.579.2.356 1955 Unknown [id number] 2.16.840.1.971468.3.579.2.356 1955 Unknown [id number] 2.16.840.1.149028.3.579.2.1068 1955 Unknown [id number] 2.16.840.1.535410.3.579.2.8 1955 Unknown [id number] 2.16.840.1.678747.3.579.2.1067 1955 Unknown [id number] 2.16.840.1.135977.3.579.2.1067 1955 Unknown [id number] 2.16.840.1.919973.3.579.2.1067 1955 Unknown [id number] 2.16.840.1.084937.3.579.2.1067 1955 Unknown [id number] 2.16.840.1.889891.3.579.2.1067 1955 Unknown [id number] 2.16.840.1.498711.3.579.2. 1955 Unknown [id number] 2.16.840.1.895000.3.579.2. 1955 Unknown [id number] 2.840.1.554179.3.579.2. 1955 Unknown [id number] 2.16.840.1.692315.3.579.2. 1955 Unknown [id number] 2.16840.1.947452.3.579.2. 1955 Unknown [id number] 2.16840.1.417851.3.579.2. 1955 Unknown [id number] 2.16.840.1.115667.3.579.2. 1955 Unknown [id number] 2.16.840.1.471980.3.579.2. 1955 Unknown [id number] 2.16.840.1.664976.3.579.2. 1955 Unknown [id number] 2.16.840.1.437615.3.579.2. 1955 Unknown [id number] 2.16.840.1.690177.3.579.2.356 1955 Unknown [id number] 2.16.840.1.534458.3.579.2. 1955 Unknown [id number] 2.16.840.1.920545.3.579.2. 1955 Unknown [id number] 2.16840.1.022416.3.579.2. 1955 Unknown [id number] 2.16.840.1.242703.3.579.2. 1955 Unknown [id number] 2.840.1.684422.3.579.2. 1955 Unknown [id number] 2.840.1.226900.3.579.2. 1955 Unknown [id number] 2.840.1.555384.3.579.2. 1955 Unknown [id number] 2.840.1.724695.3.579.2. 1955 Unknown [id number] 2.840.1.661498.3.579.2. 1955 Unknown [id number] 2.840.1.462941.3.579.2. 1955 Unknown [id number] 2.840.1.520124.3.579.2. 1955 Unknown [id number] 2.840.1.328037.3.579.2. 1955 Unknown [id number] 2.840.1.133559.3.579.2. 1955 Unknown [id number] 2.16840.1.317812.3.579.2. 1955 Unknown [id number] 2.840.1.811090.3.579.2. 1955 Unknown [id number] 2.16.840.1.869618.3.579.2.356 1955 Unknown [id number] 2.16.840.1.593635.3.579.2. 1955 Unknown [id number] 2.16.840.1.934564.3.579.2. 1955 Unknown [id number] 2.16.840.1.271752.3.579.2. 1955 Unknown [id number] 2.16.840.1.965935.3.579.2. 1955 Unknown [id number] 2.16840.1.073176.3.579.2. 1955 Unknown [id number] 2.16840.1.576486.3.579.2 1955 Unknown [id number] 2.840.1.156180.3.579.2 1955 Unknown [id number] 2.16840.1.263964.3.579.2 1955 Unknown [id number] 2.16840.1.075165.3.579.2. 1955 Unknown [id number] 2.16840.1.576244.3.579.2. 1955 Unknown [id number] 2.16840.1.752992.3.579.2. 1955 Unknown [id number] 2.16.840.1.501093.3.579.2. 1955 Unknown [id number] 2.16.840.1.042428.3.579.2 1955 Unknown [id number] 2.16.840.1.039814.3.579.2 Self-pay 112 Self-pay 1234 Unknown Unknown [id number] 2.16.840.1.970400.3.579.2.531 Social History Date Type Detail Facility Tobacco smoking stat us NHIS Tobacco smoking consumption unknown [facility] Start: 1955 Sex Assigned At [facility] on file [facility] Start: 07-08-2021 End: 05-24-2023 Exposure to SARS-CoV-2 (event) Not sure [facility] Start: 08-06-2021 End: 05-24-2023 Tobacco smoking status NHIS Never smoked tobacco [facility] Start: 08-06-2021 End: 05-24-2023 Tobacco use and exposure Smokeless tobacco non-user 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 [employer]; Start: 05-24-2023 Alcohol intake Current drinke r of alcohol (finding) [facility] Work Phone: Start: 05-24-2023 Alcohol Comment ocassionally [facility] Work Phone: Start: 05-24-2023 Gender identity Not on file [facility] Work Phone: Start: 01-11-2023 Sexual orientation Choose not to dis close [facility] Work Phone: Clinical Notes 02-24-2021 to 05-08-2024 Zoie Tejeda, MARQUEZ-UNIT RECEPTIONIST - 01/31/2024 10:00 AM EDTDaniel Jimenez DO - 05/24/2023 3:00 PM ESTPatient InstructionsPatient InstructionsNancy Villalta, - 08/06/2021 9:30 AM EDT Note Date & Type Note Facility 05-08-2024 Note - From: NICOLE PETERS DO To: [facility] Clinical Pool ([facility] Sent: 05/08/2024 07:35:10 EST Subject: FW: Medication Management Due Date/Time: 05/08/2024 21:25:00 EST Caller Name: FLAQUITA ROBERTSON; Caller Number: , --------- From: [facility] [id number] To: NICOLE PETERS DO Sent: May 06, 2024 8:25:26 PM DIGITAL PRODUCT SPECIALIST Subject: Medication Management Due: May 07, 2024 12:21:05 AM DIGITAL PRODUCT SPECIALIST On Hold Pending Signature Drug: eszopiclone (eszopiclone [...] from Pharmacy: --------- From: Radha Ferraro To: [facility] [id number] Sent: 05/08/2024 07:52:01 EST Subject: FW: Medication Management Not Approved: proposed to provider eszopiclone (ESZOPICLONE 3 MG TABLET) TAKE 1 TABLET BY MOUTH EVERY NIGHT AT BEDTIME NEEDED FOR INSOMNIA Qty: 30 tab(s) Days Supply: 30 Refills: 0 Substitutions Allowed Route To Pharmacy - [facility] [id number] Signed by Radha Ferraro [facility] 04-04-2024 Note - From: NICOLE PETERS DO To: [facility] Clinical Pool ([facility]); Sent: 04/04/2024 07:44:07 EST Subject: FW: Medication Management Due Date/Time: 04/04/2024 21:21:00 EST Caller Name: ROBERTSON FLAQUITA FORBES; Caller Number: , --------- From: [facility] [id number] To: NICOLE PETERS DO Sent: April 03, 2024 8:21:41 PM DIGITAL PRODUCT SPECIALIST Subject: Medication Management Due: April 04, 2024 12:06:32 AM DIGITAL PRODUCT SPECIALIST On Hold Pending Signature Drug: eszopiclone (Lunesta 3 mg oral tablet), TAKE 1 TABLET BY MOUTH AT BEDTIME NEEDED FOR INSOMNIA Quantity: 30 tab(s) Days Supply: 0 Refills: 0 Substitutions Allowed Notes from Pharmacy: Dispensed Drug: eszopiclone (eszopiclone 3 mg oral tablet), TAKE 1 TABLET BY MOUTH AT BEDTIME NEEDED FOR INSOMNIA Quantity: 30 tab(s) Days Supply: 30 Refills: 0 Substitutions Allowed Notes from Pharmacy: --------- From: Radha Ferraro To: [facility] [id number] Sent: 04/04/2024 08:47:31 EST Subject: FW: Medication Management Not Approved: PROPOSED TO PROVIDER eszopiclone (ESZOPICLONE 3 MG TABLET) TAKE 1 TABLET BY MOUTH AT BEDTIME NEEDED FOR INSOMNIA Qty: 30 tab(s) Days Supply: 30 Refills: 0 Substitutions Allowed Route To Pharmacy - [facility] [id number] Signed by Radha Ferraro [facility] 03-07-2024 Note - From: NICOLE PETERS DO To: [facility] Clinical Pool ([facility]); Sent: 03/07/2024 16:29:13 EST Subject: FW: Medication Management Due Date/Time: 03/08/2024 14:56:00 EST Caller Name: FLAQUITA ROBERTSON; Caller Number: Dipesh , --------- [facility] [id number] To: NICOLE PETERS DO Sent: March 07, 2024 1:56:59 PM DIGITAL PRODUCT SPECIALIST Subject: Medication Management Due: March 08, 2024 12:10:18 AM DIGITAL PRODUCT SPECIALIST On Hold Pending Signature Drug: eszopiclone (eszopiclone [...] from Pharmacy: --------- [facility]: Radha Ferraro [facility] [id number] Sent: 03/07/2024 16:48:11 EST Subject: FW: Medication Management Not Approved: proposed to provider eszopiclone (ESZOPICLONE 3 MG TABLET) TAKE 1 TABLET BY MOUTH EVERY NIGHT AT BEDTIME NEEDED FOR INSOMNIA Qty: 30 tab(s) Days Supply: 30 Refills: 0 Substitutions Allowed Route To Pharmacy - [facility] [id number] Signed by Radha Ferraro [facility] 02-08-2024 Note PROCEDURE: XR Foot C omplete [...] MD 02/09/24 3:03 pm Technologist: Ian SO [facility] 02-03-2024 Note - From: NICOLE PETERS DO To: [facility] Clinical Pool ([facility]); Sent: 02/03/2024 14:42:29 EDT Subject: FW: Medication Management Due Date/Time: 02/04/2024 13:26:00 EDT Caller Name: FLAQUITA ROBERTSON; Caller Number: Dipesh , Liliana --------- From: [facility] [id number] To: NICOLE PETERS DO Sent: February 03, [...] from Pharmacy: --------- From: Radha Ferraro To: [facility] [id number] Sent: 02/03/2024 16:21:03 EDT Subject: FW: Medication Management Not Approved: proposed to provider LORazepam (LORazepam 0.5 MG TABLET) TAKE 1 TABLET BY MOUTH 2 TIMES A DAY NEEDED FOR ANXIETY Qty: 60 tab(s) Days Supply: 30 Refills: 0 Substitutions Allowed Route To Pharmacy - [facility] [id number] Signed by Radha Ferraro Not Approved: proposed to provider eszopiclone (ESZOPICLONE 3 MG TABLET) TAKE 1 TABLET BY MOUTH EVERY NIGHT AT BEDTIME NEEDED FOR INSOMNIA Qty: 30 tab(s) Days Supply: 30 Refills: 0 Substitutions Allowed Route To Pharmacy [facility] [id number] Signed by Radha Ferraro [facility] 01-31-2024 History of Present illness Narrative Patient [...] or grammatical errors documented in this encounter [facility] Work Phone: 01-10-2024 Note - From: NICOLE PETERS DO To: [facility] Clinical Pool ([facility]); Sent: 01/07/2024 16:24:13 EDT Subject: FW: Medication Management Due Date/Time: 01/08/2024 10:38:00 EDT Caller Name: FLAQUITA ROBERTSON; Caller Number: Dipesh , Liliana --------- From: [facility] [id number] To: NICOLE PETERS DO Sent: January 07, [...] Pharmacy: --------- From: Griselda Smith MA To: [facility] [id number] Sent: 01/10/2024 08:17:36 EDT Subject: FW: Medication Management Not Approved: Refill not appropriate, Proposal sent to provider eszopiclone (ESZOPICLONE 3 MG TABLET) TAKE 1 TABLET BY MOUTH AT BEDTIME NEEDED FOR INSOMNIA Qty: 30 tab(s) Days Supply: 30 Refills: 0 Substitutions Allowed Route To Pharmacy - [facility] [id number] Signed by Griselda Smith MA Not Approved: Refill not appropriate, Proposal sent to provider LORazepam (LORazepam 0.5 MG TABLET) TAKE 1 TABLET BY MOUTH 2 TIMES A DAY NEEDED FOR ANXIETY Qty: 60 tab(s) Days Supply: 30 Refills: 0 Substitutions Allowed Route To Pharmacy - [facility] [id number] Signed by Griselda Smith MA [facility] 12-08-2023 Note - From: NICOLE PETERS DO To: [facility] Clinical Pool ([facility]); Sent: 12/07/2023 14:53:55 EDT Subject: FW: Medication Management Due Date/Time: 12/08/2023 14:28:00 EDT Caller Name: FLAQUITA ROBERTSON; Caller Number: H , --------- [facility] [id number] To: NICOLE PETERS DO Sent: December 07, [...] from Pharmacy: --------- From: Radha Ferraro To: [facility] [id number] Sent: 12/08/2023 13:52:25 EDT Subject: FW: Medication Management Not Approved: proposed to provider eszopiclone (ESZOPICLONE 3 MG TABLET) TAKE 1 TABLET BY MOUTH AT BEDTIME NEEDED FOR INSOMNIA Qty: 30 tab(s) Days Supply: 30 Refills: 0 Substitutions Allowed Route To Pharmacy [facility] [id number] Signed by Radha Ferraro Not Approved: proposed to provider LORazepam (LORazepam 0.5 MG TABLET) TAKE 1 TABLET BY MOUTH 2 TIMES A DAY NEEDED FOR ANXIETY Qty: 60 tab(s) Days Supply: 30 Refills: 0 Substitutions Allowed Route To Pharmacy [facility] [id number] Signed by Radha Ferraro [facility] 11-10-2023 Note Patient Education Ma terials [...] these instructions at home: Medicines ? Take otod-fiw-iescjee and prescription medicines only as told by [...] provider. Document Revised: 11/22/2020 Document Reviewed: 11/22/2020 [place] Patient Education ? 2022 [employer]ura!. [facility] 11-08-2023 Note - From: NICOLE PETERS DO To: [facility] Clinical Pool ([facility]); Sent: 11/08/2023 07:40:19 EDT Subject: FW: Medication Management Due Date/Time: 11/08/2023 21:09:00 EDT Caller Name: FLAQUITA ROBERTSON; Caller Number: H , --------- From: [facility] [phone] To: NICOLE PETERS DO Sent: November 07, [...] from Pharmacy: --------- From: Radha Ferraro To: [facility] [id number] Sent: 11/08/2023 08:28:25 EDT Subject: FW: Medication Management Not Approved: proposed to provider eszopiclone (ESZOPICLONE 3 MG TABLET) TAKE 1 TABLET BY MOUTH AT BEDTIME NEEDED FOR INSOMNIA Qty: 30 tab(s) Days Supply: 30 Refills: 0 Substitutions Allowed Route To Pharmacy - [facility] [id number] Signed by Radha Ferraro [facility] 11-03-2023 Note - From: NICOLE PETERS DO To: [facility] Clinical Pool ([facility]); Sent: 11/03/2023 07:34:17 EDT Subject: FW: Medication Management Due Date/Time: 11/03/2023 17:13:00 EDT Caller Name: FLAQUITA ROBERTSON; Caller Number: H , M --------- From: [facility] [phone] To: NICOLE PETERS DO Sent: November 02, [...] Pharmacy: --------- From: Griselda Smith MA To: [facility] [id number] Sent: 11/03/2023 08:43:22 EDT Subject: FW: Medication Management Not Approved: Refill not appropriate, proposal sent to provider LORazepam (LORazepam 0.5 MG TABLET) TAKE 1 TABLET BY MOUTH 2 TIMES A DAY NEEDED FOR ANXIETY Qty: 60 tab(s) Days Supply: 30 Refills: 0 Substitutions Allowed Route To Pharmacy - [facility] [id number] Signed by Griselda Smith MA [facility] 09-26-2023 Note Entered by IDALIA PETERS DO on September 26, 2023 18:58:33 EDT From: NICOLE PETERS DO To: [facility] [id number] Sent: 09/26/2023 18:58:33 EDT Subject: Medication Management Submitted: Complete:venlafaxine (Effexor XR 150 mg oral capsule, extended release) Signed by NICOLE PETERS DO 09/26/2023 18:58:00 EDT Approved with modifications: venlafaxine (VENLAFAXINE HCL ER 150 MG CAP) TAKE 1 CAPSULE BY MOUTH DAILY Qty: 90 cap(s) Days Supply: 90 Refills: 1 Substitutions Allowed [facility] [id number] --------- [facility] [id number] To: FRANNICOLE George VASQUEZ Sent: September 24, 2023 5:29:01 AM CDT [...] 0 Substitutions Allowed Notes from Pharmacy: --------- [facility] 08-25-2023 Note Discharge/Transfer N ote Type [...] (electronically signed on 08/25/2023 at 9:11 AM) [facility] 08-05-2023 Note - From: NICOLE PETERS DO To: [facility] Clinical Pool ([facility]); Sent: 08/05/2023 13:18:50 EDT Subject: FW: Medication Management Due Date/Time: 08/06/2023 13:17:00 EDT Caller Name: FLAQUITA ROBERTSON; Caller Number: , --------- From: [facility] [id number] To: NICOLE PETERS DO Sent: August 05, [...] from Pharmacy: --------- From: Griselda Smith To: [facility] [id number] Sent: 08/05/2023 15:50:09 EDT Subject: FW: Medication Management Not Approved: Refill not appropriate, proposal sent to provider LORazepam (LORazepam 0.5 MG TABLET) TAKE 1 TABLET BY MOUTH TWICE A DAY NEEDED FOR ANXIETY Qty: 60 tab(s) Days Supply: 30 Refills: 0 Substitutions Allowed Route To Pharmacy - [facility] [id number] Signed by Griselda Smith [facility] 05-24-2023 History of Present illness Narrative Patient: Flaquita Robertson [id number] : 1955 -- AGE 67 y.o. Provider: Daniel Jimenez DO Location [facility] Service Date: 05/24/2023 [facility] Follow Visit Note HISTORY OF PRESENT ILLNESS HISTORY OF PRESENT ILLNESS Flaquita Robertson is a 67 y.o. 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 Preferred sleeping position: SLEEP POSITION: supine and [...] conditions (11/05/2021). She is following up at [facility] for an evaluation of [...] sooner as needed. documented in this encounter [facility] Work Phone: 05-24-2023 Instructions Daniel Jimenez DO - 05/24/2023 3:00 PM EST Images from the original note were not included. [facility] DO [address] [facility] [address] [facility] [id number] NAME: Flaquita Robertson DATE: 05/24/2023 Your Sleep [...] or as your insurance allows from your [email or web address] company. Replacement cushions for your PAP mask can be requested monthly if airseals are an issue. - Remember to clean your mask, tubings, and water chamber regularly as instructed. - Avoid driving or operating heavy machinery when drowsy. A person driving while sleepy is five (5) times more likely to have an accident. If you feel sleepy, stick puller and take a short power nap (sleep for less than 30 minutes). Otherwise, ask somebody to drive you. IMPORTANT INFORMATION Call 911 for medical emergencies. Our offices are generally open from Wednesday-Wednesday, 9 am - 5 pm. If you need to get in touch with me, you may either call me and my team(number is below) or you can use [employer]. If a referral for a test, for CPAP, or for another specialist was made, and you have not heard about scheduling this within a week, please call scheduling at [phone] ([phone]). If you are unable to make your [...] Medicine Clinic Appointments (for Pediatric Sleep Clinic): [phone] - option 1 Appointments (for Adult Sleep Clinic): [phone] - option 2 Appointments (For Sleep Studies): [phone]) - option 3 Behavioral Sleep Medicine: [phone] Sleep Surgery: [phone] ENT (Otolaryngology): [phone] Headache Clinic (Neurology): [phone] Neurology: [phone] Psychiatry: [phone] Pulmonary Function Testing (PFT) Center: [phone] Pulmonary Medicine: [phone] [employer] (DME): [place] (DME): [phone] [facility] ([facility]): [phone] OUR ADULT SLEEP MEDICINE TEAM Please do not hesitate to call the office or sleep nurse with any questions between appointments: Adult Sleep Nurses (Lexy Paulino, EDILMA and Dilcia Jones RN): For clinical questions and refilling prescriptions: [phone] Email sleep diaries and other documents at: Adult Sleep Medicine Secretaries: Joy Sage (For Cece/Calderon/Krise/Strohl/Yeh/A dams): P: [phone] F: [phone] Arlette Ordonez (For Cisneros/Guggenbiller): P: [phone] Darya Salcedo (For Jurcevic/Blank): P: [phone] F: [phone] Chica Hairston (For Sylvester): P: [phone] F: [phone] Kellee Cory (For Carri/Amy/Zakhary): P: [phone] F: [phone] Yoko Ibanez (For Estrada/Deleon): P: [phone] F: [phone] Adult Sleep Medicine Advanced Practice Providers: Jim Arzola ([place], [place]) Shantell Reyes ([facility]) Miguelina Mike CNP ([place], [place], [place]) Gia De La Garza CNP ([place], [place], [place]) Loan Phan ([place], [place], [place]) Twila Deleon CNP ([place], [place]) OUR SLEEP TESTING LOCATIONS Our team will contact you to schedule your sleep study, however, you can contact us as follow: Main Phone Line (scheduling only): [phone]), option 3 Adult and Pediatric Locations [facility] (6 years and older): [facility] - 4th floor ([address] [place] [address]) After hours line: [phone] [facility] (Main campus: All ages): [facility], 6th floor. After hours line: [phone] [place] (5 years and older; younger considered on mlhk-kd-burl basis): [address]; [address], [address]. Scheduling After hours line: [phone] [place] (6 years and older): [address]; [address]; [address] [place] (6 years and older): [address] [facility], [address] After hours line: [phone] [place] (13 years and older) in [place]: [address], 2nd floor After hours line: [phone] [facility] (13 year and older): [address] After hours line: [phone] Adult Only Locations: Aishwarya (18 years and older): [address] [facility], 2nd floor [place] (18 years and older): [address]; 4th floor After hours line: [phone] Victor Manuel Sanders (18 years and older) at [place]: [address] [facility][Note 3] After hours line: [phone] CONTACTING YOUR SLEEP MEDICINE PROVIDER Send a message directly to your provider through My Chart , which is the email service through your Records Account: [email or web address] Call [phone] and leave a message. One of the administrative assistants will forward the message to your sleep medicine provider through My Chart and/or email. Your sleep medicine provider for this visit was: Daniel Jimenez DO documented in this encounter [facility] Work Phone: 08-03-2022 History of Present illness Narrative cc: [...] been seen by a [facility], who diagnosed her with occipital neuralgia; she stated that she did 5 weeks of PT, and then plateaued ; the PT also attempted dry needling , which she found ineffective; she stated that she will be getting a second opinion with neurology next week; patient also visited a chiropractor in [place] who is a cervical specialist ; she was told that her neck was off by 3 degrees but after her adjustment she is now aligned Patient also complains of ongoing sleep issues, coughing diagnosed as reflux, mood swings, and fatigueand noted that she is getting a second opinion with neurology next week [employer] Work Phone: 05-29-2022 History of Present illness [...] in February 2021. Is under care with [facility] recovery clinic. Had extensive imaging and testing [...] no difference to her headache as well [employer] Work Phone: 05-04-2022 Note Therapy Diagnosis Assessed [...] progression. They are being discharged to their [facility]. Response to treatment: decreased pain, improved joint [...] code time is 40 minutes. Therapeutic exercise (29174): timed minutes 30, units 2 . UBE [...] added Lemperts maneuver to HEP. Manual Therapy (57847): timed minutes 10, units 1 . STM to rigjht Scalenes, Levator, [place] suboccipital releases with gentle traction includes vestibular testing . 'Scores and Scales' Signatures Electronically signed by : Manish Kramer, PT; May 04 2022 12:25PM EST (Author) [employer] 03-02-2022 Chief complaint Narrative - Reported An [...] name, , and address.CC: it's going well [place] [address] [place] Work Phone: 11-12-2021 History of Present [...] some weight. She is meeting with a parent trainer once a week and this week [...] end of the day. She appreciates this leader writer increasing the dose for the effexor. [...] lives close to her mother is working paper tube cutter, which leaves the patient to care for [...] and is currently wearing a heart monitor. [address] Work Phone: 10-24-2021 Chief complaint Narrative [...] visit.66 y/o female presents for initial consultation. [facility] Work Phone: 08-06-2021 Note HNO ID: [id number] Author: Nancy Villalta, DO Service: ? Author Type: Fellow Type: Progress Notes Filed: 08/25/2021 10:39 AM Note Text: Headache [facility] Facial [facility] [address] [place] [address] Referring: SELF PCP: Benito Diaz MD Neurology [...] w/ 07/14/21: De (more content not included)... [facility] 08-06-2021 Instructions Nancy Villalta, - [...] buy supplements cheaper (especially Coenzyme Q10) at www.BrightSun or at [employer]. General Headache Instructions: 1) Maintain a headache diary; learn to identify and avoid triggers. 2) Limit use of acute treatments (jpcd-qbh-vrwinle medications, triptans, etc.) to no more than [...] Zeynep Beth, Mug/A+W Root Beer, Minute Maid [employer], Slice are okay)) -Foods containing nitrates (deli meat, ham, corrales, sausage, hot dogs) -Tyramine (aged cheese; can only have Belgian cheese, cottage cheese, Velveeta and fresh mozarella (most pizza uses aged mozarella)) -MSG (New Zealander/ foods, Doritos, all flavored chips and Ramen [...] Feverfew: Feverfew is a common garden herb jamul to [place] and popular in [place] [...] The main way of communication is by Tupalohart rather than phone lines, so if you have not signed up, please do so. Tupalohart is also the way that you can [...] offering to allow you to have a qgto-og-eayl conversation with your doctor for 15 minutes [...] WEBCAM CONNECTED: 1. Go to the URL: [email or web address] 2. Click on Sign Up and Create a patient account for yourself. 3. Please also follow the links to Test My Computer . 4. Follow the steps suggested, testing your Internet Speed, Webcam, Microphone, Speaker, and your video software. 5. Please make sure your video software is up-to-date. This is a safe, [facility] approved download, and will not harm your computer. ON AN IPHONE, IPAD, OR ANDROID DEVICE: 1. Open up the K[employer] Store or [employer] WebTV Production[employer] and search [facility] Dojo Online. 2. Download and Install the Application. 3. Tap on Sign Up and create a patient account for yourself. 4. Please use an e-mail address that you frequently check, as you will receive an e-mail appointment from [facility] Dojo Online. Find our user guide, here: [email or web address] Important: Don t forget your password you [...] be connected to the provider. Please call [phone] prior to your visit if you have any questions regarding technology! documented in this encounter [facility] 08-06-2021 History of Present illness Narrative Images from the original note were not included. [facility] [address] [place] [address] Referring: SELF PCP: Benito Diaz MD Neurology was asked to evaluate Flaquita Robertsno for a chief complaint of Headaches. Our [...] intact. Coordination: Finger-to- nose-finger intact bilaterally and Mhex-gb-btoe intact bilaterally. Gait: normal-based. IMPRESSION: Flaquita Robertson [...] Dr. Prince; please see addendum below. Nancy Villalta, Headache Fellow 08/06/2021 I personally have reviewed [...] August 25, [address] encounter [facility] 08-03-2021 History of Present illness Narrative [...] been seen by a headache specialist [facility], who diagnosed her with occipital neuralgia; she stated that she did 5 weeks of PT, and then plateaued ; the PT also attempted dry needling , which she found ineffective; she stated that she will be getting a second opinion with neurology next week; patient also visited a chiropractor in [place] who is a cervical specialist ; she was told that her neck was off by 3 degrees but after her adjustment she is now aligned Patient also complains of ongoing sleep issues, coughing diagnosed as reflux, mood swings, and fatigueand noted that she is getting a second opinion with neurology next week [employer] Phone: 08-03-2021 History of Present illness Narrative [...] been seen by a headache specialist at [facility], who diagnosed her with occipital neuralgia; she stated that she did 5 weeks of PT, and then plateaued ; the PT also attempted dry needling , which she found ineffective; she stated that she will be getting a second opinion with neurology next week; patient also visited a chiropractor in [place] who is a cervical specialist ; she was told that her neck was off by 3 degrees but after her adjustment she is now aligned Patient also complains of ongoing sleep issues, coughing diagnosed as reflux, mood swings, and fatigueand noted that she is getting a second opinion with neurology next week [facility] [employer] Phone: 08-03-2021 History of Present illness Narrative [...] been seen by a headache specialist at [facility], who diagnosed her with occipital neuralgia; she stated that she did 5 weeks of PT, and then plateaued ; the PT also attempted dry needling , which she found ineffective; she stated that she will be getting a second opinion with neurology next week; patient also visited a chiropractor in [place] who is a cervical specialist ; she was told that her neck was off by 3 degrees but after her adjustment she is now aligned Patient also complains of ongoing sleep issues, coughing diagnosed as reflux, mood swings, and fatigueand noted that she is getting a second opinion with neurology next week [employer] Phone: 07-25-2021 History of Present illness Narrative Patient being assessed today for initial evaluation and second opinion regarding migraine headaches. Patient's was being followed by [facility] neurology and was last seen [...] behind her right eye or the right confucianist area and describes it as an aching [...] normal limits. Patient also is established with [facility] medicine and receives acupuncture and has a second [...] not corrected for typographical or grammatical errors [facility] Work Phone: 07-24-2021 Miscellaneous Notes Received reports from CT myelogram of complete spine. Uploaded to chart in Scanned Docs. documented in this encounter [facility] 07-15-2021 Miscellaneous Notes Images from the original note were not included. OSH NI referral from Dr. Wilmer Carrillo, [facility], [place], [place] DX: intractable headache,migraines, borderline intracranial hypotension RFV: Evaluate and treat Scheduling instructions: Patient can see first available Headache specialist Patient to have CT myelogram spine at [facility] with Dr. Quintero. Outside records will be uploaded to chart in Scanned Docs. documented in this encounter [facility] 06-05-2021 History of Present illness Narrative [...] been seen by a headache specialist [facility], who diagnosed her with occipital neuralgia; she stated that she did 5 weeks of PT, and then plateaued ; the PT also attempted dry needling , which she found ineffective; she stated that she will be getting a second opinion with neurology next week; patient also visited a chiropractor in [place] who is a cervical specialist ; she was told that her neck was off by 3 degrees but after her adjustment she is now aligned Patient also complains of ongoing sleep issues, coughing diagnosed as reflux, mood swings, and fatigueand noted that she is getting a second opinion with neurology next week [facility] [employer] App Phone: 02-24-2021 History of Present illness Narrative Covid-19 infection date: 02/24/2021 (sx: cough, fatigue, headache - no hospitalization, treated with monoclonal antibody infusion in [place])Covid-19 vaccine status: Pfizer 06/07/20, 06/29/20, 08/08/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 Inocencio Rosado, local Neurologist Dr. Wilmer Carrillo, Francisca Taylor, UNIT RECEPTIONIST, Neurology Dr. [facility] scores:PHQ-9: 21GAD-7: 9Sleep Wellness: 9 snoresFSS [...] helpingFUV is in October with [facility], then [...] would like to restart exercises with a household personal assistant who specializes in helping patients with DIGITAL COMMUNITY MANAGER dysfunctionHas to lay on her left, cannot [...] for headache and panic attack-07/2021 Neurology at [facility] for headaches suspects cervical paraspinal mm spasms [...] local Neurologist Dr. Wilmer Carrillo, Francisca Taylor, UNIT RECEPTIONIST, Neurology Dr. [facility] scores:PHQ-9: 21GAD-7: 9Sleep Wellness: 9 snoresFSS [...] helpingFUV is in October with [facility]rology [facility] but [facility]/early 20s, then [...] would like to restart exercises with a household personal assistant who specializes in helping patients with DIGITAL COMMUNITY MANAGER dysfunctionHas to lay on her left, cannot [...] for headache and panic attack-07/2021 Neurology at [facility] for headaches suspects cervical paraspinal mm spasms [...] Hx: hysterectomy 2001, squamous cell carcinoma 2020 [facility] Work Phone: 02-24-2021 History of Present illness Narrative Covid-19 infection date: 02/24/2021 (sx: cough, fatigue, headache - no hospitalization, treated with monoclonal antibody infusion in [place])Covid-19 vaccine status: Pfizer 06/07/20, 06/29/20, 08/08/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 Inocencio Rosado, local Neurologist Dr. Wilmer Carrillo, Francisca Taylor, UNIT RECEPTIONIST, Neurology Dr. Vill[facility] scores:PHQ-9: 21GAD-7: 9Sleep Wellness: 9 snoresFSS [...] helpingFUV is in October with Neurology at [facility] but would like a second opinion at [...] would like to restart exercises with a household personal assistant who specializes in helping patients with DIGITAL COMMUNITY MANAGER dysfunctionHas to lay on her left, cannot [...] for headache and panic attack-07/2021 Neurology at [facility] for headaches suspects cervical paraspinal mm spasms [...] Hx: hysterectomy 2001, squamous cell carcinoma 2020 [facility] Work Phone: 02-24-2021 History of Present illness Narrative 66 y/o female with PMH anxiety, depression, migraines, insomnia, PASC presents for initial consultation. Referred by covid clinic, Erlin Nguyễn. 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 Lives with . [...] able to help him out. Granddaughter in [place] with Down syndrome and heart issues- had open heart surgery. 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 Inocencio Rosado, local Neurologist Dr. Wilmer Carrillo, Francisca Taylor, UNIT RECEPTIONIST, Neurology Dr. Villalta [facility] scores:PHQ-9: 21GAD-7: 9Sleep Wellness: 9 snoresFSS [...] helpingFUV is in October with Neurology [facility], then [...] not been able to do this since COV, Gained weight, cannot fit clothes anymore, would like to restart exercises with a household personal assistant who specializes in helping patients with DIGITAL COMMUNITY MANAGER dysfunctionHas to lay on her left, cannot lay on her right side due to headacheOverall has been suffering from body aches since COV, unsure if r/t more sedentary lifeNausea occurs [...] for headache and panic attack-07/2021 Neurology at [facility] for headaches suspects cervical paraspinal mm spasms [...] Hx: hysterectomy 2001, squamous cell carcinoma 2020 [facility] Work Phone: Chief complaint Narrative - Reported HeadacheNeurologic Evaluation.An interactive audio and video telecommunication system which permits real time communications between the patient (at the originating site) and provider (at the distant site) was utilized to provide this telehealth service.Verbal consent was requested and obtained from FLAQUITA ROBERTSON on this date, 10/15/2021 10:30 AM , for a telehealth visit. PC-Cyhqihjmz-Iavqgvcx B [address] Work Phone: Chief complaint Narrative - Reported 1 vpcyThe patient was cleared by a COVID-19 screening questionnaire and temperature scan, which showed temperature at or below 99.5F [facility] Work Phone: Chief complaint Narrative - Reported MigraineNeurologic Evaluation.An interactive audio and video telecommunication system which permits real time communications between the patient (at the originating site) and provider (at the distant site) was utilized to provide this telehealth service.Verbal consent was requested and obtained from FLAQUITA ROBERTSON on this date, 06/03/2022 09:30 AM , for a telehealth visit. SM-Zgmfskqgi-Tpgypezx 101 Work Phone: Chief complaint Narrative - Reported 2 vpcyThe patient was cleared by a COVID-19 screening questionnaire and temperature scan, which showed temperature at or below 99.5F [facility] Work Phone: Chief complaint Narrative - Reported Visit 3 MedicareThe patient was cleared by a COVID-19 screening questionnaire upon entry to the suite.Please note: Voice to text software was used when completing this note. While the note was proofread, portions may include grammatical errors. Please contact me with any questions/concerns as it relates to these types of errors. [facility] Work Phone: Evaluation note Diagnosis Occipital neuralgia of right side- Primary Cervical paraspinal muscle spasm Spasm of muscle Migraine without aura and without status migrainosus, not intractable Migraine without aura, without mention of intractable migraine without mention of status migrainosus [facility] Diagnosis Migraine without aura and without status migrainosus, not intractable- Primary Migraine without aura, without mention of intractable migraine without mention of status migrainosus Cervical paraspinal muscle spasm Spasm of muscle Occipital neuralgia of right side [facility] this [facility] noteNo assessment information availableOhiohealth [facility] Work Phone: Evaluation note* Diagnosis MYRIAM (obstructive sleep apnea)- Primary Obstructive sleep apnea (adult) (pediatric) documented in this encounter [facility] Work Phone: Evaluation note* Diagnosis Migraine without aura and without status migrainosus, not intractable- Primary documented in this encounter [facility] Work Phone: History of Present illness Narrative* [...] been seen by a headache specialist at [facility], who diagnosed her with occipital neuralgia; she stated that she did 5 weeks of PT, and then plateaued ; the PT also attempted dry needling , whichshe found ineffective; she stated that she will be getting a second opinion with neurology next [place]; patient also visited a chiropractor in [place] who is a cervical specialist ; she was told that her neck was off by 3 degrees but after her adjustment she is now aligned * Patient also complains of ongoing sleep issues, coughing diagnosed as reflux, mood swings, and fatigue * and noted that she is getting a second opinion with neurology next week DONNIE-K[facility] Work Phone: History of Present illness Narrative* [...] 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 * Naps:. 2x per week, around afternoon, [...] not act out of dream. No nightmares. [facility] Work Phone: History of Present illness [...] of motion/joint mobility, sensory and strength. [facility] Work Phone: History of Present illness Narrative* [...] been seen by a headache specialist at [facility], who diagnosed her with occipital neuralgia; she stated that she did 5 weeks of PT, and then plateaued ; the PT also attempted dry needling , whichshe found ineffective; she stated that she will be getting a second opinion with neurology next [place]; patient also visited a chiropractor in [place] who is a cervical specialist ; she was told that her neck was off by 3 degrees but after her adjustment she is now aligned * Patient also complains of ongoing sleep issues, coughing diagnosed as reflux, mood swings, and fatigue * and noted that she is getting a second opinion with neurology next week [employer] App Phone: History of Present illness Narrative* cc: [...] tomorrow on vacation for 1 week in [place] * Initial intake (10/08/2021) * Pt came [...] been seen by a headache specialist at [facility], who diagnosed her with occipital neuralgia; she stated that she did 5 weeks of PT, and then plateaued ; the PT also attempted dry needling , whichshe found ineffective; she stated that she will be getting a second opinion with neurology next [place]; patient also visited a chiropractor in [place] who is a cervical specialist ; she was told that her neck was off by 3 degrees but after her adjustment she is now aligned * Patient also complains of ongoing sleep issues, coughing diagnosed as reflux, mood swings, and fatigue * and noted that she is getting a second opinion with neurology next week [facility] Work Phone: History of Present illness Narrative* [...] and improved knowledge and understanding of condition. [facility] Work Phone: history of Present illness Narrative* [...] and improved knowledge and understanding of condition. [facility] Work Phone: history of Present illness Narrative* [...] today's treatment with some difficulty. [facility] Work Phone: history of Present illness Narrative* [...] complete today's treatment with some difficulty. [facility] Work Phone: History of Present illness Narrative* No dizziness with any change of position today. * Patient has met most goals and is independent with their home program progression. * They are being discharged to their [facility]. * Response to treatment: decreased pain, improved joint mobility/ROM, improved posture and improved knowledge and understanding of condition. * Patient was able to complete today's treatment with some difficulty. 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 * Naps:. 2x per week, around afternoon, [...] decreased nocturnal awakenings and decreasedsnoring/ choking/ gasping. Connie [facility] Work Phone: History of Present illness Narrative* [...] issues patient had to pay over $800 viy-jy-tuuzzr for a 1 month prescription of the [...] was not corrected for typographical orgrammatical errors AD-Eckigcifv-Gdaxlmyu [address] Work Phone: History of Present illness Narrative* 66 y/o female with PMH anxiety, depression, migraines, insomnia, PASC presents for initial consultation. Referred by Erlin pillai. 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 Lives with . [...] major impact on fatigue * - Sees household personal assistant- started pilates, TRX- twice weekly * - [...] able to help him out. Granddaughter in [place] with Down syndrome and heart issues- had open heart surgery. 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 Sees psychiatrist and [...] * Drinks-6-8 glasses of water; 1-2 coffees -[facility] [employer] Phone: History of Present illness Narrative* 66 y/o female with PMH anxiety, depression, migraines, insomnia, PASC presents for follow up. Referred by covid clinic, Erlin Nguyễn. 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 Lives with . [...] major impact on fatigue * - Sees household personal assistant- started pilates, TRX- twice weekly * - Recognizes HR elevates quickly with exertion, so needs to modify exercise routine * - Has Feel Better in Five book, although has not yet read it * - Rarely uses ativan * - Taking [facility] multivitamin with 500 mg Turmeric, and 1200 [...] able to help him out. Granddaughter in [place] with Down syndrome and heart issues- had open heart surgery. 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 Sees psychiatrist and [...] * Drinks-6-8 glasses of water; 1-2 coffees>>> itravel Phone: History of Present illness Narrative* Pre-Treatment [...] in February 2021. Is under care with [facility]. Had extensive imaging and testing including [...] no difference to her headache as well [place] Phone: History of Present illness Narrative* Pre-Procedure [...] based on patient's history -[facility] [address] Work Phone: History of Present [...] back pain. She does workout with a parent trainer twice a week and tries to [...] in February 2021. Is under care with [facility] recovery clinic. Had extensive imaging and testing [...] no difference to her headache as well [facility] Phone: History of Present illness Narrative* Pre-Procedure [...] contraindications based on patient's history -[facility] [address] Work Phone: History of [...] history? No contraindications based on patient's history TM-Watkxkzew-Lrykfcnq [address] Work Phone: Reason for visit Narrative* Initial Evaluation . Patient is a 66 y/o female, who presented to the clinic today for a Physical therapy evaluation, with complaints of dizziness, nausea, and headaches, that began in February of last year, after being diagnosed with COVID. * Referred by: Flower Nguyễn CNP [facility] Work Phone: Reason for Referral Specialty Diagnoses / Procedures Referred By Manpreet deluca Referred To Contact [facility] Diagnoses Occipital neuralgia of right side Cervical paraspinal muscle spasm Procedures CONSULT TO PHYSICAL THERAPY PHYSICAL THERAPY EVALUATION HIGH COMPLEX 45 MINS [address] Headache [address] [place] [address] [facility] [place] [address] [place] [address] Referral ID Status Reason Start Date Expiration Date Visits Requested Visits Authorized [id number] Pending Review PCP Requested Referral Auto-Generate d [...] speech when experiencing pain, extreme cognitive issues,cc: [id number]/01/21 brain fog, headache different in severity, swelling [...] or prosecute any alcohol or drug abuse patient.[facility] HospitalIn the event this information is protected by the Federal Confidentiality of Alcohol and Drug Abuse Patient Records regulations: The Federal rules restrict any use of the information to criminally investigate or prosecute any alcohol or drug abuse patient.[facility] HospitalIn the event this information is protected by the Federal Confidentiality of Alcohol and Drug Abuse Patient Records regulations: The Federal rules restrict any use of the information to criminally investigate or prosecute any alcohol or drug abuse patient.[facility] HospitalIn the event this information is protected by the Federal Confidentiality of Alcohol and Drug Abuse Patient Records regulations: The Federal rules restrict any use of the information to criminally investigate or prosecute any alcohol or drug abuse patient.[facility] Reason for Visit (unrecogniz ed section and content) Reason Comments Received Outside Medical Records OSH NI referral to Headache & Facial Pain Reason Comments Received Outside Medical Records Imaging reports Reason Comments New Patient Reason Comments Follow-up Everything is good w ith cpap machine supplies are good will order supplies soon Care Teams (unrecognized sec tion and content) Credit Card Clerk Relationship Specialty Start Date End Date Benito Diaz [address] [place] [address] PCP - General 08/04/00 Wilmer [address]illo [address] [place] [address] NI Referring Team Neurology 07/15/21 Credit Card Clerk Relationship Specialty Start Date End Date Benito Diaz [address] [place] [address] PCP - General 08/04/00 Wilmer Carrillo [address] [place] [address] NI Referring Team Neurology 07/15/21 Credit Card Clerk Relationship Specialty Start Date End Date Benito Diaz [address] [place] [address] PCP - General 08/04/00 Wilmer Carrillo [address] [place] [address] NI Referring Team Neurology 07/15/21 Credit Card Clerk Relationship Specialty Start Date End Date Benito Diaz [address] [place] [address] PCP - General 08/04/00 Wilmer Carrillo [address] [place] [address] NI Referring Team Neurology 07/15/21 Team Status: Active Member Role Status Dates Inocencio Rosado MD Primary Care Provider Active Team Status: Inactive Member Role Status Dates Inocencio Rosado MD Primary Care Provider Active Ashu Goff OD Attending Provider Active Credit Card Clerk Relationship Specialty Start Date End Date Inocencio Rosado MD [address] [place] [address] PCP - General 04/26/99 INFORMATION SOURCE (unrecogn ized section and content) DATE CREATED AUTHOR 08/27/[address] [facility] DATE CREATED AUTHOR AUTHOR'S ORGANIZ ATION 04/15/[address] [facility] DATE CREATED AUTHOR AUTHOR'S ORGANIZ ATION 05/06/2022 [facility] DATE CREATED AUTHOR AUTHOR'S ORGANIZ ATION 10/28/2022 [facility] DATE CREATED AUTHOR AUTHOR'S ORGANIZ ATION 11/13/2022 [facility] DATE CREATED AUTHOR AUTHOR'S ORGANIZ ATION 04/07/2023 [facility] DATE CREATED AUTHOR AUTHOR'S ORGANIZ ATION 08/26/2023 [facility] DATE CREATED AUTHOR AUTHOR'S ORGANIZ ATION 05/08/2024 [facility] l Goals (unrecognized section and content) Goals [...] BE BASED ON THE PRIMARY CLINICAL RECORDS. [facility], [facility]. provides no warranty or guarantee of the accuracy or completeness of information in this document.
== END 2024-05-09 12:10 | disposition home or self-care (01) ==
LOC: RAD 12:09
PROVIDERS: PCP Family Medicine; Visit Provider Podiatrist Foot & Ankle Surgery
DX: M79.672 Pain in left foot (principal); S92.352D Displaced fracture of fifth metatarsal bone, left foot, subsequent encounter for fracture with routine healing
CPT/HCPCS: 73630